=== PATIENT | male | born 1940 | race Caucasian/White ===

== ENCOUNTER 2016-03-03 17:23 | Emergency (ER) | payer MEDICARE, OTHER ==
[2016-03-03 18:41] LABS: Urine Bacteria Absent (Absent); Urine Bilirubin Negative (Negative); Urine Glucose Negative (Negative); Urine Nitrite Negative (Negative)
[2016-03-03 19:46] LABS: Hematocrit 25 % (42-52); Hemoglobin 7.7 g/dl (14.0-18.0); Mean Corpuscular HGB Conc 31 g/dl (31-36); Mean Corpuscular Hemoglobin 25 pg (27-31); Mean Corpuscular Volume 79 fL (80-94); Mean Platelet Volume 9 um3 (7.4-10.4); Red Blood Count 3.09 10^6/ul (4.0-5.4); Red Cell Distribution Width 21 % (10.5-15); White Blood Count 2.2 10^3/ul (3.5-10.8)
[2016-03-03 19:47] LABS: Add Diff/Slide Review? Manual Diff Added; Comments Flag Yes
[2016-03-03 20:01] LABS: Albumin 3.6 g/dL (3.2-5.2); BUN/Creatinine Ratio 17.2 (8-20); Calcium 9.1 mg/dL (8.6-10.3); EGFR African American 94.3 (>60); EGFR Non-African American 73.3 (>60); Globulin 3.7 g/dL (2-4); Total Bilirubin 0.3 mg/dL (0.2-1.0); Total Protein 7.3 g/dL (6.4-8.9)
[2016-03-03 20:23] LABS: Hypochromasia 2+; Immature Granulocytes 2 % (0-9); Macrocytosis 1+; Microcytosis 1+; Neutrophil % 38 % (38-83); Polychromasia 1+
[2016-03-03 20:59] VITALS: BP 129/83
--- NOTE | 2016-03-04 00:19 | ED ---
Kulwinder Powers Karl, scribed for Parvez Virgen MD on 03/03/16 at 1748 . GI/ HPI - HPI Summary HPI Summary: Pt is a 75 y/o male that presents to the ED c/o pain w/ urination for approx 1 week. Pt was given Bactrim for his sx and took one dose last night and this morning. Pt urinated a few hours ago and saw blood in his urine and came to the ED because he is on Coumadin and is concerned. Pt also reported his pain as a burning pain with urination. Pt denied nausea, SOB, and back pain. Hx: CVA (2013 ), myelodisplastic syndrome, kidney stones, BPH. CAD, quadruple bypass. - History of Current Complaint Time Seen by Provider: 03/03/16 17:34 Stated Complaint: UTI BLOOD IN URINE Hx Obtained From: Patient Onset/Duration: Started Weeks Ago - 1, Atraumatic, Still Present Timing: Constant Severity: Moderate Current Severity: Moderate Associated Signs and Symptoms: Positive: Hematuria, Dysuria. Negative: Back Pain, Nausea Aggravating Factor(s): Nothing Alleviating Factor(s): Nothing - Additional Pertinent History Primary Care Physician: [id number] - Allergy/Home Medications Allergies/Adverse Reactions: Allergies Allergy/AdvReac Type Severity Reaction Status Date / Time Shellfish Allergy Allergy Severe Airway Verified 02/05/16 14:53 Obstruction Lactose Intolerance (GI) Allergy GI Upset Verified 02/05/16 14:53 walnuts Allergy Intermediate Airway Uncoded 02/05/16 14:53 Obstruction PMH/Surg Hx/FS Hx/Imm Hx Endocrine/Hematology History: Reports: Hx Anticoagulant Therapy, Hx Bone Marrow Disease - myelodysplastic syndrome Denies: Hx Diabetes Cardiovascular History: Reports: Hx Angina, Hx Coronary Artery Disease, Hx Hypercholesterolemia, Hx Hypertension - ON MEDS, Hx Syncope, Other Cardiovascular Problems/Disorders - LBBB Denies: Hx Congestive Heart Failure, Hx Pacemaker/ICD Respiratory History: Reports: Hx Sleep Apnea - pt states this may be new to him , unsure. Denies: Hx Asthma, Hx Chronic Obstructive Pulmonary Disease (COPD) GI History: Reports: Hx Gastroesophageal Reflux Disease, Other GI Disorders - GERD History: Reports: Hx Benign Prostatic Hyperplasia, Hx Kidney Stones, Hx Renal Disease - KIDNEY STONES, Other Problems/Disorders - KIDNEY STONES,BPH Denies: Hx Dialysis Musculoskeletal History: Reports: Hx Back Problems, Other Musculoskeletal History - Lumbar spinal stenosis Sensory History: Reports: Hx Contacts or Glasses Denies: Hx Hearing Aid Opthamlomology History: Reports: Hx Contacts or Glasses Neurological History: Reports: Other Neuro Impairments/Disorders - lumbar stenosis Psychiatric History: Reports: Hx Depression Denies: Hx Panic Disorder - Cancer History Cancer Type, Location and Year: prostate - SURGERY Hx Chemotherapy: No Hx Radiation Therapy: No Hx Palliative Cancer Treatment: No - Surgical History Surgery Procedure, Year, and Place: CABG,CATARACT REMOVAL,PROSTATECTOMY,kidney stones,spinal stenosis. QUADRUPAL BYPASS-TONSILS Infectious Disease History: No Infectious Disease History: Reports: Hx Shingles - HX of Denies: Traveled Outside the [place] in Last 30 Days - Family History Known Family History: Positive: Cardiac Disease - Social History Alcohol Use: Rare Alcohol Amount: 1 drink per week Substance Use Type: Reports: None Smoking Status (MU): Former Smoker Type: Cigarettes Have You Smoked in the Last Year: No Review of Systems Constitutional: Negative Eyes: Negative ENT: Negative Cardiovascular: Negative Negative: Shortness Of Breath Negative: Nausea Positive: other - hematuria. Negative: pain - burning w/ urination Musculoskeletal: Negative Skin: Negative Neurological: Negative Psychological: Normal All Other Systems Reviewed And Are Negative: Yes Physical Exam Triage Information Reviewed: Yes Vital Signs On Initial Exam: Initial Vitals Temp Pulse Resp BP Pulse Ox 99.6 F 79 18 145/63 97 03/03/16 17:31 03/03/16 17:31 03/03/16 17:31 03/03/16 17:31 03/03/16 17:31 Vital Signs Reviewed: Yes Appearance: Positive: Well-Appearing, No Pain Distress Skin: Positive: Warm, Skin Color Reflects Adequate Perfusion, Dry Head/Face: Positive: Normal Head/Face Inspection Eyes: Positive: Normal ENT: Positive: Normal ENT inspection Neck: Positive: Supple, Nontender Respiratory/Lung Sounds: Positive: Clear to Auscultation, Breath Sounds Present Cardiovascular: Positive: RRR Abdomen Description: Positive: Nontender, Soft Bowel Sounds: Positive: Present Musculoskeletal: Positive: Normal Neurological: Positive: Normal Psychiatric: Positive: Normal Diagnostics - Vital Signs Vital Signs Temp Pulse Resp BP Pulse Ox 03/03/16 17:31 99.6 F 79 18 145/63 97 - Laboratory Lab Results: Lab Results 01/03/03/16 03/03/16 Range/Units 18:27 19:36 19:36 WBC 2.2 L (3.5-10.8) 10^3/ul RBC 3.09 L (4.0-5.4) 10^6/ul Hgb 7.7 L (14.0-18.0) g/dl Hct 25 L (42-52) % MCV 79 L (80-94) fL MCH 25 L (27-31) pg MCHC 31 (31-36) g/dl RDW 21 H (10.5-15) % Plt Count 81 L (150-450) 10^3/ul MPV 9 (7.4-10.4) um3 Immature Gran % (Auto) 2 (0-9) % Absolute Neuts (auto) 0.9 L* (1.5-7.7) 10^3/ul Absolute Lymphs (auto) 1.1 (1.0-4.8) 10^3/ul Absolute Monos (auto) 0.2 (0-0.8) 10^3/ul Absolute Eos (auto) 0 (0-0.6) 10^3/ul Absolute Basos (auto) 0 (0-0.2) 10^3/ul Absolute Nucleated RBC 0 10^3/ul Neutrophils % 38 (38-83) % Band Neutrophils % 2 (0-8) % Lymphocytes % 58 H (25-47) % Monocytes % 2 (0-13) % Normal RBC Morphology Not Reportable Polychromasia 1+ Hypochromasia 2+ Microcytosis 1+ Macrocytosis 1+ INR (Anticoag Therapy) 1.66 H (0.89-1.11) APTT 31.0 (26.0-36.3) seconds Sodium (133-145) mmol/L Potassium (3.5-5.0) mmol/L Chloride (101-111) mmol/L Carbon Dioxide (22-32) mmol/L Anion Gap (2-11) mmol/L BUN (6-24) mg/dL Creatinine (0.67-1.17) mg/dL Est GFR ( Amer) (>60) Est GFR (Non-Af Amer) (>60) BUN/Creatinine Ratio (8-20) Glucose (70-100) mg/dL Calcium (8.6-10.3) mg/dL Total Bilirubin (0.2-1.0) mg/dL AST (13-39) U/L ALT (7-52) U/L Alkaline Phosphatase (34-104) U/L Total Protein (6.4-8.9) g/dL Albumin (3.2-5.2) g/dL Globulin (2-4) g/dL Albumin/Globulin Ratio (1-3) Urine Color Red A Urine Appearance Cloudy Urine pH 6.0 (5-9) Ur Specific [place] 1.019 (1.010-1.030) Urine Protein 2+(100 mg/dl) H (Negative) Urine Ketones Negative (Negative) Urine Blood 3+ H (Negative) Urine Nitrate Negative (Negative) Urine Bilirubin Negative (Negative) Urine Urobilinogen Negative (Negative) Ur Leukocyte Esterase Trace H (Negative) Urine WBC (Auto) 3+(>20/hpf) H (Absent) Urine RBC (Auto) 3+(>10/hpf) H (Absent) Urine Bacteria Absent (Absent) Urine Glucose Negative (Negative) Urine Ascorbic Acid * H (Negative) 03/03/16 Range/Units 19:36 WBC (3.5-10.8) 10^3/ul RBC (4.0-5.4) 10^6/ul Hgb (14.0-18.0) g/dl Hct (42-52) % MCV (80-94) fL MCH (27-31) pg MCHC (31-36) g/dl RDW (10.5-15) % Plt Count (150-450) 10^3/ul MPV (7.4-10.4) um3 Immature Gran % (Auto) (0-9) % Absolute Neuts (auto) (1.5-7.7) 10^3/ul Absolute Lymphs (auto) (1.0-4.8) 10^3/ul Absolute Monos (auto) (0-0.8) 10^3/ul Absolute Eos (auto) (0-0.6) 10^3/ul Absolute Basos (auto) (0-0.2) 10^3/ul Absolute Nucleated RBC 10^3/ul Neutrophils % (38-83) % Band Neutrophils % (0-8) % Lymphocytes % (25-47) % Monocytes % (0-13) % Normal RBC Morphology Polychromasia Hypochromasia Microcytosis Macrocytosis INR (Anticoag Therapy) (0.89-1.11) APTT (26.0-36.3) seconds Sodium 134 (133-145) mmol/L Potassium 4.0 (3.5-5.0) mmol/L Chloride 102 (101-111) mmol/L Carbon Dioxide 27 (22-32) mmol/L Anion Gap 5 (2-11) mmol/L BUN 17 (6-24) mg/dL Creatinine 0.99 (0.67-1.17) mg/dL Est GFR ( Amer) 94.3 (>60) Est GFR (Non-Af Amer) 73.3 (>60) BUN/Creatinine Ratio 17.2 (8-20) Glucose 97 (70-100) mg/dL Calcium 9.1 (8.6-10.3) mg/dL Total Bilirubin 0.30 (0.2-1.0) mg/dL AST 15 (13-39) U/L ALT 11 (7-52) U/L Alkaline Phosphatase 85 (34-104) U/L Total Protein 7.3 (6.4-8.9) g/dL Albumin 3.6 (3.2-5.2) g/dL Globulin 3.7 (2-4) g/dL Albumin/Globulin Ratio 1.0 (1-3) Urine Color Urine Appearance Urine pH (5-9) Ur Specific [place] (1.010-1.030) Urine Protein (Negative) Urine Ketones (Negative) Urine Blood (Negative) Urine Nitrate (Negative) Urine Bilirubin (Negative) Urine Urobilinogen (Negative) Ur Leukocyte Esterase (Negative) Urine WBC (Auto) (Absent) Urine RBC (Auto) (Absent) Urine Bacteria (Absent) Urine Glucose (Negative) Urine Ascorbic Acid (Negative) Result Diagrams: 03/03/16 19:36 03/03/16 19:36 Lab Statement: Any lab studies that have been ordered have been reviewed, and results considered in the medical decision making process. 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 He has had dysuria for about a week and was started on Bactrim yesterday. He has had two doses. He was particularily concerned because he is normally quite anemic with myelodysplasia. His H&H was 7.7/24 which is normal for him and his INR was actually low at 1.66. I think he is safe to go home and F/U closely with his PMD. - Diagnoses Provider Diagnoses: UTI (urinary tract infection), Hematuria - Physician Notifications Discussed Care Of Patient With: Dr. Umanzor (Oncology) at 20:21. Discharge - Discharge Plan Condition: Stable Disposition: HOME Patient Education Materials: Urinary Tract Infection in Men (ED), Hematuria (ED ) Referrals: Mattie Drew MD [Primary Care Provider] - Additional Instructions: Please follow up with your primary care provider. Return to the emergency department for changing or worsening symptoms. The documentation as recorded by the Kulwinder nieves Karl accurately reflects the service I personally performed and the decisions made by me, Parvez Virgen MD.
== END 2016-03-03 20:56 | disposition home or self-care (01) ==
LOC: ED 17:23
DX: N39.0 Urinary tract infection, site not specified (principal); R31.0 Gross hematuria; Z87.891 Personal history of nicotine dependence; Z86.73 Personal history of transient ischemic attack (TIA), and cerebral infarction without residual deficits; D46.9 Myelodysplastic syndrome, unspecified; Z87.442 Personal history of urinary calculi; N40.0 Benign prostatic hyperplasia without lower urinary tract symptoms; I25.10 Atherosclerotic heart disease of native coronary artery without angina pectoris; Z95.1 Presence of aortocoronary bypass graft; Z79.01 Long term (current) use of anticoagulants; I10 Essential (primary) hypertension; E78.00 Pure hypercholesterolemia, unspecified; I44.7 Left bundle-branch block, unspecified; K21.9 Gastro-esophageal reflux disease without esophagitis; F32.9 Major depressive disorder, single episode, unspecified
CPT/HCPCS: 36415; 80053; 81003; 81015; 85025; 85610; 85730; 87086; 99283

== ENCOUNTER 2016-03-03 23:35 | Emergency (ER) | payer MEDICARE, OTHER ==
[2016-03-04 01:30] LABS: Hematocrit 23 % (42-52); Hemoglobin 7.3 g/dl (14.0-18.0)
[2016-03-04 01:32] LABS: Comments Flag Yes
[2016-03-04 03:24] VITALS: BP 110/54
--- NOTE | 2016-03-04 12:34 | ED ---
Kulwinder Powers Karl, scribed for Parvez Virgen MD on 03/03/16 at 2355 . GI/ HPI - HPI Summary HPI Summary: Pt is a 75 y/o male that presents to the ED c/o hematuria earlier tonight. Pt was here for thae same problem earlier tonight but , at bedside, stated that after they returned home the pt had dinner and before bed the pt wanted to pee. While the pt was urinating the nurse reported that there were large clots of blood coming out of his urethra. Hx: similar episode earlier tonight. - History of Current Complaint Chief Complaint: EDUrogenitalProblems Time Seen by Provider: 03/03/16 23:46 Stated Complaint: BLOOD IN URINE/HERE 3 HRS AGO Hx Obtained From: Patient Onset/Duration: Started Hours Ago, Atraumatic, Still Present Timing: Constant Severity: Moderate Current Severity: Moderate Pain Intensity: 0 Additional Locations for Males: Penis - urethra Associated Signs and Symptoms: Positive: Hematuria Aggravating Factor(s): Nothing Alleviating Factor(s): Nothing - Additional Pertinent History Primary Care Physician: SARAH - Allergy/Home Medications Allergies/Adverse Reactions: Allergies Allergy/AdvReac Type Severity Reaction Status Date / Time Shellfish Allergy Allergy Severe Airway Verified 02/05/16 14:53 Obstruction Lactose Intolerance (GI) Allergy GI Upset Verified 02/05/16 14:53 walnuts Allergy Intermediate Airway Uncoded 02/05/16 14:53 Obstruction PMH/Surg Hx/FS Hx/Imm Hx Endocrine/Hematology History: Reports: Hx Anticoagulant Therapy, Hx Bone Marrow Disease - myelodysplastic syndrome Denies: Hx Diabetes Cardiovascular History: Reports: Hx Angina, Hx Coronary Artery Disease, Hx Hypercholesterolemia, Hx Hypertension - ON MEDS, Hx Syncope, Other Cardiovascular Problems/Disorders - LBBB Denies: Hx Congestive Heart Failure, Hx Pacemaker/ICD Respiratory History: Reports: Hx Sleep Apnea - pt states this may be new to him , unsure. Denies: Hx Asthma, Hx Chronic Obstructive Pulmonary Disease (COPD) GI History: Reports: Hx Gastroesophageal Reflux Disease, Other GI Disorders - GERD History: Reports: Hx Benign Prostatic Hyperplasia, Hx Kidney Stones, Hx Renal Disease - KIDNEY STONES, Other Problems/Disorders - KIDNEY STONES,BPH Denies: Hx Dialysis Musculoskeletal History: Reports: Hx Back Problems, Other Musculoskeletal History - Lumbar spinal stenosis Sensory History: Reports: Hx Contacts or Glasses Denies: Hx Hearing Aid Opthamlomology History: Reports: Hx Contacts or Glasses Neurological History: Reports: Other Neuro Impairments/Disorders - lumbar stenosis Psychiatric History: Reports: Hx Depression Denies: Hx Panic Disorder - Cancer History Cancer Type, Location and Year: prostate - SURGERY Hx Chemotherapy: No Hx Radiation Therapy: No Hx Palliative Cancer Treatment: No - Surgical History Surgery Procedure, Year, and Place: CABG,CATARACT REMOVAL,PROSTATECTOMY,kidney stones,spinal stenosis. QUADRUPAL BYPASS-TONSILS Infectious Disease History: No Infectious Disease History: Reports: Hx Shingles - HX of Denies: Traveled Outside the [place] in Last 30 Days - Family History Known Family History: Positive: Cardiac Disease - Social History Alcohol Use: Rare Alcohol Amount: 1 drink per week Substance Use Type: Reports: None Smoking Status (MU): Former Smoker Type: Cigarettes Have You Smoked in the Last Year: No Review of Systems Constitutional: Negative Eyes: Negative ENT: Negative Cardiovascular: Negative Respiratory: Negative Gastrointestinal: Negative Positive: hematuria Musculoskeletal: Negative Skin: Negative Neurological: Negative Psychological: Normal All Other Systems Reviewed And Are Negative: Yes Physical Exam Triage Information Reviewed: Yes Vital Signs On Initial Exam: Initial Vitals Temp Pulse Resp BP Pulse Ox 99.5 F 78 18 108/54 100 03/03/16 23:42 03/03/16 23:42 03/03/16 23:42 03/03/16 23:42 03/03/16 23:42 Vital Signs Reviewed: Yes Appearance: Positive: Well-Appearing, No Pain Distress Skin: Positive: Warm, Skin Color Reflects Adequate Perfusion, Dry Head/Face: Positive: Normal Head/Face Inspection Eyes: Positive: Normal ENT: Positive: Normal ENT inspection Respiratory/Lung Sounds: Positive: Clear to Auscultation, Breath Sounds Present Cardiovascular: Positive: RRR Abdomen Description: Positive: Nontender, Soft Bowel Sounds: Positive: Present Musculoskeletal: Positive: Normal Neurological: Positive: Normal Psychiatric: Positive: Normal, Affect/Mood Appropriate Diagnostics - Vital Signs Vital Signs Temp Pulse Resp BP Pulse Ox 03/03/16 23:42 99.5 F 78 18 108/54 100 - Laboratory Result Diagrams: 03/04/16 01:20 Lab Statement: Any lab studies that have been ordered have been reviewed, and results considered in the medical decision making process. 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 He has passed urine twice now since which is red tinged. We are observing him and rechecking his H&H. - Diagnoses Provider Diagnoses: UTI (urinary tract infection), Gross hematuria Discharge - Discharge Plan Condition: Stable Disposition: HOME Patient Education Materials: Hematuria (ED) Referrals: Mattie Drew MD [Primary Care Provider] - Additional Instructions: Please follow up with your primary care provider. Return to the emergency department for changing or worsening symptoms. The documentation as recorded by the Kulwinder nieves Karl accurately reflects the service I personally performed and the decisions made by me, Parvez Virgen MD.
--- NOTE | 2016-05-13 00:55 | PN ---
I, Treva Mcgee, scribed for Slade Gonzalez MD on 03/04/16 at 0323 . Progress Note - Progress Note Note: Sign-out from Dr. Virgen. 0200: Re-eval #1. Results discussed with pt and . Urine remains pink tinged, no further clots. Pt able to urinate. D/C home, pt stable. The documentation as recorded by the araceliibArely udggan SooYoung accurately reflects the service I personally performed and the decisions made by me, Slade Gonzalez MD.
== END 2016-03-04 03:23 | disposition home or self-care (01) ==
LOC: ED 23:35
DX: N39.0 Urinary tract infection, site not specified (principal); R31.0 Gross hematuria; Z87.891 Personal history of nicotine dependence
CPT/HCPCS: 36415; 85014; 85018; 99282

== ENCOUNTER 2016-04-03 16:58 | Emergency (ER) | payer OTHER ==
[2016-04-03 20:14] VITALS: BP 128/65
--- NOTE | 2016-05-06 14:42 | UC ---
Sandy Powers Janilya, scribed for KevinDoris DO Day on 04/03/16 at 1931 . Back Pain HPI - HPI Summary HPI Summary: A 76 y/o male came in to [facility] presenting w/ a sudden onset of constant back pain starting yesterday. Pt has a PMHx CVA 2 years ago, and consequently, pt does not have a great balance and uses a wheelchair. 3 days ago, while trying to reach for his wheelchair, he fell and hit his left side. He injured his 4th finger and there is also bruising and erythema of his back. He was in pain but it was not too concerning. Pt reports that additionally yesterday after dinner, he sneezed and he felt "all of his bones". Immediately after, pt started having extreme back pain of 8/10 severity. The pain does not radiate but it moves around. It is worse with any movement and nothing makes it better. The pain is described as dull and penetrating pain. Pt denies confusion, dizziness, numbness , tingling, n/v/d, urinary Sx, abd pain, CP, SOB. Pt is on coumadin. PMHx CVA, anemia, urinary infection 2 weeks ago that is now resolved. - History of Current Complaint Chief Complaint: UCBackPain Stated Complaint: BACK INJURY FROM FALL Time Seen by Provider: 04/03/16 18:54 Hx Obtained From: Patient Onset/Duration: Sudden Onset, Lasting Days, Still Present Timing: Constant, Lasting Days Severity Initially: Moderate Severity Currently: Moderate Pain Intensity: 8 Character: Dull Aggravating: Movement Alleviating: Nothing Associated Signs And Symptoms: Negative: Numbness, Tingling - Allergies/Home Medications Allergies/Adverse Reactions: Allergies Allergy/AdvReac Type Severity Reaction Status Date / Time Shellfish Allergy Allergy Severe Airway Verified 04/07/16 15:50 Obstruction Lactose Intolerance (GI) Allergy GI Upset Verified 04/07/16 15:50 walnuts Allergy Intermediate Airway Uncoded 04/07/16 15:50 Obstruction Home Medications: Home Medications Acetaminophen TAB* [Tylenol TAB*] 650 mg PO PRN 04/03/16 [History] Polyethylene Glycol 3350* [Miralax*] 04/03/16 [History] PMH/Surg Hx/FS Hx/Imm Hx Previously Healthy: Yes Endocrine History Of: Denies: Diabetes Cardiovascular History Of: Reports: Cardiac Disorders - CAD, CHF 30-35%, Hypertension - ON MEDS Denies: Pacemaker/ICD, Congestive Heart Failure Respiratory History Of: Denies: COPD, Asthma GI/ History Of: Reports: Kidney Stones, Renal Disease - KIDNEY STONES Neurological History Of: Reports: CVA - CVA/TIA x 6 Psychological History Of: Reports: Depression Other History Of: Anticoagulant Therapy - Surgical History Surgical History: Yes Surgery Procedure, Year, and Place: CABG,CATARACT REMOVAL,PROSTATECTOMY,kidney stones,spinal stenosis. QUADRUPAL BYPASS-TONSILS - Family History Known Family History: Positive: Cardiac Disease - Social History Occupation: Retired Lives: At [employer] Alcohol Use: Rare Alcohol Amount: 1 drink per week Substance Use Type: None Smoking Status (MU): Former Smoker Type: Cigarettes Have You Smoked in the Last Year: No - Immunization History Most Recent Influenza Vaccination: 2014 Most Recent Tetanus Shot: cannot recall Most Recent Pneumonia Vaccination: 11/02/2012 Review of Systems Constitutional: Negative Skin: Bruising Eyes: Negative ENT: Negative Respiratory: Negative Cardiovascular: Negative Gastrointestinal: Negative Genitourinary: Negative Motor: Negative Neurovascular: Negative Musculoskeletal: Arthralgia - back pain, bruising and erythema of back, Myalgia - back pain, bruising and erythema of back Neurological: Negative Psychological: Negative All Other Systems Reviewed And Are Negative: Yes Physical Exam Triage Information Reviewed: Yes Appearance: Well-Appearing, No Pain Distress, Well-Nourished Vital Signs: Initial Vital Signs Temp 99.4 F 04/03/16 17:51 Pulse 92 04/03/16 17:51 Resp 16 04/03/16 17:51 BP 117/73 04/03/16 17:51 Pulse Ox 100 04/03/16 17:51 Vital Signs Reviewed: Yes Eyes: Positive: Conjunctiva Clear. Negative: Discharge ENT: Positive: Hearing grossly normal. Negative: Muffled/hoarse voice Neck exam: Normal Neck: Positive: Supple Respiratory: Positive: Lungs clear, Normal breath sounds, No respiratory distress, No accessory muscle use Cardiovascular: Positive: RRR, No Murmur, Other: - Heart sounds are distant and difficult to appreciate. Abdomen Description: Positive: Soft, Other: - Large Knight Izaguirre's sign left of left flank tender to palpation.. Negative: Distended, Guarding Bowel Sounds: Positive: Present Musculoskeletal: Positive: Other: - Large Knight Izaguirre's sign left of left flank tender to palpation. Neurological Exam: Normal Neurological: Positive: Alert Psychological Exam: Normal Psychological: Positive: Age Appropriate Behavior Skin Exam: Normal Skin: Positive: Other - Large Knight Izaguirre's sign left of left flank tender to palpation. Back Pain Course/Dx - Differential Dx/Diagnosis Differential Diagnosis/HQI/PQRI: Renal Colic, Strain, Sprain, Other - internal bleeding Provider Diagnoses: trunchal trama, anticoagulated patient, hematuria Discharge - Discharge Plan Condition: Stable Disposition: TRANS HIGHER LVL OF CARE FAC Referrals: Mattie Drew MD [Primary Care Provider] - The documentation as recorded by the Sadny nieves Janilya accurately reflects the service I personally performed and the decisions made by , Doris Brown DO.
== END 2016-04-03 20:00 | disposition short-term general hospital (02) ==
LOC: UCEAST 16:58
DX: S39.92XA Unspecified injury of lower back, initial encounter (principal); X58.XXXA Exposure to other specified factors, initial encounter; Y93.9 Activity, unspecified; Y92.9 Unspecified place or not applicable; R31.9 Hematuria, unspecified; I25.10 Atherosclerotic heart disease of native coronary artery without angina pectoris; I44.7 Left bundle-branch block, unspecified; K21.9 Gastro-esophageal reflux disease without esophagitis; Z87.442 Personal history of urinary calculi; F32.9 Major depressive disorder, single episode, unspecified; Z87.891 Personal history of nicotine dependence
CPT/HCPCS: 99213; G0463

== ENCOUNTER 2016-04-03 20:28 | Emergency (ER) | payer OTHER ==
--- NOTE | 2016-04-03 21:52 | ED ---
Deon Powers Michael, scribed for Armaan Rubi MD on 04/03/16 at 2110 . Adult Trauma - HPI Summary HPI Summary: 76 y/o male was BIBA to the ED after visiting Urgent Care today. The pt presents with lumbar pain that started immediately after a mechanical fall 6 days ago per . The reports that the pt sneezed last night that started lumbar pain immediately. The pt had Tylenol at 0900 that slightly alleviated the pain. He did not have a LOC. - History of Current Complaint Stated Complaint: BACK PAIN Time Seen by Provider: 04/03/16 20:51 Hx Obtained From: Family/Box Feeder, Medical Records Mechanism of Injury: Fall Loss of Consciousness: no loss of consciousness Onset/Duration: Started Days Ago, Still Present, Worse Since - last night Onset of Pain: Immediate Onset Severity: Moderate Current Severity: Moderate Location: Back Associated Signs & Symptoms: Positive: Other: - back pain.. Negative: Loss of Consciousness - Additional Pertinent History Primary Care Physician: SARAH - Allergy/Home Medications Allergies/Adverse Reactions: Allergies Allergy/AdvReac Type Severity Reaction Status Date / Time Shellfish Allergy Allergy Severe Airway Verified 04/03/16 18:00 Obstruction Lactose Intolerance (GI) Allergy GI Upset Verified 04/03/16 18:00 walnuts Allergy Intermediate Airway Uncoded 02/05/16 14:53 Obstruction PMH/Surg Hx/FS Hx/Imm Hx Endocrine/Hematology History: Reports: Hx Anticoagulant Therapy, Hx Bone Marrow Disease - myelodysplastic syndrome Denies: Hx Diabetes Cardiovascular History: Reports: Hx Angina, Hx Coronary Artery Disease, Hx Hypercholesterolemia, Hx Hypertension - ON MEDS, Hx Syncope, Other Cardiovascular Problems/Disorders - LBBB Denies: Hx Congestive Heart Failure, Hx Pacemaker/ICD Respiratory History: Reports: Hx Sleep Apnea - pt states this may be new to him , unsure. Denies: Hx Asthma, Hx Chronic Obstructive Pulmonary Disease (COPD) GI History: Reports: Hx Gastroesophageal Reflux Disease, Other GI Disorders - GERD History: Reports: Hx Benign Prostatic Hyperplasia, Hx Kidney Stones, Hx Renal Disease - KIDNEY STONES, Other Problems/Disorders - KIDNEY STONES,BPH Denies: Hx Dialysis Musculoskeletal History: Reports: Hx Back Problems, Other Musculoskeletal History - Lumbar spinal stenosis Sensory History: Reports: Hx Contacts or Glasses Denies: Hx Hearing Aid Opthamlomology History: Reports: Hx Contacts or Glasses Neurological History: Reports: Other Neuro Impairments/Disorders - lumbar stenosis Psychiatric History: Reports: Hx Depression Denies: Hx Panic Disorder - Cancer History Cancer Type, Location and Year: prostate - SURGERY Hx Chemotherapy: No Hx Radiation Therapy: No Hx Palliative Cancer Treatment: No - Surgical History Surgery Procedure, Year, and Place: CABG,CATARACT REMOVAL,PROSTATECTOMY,kidney stones,spinal stenosis. QUADRUPAL BYPASS-TONSILS Infectious Disease History: Reports: Hx Shingles - HX of Denies: Traveled Outside the [place] in Last 30 Days - Family History Known Family History: Positive: Cardiac Disease - Social History Occupation: Retired Lives: With Family Alcohol Use: Rare Alcohol Amount: 1 drink per week Substance Use Type: Reports: None Smoking Status (MU): Former Smoker Type: Cigarettes Have You Smoked in the Last Year: No Review of Systems Negative: Fever Positive: Other - back pain Negative: Syncope All Other Systems Reviewed And Are Negative: Yes Physical Exam Triage Information Reviewed: Yes Vital Signs On Initial Exam: Initial Vitals Temp Pulse Resp BP Pulse Ox 97.9 F 66 20 124/56 100 04/03/16 20:50 04/03/16 20:50 04/03/16 20:50 04/03/16 20:50 04/03/16 20:50 Vital Signs Reviewed: Yes Appearance: Positive: Obese - mild discomfort, Thin Skin: Positive: Warm, Pale Head/Face: Positive: Normal Head/Face Inspection Eyes: Positive: TERI ENT: Positive: Hearing grossly normal Neck: Positive: Supple, Nontender Respiratory/Lung Sounds: Positive: Breath Sounds Present Cardiovascular: Positive: RRR Abdomen Description: Positive: Nontender, Soft Musculoskeletal: Positive: Other - area of ecchymosis to flank area, non tender Neurological: Positive: Sensory/Motor Intact Diagnostics - Vital Signs Vital Signs Temp Pulse Resp BP Pulse Ox 04/03/16 20:50 97.9 F 66 20 124/56 100 - Laboratory Result Diagrams: 04/03/16 21:50 04/03/16 21:50 Lab Statement: Any lab studies that have been ordered have been reviewed, and results considered in the medical decision making process. - CT ABD/PEL CT CT Interpretation: Positive (See Comments) - There is no evidence of laceration or contusion of the abdominal organs. THe liver, spleen, and kidneys are intact. No abdominal, retroperitoneal, or pelvic hematoma. 2 tiny gallstones are noted. Hiatal hernia noted. There is no hydronephrosis. There is left parapelvic renal cyst. There is sigmoid diverticulosis without obvious diverticulitis. The urinary bladder is intact. No acture fracture identified. CT Interpretation Completed By: Radiologist Re-Evaluation - Re-Evaluation First Eval Comment: d/w dr vallecillo states if pt asymptomatic, would not transfuse Adult Trauma Course/Dx - Course Course Of Treatment: Consulted Dr. Vallecillo- [phone]: Dr. Vallecillo was informed of the pt and agrees to discharge pt if CT and other work up is normal. - Diagnoses Provider Diagnoses: Back pain, Back contusion Discharge - Discharge Plan Condition: Stable Disposition: HOME Patient Education Materials: Back Pain (ED) Referrals: Benny Vallecillo MD [Medical Doctor] - Additional Instructions: You will follow up with Dr. Vallecillo in the next 2 days. Please return to the ED if your symptoms worsen. The documentation as recorded by the Deon nieves Michael accurately reflects the service I personally performed and the decisions made by me, Armaan Rubi MD.
[2016-04-03 22:02] LABS: Hematocrit 21 % (42-52); Mean Corpuscular HGB Conc 30 g/dl (31-36); Mean Corpuscular Hemoglobin 23 pg (27-31); Mean Corpuscular Volume 76 fL (80-94); Mean Platelet Volume 10 um3 (7.4-10.4); Red Blood Count 2.73 10^6/ul (4.0-5.4); Red Cell Distribution Width 22 % (10.5-15); White Blood Count 2.3 10^3/ul (3.5-10.8)
[2016-04-03 22:03] LABS: Add Diff/Slide Review? Manual Diff Added; Comments Flag Yes
[2016-04-03 22:04] LABS: Hemoglobin 6.3 g/dl (14.0-18.0)
[2016-04-03 22:05] LABS: Urine Bilirubin Negative (Negative); Urine Glucose Negative (Negative); Urine Nitrite Negative (Negative)
[2016-04-03 22:15] LABS: BUN/Creatinine Ratio 21.7 (8-20); Calcium 8.9 mg/dL (8.6-10.3); EGFR African American 115.2 (>60); EGFR Non-African American 89.6 (>60); Potassium 3.7 mmol/L (3.5-5.0)
[2016-04-03 22:23] LABS: Eosinophils % 1 % (0-6); Hypochromasia 1+; Immature Granulocytes 8 % (0-9); Macrocytosis 2+; Microcytosis 3+; Neutrophil % 32 % (38-83); Reactive Lymph % 1 % (0-6)
[2016-04-03] MEDS ORDERED: Acetaminophen TAB* 325 MG PO ONE (23:56)
[2016-04-04 00:26] VITALS: BP 111/54
--- NOTE | 2016-04-04 07:34 | RAD ---
CLINICAL HISTORY: Fall, back pain, hematoma COMPARISON: None TECHNIQUE: Multiple contiguous axial CT scans were obtained of the abdomen and pelvis, without intravenous contrast enhancement. Coronal and sagittal multiplanar reformations are submitted for review. Oral contrast was not administered. FINDINGS: The study is limited by the lack of intravenous contrast. This limits evaluation of the solid organs and vasculature. LUNG BASES: The lung bases are clear. LIVER: The liver is normal in shape, size, contour, and attenuation. BILE DUCTS: There is no intrahepatic or extrahepatic biliary dilatation. GALLBLADDER: Gallstones are noted. There is no pericholecystic inflammatory change. PANCREAS: The pancreas is normal, without mass or ductal dilatation. SPLEEN: There are calcified granulomas of the spleen. UPPER GI TRACT: Evaluation of the gastrointestinal tract is limited by incomplete gastric distention. There is a small sliding hiatal hernia SMALL BOWEL AND MESENTERY: The small bowel is normal in contour, course, and caliber. There is no obstruction or dilatation. COLON: There are multiple diverticula of the sigmoid colon. There is no pericolonic inflammatory change. ADRENALS: Normal bilaterally. KIDNEYS: There is a 0.3 cm calculus of the lower pole of the right kidney. There is a parapelvic simple cyst of the left kidney. There is no appreciable hydronephrosis. BLADDER: The bladder is smooth in contour. PELVIC ORGANS: The pelvic organs are not visualized. AORTA: There is calcific atherosclerotic disease of the abdominal aorta and its branches, without aneurysmal dilatation IVC: Unremarkable LYMPH NODES: There is no lymphadenopathy by size criteria. ABDOMINAL WALL: There is a small fat-containing of focal hernia BONES AND SOFT TISSUES: There is mild extra scoliotic curvature of the spine. There is diffuse osteopenia. There is a laminectomy defect is noted from L3 through L5. There is no osseous central canal stenosis. There is moderate to severe neural foraminal narrowing on the left at L3-L4, L4-L5, and L5-S1 and to a lesser extent on the right at the same levels. There is stranding of the subcutaneous soft tissue along the left flank multilevel anterolateral marginal osteophyte formation. There is diffuse facet osteoarthritic change. OTHER: None IMPRESSION: 1. THERE IS STRANDING OF THE SUBCUTANEOUS FAT ALONG THE LEFT FLANK, CONSISTENT WITH A SMALL AMOUNT OF SUBCUTANEOUS HEMATOMA GIVEN THE HISTORY OF TRAUMA, WITHOUT RETROPERITONEAL HEMATOMA. 2. CHOLELITHIASIS WITHOUT PERICHOLECYSTIC INFLAMMATORY CHANGE. 3. DIVERTICULOSIS. 4. ATHEROSCLEROSIS. 5. DEGENERATIVE DISC DISEASE AND OSTEOARTHRITIS, WITHOUT ACUTE OSSEOUS INJURY
== END 2016-04-04 00:25 | disposition home or self-care (01) ==
LOC: ED 20:28
DX: S30.0XXA Contusion of lower back and pelvis, initial encounter (principal); M54.5 Low back pain; I25.10 Atherosclerotic heart disease of native coronary artery without angina pectoris; I44.7 Left bundle-branch block, unspecified; K21.9 Gastro-esophageal reflux disease without esophagitis; Z87.442 Personal history of urinary calculi; F32.9 Major depressive disorder, single episode, unspecified; Z87.891 Personal history of nicotine dependence; W19.XXXA Unspecified fall, initial encounter; Y92.9 Unspecified place or not applicable
CPT/HCPCS: 36415; 74176; 80048; 81003; 85025; 85610; 99282; A9270-GY

== ENCOUNTER 2016-05-22 21:13 | Inpatient (IN) | payer OTHER, MEDICARE ==
[2016-05-22 21:47] LABS: Hematocrit 21 % (42-52); Hemoglobin 6.7 g/dl (14.0-18.0); Mean Corpuscular HGB Conc 32 g/dl (31-36); Mean Corpuscular Hemoglobin 25 pg (27-31); Mean Corpuscular Volume 78 fL (80-94); Mean Platelet Volume 9 um3 (7.4-10.4); Red Blood Count 2.69 10^6/ul (4.0-5.4)
--- NOTE | 2016-05-22 21:50 | RAD ---
INDICATION: Weakness COMPARISON: Chest x-ray January 27, 2016 TECHNIQUE: An AP portable view obtained at 2135 hours is submitted. FINDINGS: Bones/Soft Tissues: There are no acute bony findings. There is sternotomy Cardiomediastinal: The cardiomediastinal silhouette is unchanged. The heart has a left ventricular configuration. Lungs: There are no infiltrates. There are mild chronic interstitial changes Pleura: There are no pleural effusions. Other: None IMPRESSION: NO ACTIVE DISEASE.
[2016-05-22 22:00] LABS: Albumin 3.5 g/dL (3.2-5.2); BUN/Creatinine Ratio 16.1 (8-20); Calcium 8.7 mg/dL (8.6-10.3); EGFR African American 101.1 (>60); EGFR Non-African American 78.6 (>60); Globulin 3.3 g/dL (2-4); Potassium 4.1 mmol/L (3.5-5.0); Total Bilirubin 0.4 mg/dL (0.2-1.0); Total Protein 6.8 g/dL (6.4-8.9)
--- NOTE | 2016-05-22 22:05 | ED ---
Yudelka Powers Anna, scribed for Armaan Rubi MD on 05/22/16 at 2125 . Neurological HPI - HPI Summary HPI Summary: Patient is a 76 y/o male coming to [facility] presenting with visual changes in his left eye that began at 1800 this evening. His thought he was confused beginning at 1430, and then he began to lose vision in his left eye. En route, his BP was 110/60 and his sugar was 118. His O2 Sat was in the upper 90s on RA. He denies HERNÁNDEZ or other pain. He had a transfusion yesterday, which he reports was at [facility]. Per EMS, the patients left side is nonfunctional at baseline. He has a history of CVA. - History of Current Complaint Stated Complaint: POSS STROKE Hx Obtained From: Patient, EMS Onset/Duration: Started hours ago, Still Present Timing: Constant Pain Intensity: 0 Pain Scale Used: 0-10 Numeric - Additional Pertinent History Primary Care Physician: SARAH - Allergy/Home Medications Allergies/Adverse Reactions: Allergies Allergy/AdvReac Type Severity Reaction Status Date / Time Shellfish Allergy Allergy Severe Airway Verified 05/22/16 21:21 Obstruction Lactose Intolerance (GI) Allergy GI Upset Verified 05/22/16 21:21 walnuts Allergy Intermediate Airway Uncoded 05/22/16 21:21 Obstruction Home Medications: Home Medications Cyanocobalamin TAB* [Vitamin B12 TAB*] 1,000 mcg PO DAILY 05/22/16 [History Confirmed 05/23/16] Travoprost Z 0.004% OPHTH (NF) [Travatan Z 0.004% OPTH (NF)] 1 drop BOTH EYES BEDTIME 05/22/16 [History Confirmed 05/23/16] PMH/Surg Hx/FS Hx/Imm Hx Endocrine/Hematology History: Reports: Hx Anticoagulant Therapy, Hx Bone Marrow Disease - myelodysplastic syndrome Denies: Hx Diabetes Cardiovascular History: Reports: Hx Angina, Hx Coronary Artery Disease, Hx Hypercholesterolemia, Hx Hypertension - ON MEDS, Hx Syncope, Other Cardiovascular Problems/Disorders - LBBB Denies: Hx Congestive Heart Failure, Hx Pacemaker/ICD Respiratory History: Reports: Hx Sleep Apnea - pt states this may be new to him , unsure. Denies: Hx Asthma, Hx Chronic Obstructive Pulmonary Disease (COPD) GI History: Reports: Hx Gastroesophageal Reflux Disease, Other GI Disorders - GERD History: Reports: Hx Benign Prostatic Hyperplasia, Hx Kidney Stones, Hx Renal Disease - KIDNEY STONES, Other Problems/Disorders - KIDNEY STONES,BPH Denies: Hx Dialysis Musculoskeletal History: Reports: Hx Back Problems, Other Musculoskeletal History - Lumbar spinal stenosis Sensory History: Reports: Hx Contacts or Glasses Denies: Hx Hearing Aid Opthamlomology History: Reports: Hx Contacts or Glasses Neurological History: Reports: Other Neuro Impairments/Disorders - lumbar stenosis Psychiatric History: Reports: Hx Depression Denies: Hx Panic Disorder - Cancer History Cancer Type, Location and Year: prostate - SURGERY Hx Chemotherapy: No Hx Radiation Therapy: No Hx Palliative Cancer Treatment: No - Surgical History Surgery Procedure, Year, and Place: CABG,CATARACT REMOVAL,PROSTATECTOMY,kidney stones,spinal stenosis. QUADRUPAL BYPASS-TONSILS Infectious Disease History: Reports: Hx Shingles - HX of - Family History Known Family History: Positive: Cardiac Disease - Social History Occupation: Retired Lives: At [facility] Alcohol Use: Rare Alcohol Amount: 1 drink per week Substance Use Type: Reports: None Smoking Status (MU): Former Smoker Type: Cigarettes Have You Smoked in the Last Year: No Review of Systems Eyes: Other - Visual changes Neurological: Other - Confusion Positive: Weakness - baseline. Negative: Headache All Other Systems Reviewed And Are Negative: Yes Physical Exam Triage Information Reviewed: Yes Vital Signs On Initial Exam: Temp Pulse Resp BP Pulse Ox 98.7 F 74 18 107/62 99 05/22/16 21:22 05/22/16 21:22 05/22/16 21:22 05/22/16 21:22 05/22/16 21:22 Vital Signs Reviewed: Yes Appearance: Positive: No Pain Distress, Ill-Appearing Skin: Positive: Warm Head/Face: Positive: Normal Head/Face Inspection Eyes: Positive: TERI ENT: Positive: Hearing grossly normal Neck: Positive: Supple Respiratory/Lung Sounds: Positive: Breath Sounds Present Cardiovascular: Positive: RRR Abdomen Description: Positive: Nontender, Soft Neurological: Positive: Other - lt sided weakness, temporal visual field loss Psychiatric: Positive: Affect/Mood Appropriate Diagnostics - Vital Signs Vital Signs Temp Pulse Resp BP Pulse Ox 05/22/16 21:22 98.7 F 74 18 107/62 99 - Laboratory Lab Results: Lab Results 05/22/16 05/22/16 05/22/16 Range/Units 21:27 21:27 21:27 INR (Anticoag Therapy) 1.65 H (0.89-1.11) APTT 29.6 (26.0-36.3) seconds Sodium 133 (133-145) mmol/L Potassium 4.1 (3.5-5.0) mmol/L Chloride 102 (101-111) mmol/L Carbon Dioxide 29 (22-32) mmol/L Anion Gap 2 (2-11) mmol/L BUN 15 (6-24) mg/dL Creatinine 0.93 (0.67-1.17) mg/dL Est GFR ( Amer) 101.1 (>60) Est GFR (Non-Af Amer) 78.6 (>60) BUN/Creatinine Ratio 16.1 (8-20) Glucose 107 H (70-100) mg/dL Lactic Acid 0.6 (0.5-2.0) mmol/L Calcium 8.7 (8.6-10.3) mg/dL Total Bilirubin 0.40 (0.2-1.0) mg/dL AST 20 (13-39) U/L ALT 11 (7-52) U/L Alkaline Phosphatase 81 (34-104) U/L Troponin I Pending Total Protein 6.8 (6.4-8.9) g/dL Albumin 3.5 (3.2-5.2) g/dL Globulin 3.3 (2-4) g/dL Albumin/Globulin Ratio 1.1 (1-3) Triglycerides 69 mg/dL Cholesterol 87 mg/dL LDL Cholesterol 52 mg/dL HDL Cholesterol 21.0 mg/dL Result Diagrams: 05/22/16 21:27 05/23/16 02:52 Lab Statement: Any lab studies that have been ordered have been reviewed, and results considered in the medical decision making process. - Radiology CXR Xray Interpretation: No Acute Changes Radiology Interpretation Completed By: Radiologist - IMPRESSION: No active disease - CT Brain CT CT Interpretation: Positive (See Comments) CT Interpretation Completed By: Radiologist - EKG 2127 Cardiac Rate: NL - [address] Segment: Normal EKG Interpretation: incomplete LBBB NIH Scale - NIH Scale Level of Consciousness: Alert/Keenly Responsive Ask Patient the Month and His/Her Age: Both Correct Ask Pt to Open/Close Eyes and Bookkeeper/Release Non-Paretic Hand: Both Correctly Best Gaze (Only Horizontal Eye Movement): Normal Visual Field Testing: Partial Hemianopia Facial Paresis-Pt to Smile & Close Eyes or Grimace Symmetry: Normal/Symmetrical Motor Function - Right Arm: No Drift-Holds 10 Seconds Motor Function - Left Arm: Drifts LT 10 seconds Motor Function - Right Leg: No Drift-Holds 10 Seconds Motor Function - Left Leg: Drifts LT 10 seconds Limb Ataxia-Must be out of Proportion to Weakness Present: Absent Sensory (Use Pinprick to Test Arms/Legs/Trunk/Face): Normal Best Language (Describe Picture, Name Items): No Aphasia Dysarthria (Read Several Words): Normal Extinction and Inattention: No Abnormality Total Score: 3 Re-Evaluation - Re-Evaluation First Eval Re-Evaluation Time: 22:15 Comment: Discussed results and plan of care with patient. Patient is agreeable with plan. Course/Dx - Course Assessment/Plan: Patient is a 76 y/o male coming to [facility] presenting with visual changes in his left eye that began at 1800 this evening. His thought he was confused beginning at 1430, and then he began to lose vision in his left eye. En route, his BP was 110/60 and his sugar was 118. His O2 Sat was in the upper 90s on RA. He denies HERNÁNDEZ or other pain. He had a transfusion yesterday, which he reports was at [facility]. Per EMS, the patient s left side is nonfunctional at baseline. He has a history of CVA. CXR reveals no active disease. EKG reveals SR at 74 bpm with incomplete LBBB. Labs reveal an INR of 1.65, troponin of 0.17, WBC 3.4, RBC 2.69, Hgb 6.7, Hct 21, MCV 78, MCH 25, RDW 25, and Plt count 59. Brain CT reveals sequela of vascular ischemia. Subacute right occipital infarct new since January 2016. Underlying chronic microvascular ischemic changes. Discussed care of patient with Dr. Tee (hospitalist) at 0. Agrees to accept patient for admission. Dr. Del Angel (neurologist) at 2230. Informed and will consult in AM. - Diagnoses Provider Diagnoses: ACS (acute coronary syndrome), TIA (transient ischemic attack) - Physician Notifications Discussed Care of Patient With: Dr. eTe (hospitalist) at 0. Agrees to accept patient for admission. Dr. Del Angel (neurologist) at 2230. Informed and will consult in AM. Instructed by Provider To: Admit As Inpatient - Critical Care Time Critical Care Time: 30-74 min Discharge - Discharge Plan Condition: Fair Disposition: ADMITTED TO [facility] documentation as recorded by the Yudelka nieves Anna accurately reflects the service I personally performed and the decisions made by me, Armaan Rubi MD.
[2016-05-22 22:07] LABS: Troponin I 0.17 ng/mL (<0.04)
--- NOTE | 2016-05-22 22:09 | RAD ---
INDICATION: Change in mental status. History of multiple CVAs. Weakness and fever. Left visual field difficulty COMPARISON: CT brain January 27, 2016 TECHNIQUE: Noncontrast axial source images were acquired from the skull base to the vertex. FINDINGS: Ventricles/sulci: There is cortical atrophy with compensatory dilatation of the CSF spaces. Brain parenchyma: There is a subacute right occipital and parietal infarct with developing encephalomalacia. Although representing a remote infarct, this is new relative to the 2016 exam. There is stable periventricular and subcortical white matter change compatible with chronic ischemia. Intracranial hemorrhage:None. Extra-axial spaces: There are no abnormal extra axial fluid collections or evidence of extra-axial mass. Calvarium: There is no calvarial fracture or other calvarial abnormality. Scalp: There is no evidence of scalp or extracalvarial soft tissue abnormality. Paranasal sinuses/mastoid: The paranasal sinuses and mastoid air cells are clear. Other: None. IMPRESSION: Sequela of vascular ischemia. Subacute right occipital infarct new since January 2016. Underlying chronic microvascular ischemic changes.
[2016-05-22 22:14] LABS: Comments Flag Yes
[2016-05-22 22:15] LABS: Add Diff/Slide Review? Manual Diff Added; Red Cell Distribution Width 25 % (10.5-15); White Blood Count 3.4 10^3/ul (3.5-10.8)
[2016-05-22 22:36] LABS: Eosinophils % 1 % (0-6); Neutrophil % 45 % (38-83)
[2016-05-22 22:37] LABS: Hypochromasia 1+; Microcytosis 1+; Polychromasia 1+
[2016-05-22 22:38] LABS: Add Path Review? YES
[2016-05-22] MEDS ORDERED: Al Hydrox/Mg Hydrox/Simet LIQ* 30 ML UDC PO PRN (23:27)
[2016-05-22] MEDS ORDERED: Ondansetron INJ* 2 MG/ML VIAL IV PRN (23:27)
[2016-05-22] MEDS ORDERED: Magnesium Hydroxide LIQ* 30 ML UDC PO PRN (23:27)
[2016-05-22] MEDS ORDERED: NS 0.9% 1000 ML* 1,000 ML IV SCH (23:45)
[2016-05-23] MEDS: Latanoprost 0.005%* 2.5 ml BTL BOTH EYES SCH ×2 (02:37→22:07)
[2016-05-23 03:23] LABS: BUN/Creatinine Ratio 14.3 (8-20); Calcium 8.7 mg/dL (8.6-10.3); EGFR African American 103.6 (>60); EGFR Non-African American 80.6 (>60); HDL Cholesterol 22.4 mg/dL; Potassium 4.3 mmol/L (3.5-5.0)
[2016-05-23 04:12] LABS: Troponin I 0.13 ng/mL (<0.04)
[2016-05-23 06:09] LABS: Hematocrit 22 % (42-52); Mean Corpuscular HGB Conc 32 g/dl (31-36); Mean Corpuscular Hemoglobin 25 pg (27-31); Mean Corpuscular Volume 79 fL (80-94); Red Blood Count 2.76 10^6/ul (4.0-5.4)
[2016-05-23 06:22] LABS: Comments Flag Yes
[2016-05-23 06:23] LABS: White Blood Count 2.9 10^3/ul (3.5-10.8)
[2016-05-23 06:24] LABS: Hemoglobin 6.9 g/dl (14.0-18.0); Red Cell Distribution Width 25 % (10.5-15)
[2016-05-23 06:25] LABS: Add Diff/Slide Review? Slide Review Added
--- NOTE | 2016-05-23 06:28 | HP ---
HISTORY AND PHYSICAL: DATE OF ADMISSION: 05/22/16 TIME OF EVALUATION: 2330 hours. PRIMARY CARE PHYSICIAN: Mattie Drew MD NEUROLOGIST: Kayleigh Fernandes MD ONCOLOGIST: Benny Vallecillo MD CHIEF COMPLAINT: Altered mental status. HISTORY OF PRESENT ILLNESS: This is a 76-year-old male with a past medical history of myelodysplastic syndrome followed by Dr. Vallecillo, history of multiple strokes with left-sided hemiparesis and cognitive impairment who presents to the emergency room from [facility] with altered mental status. The who is at the bedside provides the history, states that around 2 o'clock today, she noted that he seemed to be more altered with his mentation. He had a low-grade temp. They thought he was having an allergic reaction to his TRANSFUSION. He was TRANSFUSED yesterday for his myelodysplastic syndrome. She was told he had a hemoglobin of 4.8 on the and the patient was given Benadryl. He had some nausea as well and then later on, at dinnertime, the noted that he was having left-sided hemineglect. She had e- mailed her primary who called him, recommended she go to the emergency room for further evaluation. The patient's baseline is from his multiple strokes, his left- sided hemiparesis. He has some mild cognitive impairment. He is not good at describing symptoms accurately. He is a poor historian. He has never complained of pain. No chest pain throughout this entire time. No headache, but as mentioned, the patient is not a good historian from his history of multiple strokes. In the emergency room, the patient had labs, imaging. He was found to have a subacute infarct on his head CT. Neurology was called. They recommended admission for further evaluation but no further treatment at this time as the patient is not a candidate for t-PN as he is outside of the window and he is also on Coumadin. Review of systems is limited due to the patient's cognitive impairment and altered mental status. The patient was referred to the hospitalist service for further evaluation. PAST MEDICAL HISTORY: 1. Myelodysplastic syndrome. The patient with TRANSFUSION on 05/21/16, followed by Dr. Vallecillo. 2. History of multiple CVAs, followed by Dr. Fernandes. He has residual left- sided hemiparesis with cognitive impairment. 3. Hypertension. 4. Spinal stenosis. 5. Glaucoma. 6. Coronary artery disease, status post coronary artery bypass graft in 2003. 7. GERD. 8. Gout. 9. Obstructive sleep apnea, on BiPAP. 10. Constipation. 11. Vitamin D deficiency. 12. Depression. 13. Hyperlipidemia. MEDICATIONS: 1. Warfarin 2 mg p.o. Tuesday and Tuesday and 4 mg on Tuesday, Tuesday, Tuesday , , and Tuesday. 2. Spironolactone 12.5 mg daily. 3. Vitamin B12 1000 mcg daily. 4. Carvedilol 12.5 mg half a tab p.o. twice daily. 5. Loratadine 10 mg p.o. daily. 6. Senna 1 tab daily. 7. Travatan drops 0.004% one drop to both eyes at bedtime. 8. Colace 100 mg 2 caps p.o. daily. 9. Lisinopril 2.5 mg daily. 10. MiraLAX 1 packet daily. 11. Sertraline 150 mg daily. 12. Aspirin 81 mg daily. 13. Atorvastatin 10 mg daily. 14. Omeprazole 20 mg daily. 15. Vitamin D3 1 tab daily. 16. Enema as needed. 17. Dulcolax rectally as needed. 18. Milk of mag as needed. 19. Zofran as needed. 20. Tylenol 325 mg 2 tabs every 4 hours as needed. ALLERGIES: To SHELLFISH and LACTOSE. FAMILY HISTORY: His mother from old age, thought to be secondary to cancer. Father at age 67 from an [place]. SOCIAL HISTORY: The patient resides at [facility]. His health care proxy is his , Angeles Patel. He is a remote smoker, short-term, 30 to 40 years ago. Occasional alcohol use. 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 His code status was reviewed, he is a full code. REVIEW OF SYSTEMS: Limited due to the patient's altered mental status and cognitive impairment. PHYSICAL EXAMINATION GENERAL: The patient is sleeping, but awakes easily. VITAL SIGNS: Temp 98.7, pulse rate 74, respiratory rate 18, oxygen saturation 99% on room, blood pressure 107/62. HEENT: Pupils are pinpoint and reactive, anicteric. Head normocephalic. NECK: Supple. No lymphadenopathy. RESPIRATORY: Diminished breath sounds. No wheezing, rhonchi, or rales. CARDIAC: Regular rate and rhythm. Harsh systolic murmur, more prominent at the right sternal base radiating to carotids. ABDOMEN: Soft, nontender, and nondistended. EXTREMITIES: No clubbing, cyanosis, or edema. NEUROLOGIC: The patient is alert and oriented x1, oriented to self only. The patient is with left-sided hemiparesis with 1/5 movement on the left upper extremity, 0/5 movement on the left lower extremity. He has left facial droop that per is unchanged. Unable to assess for hemineglect due to the patient 's frequent falling asleep and limited ability to cooperate during the exam. LABORATORY DATA: White count 3.4, hemoglobin 6.7, hematocrit 21, and platelets 59. INR 1.65. Sodium 133, potassium 4.1, chloride 102, bicarb 29, BUN 15, creatinine 0.93, and glucose 107. Troponin 0.17. LDL is 52. RADIOGRAPHIC DATA: Head CT showed sequelae of vascular ischemia, subacute right occipital infarct, new since January 2016, underlying chronic microvascular ischemic changes. Chest x-ray, no active disease. EKG shows normal sinus rhythm with first- degree AV block and history of left bundle on prior EKGs. ASSESSMENT AND PLAN: This is a 76-year-old male with a past medical history of myelodysplastic syndrome, multiple cerebrovascular accidents with left hemiparesis, and coronary artery disease who presents to the emergency room from [facility] with left-sided hemineglect, found to have a subacute right occipital infarct on head CT. 1. Subacute right occipital infarct: Assessment: The patient's physical exam is limited due to frequently falling sleep and already with neurologic deficits and impaired cognitive function. Neurology was consulted and they did not recommend any further intervention at this time. Plan: We will admit him to telemetry. He did not pass his bedside swallow. We will order Speech Therapy evaluation and hold all his p.o. agents at this time. He already received his warfarin and aspirin today. We will repeat his labs and follow up with Neurology. We will also consult PT and OT. 2. Elevated troponin: Assessment: I suspect demand ischemia in the setting of hypoperfusion from his significant anemia that he had from his myelodysplastic syndrome with a hemoglobin of 4.9, which could also explain his cerebral infarction as well. Plan: We will trend his troponin and keep him on telemetry and check an echocardiogram as well. 3. Chronic medical problems: As mentioned, the patient did not pass his swallow. We will hold his p.o. agents. We will place him on IV fluids for now. Continue his eye drops for his glaucoma and have Speech Therapy to reevaluate at bedside evaluation in the morning. 4. FEN: The patient is n.p.o. as he did not pass his swallow. Place him on IV fluids 100 cc an hour. 5. DVT prophylaxis: The patient's score is high risk. We will place him on SCDs in the setting of being on Coumadin and with significant anemia and his myelodysplastic syndrome. 6. Code status: The patient is a full code. The patient has multiple comorbidities and now another stroke in addition to his prior strokes. I recommended followup with his primary regarding advanced care planning, goals of care. PATIENT TIME: Greater than 50 minutes was spent doing the history and physical , more than half the time was spent in direct patient contact. CC: Mattie Drew MD* [id number]/CPS #: [id number] DIEGO
--- NOTE | 2016-05-23 09:13 | CONSULT ---
Consult Consult: 05/23/16 neurology consult 76 year old RH man with myelodysplastic syndrome, ? afib (per some EMR codes; has been on Coumadin since 2014; INR was 1.65 on admission, was 2.5 on 05/13 prior check), HTN, HL, depression, cad/cabg, mary on cpap, prior history of multiple strokes in past 4-5 years (imaging summarized below; has baseline left sided weakness (uses walker and wheelchair) and numbness and some cognitive impairment; has been followed by dr linares; consults from other neurologists in local practice from 2013- reviewed as well; apparently also saw dr markus Wooten from [facility] stroke service in past), now presenting with confusion and a left visual field defect noted 2 days ago. He is not certain how this recent issue was discovered, but suggests I talk to his , and that they did some experiments eg finger counting. Per discussion last night with the ED attending , apparently when his coffee was placed in front of him to the left, he did not see it, and instead asked re when he would get his coffee. Allergies/Meds - per apr PMH - as above, plus: glaucoma, spinal stenosis s/p lumbar surg, gerd, gout, prostate cancer FH - F NH, M ? 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; now in [facility]; per admission he is FC and is proxy ROS - 10 point review negative save per HPI general Examination: no apparent distress, no edema, male of stated age; VS per EMR Neurologic Examination Mental Status: alert; oriented to name; cognition not formally tested; affect reactive, no clear neglect, fluent speech Cranial Nerves: Funduscopy deferred, otherwise III-XII notable for left facial droop and left homonymous hemianopsia Motor: spastic left hemiparesis, mostly in 2-3 range Sensory: vibration and touch are slightly diminished on the left comparatively Reflexes: 2 right vs 2+ to 3 left. Plantar responses are equivocal Coordination: finger to nose is weakness limited on left Gait: deferred Serologies: - Hct 22, plt 53K, WBC 2.9, trop 0.17; his lipids, chem and LFTs are all normal or negative - Priors: esr neg 2015 vs crp inc; drvvt c/w Coumadin effect; LDH, uric acid, PSA, TSH, vit D and B12, cpk, BRIAN, anti cardiolipin Ab were all neg in past Imaging: - Head CT reviewed and has evolved new/interval bland right occipital stroke, old L frontal stroke (interval b/w 04/29 CT and 08/29 MRI, which had subacute L EC stroke; prior 2013- MRIs had acute L amado, R medulla, R amado, R caudate strokes) and mod confluent microvascular dz - 01/28 CTA read as L M2 stenosis (prior 08/28 and 2013 neg) - 01/29 CT cervical spine neg - 01/28 lumbar mri post op changes, djd, no stenosis - 08/28 LATOSHA had EF 30-35%, atrial septal aneurysm without PFO or thrombus (c/w essentially nl 10/28 TTE) - Cxr neg; 04/02 Ct abd and pelvis mult minor findings; 04/28 stress neg Phys: 08/29 EEG had mild diffuse encephalopathy (10/26 prior study was normal) Impression: 76 year old MDS, ? afib, multiple prior bihemispheric cortical and subcortical strokes (mult risk factors, incl reduced EF, ? arrhythmia, MARY, HTN) with baseline spastic left hemiparesis, now presenting with recurrent (right [employer]) stroke, while on coumadin with subtherapeutic INR. He has had multiple prior sets of vascular imaging studies, without clear large vessel vasculopathy. Given his stroke recurrence, he should be switched to a NOAC for further stroke prevention; he has multiple hematologic abnormalities being followed given his MDS. I will update the [facility] practice re his hospitalization.
[2016-05-23] MEDS ORDERED: Enoxaparin(*) 60 MG/0.6 ML SYR SUBCUT SCH (12:00)
[2016-05-23] MEDS: Enoxaparin(*) 80 MG/0.8 ML SYR SUBCUT SCH (13:56)
--- NOTE | 2016-05-23 14:00 | PN ---
Subjective Date of Service: 05/23/16 Interval History: pt is a poor historian, forgetful, but pleasant and cooperative. Objective Active Medications: Al Hydrox/Mg Hydrox/Simethicone (Maalox Plus*) 30 ml PO Q6H PRN PRN Reason: INDIGESTION Enoxaparin Sodium (Lovenox(*)) 70 mg SUBCUT Q12H [facility] Latanoprost (Xalatan 0.005%*) 1 drop BOTH EYES BEDTIME [facility] PRN Reason: Protocol Last Admin: 05/23/16 02:37 Dose: 1 drop Magnesium Hydroxide (Milk Of Magnlois Liq*) 30 ml PO Q4H PRN PRN Reason: CONSTIPATION Ondansetron HCl (Zofran Inj*) 4 mg IV Q4H PRN PRN Reason: NAUSEA/VOMITING Vital Signs 05/22/16 05/23/16 05/23/16 23:52 00:00 00:01 Temperature 97.8 F Pulse Rate 74 79 77 Respiratory 18 18 16 Rate Blood Pressure 133/46 108/49 (mmHg) O2 Sat by Pulse 100 92 92 Oximetry 05/23/16 05/23/16 05/23/16 03:14 07:27 07:36 Temperature 99.7 F 97.8 F Pulse Rate 88 87 Respiratory 24 14 22 Rate Blood Pressure 121/45 129/57 (mmHg) O2 Sat by Pulse 100 100 Oximetry 05/23/16 11:19 Temperature 98.9 F Pulse Rate 74 Respiratory 18 Rate Blood Pressure 123/56 (mmHg) O2 Sat by Pulse 98 Oximetry Oxygen Devices in Use Now: None Appearance: 76 yo M in NAd, aAOx3, poor historian Eyes: No Scleral Icterus, PERRLA Ears/Nose/Mouth/Throat: NL Teeth, Lips, Gums, Mucous Membranes Moist Neck: NL Appearance and Movements; NL JVP, Trachea Midline Respiratory: Symmetrical Chest Expansion and Respiratory Effort, Clear to Auscultation Cardiovascular: NL Sounds; No Murmurs; No JVD, RRR Abdominal: NL Sounds; No Tenderness; No Distention Lymphatic: No Cervical Adenopathy Extremities: No Edema, No Clubbing, Cyanosis Skin: No Rash or Ulcers, No Nodules or Sclerosis Neurological: Alert and Oriented x 3, - - left homonymus hemianopsia, left arm at 3/5, lef leg 3/5 Result Diagrams: 05/23/16 05:43 04/09/17 02:52 Additional Lab and Data: Lab Results 05/22/16 05/22/16 05/22/16 Range/Units 21:27 21:27 21:27 INR (Anticoag Therapy) 1.65 H (0.89-1.11) APTT 29.6 (26.0-36.3) seconds Sodium 133 (133-145) mmol/L Potassium 4.1 (3.5-5.0) mmol/L Chloride 102 (101-111) mmol/L Carbon Dioxide 29 (22-32) mmol/L Anion Gap 2 (2-11) mmol/L BUN 15 (6-24) mg/dL Creatinine 0.93 (0.67-1.17) mg/dL Est GFR ( Amer) 101.1 (>60) Est GFR (Non-Af Amer) 78.6 (>60) BUN/Creatinine Ratio 16.1 (8-20) Glucose 107 H (70-100) mg/dL Lactic Acid 0.6 (0.5-2.0) mmol/L Calcium 8.7 (8.6-10.3) mg/dL Total Bilirubin 0.40 (0.2-1.0) mg/dL AST 20 (13-39) U/L ALT 11 (7-52) U/L Alkaline Phosphatase 81 (34-104) U/L Troponin I Pending Total Protein 6.8 (6.4-8.9) g/dL Albumin 3.5 (3.2-5.2) g/dL Globulin 3.3 (2-4) g/dL Albumin/Globulin Ratio 1.1 (1-3) Triglycerides 69 mg/dL Cholesterol 87 mg/dL LDL Cholesterol 52 mg/dL HDL Cholesterol 21.0 mg/dL Assess/Plan/Problems-Billing Assessment: 76 yo M with h/o recurrent ischemic CVA's (on ASA and Coumadin), cardiomyopathy (Ef 45% in 05/2015), MDS (recent transfusions), LBBB, , HTN, prostate ca, presented with worsening memory and left neglect -found to have subacute R occipital CVA on CT. - Patient Problems (1) CVA (cerebral infarction) Comment: cont of chronic left sided weakness , now with left homonymus hemianopsia. appreciate neurology consult. NOAC recommended. Pt is reluctant to take new anticoagulant without d/w Dr. Fernandes. Spoke also with hematology (Dr. Umanzor ). Pt will be seen by their service in AM. For now Lovenox tx was recommended. Pt has severe chronic anemia and thrombocytopenia and risk of bleeding is considerable. MRI brain ordered for AM Cont ASA/Lovenox for now. It is also plausible that secondary to his anemia pt was in a low perfusion state and suffered from another CVA due to that. (2) Coronary artery disease Status: Chronic Comment: Stable. Trop >0.1 , but no c/o CP. EKG is at LBBB- baseline. Susepct demand iscehmia. Cont aspirin, and statin. Echo pending (3) Myelodysplastic disease Comment: s/p transfusion on 05/21/16. Hb now low, but stable. also severe thrombocytopenia- with worsening. (4) Hypertension Comment: Well-controlled. holding BP meds due to recent CVA (5) Depression Comment: Continue zoloft. (6) Dyslipidemia Comment: LDL 54 -cont statin (7) DVT prophylaxis Comment: lovenox
[2016-05-23] MEDS ORDERED: Senna TAB PO PRN (14:22)
[2016-05-23] MEDS ORDERED: Docusate CAP* 100 MG PO PRN (14:22)
--- NOTE | 2016-05-23 14:36 | ECHO ---
Patient: REYNALDO FREEMAN [facility] Rec#: [id number] : 1940 Date: 05/23/2016 Age: 76y Height: 167.6 cm / 66.0 in Weight: 78.5 kg / 173.0 lbs Sex: M BSA: 1.9 Room#: 434 Admit Date#: 05/22/2016 Type: Inpatient Referring: Cheryl Tee Reading: Fabian Calles MD Detective [employer]: Aura Curtis RN RDCS CC: Mattie Drew MD Transthoracic Echocardiogram Indication: CVA, elevated troponin levels BP: 121/45 HR: 82 Rhythm: NSR with PVCs Findings History: CAD, CABG, CVAs, aortic stenosis, HTN, HLD, MARY on BiPAP, myelodysplastic syndrome, anemia Technical Comments: The study quality is fair. Completed at 1415. Left Ventricle: The left ventricular chamber size is normal. Mild to moderate concentric left ventricular hypertrophy is observed. There is global hypokinesis of the left ventricle with minor regional variation. There is mild to moderately decreased left ventricular systolic function. The estimated ejection fraction is 40-45%. Ventricular septal wall motion has a post-operative appearance. There is no consistent Doppler evidence of clinically significant diastolic dysfunction. Left Atrium: The left atrial chamber size is normal. Right Ventricle: The right ventricular cavity size is normal. The right ventricular global systolic function is low normal. Right Atrium: The right atrium is mildly dilated. There is evidence of an atrial septal aneurysm. Aortic Valve: The aortic valve is trileaflet. The aortic valve leaflets are moderately thickened. Systolic excursion of the non coronary cusp is reduced. There is trace to mild aortic regurgitation. There is mild aortic stenosis. The mean gradient of the aortic valve is 13 mmHg. The peak instantaneous gradient of the aortic valve is 21 mmHg. The aortic valve area, by peak velocities, is calculated at 1.6 cm2. The aortic valve area, by VTI's, is calculated at 1.6 cm2. Highest aortic valve velocity was acquired with Pedoff in apical position. Mitral Valve: The mitral valve leaflets are mildly thickened. There is trace to mild mitral regurgitation. Tricuspid Valve: The tricuspid valve leaflets are normal. There is trace to mild tricuspid regurgitation. There is evidence of mild pulmonary hypertension. There is no tricuspid stenosis. Pulmonic Valve: The pulmonic valve appears normal. There is a trace pulmonic regurgitation. There is no pulmonic stenosis. Pericardium: There is no significant pericardial effusion. A pericardial fat pad is visualized. Aorta: There is mild dilatation of the ascending aorta. There is no dilatation of the aortic arch. The aortic root is normal in size. Pulmonary Artery: The main pulmonary artery is not well visualized. Venous: The inferior vena cava appears normal in size. There is an approximate 50% respiratory change in the inferior vena cava dimension. Conclusions There is mild to moderately decreased left ventricular systolic function. The estimated ejection fraction is 40-45%. There is global hypokinesis of the left ventricle with minor regional variation. The left ventricular chamber size is normal. Mild to moderate concentric left ventricular hypertrophy is observed. The right atrium is mildly dilated. There is mild aortic stenosis. There is evidence of mild pulmonary hypertension. There is mild dilatation of the ascending aorta. Since the prior echocardiogram completed 06/13/15, pertinent change is prior pulmonary hypertension not noted. Measurements Name Value Normal Range RVDdMajor (2D) 3.6 cm (2.2 - 4.4) RAd ISD 4CH 5.2 cm (3.4 - 4.9) RA (A4C)W 4.6 cm (2.9 - 4.6) IVSd (2D) 1.5 cm (0.6 - 1) LVPWd (2D) 0.9 cm (0.6 - 1) LVIDd (2D) 4.6 cm (3.6 - 5.4) LVIDs (2D) 3.6 cm - LV FS (2D) 22 % (25 - 45) Aortic Annulus 2.1 cm (1.4 - 2.6) Ao root diameter (2D) 3.2 cm (2.1 - 3.5) Ascending Ao 3.6 cm (2.1 - 3.4) Aortic arch 2.4 cm (1.8 - 3.4) LA dimension (AP) 2D 3.9 cm (2.3 - 3.8) LAd ISD 4CH 5.1 cm (2.9 - 5.3) LA ISD 4CH W 4.3 cm (2.5 - 4.5) Name Value Normal Range LA ESV SP 4CH (A/L) 48 ml - LA ESV SP 2CH (A/L) 51 ml - LA ESV BP (A/L) 51 ml - LA ESV BP (A/L) index 27 ml/m2 - LA ESV SP 4CH (MOD) 46 ml - LA ESV SP 2CH (MOD) 47 ml - Name Value Normal Range MV E-wave Vmax 0.91 m/sec - MV deceleration time 199 msec - MV A-wave Vmax 1 m/sec - MV E:A ratio 0.91 ratio - LV septal e' Vmax 0.06 m/sec - LV lateral e' Vmax 0.08 m/sec - LV E:e' septal ratio 15.2 ratio - LV E:e' lateral ratio 11.4 ratio - Name Value Normal Range AV Vmax 2.3 m/sec - AV VTI 47.9 cm - AV peak gradient 21 mmHg - AV mean gradient 13 mmHg - LVOT diameter 2 cm - LVOT Vmax 1.2 m/sec - LVOT VTI 25.1 cm - LVOT peak gradient 6 mmHg - LVOT mean gradient 4 mmHg - DOI (VTI) 0.52 ratio - DOI (Vmax) 0.52 ratio - KAYLEE (continuity Vmax) 1.6 cm2 - KAYLEE (continuity VTI) 1.6 cm2 - DEYANIRA Vmax 0.59 m/sec - Name Value Normal Range TR Vmax 2.7 m/sec - TR peak gradient 29 mmHg - RAP 8 mmHg - RVSP 37 mmHg - IVC diameter 1.7 cm - Name Value Normal Range PV Vmax 0.9 m/sec -
[2016-05-23] MEDS: Sertraline* 50 MG TAB PO SCH (15:16)
[2016-05-24] MEDS: Enoxaparin(*) 80 MG/0.8 ML SYR SUBCUT SCH ×2 (01:40→12:17)
[2016-05-24 05:49] LABS: Hematocrit 22 % (42-52); Mean Corpuscular HGB Conc 32 g/dl (31-36); Mean Corpuscular Hemoglobin 25 pg (27-31); Mean Corpuscular Volume 77 fL (80-94); Red Blood Count 2.85 10^6/ul (4.0-5.4)
[2016-05-24 05:57] LABS: Comments Flag Yes
[2016-05-24 05:58] LABS: Red Cell Distribution Width 26 % (10.5-15); White Blood Count 2.7 10^3/ul (3.5-10.8)
[2016-05-24 05:59] LABS: Add Diff/Slide Review? Slide Review Added
[2016-05-24 06:11] LABS: BUN/Creatinine Ratio 13.3 (8-20); Calcium 8.7 mg/dL (8.6-10.3); EGFR Non-African American 81.6 (>60); Potassium 3.8 mmol/L (3.5-5.0)
[2016-05-24 06:32] LABS: Macrocytosis 1+; Mean Platelet Volume 9 um3 (7.4-10.4); Microcytosis 1+
[2016-05-24 06:33] LABS: Add Path Review? YES; Basophilic Stippling 1+; Polychromasia 1+; Tear Drop Cells 1+
[2016-05-24 06:35] LABS: Hypochromasia 1+; Schistocytes 1+; Stomatocytes 1+
[2016-05-24] MEDS: Atorvastatin* 10 MG TAB PO SCH (08:56)
[2016-05-24] MEDS: Cyanocobalamin TAB* 500 MCG PO SCH (08:56)
[2016-05-24] MEDS: Aspirin EC Low Dose* 81 MG TAB.EC PO SCH (08:56)
[2016-05-24] MEDS: Omeprazole CAP* 20 MG PO SCH (08:56)
[2016-05-24] MEDS: Cholecalciferol TAB* 1000 UNITS PO SCH (08:56)
[2016-05-24] MEDS: Sertraline* 50 MG TAB PO SCH (08:57)
[2016-05-24] MEDS: Polyethylene Glycol 3350* 17 GM PACKET PO SCH (08:57)
[2016-05-24] MEDS ORDERED: Warfarin TAB(*) 2 MG PO PRN (09:25)
--- NOTE | 2016-05-24 09:32 | PN ---
Progress Note - Progress Note SOAP: Subjective: []CVA. He did not recognize stroke. Told he had it. Left arm weakness is residual. PMHx: MDS. Transfusion dependent, has been on Epogen. Al Hydrox/Mg Hydrox/Simethicone (Maalox Plus*) 30 ml PO Q6H PRN PRN Reason: INDIGESTION Aspirin (Aspirin Ec Low Dose*) 81 mg PO DAILY [facility] Last Admin: 05/24/16 08:56 Dose: 81 mg Atorvastatin Calcium (Lipitor*) 10 mg PO DAILY [facility] Last Admin: 05/24/16 08:56 Dose: 10 mg Cholecalciferol (Vitamin D Tab*) 1,000 units PO QAM [facility] Last Admin: 05/24/16 08:56 Dose: 1,000 units Cyanocobalamin (Vitamin B12 Tab*) 1,000 mcg PO DAILY [facility] Last Admin: 05/24/16 08:56 Dose: 1,000 mcg Docusate Sodium (Colace Cap*) 200 mg PO QAM PRN PRN Reason: CONSTIPATION Enoxaparin Sodium (Lovenox(*)) 70 mg SUBCUT Q12H [facility] Last Admin: 05/24/16 01:40 Dose: 70 mg Latanoprost (Xalatan 0.005%*) 1 drop BOTH EYES BEDTIME [facility] PRN Reason: Protocol Last Admin: 05/23/16 22:07 Dose: 1 drop Magnesium Hydroxide (Milk Of Magnlois Liq*) 30 ml PO Q4H PRN PRN Reason: CONSTIPATION Omeprazole (Prilosec Cap*) 20 mg PO DAILY [facility] Last Admin: 05/24/16 08:56 Dose: 20 mg Ondansetron HCl (Zofran Inj*) 4 mg IV Q4H PRN PRN Reason: NAUSEA/VOMITING Polyethylene Glycol/Electrolytes (Miralax*) 17 gm PO DAILY [facility] Last Admin: 05/24/16 08:57 Dose: 17 gm Senna (Senokot Tab*) 1 tab PO BEDTIME PRN PRN Reason: CONSTIPATION Sertraline HCl (Zoloft*) 150 mg PO DAILY [facility] Last Admin: 05/24/16 08:57 Dose: 150 mg Objective: [] Vital Signs Temp Pulse Resp BP Pulse Ox 98.7 F 94 20 121/53 96 05/24/16 05:01 05/24/16 03:17 05/24/16 03:17 05/24/16 03:17 05/24/16 03:17 HEENT: no facial droop. speach fluid. CTA Irregular, no mummer +BS Ext - +1 Assessment: []76 year old MDS, a-fib, on Coumadin, on Erythropoietin and now with stroke. Plan: []1. Continue Coumadin, INR goal of 2.5 2. Will stop Erythropoietin . Transfuse 1 U PRBC before discharge. 3. Check [facility] screen as cause of thrombophilia
--- NOTE | 2016-05-24 09:58 | PN ---
Subjective Date of Service: 05/24/16 Interval History: pt feels "unchanged". Poor historian. Keeps on saying that his physicians told him that "Eliquis is OK for him", but after talking with both Dr. Fernandes and Dr. Noland it was confirmed that that was not the recommendation. Spoke with pt's who stated that pt "got the Eliquis idea from TV". Objective Active Medications: Al Hydrox/Mg Hydrox/Simethicone (Maalox Plus*) 30 ml PO Q6H PRN PRN Reason: INDIGESTION Aspirin (Aspirin Ec Low Dose*) [address] [facility] Last Admin: 05/24/16 08:56 Dose: 81 mg Atorvastatin Calcium (Lipitor*) [address] [facility] Last Admin: 05/24/16 08:56 Dose: 10 mg Cholecalciferol (Vitamin D Tab*) 1,[address] [facility] Last Admin: 05/24/16 08:56 Dose: 1,000 units Cyanocobalamin (Vitamin B12 Tab*) 1,[address] [facility] Last Admin: 05/24/16 08:56 Dose: 1,000 mcg Docusate Sodium (Colace Cap*) 200 mg PO QAM PRN PRN Reason: CONSTIPATION Enoxaparin Sodium (Lovenox(*)) [address] [facility] Last Admin: 05/24/16 01:40 Dose: 70 mg Latanoprost (Xalatan 0.005%*) [address] [facility] PRN Reason: Protocol Last Admin: 05/23/16 22:07 Dose: 1 drop Magnesium Hydroxide (Milk Of Magnlois Liq*) 30 ml PO Q4H PRN PRN Reason: CONSTIPATION Omeprazole (Prilosec Cap*) [address] [facility] Last Admin: 05/24/16 08:56 Dose: 20 mg Ondansetron HCl (Zofran Inj*) 4 mg IV Q4H PRN PRN Reason: NAUSEA/VOMITING Polyethylene Glycol/Electrolytes (Miralax*) [address] [facility] Last Admin: 05/24/16 08:57 Dose: 17 gm Senna (Senokot Tab*) 1 tab PO BEDTIME PRN PRN Reason: CONSTIPATION Sertraline HCl (Zoloft*) [address] [facility] Last Admin: 05/24/16 08:57 Dose: 150 mg Warfarin Sodium (Coumadin Tab(*)) 4 mg PO DAILY PRN; Protocol PRN Reason: Vital Signs 05/23/16 05/23/16 05/23/16 11:19 15:17 19:45 Temperature 98.9 F 98.2 F 99.5 F Pulse Rate 74 82 93 Respiratory 18 22 20 Rate Blood Pressure 123/56 115/56 124/54 (mmHg) O2 Sat by Pulse 98 98 100 Oximetry 05/23/16 05/24/16 05/24/16 20:00 00:35 02:17 Temperature 100.8 F Pulse Rate 43 92 Respiratory 16 20 Rate Blood Pressure 119/51 (mmHg) O2 Sat by Pulse 100 95 Oximetry 05/24/16 05/24/16 03:17 05:01 Temperature 100.0 F 98.7 F Pulse Rate 94 Respiratory 20 Rate Blood Pressure 121/53 (mmHg) O2 Sat by Pulse 96 Oximetry Oxygen Devices in Use Now: None Appearance: 76 yo M in NAd, AAOx3, poor historian. Eyes: No Scleral Icterus, PERRLA Ears/Nose/Mouth/Throat: NL Teeth, Lips, Gums, Mucous Membranes Moist Neck: NL Appearance and Movements; NL JVP, Trachea Midline Respiratory: Symmetrical Chest Expansion and Respiratory Effort, Clear to Auscultation Cardiovascular: NL Sounds; No Murmurs; No JVD, RRR Abdominal: NL Sounds; No Tenderness; No Distention Lymphatic: No Cervical Adenopathy Extremities: No Edema, No Clubbing, Cyanosis Skin: No Rash or Ulcers, No Nodules or Sclerosis Neurological: - - left arm at 3+/5, L Leg at 4/5, left hemineglect. Result Diagrams: 05/24/16 05:06 05/24/16 05:06 Additional Lab and Data: Lab Results 05/22/16 05/22/16 05/22/16 Range/Units 21:27 21:27 21:27 INR (Anticoag Therapy) 1.65 H (0.89-1.11) APTT 29.6 (26.0-36.3) seconds Sodium 133 (133-145) mmol/L Potassium 4.1 (3.5-5.0) mmol/L Chloride 102 (101-111) mmol/L Carbon Dioxide 29 (22-32) mmol/L Anion Gap 2 (2-11) mmol/L BUN 15 (6-24) mg/dL Creatinine 0.93 (0.67-1.17) mg/dL Est GFR ( Amer) 101.1 (>60) Est GFR (Non-Af Amer) 78.6 (>60) BUN/Creatinine Ratio 16.1 (8-20) Glucose 107 H (70-100) mg/dL Lactic Acid 0.6 (0.5-2.0) mmol/L Calcium 8.7 (8.6-10.3) mg/dL Total Bilirubin 0.40 (0.2-1.0) mg/dL AST 20 (13-39) U/L ALT 11 (7-52) U/L Alkaline Phosphatase 81 (34-104) U/L Troponin I Pending Total Protein 6.8 (6.4-8.9) g/dL Albumin 3.5 (3.2-5.2) g/dL Globulin 3.3 (2-4) g/dL Albumin/Globulin Ratio 1.1 (1-3) Triglycerides 69 mg/dL Cholesterol 87 mg/dL LDL Cholesterol 52 mg/dL HDL Cholesterol 21.0 mg/dL Assess/Plan/Problems-Billing Assessment: 76 yo M with h/o recurrent ischemic CVA's (on ASA and Coumadin), cardiomyopathy (Ef 45% in 05/2015), MDS (recent transfusions), LBBB, , HTN, prostate ca, presented with worsening memory and left neglect -found to have subacute R occipital CVA on CT. - Patient Problems (1) CVA (cerebral infarction) Comment: cont of chronic left sided weakness , now with left homonymus hemianopsia. appreciate neurology consult. NOAC recommended initially. But after d/w Dr. Noland (heme/onc) pt is recommended to continue coumadin with Lovenox bridging to maintain INR>2.5 Pt has severe chronic anemia and thrombocytopenia and risk of bleeding is considerable. MRI brain ordered for today Cont ASA/Lovenox for now. It is also plausible that secondary to his anemia pt was in a low perfusion state and suffered from another CVA due to that. (2) Coronary artery disease Status: Chronic Comment: Stable. Trop >0.1 , but no c/o CP. EKG is at LBBB- baseline. Suspect demand ischemia. Cont aspirin, and statin. Echo shows known atrial septal aneurysm, EF 40-45%, mild pulm HTN, mild (3) Myelodysplastic disease Comment: s/p transfusion on 05/21/16. Hb now low- d/w Dr. Noland, will transfuse 1 U today. also severe thrombocytopenia- with worsening. [facility] atb pending (4) Hypertension Comment: Well-controlled. holding BP meds due to recent CVA (5) Depression Comment: Continue zoloft. (6) Dyslipidemia Comment: LDL 54 -cont statin (7) DVT prophylaxis Comment: lovenox Status and Disposition: D/c later on today, or in AM, back to [facility].
--- NOTE | 2016-05-24 11:58 | RAD ---
HISTORY: Stroke COMPARISONS: Head CT dated April 05, 2016, MRI dated September 12, 2015 TECHNIQUE: The following sequences were obtained of the head: Sagittal T1-weighted images, axial T2-weighted images, axial FLAIR images, axial susceptibility weighted images, axial T1-weighted images. Additionally, axial diffusion-weighted images were obtained with calculated apparent diffusion coefficients. FINDINGS: HEMORRHAGE/INFARCT: There is restricted diffusion consistent with subacute nonhemorrhagic infarct involving the right occipital lobe and posterior temporal lobe. Elsewhere, there is no hemorrhage or acute infarct. MASSES/SHIFT: There is no mass or shift. EXTRA-AXIAL SPACES/MENINGES: There are no extra-axial fluid collections. SULCI AND VENTRICLES: The sulci and ventricles are normal in size and position for the patient's stated age. CEREBRUM: There is multifocal encephalitis involving the left frontal lobe, right villeda radiata and basal ganglia, with diffuse elevated T2/FLAIR signal in the periventricular and subcortical white matter. BRAINSTEM: There is multifocal elevated T2/FLAIR signal within the brainstem extending into the cerebellar peduncles. CEREBELLUM: There are no focal parenchymal abnormalities. The cerebellar tonsils are normal in size and position. SELLA: The sella is normal. PINEAL: The pineal region is clear. CP ANGLE/TEMPORAL BONES: The labyrinthine structures are grossly normal. VESSELS: Normal flow-voids are noted within the visualized vertebral vasculature. DIFFUSION ABNORMALITIES: As noted above, there is restricted diffusion involving the right occipital lobe and posterior temporal lobe PARANASAL SINUSES/MASTOIDS: There is a mucous retention cyst of the right maxillary sinus. ORBITS: The orbits are unremarkable. BONES AND SOFT TISSUE: No bone or soft tissue abnormalities are noted. OTHER: None IMPRESSION: 1. 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 2. AGAIN NOTED IS MULTIFOCAL ENCEPHALOMALACIA AND WHITE MATTER DISEASE CONSISTENT WITH MULTIPLE REMOTE INFARCTS AND CHRONIC SMALL VESSEL ISCHEMIA
[2016-05-24 16:24] LABS: C Reactive Protein 25.51 mg/L (< 5.00)
[2016-05-24] MEDS: Latanoprost 0.005%* 2.5 ml BTL BOTH EYES SCH (20:25)
[2016-05-25] MEDS: Enoxaparin(*) 80 MG/0.8 ML SYR SUBCUT SCH ×2 (00:36→12:39)
[2016-05-25 05:48] LABS: Comments Flag Yes; Hematocrit 28 % (42-52); Hemoglobin 8.6 g/dl (14.0-18.0); Mean Corpuscular HGB Conc 31 g/dl (31-36); Mean Corpuscular Hemoglobin 24 pg (27-31); Mean Corpuscular Volume 78 fL (80-94); Red Blood Count 3.56 10^6/ul (4.0-5.4); Red Cell Distribution Width 25 % (10.5-15); White Blood Count 2.3 10^3/ul (3.5-10.8)
[2016-05-25 05:50] LABS: BUN/Creatinine Ratio 16.3 (8-20); Calcium 9.1 mg/dL (8.6-10.3); EGFR African American 110.6 (>60)
[2016-05-25 05:51] LABS: Add Diff/Slide Review? Slide Review Added
[2016-05-25] MEDS: Cholecalciferol TAB* 1000 UNITS PO SCH (08:28)
[2016-05-25] MEDS: Sertraline* 50 MG TAB PO SCH (08:28)
[2016-05-25] MEDS: Polyethylene Glycol 3350* 17 GM PACKET PO SCH (08:28)
[2016-05-25] MEDS: Aspirin EC Low Dose* 81 MG TAB.EC PO SCH (08:29)
[2016-05-25] MEDS: Omeprazole CAP* 20 MG PO SCH (08:29)
[2016-05-25] MEDS: Atorvastatin* 10 MG TAB PO SCH (08:29)
[2016-05-25] MEDS: Cyanocobalamin TAB* 500 MCG PO SCH (08:29)
[2016-05-25] MEDS: Warfarin TAB(*) 4 MG PO SCH (15:58)
--- NOTE | 2016-05-25 16:11 | PN ---
Subjective Date of Service: 05/25/16 Interval History: Pt feels tired today. PMRU stay was not approved by pt's insurance and pt's is in the process of appeal Objective Active Medications: Al Hydrox/Mg Hydrox/Simethicone (Maalox Plus*) 30 ml PO Q6H PRN PRN Reason: INDIGESTION Aspirin (Aspirin Ec Low Dose*) 81 mg PO DAILY [facility] Last Admin: 05/25/16 08:29 Dose: 81 mg Atorvastatin Calcium (Lipitor*) 10 mg PO DAILY [facility] Last Admin: 05/25/16 08:29 Dose: 10 mg Cholecalciferol (Vitamin D Tab*) 1,000 units PO QAM [facility] Last Admin: 05/25/16 08:28 Dose: 1,000 units Cyanocobalamin (Vitamin B12 Tab*) 1,000 mcg PO DAILY [facility] Last Admin: 05/25/16 08:29 Dose: 1,000 mcg Docusate Sodium (Colace Cap*) 200 mg PO QAM PRN PRN Reason: CONSTIPATION Enoxaparin Sodium (Lovenox(*)) 70 mg SUBCUT Q12H [facility] Last Admin: 05/25/16 12:39 Dose: 70 mg Latanoprost (Xalatan 0.005%*) 1 drop BOTH EYES BEDTIME [facility] PRN Reason: Protocol Last Admin: 05/24/16 20:25 Dose: 1 drop Magnesium Hydroxide (Milk Of Magnlois Liq*) 30 ml PO Q4H PRN PRN Reason: CONSTIPATION Omeprazole (Prilosec Cap*) 20 mg PO DAILY [facility] Last Admin: 05/25/16 08:29 Dose: 20 mg Ondansetron HCl (Zofran Inj*) 4 mg IV Q4H PRN PRN Reason: NAUSEA/VOMITING Polyethylene Glycol/Electrolytes (Miralax*) 17 gm PO DAILY [facility] Last Admin: 05/25/16 08:28 Dose: 17 gm Senna (Senokot Tab*) 1 tab PO BEDTIME PRN PRN Reason: CONSTIPATION Sertraline HCl (Zoloft*) 150 mg PO DAILY [facility] Last Admin: 05/25/16 08:28 Dose: 150 mg Warfarin Sodium (Coumadin Tab(*)) 4 mg PO DAILY@1700 [facility] PRN Reason: Protocol Last Admin: 05/25/16 15:58 Dose: 4 mg Vital Signs 05/24/16 05/24/16 05/24/16 19:37 19:42 20:00 Temperature 97.5 F Pulse Rate 87 Respiratory 20 20 Rate Blood Pressure 125/53 (mmHg) O2 Sat by Pulse 97 97 Oximetry 05/24/16 05/25/16 05/25/16 23:45 04:04 07:19 Temperature 98.4 F 97.1 F Pulse Rate 89 82 Respiratory 16 16 16 Rate Blood Pressure 138/72 130/63 (mmHg) O2 Sat by Pulse 96 98 Oximetry 05/25/16 05/25/16 05/25/16 07:41 07:46 11:36 Temperature 98.3 F 98.3 F Pulse Rate 89 83 Respiratory 16 Rate Blood Pressure 135/72 (mmHg) O2 Sat by Pulse 99 98 97 Oximetry 05/25/16 11:43 Temperature Pulse Rate 82 Respiratory 20 Rate Blood Pressure 114/60 (mmHg) O2 Sat by Pulse 95 Oximetry Oxygen Devices in Use Now: None Appearance: 76 yo F in NAD, aAOx3, poor historian Eyes: No Scleral Icterus, PERRLA Ears/Nose/Mouth/Throat: NL Teeth, Lips, Gums, Mucous Membranes Moist Neck: NL Appearance and Movements; NL JVP, Trachea Midline Respiratory: Symmetrical Chest Expansion and Respiratory Effort, Clear to Auscultation Cardiovascular: NL Sounds; No Murmurs; No JVD, RRR Abdominal: NL Sounds; No Tenderness; No Distention Lymphatic: No Cervical Adenopathy Extremities: No Edema, No Clubbing, Cyanosis Skin: No Rash or Ulcers, No Nodules or Sclerosis Neurological: - - left mild facial droop, left hemineglect, left arm at 3+/5, left leg 4/5, speech clear Result Diagrams: 05/25/16 05:15 05/25/16 05:15 Additional Lab and Data: Lab Results 05/22/16 05/22/16 05/22/16 Range/Units 21:27 21:27 21:27 INR (Anticoag Therapy) 1.65 H (0.89-1.11) APTT 29.6 (26.0-36.3) seconds Sodium 133 (133-145) mmol/L Potassium 4.1 (3.5-5.0) mmol/L Chloride 102 (101-111) mmol/L Carbon Dioxide 29 (22-32) mmol/L Anion Gap 2 (2-11) mmol/L BUN 15 (6-24) mg/dL Creatinine 0.93 (0.67-1.17) mg/dL Est GFR ( Amer) 101.1 (>60) Est GFR (Non-Af Amer) 78.6 (>60) BUN/Creatinine Ratio 16.1 (8-20) Glucose 107 H (70-100) mg/dL Lactic Acid 0.6 (0.5-2.0) mmol/L Calcium 8.7 (8.6-10.3) mg/dL Total Bilirubin 0.40 (0.2-1.0) mg/dL AST 20 (13-39) U/L ALT 11 (7-52) U/L Alkaline Phosphatase 81 (34-104) U/L Troponin I Pending Total Protein 6.8 (6.4-8.9) g/dL Albumin 3.5 (3.2-5.2) g/dL Globulin 3.3 (2-4) g/dL Albumin/Globulin Ratio 1.1 (1-3) Triglycerides 69 mg/dL Cholesterol 87 mg/dL LDL Cholesterol 52 mg/dL HDL Cholesterol 21.0 mg/dL Assess/Plan/Problems-Billing Assessment: 76 yo M with h/o recurrent ischemic CVA's (on ASA and Coumadin), cardiomyopathy (Ef 45% in 05/2015), MDS (recent transfusions), LBBB, , HTN, prostate ca, presented with worsening memory and left neglect -found to have subacute R occipital CVA on CT. - Patient Problems (1) CVA (cerebral infarction) Comment: cont of chronic left sided weakness , now with left homonymus hemianopsia. appreciate neurology consult. NOAC recommended initially. But after d/w Dr. Noland (heme/onc) pt is recommended to continue coumadin with Lovenox bridging to maintain INR>2.5 (INR 1.3 today). That was also d/w pt's neurologist. Pt has severe chronic anemia and thrombocytopenia and risk of bleeding is considerable. MRI brain showed R HEEL VARNISHER territory, ischemic CVA. Cont ASA/Lovenox, coumadin It is also plausible that secondary to his anemia pt was in a low perfusion state and suffered from another CVA due to that. (2) Coronary artery disease Status: Chronic Comment: Stable. Trop >0.1 , but no c/o CP. EKG is at LBBB- baseline. Suspect demand ischemia. Cont aspirin, and statin. Echo shows known atrial septal aneurysm, EF 40-45%, mild pulm HTN, mild (3) Myelodysplastic disease Comment: s/p transfusion on 05/21/16 and on 05/24/16. Hb stable now. also severe thrombocytopenia- improving. PNH atb pending (4) Hypertension Comment: Well-controlled. holding BP meds due to recent CVA (5) Depression Comment: Continue zoloft. (6) Dyslipidemia Comment: LDL 54 -cont statin (7) DVT prophylaxis Comment: lovenox Status and Disposition: Pt's is in the process of appealing to the insurance company re: PMRU stay. If pt is unable to go to PMRU, he will be discharged to [facility] with VNS.
[2016-05-25] MEDS: Latanoprost 0.005%* 2.5 ml BTL BOTH EYES SCH (20:13)
[2016-05-26] MEDS: Enoxaparin(*) 80 MG/0.8 ML SYR SUBCUT SCH ×3 (00:42→23:44)
[2016-05-26 05:55] LABS: Hematocrit 27 % (42-52); Hemoglobin 8.5 g/dl (14.0-18.0); Mean Corpuscular HGB Conc 32 g/dl (31-36); Mean Corpuscular Hemoglobin 25 pg (27-31); Mean Corpuscular Volume 78 fL (80-94); Mean Platelet Volume 10 um3 (7.4-10.4); Red Blood Count 3.45 10^6/ul (4.0-5.4); White Blood Count 2.6 10^3/ul (3.5-10.8)
[2016-05-26 05:58] LABS: Comments Flag Yes; Red Cell Distribution Width 25 % (10.5-15)
[2016-05-26 05:59] LABS: Add Diff/Slide Review? Manual Diff Added
[2016-05-26 06:07] LABS: BUN/Creatinine Ratio 18.6 (8-20); EGFR African American 110.6 (>60); Potassium 3.9 mmol/L (3.5-5.0)
[2016-05-26 06:38] LABS: Neutrophil % 40 % (38-83)
[2016-05-26 06:39] LABS: Add Path Review? YES
[2016-05-26] MEDS: Sertraline* 50 MG TAB PO SCH (08:32)
[2016-05-26] MEDS: Polyethylene Glycol 3350* 17 GM PACKET PO SCH (08:32)
[2016-05-26] MEDS: Cholecalciferol TAB* 1000 UNITS PO SCH (08:32)
[2016-05-26] MEDS: Aspirin EC Low Dose* 81 MG TAB.EC PO SCH (08:32)
[2016-05-26] MEDS: Atorvastatin* 10 MG TAB PO SCH (08:33)
[2016-05-26] MEDS: Omeprazole CAP* 20 MG PO SCH (08:33)
[2016-05-26] MEDS: Cyanocobalamin TAB* 500 MCG PO SCH (08:33)
[2016-05-26 11:34] LABS: PNH RBC Partial Antigen Loss 0.01 % (0.00-0.99)
--- NOTE | 2016-05-26 12:00 | PN ---
Subjective Date of Service: 05/26/16 Interval History: . tired, otherwise no c/o . Family History: Unchanged from Admission Social History: Unchanged from Admission Past Medical History: Unchanged from Admission Objective Active Medications: . Al Hydrox/Mg Hydrox/Simethicone (Maalox Plus*) 30 ml PO Q6H PRN PRN Reason: INDIGESTION Aspirin (Aspirin Ec Low Dose*) 81 mg PO DAILY [facility] Last Admin: 05/26/16 08:32 Dose: 81 mg Atorvastatin Calcium (Lipitor*) 10 mg PO DAILY [facility] Last Admin: 05/26/16 08:33 Dose: 10 mg Cholecalciferol (Vitamin D Tab*) 1,000 units PO QAM [facility] Last Admin: 05/26/16 08:32 Dose: 1,000 units Cyanocobalamin (Vitamin B12 Tab*) 1,000 mcg PO DAILY [facility] Last Admin: 05/26/16 08:33 Dose: 1,000 mcg Docusate Sodium (Colace Cap*) 200 mg PO QAM PRN PRN Reason: CONSTIPATION Enoxaparin Sodium (Lovenox(*)) 70 mg SUBCUT Q12H [facility] Last Admin: 05/26/16 11:47 Dose: 70 mg Latanoprost (Xalatan 0.005%*) 1 drop BOTH EYES BEDTIME [facility] PRN Reason: Protocol Last Admin: 05/25/16 20:13 Dose: 1 drop Magnesium Hydroxide (Milk Of Magnlois Liq*) 30 ml PO Q4H PRN PRN Reason: CONSTIPATION Omeprazole (Prilosec Cap*) 20 mg PO DAILY [facility] Last Admin: 05/26/16 08:33 Dose: 20 mg Ondansetron HCl (Zofran Inj*) 4 mg IV Q4H PRN PRN Reason: NAUSEA/VOMITING Polyethylene Glycol/Electrolytes (Miralax*) 17 gm PO DAILY [facility] Last Admin: 05/26/16 08:32 Dose: 17 gm Senna (Senokot Tab*) 1 tab PO BEDTIME PRN PRN Reason: CONSTIPATION Sertraline HCl (Zoloft*) 150 mg PO DAILY [facility] Last Admin: 05/26/16 08:32 Dose: 150 mg Warfarin Sodium (Coumadin Tab(*)) 4 mg PO DAILY@1700 [facility] PRN Reason: Protocol Last Admin: 05/25/16 15:58 Dose: 4 mg . Vital Signs 05/25/16 05/25/16 05/25/16 15:33 19:52 20:00 Temperature 98.4 F 98.6 F Pulse Rate 84 86 Respiratory 20 16 16 Rate Blood Pressure 114/56 103/51 (mmHg) O2 Sat by Pulse 96 96 96 Oximetry 05/25/16 05/26/16 05/26/16 23:53 02:52 07:22 Temperature 98.5 F 98.0 F Pulse Rate 80 78 Respiratory 16 16 Rate Blood Pressure 124/55 120/53 (mmHg) O2 Sat by Pulse 98 96 96 Oximetry Oxygen Devices in Use Now: None Appearance: NAD Eyes: No Scleral Icterus Ears/Nose/Mouth/Throat: Clear Oropharnyx Neck: Trachea Midline Respiratory: Symmetrical Chest Expansion and Respiratory Effort Cardiovascular: NL Sounds; No Murmurs; No JVD Abdominal: NL Sounds; No Tenderness; No Distention Lymphatic: No Cervical Adenopathy Extremities: No Edema Skin: No Rash or Ulcers Neurological: Alert and Oriented x 3 Lines/Tubes/Other Access: Clean, Dry and Intact Peripheral IV Nutrition: Taking PO's Result Diagrams: 05/26/16 05:02 05/26/16 05:02 Additional Lab and Data: . Assess/Plan/Problems-Billing Assessment: 76 yo M with h/o recurrent ischemic CVA's (on ASA and Coumadin), cardiomyopathy (Ef 45% in 05/2015), MDS (recent transfusions), LBBB, , HTN, prostate ca, presented with worsening memory and left neglect - found to have subacute R occipital CVA on CT. - Patient Problems (1) CVA (cerebral infarction) Current Visit: No Status: Chronic Priority: High Code(s): I63.9 - CEREBRAL INFARCTION, UNSPECIFIED Comment: - cont of chronic left sided weakness, now with left homonymus hemianopsia. - appreciate neurology consult. - NOAC recommended initially. - But after d/w Dr. Noland (heme/onc) pt is recommended to continue coumadin with Lovenox bridging to maintain INR>2.5. That was also d/w pt's neurologist. - Pt has severe chronic anemia and thrombocytopenia and risk of bleeding is considerable. MRI brain showed R PRINCIPAL TECHNOLOGIST territory, ischemic CVA. - Cont ASA/Lovenox, coumadin - It is also plausible that secondary to his anemia pt was in a low perfusion state and suffered from another CVA 2/2 that. (2) Coronary artery disease Current Visit: No Status: Chronic Priority: Medium Code(s): I25.10 - ATHSCL HEART DISEASE OF [place] CORONARY ARTERY W/O ANG PCTRS Comment: - Stable. Trop >0.1 , but no c/o CP. - EKG is at LBBB-baseline. - Suspect demand ischemia. - Cont aspirin, and statin. - Echo shows known atrial septal aneurysm, EF 40-45%, mild pulm HTN, mild (3) Hypertension Current Visit: No Status: Chronic Priority: Medium Code(s): I10 - ESSENTIAL (PRIMARY) HYPERTENSION Comment: - Well-controlled. - Holding BP meds due to recent CVA (4) Myelodysplastic disease Current Visit: No Status: Chronic Priority: High Code(s): C94.6 - MYELODYSPLASTIC DISEASE, NOT CLASSIFIED Comment: - s/p transfusion on 05/21/16 and on 05/24/16. - Hb stable now. - Also severe thrombocytopenia, improving. - PNH atb pending Status and Disposition: Pt's is in the process of appealing to the insurance company re: PMRU stay. If pt is unable to go to PMRU, he will be discharged to [facility] with VNS.
[2016-05-26] MEDS: Warfarin TAB(*) 4 MG PO SCH (17:02)
[2016-05-26] MEDS: Latanoprost 0.005%* 2.5 ml BTL BOTH EYES SCH (21:36)
[2016-05-27 06:21] LABS: Hematocrit 27 % (42-52); Hemoglobin 8.5 g/dl (14.0-18.0); Mean Corpuscular HGB Conc 32 g/dl (31-36); Mean Corpuscular Hemoglobin 25 pg (27-31); Mean Corpuscular Volume 78 fL (80-94); Mean Platelet Volume 10 um3 (7.4-10.4); Red Blood Count 3.42 10^6/ul (4.0-5.4); Red Cell Distribution Width 24 % (10.5-15); White Blood Count 2.8 10^3/ul (3.5-10.8)
[2016-05-27 06:22] LABS: Add Diff/Slide Review? Manual Diff Added; Comments Flag Yes
[2016-05-27 06:39] LABS: BUN/Creatinine Ratio 18.9 (8-20); EGFR Non-African American 81.6 (>60); Potassium 3.9 mmol/L (3.5-5.0)
[2016-05-27 07:05] LABS: Neutrophil % 40 % (38-83)
[2016-05-27 07:06] LABS: Hypochromasia 2+; Microcytosis 1+; Polychromasia 1+
[2016-05-27 07:07] LABS: Add Path Review? YES
[2016-05-27] MEDS: Polyethylene Glycol 3350* 17 GM PACKET PO SCH (08:26)
[2016-05-27] MEDS: Omeprazole CAP* 20 MG PO SCH (08:26)
[2016-05-27] MEDS: Sertraline* 50 MG TAB PO SCH (08:26)
[2016-05-27] MEDS: Aspirin EC Low Dose* 81 MG TAB.EC PO SCH (08:26)
[2016-05-27] MEDS: Atorvastatin* 10 MG TAB PO SCH (08:26)
[2016-05-27] MEDS: Cyanocobalamin TAB* 500 MCG PO SCH (08:26)
[2016-05-27] MEDS: Cholecalciferol TAB* 1000 UNITS PO SCH (08:26)
[2016-05-27] MEDS: Enoxaparin(*) 80 MG/0.8 ML SYR SUBCUT SCH ×2 (12:09→23:59)
--- NOTE | 2016-05-27 14:39 | TRS ---
TRANSFER SUMMARY: DATE OF ADMISSION: 05/22/16 DATE OF TRANSFER: 05/27/16 STATUS DURING HOSPITALIZATION: Inpatient. PRIMARY CARE PROVIDER: Dr. Mattie Drew. OUTPATIENT FLOOR MANAGER/ONCOLOGIST: Dr. Benny Vallecillo. PRINCIPAL DISCHARGE DIAGNOSIS: Subacute/acute right occipital infarct on top of previous infarcts with left-sided hemineglect/left homonymous hemianopsia. DISCHARGE MEDICATION REGIMEN: 1. Aspirin 81 mg by mouth daily. 2. Lipitor 10 mg by mouth daily. 3. Vitamin D3 1000 units by mouth in the morning. 4. Vitamin B12 1000 mcg by mouth daily. 5. Docusate 200 mg by mouth in the morning as needed. 6. Lisinopril 2.5 mg by mouth daily. 7. Claritin 10 mg by mouth daily as needed for allergies. 8. Milk of magnesia 30 mL daily as needed. 9. Omeprazole 20 mg by mouth daily. 10. Zofran 4 mg every 8 hours as needed for nausea (ODT formulation). 11. Polyethylene glycol/MiraLAX 17 g daily. 12. Senna 1 tab by mouth once daily as needed for constipation. 13. Sertraline 150 mg by mouth daily. 14. Fleet Enema 1 enema per rectally daily as needed for constipation. 15. Spironolactone 12.5 mg by mouth daily. 16. Travatan 0.004% strength 1 drop both eyes at bedtime. 17. Carvedilol 3.125 mg by mouth twice daily. 18. Enoxaparin 70 mg subcu b.i.d. until warfarin is therapeutic. 19. Warfarin 4 mg by mouth daily. Follow up labs on 05/31/16, with results to [facility] staff for management of warfarin with goal INR approximately 2.5. HISTORY OF PRESENT ILLNESS/HOSPITAL COURSE: Please see the H and P by Dr. Cheryl Tee on 05/22/16, as well as the Neurology consultation by Dr. Emeka Ross on 05/23/16. In brief, Mr. Cramer is a 76-year-old right-handed gentleman with baseline myelodysplastic syndrome and atrial fibrillation, who has been on Coumadin since 2014. He presented on 05/22/16 with a subtherapeutic INR measured at 1.65 at admission. Prior to that, he was 2.5 back in April of this year. He also has a history of hypertension, hyperlipidemia, and history of coronary disease, status post CABG, as well as obstructive sleep apnea, on CPAP, and prior multiple strokes over the past 5 years and baseline left-sided weakness. He also has numbness and cognitive impairment. He is followed by [facility]. He presented on 05/22/16 with worsening confusion and a left visual field defect noted several days earlier. The patient is accompanied by his and they did some "experiments" with finger counting. The patient had left-sided neglect and could not sense coffee put to his left side. This was consistent with his left homonymous hemianopsia. The patient had a CT scan in the emergency room, which showed a new right occipital stroke but also showed an old left frontal stroke, which was consistent with previous MRIs. The patient was admitted to the inpatient medicine service and seen by Neurology in consultation. The patient had a brain MRI on 05/24/16 and this showed restriction diffusion involving the right occipital lobe and posterior temporal lobe consistent with subacute nonhemorrhagic infarct of the right DOCTOR OF NURSING PRACTICE territory with multifocal encephalomalacia and white matter disease consistent with multiple remote infarcts and chronic small vessel ischemia. The patient was evaluated from the hematology/oncology perspective with his baseline history of MDS. The patient was initially considered for a NOAC but Hematology recommend considering Coumadin with a goal INR of 2.5. They recommended stopping erythropoietin and transfusing 1 unit of packed red blood cells before discharge and this was accomplished without difficulty. There was a PNH screen done and that is not back as it is a send-out test. The patient is currently stable for discharge. He was evaluated by the PMRU at [facility] but there was an insurance denial. There was a [id number] retry and appeal and this was denied again. The patient is accompanied by his and frustrated by this. They are appealing to [place] in some way, but in the meantime have accepted a retirement placement for rehabilitation at [facility]. We are awaiting final confirmation on that but then the patient is stable for discharge. The patient is stable with respect to his other medical conditions detailed above. He can come back to the hospital if he has any worrisome symptoms including but not limited to progressive neurologic symptomatology, confusion, lightheadedness , chest pain, or other worrisome symptoms that may arise. He and his said they understand this and would comply. CONDITION AT DISCHARGE: Stable. CC: Dr. Drew; Dr. Vallecillo* [id number]/CPS #: [id number] [facility] CENTERDavid
[2016-05-27] MEDS: Warfarin TAB(*) 4 MG PO SCH (17:20)
[2016-05-27] MEDS: Latanoprost 0.005%* 2.5 ml BTL BOTH EYES SCH (20:35)
[2016-05-28 06:45] LABS: BUN/Creatinine Ratio 24.2 (8-20); Calcium 8.8 mg/dL (8.6-10.3); EGFR African American 103.6 (>60); EGFR Non-African American 80.6 (>60)
[2016-05-28 07:42] VITALS: BP 126/61
[2016-05-28] MEDS: Sertraline* 50 MG TAB PO SCH (08:58)
[2016-05-28] MEDS: Atorvastatin* 10 MG TAB PO SCH (08:59)
[2016-05-28] MEDS: Cyanocobalamin TAB* 500 MCG PO SCH (08:59)
[2016-05-28] MEDS: Polyethylene Glycol 3350* 17 GM PACKET PO SCH (08:59)
[2016-05-28] MEDS: Cholecalciferol TAB* 1000 UNITS PO SCH (08:59)
[2016-05-28] MEDS: Aspirin EC Low Dose* 81 MG TAB.EC PO SCH (08:59)
[2016-05-28] MEDS: Omeprazole CAP* 20 MG PO SCH (08:59)
[2016-05-28] MEDS: Enoxaparin(*) 80 MG/0.8 ML SYR SUBCUT SCH (11:56)
== END 2016-05-28 14:00 | DRG 65 ==
LOC: ED 21:13 → MEDTELE 23:50
PROVIDERS: ADMIT Pediatrics; ATTEND Internal Medicine
PROC: 5A09557 Assistance with Respiratory Ventilation, Greater than 96 Consecutive Hours, Continuous Positive Airway Pressure (ICD-10-PCS; 2016-05-22)
PROC: 30233N1 Transfusion of Nonautologous Red Blood Cells into Peripheral Vein, Percutaneous Approach (ICD-10-PCS; principal; 2016-05-24)
DX: I63.531 Cerebral infarction due to unspecified occlusion or stenosis of right posterior cerebral artery (principal); I25.3 Aneurysm of heart; I42.9 Cardiomyopathy, unspecified; G93.89 Other specified disorders of brain; H53.462 Homonymous bilateral field defects, left side; G81.14 Spastic hemiplegia affecting left nondominant side; I69.354 Hemiplegia and hemiparesis following cerebral infarction affecting left non-dominant side; D46.9 Myelodysplastic syndrome, unspecified; I10 Essential (primary) hypertension; K21.9 Gastro-esophageal reflux disease without esophagitis; I44.7 Left bundle-branch block, unspecified; K59.00 Constipation, unspecified; E78.5 Hyperlipidemia, unspecified; R29.810 Facial weakness; I44.0 Atrioventricular block, first degree; F32.9 Major depressive disorder, single episode, unspecified; H40.9 Unspecified glaucoma; G47.33 Obstructive sleep apnea (adult) (pediatric); E55.9 Vitamin D deficiency, unspecified; D53.9 Nutritional anemia, unspecified; I99.8 Other disorder of circulatory system; I48.91 Unspecified atrial fibrillation; I27.2 Other secondary pulmonary hypertension; I35.0 Nonrheumatic aortic (valve) stenosis; R29.703 NIHSS score 3; I25.10 Atherosclerotic heart disease of native coronary artery without angina pectoris; N40.0 Benign prostatic hyperplasia without lower urinary tract symptoms; Z86.19 Personal history of other infectious and parasitic diseases; Z98.49 Cataract extraction status, unspecified eye; Z87.891 Personal history of nicotine dependence; Z95.1 Presence of aortocoronary bypass graft; Z91.013 Allergy to seafood; Z85.46 Personal history of malignant neoplasm of prostate; I69.319 Unspecified symptoms and signs involving cognitive functions following cerebral infarction; Z82.49 Family history of ischemic heart disease and other diseases of the circulatory system; Z80.9 Family history of malignant neoplasm, unspecified; Z79.82 Long term (current) use of aspirin; Z87.442 Personal history of urinary calculi; Z91.018 Allergy to other foods; Z91.011 Allergy to milk products; Z79.01 Long term (current) use of anticoagulants; Z99.3 Dependence on wheelchair
CPT/HCPCS: 36415; 70450; 70551; 71010; 80048; 80053; 80061; 83516; 83605; 84484; 85025; 85060; 85610; 85730; 86038; 86140; 86850; 86900; 86901; 86922; 88184; 88185; 93005; 93306; 94660; 94760; 96372; 99213; A9270-GY; G0463; J0885; J1650; P9040

== ENCOUNTER 2016-08-16 18:00 | Inpatient (IN) | payer OTHER ==
--- NOTE | 2016-08-16 19:15 | RAD ---
Indication: Confusion. Single frontal view of the chest performed at 1852 hours was reviewed. Comparison is made with previous exam dated May 22, 2016. Cardiomegaly is noted. Lung reddy are clear. Patient status post transsternal thoracotomy. IMPRESSION: NO ACTIVE CARDIOPULMONARY DISEASE IS NOTED. POSTOPERATIVE CHANGES. CARDIOMEGALY IS NOTED.
[2016-08-16 19:26] LABS: Hematocrit 26 % (42-52); Hemoglobin 8.1 g/dl (14.0-18.0); Mean Corpuscular HGB Conc 32 g/dl (31-36); Mean Corpuscular Hemoglobin 26 pg (27-31); Mean Corpuscular Volume 83 fL (80-94); Mean Platelet Volume 11 um3 (7.4-10.4); Red Blood Count 3.07 10^6/ul (4.0-5.4); Red Cell Distribution Width 20 % (10.5-15); White Blood Count 1.6 10^3/ul (3.5-10.8)
[2016-08-16 19:27] LABS: Comments Flag Yes
[2016-08-16 19:33] LABS: Add Diff/Slide Review? Slide Review Added
[2016-08-16 19:37] LABS: ALT 10 U/L (7-52); AST 16 U/L (13-39); Albumin 3.5 g/dL (3.2-5.2); Alkaline Phosphatase 96 U/L (34-104); Anion Gap 6 mmol/L (2-11); BUN/Creatinine Ratio 23.5 (8-20); Blood Urea Nitrogen 19 mg/dL (6-24); CO2 Carbon Dioxide 26 mmol/L (22-32); Calcium 8.8 mg/dL (8.6-10.3); Chloride 105 mmol/L (101-111); EGFR African American 118.5 (>60); EGFR Non-African American 92.2 (>60); Globulin 3.7 g/dL (2-4); Glucose 97 mg/dL (70-100); Sodium 137 mmol/L (133-145); Total Protein 7.2 g/dL (6.4-8.9)
[2016-08-16 19:40] LABS: Troponin I 0.01 ng/mL (<0.04)
[2016-08-16 19:49] LABS: Hypochromasia 1+
--- NOTE | 2016-08-16 19:49 | RAD ---
Indication: Confusion. CT of the brain was performed without IV contrast. Comparison is made with previous exam dated May 22, 2016. Ventricular structures are midline. No midline shift is noted. Old infarct involving the right medial occipital lobe is noted. Periventricular lucency consistent with chronic ischemic White matter change is noted. No intracranial hemorrhage is noted. IMPRESSION: Old infarct right medial occipital lobe. Chronic ischemic White matter change. No intracranial mass or hemorrhage is noted.
[2016-08-16 19:51] LABS: Add Path Review? YES
[2016-08-16 20:08] LABS: Alcohol < 10 mg/dL (<10)
[2016-08-16] MEDS ORDERED: Senna TAB PO PRN (21:36)
[2016-08-16] MEDS ORDERED: Docusate CAP* 100 MG PO PRN (21:36)
[2016-08-16] MEDS ORDERED: Acetaminophen TAB* 325 MG PO PRN (21:36)
[2016-08-16] MEDS ORDERED: Ondansetron ODT TAB* 4 MG PO PRN (21:36)
--- NOTE | 2016-08-16 21:54 | HP ---
H&P (Free Text) History and Physical: PCP: Pete Drew MD Hematology: Stefanie Vallecillo MD Neurology: Malinda Fernandes MD Date/Time of Evaluation: 08/16/20162119 CC: confusion HPI: Mr Grier is a 76YO male HX myelodysplasia, CAD, CVA with sequelae of L hemiparesis & mild cognitive impairment who was at the infusion center receiving 2units pRBCs when he became confused prompting this evaluation. At baseline his reports he will occasionally make a confused statement, but today it was continuous and related mostly to location. She did not note any change to his baseline L hemiplegia, L facial droop, or other issues. At this time, both agree he is back to his baseline. He denies F/C, N/V, sweats, chest pain, change in his baseline weakness, headache, SOB, or other issues. During his evaluation he was noted to be neutropenic with an ANC of 500. However , Sunil Bennett MD ED discussed this with Stefanie Vallecillo MD oncology who advised that this is not unusual for him over the past decade and it does not appear to place him at increased risk of infection. However, while here we will adhere to neutropenic precautions. PMedHx myelodysplastic syndrome CAD/CABG CVA, multiple w/ sequelae of L hemiparesis & mild cognitive impairment HTN HLD spinal stenosis MARY on BiPap GERD gout glaucoma depression Ambulatory Orders Omeprazole CAP* [Prilosec CAP* 20 MG] 20 mg PO DAILY 10/24/13 Atorvastatin* [Lipitor 10 MG*] 10 mg PO DAILY 04/17/14 Docusate CAP* [Colace Cap*] 100 mg PO BID PRN 04/17/14 Cyanocobalamin [Vitamin B-12] 1,000 mcg PO DAILY 08/22/14 Aspirin EC Low Dose* [Ecotrin EC Low Dose 81 MG*] 81 mg PO DAILY 10/14/14 Cholecalciferol [Vitamin D3] 1,000 unit PO QAM 10/14/14 Senna TAB* [Senokot TAB*] 1 tab PO BEDTIME PRN 10/14/14 Sertraline* [Zoloft*] 150 mg PO DAILY 10/14/14 Lisinopril TAB* [Prinivil TAB 5 MG*] 5 mg PO DAILY 01/23/15 Spironolactone TAB* [Aldactone TAB 25 MG*] 12.5 mg PO DAILY 08/21/15 LoraTADine TAB(NF) [Claritin 10 MG TAB(NF)] 10 mg PO DAILY PRN 01/27/16 Ondansetron ODT TAB* [Zofran 4 MG Odt TAB*] 4 mg PO Q8H PRN 01/27/16 Polyethylene Glycol 3350* [Miralax*] 17 gm PO DAILY 01/27/16 Acetaminophen TAB* [Tylenol TAB*] 650 mg PO Q4HR PRN 04/03/16 Travoprost Z 0.004% OPHTH (NF) [Travatan Z 0.004% OPTH (NF)] 1 drop BOTH EYES BEDTIME 05/22/16 Carvedilol TAB* [Coreg TAB*] 3.125 mg PO BID #30 tab 05/27/16 Warfarin TAB(*) [Coumadin TAB(*)] 2 mg PO SUFR 08/16/16 Warfarin TAB(*) [Coumadin TAB(*)] 4 mg PO MOTUWETHSA 08/16/16 Allergies Shellfish Allergy Allergy (Severe, Verified 08/16/16 11:20) Airway Obstruction Lactose Intolerance (GI) Allergy (Verified 08/16/16 11:20) GI Upset walnuts Allergy (Intermediate, Uncoded 08/16/16 11:20) Airway Obstruction SocHx: former light smoker, mild alcohol, no recreational drugs; resides at [facility]; full code status FamHx: Mother passed of old age. Father passed in his 60s 2nd CAD. ROS: as above, otherwise reviewed and all were negative Constitutional: NAD, normally developed, obese white male vitals: Vital Signs Temp 36.9 C 08/16/16 18:08 Pulse 75 08/16/16 20:00 Resp 22 08/16/16 21:00 BP 142/123 08/16/16 19:00 Pulse Ox 98 08/16/16 20:00 Intake & Output 08/15/16 08/16/16 08/16/16 23:59 11:59 23:59 Weight 78.471 kg HEENM: atraumatic; sclera/conjunctiva: non-icteric/clear; hearing: clinically intact; oropharynx: clear, mucosa moist Neck: soft tissue: non-tender; thyroid: normal Pulmonary: clear to auscultation bilaterally, good aeration, no accessory muscle use CV: RR/RR, normal S1S2, no carotid bruit, no jugular venous distention, 2+ B DP/ PT, no edema Abdominal: soft, non-distended, non-tender, no rebound/guarding/rigidity, normoactive bowel sounds, no hepatosplenomegaly or masses, no costovertebral angle tenderness Musculoskeletal: general: grossly intact; gait: uses a wheelchair, only walks 6- 8 steps with a walker with assistance Integumental: normal appearance and texture Neurological cranial nerves II: L hemianopia (old) III/IV/: symmetric light reflex, EOMI/PERRLA VII: L facial droop (old) VIII: hearing clinically intact IX/X: no dysarthria XII: normal voice articulation motor: R-handed LUE: 3+/5 proximally, distally, & control panel assembler strength RUE: 4+/5 proximally, distally, & control panel assembler strength LLE: 3+/5 proximally & distally RLE: 4+/5 proximally & distally Psychiatric orientation: AA&O to PPS affect: calm mood: cooperative eye contact: good content: seemingly reliable responses: mildly slowed insight: fair Testing: Lab Results 08/16/16 08/16/16 08/16/16 Range/Units 19:12 19:12 19:12 WBC 1.6 L (3.5-10.8) 10^3/ul RBC 3.07 L (4.0-5.4) 10^6/ul Hgb 8.1 L (14.0-18.0) g/dl Hct 26 L (42-52) % MCV 83 (80-94) fL MCH 26 L (27-31) pg MCHC 32 (31-36) g/dl RDW 20 H (10.5-15) % Plt Count 120 L (150-450) 10^3/ul MPV 11 H (7.4-10.4) um3 Neut % (Auto) 30.1 L (38-83) % Lymph % (Auto) 55.5 H (25-47) % [place] % (Auto) 12.6 H (1-9) % Eos % (Auto) 0.3 (0-6) % Baso % (Auto) 1.5 (0-2) % Absolute Neuts (auto) 0.5 L* (1.5-7.7) 10^3/ul Absolute Lymphs (auto) 0.9 L (1.0-4.8) 10^3/ul Absolute Monos (auto) 0.2 (0-0.8) 10^3/ul Absolute Eos (auto) 0 (0-0.6) 10^3/ul Absolute Basos (auto) 0 (0-0.2) 10^3/ul Absolute Nucleated RBC 0.01 10^3/ul Nucleated RBC % 0.3 Normal RBC Morphology Not Reportable Hypochromasia 1+ Elliptocytes 1+ Hem Pathologist Commnt Pending INR (Anticoag Therapy) (0.89-1.11) Sodium 137 (133-145) mmol/L Potassium 4.0 (3.5-5.0) mmol/L Chloride 105 (101-111) mmol/L Carbon Dioxide 26 (22-32) mmol/L Anion Gap 6 (2-11) mmol/L BUN 19 (6-24) mg/dL Creatinine 0.81 (0.67-1.17) mg/dL Est GFR ( Amer) 118.5 (>60) Est GFR (Non-Af Amer) 92.2 (>60) BUN/Creatinine Ratio 23.5 H (8-20) Glucose 97 (70-100) mg/dL Lactic Acid 1.2 (0.5-2.0) mmol/L Calcium 8.8 (8.6-10.3) mg/dL Total Bilirubin 1.10 H (0.2-1.0) mg/dL AST 16 (13-39) U/L ALT 10 (7-52) U/L Alkaline Phosphatase 96 (34-104) U/L Ammonia (16-53) mol/L Troponin I 0.01 (<0.04) ng/mL Total Protein 7.2 (6.4-8.9) g/dL Albumin 3.5 (3.2-5.2) g/dL Globulin 3.7 (2-4) g/dL Albumin/Globulin Ratio 0.9 L (1-3) Serum Alcohol < 10 (<10) mg/dL 08/16/16 08/16/16 Range/Units 19:56 19:56 WBC (3.5-10.8) 10^3/ul RBC (4.0-5.4) 10^6/ul Hgb (14.0-18.0) g/dl Hct (42-52) % MCV (80-94) fL MCH (27-31) pg MCHC (31-36) g/dl RDW (10.5-15) % Plt Count (150-450) 10^3/ul MPV (7.4-10.4) um3 Neut % (Auto) (38-83) % Lymph % (Auto) (25-47) % [place] % (Auto) (1-9) % Eos % (Auto) (0-6) % Baso % (Auto) (0-2) % Absolute Neuts (auto) (1.5-7.7) 10^3/ul Absolute Lymphs (auto) (1.0-4.8) 10^3/ul Absolute Monos (auto) (0-0.8) 10^3/ul Absolute Eos (auto) (0-0.6) 10^3/ul Absolute Basos (auto) (0-0.2) 10^3/ul Absolute Nucleated RBC 10^3/ul Nucleated RBC % Normal RBC Morphology Hypochromasia Elliptocytes Hem Pathologist Commnt INR (Anticoag Therapy) 2.43 H (0.89-1.11) Sodium (133-145) mmol/L Potassium (3.5-5.0) mmol/L Chloride (101-111) mmol/L Carbon Dioxide (22-32) mmol/L Anion Gap (2-11) mmol/L BUN (6-24) mg/dL Creatinine (0.67-1.17) mg/dL Est GFR ( Amer) (>60) Est GFR (Non-Af Amer) (>60) BUN/Creatinine Ratio (8-20) Glucose (70-100) mg/dL Lactic Acid (0.5-2.0) mmol/L Calcium (8.6-10.3) mg/dL Total Bilirubin (0.2-1.0) mg/dL AST (13-39) U/L ALT (7-52) U/L Alkaline Phosphatase (34-104) U/L Ammonia 26 (16-53) mol/L Troponin I (<0.04) ng/mL Total Protein (6.4-8.9) g/dL Albumin (3.2-5.2) g/dL Globulin (2-4) g/dL Albumin/Globulin Ratio (1-3) Serum Alcohol (<10) mg/dL ECG, personally reviewed: NSR rate 77, no ischemia CXR, personally reviewed: IMPRESSION: NO ACTIVE CARDIOPULMONARY DISEASE IS NOTED. POSTOPERATIVE CHANGES. CARDIOMEGALY IS NOTED. CT brain WO, personally reviewed: IMPRESSION: Old infarct right medial occipital lobe. Chronic ischemic White matter change. No intracranial mass or hemorrhage is noted. CTA head/neck (01/2015): IMPRESSION: 1. ATHEROSCLEROSIS. 2. THERE IS A SHORT SEGMENT HIGH-GRADE STENOSIS OF THE PROXIMAL M2 SEGMENT OF THE LEFT MIDDLE CEREBRAL ARTERY, WITHOUT OBVIOUS PARENCHYMAL PERFUSION DEFICIT. 3. ELSEWHERE, THERE IS NO ANEURYSM, VASCULAR MALFORMATION, OCCLUSION, OR STENOSIS OF THE INTRACRANIAL CIRCULATION. 4. AGAIN NOTED ARE CHRONIC ISCHEMIC CHANGES OF THE PERIVENTRICULAR AND SUBCORTICAL WHITE MATTER, WITH REMOTE INFARCTS OF THE RIGHT BASAL GANGLIA AND JARA RADIATA. 5. CT IS RELATIVELY INSENSITIVE FOR THE DETECTION OF ACUTE ON CHRONIC ISCHEMIA. IF THERE IS PERSISTENT CLINICAL CONCERN FOR ACUTE INFARCT, MRI MAY BE MORE SENSITIVE. Impression: 76M presenting with confusion concerning for TIA/CVA DIAGNOSIS & PLAN Primary confusion ? etiology: infection vs TIA/CVA vs seizure : neurochecks : EEG in AM : MRI brain WO in AM : no need to re-image carotid/vertebral circulation at this time : supplemental oxygen : blood & urine CXs : Malinda Fernandes MD neurology consulted by Sunil Bennett, will follow : Stefanie Vallecillo MD hematology consulted by Sunil Bennett, will follow : supportive care neutropenia : no indication for ABX at this time : neutropenic precautions Secondary myelodysplastic syndrome : continue outpatient management per hematology CAD/CABG : review meds once reconciled CVA, multiple : sequelae of L hemiparesis & cognitive impairment : review meds once reconciled HTN : review meds once reconciled HLD : review meds once reconciled spinal stenosis : review meds once reconciled MARY : continue BiPap GERD : review meds once reconciled gout : review meds once reconciled glaucoma : review meds once reconciled depression : review meds once reconciled Admission Rational: observation for confusion of uncertain etiology in patient at high risk of rapid decompensation DVTp: SCDs Code Status: full HCP:
[2016-08-16 21:55] LABS: Urine Bacteria Absent (Absent); Urine Bilirubin Negative (Negative); Urine Glucose Negative (Negative); Urine Nitrite Negative (Negative)
--- NOTE | 2016-08-16 21:55 | ED ---
Parth Powers Alok, scribed for Grisel Bennett MD on 08/16/16 at 1909 . Altered Mental Status - HPI Summary HPI Summary: 76M presents to the ED for AMS following a blood transfusion earlier today. The patients states she dropped him off at his transfusion at 1130 and by 1600 when she came to pick him up he seemed confused much worse than baseline. PMHx includes h/o stroke, with approximately 12 total last episode in May 2016. This last stroke was accompanied by left sided weakness and left sided visual loss. Pt is able to ambulate with a walker. Pt takes Coumadin. - History Of Current Complaint Chief Complaint: EDAltMentalStatus Stated Complaint: CONFUSION Time Seen by Provider: 08/16/16 18:53 Hx Obtained From: Patient Timing: Constant, Lasting Hours Severity Initially: Moderate Severity Currently: Moderate Character: Confusion Aggravating Factor(s): Nothing Alleviating Factor(s): Nothing - Allergies/Home Medications Allergies/Adverse Reactions: Allergies Allergy/AdvReac Type Severity Reaction Status Date / Time Shellfish Allergy Allergy Severe Airway Verified 08/16/16 11:20 Obstruction Lactose Intolerance (GI) Allergy GI Upset Verified 08/16/16 11:20 walnuts Allergy Intermediate Airway Uncoded 08/16/16 11:20 Obstruction Home Medications: Home Medications Warfarin TAB(*) [Coumadin TAB(*)] 2 mg PO SUFR 08/16/16 [History Confirmed 08/16] Warfarin TAB(*) [Coumadin TAB(*)] 4 mg PO MOTUWETHSA 08/16/16 [History Confirmed 08/16/16] PMH/Surg Hx/FS Hx/Imm Hx Endocrine/Hematology History: Reports: Hx Anticoagulant Therapy, Hx Bone Marrow Disease - myelodysplastic syndrome Denies: Hx Diabetes Cardiovascular History: Reports: Hx Angina, Hx Coronary Artery Disease, Hx Hypercholesterolemia, Hx Hypertension - ON MEDS, Hx Syncope, Other Cardiovascular Problems/Disorders - LBBB Denies: Hx Congestive Heart Failure, Hx Pacemaker/ICD Respiratory History: Reports: Hx Sleep Apnea - pt states this may be new to him , unsure. Denies: Hx Asthma, Hx Chronic Obstructive Pulmonary Disease (COPD) GI History: Reports: Hx Gastroesophageal Reflux Disease, Other GI Disorders - GERD History: Reports: Hx Benign Prostatic Hyperplasia, Hx Kidney Stones, Hx Renal Disease - KIDNEY STONES, Other Problems/Disorders - KIDNEY STONES,BPH Denies: Hx Dialysis Musculoskeletal History: Reports: Hx Back Problems, Other Musculoskeletal History - Lumbar spinal stenosis Sensory History: Reports: Hx Contacts or Glasses Denies: Hx Hearing Aid Opthamlomology History: Reports: Hx Contacts or Glasses Neurological History: Reports: Other Neuro Impairments/Disorders - lumbar stenosis Psychiatric History: Reports: Hx Depression Denies: Hx Panic Disorder - Cancer History Cancer Type, 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 QUADRUPAL BYPASS-TONSILS - Immunization History Date of Tetanus Vaccine: utd Date of Influenza Vaccine: utd Infectious Disease History: No Infectious Disease History: Reports: Hx Shingles - HX of Denies: Traveled Outside the [place] in Last 30 Days - Family History Known Family History: Positive: Cardiac Disease - Social History Occupation: Retired Lives: Assisted Living Alcohol Use: None Alcohol Amount: 1 drink per week Substance Use Type: Reports: None Smoking Status (MU): Former Smoker Type: Cigarettes Have You Smoked in the Last Year: No Review of Systems Negative: Fever Positive: Other - left side visual loss Neurological: Other - confusion All Other Systems Reviewed And Are Negative: Yes Physical Exam Triage Information Reviewed: Yes Vital Signs On Initial Exam: Initial Vitals Temp Pulse Resp BP Pulse Ox 98.3 F 70 18 138/60 100 08/16/16 18:03 08/16/16 18:03 08/16/16 18:03 08/16/16 18:03 08/16/16 18:03 Vital Signs Reviewed: Yes Appearance: Positive: Well-Appearing, No Pain Distress Skin: Positive: Warm, Skin Color Reflects Adequate Perfusion, Dry Eyes: Positive: EOMI, TERI ENT: Positive: Pharynx normal, TMs normal Neck: Positive: Supple, Nontender Respiratory/Lung Sounds: Positive: Clear to Auscultation, Breath Sounds Present. Negative: Rales, Rhonchi, Wheezes Cardiovascular: Positive: RRR, Other - no gallop. Negative: Murmur, Rub Abdomen Description: Positive: Nontender, Soft, Other: - no rebound. Negative: Distended, Guarding Bowel Sounds: Positive: Present Musculoskeletal: Positive: Strength/ROM Intact. Negative: Edema Left, Edema Right Neurological: Positive: Sensory/Motor Intact, Alert, Oriented to Person Place, Time, CN Intact II-III Psychiatric: Positive: Affect/Mood Appropriate - [place] Coma Scale Coma Scale Total: 15 Diagnostics - Vital Signs Vital Signs Temp Pulse Resp BP Pulse Ox 08/16/16 18:42 74 19 99 08/16/16 18:08 98.4 F 70 18 136/60 100 08/16/16 18:03 98.3 F 70 18 138/60 100 - Laboratory Lab Results: Lab Results 08/16/16 08/16/16 08/16/16 Range/Units 19:12 19:12 19:12 WBC 1.6 L (3.5-10.8) 10^3/ul RBC 3.07 L (4.0-5.4) 10^6/ul Hgb 8.1 L (14.0-18.0) g/dl Hct 26 L (42-52) % MCV 83 (80-94) fL MCH 26 L (27-31) pg MCHC 32 (31-36) g/dl RDW 20 H (10.5-15) % Plt Count 120 L (150-450) 10^3/ul MPV 11 H (7.4-10.4) um3 Neut % (Auto) 30.1 L (38-83) % Lymph % (Auto) 55.5 H (25-47) % [place] % (Auto) 12.6 H (1-9) % Eos % (Auto) 0.3 (0-6) % Baso % (Auto) 1.5 (0-2) % Absolute Neuts (auto) 0.5 L* (1.5-7.7) 10^3/ul Absolute Lymphs (auto) 0.9 L (1.0-4.8) 10^3/ul Absolute Monos (auto) 0.2 (0-0.8) 10^3/ul Absolute Eos (auto) 0 (0-0.6) 10^3/ul Absolute Basos (auto) 0 (0-0.2) 10^3/ul Absolute Nucleated RBC 0.01 10^3/ul Nucleated RBC % 0.3 Normal RBC Morphology Not Reportable Hypochromasia 1+ Elliptocytes 1+ Hem Pathologist Commnt Pending INR (Anticoag Therapy) (0.89-1.11) Sodium 137 (133-145) mmol/L Potassium 4.0 (3.5-5.0) mmol/L Chloride 105 (101-111) mmol/L Carbon Dioxide 26 (22-32) mmol/L Anion Gap 6 (2-11) mmol/L BUN 19 (6-24) mg/dL Creatinine 0.81 (0.67-1.17) mg/dL Est GFR ( Amer) 118.5 (>60) Est GFR (Non-Af Amer) 92.2 (>60) BUN/Creatinine Ratio 23.5 H (8-20) Glucose 97 (70-100) mg/dL Lactic Acid 1.2 (0.5-2.0) mmol/L Calcium 8.8 (8.6-10.3) mg/dL Total Bilirubin 1.10 H (0.2-1.0) mg/dL AST 16 (13-39) U/L ALT 10 (7-52) U/L Alkaline Phosphatase 96 (34-104) U/L Ammonia (16-53) mol/L Troponin I 0.01 (<0.04) ng/mL Total Protein 7.2 (6.4-8.9) g/dL Albumin 3.5 (3.2-5.2) g/dL Globulin 3.7 (2-4) g/dL Albumin/Globulin Ratio 0.9 L (1-3) Serum Alcohol < 10 (<10) mg/dL 08/16/16 08/16/16 Range/Units 19:56 19:56 WBC (3.5-10.8) 10^3/ul RBC (4.0-5.4) 10^6/ul Hgb (14.0-18.0) g/dl Hct (42-52) % MCV (80-94) fL MCH (27-31) pg MCHC (31-36) g/dl RDW (10.5-15) % Plt Count (150-450) 10^3/ul MPV (7.4-10.4) um3 Neut % (Auto) (38-83) % Lymph % (Auto) (25-47) % [place] % (Auto) (1-9) % Eos % (Auto) (0-6) % Baso % (Auto) (0-2) % Absolute Neuts (auto) (1.5-7.7) 10^3/ul Absolute Lymphs (auto) (1.0-4.8) 10^3/ul Absolute Monos (auto) (0-0.8) 10^3/ul Absolute Eos (auto) (0-0.6) 10^3/ul Absolute Basos (auto) (0-0.2) 10^3/ul Absolute Nucleated RBC 10^3/ul Nucleated RBC % Normal RBC Morphology Hypochromasia Elliptocytes Hem Pathologist Commnt INR (Anticoag Therapy) 2.43 H (0.89-1.11) Sodium (133-145) mmol/L Potassium (3.5-5.0) mmol/L Chloride (101-111) mmol/L Carbon Dioxide (22-32) mmol/L Anion Gap (2-11) mmol/L BUN (6-24) mg/dL Creatinine (0.67-1.17) mg/dL Est GFR ( Amer) (>60) Est GFR (Non-Af Amer) (>60) BUN/Creatinine Ratio (8-20) Glucose (70-100) mg/dL Lactic Acid (0.5-2.0) mmol/L Calcium (8.6-10.3) mg/dL Total Bilirubin (0.2-1.0) mg/dL AST (13-39) U/L ALT (7-52) U/L Alkaline Phosphatase (34-104) U/L Ammonia 26 (16-53) mol/L Troponin I (<0.04) ng/mL Total Protein (6.4-8.9) g/dL Albumin (3.2-5.2) g/dL Globulin (2-4) g/dL Albumin/Globulin Ratio (1-3) Serum Alcohol (<10) mg/dL Result Diagrams: 08/16/16 19:12 08/16/16 19:12 Lab Statement: Any lab studies that have been ordered have been reviewed, and results considered in the medical decision making process. - Radiology CXR Xray Interpretation: Positive (See Comments) - IMPRESSION: NO ACTIVE CARDIOPULMONARY DISEASE IS NOTED. POSTOPERATIVE CHANGES. CARDIOMEGALY IS NOTED. Radiology Interpretation Completed By: Radiologist - CT Brain CT CT Interpretation: Positive (See Comments) - IMPRESSION: Old infarct right medial occipital lobe. Chronic ischemic White matter change. No intracranial mass or hemorrhage is noted. CT Interpretation Completed By: Radiologist - EKG 1842 Cardiac Rate: NL - 77 bpm EKG Rhythm: Sinus Rhythm EKG Interpretation: LBBB Altered Mental Statu Course/Dx - Course Course Of Treatment: Discussed patient care with Dr. Fernandes given history of multiple strokes and neutropenia should be admitted, at Dr. Lopez's request case discussed with Dr. Vallecillo (oncology) @ 1648 who agreed with the recommendation since pt has had neutropenia for years and does not have issues with infection during hospital stays - Diagnoses Discharge Diagnoses: Altered mental status - Provider Notifications Discussed Care Of Patient With: Floyd Fagan - Will admit pt to [facility] pending oncology consult Time Discussed With Above Provider: 21:18 Discharge - Discharge Plan Condition: Stable Disposition: ADMITTED TO [facility] Referrals: Mattie Drew MD [Primary Care Provider] - The documentation as recorded by the Parth nieves Alok accurately reflects the service I personally performed and the decisions made by me, Grisel Bennett MD.
[2016-08-17] MEDS ORDERED: Bisacodyl SUPP* 10 MG SUPP PR PRN (06:52)
[2016-08-17] MEDS: Omeprazole CAP* 20 MG PO SCH (08:12)
[2016-08-17] MEDS ORDERED: Lisinopril TAB* 5 MG PO SCH (09:00)
[2016-08-17] MEDS ORDERED: Carvedilol TAB* 3.125 MG PO SCH (09:00)
[2016-08-17] MEDS ORDERED: Aspirin Low Dose CHEW TAB* 81 MG PO SCH (09:00)
[2016-08-17 09:16] LABS: Hematocrit 24 % (42-52); Hemoglobin 7.8 g/dl (14.0-18.0); Mean Corpuscular HGB Conc 32 g/dl (31-36); Mean Corpuscular Hemoglobin 27 pg (27-31); Mean Corpuscular Volume 83 fL (80-94); Mean Platelet Volume 10 um3 (7.4-10.4); Red Blood Count 2.93 10^6/ul (4.0-5.4); Red Cell Distribution Width 20 % (10.5-15)
[2016-08-17 09:22] LABS: Comments Flag Yes
[2016-08-17 09:23] LABS: White Blood Count 1.8 10^3/ul (3.5-10.8)
[2016-08-17] MEDS: Polyethylene Glycol 3350* 17 GM PACKET PO SCH (09:28)
[2016-08-17] MEDS: Atorvastatin* 10 MG TAB PO SCH (09:29)
[2016-08-17] MEDS: Spironolactone TAB* 25 MG PO SCH (09:29)
[2016-08-17] MEDS: Carvedilol TAB* 3.125 MG PO SCH ×2 (09:30→20:47)
[2016-08-17] MEDS: Lisinopril TAB* 5 MG PO SCH (09:30)
[2016-08-17] MEDS: Sertraline* 50 MG TAB PO SCH (09:31)
[2016-08-17] MEDS: Aspirin EC Low Dose* 81 MG TAB.EC PO SCH (09:31)
--- NOTE | 2016-08-17 11:39 | PN ---
Subjective Date of Service: 08/17/16 Interval History: Patient seen this morning. Feels back to baseline. Does not recall specific details about his confusion yesterday but recalls going to and receiving transfusion. No pain, SOB. Family History: Unchanged from Admission Social History: Unchanged from Admission Past Medical History: Unchanged from Admission Objective Active Medications: Acetaminophen (Tylenol Tab*) 650 mg PO Q6H PRN Aspirin (Aspirin Ec Low Dose*) 81 mg PO DAILY BROOK Atorvastatin Calcium (Lipitor*) 10 mg PO DAILY BROOK Bisacodyl (Dulcolax Supp*) 10 mg AL Q72HR PRN Carvedilol (Coreg Tab*) 1.5625 mg PO BID BROOK Docusate Sodium (Colace Cap*) 100 mg PO BID PRN Latanoprost (Xalatan 0.005%*) 1 drop BOTH EYES BEDTIME BROOK Lisinopril (Prinivil Tab*) 2.5 mg PO DAILY BROOK Omeprazole (Prilosec Cap*) 20 mg PO DAILY@0730 [facility] Ondansetron HCl (Zofran Odt Tab*) 4 mg PO Q8H PRN Polyethylene Glycol/Electrolytes (Miralax*) 17 gm PO DAILY BROOK Senna (Senokot Tab*) 1 tab PO BEDTIME PRN Sertraline HCl (Zoloft*) 150 mg PO DAILY BROOK Spironolactone (Aldactone Tab*) 12.5 mg PO DAILY BROOK Warfarin Sodium (Coumadin Tab(*)) 4 mg PO SuMoTuWeFrSa BROOK Warfarin Sodium (Coumadin Tab(*)) 2 mg PO Th [facility] Vital Signs 08/16/16 08/16/16 08/16/16 22:00 22:04 22:30 Temperature 98 F 98.2 F Pulse Rate 86 82 Respiratory 16 16 18 Rate Blood Pressure 114/52 114/52 120/88 (mmHg) O2 Sat by Pulse 99 Oximetry 08/17/16 08/17/16 08/17/16 07:05 07:24 10:24 Temperature 99.8 F Pulse Rate 80 Respiratory 16 16 Rate Blood Pressure 120/53 (mmHg) O2 Sat by Pulse 96 96 Oximetry Oxygen Devices in Use Now: None Appearance: Elderly M, laying in bed in NAD Eyes: No Scleral Icterus, PERRLA Ears/Nose/Mouth/Throat: Mucous Membranes Moist Neck: NL Appearance and Movements; NL JVP Respiratory: Symmetrical Chest Expansion and Respiratory Effort, Clear to Auscultation Cardiovascular: NL Sounds; No Murmurs; No JVD, RRR Abdominal: NL Sounds; No Tenderness; No Distention Lymphatic: No Cervical Adenopathy Extremities: No Edema Skin: No Rash or Ulcers Neurological: Alert and Oriented x 3, - - L facial droop, very light hand clinical staff pharmacist on the L, unable to raise LUE off the bed, 3+ LLE hip flexion, 5/5 strength throughout R side Result Diagrams: 08/17/16 08:42 08/16/16 19:12 Assess/Plan/Problems-Billing Assessment: Transient confusion in a 76 yo M with hx of multiple strokes on coumadin, transfusion-dependent MDS, CAD, GERD, MARY, HTN, spinal stenosis, GERD - Patient Problems (1) Confusion Current Visit: Yes Comment: transient around the time of blood transfusion. Seems to have resolved, patient at his neurological baseline. ?TIA. Appreciate Neurology assistance. MRI and EEG to be done tomorrow. Continue to monitor on telemetry for now. No clear infectious etiology. Continue ASA, Coumadin, statin. As per Dr. Fernandes patient never had documented evidence of AFib but had multifocal CVAs (2) Myelodysplastic disease Current Visit: No Comment: S/P transfusion on 08/16. Hb 7.8 today. Continue to monitor. ANC 800 today from 500. (3) Hypertension Current Visit: No Comment: Continue home Coreg, Spironolactone, Lisinopril (4) Depression Current Visit: No Comment: Continue zoloft. (5) GERD (gastroesophageal reflux disease) Current Visit: No Comment: stable continue PPI (6) MARY (obstructive sleep apnea) Current Visit: Yes Comment: Continue PPV overnight (7) DVT prophylaxis Current Visit: No Comment: Coumadin Status and Disposition: Inpatient for MRI, EEG to complete TIA work-up
--- NOTE | 2016-08-17 14:39 | CONS ---
CC: Dr. Mattie Drew; Dr. 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 He is treated with aspirin and Coumadin and low-dose Lipitor. Niralikaci was receiving 2 units of packed red blood cells yesterday when he was noted to become confused particularly on time/ date. He made a comment to his about Eyad presents. He was brought to the emergency room where he was noted to return back to his normal mental status according to the hospitalist admit note. He was also noted to be neutropenic in the emergency room. He was admitted for evaluation of these symptoms. Aleksandar Shoaib himself could not give any history. He does not remember any particular difficulties. He notes he does not like needles and often has to be stuck several times when they are trying to get access. He denies taking any sedating medication prior to infusion. Shoaib's past medical history includes recurrent strokes, cardiomyopathy, coronary artery disease, left bundle branch block, hypertension, sleep apnea, prostate cancer, myelodysplastic syndrome for which he has received Epogen and recurrent transfusions, lumbosacral spinal stenosis, gout, glaucoma, and depression. His stroke history is extensive, dates back to October 2011 when he developed a right thalamic stroke with hemineglect and left-sided weakness, fatigue, cognitive change, proprioception, changes on the left-hand side. At that time, he was on aspirin, it was changed to Aggrenox, which caused nausea and eventually changed to Plavix. In October 2013, he developed right caudate head, right thalamus, and right pontine strokes with increased left-sided weakness affecting his cognition, mood, as well as strength on the left-hand side with need for ramses-walker. Given the strokes are more than one vascular distribution in the setting of reduced ejection fraction, he was placed on Coumadin. His symptoms worsened with hypotension. He was noted to have intracranial stenosis as well, and originally was on 2 antiplatelets and a statin but then switched over to statin, aspirin, and Coumadin. In September 2014, he had functional decline with decreased energy and motivation, increased weakness on the left-hand side with diffusion changes noted in the right medulla; later it was questioned whether this may be secondary to Wallerian degeneration. Later in September 2014, he was admitted to hospital and found to have left parasagittal ischemia in the amado. He was seen at [facility] by Dr. Micha Wooten and had further testing with anticardiolipin antibody and lupus anticoagulant, which were negative. Further suggestions by Dr. Wooten were evaluation and treatment of sleep apnea, further aggressive control of blood pressure and lipids and question of whether there was more a role of small vessel disease rather than cardioembolic stroke. Of note, his sedimentation rate was 31 with a negative BRIAN and RPR was negative, cANCA and pANCA were negative. C-reactive protein was 2.3. Beta-2 glycoprotein was negative. At that point, his LDL was 73. Again, a short segment of high-grade stenosis was noted in the proximal M2 segment in to the left MCA. In August 2015 , he went on to have stroke in the left external capsule with changes on MRI in the left frontal lobe suggesting that there had been another stroke in the interim. In May 2016, he went on to have a right CRTT ischemic stroke with left homonymous hemianopsia and increased confusion. His INR on admission was 1.65. MEDICATIONS: Current medications include: 1. Acetaminophen 650 mg p.o. q.6 hours p.r.n. pain. 2. Aspirin 81 mg p.o. q. day. 3. Atorvastatin 10 mg p.o. q. day. 4. Dulcolax 10 mg per rectum q.72 hours p.r.n. constipation. 5. Coreg 1.56 mg p.o. b.i.d. 6. Colace 100 mg p.o. b.i.d. 7. Xalatan 0.005% one drop both eyes at bedtime. 8. Lisinopril 2.5 mg p.o. q. day. 9. Omeprazole 20 mg p.o. q. day. 10. Ondansetron 4 mg p.o. q.8 hours p.r.n. nausea, vomiting. 11. MiraLAX 17 g p.o. q. day. 12. Senna 1 tablet p.o. q p.m. p.r.n. constipation. 13. Zoloft 150 mg p.o. q. day. 14. Spironolactone 12.5 mg p.o. q. day. 15. Warfarin dosed 4 mg on all days except for where he receives 2 mg. ALLERGIES: Includes SHELLFISH, LACTOSE, and WALNUTS. FAMILY HISTORY: Includes father who had coronary artery disease and in his 60s, the mother in old age. 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 Lives at [facility]. He does not smoke. There is no significant alcohol intake. REVIEW OF SYSTEMS: Dr. Cramer denies any chest pain, chest pressure, palpitation, shortness of breath, rashes, weight loss. He indicates his appetite has been good and he has actually gained weight. There have been no drenching sweats. He denies any new change in his vision, numbness, or weakness of arms or legs, change or bowel or bladder habits, new change in coordination or gait. He walks with a walker at baseline. He indicates that he is supposed to be using a walker an hour a day for exercise as instructed by Physical Therapy and is not always doing so and plans to work on this. He indicates that his mood has declined. He has been frustrated by his lack of independence, not being able to drive. He worries about being a burden on his . PHYSICAL EXAM: On examination today, most recent vitals include a temperature of 99.8 degrees Fahrenheit measured temporally, heart rate was 80 and regular, respiratory rate 16, saturation was 96%, and blood pressure was 120/53. He had a regular cardiac rhythm. His lungs were clear to auscultation. There was not appreciated murmur or carotid bruit. His pulses were present at his posterior tibial and dorsalis pedis. There were no petechiae noted. No evidence of peripheral edema, no cord palpated in his calves. He was awake, alert. He was aware of the month. He was aware of his location. He did not know the circumstances around what happened leading him to admission. His pupils were responsive to light from 2 to 1 mm, I had difficulty visualizing his fundi. He had full extraocular movements with saccadic intrusions in both horizontal and vertical directions. He had a left homonymous hemianopsia. His facial expression was asymmetric with a mild left central seventh. He denied any asymmetries in sensation on his face or asymmetries in hearing to finger rub. His palate was upgoing, tongue was midline, sternocleidomastoid was 5/5 in strength. His trapezius on the right was strong with full movement and no movement on the left. His right arm and leg showed normal bulk and tone, no pronator drift and full strength. In his left arm and leg, there was increased tone, decreased range of movement particularly at the shoulder on the left hand side but also increased tone, making it more difficult to bend the arm and bend the leg. On the left hand side, he had weakness of deltoid at 1/5, biceps 3/5, triceps 4-/5, intrinsic hand muscle 3/5, hip flexion 4-/5, knee extension 5-/5, knee flexion 2/5, dorsiflexion 0/5. His reflexes were 2+ in the upper extremities, absent at the right knee, 3+ at the left knee, absent at the ankles. Toes were downgoing on the right, equivocal on the left. On sensory exam, he denied any asymmetries to sharp, cold, or light touch. No neglect was noted with double simultaneous stimulation. He had normal coordination in the right upper and lower extremity. He had difficulty with left upper and lower extremity consistent with spasticity and weakness. DIAGNOSTIC STUDIES/LAB DATA: Includes CT of the brain which showed old right occipital stroke, chronic ischemic changes with no changes noted from previous. This film was reviewed directly. Chest x-ray failed to show infiltrate, however cardiomegaly was noted along with postoperative changes. His labs revealed a white count initially of 1.6, repeated at 1.8 with absolute neutrophils at 0.5 and 0.8 respectively. His hemoglobin and hematocrit were low initially 8.1 and 26, repeated at 7.8 and 24; platelet count was 120, repeated at 87. His metabolic panel showed an elevated BUN and creatinine ratio at 23.5. His total bilirubin was elevated at 1.1. His INR on admission was 2.43. His urinalysis showed 1+ esterase and no other significant changes. 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 Cause of confusion is unclear. He does indicate stress when going to get infusion, I am not identifying, however, any other inciting factor as far as medications. The patient unfortunately cannot give many details regarding the events. At this time, he is back to his normal baseline by history and examination. As discussed with Dr. Cramer, it will be very hard to exclude transient ischemic attack or very mild stroke in the setting of his significant deficits and abnormal baseline. MRI of the brain is planned. He is being monitored on telemetry and we will watch for arrhythmia that could contribute. He is on Coumadin and discussion has taken place with his outpatient doctors including Dr. Busch in Cardiology, Dr. Drew, and Dr. Benny Vallecillo regarding the need for ongoing therapy. To date, no atrial fibrillation has been noted and his ejection fraction has improved. Plans have been made to discuss a LINQ monitor with Dr. Cramer and his . This would evaluate for atrial fibrillation to determine if he needs to remain on Coumadin. EEG has been ordered for the differential diagnosis of seizure. Hospitalist have initiated evaluation for infection. Education was given to Dr. Cramer, and I will plan to return later to talk with his . The neurology service will continue to follow with you. TIME SPENT: Over an hour was spent in direct [id number] patient care, all of the above was discussed. All questions were answered. [id number]/[facility] #: [id number] [facility]ITAL[facility]
[2016-08-17] MEDS ORDERED: Warfarin TAB(*) 2 MG PO SCH (17:00)
[2016-08-17] MEDS ORDERED: Warfarin TAB(*) 4 MG PO SCH (17:00)
[2016-08-17] MEDS ORDERED: Latanoprost 0.005%* 2.5 ml BTL BOTH EYES SCH (21:00)
[2016-08-18 05:31] LABS: Comments Flag Yes; Hematocrit 24 % (42-52); Hemoglobin 7.7 g/dl (14.0-18.0); Mean Corpuscular HGB Conc 32 g/dl (31-36); Mean Corpuscular Hemoglobin 26 pg (27-31); Mean Corpuscular Volume 82 fL (80-94); Mean Platelet Volume 10 um3 (7.4-10.4); Red Blood Count 2.95 10^6/ul (4.0-5.4); Red Cell Distribution Width 21 % (10.5-15)
[2016-08-18 05:32] LABS: Add Diff/Slide Review? Manual Diff Added
[2016-08-18 06:35] LABS: Hypochromasia 2+; Macrocytosis 1+; Microcytosis 2+; Neutrophil % 55 % (38-83)
[2016-08-18] MEDS: Omeprazole CAP* 20 MG PO SCH (07:51)
[2016-08-18] MEDS: Polyethylene Glycol 3350* 17 GM PACKET PO SCH (09:09)
[2016-08-18] MEDS: Carvedilol TAB* 3.125 MG PO SCH (09:10)
[2016-08-18] MEDS: Atorvastatin* 10 MG TAB PO SCH (09:10)
[2016-08-18] MEDS: Aspirin EC Low Dose* 81 MG TAB.EC PO SCH (09:10)
[2016-08-18] MEDS: Sertraline* 50 MG TAB PO SCH (09:10)
[2016-08-18] MEDS: Lisinopril TAB* 5 MG PO SCH (09:11)
[2016-08-18] MEDS: Spironolactone TAB* 25 MG PO SCH (09:11)
--- NOTE | 2016-08-18 12:51 | RAD ---
HISTORY: Stroke workup COMPARISONS: May 24, 2016 TECHNIQUE: The following sequences were obtained of the head: Sagittal T1-weighted images, axial T2-weighted images, axial FLAIR images, axial susceptibility weighted images, axial T1-weighted images. Additionally, axial diffusion-weighted images were obtained with calculated apparent diffusion coefficients. FINDINGS: HEMORRHAGE/INFARCT: There is no hemorrhage or acute infarct. MASSES/SHIFT: There is no mass or shift. EXTRA-AXIAL SPACES/MENINGES: There are no extra-axial fluid collections. SULCI AND VENTRICLES: There is diffuse and proportional enlargement of the sulci and ventricles. CEREBRUM: There is right occipital encephalomalacia consistent with remote infarct. There are chronic infarcts of the villeda radiata bilaterally, greater on the right than on the left. There is left frontal encephalomalacia consistent with remote infarct. There is elevated T2/FLAIR signal in the periventricular and subcortical white matter. BRAINSTEM: There is elevated T2/FLAIR signal within the cerebral peduncle and amado white matter CEREBELLUM: There is elevated T2/FLAIR signal within the middle cerebellar peduncles bilaterally. The cerebellar tonsils are normal in size and position. SELLA: The sella is normal. PINEAL: The pineal region is clear. CP ANGLE/TEMPORAL BONES: The labyrinthine structures are grossly normal. VESSELS: Normal flow-voids are noted within the visualized vertebral vasculature. DIFFUSION ABNORMALITIES: There are no diffusion abnormalities. PARANASAL SINUSES/MASTOIDS: The paranasal sinuses are clear. ORBITS: The orbits are unremarkable. BONES AND SOFT TISSUE: No bone or soft tissue abnormalities are noted. OTHER: None IMPRESSION: 1. MULTIFOCAL ENCEPHALOMALACIA CONSISTENT WITH MULTIPLE REMOTE INFARCTS, WITH ASSOCIATED CHRONIC SMALL VESSEL ISCHEMIC CHANGES. 2. THERE IS NO RESTRICTED DIFFUSION TO SUGGEST ACUTE INFARCT.
[2016-08-18 14:29] VITALS: BP 101/52
--- NOTE | 2016-08-18 14:52 | EEG ---
CC: Dr. Drew; Dr. Kayleigh Fernandes; Dr. Benny Vallecillo; Dr. 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 REPORT: In the beginning of the record, there was a quite bit of movement artifact. As this settled down eventually, a posterior dominant rhythm was noted on the left at approximately 8 Hz, on the right varying between 6 to 8 Hz. As the record continued, there was intermittent slowing noted in the right hemisphere. With time, there was fragmentation of the alpha rhythm, slowing of the background rhythm in the delta range with changes consistent with sleep. Throughout the record, there was no evidence of epileptiform activity. CLINICAL IMPRESSION: This was an abnormal EEG. During the awake state, there was intermittent slowing in the right hemisphere. There was no evidence of epileptiform activity. [id number]/[facility] #: [id number] [facility]
--- NOTE | 2016-08-18 17:29 | PN ---
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 Further workup today revealed an EEG, which showed intermittent right- sided slowing, but no epileptiform activity. MRI of the brain showed previous strokes, but no evidence of new stroke on diffusion-weighted image and no evidence of new stroke since his last scan. This film was reviewed directly and compared to previous. His stayed with him overnight and he slept well with CPAP. There have been no new symptoms. There has been note of asymptomatic V-tach on telemetry. PHYSICAL EXAMINATION: On examination, Mr. Jo-Ann Cramer's most recent blood pressure was 110/43, his pulse was 72, temperature was 97.2 degrees Fahrenheit, oxygen saturation 98%. He was awake, alert. Has baseline left central 7th, he has frontal release and sometimes will start to cry when he laughs or becomes emotional. MEDICATIONS: Include: 1. Acetaminophen 650 mg p.o. q.6 hours p.r.n. pain. 2. Aspirin 81 mg p.o. daily. 3. Atorvastatin 10 mg p.o. daily. 4. Docusate 10 mg per rectum q.72 hours p.r.n. constipation. 5. Coreg 1.56 mg p.o. b.i.d. 6. Colace 100 mg p.o. b.i.d. 7. Xalatan 0.005% one drop both eyes at bedtime. 8. Lisinopril 2.5 mg p.o. daily. 9. Prilosec 20 mg p.o. q.a.m.. 10. Ondansetron 4 mg p.o. q.6 hours p.r.n. nausea, vomiting. 11. MiraLAX 17 g p.o. daily. 12. Senna 1 tablet p.o. q.p.m. p.r.n. constipation. 13. Sertraline 150 mg p.o. daily. 14. Spironolactone 12.5 mg p.o. daily. 15. Warfarin 4 mg every day except which is 2 mg. DIAGNOSTIC STUDIES/LAB DATA: Includes CBC with slight improvement in white count to 2.0, hemoglobin and hematocrit are 7.7 and 24 similar to yesterday, and platelet count was 90 similar to yesterday. Absolute neutrophil count continues to be low at 0.9. His calcium yesterday was 1.9. His INR today dropped to 1.77, which may reflect 1 dose which was missed during his transition to hospital care. MRI Brain and EEG were as noted above, please see reports for further details. 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 No clear cause was found for the event. We had talked on today's visit regarding the fact that he is at risk for confusion if he does not wear a CPAP and get a good night sleep, particularly in the setting of underlying brain injury. This was an issue as an outpatient. We worked him up for potential seizure and did not see epileptiform activity on EEG. This does not exclude the potential for seizure activity; however, we have no diagnostic proof, and at this point, we will not start medications given lack of any other symptoms other than confusion at that time. If he continues to have repeat episodes, we will consider further monitoring potential as an outpatient. Lack of sleep could lower seizure threshold. No new ischemic lesion was noted on MRI Brain. We will continue on aspirin, Coumadin and statin as previously discussed. I would suggest getting prolonged cardiac monitoring with LINQ monitor to look for AFib and determine whether he needs to remain on Coumadin in the setting of his transfusion-dependent myelodysplastic disorder. This will also have a chance to further monitor his heart. In hospital, he was noted to have a run of asymptomatic V-tach. Education was given to Dr. Cramer and his regarding results of the workup , plan for further workup and above information. All questions were answered. The case was also discussed with Dr. Eddy in the hospitalist service. Total of 30 minutes was spent in patient care. [id number]/[facility] #: [id number] [place]
--- NOTE | 2016-08-19 01:22 | DS ---
CC: Dr. Drew; Dr. Vallecillo; Dr. Fernandes * DISCHARGE SUMMARY: DATE OF ADMISSION: 08/16/16 DATE OF DISCHARGE: 08/18/16 PRIMARY CARE PHYSICIAN: Dr. Drew. DIRECTOR OF STRATEGIC MARKETING: Dr. Vallecillo. NEUROLOGIST: Dr. Fernandes. PRIMARY DIAGNOSIS: Transient ischemic attack. SECONDARY DIAGNOSES: Include: 1. History of multiple cerebrovascular accidents. 2. History of coronary artery disease. 3. Transfusion-dependent myelodysplastic syndrome. 4. Hypertension. 5. Hyperlipidemia. 6. Gastroesophageal reflux disease. 7. Obstructive sleep apnea, on CPAP. 8. Depression. DISPOSITION AT DISCHARGE: To the [facility]. MEDICATIONS ON DISCHARGE: Unchanged from admission, include: 1. Magnesium hydroxide 30 mL daily as needed for constipation. 2. Bisacodyl suppository 10 mg every 3 days as needed for constipation. 3. Aspirin 81 mg daily. 4. Coumadin 4 mg daily except for when he is to take 2 mg. 5. Carvedilol 1.56 mg twice daily. 6. Lisinopril 2.5 mg daily. 7. Travatan 0.004% one drop both eyes at bedtime. 8. Ondansetron 4 mg 3 times a day as needed for nausea. 9. Spironolactone 12.5 mg daily. 10. Zoloft 150 mg daily. 11. Senna 1 tab at bedtime. 12. MiraLAX 17 g daily. 13. Omeprazole 20 mg daily. 14. Docusate 100 mg twice daily. 15. Cholecalciferol 1000 mg in the morning. 16. Atorvastatin 10 mg daily. 17. Claritin 10 mg daily. 18. Vitamin B12 1000 mcg daily. 19. Acetaminophen 650 mg every 4 hours as needed for pain or fever. PERTINENT IMAGING STUDIES: Brain MRI, impression: Multifocal encephalomalacia consistent with multiple remote infarct with associated chronic small vessel ischemic changes. No restricted diffusion to suggest acute infarct. EEG impression: Abnormal EEG. During the awake state, there was intermittent slowing in the right hemisphere. There was no evidence of epileptiform activity. PERTINENT LABORATORY DATA: ANC 900 on the day of discharge, increased from 500 on day of admission. Hemoglobin 7.7, platelets 90, INR 1.77. MICROBIOLOGY: Negative urine, negative blood with no growth to date. HISTORY OF PRESENT ILLNESS AND HOSPITAL COURSE: This is a 76-year-old man, past medical history as outlined in history of present illness on the day of admission including myelodysplasia requiring intermittent blood transfusion as well as multiple CVAs, remains cryptogenic at this time who had been in his usual state of health, was receiving 2 units of packed red blood cells at the infusion center when he became increasingly confused. He was seen in the emergency room. There was concern for a TIA given his transient alteration of awareness. He was seen in consultation with Neurology (Dr. Kayleigh Fernandes), who is also this patient's outpatient neurologist. An MRI did not indicate any acute stroke and an EEG was abnormal; however, notable for the absence of epileptiform activity. It is noted that the patient has not been using his CPAP consistently outside of the hospital, wears it for possibly 1 to 2 hours per day. He did use a nasal CPAP while in the hospital and tolerated overnight. I have given him Dr. Caballero's information to follow up further evaluation for nasal cannula on discharge. The adherence to CPAP until that time was discussed at length with the patient and his . Additional counseling was given to patient's to represent should symptoms redevelop including but not limited to recurrent or worsening symptoms, chest pain, shortness of breath, nausea, vomiting, lightheadedness, loss of consciousness, near loss of consciousness, aphasia, confusion, weakness or paresthesias. At followup, please; 1. INR ordered for 2 days from today, follow up on subtherapeutic levels. 2. Urine and blood cultures, negative, just short of 48 hours. Please follow up until 48 hours. 3. Please camp head counselor continued compliance with CPAP and ensure the patient follows up with Dr. Caballero for evaluation for nasal CPAP. 4. No other specific labs or vitals that need followup. TIME SPENT: Greater than 45 minutes were spent on the discharge of the patient , greater than half was spent [id number] with the patient and his . [id number]/[facility] #: [id number] [facility] HOSPITALDavid
[2016-08-19] MEDS ORDERED: Warfarin TAB(*) 2 MG PO SCH (17:00)
[2016-08-20] MEDS ORDERED: Warfarin TAB(*) 2 MG PO SCH (17:00)
== END 2016-08-18 15:45 | DRG 69 ==
LOC: ED 18:00 → MEDTELE 21:34 → OBSVTOIN 08-17 13:55
PROVIDERS: ADMIT Hospitalist; ATTEND Internal Medicine
PROC: 4A10X4Z Monitoring of Central Nervous Electrical Activity, External Approach (ICD-10-PCS; principal; 2016-08-17)
PROC: 5A09357 Assistance with Respiratory Ventilation, Less than 24 Consecutive Hours, Continuous Positive Airway Pressure (ICD-10-PCS; 2016-08-17)
DX: G45.9 Transient cerebral ischemic attack, unspecified (principal); I47.2 Ventricular tachycardia; I42.9 Cardiomyopathy, unspecified; D70.9 Neutropenia, unspecified; I69.354 Hemiplegia and hemiparesis following cerebral infarction affecting left non-dominant side; I10 Essential (primary) hypertension; K21.9 Gastro-esophageal reflux disease without esophagitis; D46.9 Myelodysplastic syndrome, unspecified; H53.8 Other visual disturbances; E73.9 Lactose intolerance, unspecified; F32.9 Major depressive disorder, single episode, unspecified; I25.10 Atherosclerotic heart disease of native coronary artery without angina pectoris; N40.0 Benign prostatic hyperplasia without lower urinary tract symptoms; E78.00 Pure hypercholesterolemia, unspecified; E78.5 Hyperlipidemia, unspecified; G47.33 Obstructive sleep apnea (adult) (pediatric); M10.9 Gout, unspecified; H40.9 Unspecified glaucoma; E66.9 Obesity, unspecified; I44.7 Left bundle-branch block, unspecified; Z85.46 Personal history of malignant neoplasm of prostate; Z91.013 Allergy to seafood; Z91.018 Allergy to other foods; I69.398 Other sequelae of cerebral infarction; Z87.442 Personal history of urinary calculi; Z98.49 Cataract extraction status, unspecified eye; Z95.1 Presence of aortocoronary bypass graft; Z87.891 Personal history of nicotine dependence; I69.392 Facial weakness following cerebral infarction; I69.319 Unspecified symptoms and signs involving cognitive functions following cerebral infarction; Z79.82 Long term (current) use of aspirin; Z68.30 Body mass index [BMI] 30.0-30.9, adult
CPT/HCPCS: 36415; 36430; 70450; 70551; 71010; 80053; 80320; 81003; 81015; 82140; 83605; 83735; 84484; 85025; 85060; 85610; 86850; 86900; 86901; 86922; 87040; 87086; 93005; 94660; 95819; 99211; A9270-GY; G0378; G0463; G0480; P9040

== ENCOUNTER 2016-08-25 10:15 | Inpatient (IN) | payer OTHER ==
[2016-08-25] MEDS ORDERED: NS 0.9% 1000 ML* 1,000 ML IV ONE (11:04)
[2016-08-25 11:29] LABS: Hematocrit 26 % (42-52); Hemoglobin 8.1 g/dl (14.0-18.0); Mean Corpuscular HGB Conc 31 g/dl (31-36); Mean Corpuscular Hemoglobin 27 pg (27-31); Mean Corpuscular Volume 85 fL (80-94); Mean Platelet Volume 10 um3 (7.4-10.4); Red Blood Count 3.06 10^6/ul (4.0-5.4); Red Cell Distribution Width 22 % (10.5-15); White Blood Count 1.8 10^3/ul (3.5-10.8)
[2016-08-25 11:35] LABS: Comments Flag Yes
[2016-08-25 11:38] LABS: Troponin I 0.03 ng/mL (<0.04)
[2016-08-25 11:39] LABS: Albumin 3.7 g/dL (3.2-5.2); BUN/Creatinine Ratio 14.1 (8-20); C Reactive Protein 14.14 mg/L (< 5.00); Calcium 9.3 mg/dL (8.6-10.3); EGFR African American 102.3 (>60); EGFR Non-African American 79.6 (>60); Globulin 3.6 g/dL (2-4); Total Bilirubin 0.5 mg/dL (0.2-1.0); Total Protein 7.3 g/dL (6.4-8.9)
[2016-08-25 11:40] LABS: Add Diff/Slide Review? Manual Diff Added
--- NOTE | 2016-08-25 11:40 | RAD ---
Single frontal view of the chest performed at 1120 hours was reviewed. Indication: Fever. Comparison is made with previous exam dated August 16, 2016. Cardiomegaly is noted. Lung reddy demonstrate no pleural fluid, pneumonia or pneumothorax. No alveolar consolidation is noted. IMPRESSION: NO ACTIVE CARDIOPULMONARY DISEASE IS NOTED.
[2016-08-25 12:05] LABS: Eosinophils % 1 % (0-6); Immature Granulocytes 1 % (0-9); Macrocytosis 1+; Microcytosis 1+; Neutrophil % 44 % (38-83)
[2016-08-25 12:06] LABS: Add Path Review? YES
[2016-08-25 12:16] LABS: Urine Bacteria Absent (Absent); Urine Bilirubin Negative (Negative); Urine Glucose Negative (Negative); Urine Nitrite Negative (Negative)
[2016-08-25 12:30] LABS: Erythrocyte Sed Rate 62 mm/Hr (0-40)
[2016-08-25] MEDS ORDERED: Ondansetron ODT TAB* 4 MG PO PRN (13:04)
[2016-08-25] MEDS ORDERED: Iohexol 300* (CONTRAST) 10 ML SDV IV ONE (13:46)
[2016-08-25] MEDS ORDERED: Zosyn per Pharmacy* NOTE FOLLOW UP SCH (14:00)
[2016-08-25] MEDS: Heparin VIAL(*) 5000 UNITS/ML VIAL (FIVE THOUSAND) SUBCUT SCH ×3 (14:10→21:01)
--- NOTE | 2016-08-25 15:05 | RAD ---
Indication: Abdominal pain. Contrast: Administered 99.9 ml of OMNIPAQUE 300 mgi/ml CT of the abdomen and pelvis was performed after oral and IV contrast demonstration. Lung bases demonstrate no pleural fluid. Atelectasis in the lingula is noted. Cardiomegaly without evidence of pericardial effusion is noted. Liver is normal in size. No focal lesions or intrahepatic duct dilatation is noted. The gallbladder demonstrates several calcified gallstones in the neck however no pericholecystic fluid or wall thickening is identified. Common duct is not dilated. The pancreas demonstrates no mass or pancreatic duct dilatation. The spleen is normal in size. No adrenal lesions are noted. The kidneys demonstrates no hydronephrosis. Parapelvic cysts are noted in the left kidney. CT of the pelvis was performed. No retroperitoneal or pelvic lymphadenopathy. Small interaortocaval lymph nodes measuring up to 8 mm. No dilated loops of bowel are noted. The colon is filled with stool. The urinary bladder is unremarkable. No hernias are identified. No free fluid is noted. Patient is status post prostatectomy. No evidence of pelvic sidewall adenopathy is noted. The bony structures are otherwise unremarkable. IMPRESSION: Cholelithiasis without biliary duct dilatation. No other masses or fluid collections are noted. Patient is status post prostatectomy.
[2016-08-25] MEDS ORDERED: Ondansetron INJ* 2 MG/ML VIAL IV PRN (15:29)
[2016-08-25] MEDS: NS 0.9% 1000 ML* 1,000 ML IV SCH (15:56)
--- NOTE | 2016-08-25 17:59 | ED ---
Jyoti Powers Claudia, scribed for Rome Merchant MD on 08/25/16 at 1047 . HPI Febrile Illness - HPI Summary HPI Summary: 76 year old male presents to [facility] with fever. Pt is unable to document due to lethargy. Family states that he has a PMHx of myelodysplastic syndrome. He received a transfusion on 08/16/16 due to low RBC. Upon arrival at the transfusion Dr. Vallecillo's nurse stated the pt had an increase in confusion towards the end of the transfusion. Pt confirmed the confusion and stated that the pt did not know that he was in the hospital and kept asking for belongings from his closet and from the refrigerator. They cthen called Dr. Vallecillo whom recommenced they come to [facility] for a Stroke Evaluation due to his PMHx of CVA. Pt was then admitted for observation Tuesday night and then admitted for inpatient Tuesday. Pt saw Dr. Fernandes Tuesday and Tuesday and received a Brain MRI on Tuesday displaying no evidence for stroke or seizure.Dr. Fernandes at that time noted that the episode could have been a TIA. Pt went home on Tuesday afternoon. am the pt began experiencing upper respiratory congestion. am pt called pt PCP Dr. Reddy's office and spoke with Dr. Rodriguez whom prescribed the pt flonase which he started at that time. Tuesday08/20/16 the pt began experiencing intermittent episodes of high fevers up to 102F. At this time the pt called PCP again and was Rx Amox/Clav and Tylenol since he is already taking Coumadin. The pt has been taking the antibiotics and Tylenol since which no alleviating of the fever. Pt was seen by [employer] at PCP on Tuesday08/24/15 whom noted some crackles in the lungs per . Pt notes decrease in disorientation since onset of Sx but increase in weakness, lethargy and fatigue. Pt is unable to document due to lethargy-level 5 caveat. - History of Current Complaint Chief Complaint: EDFever Time Seen by Provider: 08/25/16 10:35 Hx Obtained From: Patient Onset/Duration: Started Days Ago, Still Present Timing: Intermittent Pain Intensity: 0 Aggravating Factors: Nothing Alleviating Factors: Nothing Associated Signs and Symptoms: Other: - lethargy, confusion, fatigue, weakness, fever - Additional Pertinent History Primary Care Physician: SARAH - Allergy/Home Medications Allergies/Adverse Reactions: Allergies Allergy/AdvReac Type Severity Reaction Status Date / Time Shellfish Allergy Allergy Severe Airway Verified 08/25/16 10:30 Obstruction Lactose Intolerance (GI) Allergy GI Upset Verified 08/25/16 10:30 walnuts Allergy Intermediate Airway Uncoded 08/25/16 10:30 Obstruction tree pollen Allergy Sneezing Uncoded 08/25/16 10:32 Home Medications: Home Medications Carvedilol TAB* [Coreg TAB*] 1.5625 mg PO BID 08/25/16 [History Confirmed ] Sodium Phosphate ADULT ENEMA* [Fleet Enema*] 1 enema NV Q72H PRN 08/25/16 [ History Confirmed 08/25/16] PMH/Surg Hx/FS Hx/Imm Hx Previously Healthy: Yes Endocrine/Hematology History: Reports: Hx Anticoagulant Therapy, Hx Bone Marrow Disease - myelodysplastic syndrome Denies: Hx Diabetes Cardiovascular History: Reports: Hx Angina, Hx Coronary Artery Disease, Hx Hypercholesterolemia, Hx Hypertension - ON MEDS, Hx Syncope, Other Cardiovascular Problems/Disorders - LBBB Denies: Hx Congestive Heart Failure, Hx Pacemaker/ICD Respiratory History: Reports: Hx Sleep Apnea - pt states this may be new to him , unsure. Denies: Hx Asthma, Hx Chronic Obstructive Pulmonary Disease (COPD) GI History: Reports: Hx Gastroesophageal Reflux Disease, Other GI Disorders - GERD History: Reports: Hx Benign Prostatic Hyperplasia, Hx Kidney Stones, Hx Renal Disease - KIDNEY STONES, Other Problems/Disorders - KIDNEY STONES,BPH Denies: Hx Dialysis Musculoskeletal History: Reports: Hx Back Problems, Other Musculoskeletal History - Lumbar spinal stenosis Sensory History: Reports: Hx Contacts or Glasses, Hx Glaucoma Denies: Hx Cataracts, Hx Hearing Aid Opthamlomology History: Reports: Hx Contacts or Glasses, Hx Glaucoma Denies: Hx Cataracts Neurological History: Reports: Other Neuro Impairments/Disorders - lumbar stenosis Psychiatric History: Reports: Hx Depression Denies: Hx Panic Disorder - Cancer History Cancer Type, 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 QUADRUPAL BYPASS-TONSILS - Immunization History Date of Tetanus Vaccine: utd Date of Influenza Vaccine: utd Infectious Disease History: No Infectious Disease History: Reports: Hx Shingles - 2009 Denies: Traveled Outside the [place] in Last 30 Days - Family History Known Family History: Positive: Cardiac Disease - Social History Occupation: Retired Lives: At [facility] Alcohol Use: Occasionally Alcohol Amount: 1 drink per week Substance Use Type: Reports: None Smoking Status (MU): Former Smoker Type: Cigarettes Have You Smoked in the Last Year: No Review of Systems Positive: Fever ENT: Negative Cardiovascular: Negative Respiratory: Negative Positive: Other - constipated . Negative: Diarrhea Positive: incontinence - more so than usual . Negative: burning, dysuria Musculoskeletal: Negative Skin: Negative Neurological: Other - lethargy, confusion Positive: Weakness Psychological: Normal All Other Systems Reviewed And Are Negative: No Physical Exam - Summary Physical Exam Summary: VITAL SIGNS: Reviewed. GENERAL: Lethargic male is easily arousable. HEAD AND FACE: No signs of trauma. No ecchymosis, hematomas or skull depressions. No sinus tenderness. EYES: PERRLA, EOMI x 2, No injected conjunctiva, no nystagmus. EARS: Hearing grossly intact. Ear canals and tympanic membranes are within normal limits. MOUTH: Oral mucosa dry NECK: Supple, trachea is midline, no adenopathy, no JVD, no carotid bruit, no c- spine tenderness, neck with full ROM. CHEST: Symmetric, no tenderness at palpation LUNGS: Crackles in the lung base bilaterally, with decreased breath sounds. CVS: Regular rate and rhythm, S1 and S2 present, no murmurs or gallops appreciated. ABDOMEN: Soft, non-tender. No signs of distention. No rebound no guarding, and no masses palpated. Bowel sounds are normal. EXTREMITIES: FROM in all major joints, no edema, no cyanosis or clubbing. NEURO: Alert and oriented x 3. No acute neurological deficits. Speech is normal and follows commands. SKIN: Dry and warm Triage Information Reviewed: Yes Vital Signs On Initial Exam: Initial Vitals Temp Pulse Resp BP Pulse Ox 99.3 F 80 15 136/63 97 08/25/16 10:25 08/25/16 10:25 08/25/16 10:25 08/25/16 10:08/25/16 10:25 Vital Signs Reviewed: Yes - Sabrina Coma Scale Coma Scale Total: 13 Diagnostics - Vital Signs Vital Signs Temp Pulse Resp BP Pulse Ox 08/25/16 10:27 99.3 F 84 17 136/63 98 08/25/16 10:25 99.3 F 80 15 136/63 97 - Laboratory Lab Results: Lab Results 08/25/16 08/25/16 08/25/16 Range/Units 11:10 11:10 11:10 WBC 1.8 L (3.5-10.8) 10^3/ul RBC 3.06 L (4.0-5.4) 10^6/ul Hgb 8.1 L (14.0-18.0) g/dl Hct 26 L (42-52) % MCV 85 (80-94) fL MCH 27 (27-31) pg MCHC 31 (31-36) g/dl RDW 22 H (10.5-15) % Plt Count 73 L (150-450) 10^3/ul MPV 10 (7.4-10.4) um3 Immature Gran % (Auto) 1 (0-9) % Absolute Neuts (auto) 0.7 L* (1.5-7.7) 10^3/ul Absolute Lymphs (auto) 0.7 L (1.0-4.8) 10^3/ul Absolute Monos (auto) 0.2 (0-0.8) 10^3/ul Absolute Eos (auto) 0 (0-0.6) 10^3/ul Absolute Basos (auto) 0.1 (0-0.2) 10^3/ul Absolute Nucleated RBC 0 10^3/ul Neutrophils % 44 (38-83) % Band Neutrophils % 1 (0-8) % Lymphocytes % 42 (25-47) % Monocytes % 12 (0-13) % Eosinophils % 1 (0-6) % Normal RBC Morphology Not Reportable Microcytosis 1+ Macrocytosis 1+ ESR 62 H (0-40) mm/Hr Hem Pathologist Commnt Pending INR (Anticoag Therapy) 1.63 H (0.89-1.11) APTT 31.0 (26.0-36.3) seconds Fibrinogen 368 (110.8-404.3) mg/dL Sodium 132 L (133-145) mmol/L Potassium 4.0 (3.5-5.0) mmol/L Chloride 98 L (101-111) mmol/L Carbon Dioxide 28 (22-32) mmol/L Anion Gap 6 (2-11) mmol/L BUN 13 (6-24) mg/dL Creatinine 0.92 (0.67-1.17) mg/dL Est GFR ( Amer) 102.3 (>60) Est GFR (Non-Af Amer) 79.6 (>60) BUN/Creatinine Ratio 14.1 (8-20) Glucose 132 H (70-100) mg/dL Lactic Acid (0.5-2.0) mmol/L Calcium 9.3 (8.6-10.3) mg/dL Total Bilirubin 0.50 (0.2-1.0) mg/dL AST 15 (13-39) U/L ALT 8 (7-52) U/L Alkaline Phosphatase 86 (34-104) U/L Troponin I 0.03 (<0.04) ng/mL C-Reactive Protein 14.14 H (< 5.00) mg/L Total Protein 7.3 (6.4-8.9) g/dL Albumin 3.7 (3.2-5.2) g/dL Globulin 3.6 (2-4) g/dL Albumin/Globulin Ratio 1.0 (1-3) Amylase 63 (29-103) U/L Lipase 33 (11.0-82.0) U/L Urine Color Urine Appearance Urine pH (5-9) Ur Specific [place] (1.010-1.030) Urine Protein (Negative) Urine Ketones (Negative) Urine Blood (Negative) Urine Nitrate (Negative) Urine Bilirubin (Negative) Urine Urobilinogen (Negative) Ur Leukocyte Esterase (Negative) Urine WBC (Auto) (Absent) Urine RBC (Auto) (Absent) Urine Bacteria (Absent) Urine Glucose (Negative) Influenza A (Rapid) (Negative) Influenza B (Rapid) (Negative) 08/25/16 08/25/16 08/25/16 Range/Units 11:10 12:00 12:05 WBC (3.5-10.8) 10^3/ul RBC (4.0-5.4) 10^6/ul Hgb (14.0-18.0) g/dl Hct (42-52) % MCV (80-94) fL MCH (27-31) pg MCHC (31-36) g/dl RDW (10.5-15) % Plt Count (150-450) 10^3/ul MPV (7.4-10.4) um3 Immature Gran % (Auto) (0-9) % Absolute Neuts (auto) (1.5-7.7) 10^3/ul Absolute Lymphs (auto) (1.0-4.8) 10^3/ul Absolute Monos (auto) (0-0.8) 10^3/ul Absolute Eos (auto) (0-0.6) 10^3/ul Absolute Basos (auto) (0-0.2) 10^3/ul Absolute Nucleated RBC 10^3/ul Neutrophils % (38-83) % Band Neutrophils % (0-8) % Lymphocytes % (25-47) % Monocytes % (0-13) % Eosinophils % (0-6) % Normal RBC Morphology Microcytosis Macrocytosis ESR (0-40) mm/Hr Hem Pathologist Commnt INR (Anticoag Therapy) (0.89-1.11) APTT (26.0-36.3) seconds Fibrinogen (110.8-404.3) mg/dL Sodium (133-145) mmol/L Potassium (3.5-5.0) mmol/L Chloride (101-111) mmol/L Carbon Dioxide (22-32) mmol/L Anion Gap (2-11) mmol/L BUN (6-24) mg/dL Creatinine (0.67-1.17) mg/dL Est GFR ( Amer) (>60) Est GFR (Non-Af Amer) (>60) BUN/Creatinine Ratio (8-20) Glucose (70-100) mg/dL Lactic Acid 1.2 (0.5-2.0) mmol/L Calcium (8.6-10.3) mg/dL Total Bilirubin (0.2-1.0) mg/dL AST (13-39) U/L ALT (7-52) U/L Alkaline Phosphatase (34-104) U/L Troponin I (<0.04) ng/mL C-Reactive Protein (< 5.00) mg/L Total Protein (6.4-8.9) g/dL Albumin (3.2-5.2) g/dL Globulin (2-4) g/dL Albumin/Globulin Ratio (1-3) Amylase (29-103) U/L Lipase (11.0-82.0) U/L Urine Color Straw Urine Appearance Clear Urine pH 7.0 (5-9) Ur Specific [place] 1.005 L (1.010-1.030) Urine Protein Negative (Negative) Urine Ketones Negative (Negative) Urine Blood 2+ H (Negative) Urine Nitrate Negative (Negative) Urine Bilirubin Negative (Negative) Urine Urobilinogen Negative (Negative) Ur Leukocyte Esterase Negative (Negative) Urine WBC (Auto) Absent (Absent) Urine RBC (Auto) 1+(3-5/hpf) H (Absent) Urine Bacteria Absent (Absent) Urine Glucose Negative (Negative) Influenza A (Rapid) Negative (Negative) Influenza B (Rapid) Negative (Negative) Result Diagrams: 08/25/16 11:10 08/25/16 11:10 Lab Statement: Any lab studies that have been ordered have been reviewed, and results considered in the medical decision making process. - Radiology CXR Xray Interpretation: No Acute Changes - NO ACTIVE CARDIOPULMONARY DISEASE IS NOTED. 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 Influenza A and B is negative, I did order a CT for the pt since he was having some abd pain. At this point I disclosed this with the MARIANN Sharma for Dr. Dawkins whom will admit. She will follow-up with CT. He was given IV fluids and broad spectrum antibiotics. The pt is comfortable lying in the stretcher. - Febrile Illness Differential Diagnoses: Abd. Infection, Cellulitis, Fever of Unknown Origin, Pneumonia, Viremia - Diagnoses Provider Diagnoses: Fever, Pancytopenia, Neutropenia - Provider Notifications Discussed Care Of Patient With: Consulted with Dr. Dawkins whom will come see the pt in ED. Time Discussed With Above Provider: 11:53 Instructed by Provider To: Admit As Observation - Pt will be admitted by Dr. Dawkins for observation. 12:46 Discharge - Discharge Plan Condition: Stable Disposition: ADMITTED TO [facility] documentation as recorded by the Jyoti nieves Claudia accurately reflects the service I personally performed and the decisions made by me, Rome Merchant MD.
[2016-08-25] MEDS: Cetirizine* 10 MG TAB PO SCH (18:22)
[2016-08-25] MEDS: Acetaminophen TAB* 325 MG PO PRN (18:22)
[2016-08-25] MEDS: Carvedilol TAB* 3.125 MG PO SCH (20:40)
[2016-08-25] MEDS: Latanoprost 0.005%* 2.5 ml BTL BOTH EYES SCH (20:42)
[2016-08-25] MEDS: Senna TAB PO SCH (20:42)
[2016-08-25] MEDS ORDERED: ALPRAZolam TAB* 0.25 MG PO ONE (21:00)
[2016-08-26] MEDS: NS 0.9% 1000 ML* 1,000 ML IV SCH ×2 (05:11→19:58)
[2016-08-26] MEDS: Heparin VIAL(*) 5000 UNITS/ML VIAL (FIVE THOUSAND) SUBCUT SCH ×3 (05:48→22:08)
[2016-08-26 08:11] LABS: Hematocrit 25 % (42-52); Hemoglobin 8.1 g/dl (14.0-18.0); Mean Corpuscular HGB Conc 32 g/dl (31-36); Mean Corpuscular Hemoglobin 26 pg (27-31); Mean Corpuscular Volume 82 fL (80-94); Mean Platelet Volume 9 um3 (7.4-10.4); Red Blood Count 3.08 10^6/ul (4.0-5.4); Red Cell Distribution Width 22 % (10.5-15)
[2016-08-26 08:12] LABS: Add Diff/Slide Review? Manual Diff Added; Comments Flag Yes
[2016-08-26 08:29] LABS: Albumin 3.6 g/dL (3.2-5.2); Direct Bilirubin 0.1 mg/dL (0.03-0.18); Globulin 3.5 g/dL (2-4); Indirect Bilirubin 0.5 mg/dL (0.3-1.0); Total Bilirubin 0.6 mg/dL (0.2-1.0); Total Protein 7.1 g/dL (6.4-8.9)
[2016-08-26] MEDS: Acetaminophen TAB* 325 MG PO PRN ×2 (09:26→23:46)
[2016-08-26] MEDS: Cholecalciferol TAB* 1000 UNITS PO SCH (09:26)
[2016-08-26] MEDS: Docusate CAP* 100 MG PO SCH (09:27)
[2016-08-26] MEDS: Atorvastatin* 10 MG TAB PO SCH (09:27)
[2016-08-26] MEDS: Omeprazole CAP* 20 MG PO SCH (09:27)
[2016-08-26] MEDS: Aspirin Low Dose CHEW TAB* 81 MG PO SCH (09:28)
[2016-08-26] MEDS: Sertraline* 50 MG TAB PO SCH (09:28)
[2016-08-26] MEDS: Carvedilol TAB* 3.125 MG PO SCH ×2 (09:29→22:03)
[2016-08-26] MEDS: Cyanocobalamin TAB* 500 MCG PO SCH (09:29)
[2016-08-26] MEDS: Lisinopril TAB* 5 MG PO SCH (09:31)
[2016-08-26] MEDS: Spironolactone TAB* 25 MG PO SCH (09:32)
--- NOTE | 2016-08-26 10:29 | PN ---
Progress Note - Progress Note Date of Service: 08/26/16 SOAP: Subjective: [] He is oriented to hospital and stroke, no remember fever. Oriented to date. Denies pain. Depressed and not sure with current illness life is worth living. Reports paralysis on left since first stroke. Acetaminophen (Tylenol Tab*) 650 mg PO Q4HR PRN PRN Reason: PAIN Last Admin: 08/26/16 09:26 Dose: 650 mg Aspirin (Aspirin Low Dose Tab*) 81 mg PO DAILY [facility] Last Admin: 08/26/16 09:28 Dose: 81 mg Atorvastatin Calcium (Lipitor*) 10 mg PO DAILY [facility] Last Admin: 08/26/16 09:27 Dose: 10 mg Carvedilol (Coreg Tab*) 1.5625 mg PO BID [facility] Last Admin: 08/26/16 09:29 Dose: 1.5625 mg Cetirizine HCl (Zyrtec*) 10 mg PO QPM [facility] Last Admin: 08/25/16 18:22 Dose: 10 mg Cholecalciferol (Vitamin D Tab*) 1,000 units PO QAM [facility] Last Admin: 08/26/16 09:26 Dose: 1,000 units Cyanocobalamin (Vitamin B12 Tab*) 1,000 mcg PO DAILY [facility] Last Admin: 08/26/16 09:29 Dose: 1,000 mcg Docusate Sodium (Colace Cap*) 200 mg PO DAILY [facility] Last Admin: 08/26/16 09:27 Dose: 200 mg Heparin Sodium (Porcine) (Heparin Vial(*)) 5,000 units SUBCUT Q8HR [facility] Last Admin: 08/26/16 05:48 Dose: 5,000 units Sodium Chloride (Ns 0.9% 1000 Ml*) 1,000 mls @ 75 mls/hr IV PER RATE [facility] Last Admin: 08/26/16 05:11 Dose: 75 mls/hr Piperacillin Sod/Tazobactam (Sod 3.375 gm/ Sodium Chloride) 100 mls @ 25 mls/ hr IVPB 0030,0830,1630 [facility] Last Admin: 08/26/16 09:25 Dose: 25 mls/hr Latanoprost (Xalatan 0.005%*) 1 drop BOTH EYES BEDTIME [facility] Last Admin: 08/25/16 20:42 Dose: 1 drop Lisinopril (Prinivil Tab*) 2.5 mg PO DAILY [facility] Last Admin: 08/26/16 09:31 Dose: 2.5 mg Morphine Sulfate (Morphine Inj (Syringe)*) 2 mg IV Q6H PRN PRN Reason: PAIN - ABDOMINAL Omeprazole (Prilosec Cap*) 20 mg PO DAILY [facility] Last Admin: 08/26/16 09:27 Dose: 20 mg Ondansetron HCl (Zofran Odt Tab*) 4 mg PO Q8H PRN PRN Reason: NAUSEA/VOMITING Ondansetron HCl (Zofran Inj*) 4 mg IV Q8H PRN PRN Reason: NAUSEA Last Admin: 08/25/16 16:16 Dose: 4 mg Pharmacy Consult (Zosyn Per Pharmacy*) 1 note FOLLOW UP .ZOSYN PER PHARMACY [facility] Senna (Senokot Tab*) 1 tab PO BEDTIME [facility] Last Admin: 08/25/16 20:42 Dose: 1 tab Sertraline HCl (Zoloft*) 150 mg PO DAILY [facility] Last Admin: 08/26/16 09:28 Dose: 150 mg Spironolactone (Aldactone Tab*) 12.5 mg PO DAILY [facility] Last Admin: 08/26/16 09:32 Dose: 12.5 mg Objective: [] Vital Signs Temp Pulse Resp BP Pulse Ox 98.2 F 88 16 151/70 93 08/26/16 07:50 08/26/16 07:50 08/26/16 07:50 08/26/16 07:50 08/26/16 07:50 HEENT - pale, no oral lesions Decreased BS, CTA RRR s1s2 +BS, no pain on palpation today ext, no edema Neuro exam - left 1/5 strength. orientation as above. Assessment: []76 year old with long standing MDS and history of CVAs. Now with persistent fever and intermittent mental status changes. Today fever 101.2, appears at baseline MS. Plan: []1. Fevers. Question of OI given long standing neutropenia. Consultation from ID, check CT chest and consider holding antibiotics until source is clear. 2. MS changes. Variable and may be secondary to infection. Consider LP. 3. Left side weakness increased from prior documented exam, may have unmasking of prior infarct. 4. Depression. Discussed he has incurable disease, no aggressive care. Still need to maximize QOL. No change Sertraline. 5. MDS. counts stable at this time, drop in platelets likely second to fever. Follow.
[2016-08-26 10:50] LABS: Hypochromasia 1+; Neutrophil % 43 % (38-83); Polychromasia 1+; Reactive Lymph % 2 % (0-6)
[2016-08-26 10:51] LABS: Add Path Review? YES
--- NOTE | 2016-08-26 11:42 | RAD ---
Indication: Fever. CT of the chest performed without IV contrast administration. Coronal and sagittal constructed images were obtained. Inferior thyroid lobes are unremarkable. No mediastinal or hilar adenopathy is noted. The heart demonstrates no pericardial effusion. The trachea and major bronchi appear patent. Minimal pneumonitis is noted in the lower lobes posteriorly bilaterally. There may be small pleural effusions. Mild cardiomegaly is noted. The gallbladder demonstrates calcified gallstone. No pericholecystic fluid or wall thickening is identified. IMPRESSION: MINIMAL AREAS OF PNEUMONITIS IN THE POSTERIOR LUNG BASES WITH SMALL PLEURAL EFFUSIONS. CHOLELITHIASIS WITHOUT BILIARY DUCT DILATATION.
--- NOTE | 2016-08-26 15:05 | CONS ---
CONSULTATION REPORT: DATE OF CONSULT: 08/26/16 REQUESTING PHYSICIAN: Dr. Noland. CONSULTING SERVICE: Infectious Disease. REASON FOR CONSULT: Fever. IMPRESSION: 1. Two weeks of intermittent fever, occasional headache in the setting of myelodysplastic syndrome and prolonged neutropenia and pancytopenia. Blood and urine cultures are pending. Intrathoracic etiology is a consideration. At this time of year, Lyme is always on the differential, though he lacks other flu -like symptoms and does not appear to spend much time outdoors. Does have symptoms of aspiration, an aspiration pneumonia is a consideration. He has prolonged neutropenia so invasive fungal infection are a consideration. 2. History of stroke with left hemiparesis. 3. Coronary artery disease and history of coronary artery bypass grafting. RECOMMENDATIONS: Agree with Zosyn while awaiting his blood and urine cultures. We will get a CT of his chest today to evaluate for invasive fungal infection or aspiration type pneumonia. He does also endorse occasionally coughing or choking while eating, so aspiration is a consideration though he did not have any particular infiltrate on his chest x-ray. HISTORY OF PRESENT ILLNESS: This is a 76-year-old man with myelodysplastic syndrome, admitted with fever. He has felt occasional afternoon fevers most days of the week for about 10 days. It is associated with occipital headache without any vision change, numbness, or weakness. He has no neck or spine pain. No joint pain or stiffness. He does not get outdoors much given his overall functional status. Because of his fevers, he was seen in the ER on 01/30. His white count was 1.8, which was at baseline; the absolute neutrophil count was 700, which is about as his baseline. He had a chest x-ray that was unremarkable. CT of the abdomen and pelvis that showed cholelithiasis, no biliary duct dilation, no mass. He had a fever of 101 this morning. He has been on Zosyn since yesterday. He has no headache. He denies pain. He does occasionally cough or choke while eating or drinking though and has an occasional cough, but none worse in recent. PAST MEDICAL HISTORY: 1. Myelodysplastic syndrome. 2. History of stroke and left hemiparesis. 3. Coronary artery disease, status post CABG. 4. Hypertension. 5. Hyperlipidemia. 6. Spinal stenosis. 7. Obstructive sleep apnea. 8. Gastroesophageal reflux disease. 9. Gout. 10. Glaucoma. 11. Depression. MEDICATIONS: 1. Alprazolam p.r.n. 2. Tylenol. 3. Aspirin. 4. Lipitor. 5. Cetirizine. 6. Cholecalciferol. 7. Cyanocobalamin. 8. Heparin subcutaneous injection. 9. Lisinopril. 10. Omeprazole. 11. Zosyn 3.375 g every 8 hours by extended infusion. 12. Sertraline. 13. Spironolactone. ALLERGIES: No known drug allergies. FAMILY HISTORY: No recurrent infections. His mother of old age. Father in his 60s of coronary artery disease. SOCIAL HISTORY: He lives in [place] with his . He has no travel. No pets. No sick contacts. Does not get outdoors. REVIEW OF SYSTEMS: All negative except as noted above to full review of systems. PHYSICAL EXAM: Vital Signs: Temperature is 37, heart rate 88, respiratory rate 16, O2 sat 93% on room air, blood pressure 150/70. In general, he is awake , not in distress. Neurologic: He is oriented x2, does not know the date, but he follows commands. He has a left facial droop and left hemiparesis. HEENT: There is no conjunctival hemorrhage. Oropharynx without lesions. Neck: Supple without nuchal rigidity. Lymph Nodes: There is no cervical, supraclavicular, inguinal, axillary, or epitrochlear lymphadenopathy. Heart has regular rate and rhythm without murmurs, rubs, or gallops. Lungs are clear to auscultation bilaterally. Abdomen: Soft, nontender, and nondistended. There are bowel sounds present. Skin: There is no rash or splinter hemorrhages. Musculoskeletal: No spine tenderness to palpation or joint synovitis. LABORATORY DATA: White blood cell count 2, hemoglobin 8, platelets 62. Creatinine is 0.9. CRP 14. Urinalysis shows blood. Influenza PCR negative. Please see impressions and recommendations outlined above which I have discussed with Dr. Noland. Thank you for asking me to see Mr. Cramer in consultation. [id number]/[facility] #: [id number] MTDD
[2016-08-26] MEDS: Cetirizine* 10 MG TAB PO SCH (17:26)
[2016-08-26] MEDS: Senna TAB PO SCH (22:03)
[2016-08-26] MEDS: Latanoprost 0.005%* 2.5 ml BTL BOTH EYES SCH (22:04)
[2016-08-26] MEDS: Morphine INJ* 2 MG/ML 1 ML SYRINGE IV PRN (22:09)
[2016-08-27] MEDS: Heparin VIAL(*) 5000 UNITS/ML VIAL (FIVE THOUSAND) SUBCUT SCH ×3 (05:15→23:34)
[2016-08-27] MEDS: NS 0.9% 1000 ML* 1,000 ML IV SCH (07:49)
[2016-08-27] MEDS: Lisinopril TAB* 5 MG PO SCH (07:50)
[2016-08-27] MEDS: Omeprazole CAP* 20 MG PO SCH (07:50)
[2016-08-27] MEDS: Docusate CAP* 100 MG PO SCH (07:50)
[2016-08-27] MEDS: Carvedilol TAB* 3.125 MG PO SCH ×2 (07:51→23:33)
[2016-08-27] MEDS: Atorvastatin* 10 MG TAB PO SCH (07:51)
[2016-08-27] MEDS: Spironolactone TAB* 25 MG PO SCH (07:51)
[2016-08-27] MEDS: Aspirin Low Dose CHEW TAB* 81 MG PO SCH (07:51)
[2016-08-27] MEDS: Sertraline* 50 MG TAB PO SCH (07:52)
[2016-08-27] MEDS: Cholecalciferol TAB* 1000 UNITS PO SCH (07:53)
[2016-08-27] MEDS: Cyanocobalamin TAB* 500 MCG PO SCH (07:53)
[2016-08-27 09:04] LABS: Hematocrit 26 % (42-52); Hemoglobin 8.1 g/dl (14.0-18.0); Mean Corpuscular HGB Conc 32 g/dl (31-36); Mean Corpuscular Hemoglobin 26 pg (27-31); Mean Corpuscular Volume 84 fL (80-94); Mean Platelet Volume 10 um3 (7.4-10.4); Red Blood Count 3.06 10^6/ul (4.0-5.4); Red Cell Distribution Width 22 % (10.5-15); White Blood Count 1.6 10^3/ul (3.5-10.8)
[2016-08-27 09:09] LABS: Add Diff/Slide Review? Manual Diff Added; Comments Flag Yes
[2016-08-27 09:12] LABS: Albumin 3.6 g/dL (3.2-5.2); BUN/Creatinine Ratio 9.5 (8-20); Calcium 8.9 mg/dL (8.6-10.3); EGFR African American 113.7 (>60); EGFR Non-African American 88.4 (>60); Globulin 3.4 g/dL (2-4); Potassium 3.7 mmol/L (3.5-5.0); Total Bilirubin 0.5 mg/dL (0.2-1.0)
[2016-08-27 09:59] LABS: Neutrophil % 37 % (38-83); Reactive Lymph % 1 % (0-6)
[2016-08-27 10:00] LABS: Add Path Review? YES; Hypochromasia 1+
[2016-08-27] MEDS ORDERED: NS 0.9% 1000 ML* 1,000 ML IV SCH (10:43)
[2016-08-27] MEDS: Cetirizine* 10 MG TAB PO SCH (16:43)
[2016-08-27] MEDS: Senna TAB PO SCH (23:33)
[2016-08-27] MEDS: Latanoprost 0.005%* 2.5 ml BTL BOTH EYES SCH (23:33)
[2016-08-27] MEDS: Morphine INJ* 2 MG/ML 1 ML SYRINGE IV PRN (23:34)
[2016-08-27] MEDS: Acetaminophen TAB* 325 MG PO PRN (23:42)
[2016-08-28 06:10] LABS: Hematocrit 25 % (42-52); Hemoglobin 7.8 g/dl (14.0-18.0); Mean Corpuscular HGB Conc 31 g/dl (31-36); Mean Corpuscular Hemoglobin 26 pg (27-31); Mean Corpuscular Volume 84 fL (80-94); Mean Platelet Volume 11 um3 (7.4-10.4); Red Blood Count 2.96 10^6/ul (4.0-5.4); Red Cell Distribution Width 22 % (10.5-15); White Blood Count 2.7 10^3/ul (3.5-10.8)
[2016-08-28 06:14] LABS: Add Diff/Slide Review? Slide Review Added; Comments Flag Yes
[2016-08-28] MEDS: Heparin VIAL(*) 5000 UNITS/ML VIAL (FIVE THOUSAND) SUBCUT SCH ×3 (06:30→23:36)
[2016-08-28 07:17] LABS: Add Path Review? YES; Hypochromasia 2+; Immature Granulocytes 1 % (0-9); Metamyelocytes % 1 % (0-2); Neutrophil % 39 % (38-83); Reactive Lymph % 3 % (0-6)
[2016-08-28] MEDS: Docusate CAP* 100 MG PO SCH (08:43)
[2016-08-28] MEDS: Aspirin Low Dose CHEW TAB* 81 MG PO SCH (08:43)
[2016-08-28] MEDS: Cyanocobalamin TAB* 500 MCG PO SCH (08:43)
[2016-08-28] MEDS: Cholecalciferol TAB* 1000 UNITS PO SCH (08:43)
[2016-08-28] MEDS: Atorvastatin* 10 MG TAB PO SCH (08:43)
[2016-08-28] MEDS: Omeprazole CAP* 20 MG PO SCH (08:43)
[2016-08-28] MEDS: Sertraline* 50 MG TAB PO SCH (08:44)
[2016-08-28] MEDS: Carvedilol TAB* 3.125 MG PO SCH ×2 (08:44→19:38)
[2016-08-28] MEDS: Lisinopril TAB* 5 MG PO SCH (08:45)
[2016-08-28] MEDS: Spironolactone TAB* 25 MG PO SCH (08:46)
--- NOTE | 2016-08-28 10:11 | PN ---
Progress Note - Progress Note Date of Service: 08/28/16 SOAP: Subjective: []Better. AAO x 3. Pain is fine, has not been moving. No chills. Strength near baseline. Acetaminophen (Tylenol Tab*) 650 mg PO Q4HR PRN PRN Reason: PAIN Last Admin: 08/27/16 23:42 Dose: 650 mg Aspirin (Aspirin Low Dose Tab*) 81 mg PO DAILY [facility] Last Admin: 08/28/16 08:43 Dose: 81 mg Atorvastatin Calcium (Lipitor*) 10 mg PO DAILY [facility] Last Admin: 08/28/16 08:43 Dose: 10 mg Carvedilol (Coreg Tab*) 1.5625 mg PO BID [facility] Last Admin: 08/28/16 08:44 Dose: 1.5625 mg Cetirizine HCl (Zyrtec*) 10 mg PO QPM [facility] Last Admin: 08/27/16 16:43 Dose: 10 mg Cholecalciferol (Vitamin D Tab*) 1,000 units PO QAM [facility] Last Admin: 08/28/16 08:43 Dose: 1,000 units Cyanocobalamin (Vitamin B12 Tab*) 1,000 mcg PO DAILY [facility] Last Admin: 08/28/16 08:43 Dose: 1,000 mcg Docusate Sodium (Colace Cap*) 200 mg PO DAILY [facility] Last Admin: 08/28/16 08:43 Dose: 200 mg Heparin Sodium (Porcine) (Heparin Vial(*)) 5,000 units SUBCUT Q8HR [facility] Last Admin: 08/28/16 06:30 Dose: 5,000 units Piperacillin Sod/Tazobactam (Sod 3.375 gm/ Sodium Chloride) 100 mls @ 25 mls/ hr IVPB 0030,0830,1630 [facility] Last Admin: 08/28/16 08:40 Dose: 25 mls/hr Sodium Chloride (Ns 0.9% 1000 Ml*) 1,000 mls @ 0 mls/hr IV PER RATE [facility] PRN Reason: KVO Last Admin: 08/27/16 16:45 Dose: 10 mls/hr Latanoprost (Xalatan 0.005%*) 1 drop BOTH EYES BEDTIME [facility] Last Admin: 08/27/16 23:33 Dose: 1 drop Lisinopril (Prinivil Tab*) 2.5 mg PO DAILY [facility] Last Admin: 08/28/16 08:45 Dose: 2.5 mg Morphine Sulfate (Morphine Inj (Syringe)*) 2 mg IV Q6H PRN PRN Reason: PAIN - ABDOMINAL Last Admin: 08/27/16 23:34 Dose: 2 mg Omeprazole (Prilosec Cap*) 20 mg PO DAILY [facility] Last Admin: 08/28/16 08:43 Dose: 20 mg Ondansetron HCl (Zofran Odt Tab*) 4 mg PO Q8H PRN PRN Reason: NAUSEA/VOMITING Ondansetron HCl (Zofran Inj*) 4 mg IV Q8H PRN PRN Reason: NAUSEA Last Admin: 08/25/16 16:16 Dose: 4 mg Pharmacy Consult (Zosyn Per Pharmacy*) 1 note FOLLOW UP .ZOSYN PER PHARMACY [facility] Senna (Senokot Tab*) 1 tab PO BEDTIME [facility] Last Admin: 08/27/16 23:33 Dose: 1 tab Sertraline HCl (Zoloft*) 150 mg PO DAILY [facility] Last Admin: 08/28/16 08:44 Dose: 150 mg Spironolactone (Aldactone Tab*) 12.5 mg PO DAILY [facility] Last Admin: 08/28/16 08:46 Dose: 12.5 mg Objective: [] Vital Signs Temp Pulse Resp BP Pulse Ox 98.4 F 78 14 126/55 98 08/28/16 07:29 08/28/16 07:29 08/28/16 07:29 08/28/16 07:29 08/28/16 07:29 HEENT - pale, no oral lesions Decreased BS, CTA RRR s1s2 +BS, no pain on palpation today ext, no edema Neuro exam - left 1/5 strength. orientation as above. Assesment: 76 year old with MDS and history of CVA. Presents with fever and MS changes. Both improved on IV antibiotics. However, no source found. May have been viral illness. Plan: []1. Fevers. Question of OI given long standing neutropenia, viral illness, occult bacterial. Improving and will continue Zosyn through weekend. If doing well home Tuesday on po antibiotics, limited course. 2. MS changes. Improved last two days. 3. Will have PT evaluation, has been in bed since admission but mobile at home. 4. MDS. counts stable at this time, follow
[2016-08-28] MEDS: Cetirizine* 10 MG TAB PO SCH (17:18)
[2016-08-28] MEDS: Senna TAB PO SCH (19:38)
[2016-08-28] MEDS: Latanoprost 0.005%* 2.5 ml BTL BOTH EYES SCH (19:42)
[2016-08-28] MEDS: Acetaminophen TAB* 325 MG PO PRN (23:43)
[2016-08-29] MEDS: Heparin VIAL(*) 5000 UNITS/ML VIAL (FIVE THOUSAND) SUBCUT SCH ×3 (07:06→23:23)
--- NOTE | 2016-08-29 09:18 | PN ---
Subjective Date of Service: 08/29/16 Interval History: Patient seen this morning. Initially alert, denied any chest pain, SOB, coughing /choking with food. Reports feeling sweaty overnight. Through the interview he became visibly tired and began to doze off. Nursing states he was up for most of the night and a bit lethargic this morning which is similar to what happened yesterday. Family History: Unchanged from Admission Social History: Unchanged from Admission Past Medical History: Unchanged from Admission Objective Active Medications: Acetaminophen (Tylenol Tab*) 650 mg PO Q4HR PRN Aspirin (Aspirin Low Dose Tab*) 81 mg PO DAILY [facility] Atorvastatin Calcium (Lipitor*) 10 mg PO DAILY [facility] Carvedilol (Coreg Tab*) 1.5625 mg PO BID [facility] Cetirizine HCl (Zyrtec*) 10 mg PO QPM [facility] Cholecalciferol (Vitamin D Tab*) 1,000 units PO QAM [facility] Cyanocobalamin (Vitamin B12 Tab*) 1,000 mcg PO DAILY [facility] Docusate Sodium (Colace Cap*) 200 mg PO DAILY [facility] Heparin Sodium (Porcine) (Heparin Vial(*)) 5,000 units SUBCUT Q8HR [facility] Piperacillin Sod/Tazobactam (Sod 3.375 gm/ Sodium Chloride) 100 mls @ 25 mls/ hr IVPB 0030,0830,1630 [facility] Sodium Chloride (Ns 0.9% 1000 Ml*) 1,000 mls @ 0 mls/hr IV PER RATE [facility] Latanoprost (Xalatan 0.005%*) 1 drop BOTH EYES BEDTIME [facility] Lisinopril (Prinivil Tab*) 2.5 mg PO DAILY [facility] Morphine Sulfate (Morphine Inj (Syringe)*) 2 mg IV Q6H PRN Omeprazole (Prilosec Cap*) 20 mg PO DAILY [facility] Ondansetron HCl (Zofran Odt Tab*) 4 mg PO Q8H PRN Ondansetron HCl (Zofran Inj*) 4 mg IV Q8H PRN Pharmacy Consult (Zosyn Per Pharmacy*) 1 note FOLLOW UP .ZOSYN PER PHARMACY [facility] Senna (Senokot Tab*) 1 tab PO BEDTIME [facility] Sertraline HCl (Zoloft*) 150 mg PO DAILY [facility] Spironolactone (Aldactone Tab*) 12.5 mg PO DAILY [facility] Vital Signs 08/28/16 08/28/16 08/28/16 11:31 16:30 19:30 Temperature 99.1 F 99.3 F Pulse Rate 76 81 Respiratory 17 20 20 Rate Blood Pressure 114/55 132/65 (mmHg) O2 Sat by Pulse 98 96 96 Oximetry 08/29/16 07:43 Temperature 99.2 F Pulse Rate 77 Respiratory 15 Rate Blood Pressure 129/51 (mmHg) O2 Sat by Pulse 99 Oximetry Oxygen Devices in Use Now: None Appearance: Elderly M, laying in bed in NAD, slumped slightly to the left Eyes: No Scleral Icterus Ears/Nose/Mouth/Throat: Mucous Membranes Moist Neck: NL Appearance and Movements; NL JVP Respiratory: Symmetrical Chest Expansion and Respiratory Effort, Clear to Auscultation Cardiovascular: RRR, - - JAZZY Abdominal: NL Sounds; No Tenderness; No Distention Lymphatic: No Cervical Adenopathy Extremities: No Edema Skin: No Rash or Ulcers Neurological: - - L hemiplegia Result Diagrams: 08/28/16 05:41 08/27/16 07:55 Microbiology and Other Data: Microbiology 08/25/16 15:51 Aerobic Blood Culture - Preliminary Blood Venous No Growth Day 3 Anaerobic Blood Culture - Preliminary No Growth Day 3 Blood Culture - Final 08/25/16 18:00 Nasal Screen MRSA (PCR)(LILI) - Final Nasal Mrsa Negative Assess/Plan/Problems-Billing Assessment: Fever, AMS in a 76 yo M with hx of MDS, numerous strokes 1) Fever - no clear source identified, continue Zosyn for now 2) AMS - seems to have improved from admission, still a bit lethargic at times, unclear if this is due to not sleeping overnight 3) MDS - counts stable/improving 4) DVT PPx - HSQ
[2016-08-29] MEDS: Carvedilol TAB* 3.125 MG PO SCH ×2 (09:57→20:24)
[2016-08-29] MEDS: Docusate CAP* 100 MG PO SCH (09:57)
[2016-08-29] MEDS: Cholecalciferol TAB* 1000 UNITS PO SCH (09:57)
[2016-08-29] MEDS: Aspirin Low Dose CHEW TAB* 81 MG PO SCH (09:57)
[2016-08-29] MEDS: Cyanocobalamin TAB* 500 MCG PO SCH (09:57)
[2016-08-29] MEDS: Lisinopril TAB* 5 MG PO SCH (09:59)
[2016-08-29] MEDS: Spironolactone TAB* 25 MG PO SCH (10:00)
[2016-08-29] MEDS: Sertraline* 50 MG TAB PO SCH (10:01)
[2016-08-29] MEDS: Atorvastatin* 10 MG TAB PO SCH (10:01)
[2016-08-29] MEDS: Omeprazole CAP* 20 MG PO SCH (10:01)
[2016-08-29] MEDS: Cetirizine* 10 MG TAB PO SCH (17:34)
[2016-08-29] MEDS: Senna TAB PO SCH (20:24)
[2016-08-29] MEDS: Latanoprost 0.005%* 2.5 ml BTL BOTH EYES SCH (20:29)
[2016-08-30] MEDS: Heparin VIAL(*) 5000 UNITS/ML VIAL (FIVE THOUSAND) SUBCUT SCH ×3 (05:44→21:28)
[2016-08-30] MEDS: Cyanocobalamin TAB* 500 MCG PO SCH (08:57)
[2016-08-30] MEDS: Omeprazole CAP* 20 MG PO SCH (08:58)
[2016-08-30] MEDS: Docusate CAP* 100 MG PO SCH (08:58)
[2016-08-30] MEDS: Sertraline* 50 MG TAB PO SCH (08:58)
[2016-08-30] MEDS: Atorvastatin* 10 MG TAB PO SCH (08:58)
[2016-08-30] MEDS: Aspirin Low Dose CHEW TAB* 81 MG PO SCH (08:58)
[2016-08-30] MEDS: Cholecalciferol TAB* 1000 UNITS PO SCH (08:58)
[2016-08-30] MEDS: Carvedilol TAB* 3.125 MG PO SCH ×2 (08:59→21:27)
[2016-08-30] MEDS: Lisinopril TAB* 5 MG PO SCH (09:00)
[2016-08-30] MEDS: Spironolactone TAB* 25 MG PO SCH (09:05)
--- NOTE | 2016-08-30 10:18 | PN ---
Progress Note - Progress Note Date of Service: 08/30/16 SOAP: Subjective: CC: fever HPI: 76 year old man with MDS admitted with fever. No fever in 48 hours. His notes delayed swallowing and choking while swallowing. She feels he is physically better but less aware of what is happening around him. He denies pain or cough. Objective: [] Vital Signs Temp 36.4 C 08/30/16 07:46 Pulse 79 08/30/16 07:46 Resp 16 08/30/16 07:46 BP 137/78 08/30/16 07:46 Pulse Ox 99 08/30/16 07:46 Intake & Output 08/29/16 08/30/16 08/30/16 18:59 06:59 18:59 Intake Total 545 546 692 Balance 545 546 692 Intake: IV Fluids 224 NS (0.9%) 224 IVPB 106 108 ABX - ZOSYN 106 108 Oral 545 440 360 Other: Estimated Void Medium # Bowel Movements 1 0 Estimated Stool Amount Large # Voids 3 1 Gen:awake, no distress Neuro: alert, Ox1, answers some questions, follows commands HEENT:PERRL, MMM Neck:supple Heart:RRR no murmur Lungs:CTA BL Abd:+BS NTND soft Skin: no rash MSK: no spine tenderness Microbiology 08/25/16 15:51 Blood Venous Aerobic Blood Culture - Preliminary No Growth Day 4 08/25/16 15:51 Blood Venous Anaerobic Blood Culture - Preliminary No Growth Day 4 08/25/16 15:51 Blood Venous Blood Culture - Final 08/25/16 11:10 Blood Venous Aerobic Blood Culture - Preliminary No Growth Day 4 08/25/16 11:10 Blood Venous Anaerobic Blood Culture - Preliminary No Growth Day 4 08/25/16 11:10 Blood Venous Blood Culture - Final Assessment: 1. fever, aspiration pneumonia 2. aspiration 3. MDS with prolonged nuetropenia; no evidence of invasive fungal infection 4. pancytopenia Plan: 1. change zosyn to augmentin 500 mg po bid x5 more days 2. swallow evaluaition Discussed with Phoebe WAITE
[2016-08-30] MEDS ORDERED: FILGRASTIM-SNDZ* 480 MCG/0.8 ML SYRINGE SUBCUT ONE (11:09)
[2016-08-30 11:24] LABS: Hematocrit 26 % (42-52); Hemoglobin 8.1 g/dl (14.0-18.0); Mean Corpuscular HGB Conc 31 g/dl (31-36); Mean Corpuscular Hemoglobin 26 pg (27-31); Mean Corpuscular Volume 84 fL (80-94); Mean Platelet Volume 10 um3 (7.4-10.4); Red Blood Count 3.08 10^6/ul (4.0-5.4); Red Cell Distribution Width 22 % (10.5-15); White Blood Count 2.1 10^3/ul (3.5-10.8)
[2016-08-30 11:27] LABS: Add Diff/Slide Review? Manual Diff Added; Comments Flag Yes
[2016-08-30 11:48] LABS: Albumin 3.6 g/dL (3.2-5.2); BUN/Creatinine Ratio 15.1 (8-20); Calcium 8.9 mg/dL (8.6-10.3); EGFR African American 110.6 (>60); Globulin 3.5 g/dL (2-4); Potassium 3.6 mmol/L (3.5-5.0); Total Bilirubin 0.6 mg/dL (0.2-1.0); Total Protein 7.1 g/dL (6.4-8.9)
[2016-08-30 12:01] LABS: Microcytosis 1+; Neutrophil % 57 % (38-83)
[2016-08-30 12:02] LABS: Add Path Review? YES; Basophilic Stippling 1+
[2016-08-30] MEDS: Cetirizine* 10 MG TAB PO SCH (18:24)
[2016-08-30] MEDS: Acetaminophen TAB* 325 MG PO PRN (21:27)
[2016-08-30] MEDS: Amoxicillin/Clavulanate TAB* 875 MG PO SCH (21:27)
[2016-08-30] MEDS: Senna TAB PO SCH (21:28)
[2016-08-30] MEDS: Latanoprost 0.005%* 2.5 ml BTL BOTH EYES SCH (21:28)
[2016-08-31] MEDS: Heparin VIAL(*) 5000 UNITS/ML VIAL (FIVE THOUSAND) SUBCUT SCH (05:38)
[2016-08-31 07:53] VITALS: BP 122/54
[2016-08-31] MEDS: Atorvastatin* 10 MG TAB PO SCH (09:08)
[2016-08-31] MEDS: Aspirin Low Dose CHEW TAB* 81 MG PO SCH (09:08)
[2016-08-31] MEDS: Omeprazole CAP* 20 MG PO SCH (09:08)
[2016-08-31] MEDS: Sertraline* 50 MG TAB PO SCH (09:08)
[2016-08-31] MEDS: Cyanocobalamin TAB* 500 MCG PO SCH (09:08)
[2016-08-31] MEDS: Cholecalciferol TAB* 1000 UNITS PO SCH (09:09)
[2016-08-31] MEDS: Docusate CAP* 100 MG PO SCH (09:09)
[2016-08-31] MEDS: Amoxicillin/Clavulanate TAB* 875 MG PO SCH (09:09)
[2016-08-31] MEDS: Carvedilol TAB* 3.125 MG PO SCH (09:10)
[2016-08-31] MEDS: Spironolactone TAB* 25 MG PO SCH (09:11)
[2016-08-31] MEDS: Lisinopril TAB* 5 MG PO SCH (09:11)
--- NOTE | 2016-09-03 02:29 | DS ---
DISCHARGE SUMMARY: DATE OF ADMISSION: 08/25/16 DATE OF DISCHARGE: 08/31/16 ATTENDING PHYSICIAN: Dr. Noland * (DICTATED BY MARIANN LEACH) PRINCIPAL DIAGNOSES: 1. Fever. 2. Longstanding chronic febrile neutropenia. 3. Pneumonia. 4. Chronic severe myelodysplastic syndrome. 5. History of severe depression. 6. Status post cerebrovascular accident. DISCHARGE MEDICATIONS: As follows: 1. Zofran 4 mg as needed every 8 hours for nausea. 2. Milk of magnesia 30 mL p.o. daily as needed. 3. Tylenol 650 mg as needed for fever. 4. Fleet's enema as needed for constipation. 5. Dulcolax suppository 10 mg P.R. every 72 hours as needed for constipation. 6. Zoloft 150 mg p.o. daily. 7. Prilosec 20 mg daily. 8. Vitamin D 1000 International Units daily. 9. Lipitor 10 mg p.o. daily. 10. Aspirin 81 mg p.o. daily. 11. Travoprost 0.004% ophthalmic 1 drop both eyes at bedtime. 12. Senokot 1 tab daily. 13. MiraLAX 17 g p.o. daily. 14. Lisinopril 5 mg one half tab p.o. daily. 15. Colace 200 mg p.o. daily. 16. Claritin 10 mg p.o. daily. 17. Carvedilol 1.5625 mg p.o. twice daily. 18. Spironolactone 12.5 mg p.o. daily. 19. Vitamin B12 1000 mcg p.o. daily. 20. Warfarin 4 mg alternating with 2 mg on only. 21. Neupogen 480 mcg Tuesday, Tuesday and Tuesday. 22. Augmentin 875 mg p.o. twice daily. The Neupogen and the Augmentin were prescribed to the [facility]. HOSPITAL COURSE: The patient was admitted to the hospital after having been seen in the emergency room for significant fevers and altered mental status. He had no obvious specific source for fever. He did get a chest x-ray as a fever workup and was found to have a pneumonia. Subsequent CT scan of the chest revealed minimal areas of pneumonitis in the posterior lungs with a small pleural effusion. In addition, the patient did receive a consult from Dr. Florentino Romero for Infectious Disease, who evaluated him for intermittent fevers over the past 2 weeks given his previous history and had recommended that he be treated as a stepdown outpatient with Augmentin 875 mg b.i.d. He will follow up in the office in approximately [address] Noland. During his hospital course, he did receive Zosyn, broad-based IV antibiotic therapy along with panculturing on the day of his admission. His past medical history was also delineated in the consultation note under Dr. Romero, which additionally added hyperlipidemia, spinal stenosis, obstructive sleep apnea, gastroesophageal reflux disease and history of gout. He was status post coronary bypass remotely and status post CABG. The patient will follow up in approximately [address] Noland for followup. He was afebrile and vital signs were stable on the day of his discharge. MARIANN LEACH [id number]/[facility] #: [id number] DIEGO
== END 2016-08-31 13:00 | DRG 178 ==
LOC: ED 10:15 → MED 12:59 → ED 14:44
PROVIDERS: ADMIT Internal Medicine Hematology & Oncology; ATTEND Internal Medicine Hematology & Oncology
DX: J69.0 Pneumonitis due to inhalation of food and vomit (principal); I69.354 Hemiplegia and hemiparesis following cerebral infarction affecting left non-dominant side; D61.818 Other pancytopenia; D46.9 Myelodysplastic syndrome, unspecified; I10 Essential (primary) hypertension; K21.9 Gastro-esophageal reflux disease without esophagitis; I25.10 Atherosclerotic heart disease of native coronary artery without angina pectoris; E78.00 Pure hypercholesterolemia, unspecified; I44.7 Left bundle-branch block, unspecified; G47.30 Sleep apnea, unspecified; N40.0 Benign prostatic hyperplasia without lower urinary tract symptoms; H40.9 Unspecified glaucoma; M48.06 Spinal stenosis, lumbar region; F32.9 Major depressive disorder, single episode, unspecified; R40.2412 Glasgow coma scale score 13-15, at arrival to emergency department; Z66 Do not resuscitate; K80.20 Calculus of gallbladder without cholecystitis without obstruction; M10.9 Gout, unspecified; Z91.013 Allergy to seafood; Z91.011 Allergy to milk products; Z91.018 Allergy to other foods; Z91.09 Other allergy status, other than to drugs and biological substances; Z85.46 Personal history of malignant neoplasm of prostate; Z85.830 Personal history of malignant neoplasm of bone; Z87.442 Personal history of urinary calculi; Z95.1 Presence of aortocoronary bypass graft; Z90.79 Acquired absence of other genital organ(s); Z98.49 Cataract extraction status, unspecified eye; Z82.49 Family history of ischemic heart disease and other diseases of the circulatory system; Z86.19 Personal history of other infectious and parasitic diseases; Z72.89 Other problems related to lifestyle; Z87.891 Personal history of nicotine dependence
CPT/HCPCS: 36415; 71010; 71250; 74177; 80053; 80076; 81003; 81015; 82150; 83605; 83690; 83735; 84484; 85025; 85060; 85384; 85610; 85652; 85730; 86140; 87040; 87502; 87641; 93005; 94660; 99222; 99232; 99238; A9270-GY; J1644; J2270; J2405; J2543; Q5101 ZA; Q9967

== ENCOUNTER 2016-10-06 15:17 | Inpatient (IN) | payer OTHER, MEDICARE ==
--- NOTE | 2016-10-06 17:05 | ED ---
Head Injury - HPI Summary HPI Summary: Patient presents to the ED s/p 1 hour ago. He states his hand slipped on the handle going into the restroom he fell onto his left side and hit his head posteriorly. He is usually wheelchair bound, but states he attempted to get up to got the restroom without staff this morning. Denies LOC. Denies confusion or memory loss after the accident, but notes to approximately 12 strokes and has AMS intermittently. N/V s/p accident x 1. He is endorsing 2/10 pain in his left hip which is internally rotated on exam. However, he states he is unable to straighten at the hip. Family at bedtime state d/t his strokes, he has had left sided weakness and numbness. Denies wanting any medications for pain. He is currently taking Coumadin and ASA. There is small hematoma on the posterior scalp without laceration or lesions. Hip is internally rotated and is unable to be straightened or manipulated on exam. - History Of Current Complaint Chief Complaint: EDExtremityLower Stated Complaint: FALL Time Seen by Provider: 10/06/16 15:51 Hx Obtained From: Patient Mechanism Of Injury: Fall From A Standing Position Onset/Duration: Started Hours Ago Onset of Pain: Immediate Severity Currently: Mild Severity Initially: Mild Pain Intensity: 2 Pain Scale Used: 0-10 Numeric Location of Head Injury: Occipital Location: Discrete At: - left hip Aggravating Factor(s): Movement Associated Signs And Symptoms: Nausea, Vomiting Anticoagulant Therapy: Coumadin, ASA, Blood Thinners - Risk Factors SDH Risk Factor: Male, Anticoagulent Use, Elderly - Allergies/Home Medications Allergies/Adverse Reactions: Allergies Allergy/AdvReac Type Severity Reaction Status Date / Time Shellfish Allergy Allergy Severe Airway Verified 08/25/16 10:30 Obstruction Lactose Intolerance (GI) Allergy GI Upset Verified 08/25/16 10:30 walnuts Allergy Intermediate Airway Uncoded 08/25/16 10:30 Obstruction tree pollen Allergy Sneezing Uncoded 08/25/16 10:32 Home Medications: Home Medications Sodium Phosphate ADULT ENEMA* [Fleet Enema*] 1 enema ME Q72H PRN 10/06/16 [ History Confirmed 10/06/16] Warfarin TAB(*) [Coumadin TAB(*)] 4 mg PO SUWEFR 10/06/16 [History Confirmed ] PMH/Surg Hx/FS Hx/Imm Hx Previously Healthy: No - see below Endocrine/Hematology History: Reports: Hx Anticoagulant Therapy, Hx Bone Marrow Disease - myelodysplastic syndrome Denies: Hx Diabetes Cardiovascular History: Reports: Hx Angina, Hx Coronary Artery Disease, Hx Hypercholesterolemia, Hx Hypertension - ON MEDS, Hx Syncope, Other Cardiovascular Problems/Disorders - LBBB Denies: Hx Congestive Heart Failure, Hx Pacemaker/ICD Respiratory History: Reports: Hx Sleep Apnea - pt states this may be new to him , unsure. Denies: Hx Asthma, Hx Chronic Obstructive Pulmonary Disease (COPD) GI History: Reports: Hx Gastroesophageal Reflux Disease, Other GI Disorders - GERD History: Reports: Hx Benign Prostatic Hyperplasia, Hx Kidney Stones, Hx Renal Disease - KIDNEY STONES, Other Problems/Disorders - KIDNEY STONES,BPH Denies: Hx Dialysis Musculoskeletal History: Reports: Hx Back Problems, Other Musculoskeletal History - Lumbar spinal stenosis Sensory History: Reports: Hx Contacts or Glasses, Hx Glaucoma Denies: Hx Cataracts, Hx Hearing Aid Opthamlomology History: Reports: Hx Contacts or Glasses, Hx Glaucoma Denies: Hx Cataracts Neurological History: Reports: Other Neuro Impairments/Disorders - lumbar stenosis Psychiatric History: Reports: Hx Depression Denies: Hx Panic Disorder - Cancer History Cancer Type, 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 QUADRUPAL BYPASS-TONSILS - Immunization History Date of Tetanus Vaccine: UTD Date of Influenza Vaccine: UTD Hx Pertussis Vaccination: No Immunizations Up to Date: Unable to Obtain/Confirm Infectious Disease History: No Infectious Disease History: Reports: Hx Shingles - 2009 Denies: Traveled Outside the [place] in Last 30 Days - Family History Known Family History: Positive: Cardiac Disease - Social History Occupation: Retired Lives: At [facility] Alcohol Use: Occasionally Alcohol Amount: 1 drink per week Hx Substance Use: No Substance Use Type: Reports: None Hx Tobacco Use: Yes Smoking Status (MU): Former Smoker Type: Cigarettes Have You Smoked in the Last Year: No Review of Systems Constitutional: Negative Eyes: Negative Cardiovascular: Negative Respiratory: Negative Gastrointestinal: Negative Positive: no symptoms reported, see HPI Positive: Arthralgia, Myalgia - left hip pain Skin: Negative Neurological: Negative All Other Systems Reviewed And Are Negative: Yes Physical Exam Triage Information Reviewed: Yes Vital Signs On Initial Exam: Initial Vitals Temp Pulse Resp BP Pulse Ox 98.4 F 70 18 130/69 97 10/06/16 15:45 10/06/16 15:45 10/06/16 15:45 10/06/16 15:45 10/06/16 15:45 Vital Signs Reviewed: Yes Appearance: Positive: Well-Appearing, Well-Nourished Skin: Positive: Warm, Skin Color Reflects Adequate Perfusion Head/Face: Positive: Normal Head/Face Inspection Eyes: Positive: EOMI, TERI, Conjunctiva Clear Neck: Positive: Supple, No Lymphadenopathy Respiratory/Lung Sounds: Positive: Clear to Auscultation, Breath Sounds Present Cardiovascular: Positive: Normal, RRR, Pulses are Symmetrical in both Upper and Lower Extremities Musculoskeletal: Positive: Pain @ - left hip. hip is internally rotated on physical exam without ability to straighten the leg. Neurological: Positive: Sensory/Motor Intact, Alert, Oriented to Person Place, Time, Speech Normal Psychiatric: Positive: Normal AVPU Assessment: Alert - Sabrina Coma Scale Best Eye Response: 4 - Spontaneous Best Motor Response: 6 - Obeys Commands Best Verbal Response: 5 - Oriented Coma Scale Total: 15 Diagnostics - Vital Signs Vital Signs Temp Pulse Resp BP Pulse Ox 10/06/16 15:45 98.4 F 70 18 130/69 97 - Laboratory Lab Statement: Any lab studies that have been ordered have been reviewed, and results considered in the medical decision making process. Head Injury Course/Dx Course Of Treatment: Patient is A&O x 3. S/p fall, he notes to left hip pain, but denies any head pain. D/t head injury, blood thinners and N/V, patient sent to CT brain to assess for any bleed. Hip and pelvis xray show fracture of left femoral neck. Dr. Pearl called at 6:15pm who suggests NPO status at midnight, femur xray and will likely take to OR tomorrow. MARIANN Akins called at 6:20p who accepts patient to be admitted to hospitalist service under Dr. Wheeler. Will await INR and will call Dr. Pearl back to evaluate status of surgery. Spoke with the family who is concerned d/t his high risk of stroke. Family member very adament about being present for all conversations from here moving forward. Patient requesting his PCP be called and made aware that he is here. - Diagnoses Differential Diagnosis/HQI/PQRI: Concussion With LOC, Concussion Without LOC, Other - hip pain Provider Diagnoses: Femoral neck fracture, Head injury Discharge - Discharge Plan Condition: Stable Disposition: ADMITTED TO [facility] Referrals: Mattie Drew MD [Primary Care Provider] -
--- NOTE | 2016-10-06 17:23 | RAD ---
HISTORY: Trauma, anticoagulation COMPARISONS: August 16, 2016l TECHNIQUE: Multiple contiguous axial CT scans were obtained of the head without intravenous contrast. FINDINGS: HEMORRHAGE/INFARCT: There is no hemorrhage or acute infarct. MASSES/SHIFT: There is no mass or shift. EXTRA-AXIAL SPACES: There are no extra-axial fluid collections. SULCI AND VENTRICLES: The sulci and ventricles are normal in size and position for the patient's stated age. CEREBRUM: Again noted is multifocal encephalitis are consistent with remote infarct. There is diffuse hyperattenuation attenuation of the periventricular and subcortical white matter BRAINSTEM: There are no focal parenchymal abnormalities. CEREBELLUM: There are no focal parenchymal abnormalities. VESSELS: The vessels are grossly normal. PARANASAL SINUSES: The paranasal sinuses are clear. ORBITS: The orbits are unremarkable. BONES AND SOFT TISSUE: No bone or soft tissue abnormalities are noted. OTHER: None IMPRESSION: AGAIN NOTED IS CHRONIC SMALL VESSEL ISCHEMIC CHANGE WITH MULTIPLE CHRONIC INFARCTS. NO ACUTE INTRACRANIAL PATHOLOGY.
--- NOTE | 2016-10-06 17:35 | RAD ---
HISTORY: Status post fall with hip pain COMPARISONS: February 04, 2015 VIEWS: 3, Frontal view of the pelvis with frontal and frog-leg views of the left hip FINDINGS: BONE DENSITY: Normal. BONES: There is a nondisplaced fracture of left femoral neck. 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 ALIGNMENT: There is no dislocation. SOFT TISSUES: Unremarkable. OTHER FINDINGS: None. IMPRESSION: NONDISPLACED FRACTURE OF THE LEFT FEMORAL NECK
[2016-10-06] MEDS ORDERED: Morphine INJ* 2 MG/ML 1 ML CARPUJECT IV PRN (18:48)
[2016-10-06] MEDS ORDERED: Ondansetron INJ* 2 MG/ML VIAL IV PRN (18:48)
[2016-10-06] MEDS ORDERED: Morphine INJ* 2 MG/ML 1 ML CARPUJECT IV ONE (18:52)
[2016-10-06 19:09] LABS: ALT 13 U/L (7-52); Albumin 3.7 g/dL (3.2-5.2); Alkaline Phosphatase 171 U/L (34-104); BUN/Creatinine Ratio 20.5 (8-20); Blood Urea Nitrogen 15 mg/dL (6-24); C Reactive Protein 30.65 mg/L (< 5.00); CO2 Carbon Dioxide 24 mmol/L (22-32); Calcium 9.3 mg/dL (8.6-10.3); Chloride 104 mmol/L (101-111); Comments Flag Yes; EGFR African American 133.6 (>60); EGFR Non-African American 103.9 (>60); Glucose 105 mg/dL (70-100); Hematocrit 28 % (42-52); Hemoglobin 8.7 g/dl (14.0-18.0); Mean Corpuscular HGB Conc 31 g/dl (31-36); Mean Corpuscular Hemoglobin 25 pg (27-31); Mean Corpuscular Volume 80 fL (80-94); Mean Platelet Volume 11 um3 (7.4-10.4); Red Blood Count 3.47 10^6/ul (4.0-5.4); Sodium 136 mmol/L (133-145); Total Protein 7.7 g/dL (6.4-8.9); White Blood Count 24.8 10^3/ul (3.5-10.8)
[2016-10-06 19:11] LABS: Add Diff/Slide Review? Slide Review Added; Red Cell Distribution Width 24 % (10.5-15)
[2016-10-06 19:12] LABS: Anion Gap 8 mmol/L (2-11)
[2016-10-06 19:45] LABS: Immature Granulocytes 15 % (0-9); Metamyelocytes % 2 % (0-2); Neutrophil % 80 % (38-83); Polychromasia 1+
--- NOTE | 2016-10-06 20:50 | RAD ---
HISTORY: Left hip fracture COMPARISONS: October 06, 2016 VIEWS: 5, Frontal and lateral views of the left femur FINDINGS: Evaluation is somewhat limited by positioning. BONE DENSITY: There is diffuse osteopenia. BONES: Again noted is a nondisplaced fracture of the left femoral neck. JOINTS: There is osteoarthritis of the left hip and knee ALIGNMENT: There is no dislocation. SOFT TISSUES: Unremarkable. OTHER FINDINGS: None. IMPRESSION: NONDISPLACED FRACTURE OF THE LEFT FEMORAL NECK.
--- NOTE | 2016-10-06 20:52 | RAD ---
HISTORY: Left hip fracture COMPARISONS: August 16, 2016 VIEWS:1: Single frontal portable view of the chest at 8:08 PM FINDINGS: LINES AND TUBES: None. CARDIOMEDIASTINAL SILHOUETTE: The cardiomediastinal silhouette is stable. PLEURA: The costophrenic angles are sharp. No pleural abnormalities are noted. LUNG PARENCHYMA: The lungs are clear. ABDOMEN: The upper abdomen is clear. There is no subphrenic gas. BONES AND SOFT TISSUES: The patient is status post median sternotomy. IMPRESSION: NO ACTIVE CARDIOPULMONARY DISEASE.
[2016-10-06] MEDS: Carvedilol TAB* 3.125 MG PO SCH (21:20)
[2016-10-06] MEDS: Senna TAB PO SCH (21:20)
[2016-10-06] MEDS: Latanoprost 0.005%* 2.5 ml BTL BOTH EYES SCH (21:20)
[2016-10-06] MEDS: oxyCODONE/Acetamin 5/325 MG* TAB PO PRN (23:57)
--- NOTE | 2016-10-07 02:02 | HP ---
CC: Dr. Drew; Dr. Pearl * ADMISSION HISTORY AND PHYSICAL: DATE OF ADMISSION: 10/06/16 PRIMARY CARE PROVIDER: Dr. Drew. CONSULTING ORTHOPEDIC SURGEON: Dr. Pearl. ADMITTING PROVIDER: MARIANN Galan SUPERVISING PHYSICIAN: Marin Wheeler MD * (DICTATED BY MARIANN GALAN) CHIEF COMPLAINT: Fall with head and hip pain. 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 The patient attempted to ambulate on his own to go to the bathroom as he did not want to wait for an aide for assistance, although he is aware that his balance is poor and generally considered nearly wheelchair bound. On his way to the restroom, he fell and hit his head, but did not lose consciousness and landed on his right hip. He denies any headache at this time or visual changes. He has had extreme hip pain since the time of fall and has been unable to straighten his leg secondary to pain. X-ray in the emergency department demonstrated a left femoral neck fracture and Orthopedic Surgery has been made aware of his admission. The patient reports that his chronic medical conditions are well controlled and he denies any recent illness. He specifically denies chest pain, shortness of breath, abdominal pain, nausea, vomiting, or palpitations. He states that he did not experience any preceding dizziness, chest pain, or palpitations to his fall and was secondary to weakness as a result of prior CVAs. In regards to the patient's functional status, he is nearly wheelchair bound and otherwise sedentary. Again, he denies any recent cardiac symptoms. His last echocardiogram was completed in May of this year, which showed an EF of 40 to 45% and some mild aortic stenosis. Last stress test from 2014 demonstrated lateral wall ischemia with evidence of reversibility. At that time , medical management was elected and the patient did not undergo cardiac catheterization. HOME MEDICATIONS: 1. Acetaminophen 650 mg p.o. q.4 hours as needed for pain or fever. 2. Aspirin 81 mg p.o. daily. 3. Atorvastatin 10 mg p.o. daily. 4. Dulcolax suppository 10 mg per rectum every 72 hours as needed for constipation. 5. Carvedilol half of a 3.125 mg tablet taken by mouth twice daily. 6. Vitamin B12 1000 mcg p.o. daily. 7. Docusate 200 mg p.o. daily. 8. Neupogen 480 mcg given Tuesday, Tuesday, Tuesday. 9. Lisinopril 2.5 mg p.o. daily. 10. Loratadine 10 mg p.o. daily. 11. Milk of magnesia 30 mL p.o. q.72 hours as needed for his constipation. 12. Omeprazole 20 mg p.o. daily. 13. Zofran 4 mg p.o. q.8 hours as needed for nausea. 14. MiraLAX 17 g p.o. daily. 15. Senna 1 tablet p.o. at bedtime. 16. Sertraline 150 mg p.o. daily. 17. Fleet enemas 1 enema per rectum q.72 hours as needed for constipation. 18. Spironolactone 12.5 mg p.o. daily. 19. Travatan 0.004% solution 1 drop in both eyes at bedtime. 20. Coumadin take 2 mg p.o. on Tuesday, Tuesday, , and Tuesday and 4 on Tuesday, Tuesday, Tuesday. PAST MEDICAL HISTORY: 1. 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 2. Myelodysplastic syndrome, currently managed with Neupogen and as needed transfusions. 3. 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 4. Hypertension. 5. Hyperlipidemia. 6. Obstructive sleep apnea, compliant with BiPAP use. 7. GERD. PAST SURGICAL HISTORY: CABG. SOCIAL HISTORY: The patient is a resident at [facility]. He is a former smoker and consumes alcohol occasionally. REVIEW OF SYSTEMS: As noted above in HPI. All other systems reviewed and considered negative. PHYSICAL EXAMINATION GENERAL: This is a pleasant and slightly anxious appearing elderly gentleman, lying in a hospital stretcher. VITAL SIGNS: Temperature 98.4 degrees Fahrenheit, pulse 70 beats per minute, respiratory rate 18 per minute, oxygen saturation 97% on room air, and blood pressure 130/69 mmHg. HEENT: Head is normocephalic, atraumatic. Mucous membranes are pink and moist. RESPIRATORY: Lungs are clear to auscultation without wheezes, crackles, or rhonchi. CARDIOVASCULAR: Heart has a regular rate and rhythm without murmurs, rubs, or gallops. ABDOMEN: Soft and nontender to palpation. EXTREMITIES: No edema appreciated. Left leg, he has his hip flexed and slightly externally rotated, which he states is a comfortable position. SKIN: Limited exam, shows no concerning rashes or lesions. PSYCH: The patient is alert and appropriately oriented and mood is appropriate to the situation. DIAGNOSTIC STUDIES/LAB DATA: CBC, comprehensive metabolic panel, CRP, INR and lactic acid are all pending at this time. IMAGIN. CT of the brain shows no acute changes, there is evidence of old infarct and chronic white matter ischemic changes. 2. X-ray of the hip and pelvis demonstrates a left femoral neck fracture, which is nondisplaced. Review of echocardiogram from May 2016 shows an ejection fraction of 40% to 45%. ASSESSMENT AND PLAN: This is a 76-year-old gentleman with history of multiple cerebrovascular accidents with presumed ischemic cardiomyopathy with last EF of 40% to 45%, myelodysplastic syndrome, hypertension, hyperlipidemia, obstructive sleep apnea, who sustained a mechanical fall, resulting in a left femoral neck fracture. The patient is subsequently being admitted to the hospital for appropriate treatment. 1. Left femoral neck fracture - orthopedic surgeon, Dr. Pearl, has been notified of the patient's presence from the emergency department. We will plan to make him n.p.o. at this time with anticipated surgery tomorrow. He is chronically anticoagulated on Coumadin; however, and his INR is still pending. The patient is at high risk for recurrent cerebrovascular accident and depending on timing of surgery and comfort level of the surgeon, the patient should likely be bridged on Lovenox if there will be a delay while waiting for his INR to normalize. In terms of patient's preoperative risk assessment, his chronic medical conditions at this point are stable and the patient has no acute symptoms that require further optimization prior to surgery. His RCRI score is 3, placing him at high risk with greater than 11% chance of complications. Recommend continuing all home medications at this time with the exception of his lisinopril, which will be held. Again, all labs as well as the chest x-ray and EKG are pending at this time and will need to be reviewed before proceeding to the operating room. We plan to discuss further with Surgery once results are available for review. 2. History of cerebrovascular accident with residual left-sided weakness - the patient is nearly wheelchair bound at baseline and chronically anticoagulated on Coumadin for what is presumed to be history of embolic cerebrovascular accident. Again, he is a high risk patient for perioperative complications and should be bridged with Lovenox while his Coumadin is held. 3. Myelodysplastic syndrome - the patient is managed by Hematology with the Neupogen every other day and transfusions as necessary. Last labs from just 2 weeks ago show a white blood cell count of 1700 and hemoglobin of 8.4. Repeat labs are pending at this time. 4. Hypertension - the patient is normotensive in the emergency department and plan to continue all antihypertensives with the exception of his lisinopril perioperatively. 5. Obstructive sleep apnea - the patient will be continued on BiPAP during his hospital stay. 6. Ischemic cardiomyopathy with last EF of 40% to 45% - the patient is asymptomatic and stable without signs of acute heart failure exacerbation - no further optimization can be accomplished at this time. 7. Code status. The patient is full code with a signed MOLST form. 8. Healthcare proxy is the patient's , [place]. 9. DVT prophylaxis - the patient is chronically anticoagulated on Coumadin with INR pending and he will be bridged on Lovenox after discussion with Surgery. DISPOSITION: The patient is being admitted to inpatient status with anticipated length of stay to be greater than 2 midnights. Possible surgical intervention for tomorrow, but labs, chest x-ray and EKG are pending at this time and still require review. MARIANN GALAN [id number]/[facility] #: [id number] [place]
[2016-10-07 06:53] LABS: Hematocrit 24 % (42-52); Hemoglobin 7.4 g/dl (14.0-18.0); Mean Corpuscular HGB Conc 31 g/dl (31-36); Mean Corpuscular Hemoglobin 25 pg (27-31); Mean Corpuscular Volume 80 fL (80-94); Mean Platelet Volume 10 um3 (7.4-10.4); Red Blood Count 2.96 10^6/ul (4.0-5.4)
[2016-10-07 07:02] LABS: Comments Flag Yes
[2016-10-07 07:03] LABS: Red Cell Distribution Width 23 % (10.5-15)
[2016-10-07 07:05] LABS: BUN/Creatinine Ratio 16.7 (8-20); Calcium 8.1 mg/dL (8.6-10.3); EGFR African American 135.8 (>60); EGFR Non-African American 105.6 (>60); Potassium 3.4 mmol/L (3.5-5.0)
[2016-10-07] MEDS: NS 0.9% 1000 ML* 1,000 ML IV SCH ×2 (09:20→21:55)
[2016-10-07] MEDS: Sertraline* 50 MG TAB PO SCH (09:21)
[2016-10-07] MEDS: Cetirizine* 10 MG TAB PO SCH (09:22)
[2016-10-07] MEDS: Atorvastatin* 10 MG TAB PO SCH (09:22)
[2016-10-07] MEDS: oxyCODONE/Acetamin 5/325 MG* TAB PO PRN ×2 (09:22→13:57)
[2016-10-07] MEDS: Docusate CAP* 100 MG PO SCH (09:22)
[2016-10-07] MEDS: Spironolactone TAB* 25 MG PO SCH (09:23)
[2016-10-07] MEDS: Omeprazole CAP* 20 MG PO SCH (09:23)
[2016-10-07] MEDS: Carvedilol TAB* 3.125 MG PO SCH ×2 (09:23→23:46)
[2016-10-07] MEDS: Aspirin Low Dose CHEW TAB* 81 MG PO SCH (10:20)
[2016-10-07] MEDS: Polyethylene Glycol 3350* 17 GM PACKET PO SCH (10:20)
--- NOTE | 2016-10-07 10:35 | HP ---
CC: Primary Care Physician, Mattie Drew MD * HISTORY AND PHYSICAL: DATE OF SERVICE: 10/07/16 ATTENDING: Autumn Pearl MD CHIEF COMPLAINT: Left hip pain as well as head pain. 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 He was brought to the ER due to extreme pain. He was diagnosed with a left femoral neck fracture. He appears to be somewhat confused because he thinks he is still at his facility. He is nearly wheelchair -bound and uses his assist for transfers. He has left-sided weakness. PAST MEDICAL HISTORY: Significant for CVAs, myelodysplasia, hypertension, hyperlipidemia, MARY, GERD, cognitive impairment, and mild dementia. PAST SURGICAL HISTORY: Significant for CABG. MEDICATIONS: Included: 1. Tylenol. 2. Aspirin. 3. Atorvastatin. 4. Dulcolax. 5. Carvedilol. 6. Vitamin B12. 7. Docusate. 8. Neupogen. 9. Lisinopril. 10. Loratadine. 11. Milk of magnesia. 12. Omeprazole. 13. Zofran. 14. MiraLAX. 15. Senna. 16. Sertraline. 17. Fleet enemas. 18. Spironolactone. 19. Travatan. 20. Coumadin. ALLERGIES: SHELLFISH, LACTOSE, WALNUTS, and TREE POLLEN. SOCIAL HISTORY: He is a resident at the [facility]. He is a former smoker and consumes alcohol on occasion. REVIEW OF SYSTEMS: A 14-point review of systems was reviewed with the patient and the patient is somewhat cognitively impaired, but he reports hip pain, but he denies any chest pain, shortness of breath; otherwise, remainder of systems is negative. PHYSICAL EXAMINATION GENERAL: He is in no acute distress. He is well developed, well nourished. He is sitting with his leg flexed. He is alert to himself as well as the year, but he is not oriented to location. VITAL SIGNS: Temp 98.1, pulse rate 71, respiratory rate 16, O2 saturation 97% on room air, blood pressure 110/55. HEENT: His head is normocephalic, atraumatic. CHEST: Clear to auscultation bilaterally. HEART: Regular rate and rhythm. No murmurs, rubs, or gallops. ABDOMEN: Soft and nontender. EXTREMITIES: Left hip is flexed and externally rotated. He is not able to flex and extend his toes nor able to extend and flex his ankle, although he is sensate to light touch about the first dorsal webspace, medial, lateral, dorsal , and plantar foot. He has a 2+ PT pulse and brisk cap refill. His calves are soft and nontender. His skin is intact. There is no erythema or warmth. DIAGNOSTIC STUDIES/LAB DATA: Most recent labs obtained at 5:44 this morning demonstrate a white count of 13.0, hematocrit of 24, platelet count of 91. INR of 1.8. Sodium 139, potassium 3.4, chloride 107, carbon dioxide 27, BUN 12, creatinine 0.72, calcium 8.1. X-ray reviewed revealed a nondisplaced femoral neck fracture on the left side. ASSESSMENT AND PLAN: He has a nondisplaced femoral neck fracture. This needs to be treated operatively by left hip cannulated screws. He needs to be optimized by the medicine service. Prior to surgery, his INR was 1.8, currently it would be better to have this at 1.5, so we could give him FFP if he is cleared to go today for surgery. As per the medicine note, he is optimized; however, I will discuss this with the medicine team. The plan will be for a left hip cannulated screws. He is n.p.o. as of midnight. We will potentially take him later today. [id number]/[facility] #: [id number] [facility]
--- NOTE | 2016-10-07 15:01 | PN ---
Subjective Date of Service: 10/07/16 Interval History: Patient was admitted yesterday evening after a fall resulting in L hip fx. Pending surgery for this afternoon. Patient reports pain is tolerable. He is hungry waiting for surgery, but otherwise offers no acute complaints. No c/o CP , SOB, abd pain, n/v. Objective Active Medications: Acetaminophen (Tylenol Tab*) 650 mg PO Q4H PRN PRN Reason: FEVER/PAIN Aspirin (Aspirin Low Dose Tab*) 81 mg PO DAILY [facility] Last Admin: 10/07/16 10:20 Dose: Not Given Atorvastatin Calcium (Lipitor*) 10 mg PO DAILY [facility] Last Admin: 10/07/16 09:22 Dose: 10 mg Bisacodyl (Dulcolax Supp*) 10 mg MN Q72HR PRN PRN Reason: CONSTIPATION Carvedilol (Coreg Tab*) 1.5625 mg PO BID [facility] Last Admin: 10/07/16 09:23 Dose: 1.5625 mg Cetirizine HCl (Zyrtec*) 10 mg PO DAILY [facility] Last Admin: 10/07/16 09:22 Dose: 10 mg Docusate Sodium (Colace Cap*) 200 mg PO DAILY [facility] Last Admin: 10/07/16 09:22 Dose: 200 mg Filgrastim-Sndz (Zarxio*) 480 mcg .SEE ORDER EVERY OTHER DAY [facility] Sodium Chloride (Ns 0.9% 1000 Ml*) 1,000 mls @ 75 mls/hr IV PER RATE [facility] Last Admin: 10/07/16 09:20 Dose: 75 mls/hr Latanoprost (Xalatan 0.005%*) 1 drop BOTH EYES BEDTIME [facility] PRN Reason: Protocol Last Admin: 10/06/16 21:20 Dose: 1 drop Magnesium Hydroxide (Milk Of Magnesia Liq*) 30 ml PO Q72HR PRN PRN Reason: CONSTIPATION Morphine Sulfate (Morphine Inj (Syringe)*) 2 mg IV Q4H PRN PRN Reason: PAIN Last Admin: 10/06/16 22:34 Dose: 2 mg Omeprazole (Prilosec Cap*) 20 mg PO DAILY@0730 [facility] Last Admin: 10/07/16 09:23 Dose: 20 mg Ondansetron HCl (Zofran Inj*) 4 mg IV Q4H PRN PRN Reason: NAUSEA/VOMITING Oxycodone/Acetaminophen (Percocet 5/325 Tab*) 1 tab PO Q4H PRN PRN Reason: Pain Last Admin: 10/07/16 13:57 Dose: 1 tab Polyethylene Glycol/Electrolytes (Miralax*) 17 gm PO DAILY [facility] Last Admin: 10/07/16 10:20 Dose: Not Given Senna (Senokot Tab*) 1 tab PO BEDTIME [facility] Last Admin: 10/06/16 21:20 Dose: 1 tab Sertraline HCl (Zoloft*) 150 mg PO DAILY [facility] Last Admin: 10/07/16 09:21 Dose: 150 mg Spironolactone (Aldactone Tab*) 12.5 mg PO DAILY [facility] Last Admin: 10/07/16 09:23 Dose: 12.5 mg Vital Signs: Temp Pulse Resp BP Pulse Ox 97.7 F 70 16 121/56 98 10/07/16 11:39 10/07/16 11:39 10/07/16 13:57 10/07/16 11:39 10/07/16 11:39 Oxygen Devices in Use Now: None Appearance: Comfortable and well appearing elderly gentleman accompanied by his in NAD Respiratory: Symmetrical Chest Expansion and Respiratory Effort, Clear to Auscultation Cardiovascular: RRR Abdominal: NL Sounds; No Tenderness; No Distention Extremities: No Edema, - - L hip held in a flexed position Skin: No Rash or Ulcers Neurological: - - alert, questionable orientation but appropriate in conversation Result Diagrams: 10/07/16 05:44 10/07/16 05:36 Diagnostic Imaging: CXR - NAD EKG - sinus with LAD, no change from prior studies Assess/Plan/Problems-Billing Assessment: This is a 76 yo gentleman with 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 - Patient Problems (1) Hip fracture Comment: Pending surgical intervention Orthopedic surgeon, Dr Pearl, consulting and case has been discussed RCRI score of 3 placing him at high risk Chronic medical conditions are controlled at this time, no additional optimization can be made His risk has been discussed with his No absolute contraindication to proceed with planned fixation of L hip fx Discussed case with patient's PCP, Dr Drew, and sys dir, Dr Busch INR still above target after holding Coumadin Will give 1U FFP pre-operatively Recommend resuming Lovenox and Coumadin tomorrow morning Recommend use of BiPAP post extubation while in recovery (2) Myelodysplastic disease Comment: Treated with Neupogen and prn transfusions Last neupogen yesterday, WBC 25K at admission Hgb fell to 7.5 g/dl to this am Plts 90K which is appropriate for surgery Plan to repeat H&H postop with anticipated need for transfusion (3) H/O: CVA (cerebrovascular accident) Comment: Multiple prior infarcts, which have 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 and chronically anticoagulated with Coumadin No known h/o afib Coumadin has been held at this time He is at high risk for perioperative CVA and would recommend bridging with Lovenox and resuming Coumadin tomorrow (4) MARY (obstructive sleep apnea) Comment: Cont home BiPAP Recommend using BiPAP postoperatively post extubation (5) Dyslipidemia Comment: Cont statin (6) Hypertension Comment: Cont home antihypertensive with exception of lisinopril which has been held at this time (7) DVT prophylaxis Comment: Chronically anticoagulated with Coumadin Recommend bridging with Lovenox due to high stroke risk (8) GERD (gastroesophageal reflux disease) Comment: stable continue PPI (9) Full code status Status and Disposition: Inpatient. Pending surgical intervention this afternoon.
[2016-10-07] MEDS ORDERED: KETAMINE HCL* 50 MG/ML 10 ML VIAL ONE (17:38)
[2016-10-07] MEDS ORDERED: fentaNYL* 50 MCG/ML 2 ML VIAL (100 MCG VIAL) ONE (17:38)
[2016-10-07] MEDS ORDERED: Lidocaine 1% INJ* 10 MG/ML 30 ML SDV ONE (18:10)
[2016-10-07] MEDS ORDERED: EPHEDrine (Pressors)* 50 MG/ML VIAL ONE (18:23)
[2016-10-07] MEDS ORDERED: Dexamethasone IV* 4 MG/ML 1 ML (4 MG) ONE (18:23)
[2016-10-07] MEDS ORDERED: Ondansetron INJ* 2 MG/ML VIAL ONE (18:23)
[2016-10-07] MEDS ORDERED: Propofol* 10 MG/ML 20 ML BTL IV PUSH ONE (18:23)
[2016-10-07] MEDS ORDERED: Phenylephrine IV* 40 MCG/ML 10 ML SYRINGE ONE (18:24)
[2016-10-07] MEDS ORDERED: Bupivacaine 0.25% SDV* 30 ML ONE (19:00)
[2016-10-07] MEDS ORDERED: HYDROmorphone* 1 MG/ML 1 ML CARPUJECT IV PRN (19:17)
[2016-10-07] MEDS ORDERED: DiMENhydriNATE IV* 50 MG/ML VIAL IV PUSH PRN (19:17)
[2016-10-07] MEDS ORDERED: Acetaminophen IV 1GM/100ML * 100 ML IVPB ONE (19:17)
[2016-10-07] MEDS ORDERED: oxyCODONE TAB* 5 MG TAB PO PRN (19:17)
--- NOTE | 2016-10-07 19:30 | RAD ---
HISTORY: Left hip internal fixation, fracture COMPARISONS: October 05, 2016 TECHNIQUE: Fluoroscopy was provided for a surgical procedure. Total fluoroscopy time is: 68.55 seconds FINDINGS: Spot images demonstrate internal fixation of the femoral neck. IMPRESSION: FLUOROSCOPY WAS PROVIDED FOR A SURGICAL PROCEDURE CPT II Codes: 6045F
[2016-10-07] MEDS ORDERED: Acetaminophen IV 1GM/100ML * 100 ML ONE (19:57)
[2016-10-07 20:27] LABS: Hematocrit 23 % (42-52)
[2016-10-07 20:29] LABS: Comments Flag Yes
[2016-10-07] MEDS: Senna TAB PO SCH (22:07)
[2016-10-07] MEDS: Latanoprost 0.005%* 2.5 ml BTL BOTH EYES SCH (22:08)
[2016-10-08 06:56] LABS: Hematocrit 21 % (42-52); Hemoglobin 6.5 g/dl (14.0-18.0)
[2016-10-08 06:57] LABS: Comments Flag Yes
[2016-10-08 07:10] LABS: BUN/Creatinine Ratio 14.9 (8-20); Calcium 8.7 mg/dL (8.6-10.3); EGFR African American 131.6 (>60); EGFR Non-African American 102.3 (>60)
--- NOTE | 2016-10-08 07:51 | PN ---
Subjective Date of Service: 10/08/16 Interval History: Patient seen and examined at bedside. Mr. Cramer reports "not much pain." He is pleasantly confused this AM, stating, "Did I have a surgery?" but then was able to recall falling later. He denies fever/chills, CP, SOB, abd pain, n/v. Family History: Unchanged from Admission Social History: Unchanged from Admission Past Medical History: Unchanged from Admission Objective Active Medications: Acetaminophen (Tylenol Tab*) 650 mg PO Q4H PRN PRN Reason: FEVER/PAIN Aspirin (Aspirin Low Dose Tab*) 81 mg PO DAILY [facility] Last Admin: 10/07/16 10:20 Dose: Not Given Atorvastatin Calcium (Lipitor*) 10 mg PO DAILY [facility] Last Admin: 10/07/16 09:22 Dose: 10 mg Bisacodyl (Dulcolax Supp*) 10 mg [place] Q72HR PRN PRN Reason: CONSTIPATION Carvedilol (Coreg Tab*) 1.5625 mg PO BID [facility] Last Admin: 10/07/16 23:46 Dose: Not Given Cetirizine HCl (Zyrtec*) 10 mg PO DAILY [facility] Last Admin: 10/07/16 09:22 Dose: 10 mg Docusate Sodium (Colace Cap*) 200 mg PO DAILY [facility] Last Admin: 10/07/16 09:22 Dose: 200 mg Enoxaparin Sodium (Lovenox(*)) 80 mg SUBCUT Q12H [facility] Filgrastim-Sndz (Zarxio*) 480 mcg .SEE ORDER EVERY OTHER DAY [facility] Sodium Chloride (Ns 0.9% 1000 Ml*) 1,000 mls @ 75 mls/hr IV PER RATE [facility] Last Admin: 10/07/16 21:55 Dose: 75 mls/hr Latanoprost (Xalatan 0.005%*) 1 drop BOTH EYES BEDTIME [facility] PRN Reason: Protocol Last Admin: 10/07/16 22:08 Dose: 1 drop Magnesium Hydroxide (Milk Of Magnesia Liq*) 30 ml PO Q72HR PRN PRN Reason: CONSTIPATION Morphine Sulfate (Morphine Inj (Syringe)*) 2 mg IV Q4H PRN PRN Reason: PAIN Last Admin: 10/06/16 22:34 Dose: 2 mg Omeprazole (Prilosec Cap*) 20 mg PO DAILY@0730 [facility] Last Admin: 10/07/16 09:23 Dose: 20 mg Ondansetron HCl (Zofran Inj*) 4 mg IV Q4H PRN PRN Reason: NAUSEA/VOMITING Oxycodone/Acetaminophen (Percocet 5/325 Tab*) 1 tab PO Q4H PRN PRN Reason: Pain Last Admin: 10/07/16 13:57 Dose: 1 tab Polyethylene Glycol/Electrolytes (Miralax*) 17 gm PO DAILY [facility] Last Admin: 10/07/16 10:20 Dose: Not Given Senna (Senokot Tab*) 1 tab PO BEDTIME [facility] Last Admin: 10/07/16 22:07 Dose: Not Given Sertraline HCl (Zoloft*) 150 mg PO DAILY [facility] Last Admin: 10/07/16 09:21 Dose: 150 mg Spironolactone (Aldactone Tab*) 12.5 mg PO DAILY [facility] Last Admin: 10/07/16 09:23 Dose: 12.5 mg Warfarin Sodium (Coumadin Tab(*)) 4 mg PO DAILY@1700 [facility] PRN Reason: Protocol Vital Signs 10/07/16 10/07/16 10/07/16 07:57 09:22 11:22 Temperature 99.0 F Pulse Rate 71 Respiratory 15 16 17 Rate Blood Pressure 126/63 (mmHg) O2 Sat by Pulse 97 Oximetry 10/07/16 10/07/16 10/07/16 11:39 13:57 19:13 Temperature 97.7 F 97.0 F Pulse Rate 70 85 Respiratory 15 16 14 Rate Blood Pressure 121/56 137/66 (mmHg) O2 Sat by Pulse 98 100 Oximetry 10/07/16 10/07/16 10/07/16 19:15 19:20 19:25 Temperature Pulse Rate 82 82 80 Respiratory 14 14 15 Rate Blood Pressure 131/66 138/67 141/72 (mmHg) O2 Sat by Pulse 100 100 100 Oximetry 10/07/16 10/07/16 10/07/16 19:30 19:35 19:45 Temperature Pulse Rate 78 81 80 Respiratory 19 14 16 Rate Blood Pressure 136/59 129/81 122/56 (mmHg) O2 Sat by Pulse 100 93 98 Oximetry 10/07/16 10/07/16 10/07/16 20:00 20:15 20:30 Temperature 97.9 F Pulse Rate 83 77 77 Respiratory 13 14 18 Rate Blood Pressure 138/63 97/79 132/55 (mmHg) O2 Sat by Pulse 97 99 99 Oximetry 10/07/16 10/07/16 10/07/16 20:47 20:48 20:50 Temperature 97.5 F Pulse Rate 75 Respiratory 9 13 14 Rate Blood Pressure 124/72 136/69 137/64 (mmHg) O2 Sat by Pulse 99 Oximetry 10/07/16 10/07/16 10/07/16 21:00 21:15 21:30 Temperature Pulse Rate 74 72 66 Respiratory 12 12 14 Rate Blood Pressure 137/64 133/70 131/69 (mmHg) O2 Sat by Pulse 98 98 100 Oximetry 10/07/16 10/07/16 10/07/16 21:45 22:00 22:15 Temperature Pulse Rate 73 76 72 Respiratory 14 14 12 Rate Blood Pressure 144/69 142/70 141/71 (mmHg) O2 Sat by Pulse 95 98 100 Oximetry 10/07/16 10/07/16 10/07/16 22:30 22:45 23:00 Temperature Pulse Rate 71 66 68 Respiratory 12 18 13 Rate Blood Pressure 126/66 109/70 121/68 (mmHg) O2 Sat by Pulse 98 100 100 Oximetry 10/07/16 10/07/16 10/07/16 23:15 23:30 23:32 Temperature Pulse Rate 73 77 71 Respiratory 12 15 11 Rate Blood Pressure 134/70 132/66 (mmHg) O2 Sat by Pulse 100 98 100 Oximetry 10/07/16 10/07/16 10/08/16 23:45 23:49 00:00 Temperature 97.2 F Pulse Rate 70 70 Respiratory 13 10 Rate Blood Pressure 141/68 128/71 (mmHg) O2 Sat by Pulse 100 100 Oximetry 10/08/16 10/08/16 10/08/16 00:15 00:30 00:45 Temperature Pulse Rate 73 75 69 Respiratory 11 11 10 Rate Blood Pressure 131/72 126/68 127/68 (mmHg) O2 Sat by Pulse 100 100 100 Oximetry 10/08/16 10/08/16 10/08/16 01:00 01:01 01:15 Temperature Pulse Rate 75 75 75 Respiratory 15 14 14 Rate Blood Pressure 115/66 126/69 (mmHg) O2 Sat by Pulse 100 98 99 Oximetry 10/08/16 10/08/16 10/08/16 01:30 01:45 02:00 Temperature Pulse Rate 71 71 76 Respiratory 11 14 14 Rate Blood Pressure 103/68 123/67 125/66 (mmHg) O2 Sat by Pulse 100 100 99 Oximetry 10/08/16 10/08/16 10/08/16 02:15 02:30 02:45 Temperature Pulse Rate 72 67 67 Respiratory 11 13 13 Rate Blood Pressure 123/67 123/62 110/64 (mmHg) O2 Sat by Pulse 99 100 100 Oximetry 10/08/16 10/08/16 10/08/16 03:00 03:01 03:15 Temperature Pulse Rate 66 75 66 Respiratory 11 16 12 Rate Blood Pressure 120/62 122/60 (mmHg) O2 Sat by Pulse 100 98 100 Oximetry 10/08/16 10/08/16 10/08/16 03:30 03:45 04:00 Temperature 97.4 F Pulse Rate 67 65 64 Respiratory 13 12 14 Rate Blood Pressure 112/63 124/63 123/69 (mmHg) O2 Sat by Pulse 100 100 100 Oximetry 10/08/16 10/08/16 10/08/16 04:15 04:30 04:45 Temperature Pulse Rate 67 83 71 Respiratory 12 16 14 Rate Blood Pressure 108/66 131/68 126/64 (mmHg) O2 Sat by Pulse 100 97 100 Oximetry 10/08/16 10/08/16 10/08/16 05:00 05:15 05:30 Temperature Pulse Rate 69 69 69 Respiratory 12 11 12 Rate Blood Pressure 126/70 132/69 139/69 (mmHg) O2 Sat by Pulse 100 100 100 Oximetry 10/08/16 10/08/16 10/08/16 05:45 06:00 06:15 Temperature Pulse Rate 70 73 79 Respiratory 14 23 20 Rate Blood Pressure 137/71 127/64 131/65 (mmHg) O2 Sat by Pulse 100 96 98 Oximetry 10/08/16 10/08/16 07:00 07:45 Temperature 99.1 F Pulse Rate 76 Respiratory 19 Rate Blood Pressure 113/51 (mmHg) O2 Sat by Pulse 94 Oximetry Oxygen Devices in Use Now: None Appearance: Elderly male, lying in bed, somewhat restless but in NAD Eyes: No Scleral Icterus Ears/Nose/Mouth/Throat: Mucous Membranes Moist Neck: NL Appearance and Movements; NL JVP Respiratory: Symmetrical Chest Expansion and Respiratory Effort, Clear to Auscultation Cardiovascular: NL Sounds; No Murmurs; No JVD, RRR Abdominal: NL Sounds; No Tenderness; No Distention Skin: - - dressing to left hip c/d/i, distal pulses/sensation/movement intact Neurological: - - Alert, oriented x 2, somewhat forgetful, initially thought he was at [place], no focal deficits noted Lines/Tubes/Other Access: Clean, Dry and Intact Peripheral IV Nutrition: Taking PO's Result Diagrams: 10/08/16 06:46 10/08/16 06:46 Microbiology and Other Data: Microbiology 10/07/16 21:00 Nasal Screen MRSA (PCR)(LILI) - Final Nasal Mrsa Negative Diagnostic Imaging: CXR - NAD EKG - sinus with LAD, no change from prior studies Assess/Plan/Problems-Billing Assessment: This is a 76 yo gentleman with 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 - Patient Problems (1) Hip fracture Code(s): S72.009A - FRACTURE OF UNSP PART OF NECK OF UNSP FEMUR, INIT Comment : POD #1, management per ortho HH 6.5/, plan for 2 units PRBC this AM PT/OT Pain management (2) Myelodysplastic disease Code(s): C94.6 - MYELODYSPLASTIC DISEASE, NOT CLASSIFIED Comment: Treated with Neupogen and prn transfusions Hgb 6.5 this AM, 2 units PRBC ordered Repeat HH post-transfusion (3) H/O: CVA (cerebrovascular accident) Code(s): Z86.73 - PRSNL HX OF TIA (TIA), AND CEREB INFRC W/O RESID DEFICITS Comment: Multiple prior infarcts, which have 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 and chronically anticoagulated with Coumadin No known h/o afib Coumadin resumed post-operatively with Lovenox bridge (4) MARY (obstructive sleep apnea) Code(s): G47.33 - OBSTRUCTIVE SLEEP APNEA (ADULT) (PEDIATRIC) Comment: Cont home BiPAP (5) Dyslipidemia Code(s): E78.5 - HYPERLIPIDEMIA, UNSPECIFIED Comment: Cont statin (6) Hypertension Code(s): I10 - ESSENTIAL (PRIMARY) HYPERTENSION Comment: Normotensive Cont home carvedilol, spironolactone Lisinopril held post-operatively (7) GERD (gastroesophageal reflux disease) Code(s): K21.9 - GASTRO-ESOPHAGEAL REFLUX DISEASE WITHOUT ESOPHAGITIS Comment : Stable Continue PPI (8) DVT prophylaxis Comment: Chronically anticoagulated with Coumadin Resume warfarin with Lovenox bridge due to high stroke risk (9) Full code status Code(s): Z78.9 - OTHER SPECIFIED HEALTH STATUS Status and Disposition: Inpatient. PT/OT with anticipated rehab needs
[2016-10-08] MEDS: Polyethylene Glycol 3350* 17 GM PACKET PO SCH (08:52)
[2016-10-08] MEDS: Carvedilol TAB* 3.125 MG PO SCH ×2 (08:52→20:50)
[2016-10-08] MEDS: Sertraline* 50 MG TAB PO SCH (08:53)
[2016-10-08] MEDS: Aspirin Low Dose CHEW TAB* 81 MG PO SCH (08:53)
[2016-10-08] MEDS: Spironolactone TAB* 25 MG PO SCH (08:54)
[2016-10-08] MEDS: Cetirizine* 10 MG TAB PO SCH (08:54)
[2016-10-08] MEDS: Atorvastatin* 10 MG TAB PO SCH (08:54)
[2016-10-08] MEDS: Docusate CAP* 100 MG PO SCH (08:55)
[2016-10-08] MEDS: Omeprazole CAP* 20 MG PO SCH (08:55)
[2016-10-08] MEDS: Enoxaparin(*) 80 MG/0.8 ML SYR SUBCUT SCH ×2 (09:03→20:54)
--- NOTE | 2016-10-08 09:11 | PN ---
Progress Note - Progress Note Date of Service: 10/08/16 SOAP: Subjective: 76 y/o male with multiple co-morbidities s/p L hip can screw IF by Dr. Pearl . Patient reports mild pain in L hip region, otherwise feeling well. H/O baseline dementia, mild dementia noted. Per Medicine, patient was moving both legs in bed this AM without difficulty. Objective: General- Well appearing, NAD. Resting comfortably in bed. MSK- Dressing intact, appears dry. Refused to move L hip d/t pain, holding at ~60degrees, PROM from 30-90 without pain. neg homans, PT 2+, + DP/PF sensation appears grossly intact, difficult to fully assess due to dementia. Laboratory Results - last 24 hr 10/07/16 10/07/16 10/07/16 05:44 14:05 15:11 Hgb Hct INR (Anticoag Therapy) 1.63 H Sodium Potassium Chloride Carbon Dioxide Anion Gap BUN Creatinine Est GFR ( Amer) Est GFR (Non-Af Amer) BUN/Creatinine Ratio Glucose POC Glucose (mg/dL) Calcium Blood Type O Positive Antibody Screen Negative Crossmatch See Detail See Detail 10/07/16 10/07/16 10/08/16 20:21 21:54 06:46 Hgb 7.0 L 6.5 L Hct 23 L 21 L INR (Anticoag Therapy) Sodium Potassium Chloride Carbon Dioxide Anion Gap BUN Creatinine Est GFR ( Amer) Est GFR (Non-Af Amer) BUN/Creatinine Ratio Glucose POC Glucose (mg/dL) 181 H Calcium Blood Type Antibody Screen Crossmatch 10/08/16 10/08/16 06:46 06:46 Hgb Hct INR (Anticoag Therapy) 1.44 H Sodium 139 Potassium 4.0 Chloride 105 Carbon Dioxide 30 Anion Gap 4 BUN 11 Creatinine 0.74 Est GFR ( Amer) 131.6 Est GFR (Non-Af Amer) 102.3 BUN/Creatinine Ratio 14.9 Glucose 122 H POC Glucose (mg/dL) Calcium 8.7 Blood Type Antibody Screen Crossmatch Vital Signs Temp 99.1 F 10/08/16 07:45 Pulse 76 10/08/16 07:00 Resp 15 10/08/16 08:00 BP 113/51 10/08/16 07:00 Pulse Ox 94 10/08/16 07:00 Intake & Output 10/07/16 10/08/16 10/08/16 18:59 06:59 18:59 Intake Total 1290 1968 Output Total 1100 2120 Balance 190 -151 Weight 168 lb 3.2 oz 167 lb Intake: IV Fluids 1290 1969 lr 1300 ns 1290 669 Oral 0 Output: Urine 1100 Joy 1920 Estimated Blood Loss 200 Other: # Bowel Movements 0 Assessment: Stable 76 y/o male s/p L hip can screw IF POD#1 Plan: - DVT prophylaxis- lovenox bridge, restarting coumadin - PT/ OT - SNF placement likely at D/C - Acute Anemia- per hosp transfusion today 2 Units, continue to follow - Likely transfer to floor. Active Medications Generic Name Dose Route Start Last Admin Trade Name Freq PRN Reason Stop Dose Admin Acetaminophen 650 mg 10/06/16 18:48 Tylenol Tab* PO Q4H PRN FEVER/PAIN Aspirin 81 mg 10/07/16 09:00 10/08/16 08:53 Aspirin Low Dose Tab* PO 81 mg DAILY [facility] Administration Atorvastatin Calcium 10 mg 10/07/16 09:00 10/08/16 08:54 Lipitor* PO 10 mg DAILY [facility] Administration Bisacodyl 10 mg 10/06/16 18:53 Dulcolax Supp* [place] Q72HR PRN CONSTIPATION Carvedilol 1.5625 mg 10/06/16 21:00 10/08/16 08:52 Coreg Tab* PO 1.5625 mg BID [facility] Administration Cetirizine HCl 10 mg 10/07/16 09:00 10/08/16 08:54 Zyrtec* PO 10 mg DAILY [facility] Administration Docusate Sodium 200 mg 10/07/16 09:00 10/08/16 08:55 Colace Cap* PO 200 mg DAILY [facility] Administration Enoxaparin Sodium 80 mg 10/08/16 09:00 10/08/16 09:03 Lovenox(*) SUBCUT 80 mg Q12H [facility] Administration Filgrastim-Sndz 480 mcg 10/08/16 09:00 10/08/16 09:18 Rashida* .SEE ORDER 480 mcg EVERY OTHER DAY [facility] Administration Sodium Chloride 1,000 mls @ 75 mls/hr 10/06/16 19:00 10/07/16 21:55 Ns 0.9% 1000 Ml* IV 75 mls/hr PER RATE [facility] Administration Latanoprost 1 drop 10/06/16 21:00 10/07/16 22:08 Xalatan 0.005%* BOTH EYES 1 drop BEDTIME [facility] Administration Protocol Magnesium Hydroxide 30 ml 10/06/16 18:53 Milk Of Magnesia Liq* PO Q72HR PRN CONSTIPATION Morphine Sulfate 2 mg 10/06/16 18:48 10/06/16 22:34 Morphine Inj (Syringe)* IV 2 mg Q4H PRN Administration PAIN Omeprazole 20 mg 10/07/16 07:30 10/08/16 08:55 Prilosec Cap* PO 20 mg DAILY@0730 [facility] Administration Ondansetron HCl 4 mg 10/06/16 18:48 Zofran Inj* IV Q4H PRN NAUSEA/VOMITING Oxycodone/Acetaminophen 1 tab 10/06/16 18:48 10/07/16 13:57 Percocet 5/325 Tab* PO 1 tab Q4H PRN Administration Pain Polyethylene Glycol/Electrolytes 17 gm 10/07/16 09:00 10/08/16 08:52 Miralax* PO 17 gm DAILY [facility] Administration Senna 1 tab 10/06/16 21:00 10/07/16 22:07 Senokot Tab* PO Not Given BEDTIME [facility] Sertraline HCl 150 mg 10/07/16 09:00 10/08/16 08:53 Zoloft* PO 150 mg DAILY [facility] Administration Spironolactone 12.5 mg 10/07/16 09:00 10/08/16 08:54 Aldactone Tab* PO 12.5 mg DAILY [facility] Administration Warfarin Sodium 4 mg 10/08/16 17:00 Coumadin Tab(*) PO DAILY@1700 [facility] Protocol
[2016-10-08] MEDS: FILGRASTIM-SNDZ* 480 MCG/0.8 ML SYRINGE SCH (09:18)
[2016-10-08] MEDS: oxyCODONE/Acetamin 5/325 MG* TAB PO PRN (09:35)
--- NOTE | 2016-10-08 11:25 | CONSULT ---
Subjective Date of Service: 10/08/16 Interval History: date of admission date of consult 10/08/2016 PMD: Dr. Drew service: Hospitalist CC: fall Reason for consult: hip fracture cardiac evaluation. 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 He is very limited with ambulation because of his prior strokes. He suffered a left hip fracture and is now s/p surgery. His hemoglobin was low so has received a blood transfusion. He was to have an implantable loop monitor to evaluate for arrhythmias but has not had. He is empirically on warfarin in addition to aspirin for CVA prevention. He has no chest pain, dyspnea, lightheadedness, palpitations or syncope. Allergies: Shellfish-derived Products 08/03/12 Walnuts 01/16/14 Lactose (Intolerance) 10/02/14 Pmhx: CVA recurrent ischemic with residual deficit left sided weakness CAD, NV, CABG Ischemic cardiomyopathy LVEF 40-45% Obstructive sleep apnea syndrome Essential hypertension Cancer - (2009) prostate Gout Glaucoma Myelodysplastic syndrome, currently managed with Neupogen and as needed transfusions. Hypertension. Hyperlipidemia. Surgical Hx: Coronary Artery Bypass Graft (CABG), 11/10/2005. Coronary Bypass Grafting - () x 4. RUANO-LAD with sequential SVG jump grafts to the RPL, marginal and diagonal. Spinal stenosis - (2011) Prostatectomy - (2009) Cataract Removal FH: Non contributory. 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 Personal Habits: Smoking: Patient is a former smoker - Smoked in graduate school.Cigarette Use: Former Cigarette Smoker.Alcohol: Rarely consumes alcohol.Drug Use: Denies Drug Use. Medications Active Medications: Acetaminophen (Tylenol Tab*) 650 mg PO Q4H PRN PRN Reason: FEVER/PAIN Aspirin (Aspirin Low Dose Tab*) 81 mg PO DAILY [facility] Last Admin: 10/08/16 08:53 Dose: 81 mg Atorvastatin Calcium (Lipitor*) 10 mg PO DAILY [facility] Last Admin: 10/08/16 08:54 Dose: 10 mg Bisacodyl (Dulcolax Supp*) 10 mg IN Q72HR PRN PRN Reason: CONSTIPATION Carvedilol (Coreg Tab*) 1.5625 mg PO BID [facility] Last Admin: 10/08/16 08:52 Dose: 1.5625 mg Cetirizine HCl (Zyrtec*) 10 mg PO DAILY [facility] Last Admin: 10/08/16 08:54 Dose: 10 mg Docusate Sodium (Colace Cap*) 200 mg PO DAILY [facility] Last Admin: 10/08/16 08:55 Dose: 200 mg Enoxaparin Sodium (Lovenox(*)) 80 mg SUBCUT Q12H [facility] Last Admin: 10/08/16 09:03 Dose: 80 mg Filgrastim-Sndz (Zarxio*) 480 mcg .SEE ORDER EVERY OTHER DAY [facility] Last Admin: 10/08/16 09:18 Dose: 480 mcg Sodium Chloride (Ns 0.9% 1000 Ml*) 1,000 mls @ 75 mls/hr IV PER RATE [facility] Last Admin: 10/07/16 21:55 Dose: 75 mls/hr Latanoprost (Xalatan 0.005%*) 1 drop BOTH EYES BEDTIME [facility] PRN Reason: Protocol Last Admin: 10/07/16 22:08 Dose: 1 drop Magnesium Hydroxide (Milk Of Magnesia Liq*) 30 ml PO Q72HR PRN PRN Reason: CONSTIPATION Morphine Sulfate (Morphine Inj (Syringe)*) 2 mg IV Q4H PRN PRN Reason: PAIN Last Admin: 10/06/16 22:34 Dose: 2 mg Omeprazole (Prilosec Cap*) 20 mg PO DAILY@0730 [facility] Last Admin: 10/08/16 08:55 Dose: 20 mg Ondansetron HCl (Zofran Inj*) 4 mg IV Q4H PRN PRN Reason: NAUSEA/VOMITING Oxycodone/Acetaminophen (Percocet 5/325 Tab*) 1 tab PO Q4H PRN PRN Reason: Pain Last Admin: 10/08/16 09:35 Dose: 1 tab Polyethylene Glycol/Electrolytes (Miralax*) 17 gm PO DAILY [facility] Last Admin: 10/08/16 08:52 Dose: 17 gm Senna (Senokot Tab*) 1 tab PO BEDTIME [facility] Last Admin: 10/07/16 22:07 Dose: Not Given Sertraline HCl (Zoloft*) 150 mg PO DAILY [facility] Last Admin: 10/08/16 08:53 Dose: 150 mg Spironolactone (Aldactone Tab*) 12.5 mg PO DAILY [facility] Last Admin: 10/08/16 08:54 Dose: 12.5 mg Warfarin Sodium (Coumadin Tab(*)) 4 mg PO DAILY@1700 [facility] PRN Reason: Protocol Home Medications: Omeprazole CAP* [Prilosec CAP* 20 MG] 20 mg PO DAILY 10/24/13 [History Confirmed 10/06/16] Atorvastatin* [Lipitor 10 MG*] 10 mg PO DAILY 04/17/14 [History Confirmed ] Docusate CAP* [Colace Cap*] 200 mg PO DAILY 04/17/14 [History Confirmed 10/06/16 ] Cyanocobalamin [Vitamin B-12] 1,000 mcg PO DAILY 08/22/14 [History Confirmed ] Cholecalciferol [Vitamin D3] 1,000 unit PO QAM 10/14/14 [History Confirmed 10/06] Senna TAB* [Senokot TAB*] 1 tab PO BEDTIME 10/14/14 [History Confirmed 10/06/16] Sertraline* [Zoloft*] 150 mg PO DAILY 10/14/14 [History Confirmed 10/06/16] Lisinopril TAB* [Prinivil TAB 5 MG*] 2.5 mg PO DAILY 01/23/15 [History Confirmed 10/06/16] Spironolactone TAB* [Aldactone TAB 25 MG*] 12.5 mg PO DAILY 08/21/15 [History Confirmed 10/06/16] LoraTADine TAB(NF) [Claritin 10 MG TAB(NF)] 10 mg PO DAILY 01/27/16 [History Confirmed 10/06/16] Ondansetron ODT TAB* [Zofran 4 MG Odt TAB*] 4 mg PO Q8H PRN 01/27/16 [History Confirmed 10/06/16] Polyethylene Glycol 3350* [Miralax*] 17 gm PO DAILY 01/27/16 [History Confirmed 10/06/16] Acetaminophen TAB* [Tylenol TAB*] 650 mg PO Q4HR PRN 04/03/16 [History Confirmed 10/06/16] Travoprost Z 0.004% OPHTH (NF) [Travatan Z 0.004% OPTH (NF)] 1 drop BOTH EYES BEDTIME 05/22/16 [History Confirmed 10/06/16] Warfarin TAB(*) [Coumadin TAB(*)] 2 mg PO MOTUTHSA 08/16/16 [History Confirmed 10/06/16] Aspirin Low Dose CHEW TAB* [Aspirin Low Dose TAB*] 81 mg PO DAILY 08/17/16 [ History Confirmed 10/06/16] Bisacodyl SUPP* [Dulcolax Supp*] 10 mg IN Q72HR PRN 08/17/16 [History Confirmed 10/06/16] Magnesium Hydroxide LIQ* [Milk of Magnesia LIQ*] 30 ml PO Q72HR PRN 08/17/16 [ History Confirmed 10/06/16] Carvedilol TAB* [Coreg TAB*] 1.5625 mg PO BID 08/25/16 [History Confirmed ] Filgrastim(NF) [Neupogen(NF)] 480 mcg .SEE ORDER EVERY OTHER DAY #12 vial [Rx Confirmed 10/06/16] Sodium Phosphate ADULT ENEMA* [Fleet Enema*] 1 enema IN Q72H PRN 10/06/16 [ History Confirmed 10/06/16] Warfarin TAB(*) [Coumadin TAB(*)] 4 mg PO SUWEFR 10/06/16 [History Confirmed ] Review of Systems - Measurements Intake and Output: Intake and Output Last 24 Hours 10/06/16 10/07/16 10/08/16 10/09/16 06:59 06:59 06:59 06:59 Intake Total 549 3259 Output Total 650 3220 Balance -101 39 Weight 171 lb 168 lb 3.2 oz 167 lb Intake: IV Fluids 149 3259 LR 149 lr 1300 ns 1959 Oral 400 0 Output: Urine 1100 Joy 650 1920 Estimated Blood Loss 200 Other: # Bowel Movements 0 0 - Review of Systems Constitutional Symptoms: Positive: Weakness, Fatigue Dermatology: Negative: Rash, Skin Lesions HEENT: Negative: Vertigo, Sinus Problem Eyes: Negative: Change in Vision, Double Vision, Glaucoma, Cataracts Thyroid: Negative: Thyroid Nodule, Cold Intolerance, Heat Intolerance, Sweatiness, Tremor, Frequent Defecation, Constipation, Palpitations Pulmonary: Negative: Cough, Sputum, Hemoptysis, Wheezing, Respiratory Distress, Shortness of Breath Cardiology: Negative: Chest Pain, Shortness of Breath, Palpitations, Swelling of Ankles, Peripheral Vascular Dis, Edema, Faintness, Syncope, Claudication, Paroxysmal Nocturnal Dyspnea, Orthopnea Gastroenterology: Negative: Abdominal Pain, Nausea, Vomiting, Anorexia, Indigestion, Difficulty Swallowing, Heartburn, Constipation, Diarrhea, Blood in Stools, Change in Bowel Habits, Haematemesis, Melena Genital - Urinary: Negative: Dysuria, Hematuria, Polyuria Musculoskeletal: Negative: Joint Pain, Joint Stiffness, Osteoporosis, Low Back Pain Endocrinology: Negative: Obesity, Hyperglycemia, Hypoglycemia, Diabetic Foot Ulcers, Calluses, Hirsutism, Polydipsia, Polyuria Hematologic/Lymphatic: Positive: Anemia, Use of Anticoagulant, Use of Antiplatelet Drugs Neurology: Positive: Change in Coordination, Change in Memory, Change in Walking , Hx of Stroke\TIA Negative: Headaches, Migraines, Change in Vision, Diplopia, Change in Sphincter Function, Numbness\Paresthesiae, Unexplained Weakness, Hx Seizures Psychiatry: Positive: Depression Negative: Anxiety, Sexual Dysfunction, Weight Change, Guilt Feelings, Tearfulness, Unusual Fatigue Allergic/Immunologic: Negative: Hx HIV, Immunocompromise Review of Systems Statement: All other review of systems negative, unless stated above. Objective Vital Signs: Temp Pulse Resp BP Pulse Ox 97.4 F 78 18 105/57 98 10/08/16 10:58 10/08/16 10:58 10/08/16 10:58 10/08/16 10:58 10/08/16 10:58 Oxygen Devices in Use Now: None Appearance: nad, pleasant Ears/Nose/Mouth/Throat: Clear Oropharnyx, Mucous Membranes Moist Neck: NL Appearance and Movements; NL JVP, Trachea Midline Respiratory: Symmetrical Chest Expansion and Respiratory Effort, Clear to Auscultation Cardiovascular: NL Sounds; No Murmurs; No JVD, RRR, No Edema Abdominal: NL Sounds; No Tenderness; No Distention Extremities: No Edema Skin: No Rash or Ulcers Neurological: Alert and Oriented x 3, - - left sided weakness Laboratory Results: 10/08/16 06:46 10/08/16 06:46 INR (Anticoag Therapy) 1.44 (0.89-1.11) H 10/08/16 06:46 Total Bilirubin 0.30 mg/dL (0.2-1.0) 10/06/16 18:45 AST 18 U/L (13-39) 10/06/16 19:50 ALT 13 U/L (7-52) 10/06/16 18:45 Alkaline Phosphatase 171 U/L (34-104) H 10/06/16 18:45 Total Protein 7.7 g/dL (6.4-8.9) 10/06/16 18:45 Albumin 3.7 g/dL (3.2-5.2) 10/06/16 18:45 Globulin 4.0 g/dL (2-4) 10/06/16 18:45 Albumin/Globulin Ratio 0.9 (1-3) L 10/06/16 18:45 Diagnostic Imaging: Echo 05/2016: LVEF 40-45% Echocardiogram - (06/13/2015) LVEF 45% Echocardiogram - (03/15/2014) LVEF 40-45% Holter Monitor - (04/22/2014) Normal sinus rhythm, couplets, one triplet Stress Test - (04/18/2014) Focal ischemia in the left lateral wall near the apex cardiac cath 11/05/05 [facility] - Left main: Normal. obstructive proximal LAD lesion , [employer] mid-LAD fills from diagonal, LCx and RCA collaterals. Non-dominant Lcx with obstructive lesion. Large ramus no significant disease. 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 - Continue current cardiac medications - Agree with care as being provided by Hospitalist service Thank you for allowing me to participate in the cardiovascular care of this patient. Please do not hesitate to contact me with questions or concerns.
--- NOTE | 2016-10-08 13:15 | PN ---
Progress Note - Progress Note Date of Service: 10/08/16 SOAP: Subjective: POD#1 from L hip abhi screws. in ICU overnight. receiving blood currently. no complaints of chest pain, SOB. Oriented. No signs of confusion Objective: Temp Pulse Resp BP Pulse Ox 98.0 F 79 18 92/47 96 10/08/16 12:22 10/08/16 12:22 10/08/16 12:40 10/08/16 12:22 10/08/16 12:22 AAOx3, NAD. LLE: dressing in place. calf soft, nontender. SILT grossly distally. 2+ PT pulse Laboratory Results - last 24 hr 10/07/16 10/07/16 10/07/16 05:44 14:05 15:11 Hgb Hct INR (Anticoag Therapy) 1.63 H Sodium Potassium Chloride Carbon Dioxide Anion Gap BUN Creatinine Est GFR ( Amer) Est GFR (Non-Af Amer) BUN/Creatinine Ratio Glucose POC Glucose (mg/dL) Calcium Blood Type O Positive Antibody Screen Negative Crossmatch See Detail See Detail 10/07/16 10/07/16 10/08/16 20:21 21:54 06:46 Hgb 7.0 L 6.5 L Hct 23 L 21 L INR (Anticoag Therapy) Sodium Potassium Chloride Carbon Dioxide Anion Gap BUN Creatinine Est GFR ( Amer) Est GFR (Non-Af Amer) BUN/Creatinine Ratio Glucose POC Glucose (mg/dL) 181 H Calcium Blood Type Antibody Screen Crossmatch 10/08/16 10/08/16 06:46 06:46 Hgb Hct INR (Anticoag Therapy) 1.44 H Sodium 139 Potassium 4.0 Chloride 105 Carbon Dioxide 30 Anion Gap 4 BUN 11 Creatinine 0.74 Est GFR ( Amer) 131.6 Est GFR (Non-Af Amer) 102.3 BUN/Creatinine Ratio 14.9 Glucose 122 H POC Glucose (mg/dL) Calcium 8.7 Blood Type Antibody Screen Crossmatch Assessment: POD#1 Plan: WBAT, PT/OT- please mobilize transfusion for ACBLA will follow transition to coumadin per medicine recs complete 24 hours post op abx dressing change tomorrow
[2016-10-08] MEDS: Warfarin TAB(*) 4 MG PO SCH (17:09)
[2016-10-08] MEDS: Senna TAB PO SCH (20:50)
[2016-10-08] MEDS: Acetaminophen TAB* 325 MG PO PRN (20:50)
[2016-10-08] MEDS: Latanoprost 0.005%* 2.5 ml BTL BOTH EYES SCH (20:51)
[2016-10-09] MEDS: oxyCODONE/Acetamin 5/325 MG* TAB PO PRN ×4 (00:48→23:34)
[2016-10-09] MEDS: Sertraline* 50 MG TAB PO SCH (07:43)
[2016-10-09] MEDS: Polyethylene Glycol 3350* 17 GM PACKET PO SCH (07:43)
[2016-10-09] MEDS: Carvedilol TAB* 3.125 MG PO SCH ×2 (07:44→20:36)
[2016-10-09] MEDS: Spironolactone TAB* 25 MG PO SCH (07:44)
[2016-10-09] MEDS: Docusate CAP* 100 MG PO SCH (07:45)
[2016-10-09] MEDS: Omeprazole CAP* 20 MG PO SCH (07:45)
[2016-10-09] MEDS: Aspirin Low Dose CHEW TAB* 81 MG PO SCH (07:45)
[2016-10-09] MEDS: Atorvastatin* 10 MG TAB PO SCH (07:45)
[2016-10-09] MEDS: Cetirizine* 10 MG TAB PO SCH (07:46)
[2016-10-09 08:22] LABS: Hematocrit 23 % (42-52); Hemoglobin 7.6 g/dl (14.0-18.0)
[2016-10-09 08:24] LABS: Comments Flag Yes
--- NOTE | 2016-10-09 09:30 | PN ---
Progress Note - Progress Note Date of Service: 10/09/16 SOAP: Subjective: Pt OOB to chair, with minimal complaints of pain Objective: Vital Signs Temp Pulse Resp BP Pulse Ox 98.4 F 82 16 114/46 97 10/09/16 03:19 10/09/16 03:19 10/09/16 07:46 10/09/16 03:19 10/09/16 03:19 Laboratory Last Values WBC 13.0 10^3/ul (3.5-10.8) H 10/07/16 05:44 RBC 2.96 10^6/ul (4.0-5.4) L 10/07/16 05:44 Hgb 7.6 g/dl (14.0-18.0) L 10/09/16 08:00 Hct 23 % (42-52) L 10/09/16 08:00 MCV 80 fL (80-94) 10/07/16 05:44 MCH 25 pg (27-31) L 10/07/16 05:44 MCHC 31 g/dl (31-36) 10/07/16 05:44 RDW 23 % (10.5-15) H 10/07/16 05:44 Plt Count 91 10^3/ul (150-450) L 10/07/16 05:44 MPV 10 um3 (7.4-10.4) 10/07/16 05:44 Immature Gran % (Auto) 15 % (0-9) H 10/06/16 18:45 Neut % (Auto) 85.9 % (38-83) H 10/07/16 05:44 Lymph % (Auto) 10.7 % (25-47) L 10/07/16 05:44 Chase % (Auto) 3.0 % (1-9) 10/07/16 05:44 Eos % (Auto) 0.1 % (0-6) 10/07/16 05:44 Baso % (Auto) 0.3 % (0-2) 10/07/16 05:44 Absolute Neuts (auto) 11.2 10^3/ul (1.5-7.7) H 10/07/16 05:44 Absolute Lymphs (auto) 1.4 10^3/ul (1.0-4.8) 10/07/16 05:44 Absolute Monos (auto) 0.4 10^3/ul (0-0.8) 10/07/16 05:44 Absolute Eos (auto) 0 10^3/ul (0-0.6) 10/07/16 05:44 Absolute Basos (auto) 0 10^3/ul (0-0.2) 10/07/16 05:44 Absolute Nucleated RBC 0 10^3/ul 10/07/16 05:44 Neutrophils % 80 % (38-83) 10/06/16 18:45 Band Neutrophils % 13 % (0-8) H 10/06/16 18:45 Lymphocytes % 3 % (25-47) L 10/06/16 18:45 Monocytes % 2 % (0-13) 10/06/16 18:45 Metamyelocytes % 2 % (0-2) 10/06/16 18:45 Nucleated RBC % 0 10/07/16 05:44 Normal RBC Morphology Not Reportable 10/06/16 18:45 Polychromasia 1+ 10/06/16 18:45 Elliptocytes 1+ 10/06/16 18:45 INR (Anticoag Therapy) 1.52 (0.89-1.11) H 10/09/16 06:17 Sodium 139 mmol/L (133-145) 10/08/16 06:46 Potassium 4.0 mmol/L (3.5-5.0) 10/08/16 06:46 Chloride 105 mmol/L (101-111) 10/08/16 06:46 Carbon Dioxide 30 mmol/L (22-32) 10/08/16 06:46 Anion Gap 4 mmol/L (2-11) 10/08/16 06:46 BUN 11 mg/dL (6-24) 10/08/16 06:46 Creatinine 0.74 mg/dL (0.67-1.17) 10/08/16 06:46 Est GFR ( Amer) 131.6 (>60) 10/08/16 06:46 Est GFR (Non-Af Amer) 102.3 (>60) 10/08/16 06:46 BUN/Creatinine Ratio 14.9 (8-20) 10/08/16 06:46 Glucose 122 mg/dL (70-100) H 10/08/16 06:46 POC Glucose (mg/dL) 181 mg/dL (70-100) H 10/07/16 21:54 Lactic Acid 1.4 mmol/L (0.5-2.0) 10/06/16 19:00 Calcium 8.7 mg/dL (8.6-10.3) 10/08/16 06:46 Total Bilirubin 0.30 mg/dL (0.2-1.0) 10/06/16 18:45 AST 18 U/L (13-39) 10/06/16 19:50 ALT 13 U/L (7-52) 10/06/16 18:45 Alkaline Phosphatase 171 U/L (34-104) H 10/06/16 18:45 C-Reactive Protein 30.65 mg/L (< 5.00) H 10/06/16 18:45 Total Protein 7.7 g/dL (6.4-8.9) 10/06/16 18:45 Albumin 3.7 g/dL (3.2-5.2) 10/06/16 18:45 Globulin 4.0 g/dL (2-4) 10/06/16 18:45 Albumin/Globulin Ratio 0.9 (1-3) L 10/06/16 18:45 Blood Type O Positive 10/07/16 05:44 Antibody Screen Negative 10/07/16 05:44 Crossmatch See Detail 10/07/16 15:11 incision: c/d; dressing changed PE: 2+ DP pulses, left hemiplegia Assessment: s/p left hip cannulated screws Plan: 1) PT/OT- WBAT 2) continue DVT prophylaxis per Medicine 3) Hospitalist co-managing 4) Will continue to follow, may require inpat rehab.
[2016-10-09] MEDS: Enoxaparin(*) 80 MG/0.8 ML SYR SUBCUT SCH ×2 (10:39→20:39)
--- NOTE | 2016-10-09 11:10 | PN ---
Progress Note - Progress Note Date of Service: 10/09/16 SOAP: Subjective: POD#2 from L hip cannulated screws. Doing well. Sleeping in chair. Arousable. Mildly confused but corrects himself. Pleasant. Denies complaints. Comfortable Objective: Temp Pulse Resp BP Pulse Ox 98.2 F 72 18 118/56 100 10/09/16 07:28 10/09/16 07:28 10/09/16 09:46 10/09/16 07:28 10/09/16 07:28 NAD. LLE: dressing in place. calf soft, nontender. SILT. brisk cap refill. Laboratory Results - last 24 hr 10/07/16 10/09/16 10/09/16 05:44 06:17 08:00 Hgb 7.6 L Hct 23 L INR (Anticoag Therapy) 1.52 H Blood Type O Positive Antibody Screen Negative Crossmatch See Detail Assessment: POD#2 from L hip cannulated screws Plan: WBAT- PT/OT, mobilize lovenox and bridge to coumadin- managed per medicine HCT 23. Will monitor Dispo when medically optimized to SNF will follow tomorrow and then likely sign off. f/u with me in 10-14 days
--- NOTE | 2016-10-09 11:19 | PN ---
Subjective Date of Service: 10/09/16 Interval History: Patient seen and examined at bedside He is drowsy but arousable, denies pain at this time. Denies CP, SOB, n/v. Follows commands. Initially mildly confused but self corrects Family History: Unchanged from Admission Social History: Unchanged from Admission Past Medical History: Unchanged from Admission Objective Active Medications: Acetaminophen (Tylenol Tab*) 650 mg PO Q4H PRN PRN Reason: FEVER/PAIN Last Admin: 10/08/16 20:50 Dose: 650 mg Aspirin (Aspirin Low Dose Tab*) 81 mg PO DAILY [facility] Last Admin: 10/09/16 07:45 Dose: 81 mg Atorvastatin Calcium (Lipitor*) 10 mg PO DAILY [facility] Last Admin: 10/09/16 07:45 Dose: 10 mg Bisacodyl (Dulcolax Supp*) [address] Q72HR PRN PRN Reason: CONSTIPATION Carvedilol (Coreg Tab*) 1.5625 mg PO BID [facility] Last Admin: 10/09/16 07:44 Dose: 1.5 mg Cetirizine HCl (Zyrtec*) 10 mg PO DAILY [facility] Last Admin: 10/09/16 07:46 Dose: 10 mg Docusate Sodium (Colace Cap*) 200 mg PO DAILY [facility] Last Admin: 10/09/16 07:45 Dose: 200 mg Enoxaparin Sodium (Lovenox(*)) 80 mg SUBCUT Q12H [facility] Last Admin: 10/09/16 10:39 Dose: 80 mg Filgrastim-Sndz (Zarxio*) 480 mcg .SEE ORDER EVERY OTHER DAY [facility] Last Admin: 10/08/16 09:18 Dose: 480 mcg Latanoprost (Xalatan 0.005%*) 1 drop BOTH EYES BEDTIME [facility] PRN Reason: Protocol Last Admin: 10/08/16 20:51 Dose: 1 drop Magnesium Hydroxide (Milk Of Magnesia Liq*) 30 ml PO Q72HR PRN PRN Reason: CONSTIPATION Morphine Sulfate (Morphine Inj (Syringe)*) 2 mg IV Q4H PRN PRN Reason: PAIN Last Admin: 10/06/16 22:34 Dose: 2 mg Omeprazole (Prilosec Cap*) 20 mg PO DAILY@0730 [facility] Last Admin: 10/09/16 07:45 Dose: 20 mg Ondansetron HCl (Zofran Inj*) 4 mg IV Q4H PRN PRN Reason: NAUSEA/VOMITING Oxycodone/Acetaminophen (Percocet 5/325 Tab*) 1 tab PO Q4H PRN PRN Reason: Pain Last Admin: 10/09/16 07:46 Dose: 1 tab Polyethylene Glycol/Electrolytes (Miralax*) 17 gm PO DAILY [facility] Last Admin: 10/09/16 07:43 Dose: 17 gm Senna (Senokot Tab*) 1 tab PO BEDTIME [facility] Last Admin: 10/08/16 20:50 Dose: 1 tab Sertraline HCl (Zoloft*) 150 mg PO DAILY [facility] Last Admin: 10/09/16 07:43 Dose: 150 mg Spironolactone (Aldactone Tab*) 12.5 mg PO DAILY [facility] Last Admin: 10/09/16 07:44 Dose: 12.5 mg Warfarin Sodium (Coumadin Tab(*)) 4 mg PO DAILY@1700 [facility] PRN Reason: Protocol Last Admin: 10/08/16 17:09 Dose: 4 mg Vital Signs 10/08/16 10/08/16 10/08/16 12:22 12:40 20:00 Temperature 98.0 F Pulse Rate 79 Respiratory 18 18 17 Rate Blood Pressure 92/47 (mmHg) O2 Sat by Pulse 96 Oximetry 10/08/16 10/08/16 10/09/16 20:03 23:43 00:48 Temperature 99.0 F 98.2 F Pulse Rate 86 89 Respiratory 18 18 16 Rate Blood Pressure 111/50 95/52 (mmHg) O2 Sat by Pulse 92 93 Oximetry 10/09/16 10/09/16 10/09/16 02:48 03:19 07:28 Temperature 98.4 F 98.2 F Pulse Rate 82 72 Respiratory 16 16 15 Rate Blood Pressure 114/46 118/56 (mmHg) O2 Sat by Pulse 97 100 Oximetry 10/09/16 10/09/16 10/09/16 07:46 08:00 09:46 Temperature Pulse Rate Respiratory 16 16 18 Rate Blood Pressure (mmHg) O2 Sat by Pulse Oximetry Oxygen Devices in Use Now: None Appearance: Older male patient, OOB to chair, in NAD Eyes: No Scleral Icterus Ears/Nose/Mouth/Throat: Mucous Membranes Moist Neck: NL Appearance and Movements; NL JVP Respiratory: Symmetrical Chest Expansion and Respiratory Effort, Clear to Auscultation Cardiovascular: NL Sounds; No Murmurs; No JVD, RRR Extremities: No Clubbing, Cyanosis, - - LLE with c/d/i dressing, distal pulses intact Neurological: - - Alert, oriented x 2 - initially confused bu self corrects Lines/Tubes/Other Access: Clean, Dry and Intact Peripheral IV Nutrition: Taking PO's Result Diagrams: 10/09/16 08:00 10/08/16 06:46 Microbiology and Other Data: Microbiology 10/07/16 21:00 Nasal Screen MRSA (PCR)([facility]ILI) - Final Nasal Mrsa Negative Diagnostic Imaging: CXR - NAD EKG - sinus with LAD, no change from prior studies Assess/Plan/Problems-Billing Assessment: This is a 76 yo gentleman with 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 - Patient Problems (1) Hip fracture Code(s): S72.009A - FRACTURE OF UNSP PART OF NECK OF UNSP FEMUR, INIT Comment : POD #2, management per ortho Hgb 7.6 s/p PRBC, patient not symptomatic, continue to follow PT/OT Pain management (2) Myelodysplastic disease Code(s): C94.6 - MYELODYSPLASTIC DISEASE, NOT CLASSIFIED Comment: Treated with Neupogen and prn transfusions Hgb 7.6 s/p 2 units PRBC Continue to follow, anticipate may need additional transfusion (3) H/O: CVA (cerebrovascular accident) Code(s): Z86.73 - PRSNL HX OF TIA (TIA), AND CEREB INFRC W/O RESID DEFICITS Comment: Multiple prior infarcts, which have 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 and chronically anticoagulated with Coumadin No known h/o afib Coumadin resumed post-operatively with Lovenox bridge (4) MARY (obstructive sleep apnea) Code(s): G47.33 - OBSTRUCTIVE SLEEP APNEA (ADULT) (PEDIATRIC) Comment: Cont home BiPAP (5) Dyslipidemia Code(s): E78.5 - HYPERLIPIDEMIA, UNSPECIFIED Comment: Cont statin (6) Hypertension Code(s): I10 - ESSENTIAL (PRIMARY) HYPERTENSION Comment: Normotensive Cont home carvedilol, spironolactone Lisinopril held post-operatively (7) GERD (gastroesophageal reflux disease) Code(s): K21.9 - GASTRO-ESOPHAGEAL REFLUX DISEASE WITHOUT ESOPHAGITIS Comment : Stable Continue PPI (8) DVT prophylaxis Comment: Chronically anticoagulated with Coumadin Resume warfarin with Lovenox bridge due to high stroke risk (9) Full code status Code(s): Z78.9 - OTHER SPECIFIED HEALTH STATUS Status and Disposition: Inpatient. PT/OT with anticipated rehab needs
[2016-10-09] MEDS: Warfarin TAB(*) 4 MG PO SCH (17:05)
[2016-10-09] MEDS: Senna TAB PO SCH (20:41)
[2016-10-09] MEDS: Latanoprost 0.005%* 2.5 ml BTL BOTH EYES SCH (20:42)
[2016-10-10] MEDS: Polyethylene Glycol 3350* 17 GM PACKET PO SCH (09:30)
[2016-10-10] MEDS: Carvedilol TAB* 3.125 MG PO SCH ×2 (09:31→21:10)
[2016-10-10] MEDS: Atorvastatin* 10 MG TAB PO SCH (09:31)
[2016-10-10] MEDS: Sertraline* 50 MG TAB PO SCH (09:32)
[2016-10-10] MEDS: Docusate CAP* 100 MG PO SCH (09:33)
[2016-10-10] MEDS: oxyCODONE/Acetamin 5/325 MG* TAB PO PRN ×2 (09:33→18:31)
[2016-10-10] MEDS: Aspirin Low Dose CHEW TAB* 81 MG PO SCH (09:33)
[2016-10-10] MEDS: Cetirizine* 10 MG TAB PO SCH (09:33)
[2016-10-10] MEDS: Omeprazole CAP* 20 MG PO SCH (09:33)
[2016-10-10] MEDS: Spironolactone TAB* 25 MG PO SCH (09:34)
[2016-10-10] MEDS: Enoxaparin(*) 80 MG/0.8 ML SYR SUBCUT SCH ×2 (09:37→21:14)
[2016-10-10] MEDS: FILGRASTIM-SNDZ* 480 MCG/0.8 ML SYRINGE SCH (09:38)
[2016-10-10 11:40] LABS: Comments Flag Yes; Hematocrit 24 % (42-52); Hemoglobin 7.6 g/dl (14.0-18.0)
--- NOTE | 2016-10-10 14:02 | PN ---
Subjective Date of Service: 10/10/16 Interval History: Patient seen and examined at bedside. Patient more alert and oriented this morning. Reports "some pain" but "not too bad." The medication is helping. Denies dizziness, CP, SOB, or other acute concerns. Family History: Unchanged from Admission Social History: Unchanged from Admission Past Medical History: Unchanged from Admission Objective Active Medications: Acetaminophen (Tylenol Tab*) 650 mg PO Q4H PRN PRN Reason: FEVER/PAIN Last Admin: 10/08/16 20:50 Dose: 650 mg Aspirin (Aspirin Low Dose Tab*) 81 mg PO DAILY [facility] Last Admin: 10/10/16 09:33 Dose: 81 mg Atorvastatin Calcium (Lipitor*) 10 mg PO DAILY [facility] Last Admin: 10/10/16 09:31 Dose: 10 mg Bisacodyl (Dulcolax Supp*) 10 mg [place] Q72HR PRN PRN Reason: CONSTIPATION Carvedilol (Coreg Tab*) 1.5625 mg PO BID [facility] Last Admin: 10/10/16 09:31 Dose: 1.5625 mg Cetirizine HCl (Zyrtec*) 10 mg PO DAILY [facility] Last Admin: 10/10/16 09:33 Dose: 10 mg Docusate Sodium (Colace Cap*) 200 mg PO DAILY [facility] Last Admin: 10/10/16 09:33 Dose: 200 mg Enoxaparin Sodium (Lovenox(*)) 80 mg SUBCUT Q12H [facility] Last Admin: 10/10/16 09:37 Dose: 80 mg Filgrastim-Sndz (Zarxio*) 480 mcg .SEE ORDER EVERY OTHER DAY [facility] Last Admin: 10/10/16 09:38 Dose: 480 mcg Latanoprost (Xalatan 0.005%*) 1 drop BOTH EYES BEDTIME [facility] PRN Reason: Protocol Last Admin: 10/09/16 20:42 Dose: 1 drop Magnesium Hydroxide (Milk Of Magnesia Liq*) 30 ml PO Q72HR PRN PRN Reason: CONSTIPATION Morphine Sulfate (Morphine Inj (Syringe)*) 2 mg IV Q4H PRN PRN Reason: PAIN Last Admin: 10/06/16 22:34 Dose: 2 mg Omeprazole (Prilosec Cap*) 20 mg PO DAILY@0730 [facility] Last Admin: 10/10/16 09:33 Dose: 20 mg Ondansetron HCl (Zofran Inj*) 4 mg IV Q4H PRN PRN Reason: NAUSEA/VOMITING Oxycodone/Acetaminophen (Percocet 5/325 Tab*) 1 tab PO Q4H PRN PRN Reason: Pain Last Admin: 10/10/16 09:33 Dose: 1 tab Polyethylene Glycol/Electrolytes (Miralax*) 17 gm PO DAILY [facility] Last Admin: 10/10/16 09:30 Dose: 17 gm Senna (Senokot Tab*) 1 tab PO BEDTIME [facility] Last Admin: 10/09/16 20:41 Dose: Not Given Sertraline HCl (Zoloft*) 150 mg PO DAILY [facility] Last Admin: 10/10/16 09:32 Dose: 150 mg Spironolactone (Aldactone Tab*) 12.5 mg PO DAILY [facility] Last Admin: 10/10/16 09:34 Dose: 12.5 mg Warfarin Sodium (Coumadin Tab(*)) 6 mg PO ONCE@1700 [facility] PRN Reason: Protocol Stop: 10/10/16 17:01 Warfarin Sodium (Coumadin Tab(*)) 4 mg PO DAILY@1700 [facility] PRN Reason: Protocol Vital Signs 10/09/16 10/09/16 10/09/16 15:50 17:05 19:05 Temperature 98.2 F Pulse Rate 76 Respiratory 20 16 16 Rate Blood Pressure 124/52 (mmHg) O2 Sat by Pulse 100 Oximetry 10/09/16 10/09/16 10/09/16 19:18 20:40 23:18 Temperature 99.0 F 98.8 F Pulse Rate 79 80 Respiratory 17 16 18 Rate Blood Pressure 127/53 136/61 (mmHg) O2 Sat by Pulse 95 96 Oximetry 10/09/16 10/10/16 10/10/16 23:34 01:34 03:40 Temperature 97.6 F Pulse Rate 79 Respiratory 16 16 16 Rate Blood Pressure 138/47 (mmHg) O2 Sat by Pulse 100 Oximetry 10/10/16 10/10/16 10/10/16 07:34 08:00 09:33 Temperature 98.4 F Pulse Rate 78 Respiratory 16 18 18 Rate Blood Pressure 133/69 (mmHg) O2 Sat by Pulse 96 Oximetry 10/10/16 10/10/16 12:28 12:38 Temperature 98.5 F Pulse Rate 79 65 Respiratory 16 15 Rate Blood Pressure 100/44 108/56 (mmHg) O2 Sat by Pulse 99 Oximetry Oxygen Devices in Use Now: None Appearance: Older male, OOB to chair, NAD Eyes: No Scleral Icterus Ears/Nose/Mouth/Throat: Mucous Membranes Moist Neck: NL Appearance and Movements; NL JVP Respiratory: Symmetrical Chest Expansion and Respiratory Effort, Clear to Auscultation Cardiovascular: NL Sounds; No Murmurs; No JVD, RRR Abdominal: NL Sounds; No Tenderness; No Distention Extremities: - - left hip dressing c/d/i, distally nvi Neurological: Alert and Oriented x 3 Lines/Tubes/Other Access: Clean, Dry and Intact Peripheral IV Nutrition: Taking PO's Result Diagrams: 10/10/16 11:13 10/08/16 06:46 Microbiology and Other Data: Microbiology 10/07/16 21:00 Nasal Screen MRSA (PCR)(LILI) - Final Nasal Mrsa Negative Diagnostic Imaging: CXR - NAD EKG - sinus with LAD, no change from prior studies Assess/Plan/Problems-Billing Assessment: This is a 76 yo gentleman with 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 - Patient Problems (1) Hip fracture Code(s): S72.009A - FRACTURE OF UNSP PART OF NECK OF UNSP FEMUR, INIT Comment : POD #3, management per ortho Hgb still 7.6, 2 days s/p PRBC, patient not symptomatic, continue to follow PT/OT Pain management (2) Myelodysplastic disease Code(s): C94.6 - MYELODYSPLASTIC DISEASE, NOT CLASSIFIED Comment: Treated with Neupogen and prn transfusions Hgb 7.6 s/p 2 units PRBC Continue to follow, anticipate may need additional transfusion (3) H/O: CVA (cerebrovascular accident) Code(s): Z86.73 - PRSNL HX OF TIA (TIA), AND CEREB INFRC W/O RESID DEFICITS Comment: Multiple prior infarcts, which have 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 and chronically anticoagulated with Coumadin No known h/o afib Coumadin resumed post-operatively with Lovenox bridge (4) MARY (obstructive sleep apnea) Code(s): G47.33 - OBSTRUCTIVE SLEEP APNEA (ADULT) (PEDIATRIC) Comment: Cont home BiPAP (5) Dyslipidemia Code(s): E78.5 - HYPERLIPIDEMIA, UNSPECIFIED Comment: Cont statin (6) Hypertension Code(s): I10 - ESSENTIAL (PRIMARY) HYPERTENSION Comment: Normotensive Cont home carvedilol, spironolactone Lisinopril held post-operatively (7) GERD (gastroesophageal reflux disease) Code(s): K21.9 - GASTRO-ESOPHAGEAL REFLUX DISEASE WITHOUT ESOPHAGITIS Comment : Stable Continue PPI (8) DVT prophylaxis Comment: INR 1.52, increase warfarin dose to 6 mg tonight Chronically anticoagulated with Coumadin Continue Lovenox bridge due to high stroke risk (9) Full code status Code(s): Z78.9 - OTHER SPECIFIED HEALTH STATUS Status and Disposition: Inpatient. PT/OT with anticipated rehab needs
[2016-10-10] MEDS ORDERED: Warfarin TAB(*) 6 MG PO SCH (17:00)
[2016-10-10] MEDS: Senna TAB PO SCH (21:10)
[2016-10-10] MEDS: Latanoprost 0.005%* 2.5 ml BTL BOTH EYES SCH (21:15)
[2016-10-11 05:28] LABS: Hematocrit 23 % (42-52); Hemoglobin 7.1 g/dl (14.0-18.0)
[2016-10-11 05:30] LABS: Comments Flag Yes
[2016-10-11] MEDS: Polyethylene Glycol 3350* 17 GM PACKET PO SCH (09:18)
[2016-10-11] MEDS: Aspirin Low Dose CHEW TAB* 81 MG PO SCH (09:19)
[2016-10-11] MEDS: Sertraline* 50 MG TAB PO SCH (09:20)
[2016-10-11] MEDS: Cetirizine* 10 MG TAB PO SCH (09:20)
[2016-10-11] MEDS: Atorvastatin* 10 MG TAB PO SCH (09:21)
[2016-10-11] MEDS: Omeprazole CAP* 20 MG PO SCH (09:21)
[2016-10-11] MEDS: oxyCODONE/Acetamin 5/325 MG* TAB PO PRN (09:21)
[2016-10-11] MEDS: Carvedilol TAB* 3.125 MG PO SCH ×2 (09:22→21:22)
[2016-10-11] MEDS: Docusate CAP* 100 MG PO SCH (09:22)
[2016-10-11] MEDS: Spironolactone TAB* 25 MG PO SCH (09:23)
[2016-10-11] MEDS: Enoxaparin(*) 80 MG/0.8 ML SYR SUBCUT SCH (09:24)
[2016-10-11 09:54] LABS: Comments Flag Yes; Hematocrit 22 % (42-52); Hemoglobin 6.9 g/dl (14.0-18.0); Mean Corpuscular HGB Conc 32 g/dl (31-36); Mean Corpuscular Hemoglobin 26 pg (27-31); Mean Corpuscular Volume 82 fL (80-94); Mean Platelet Volume 10 um3 (7.4-10.4); Red Blood Count 2.63 10^6/ul (4.0-5.4); Red Cell Distribution Width 21 % (10.5-15); White Blood Count 12.6 10^3/ul (3.5-10.8)
--- NOTE | 2016-10-11 10:24 | PN ---
Progress Note - Progress Note Date of Service: 10/11/16 SOAP: Subjective: []Patient seen at bedside. C/o left hip pain, especially when moved. Denies SOB , CP, dizziness. Objective: [] Vital Signs Temp 98.4 F 10/11/16 07:23 Pulse 77 10/11/16 07:23 Resp 16 10/11/16 09:21 BP 125/65 10/11/16 07:23 Pulse Ox 99 10/11/16 07:23 Intake & Output 10/10/16 10/11/16 10/11/16 18:59 06:59 18:59 Intake Total 600 1150 Output Total 425 250 Balance 175 900 Intake: Oral 600 1150 Output: Urine 425 250 Other: Estimated Void Medium # Bowel Movements 1 Estimated Stool Amount Medium # Voids 1 Laboratory Results - last 24 hr 10/10/16 10/10/16 10/11/16 11:13 11:13 05:09 WBC Cancelled RBC Cancelled Hgb 7.6 L 7.1 L Hct 24 L 23 L MCV Cancelled MCH Cancelled MCHC Cancelled RDW Cancelled Plt Count Cancelled MPV Cancelled INR (Anticoag Therapy) Blood Type O Positive Antibody Screen Negative Crossmatch See Detail 10/11/16 10/11/16 05:09 09:30 WBC 12.6 H RBC 2.63 L Hgb 6.9 L Hct 22 L MCV 82 MCH 26 L MCHC 32 RDW 21 H Plt Count 87 L MPV 10 INR (Anticoag Therapy) 1.64 H Blood Type Antibody Screen Crossmatch Right hip dressings saturated with moderate bloody drainage nazario intact, clotted hematoma along incision line with noted blistering, significant thigh hematoma and eccymotic skin, tender +DF/PF rioght ankle calf non tender and soft sensation and circulation intact distally Assessment: []s/p left hip pinning with cannulated screw fixation POD #4 myelodysplastic syndrome/ anemia Plan: []Currently on 81 ASA, 80 mg Lovenox and Coumadin. I am concerned about his left hip wound/ hematoma and potential for wound infection. Recommend decreasing anti coagulants if possible and start oral abx Change dressings 1-2 daily as needed with 4x4s and ABD prn PMRU vs SNF additional transfusion today per medicine
[2016-10-11] MEDS: Cephalexin CAP* 250 MG PO SCH ×3 (13:17→21:22)
[2016-10-11 15:51] LABS: Hematocrit 24 % (42-52)
[2016-10-11 15:52] LABS: Comments Flag Yes
[2016-10-11] MEDS ORDERED: Warfarin TAB(*) 4 MG PO SCH (17:00)
[2016-10-11] MEDS ORDERED: Warfarin TAB(*) 6 MG PO SCH (17:00)
--- NOTE | 2016-10-11 17:25 | PN ---
Subjective Date of Service: 10/11/16 Interval History: This is a 76 yo gentleman with a h/o multiple CVAs who unfortunately fractured his L hip and is now POD#4. He has now been bridged on Lovenox due to his stroke risk and unfortunately has now developed a large hematoma. Orthopedic team is concerned for his risk of infection. Patient reports tolerable pain in his hip. He denies other complaints including CP, SOB, abd pain, n/v. He did experience an episode of vomiting yesterday, but has had no similar episodes yesterday. Objective Active Medications: Acetaminophen (Tylenol Tab*) 650 mg PO Q4H PRN PRN Reason: FEVER/PAIN Last Admin: 10/08/16 20:50 Dose: 650 mg Aspirin (Aspirin Low Dose Tab*) 81 mg PO DAILY [facility] Last Admin: 10/11/16 09:19 Dose: 81 mg Atorvastatin Calcium (Lipitor*) 10 mg PO DAILY [facility] Last Admin: 10/11/16 09:21 Dose: 10 mg Bisacodyl (Dulcolax Supp*) 10 mg [place] Q72HR PRN PRN Reason: CONSTIPATION Carvedilol (Coreg Tab*) 1.5625 mg PO BID [facility] Last Admin: 10/11/16 09:22 Dose: 1.5625 mg Cephalexin HCl (Keflex Cap*) 250 mg PO QID [facility] Last Admin: 10/11/16 13:17 Dose: 250 mg Cetirizine HCl (Zyrtec*) 10 mg PO DAILY [facility] Last Admin: 10/11/16 09:20 Dose: 10 mg Docusate Sodium (Colace Cap*) 200 mg PO DAILY [facility] Last Admin: 10/11/16 09:22 Dose: 200 mg Filgrastim-Sndz (Zarxio*) 480 mcg .SEE ORDER EVERY OTHER DAY [facility] Last Admin: 10/10/16 09:38 Dose: 480 mcg Latanoprost (Xalatan 0.005%*) 1 drop BOTH EYES BEDTIME [facility] PRN Reason: Protocol Last Admin: 10/10/16 21:15 Dose: 1 drop Magnesium Hydroxide (Milk Of Magnesia Liq*) 30 ml PO Q72HR PRN PRN Reason: CONSTIPATION Morphine Sulfate (Morphine Inj (Syringe)*) 2 mg IV Q4H PRN PRN Reason: PAIN Last Admin: 10/06/16 22:34 Dose: 2 mg Omeprazole (Prilosec Cap*) 20 mg PO DAILY@0730 [facility] Last Admin: 10/11/16 09:21 Dose: 20 mg Ondansetron HCl (Zofran Inj*) 4 mg IV Q4H PRN PRN Reason: NAUSEA/VOMITING Oxycodone/Acetaminophen (Percocet 5/325 Tab*) 1 tab PO Q4H PRN PRN Reason: Pain Last Admin: 10/11/16 09:21 Dose: 1 tab Polyethylene Glycol/Electrolytes (Miralax*) 17 gm PO DAILY [facility] Last Admin: 10/11/16 09:18 Dose: 17 gm Senna (Senokot Tab*) 1 tab PO BEDTIME [facility] Last Admin: 10/10/16 21:10 Dose: 1 tab Sertraline HCl (Zoloft*) 150 mg PO DAILY [facility] Last Admin: 10/11/16 09:20 Dose: 150 mg Spironolactone (Aldactone Tab*) 12.5 mg PO DAILY [facility] Last Admin: 10/11/16 09:23 Dose: 12.5 mg Warfarin Sodium (Coumadin Tab(*)) 6 mg PO DAILY@1700 [facility] PRN Reason: Protocol Vital Signs: Temp Pulse Resp BP Pulse Ox 98.5 F 84 16 118/60 100 10/11/16 14:52 10/11/16 14:52 10/11/16 14:52 10/11/16 14:52 10/11/16 14:52 Oxygen Devices in Use Now: None Appearance: Well appearing elderly gentleman in [facility]. Sitting up in a wheelchair eating lunch Respiratory: Symmetrical Chest Expansion and Respiratory Effort, Clear to Auscultation Cardiovascular: RRR Extremities: No Edema Neurological: - - alert, orientation questions were not specifically asked, but he was appropriate in conversation Result Diagrams: 10/11/16 15:45 10/08/16 06:46 Microbiology and Other Data: Microbiology 10/07/16 21:00 Nasal Screen MRSA (PCR)(LILI) - Final Nasal Mrsa Negative Diagnostic Imaging: CXR - NAD EKG - sinus with LAD, no change from prior studies Assess/Plan/Problems-Billing Assessment: This is a 76 yo gentleman with 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 - Patient Problems (1) Hip fracture Comment: POD #4 Post op management per ortho He has unfortunately developed a large hematoma at the surgical site He is being bridged with Lovenox to a therapeutic INR Patient's is hesistent to stop LOvenox due to his stroke risk, discussed case with Dr Fernandes who is agreeable to stop the Lovenox due to hematoma formation. After Dr Fernandes's endorsement, patient's is agreeable. Will plan to cont ASA and Coumadin with daily INR monitoring, but Lovenox discontinued at this time (2) Acute blood loss anemia Comment: He has a chronic anemia related to his myelodyplastic disease, but did not respond as expected to his post-op transfusion of 2U Hbg fell to 6.9 g/dl this am, transfusing an additional 1U PRBCs (3) Myelodysplastic disease Comment: Treated with Neupogen and prn transfusions Plts stable at this time (4) H/O: CVA (cerebrovascular accident) Comment: Multiple prior infarcts, which have 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 and chronically anticoagulated with Coumadin No known h/o afib Coumadin resumed post-operatively with Lovenox bridge Lovenox now d/c'd d/t hematoma formation with Coumadin continued, INR subtherapeutic (5) MARY (obstructive sleep apnea) Comment: Cont home BiPAP (6) Dyslipidemia Comment: Cont statin (7) Hypertension Comment: Normotensive Cont home carvedilol, spironolactone Lisinopril held post-operatively (8) GERD (gastroesophageal reflux disease) Comment: Stable Continue PPI (9) Full code status (10) DVT prophylaxis Comment: Coumadin Stop Lovenox bridge due to hematoma formation Status and Disposition: Inpatient. Will require rehab following discharge, but anticipate 1-2 additional inpatient days.
[2016-10-11] MEDS: Senna TAB PO SCH (21:22)
[2016-10-11] MEDS: Latanoprost 0.005%* 2.5 ml BTL BOTH EYES SCH (21:24)
[2016-10-12 06:42] LABS: Hematocrit 22 % (42-52); Hemoglobin 7.4 g/dl (14.0-18.0); Mean Corpuscular HGB Conc 33 g/dl (31-36); Mean Corpuscular Hemoglobin 28 pg (27-31); Mean Corpuscular Volume 83 fL (80-94); Mean Platelet Volume 10 um3 (7.4-10.4); Red Blood Count 2.69 10^6/ul (4.0-5.4); Red Cell Distribution Width 20 % (10.5-15)
[2016-10-12 06:44] LABS: Comments Flag Yes
[2016-10-12 06:54] LABS: Calcium 8.8 mg/dL (8.6-10.3); EGFR African American 131.6 (>60); EGFR Non-African American 102.3 (>60)
[2016-10-12] MEDS: Aspirin Low Dose CHEW TAB* 81 MG PO SCH (09:23)
[2016-10-12] MEDS: Omeprazole CAP* 20 MG PO SCH (09:23)
[2016-10-12] MEDS: Cetirizine* 10 MG TAB PO SCH (09:23)
[2016-10-12] MEDS: Spironolactone TAB* 25 MG PO SCH (09:23)
[2016-10-12] MEDS: Sertraline* 50 MG TAB PO SCH (09:23)
[2016-10-12] MEDS: Docusate CAP* 100 MG PO SCH (09:23)
[2016-10-12] MEDS: Carvedilol TAB* 3.125 MG PO SCH ×2 (09:24→21:09)
[2016-10-12] MEDS: Atorvastatin* 10 MG TAB PO SCH (09:24)
[2016-10-12] MEDS: Cephalexin CAP* 250 MG PO SCH ×4 (09:29→21:09)
[2016-10-12] MEDS: Polyethylene Glycol 3350* 17 GM PACKET PO SCH (09:31)
[2016-10-12] MEDS: FILGRASTIM-SNDZ* 480 MCG/0.8 ML SYRINGE SCH (09:44)
--- NOTE | 2016-10-12 10:45 | PN ---
Progress Note - Progress Note Date of Service: 10/12/16 SOAP: Subjective: []Patient seen OOB in wheelchair. No new complaints. Denies SOB/ dizziness. His Lovenox has been discontinued by medicine, as requested, due to the draining hematoma from his surgical wound. Objective: [] Vital Signs Temp 99.0 F 10/12/16 07:32 Pulse 84 10/12/16 07:32 Resp 16 10/12/16 07:32 BP 110/56 10/12/16 07:32 Pulse Ox 97 10/12/16 07:32 Intake & Output 10/11/16 10/12/16 10/12/16 18:59 06:59 18:59 Intake Total 916 480 Output Total 200 250 Balance 716 230 Intake: IV Fluids 92 ns 92 Oral 515 480 Packed Cells 309 Output: Urine 200 250 Other: Estimated Void Medium Estimated Stool Amount Large Laboratory Results - last 24 hr 10/10/16 10/11/16 10/12/16 11:13 15:45 05:48 WBC RBC Hgb 8.0 L Hct 24 L MCV MCH MCHC RDW Plt Count MPV Neut % (Auto) Lymph % (Auto) [place] % (Auto) Eos % (Auto) Baso % (Auto) Absolute Neuts (auto) Absolute Lymphs (auto) Absolute Monos (auto) Absolute Eos (auto) Absolute Basos (auto) Absolute Nucleated RBC Nucleated RBC % INR (Anticoag Therapy) 2.16 H Sodium Potassium Chloride Carbon Dioxide Anion Gap BUN Creatinine Est GFR ( Amer) Est GFR (Non-Af Amer) BUN/Creatinine Ratio Glucose Calcium Blood Type O Positive Antibody Screen Negative Crossmatch See Detail 10/12/16 10/12/16 05:48 05:48 WBC 5.0 RBC 2.69 L Hgb 7.4 L Hct 22 L MCV 83 MCH 28 MCHC 33 RDW 20 H Plt Count 76 L MPV 10 Neut % (Auto) 73.1 Lymph % (Auto) 16.0 L [place] % (Auto) 10.2 H Eos % (Auto) 0.2 Baso % (Auto) 0.5 Absolute Neuts (auto) 3.6 Absolute Lymphs (auto) 0.8 L Absolute Monos (auto) 0.5 Absolute Eos (auto) 0 Absolute Basos (auto) 0 Absolute Nucleated RBC 0.01 Nucleated RBC % 0.3 INR (Anticoag Therapy) Sodium 136 Potassium 4.0 Chloride 103 Carbon Dioxide 29 Anion Gap 4 BUN 17 Creatinine 0.74 Est GFR ( Amer) 131.6 Est GFR (Non-Af Amer) 102.3 BUN/Creatinine Ratio 23.0 H Glucose 124 H Calcium 8.8 Blood Type Antibody Screen Crossmatch Left hip wound with continued moderate bloody drainage, ecchymosis and skin blistering, no evidence of infection. Thigh moderately swollen. Dressings changed this am. calf NT and soft +DF Assessment: []s/p left hip cannulated screw fixation POD #5 Draining left surgical wound/ hematoma Plan: []Continue current PT/OT Continue to change dressings left hip, BID/TID prn saturation Transfusions as deemed necessary by medical team Lovenox stopped, on Coumadin- INR 2.16 and 81mg ASA on Keflex 250 mg QID for prophylaxis to prevent wound infection
--- NOTE | 2016-10-12 12:01 | PN ---
Subjective Date of Service: 10/12/16 Interval History: No noted changes overnight. Patient continues to drain sanguinous fluid from surgical site. No c/o uncontrolled pain, CP, SOB, n/v. Objective Active Medications: Acetaminophen (Tylenol Tab*) 650 mg PO Q4H PRN PRN Reason: FEVER/PAIN Last Admin: 10/08/16 20:50 Dose: 650 mg Aspirin (Aspirin Low Dose Tab*) 81 mg PO DAILY [facility] Last Admin: 10/12/16 09:23 Dose: 81 mg Atorvastatin Calcium (Lipitor*) 10 mg PO DAILY [facility] Last Admin: 10/12/16 09:24 Dose: 10 mg Bisacodyl (Dulcolax Supp*) 10 mg [place] Q72HR PRN PRN Reason: CONSTIPATION Carvedilol (Coreg Tab*) 1.5625 mg PO BID [facility] Last Admin: 10/12/16 09:24 Dose: 1.5625 mg Cephalexin HCl (Keflex Cap*) 250 mg PO QID [facility] Last Admin: 10/12/16 09:29 Dose: 250 mg Cetirizine HCl (Zyrtec*) 10 mg PO DAILY [facility] Last Admin: 10/12/16 09:23 Dose: 10 mg Docusate Sodium (Colace Cap*) 200 mg PO DAILY [facility] Last Admin: 10/12/16 09:23 Dose: 200 mg Filgrastim-Sndz (Zarxio*) 480 mcg .SEE ORDER EVERY OTHER DAY [facility] Last Admin: 10/12/16 09:44 Dose: 480 mcg Latanoprost (Xalatan 0.005%*) 1 drop BOTH EYES BEDTIME [facility] PRN Reason: Protocol Last Admin: 10/11/16 21:24 Dose: 1 drop Magnesium Hydroxide (Milk Of Magnesia Liq*) 30 ml PO Q72HR PRN PRN Reason: CONSTIPATION Morphine Sulfate (Morphine Inj (Syringe)*) 2 mg IV Q4H PRN PRN Reason: PAIN Last Admin: 10/06/16 22:34 Dose: 2 mg Omeprazole (Prilosec Cap*) 20 mg PO DAILY@0730 [facility] Last Admin: 10/12/16 09:23 Dose: 20 mg Ondansetron HCl (Zofran Inj*) 4 mg IV Q4H PRN PRN Reason: NAUSEA/VOMITING Oxycodone/Acetaminophen (Percocet 5/325 Tab*) 1 tab PO Q4H PRN PRN Reason: Pain Last Admin: 10/11/16 09:21 Dose: 1 tab Polyethylene Glycol/Electrolytes (Miralax*) 17 gm PO DAILY [facility] Last Admin: 10/12/16 09:31 Dose: 17 gm Senna (Senokot Tab*) 1 tab PO BEDTIME [facility] Last Admin: 10/11/16 21:22 Dose: 1 tab Sertraline HCl (Zoloft*) 150 mg PO DAILY [facility] Last Admin: 10/12/16 09:23 Dose: 150 mg Spironolactone (Aldactone Tab*) 12.5 mg PO DAILY [facility] Last Admin: 10/12/16 09:23 Dose: 12.5 mg Warfarin Sodium (Coumadin Tab(*)) 4 mg PO DAILY@1700 [facility] PRN Reason: Protocol Vital Signs: Temp Pulse Resp BP Pulse Ox 99.0 F 84 16 110/56 97 10/12/16 07:32 10/12/16 07:32 10/12/16 07:32 10/12/16 07:32 10/12/16 07:32 Oxygen Devices in Use Now: None Appearance: Well appearing elderly male in NAD Respiratory: Symmetrical Chest Expansion and Respiratory Effort, Clear to Auscultation Cardiovascular: NL Sounds; No Murmurs; No JVD, RRR Extremities: - - L hip with a clean dressing in place, mild to moderate swelling of the thigh, no LE edema Skin: No Rash or Ulcers Neurological: - - alert, mild confusion but appropriate in conversation Result Diagrams: 10/12/16 05:48 10/12/16 05:48 Microbiology and Other Data: Microbiology 10/07/16 21:00 Nasal Screen MRSA (PCR)(LILI) - Final Nasal Mrsa Negative Diagnostic Imaging: CXR - NAD EKG - sinus with LAD, no change from prior studies Assess/Plan/Problems-Billing Assessment: This is a 76 yo gentleman with 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 - Patient Problems (1) Hip fracture Comment: POD #5 Post op management per ortho He has unfortunately developed a large hematoma at the surgical site INR is now therapeutic, Lovenox stopped yesterday evening Will plan to cont ASA and Coumadin with daily INR monitoring (2) Acute blood loss anemia Comment: He has a chronic anemia related to his myelodyplastic disease He has received 3U PRBCs, last yesterday afternoon Small drop in Hgb overnight, recheck again tomorrow am Patient is asx at this time (3) Myelodysplastic disease Comment: Treated with Neupogen and prn transfusions Plts stable at this time (4) H/O: CVA (cerebrovascular accident) Comment: Multiple prior infarcts, which have 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 and chronically anticoagulated with Coumadin No known h/o afib Coumadin resumed post-operatively with Lovenox bridge INR therapeutic, Lovenox stopped (5) MARY (obstructive sleep apnea) Comment: Cont home BiPAP (6) Dyslipidemia Comment: Cont statin (7) Hypertension Comment: Normotensive Cont home carvedilol, spironolactone Lisinopril held post-operatively (8) GERD (gastroesophageal reflux disease) Comment: Stable Continue PPI (9) Full code status (10) DVT prophylaxis Comment: Coumadin INR therapeutic Status and Disposition: Inpatient. Will require rehab following discharge. Anticipate possible dc tomorrow if Hgb remains stable
[2016-10-12] MEDS: Warfarin TAB(*) 4 MG PO SCH (17:55)
[2016-10-12] MEDS: Senna TAB PO SCH (21:09)
[2016-10-12] MEDS: Latanoprost 0.005%* 2.5 ml BTL BOTH EYES SCH (21:12)
[2016-10-13] MEDS: oxyCODONE/Acetamin 5/325 MG* TAB PO PRN ×3 (01:07→20:06)
[2016-10-13 05:44] LABS: Hematocrit 22 % (42-52); Hemoglobin 7.1 g/dl (14.0-18.0)
[2016-10-13 05:45] LABS: Comments Flag Yes
[2016-10-13] MEDS: Omeprazole CAP* 20 MG PO SCH (07:36)
[2016-10-13] MEDS: Polyethylene Glycol 3350* 17 GM PACKET PO SCH (09:54)
[2016-10-13] MEDS: Sertraline* 50 MG TAB PO SCH (09:55)
[2016-10-13] MEDS: Atorvastatin* 10 MG TAB PO SCH (09:55)
[2016-10-13] MEDS: Carvedilol TAB* 3.125 MG PO SCH ×2 (09:55→20:25)
[2016-10-13] MEDS: Cephalexin CAP* 250 MG PO SCH ×4 (09:55→20:25)
[2016-10-13] MEDS: Docusate CAP* 100 MG PO SCH (09:55)
[2016-10-13] MEDS: Aspirin Low Dose CHEW TAB* 81 MG PO SCH (09:56)
[2016-10-13] MEDS: Spironolactone TAB* 25 MG PO SCH (09:56)
[2016-10-13] MEDS: Cetirizine* 10 MG TAB PO SCH (09:56)
--- NOTE | 2016-10-13 10:30 | PN ---
Progress Note - Progress Note Date of Service: 10/13/16 SOAP: Subjective: []Patient seen OOB in wheelchair. He is unchanged orthopedically. No new complaints of pain. Objective: [] Vital Signs Temp 98.8 F 10/13/16 07:43 Pulse 79 10/13/16 07:43 Resp 16 10/13/16 07:43 BP 106/50 10/13/16 07:43 Pulse Ox 96 10/13/16 07:43 Intake & Output 10/12/16 10/13/16 10/13/16 18:59 06:59 18:59 Intake Total 1000 1250 240 Output Total 250 300 Balance 1000 1000 -60 Intake: Oral 1000 1250 240 Output: Urine 250 300 Other: Estimated Void Medium Large # Bowel Movements 1 0 Estimated Stool Amount Large # Voids 1 Laboratory Results - last 24 hr 10/10/16 10/13/16 10/13/16 11:13 05:18 05:18 Hgb 7.1 L Hct 22 L INR (Anticoag Therapy) 2.65 H Blood Type O Positive Antibody Screen Negative Crossmatch See Detail Left hip incision continues to drain clotted hematoma, moderated bloody drainage on dressings this am. Thigh slightly less swollen, still moderately ecchymotic. Wound show no evidence of infection, nazario intact. calf NT neuro intact distally Assessment: []s/p left hip cannulated screw fixation post op wound hematoma Plan: []Currently on ASA and Coumadin, Lovenox stopped secondary to hematoma Continue on Keflex 250 mg QID- recommend continuation at SNF rehab until hematoma stops draining Follow up with Dr. Pearl in 7-10 days in office.
--- NOTE | 2016-10-13 14:52 | PN ---
Subjective Date of Service: 10/13/16 Interval History: Patient offers no new concerns. Pain continues to be manageable. Dressing changes were necessary twice overnight due to saturation. No c/o cough, SOB, abd pain, n/v Objective Active Medications: Acetaminophen (Tylenol Tab*) 650 mg PO Q4H PRN PRN Reason: FEVER/PAIN Last Admin: 10/08/16 20:50 Dose: 650 mg Aspirin (Aspirin Low Dose Tab*) 81 mg PO DAILY [facility] Last Admin: 10/13/16 09:56 Dose: 81 mg Atorvastatin Calcium (Lipitor*) 10 mg PO DAILY [facility] Last Admin: 10/13/16 09:55 Dose: 10 mg Bisacodyl (Dulcolax Supp*) 10 mg [place] Q72HR PRN PRN Reason: CONSTIPATION Carvedilol (Coreg Tab*) 1.5625 mg PO BID [facility] Last Admin: 10/13/16 09:55 Dose: 1.5625 mg Cephalexin HCl (Keflex Cap*) 250 mg PO QID [facility] Last Admin: 10/13/16 13:13 Dose: 250 mg Cetirizine HCl (Zyrtec*) 10 mg PO DAILY [facility] Last Admin: 10/13/16 09:56 Dose: 10 mg Docusate Sodium (Colace Cap*) 200 mg PO DAILY [facility] Last Admin: 10/13/16 09:55 Dose: 200 mg Filgrastim-Sndz (Zarxio*) 480 mcg .SEE ORDER EVERY OTHER DAY [facility] Last Admin: 10/12/16 09:44 Dose: 480 mcg Latanoprost (Xalatan 0.005%*) 1 drop BOTH EYES BEDTIME [facility] PRN Reason: Protocol Last Admin: 10/12/16 21:12 Dose: 1 drop Magnesium Hydroxide (Milk Of Magnesia Liq*) 30 ml PO Q72HR PRN PRN Reason: CONSTIPATION Morphine Sulfate (Morphine Inj (Syringe)*) 2 mg IV Q4H PRN PRN Reason: PAIN Last Admin: 10/06/16 22:34 Dose: 2 mg Omeprazole (Prilosec Cap*) 20 mg PO DAILY@0730 [facility] Last Admin: 10/13/16 07:36 Dose: 20 mg Ondansetron HCl (Zofran Inj*) 4 mg IV Q4H PRN PRN Reason: NAUSEA/VOMITING Oxycodone/Acetaminophen (Percocet 5/325 Tab*) 1 tab PO Q4H PRN PRN Reason: Pain Last Admin: 10/13/16 01:07 Dose: 1 tab Polyethylene Glycol/Electrolytes (Miralax*) 17 gm PO DAILY [facility] Last Admin: 10/13/16 09:54 Dose: 17 gm Senna (Senokot Tab*) 1 tab PO BEDTIME [facility] Last Admin: 10/12/16 21:09 Dose: 1 tab Sertraline HCl (Zoloft*) 150 mg PO DAILY [facility] Last Admin: 10/13/16 09:55 Dose: 150 mg Spironolactone (Aldactone Tab*) 12.5 mg PO DAILY [facility] Last Admin: 10/13/16 09:56 Dose: 12.5 mg Warfarin Sodium (Coumadin Tab(*)) 4 mg PO DAILY@1700 [facility] PRN Reason: Protocol Last Admin: 10/12/16 17:55 Dose: 4 mg Vital Signs: Temp Pulse Resp BP Pulse Ox 98.2 F 81 16 122/55 99 10/13/16 14:33 10/13/16 14:33 10/13/16 14:33 10/13/16 14:33 10/13/16 14:33 Oxygen Devices in Use Now: None Appearance: Well appearing elderly gentleman in NAD Respiratory: Symmetrical Chest Expansion and Respiratory Effort, Clear to Auscultation Cardiovascular: NL Sounds; No Murmurs; No JVD, RRR Extremities: No Edema, - - clean dressing in place over L hip Skin: No Rash or Ulcers Neurological: Alert and Oriented x 3 Result Diagrams: 10/13/16 05:18 10/12/16 05:48 Microbiology and Other Data: Microbiology 10/07/16 21:00 Nasal Screen MRSA (PCR)(LILI) - Final Nasal Mrsa Negative Diagnostic Imaging: CXR - NAD EKG - sinus with LAD, no change from prior studies Assess/Plan/Problems-Billing Assessment: This is a 76 yo gentleman with 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 - Patient Problems (1) Hip fracture Comment: POD #6 Post op management per ortho He has unfortunately developed a large hematoma at the surgical site INR is now therapeutic, Lovenox stopped Will plan to cont ASA and Coumadin with daily INR monitoring (2) Acute blood loss anemia Comment: He has a chronic anemia related to his myelodyplastic disease He has received at total of 4U PRBCs postoperatively, including an additional unit given this morning Patient is asx at this time (3) Myelodysplastic disease Comment: Treated with Neupogen and prn transfusions Plts stable at this time (4) H/O: CVA (cerebrovascular accident) Comment: Multiple prior infarcts, which have 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 and chronically anticoagulated with Coumadin No known h/o afib Coumadin resumed post-operatively with Lovenox bridge INR therapeutic, Lovenox stopped (5) MARY (obstructive sleep apnea) Comment: Cont home BiPAP (6) Dyslipidemia Comment: Cont statin (7) Hypertension Comment: Normotensive Cont home carvedilol, spironolactone Lisinopril held post-operatively (8) GERD (gastroesophageal reflux disease) Comment: Stable Continue PPI (9) Full code status (10) DVT prophylaxis Comment: Coumadin INR therapeutic Status and Disposition: Inpatient. Possible dc tomorrow
[2016-10-13] MEDS: Warfarin TAB(*) 4 MG PO SCH (16:52)
[2016-10-13] MEDS: Senna TAB PO SCH (20:25)
[2016-10-13] MEDS: Latanoprost 0.005%* 2.5 ml BTL BOTH EYES SCH (20:27)
[2016-10-14 04:45] LABS: Comments Flag Yes; Hematocrit 23 % (42-52); Hemoglobin 7.8 g/dl (14.0-18.0); Mean Corpuscular HGB Conc 33 g/dl (31-36); Mean Corpuscular Hemoglobin 28 pg (27-31); Mean Corpuscular Volume 83 fL (80-94); Mean Platelet Volume 11 um3 (7.4-10.4); Red Blood Count 2.83 10^6/ul (4.0-5.4); Red Cell Distribution Width 20 % (10.5-15); White Blood Count 8.6 10^3/ul (3.5-10.8)
[2016-10-14 04:59] LABS: BUN/Creatinine Ratio 27.4 (8-20); Calcium 9.1 mg/dL (8.6-10.3); EGFR African American 133.6 (>60); EGFR Non-African American 103.9 (>60); Potassium 4.3 mmol/L (3.5-5.0)
[2016-10-14] MEDS: oxyCODONE/Acetamin 5/325 MG* TAB PO PRN (07:13)
[2016-10-14] MEDS: Omeprazole CAP* 20 MG PO SCH (07:13)
--- NOTE | 2016-10-14 09:58 | PN ---
Progress Note - Progress Note Date of Service: 10/14/16 SOAP: Subjective: []Patient seen at bedside. He feels that his thigh pain is improving when asked. No new complaints. Objective: [] Vital Signs Temp 99.2 F 10/14/16 07:41 Pulse 78 10/14/16 07:41 Resp 21 10/14/16 08:00 BP 117/51 10/14/16 07:41 Pulse Ox 95 10/14/16 07:41 Intake & Output 10/13/16 10/14/16 10/14/16 18:59 06:59 18:59 Intake Total 1768 680 Output Total 650 0 150 Balance 1118 680 -150 Intake: IV Fluids 54 ns 54 Oral 1432 680 Packed Cells 282 Output: Urine 650 0 150 Other: Estimated Void Small Large Large # Bowel Movements 1 Estimated Stool Amount Medium # Voids 2 1 Laboratory Results - last 24 hr 10/10/16 10/14/16 10/14/16 11:13 04:13 04:13 WBC 8.6 RBC 2.83 L Hgb 7.8 L Hct 23 L MCV 83 MCH 28 MCHC 33 RDW 20 H Plt Count 91 L MPV 11 H Neut % (Auto) 69.3 Lymph % (Auto) 18.9 L [place] % (Auto) 11.3 H Eos % (Auto) 0.1 Baso % (Auto) 0.4 Absolute Neuts (auto) 6.0 Absolute Lymphs (auto) 1.6 Absolute Monos (auto) 1.0 H Absolute Eos (auto) 0 Absolute Basos (auto) 0 Absolute Nucleated RBC 0.01 Nucleated RBC % 0.1 Sodium 136 Potassium 4.3 Chloride 101 Carbon Dioxide 29 Anion Gap 6 BUN 20 Creatinine 0.73 Est GFR ( Amer) 133.6 Est GFR (Non-Af Amer) 103.9 BUN/Creatinine Ratio 27.4 H Glucose 119 H Calcium 9.1 Blood Type O Positive Antibody Screen Negative Crossmatch See Detail left hip dressings taken down, much less drainage, just some scant dried blood on 4x4s. Ecchymosis is beginning to improve. Still moderate hematoma under incision but I believe it is now coagulated. No evidence of wound infection. calf nontender foot pink and warm Assessment: []s/p left hip cannulated screw fixation post op wound hematoma- improving- on keflex Plan: []Continue therapy as able Keflex for prophylaxis for at least 7 more days Follow up in 7- [address] Pearl after discharge to rehab
[2016-10-14] MEDS: Polyethylene Glycol 3350* 17 GM PACKET PO SCH (10:11)
[2016-10-14] MEDS: Docusate CAP* 100 MG PO SCH (10:11)
[2016-10-14] MEDS: Aspirin Low Dose CHEW TAB* 81 MG PO SCH (10:11)
[2016-10-14] MEDS: FILGRASTIM-SNDZ* 480 MCG/0.8 ML SYRINGE SCH (10:11)
[2016-10-14] MEDS: Sertraline* 50 MG TAB PO SCH (10:11)
[2016-10-14] MEDS: Cetirizine* 10 MG TAB PO SCH (10:12)
[2016-10-14] MEDS: Carvedilol TAB* 3.125 MG PO SCH ×2 (10:12→20:49)
[2016-10-14] MEDS: Spironolactone TAB* 25 MG PO SCH (10:12)
[2016-10-14] MEDS: Atorvastatin* 10 MG TAB PO SCH (10:12)
[2016-10-14] MEDS: Cephalexin CAP* 250 MG PO SCH ×4 (10:12→20:49)
--- NOTE | 2016-10-14 14:12 | PN ---
Progress Note - Progress Note Date of Service: 10/14/16 Note: Wound vac applied with help of nursing staff to left hip incision. Good seal, vac appears to be working without leaks.
--- NOTE | 2016-10-14 16:06 | PN ---
Subjective Date of Service: 10/14/16 Interval History: Patient seen and examined at bedside. Pt states that he is feeling well but is anxious to get out of here. Denies fever, chills, shortness of breath, chest discomfort, N/V/D. Family History: Unchanged from Admission Social History: Unchanged from Admission Past Medical History: Unchanged from Admission Objective Active Medications: Acetaminophen (Tylenol Tab*) 650 mg PO Q4H PRN Reason: FEVER/PAIN Aspirin (Aspirin Low Dose Tab*) 81 mg PO DAILY [facility] Atorvastatin Calcium (Lipitor*) 10 mg PO DAILY [facility] Bisacodyl (Dulcolax Supp*) 10 mg [place] Q72HR PRN Reason: CONSTIPATION Carvedilol (Coreg Tab*) 1.5625 mg PO BID [facility] Cephalexin HCl (Keflex Cap*) 250 mg PO QID [facility] Cetirizine HCl (Zyrtec*) 10 mg PO DAILY [facility] Docusate Sodium (Colace Cap*) 200 mg PO DAILY [facility] Filgrastim-Sndz (Zarxio*) 480 mcg .SEE ORDER EVERY OTHER DAY [facility] Latanoprost (Xalatan 0.005%*) 1 drop BOTH EYES BEDTIME [facility] Reason: Protocol Magnesium Hydroxide (Milk Of Magnesia Liq*) 30 ml PO Q72HR PRN Reason: CONSTIPATION Morphine Sulfate (Morphine Inj (Syringe)*) 2 mg IV Q4H PRN Reason: PAIN Omeprazole (Prilosec Cap*) 20 mg PO DAILY@0730 [facility] Ondansetron HCl (Zofran Inj*) 4 mg IV Q4H PRN Reason: NAUSEA/VOMITING Oxycodone/Acetaminophen (Percocet 5/325 Tab*) 1 tab PO Q4H PRN Reason: Pain Polyethylene Glycol/Electrolytes (Miralax*) 17 gm PO DAILY [facility] Senna (Senokot Tab*) 1 tab PO BEDTIME [facility] Sertraline HCl (Zoloft*) 150 mg PO DAILY [facility] Spironolactone (Aldactone Tab*) 12.5 mg PO DAILY [facility] Warfarin Sodium (Coumadin Tab(*)) 4 mg PO DAILY@1700 [facility] Reason: Protocol Vital Signs 10/13/16 10/13/16 10/13/16 17:10 19:24 20:06 Temperature 99.3 F Pulse Rate 81 Respiratory 18 16 16 Rate Blood Pressure 116/54 (mmHg) O2 Sat by Pulse 96 Oximetry 10/13/16 10/13/16 10/13/16 20:10 22:06 23:30 Temperature 98.7 F Pulse Rate 79 Respiratory 16 16 18 Rate Blood Pressure 116/52 (mmHg) O2 Sat by Pulse 95 Oximetry 10/14/16 10/14/16 10/14/16 03:59 07:13 07:41 Temperature 98.7 F 99.2 F Pulse Rate 76 78 Respiratory 16 16 21 Rate Blood Pressure 120/44 117/51 (mmHg) O2 Sat by Pulse 96 95 Oximetry 10/14/16 10/14/16 10/14/16 08:00 09:13 11:24 Temperature 99.3 F Pulse Rate 84 Respiratory 21 16 16 Rate Blood Pressure 114/50 (mmHg) O2 Sat by Pulse 97 Oximetry Oxygen Devices in Use Now: None Appearance: NAD, laying in bed Ears/Nose/Mouth/Throat: Mucous Membranes Moist Respiratory: Symmetrical Chest Expansion and Respiratory Effort, Clear to Auscultation Cardiovascular: NL Sounds; No Murmurs; No JVD, RRR Abdominal: NL Sounds; No Tenderness; No Distention Skin: No Rash or Ulcers, - - Wound vac to left hip incision, incision well approximated with nazario intact Neurological: NL Muscle Strength and Tone, - - Alert and Oriented to Person, Place and Situation. Confused Lines/Tubes/Other Access: Clean, Dry and Intact Peripheral IV - site benign Nutrition: Taking PO's Result Diagrams: 10/14/16 04:13 10/14/16 04:13 Microbiology and Other Data: Microbiology 10/07/16 21:00 Nasal Screen MRSA (PCR)(LILI) - Final Nasal Mrsa Negative Diagnostic Imaging: CXR - NAD EKG - sinus with LAD, no change from prior studies Assess/Plan/Problems-Billing Assessment: Mr. 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 - Patient Problems (1) Hip fracture Code(s): S72.009A - FRACTURE OF UNSP PART OF NECK OF UNSP FEMUR, INIT SNOMED Code(s): 676063489 Comment: - POD #7, S/P left hip pinning. Post op management per ortho - He has unfortunately developed a large hematoma at the surgical site - INR is now therapeutic, Lovenox stopped - Continue ASA and Coumadin with daily INR monitoring (2) Acute blood loss anemia Code(s): D62 - ACUTE POSTHEMORRHAGIC ANEMIA SNOMED Code(s): 280227335 Comment: - He has a chronic anemia related to his myelodyplastic disease - He has received at total of 4U PRBCs postoperatively - Patient is asymptomatic at this time (3) Myelodysplastic disease Code(s): C94.6 - MYELODYSPLASTIC DISEASE, NOT CLASSIFIED SNOMED Code(s): 127469211 Comment: - Treated with Neupogen and prn transfusions - Plts stable at this time (4) H/O: CVA (cerebrovascular accident) Code(s): Z86.73 - PRSNL HX OF TIA (TIA), AND CEREB INFRC W/O RESID DEFICITS SNOMED Code(s): 198838460 Comment: - Multiple prior infarcts, which have 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 and chronically anticoagulated with Coumadin - No known h/o afib - Coumadin resumed post-operatively with Lovenox bridge. INR therapeutic, Lovenox stopped (5) MARY (obstructive sleep apnea) Code(s): G47.33 - OBSTRUCTIVE SLEEP APNEA (ADULT) (PEDIATRIC) SNOMED Code(s): 94412200 Comment: - Continue home BiPAP (6) Dyslipidemia Code(s): E78.5 - HYPERLIPIDEMIA, UNSPECIFIED SNOMED Code(s): 803391877 Comment: - Continue statin (7) Hypertension Code(s): I10 - ESSENTIAL (PRIMARY) HYPERTENSION SNOMED Code(s): 71026905 Comment: - Normotensive - Continue home carvedilol and spironolactone - Continue to hold Lisinopril, SBP 110's (8) GERD (gastroesophageal reflux disease) Code(s): K21.9 - GASTRO-ESOPHAGEAL REFLUX DISEASE WITHOUT ESOPHAGITIS SNOMED Code(s): 235603448 Comment: - Stable - Continue PPI (9) DVT prophylaxis Code(s): [id number] - SNOMED Code(s): 128505247 Comment: - Coumadin, INR therapeutic (10) Full code status Code(s): Z78.9 - OTHER SPECIFIED HEALTH STATUS SNOMED Code(s): 498940695 Status and Disposition: Inpatient. Possible dc tomorrow, Pt will require NH placement.
[2016-10-14] MEDS: Warfarin TAB(*) 4 MG PO SCH (17:09)
[2016-10-14] MEDS: Senna TAB PO SCH (20:49)
[2016-10-14] MEDS: Latanoprost 0.005%* 2.5 ml BTL BOTH EYES SCH (20:50)
[2016-10-15] MEDS: oxyCODONE/Acetamin 5/325 MG* TAB PO PRN ×3 (00:53→20:02)
--- NOTE | 2016-10-15 08:34 | PN ---
Subjective Date of Service: 10/15/16 Interval History: Patient seen and examined at bedside. Denies fever, chills, shortness of breath , chest discomfort, N/V/D. Pt states that his pain is controlled. Family History: Unchanged from Admission Social History: Unchanged from Admission Past Medical History: Unchanged from Admission Objective Active Medications: Acetaminophen (Tylenol Tab*) 650 mg PO Q4H PRN Reason: FEVER/PAIN Aspirin (Aspirin Low Dose Tab*) 81 mg PO DAILY [facility] Atorvastatin Calcium (Lipitor*) 10 mg PO DAILY [facility] Bisacodyl (Dulcolax Supp*) 10 mg [place] Q72HR PRN Reason: CONSTIPATION Carvedilol (Coreg Tab*) 1.5625 mg PO BID [facility] Cephalexin HCl (Keflex Cap*) 250 mg PO QID [facility] Cetirizine HCl (Zyrtec*) 10 mg PO DAILY [facility] Docusate Sodium (Colace Cap*) 200 mg PO DAILY [facility] Filgrastim-Sndz (Zarxio*) 480 mcg .SEE ORDER EVERY OTHER DAY [facility] Latanoprost (Xalatan 0.005%*) 1 drop BOTH EYES BEDTIME [facility] Reason: Protocol Magnesium Hydroxide (Milk Of Magnesia Liq*) 30 ml PO Q72HR PRN Reason: CONSTIPATION Morphine Sulfate (Morphine Inj (Syringe)*) 2 mg IV Q4H PRN Reason: PAIN Omeprazole (Prilosec Cap*) 20 mg PO DAILY@0730 [facility] Ondansetron HCl (Zofran Inj*) 4 mg IV Q4H PRN Reason: NAUSEA/VOMITING Oxycodone/Acetaminophen (Percocet 5/325 Tab*) 1 tab PO Q4H PRN Reason: Pain Polyethylene Glycol/Electrolytes (Miralax*) 17 gm PO DAILY [facility] Senna (Senokot Tab*) 1 tab PO BEDTIME [facility] Sertraline HCl (Zoloft*) 150 mg PO DAILY [facility] Spironolactone (Aldactone Tab*) 12.5 mg PO DAILY [facility] Warfarin Sodium (Coumadin Tab(*)) 4 mg PO DAILY@1700 [facility] Vital Signs 10/14/16 10/14/16 10/14/16 09:13 11:24 15:58 Temperature 99.3 F 99.0 F Pulse Rate 84 88 Respiratory 16 16 16 Rate Blood Pressure 114/50 110/49 (mmHg) O2 Sat by Pulse 97 95 Oximetry 10/14/16 10/14/16 10/14/16 19:55 20:43 21:08 Temperature 100.4 F Pulse Rate 103 93 Respiratory 22 16 Rate Blood Pressure 105/40 102/47 (mmHg) O2 Sat by Pulse 94 Oximetry 10/14/16 10/15/16 10/15/16 23:52 00:53 02:48 Temperature 98.9 F Pulse Rate 79 Respiratory 18 14 16 Rate Blood Pressure 110/48 (mmHg) O2 Sat by Pulse 98 Oximetry 10/15/16 03:22 Temperature 98.4 F Pulse Rate 75 Respiratory 16 Rate Blood Pressure 104/47 (mmHg) O2 Sat by Pulse 94 Oximetry Oxygen Devices in Use Now: None Appearance: NAD, laying in bed Ears/Nose/Mouth/Throat: Mucous Membranes Moist Respiratory: Symmetrical Chest Expansion and Respiratory Effort, Clear to Auscultation Cardiovascular: NL Sounds; No Murmurs; No JVD, RRR Abdominal: NL Sounds; No Tenderness; No Distention Extremities: - - Edema to left hip Skin: - - Wound vac to left hip intact Neurological: NL Muscle Strength and Tone, - - Alert and oriented to Person, place and situation. Lines/Tubes/Other Access: Clean, Dry and Intact Peripheral IV - site benign Nutrition: Taking PO's Result Diagrams: 10/14/16 04:13 10/14/16 04:13 Microbiology and Other Data: Microbiology 10/07/16 21:00 Nasal Screen MRSA (PCR)(LILI) - Final Nasal Mrsa Negative Diagnostic Imaging: CXR - NAD EKG - sinus with LAD, no change from prior studies Assess/Plan/Problems-Billing Assessment: Mr. 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 - Patient Problems (1) Hip fracture Code(s): S72.009A - FRACTURE OF UNSP PART OF NECK OF UNSP FEMUR, INIT SNOMED Code(s): 368796617 Comment: - POD #8, S/P left hip pinning. Post op management per ortho - He has unfortunately developed a large hematoma at the surgical site - INR is now therapeutic, Lovenox stopped - Continue ASA and Coumadin with daily INR monitoring (2) Acute blood loss anemia Code(s): D62 - ACUTE POSTHEMORRHAGIC ANEMIA SNOMED Code(s): 328719389 Comment: - He has a chronic anemia related to his myelodyplastic disease - He has received at total of 4U PRBCs postoperatively - Patient is asymptomatic at this time - Check CBC in AM (3) Myelodysplastic disease Code(s): C94.6 - MYELODYSPLASTIC DISEASE, NOT CLASSIFIED SNOMED Code(s): 709404850 Comment: - Treated with Neupogen and prn transfusions - Plts stable at this time (4) H/O: CVA (cerebrovascular accident) Code(s): Z86.73 - PRSNL HX OF TIA (TIA), AND CEREB INFRC W/O RESID DEFICITS SNOMED Code(s): 576289621 Comment: - Multiple prior infarcts, which have 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 and chronically anticoagulated with Coumadin - No known h/o afib - Coumadin resumed post-operatively with Lovenox bridge. INR therapeutic, Lovenox stopped (5) MARY (obstructive sleep apnea) Code(s): G47.33 - OBSTRUCTIVE SLEEP APNEA (ADULT) (PEDIATRIC) SNOMED Code(s): 26516423 Comment: - Continue home BiPAP (6) Dyslipidemia Code(s): E78.5 - HYPERLIPIDEMIA, UNSPECIFIED SNOMED Code(s): 295306804 Comment: - Continue statin (7) Hypertension Code(s): I10 - ESSENTIAL (PRIMARY) HYPERTENSION SNOMED Code(s): 27809345 Comment: - Normotensive - Continue home carvedilol and spironolactone - Continue to hold Lisinopril, SBP 100-120's (8) GERD (gastroesophageal reflux disease) Code(s): K21.9 - GASTRO-ESOPHAGEAL REFLUX DISEASE WITHOUT ESOPHAGITIS SNOMED Code(s): 280944612 Comment: - Stable - Continue PPI (9) DVT prophylaxis Code(s): [id number] - SNOMED Code(s): 027751111 Comment: - Coumadin, INR therapeutic (10) Full code status Code(s): Z78.9 - OTHER SPECIFIED HEALTH STATUS SNOMED Code(s): 020341247 Status and Disposition: Inpatient. Pt will require NH placement, plan to discharge when a bed is available.
[2016-10-15] MEDS: Omeprazole CAP* 20 MG PO SCH (09:15)
[2016-10-15] MEDS: Carvedilol TAB* 3.125 MG PO SCH ×2 (09:15→22:19)
[2016-10-15] MEDS: Spironolactone TAB* 25 MG PO SCH (09:17)
[2016-10-15] MEDS: Cetirizine* 10 MG TAB PO SCH (09:18)
[2016-10-15] MEDS: Sertraline* 50 MG TAB PO SCH (09:18)
[2016-10-15] MEDS: Cephalexin CAP* 250 MG PO SCH ×4 (09:18→22:22)
[2016-10-15] MEDS: Atorvastatin* 10 MG TAB PO SCH (09:19)
[2016-10-15] MEDS: Polyethylene Glycol 3350* 17 GM PACKET PO SCH (09:20)
[2016-10-15] MEDS: Docusate CAP* 100 MG PO SCH (09:20)
[2016-10-15] MEDS: Aspirin Low Dose CHEW TAB* 81 MG PO SCH (09:20)
--- NOTE | 2016-10-15 10:28 | PN ---
Progress Note - Progress Note Date of Service: 10/15/16 SOAP: Subjective: 76 y/o male s/p left hip cannulated screw fixation 10/07/[address] Pearl. VSS afebrile overnight. patient c/o L thigh pain, VAC in place overnight. No other complaints/ concerns. Objective: General- Well appearing, NAD, sitting in chair comfortably MSK- VAC intact, suction holding, no output overnight. VAC dressing removed, skin breakdown noted posterior to incision. Incision intact, minimal clotted blood seen at distal incision, nazario in place. + moderate resolving ecchymosis diffuse posterior thigh, tender to touch throughout thigh. + DF/PF intact, weaker dorsi. PT 2+, neg homans b/l. sensation grossly intact b/l LEs Vital Signs Temp 98.3 F 10/15/16 07:33 Pulse 79 10/15/16 07:33 Resp 16 10/15/16 09:19 BP 105/46 10/15/16 07:33 Pulse Ox 91 10/15/16 07:33 Intake & Output 10/14/16 10/15/16 10/15/16 18:59 06:59 18:59 Intake Total 480 1020 225 Output Total 150 300 Balance 330 1020 -75 Intake: Oral 480 1020 225 Output: Urine 150 300 Other: Estimated Void Large Medium # Voids 1 1 Laboratory Results - last 24 hr 10/15/16 07:07 INR (Anticoag Therapy) 2.57 H Assessment: 76 y/o male s/p left hip cannulated screw fixation 10/07/[address] Pearl. Plan: - VAC d/c'd, will consult with Dr. Pearl for placement - Continue to monitor H&H, WBC EOD - INR theraputic, continue coumadin per hosp. - [facility] PT/ OT Active Medications Generic Name Dose Route Start Last Admin Trade Name Freq PRN Reason Stop Dose Admin Acetaminophen 650 mg 10/06/16 18:48 10/08/16 20:50 Tylenol Tab* PO 650 mg Q4H PRN Administration FEVER/PAIN Aspirin 81 mg 10/07/16 09:00 10/15/16 09:20 Aspirin Low Dose Tab* PO 81 mg DAILY [facility] Administration Atorvastatin Calcium 10 mg 10/07/16 09:00 10/15/16 09:19 Lipitor* PO 10 mg DAILY [facility] Administration Bisacodyl 10 mg 10/06/16 18:53 Dulcolax Supp* [place] Q72HR PRN CONSTIPATION Carvedilol 1.5625 mg 10/06/16 21:00 10/15/16 09:15 Coreg Tab* PO 1.5625 mg BID [facility] Administration Cephalexin HCl 250 mg 10/11/16 13:00 10/15/16 09:18 Keflex Cap* PO 250 mg QID [facility] Administration Cetirizine HCl 10 mg 10/07/16 09:00 10/15/16 09:18 Zyrtec* PO 10 mg DAILY [facility] Administration Docusate Sodium 200 mg 10/07/16 09:00 10/15/16 09:20 Colace Cap* PO 200 mg DAILY [facility] Administration Filgrastim-Sndz 480 mcg 10/08/16 09:00 10/14/16 10:11 Zarxio* .SEE ORDER 480 mcg EVERY OTHER DAY [facility] Administration Latanoprost 1 drop 10/06/16 21:00 10/14/16 20:50 Xalatan 0.005%* BOTH EYES 1 drop BEDTIME [facility] Administration Protocol Magnesium Hydroxide 30 ml 10/06/16 18:53 Milk Of Magnesia Liq* PO Q72HR PRN CONSTIPATION Morphine Sulfate 2 mg 10/06/16 18:48 10/06/16 22:34 Morphine Inj (Syringe)* IV 2 mg Q4H PRN Administration PAIN Omeprazole 20 mg 10/07/16 07:30 10/15/16 09:15 Prilosec Cap* PO 20 mg DAILY@0730 [facility] Administration Ondansetron HCl 4 mg 10/06/16 18:48 Zofran Inj* IV Q4H PRN NAUSEA/VOMITING Oxycodone/Acetaminophen 1 tab 10/06/16 18:48 10/15/16 09:19 Percocet 5/325 Tab* PO 1 tab Q4H PRN Administration Pain Polyethylene Glycol/Electrolytes 17 gm 10/07/16 09:00 10/15/16 09:20 Miralax* PO 17 gm DAILY [facility] Administration Senna 1 tab 10/06/16 21:00 10/14/16 20:49 Senokot Tab* PO 1 tab BEDTIME [facility] Administration Sertraline HCl 150 mg 10/07/16 09:00 10/15/16 09:18 Zoloft* PO 150 mg DAILY [facility] Administration Spironolactone 12.5 mg 10/07/16 09:00 10/15/16 09:17 Aldactone Tab* PO 12.5 mg DAILY [facility] Administration Warfarin Sodium 4 mg 10/12/16 17:00 10/14/16 17:09 Coumadin Tab(*) PO 4 mg DAILY@1700 [facility] Administration Protocol
[2016-10-15] MEDS: Warfarin TAB(*) 4 MG PO SCH (16:51)
[2016-10-15] MEDS: Latanoprost 0.005%* 2.5 ml BTL BOTH EYES SCH (22:18)
[2016-10-15] MEDS: Senna TAB PO SCH (22:22)
[2016-10-16] MEDS: oxyCODONE/Acetamin 5/325 MG* TAB PO PRN ×3 (04:49→17:28)
[2016-10-16 06:07] LABS: Comments Flag Yes; Hematocrit 22 % (42-52); Hemoglobin 7.1 g/dl (14.0-18.0); Mean Corpuscular HGB Conc 33 g/dl (31-36); Mean Corpuscular Hemoglobin 28 pg (27-31); Mean Corpuscular Volume 84 fL (80-94); Mean Platelet Volume 10 um3 (7.4-10.4); Red Blood Count 2.57 10^6/ul (4.0-5.4); Red Cell Distribution Width 20 % (10.5-15); White Blood Count 9.1 10^3/ul (3.5-10.8)
--- NOTE | 2016-10-16 08:48 | PN ---
Subjective Date of Service: 10/16/16 Interval History: Patient seen and examined at bedside. Pt states that he is feeling well this morning. Denies fever, chills, shortness of breath, chest discomfort, N/V/D. Pt states that his pain is controlled. Wound vac was discontinued yesterday. Family History: Unchanged from Admission Social History: Unchanged from Admission Past Medical History: Unchanged from Admission Objective Active Medications: Acetaminophen (Tylenol Tab*) 650 mg PO Q4H PRN Reason: FEVER/PAIN Aspirin (Aspirin Low Dose Tab*) 81 mg PO DAILY [facility] Atorvastatin Calcium (Lipitor*) 10 mg PO DAILY [facility] Bisacodyl (Dulcolax Supp*) 10 mg RI Q72HR PRN Reason: CONSTIPATION Carvedilol (Coreg Tab*) 1.5625 mg PO BID [facility] Cephalexin HCl (Keflex Cap*) 250 mg PO QID [facility] Cetirizine HCl (Zyrtec*) 10 mg PO DAILY [facility] Docusate Sodium (Colace Cap*) 200 mg PO DAILY [facility] Filgrastim-Sndz (Zarxio*) 480 mcg .SEE ORDER EVERY OTHER DAY [facility] Latanoprost (Xalatan 0.005%*) 1 drop BOTH EYES BEDTIME [facility] Reason: Protocol Magnesium Hydroxide (Milk Of Magnesia Liq*) 30 ml PO Q72HR PRN Reason: CONSTIPATION Morphine Sulfate (Morphine Inj (Syringe)*) 2 mg IV Q4H PRN Reason: PAIN Omeprazole (Prilosec Cap*) 20 mg PO DAILY@0730 [facility] Ondansetron HCl (Zofran Inj*) 4 mg IV Q4H PRN Reason: NAUSEA/VOMITING Oxycodone/Acetaminophen (Percocet 5/325 Tab*) 1 tab PO Q4H PRN Reason: Pain Polyethylene Glycol/Electrolytes (Miralax*) 17 gm PO DAILY [facility] Senna (Senokot Tab*) 1 tab PO BEDTIME [facility] Sertraline HCl (Zoloft*) 150 mg PO DAILY [facility] Spironolactone (Aldactone Tab*) 12.5 mg PO DAILY [facility] Warfarin Sodium (Coumadin Tab(*)) 4 mg PO DAILY@1700 [facility] Vital Signs 10/15/16 10/15/16 10/15/16 09:19 11:19 11:23 Temperature 98.3 F Pulse Rate 83 Respiratory 16 16 16 Rate Blood Pressure 122/54 (mmHg) O2 Sat by Pulse 95 Oximetry 10/15/16 10/15/16 10/15/16 14:34 20:02 20:30 Temperature 97.8 F Pulse Rate 84 Respiratory 17 20 18 Rate Blood Pressure 112/51 (mmHg) O2 Sat by Pulse 94 Oximetry 10/15/16 10/15/16 10/16/16 20:39 22:02 00:25 Temperature 99.0 F 98.3 F Pulse Rate 87 78 Respiratory 18 16 18 Rate Blood Pressure 108/50 110/53 (mmHg) O2 Sat by Pulse 96 92 Oximetry 10/16/16 10/16/16 10/16/16 00:35 03:43 04:49 Temperature 98.4 F Pulse Rate 77 Respiratory 18 18 Rate Blood Pressure 117/55 (mmHg) O2 Sat by Pulse 97 97 Oximetry 10/16/16 10/16/16 07:29 08:00 Temperature 98.3 F Pulse Rate 76 Respiratory 17 17 Rate Blood Pressure 113/50 (mmHg) O2 Sat by Pulse 97 Oximetry Oxygen Devices in Use Now: None Appearance: NAD, laying in bed Ears/Nose/Mouth/Throat: Mucous Membranes Moist Respiratory: Symmetrical Chest Expansion and Respiratory Effort, Clear to Auscultation Cardiovascular: NL Sounds; No Murmurs; No JVD, RRR Abdominal: NL Sounds; No Tenderness; No Distention Extremities: - - mild edema to left hip Skin: - - Dressing to left hip clean, dry and intact Neurological: - - Alert and Oriented to Person, Place and situation. Pt has baseline left sided weakness Nutrition: Taking PO's Result Diagrams: 10/16/16 05:50 10/14/16 04:13 Microbiology and Other Data: Microbiology 10/07/16 21:00 Nasal Screen MRSA (PCR)(LILI) - Final Nasal Mrsa Negative Diagnostic Imaging: CXR - NAD EKG - sinus with LAD, no change from prior studies Assess/Plan/Problems-Billing Assessment: Mr. 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 - Patient Problems (1) Hip fracture Code(s): S72.009A - FRACTURE OF UNSP PART OF NECK OF UNSP FEMUR, INIT SNOMED Code(s): 709534296 Comment: - POD #9, S/P left hip pinning. Post op management per ortho - He unfortunately developed a large hematoma at the surgical site - INR is now therapeutic, Lovenox stopped - Continue ASA and Coumadin with daily INR monitoring (2) Acute blood loss anemia Code(s): D62 - ACUTE POSTHEMORRHAGIC ANEMIA SNOMED Code(s): 514060179 Comment: - He has a chronic anemia related to his myelodyplastic disease - He has received at total of 4U PRBCs postoperatively - Patient is asymptomatic at this time - HH stable (3) Myelodysplastic disease Code(s): C94.6 - MYELODYSPLASTIC DISEASE, NOT CLASSIFIED SNOMED Code(s): 418985827 Comment: - Treated with Neupogen and prn transfusions - Plts stable at this time (4) H/O: CVA (cerebrovascular accident) Code(s): Z86.73 - PRSNL HX OF TIA (TIA), AND CEREB INFRC W/O RESID DEFICITS SNOMED Code(s): 794069875 Comment: - Multiple prior infarcts, which have 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 and chronically anticoagulated with Coumadin - No known h/o afib - Coumadin resumed post-operatively with Lovenox bridge. INR therapeutic, Lovenox stopped (5) MARY (obstructive sleep apnea) Code(s): G47.33 - OBSTRUCTIVE SLEEP APNEA (ADULT) (PEDIATRIC) SNOMED Code(s): 32457162 Comment: - Continue home BiPAP (6) Dyslipidemia Code(s): E78.5 - HYPERLIPIDEMIA, UNSPECIFIED SNOMED Code(s): 259997212 Comment: - Continue statin (7) Hypertension Code(s): I10 - ESSENTIAL (PRIMARY) HYPERTENSION SNOMED Code(s): 16065026 Comment: - Normotensive - Continue home carvedilol and spironolactone - Continue to hold Lisinopril, SBP 100-120's (8) GERD (gastroesophageal reflux disease) Code(s): K21.9 - GASTRO-ESOPHAGEAL REFLUX DISEASE WITHOUT ESOPHAGITIS SNOMED Code(s): 385125545 Comment: - Stable - Continue PPI (9) DVT prophylaxis Code(s): LKY1619 - SNOMED Code(s): 864192630 Comment: - Coumadin, INR therapeutic (10) Full code status Code(s): Z78.9 - OTHER SPECIFIED HEALTH STATUS SNOMED Code(s): 528116597 Status and Disposition: Inpatient. Pt will require NH placement, plan to discharge when a bed is available.
--- NOTE | 2016-10-16 08:56 | PN ---
Progress Note - Progress Note Date of Service: 10/16/16 SOAP: Subjective: patient resting comfortably with minimal complaints of pain Objective: Vital Signs Temp Pulse Resp BP Pulse Ox 98.3 F 76 17 113/50 97 10/16/16 07:29 10/16/16 07:29 10/16/16 08:00 10/16/16 07:29 10/16/16 07:29 Laboratory Last Values WBC 9.1 10^3/ul (3.5-10.8) 10/16/16 05:50 RBC 2.57 10^6/ul (4.0-5.4) L 10/16/16 05:50 Hgb 7.1 g/dl (14.0-18.0) L 10/16/16 05:50 Hct 22 % (42-52) L 10/16/16 05:50 MCV 84 fL (80-94) 10/16/16 05:50 MCH 28 pg (27-31) 10/16/16 05:50 MCHC 33 g/dl (31-36) 10/16/16 05:50 RDW 20 % (10.5-15) H 10/16/16 05:50 Plt Count 85 10^3/ul (150-450) L 10/16/16 05:50 MPV 10 um3 (7.4-10.4) 10/16/16 05:50 Immature Gran % (Auto) 15 % (0-9) H 10/06/16 18:45 Neut % (Auto) 69.3 % (38-83) 10/14/16 04:13 Lymph % (Auto) 18.9 % (25-47) L 10/14/16 04:13 Alexander % (Auto) 11.3 % (1-9) H 10/14/16 04:13 Eos % (Auto) 0.1 % (0-6) 10/14/16 04:13 Baso % (Auto) 0.4 % (0-2) 10/14/16 04:13 Absolute Neuts (auto) 6.0 10^3/ul (1.5-7.7) 10/14/16 04:13 Absolute Lymphs (auto) 1.6 10^3/ul (1.0-4.8) 10/14/16 04:13 Absolute Monos (auto) 1.0 10^3/ul (0-0.8) H 10/14/16 04:13 Absolute Eos (auto) 0 10^3/ul (0-0.6) 10/14/16 04:13 Absolute Basos (auto) 0 10^3/ul (0-0.2) 10/14/16 04:13 Absolute Nucleated RBC 0.01 10^3/ul 10/14/16 04:13 Neutrophils % 80 % (38-83) 10/06/16 18:45 Band Neutrophils % 13 % (0-8) H 10/06/16 18:45 Lymphocytes % 3 % (25-47) L 10/06/16 18:45 Monocytes % 2 % (0-13) 10/06/16 18:45 Metamyelocytes % 2 % (0-2) 10/06/16 18:45 Nucleated RBC % 0.1 10/14/16 04:13 Normal RBC Morphology Not Reportable 10/06/16 18:45 Polychromasia 1+ 10/06/16 18:45 Elliptocytes 1+ 10/06/16 18:45 INR (Anticoag Therapy) 2.69 (0.89-1.11) H 10/16/16 05:50 Sodium 136 mmol/L (133-145) 10/14/16 04:13 Potassium 4.3 mmol/L (3.5-5.0) 10/14/16 04:13 Chloride 101 mmol/L (101-111) 10/14/16 04:13 Carbon Dioxide 29 mmol/L (22-32) 10/14/16 04:13 Anion Gap 6 mmol/L (2-11) 10/14/16 04:13 BUN 20 mg/dL (6-24) 10/14/16 04:13 Creatinine 0.73 mg/dL (0.67-1.17) 10/14/16 04:13 Est GFR ( Amer) 133.6 (>60) 10/14/16 04:13 Est GFR (Non-Af Amer) 103.9 (>60) 10/14/16 04:13 BUN/Creatinine Ratio 27.4 (8-20) H 10/14/16 04:13 Glucose 119 mg/dL (70-100) H 10/14/16 04:13 POC Glucose (mg/dL) 181 mg/dL (70-100) H 10/07/16 21:54 Lactic Acid 1.4 mmol/L (0.5-2.0) 10/06/16 19:00 Calcium 9.1 mg/dL (8.6-10.3) 10/14/16 04:13 Total Bilirubin 0.30 mg/dL (0.2-1.0) 10/06/16 18:45 AST 18 U/L (13-39) 10/06/16 19:50 ALT 13 U/L (7-52) 10/06/16 18:45 Alkaline Phosphatase 171 U/L (34-104) H 10/06/16 18:45 C-Reactive Protein 30.65 mg/L (< 5.00) H 10/06/16 18:45 Total Protein 7.7 g/dL (6.4-8.9) 10/06/16 18:45 Albumin 3.7 g/dL (3.2-5.2) 10/06/16 18:45 Globulin 4.0 g/dL (2-4) 10/06/16 18:45 Albumin/Globulin Ratio 0.9 (1-3) L 10/06/16 18:45 Blood Type O Positive 10/10/16 11:13 Antibody Screen Negative 10/10/16 11:13 Crossmatch See Detail 10/10/16 11:13 incision: c/d; no drainage PE: stable, no change from pre-op Assessment: s/p cannulated screws left hip Plan: 1) continue PT/OT 2) hospitalist co-managing 3) low H&H- will continue to monitor 4) INR 2.69, hospitalist managing
[2016-10-16] MEDS: Carvedilol TAB* 3.125 MG PO SCH ×2 (09:07→20:06)
[2016-10-16] MEDS: Docusate CAP* 100 MG PO SCH (09:07)
[2016-10-16] MEDS: Cephalexin CAP* 250 MG PO SCH ×4 (09:07→20:06)
[2016-10-16] MEDS: Spironolactone TAB* 25 MG PO SCH (09:08)
[2016-10-16] MEDS: Sertraline* 50 MG TAB PO SCH (09:08)
[2016-10-16] MEDS: Cetirizine* 10 MG TAB PO SCH (09:09)
[2016-10-16] MEDS: Aspirin Low Dose CHEW TAB* 81 MG PO SCH (09:09)
[2016-10-16] MEDS: Omeprazole CAP* 20 MG PO SCH (09:09)
[2016-10-16] MEDS: Atorvastatin* 10 MG TAB PO SCH (09:09)
[2016-10-16] MEDS: Polyethylene Glycol 3350* 17 GM PACKET PO SCH (09:10)
[2016-10-16] MEDS: FILGRASTIM-SNDZ* 480 MCG/0.8 ML SYRINGE SCH (09:12)
[2016-10-16] MEDS: Magnesium Hydroxide LIQ* 30 ML UDC PO PRN (12:50)
--- NOTE | 2016-10-16 16:02 | OP ---
DATE OF SURGERY: 10/07/16 - ROOM #336 DATE OF : 36 SURGEON: Autumn Pearl MD. SQL REPORT WRITER: MARIANN Chow ANESTHESIA: General. PRE-OP DIAGNOSIS: Left hip valgus impacted femoral neck fracture. POST-OP DIAGNOSIS: Left hip valgus impacted femoral neck fracture. OPERATIVE PROCEDURE: Left hip cannulated screws. COMPLICATIONS: None. ESTIMATED BLOOD LOSS: 100 cc. IMPLANTS: Three 7.3 mm cannulated screws of the appropriate length. INDICATIONS: Jo-Ann Cramer is a 76-year-old male who has hemiplegia and limited mobility, who fell while walking to the bathroom. He sustained immediate pain and inability to weight bear comfortable. He underwent x-rays, diagnosed as possible hip fracture, presented to the hospital with a definitive diagnosis of left minimally displaced femoral neck fracture. After extensive discussion of risks and benefits of surgical versus non-operative treatment, he decided to proceed with surgical treatment. Risks including, but are not limited to bleeding, infections, damage to nerves, vessels, surrounding structures, wound nonhealing, persistent pain, nonunion, malunion, worsening arthritis, loss of mobility, risk of anesthesia, scarring, stiffness, persistent pain, risk of DVT, and then he has elected to proceed. He underwent medical risk stratification after immunization prior to surgery. DESCRIPTION OF PROCEDURE: The patient was greeted in the preoperative area by the attending surgeon. Correct extremity was marked and consent was confirmed. The patient was brought back to the operating suite and was placed in supine position on the operating table. He underwent general anesthesia endotracheal intubation after which he was appropriately positioned in the traction bed with the nonoperative leg placed in the well-leg steiner that was well padded and SCD' s on. The well-padded peroneal post was placed and the patient was brought back into traction. The left leg was placed in traction. The left arm was draped over the body. Once appropriate positioning was identified and confirmed over the C-arm and the reduction was confirmed and the x-ray gotten, the left leg was prepped and draped in the usual sterile fashion with chlorhexidine soap, scrub, and alcohol wipe. After appropriate surgical pause indicating side, site, procedure, and administration of antibiotics, the lateral incision was made over the left hip, anterior to the trochanter. The soft tissues were carefully dissected to expose the IT band which was sharply incised for layer closure. The vastus was identified and split in its fibers with care to try not to damage the vastus. The first guidewire was placed anteriorly in the neck. Once this was confirmed on the AP and lateral views, two further pins were placed approximately, one 10 mm to 15 mm apart, two were superior in the neck, one was anterior and one posterior. Once the position was confirmed, the screws were measured and the appropriate length screws were placed by first drilling the lateral cortex. This allowed for satisfactory reduction of the fracture. The final images were obtained. The wounds were copiously irrigated with sterile saline. The wounds were closed in layers with 0 Vicryl in an interrupted fashion in the IT band and 2-0 Vicryl for the subcutaneous tissues and nazario for the skin. Sterile dressings were applied and the wound was injected with 0.25% Marcaine. He was awoken from anesthesia and transferred to the PACU in stable condition. POSTOPERATIVE PLAN: He will be weightbearing as tolerated. He will be discharged on pain medications. He will restart his anticoagulation for his stroke, which was Coumadin and be on Lovenox prophylaxis until his INR is therapeutic. He will receive 24 hours of postoperative antibiotics and I will follow him back in the office 10 to 14 days and follow him in the hospital. [id number]/[facility] #: [id number] DIEGO
[2016-10-16] MEDS: Warfarin TAB(*) 4 MG PO SCH (17:29)
[2016-10-16] MEDS: Senna TAB PO SCH (20:06)
[2016-10-16] MEDS: Latanoprost 0.005%* 2.5 ml BTL BOTH EYES SCH (20:06)
[2016-10-17] MEDS: oxyCODONE/Acetamin 5/325 MG* TAB PO PRN ×3 (03:08→15:18)
[2016-10-17] MEDS: Omeprazole CAP* 20 MG PO SCH (07:25)
--- NOTE | 2016-10-17 08:42 | PN ---
Subjective Date of Service: 10/17/16 Interval History: Patient seen and examined at bedside. Pt states that he is feeling well and is anxious to get out of here. Denies fever, chills, shortness of breath, chest discomfort, N/V/D. Pt states that his pain is controlled. Family History: Unchanged from Admission Social History: Unchanged from Admission Past Medical History: Unchanged from Admission Objective Active Medications: Acetaminophen (Tylenol Tab*) 650 mg PO Q4H PRN Reason: FEVER/PAIN Aspirin (Aspirin Low Dose Tab*) 81 mg PO DAILY [facility] Atorvastatin Calcium (Lipitor*) 10 mg PO DAILY [facility] Bisacodyl (Dulcolax Supp*) 10 mg [place] Q72HR PRN Reason: CONSTIPATION Carvedilol (Coreg Tab*) 1.5625 mg PO BID [facility] Cephalexin HCl (Keflex Cap*) 250 mg PO QID [facility] Cetirizine HCl (Zyrtec*) 10 mg PO DAILY [facility] Docusate Sodium (Colace Cap*) 200 mg PO DAILY [facility] Filgrastim-Sndz (Zarxio*) 480 mcg .SEE ORDER EVERY OTHER DAY [facility] Latanoprost (Xalatan 0.005%*) 1 drop BOTH EYES BEDTIME [facility] Reason: Protocol Magnesium Hydroxide (Milk Of Magnesia Liq*) 30 ml PO Q72HR PRN Reason: CONSTIPATION Morphine Sulfate (Morphine Inj (Syringe)*) 2 mg IV Q4H PRN Reason: PAIN Omeprazole (Prilosec Cap*) 20 mg PO DAILY@0730 [facility] Ondansetron HCl (Zofran Inj*) 4 mg IV Q4H PRN Reason: NAUSEA/VOMITING Oxycodone/Acetaminophen (Percocet 5/325 Tab*) 1 tab PO Q4H PRN Reason: Pain Polyethylene Glycol/Electrolytes (Miralax*) 17 gm PO DAILY [facility] Senna (Senokot Tab*) 1 tab PO BEDTIME [facility] Sertraline HCl (Zoloft*) 150 mg PO DAILY [facility] Spironolactone (Aldactone Tab*) 12.5 mg PO DAILY [facility] Warfarin Sodium (Coumadin Tab(*)) 4 mg PO DAILY@1700 [facility] Vital Signs 10/16/16 10/16/16 10/16/16 11:24 12:06 14:06 Temperature 98.2 F Pulse Rate 97 Respiratory 18 18 16 Rate Blood Pressure 139/64 (mmHg) O2 Sat by Pulse 100 Oximetry 10/16/16 10/16/16 10/16/16 16:39 17:28 19:12 Temperature 97.8 F 99.0 F Pulse Rate 81 85 Respiratory 16 16 18 Rate Blood Pressure 115/51 119/52 (mmHg) O2 Sat by Pulse 94 94 Oximetry 10/16/16 10/16/16 10/16/16 19:28 20:15 23:32 Temperature 99.1 F Pulse Rate 89 Respiratory 16 16 17 Rate Blood Pressure 123/56 (mmHg) O2 Sat by Pulse 96 Oximetry 10/17/16 10/17/16 10/17/16 03:08 03:09 05:08 Temperature 98.5 F Pulse Rate 93 Respiratory 16 18 16 Rate Blood Pressure 117/46 (mmHg) O2 Sat by Pulse 94 Oximetry 10/17/16 10/17/16 07:15 08:00 Temperature 98.3 F Pulse Rate 82 Respiratory 16 16 Rate Blood Pressure 109/53 (mmHg) O2 Sat by Pulse 94 Oximetry Oxygen Devices in Use Now: None Appearance: NAD, laying in bed Ears/Nose/Mouth/Throat: Mucous Membranes Moist Respiratory: Symmetrical Chest Expansion and Respiratory Effort, Clear to Auscultation Cardiovascular: NL Sounds; No Murmurs; No JVD, RRR Abdominal: NL Sounds; No Tenderness; No Distention Extremities: - - Edema to left hip Skin: - - Dressing to left hip clean, dry and intact. Left hip incision well approximated with nazario intact Neurological: - - Alert and Oriented to Person, Place and situation. Baseline left sided-weakness Lines/Tubes/Other Access: Clean, Dry and Intact Peripheral IV - site benign Nutrition: Taking PO's Result Diagrams: 10/16/16 05:50 10/14/16 04:13 Microbiology and Other Data: Microbiology 10/07/16 21:00 Nasal Screen MRSA (PCR)(LILI) - Final Nasal Mrsa Negative Diagnostic Imaging: CXR - NAD EKG - sinus with LAD, no change from prior studies Assess/Plan/Problems-Billing Assessment: Mr. 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 - Patient Problems (1) Hip fracture Code(s): S72.009A - FRACTURE OF UNSP PART OF NECK OF UNSP FEMUR, INIT SNOMED Code(s): 892851911 Comment: - POD #10, S/P left hip pinning. Post op management per ortho - He unfortunately developed a large hematoma at the surgical site - INR is now therapeutic - Continue PT/OT - Continue ASA and Coumadin with daily INR monitoring (2) Acute blood loss anemia Code(s): D62 - ACUTE POSTHEMORRHAGIC ANEMIA SNOMED Code(s): 124510946 Comment: - He has a chronic anemia related to his myelodyplastic disease - He has received at total of 4U PRBCs postoperatively - Patient is asymptomatic at this time - HH stable (3) Myelodysplastic disease Code(s): C94.6 - MYELODYSPLASTIC DISEASE, NOT CLASSIFIED SNOMED Code(s): 322339350 Comment: - Treated with Neupogen and prn transfusions - Plts stable at this time (4) H/O: CVA (cerebrovascular accident) Code(s): Z86.73 - PRSNL HX OF TIA (TIA), AND CEREB INFRC W/O RESID DEFICITS SNOMED Code(s): 046926281 Comment: - Multiple prior infarcts, which have 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 and chronically anticoagulated with Coumadin - No known h/o afib - Coumadin resumed post-operatively with Lovenox bridge. INR therapeutic, Lovenox stopped (5) MARY (obstructive sleep apnea) Code(s): G47.33 - OBSTRUCTIVE SLEEP APNEA (ADULT) (PEDIATRIC) SNOMED Code(s): 26482606 Comment: - Continue home BiPAP (6) Dyslipidemia Code(s): E78.5 - HYPERLIPIDEMIA, UNSPECIFIED SNOMED Code(s): 892747335 Comment: - Continue statin (7) Hypertension Code(s): I10 - ESSENTIAL (PRIMARY) HYPERTENSION SNOMED Code(s): 25612535 Comment: - Normotensive - Continue home carvedilol and spironolactone - Continue to hold Lisinopril, SBP 100-120's (8) GERD (gastroesophageal reflux disease) Code(s): K21.9 - GASTRO-ESOPHAGEAL REFLUX DISEASE WITHOUT ESOPHAGITIS SNOMED Code(s): 713093033 Comment: - Stable - Continue PPI (9) DVT prophylaxis Code(s): HKG5099 - SNOMED Code(s): 780204274 Comment: - Coumadin, INR therapeutic (10) Full code status Code(s): Z78.9 - OTHER SPECIFIED HEALTH STATUS SNOMED Code(s): 632222682 Status and Disposition: Inpatient. Pt will require NH placement, plan to discharge when a bed is available.
[2016-10-17] MEDS: Polyethylene Glycol 3350* 17 GM PACKET PO SCH (09:00)
[2016-10-17] MEDS: Spironolactone TAB* 25 MG PO SCH (09:03)
[2016-10-17] MEDS: Cephalexin CAP* 250 MG PO SCH ×4 (09:03→20:23)
[2016-10-17] MEDS: Docusate CAP* 100 MG PO SCH (09:03)
[2016-10-17] MEDS: Atorvastatin* 10 MG TAB PO SCH (09:03)
[2016-10-17] MEDS: Carvedilol TAB* 3.125 MG PO SCH ×2 (09:04→20:23)
[2016-10-17] MEDS: Sertraline* 50 MG TAB PO SCH (09:04)
[2016-10-17] MEDS: Cetirizine* 10 MG TAB PO SCH (09:04)
[2016-10-17] MEDS: Aspirin Low Dose CHEW TAB* 81 MG PO SCH (09:04)
--- NOTE | 2016-10-17 09:36 | PN ---
Progress Note - Progress Note Date of Service: 10/17/16 SOAP: Subjective: pt resting comfortable with minimal complaints of pain Objective: Vital Signs Temp Pulse Resp BP Pulse Ox 98.3 F 82 18 109/53 94 10/17/16 07:15 10/17/16 07:15 10/17/16 09:09 10/17/16 07:15 10/17/16 07:15 Laboratory Last Values WBC 9.1 10^3/ul (3.5-10.8) 10/16/16 05:50 RBC 2.57 10^6/ul (4.0-5.4) L 10/16/16 05:50 Hgb 7.1 g/dl (14.0-18.0) L 10/16/16 05:50 Hct 22 % (42-52) L 10/16/16 05:50 MCV 84 fL (80-94) 10/16/16 05:50 MCH 28 pg (27-31) 10/16/16 05:50 MCHC 33 g/dl (31-36) 10/16/16 05:50 RDW 20 % (10.5-15) H 10/16/16 05:50 Plt Count 85 10^3/ul (150-450) L 10/16/16 05:50 MPV 10 um3 (7.4-10.4) 10/16/16 05:50 Immature Gran % (Auto) 15 % (0-9) H 10/06/16 18:45 Neut % (Auto) 69.3 % (38-83) 10/14/16 04:13 Lymph % (Auto) 18.9 % (25-47) L 10/14/16 04:13 Smyth % (Auto) 11.3 % (1-9) H 10/14/16 04:13 Eos % (Auto) 0.1 % (0-6) 10/14/16 04:13 Baso % (Auto) 0.4 % (0-2) 10/14/16 04:13 Absolute Neuts (auto) 6.0 10^3/ul (1.5-7.7) 10/14/16 04:13 Absolute Lymphs (auto) 1.6 10^3/ul (1.0-4.8) 10/14/16 04:13 Absolute Monos (auto) 1.0 10^3/ul (0-0.8) H 10/14/16 04:13 Absolute Eos (auto) 0 10^3/ul (0-0.6) 10/14/16 04:13 Absolute Basos (auto) 0 10^3/ul (0-0.2) 10/14/16 04:13 Absolute Nucleated RBC 0.01 10^3/ul 10/14/16 04:13 Neutrophils % 80 % (38-83) 10/06/16 18:45 Band Neutrophils % 13 % (0-8) H 10/06/16 18:45 Lymphocytes % 3 % (25-47) L 10/06/16 18:45 Monocytes % 2 % (0-13) 10/06/16 18:45 Metamyelocytes % 2 % (0-2) 10/06/16 18:45 Nucleated RBC % 0.1 10/14/16 04:13 Normal RBC Morphology Not Reportable 10/06/16 18:45 Polychromasia 1+ 10/06/16 18:45 Elliptocytes 1+ 10/06/16 18:45 INR (Anticoag Therapy) 2.74 (0.89-1.11) H 10/17/16 08:01 Sodium 136 mmol/L (133-145) 10/14/16 04:13 Potassium 4.3 mmol/L (3.5-5.0) 10/14/16 04:13 Chloride 101 mmol/L (101-111) 10/14/16 04:13 Carbon Dioxide 29 mmol/L (22-32) 10/14/16 04:13 Anion Gap 6 mmol/L (2-11) 10/14/16 04:13 BUN 20 mg/dL (6-24) 10/14/16 04:13 Creatinine 0.73 mg/dL (0.67-1.17) 10/14/16 04:13 Est GFR ( Amer) 133.6 (>60) 10/14/16 04:13 Est GFR (Non-Af Amer) 103.9 (>60) 10/14/16 04:13 BUN/Creatinine Ratio 27.4 (8-20) H 10/14/16 04:13 Glucose 119 mg/dL (70-100) H 10/14/16 04:13 POC Glucose (mg/dL) 181 mg/dL (70-100) H 10/07/16 21:54 Lactic Acid 1.4 mmol/L (0.5-2.0) 10/06/16 19:00 Calcium 9.1 mg/dL (8.6-10.3) 10/14/16 04:13 Total Bilirubin 0.30 mg/dL (0.2-1.0) 10/06/16 18:45 AST 18 U/L (13-39) 10/06/16 19:50 ALT 13 U/L (7-52) 10/06/16 18:45 Alkaline Phosphatase 171 U/L (34-104) H 10/06/16 18:45 C-Reactive Protein 30.65 mg/L (< 5.00) H 10/06/16 18:45 Total Protein 7.7 g/dL (6.4-8.9) 10/06/16 18:45 Albumin 3.7 g/dL (3.2-5.2) 10/06/16 18:45 Globulin 4.0 g/dL (2-4) 10/06/16 18:45 Albumin/Globulin Ratio 0.9 (1-3) L 10/06/16 18:45 Blood Type O Positive 10/10/16 11:13 Antibody Screen Negative 10/10/16 11:13 Crossmatch See Detail 10/10/16 11:13 incision: c/d PE: stable, no change from pre-op Assessment: s/p cannulated screw left hip Plan: 1) PT/OT 2) Coumadin/ SCD's for DVT prophylaxis 3) Hospitalist co-managing 4) Awaiting inpatient rehab transfer when bed available
[2016-10-17] MEDS: Magnesium Hydroxide LIQ* 30 ML UDC PO PRN ×2 (13:49→13:52)
[2016-10-17] MEDS: Bisacodyl SUPP* 10 MG SUPP PR PRN (15:41)
[2016-10-17] MEDS ORDERED: Warfarin TAB(*) 2 MG PO SCH (17:50)
[2016-10-17] MEDS: Warfarin TAB(*) 4 MG PO SCH (17:50)
[2016-10-17] MEDS: Warfarin TAB(*) 2 MG PO SCH (18:42)
[2016-10-17] MEDS: Senna TAB PO SCH (20:23)
[2016-10-17] MEDS: Latanoprost 0.005%* 2.5 ml BTL BOTH EYES SCH (20:23)
[2016-10-18] MEDS: oxyCODONE/Acetamin 5/325 MG* TAB PO PRN ×4 (02:27→20:32)
[2016-10-18 07:29] LABS: Comments Flag Yes; Hematocrit 20 % (42-52); Mean Corpuscular HGB Conc 32 g/dl (31-36); Mean Corpuscular Hemoglobin 27 pg (27-31); Mean Corpuscular Volume 85 fL (80-94); Mean Platelet Volume 10 um3 (7.4-10.4); Red Cell Distribution Width 21 % (10.5-15); White Blood Count 6.7 10^3/ul (3.5-10.8)
[2016-10-18 07:30] LABS: Hemoglobin 6.6 g/dl (14.0-18.0)
--- NOTE | 2016-10-18 08:17 | PN ---
Subjective Date of Service: 10/18/16 Interval History: Patient seen and examined at bedside. Pt states that he is feeling well, but is anxious to get to rehab. Denies fever, chills, shortness of breath, chest discomfort, N/V/D. Family History: Unchanged from Admission Social History: Unchanged from Admission Past Medical History: Unchanged from Admission Objective Active Medications: Acetaminophen (Tylenol Tab*) 650 mg PO Q4H PRN Reason: FEVER/PAIN Aspirin (Aspirin Low Dose Tab*) 81 mg PO DAILY [facility] Atorvastatin Calcium (Lipitor*) 10 mg PO DAILY [facility] Bisacodyl (Dulcolax Supp*) 10 mg [place] Q72HR PRN Reason: CONSTIPATION Carvedilol (Coreg Tab*) 1.5625 mg PO BID [facility] Cephalexin HCl (Keflex Cap*) 250 mg PO QID [facility] Cetirizine HCl (Zyrtec*) 10 mg PO DAILY [facility] Docusate Sodium (Colace Cap*) 200 mg PO DAILY [facility] Filgrastim-Sndz (Zarxio*) 480 mcg .SEE ORDER EVERY OTHER DAY [facility] Latanoprost (Xalatan 0.005%*) 1 drop BOTH EYES BEDTIME [facility] Reason: Protocol Magnesium Hydroxide (Milk Of Magnesia Liq*) 30 ml PO Q6HR PRN Reason: CONSTIPATION Morphine Sulfate (Morphine Inj (Syringe)*) 2 mg IV Q4H PRN Reason: PAIN Omeprazole (Prilosec Cap*) 20 mg PO DAILY@0730 [facility] Ondansetron HCl (Zofran Inj*) 4 mg IV Q4H PRN Reason: NAUSEA/VOMITING Oxycodone/Acetaminophen (Percocet 5/325 Tab*) 1 tab PO Q4H PRN Reason: Pain Polyethylene Glycol/Electrolytes (Miralax*) 17 gm PO DAILY [facility] Senna (Senokot Tab*) 1 tab PO BEDTIME [facility] Sertraline HCl (Zoloft*) 150 mg PO DAILY [facility] Spironolactone (Aldactone Tab*) 12.5 mg PO DAILY [facility] Warfarin Sodium (Coumadin Tab(*)) 2 mg PO 1700 [facility] Stop: 10/18/16 17:49 Vital Signs 10/17/16 10/17/16 10/17/16 09:09 11:09 11:18 Temperature 98.4 F Pulse Rate 78 Respiratory 18 16 16 Rate Blood Pressure 102/60 (mmHg) O2 Sat by Pulse 97 Oximetry 10/17/16 10/17/16 10/17/16 15:18 15:54 17:18 Temperature 98.8 F Pulse Rate 80 Respiratory 18 16 16 Rate Blood Pressure 124/53 (mmHg) O2 Sat by Pulse 100 Oximetry 10/17/16 10/17/16 10/18/16 19:18 20:00 00:06 Temperature 99.0 F 97.9 F Pulse Rate 84 75 Respiratory 16 16 18 Rate Blood Pressure 122/52 108/40 (mmHg) O2 Sat by Pulse 97 100 Oximetry 10/18/16 10/18/16 10/18/16 02:27 03:21 04:27 Temperature 99.8 F Pulse Rate 77 Respiratory 16 16 18 Rate Blood Pressure 136/58 (mmHg) O2 Sat by Pulse 97 Oximetry 10/18/16 07:26 Temperature 97.4 F Pulse Rate 77 Respiratory 16 Rate Blood Pressure 104/54 (mmHg) O2 Sat by Pulse 100 Oximetry Oxygen Devices in Use Now: None Appearance: NAD, laying in bed Ears/Nose/Mouth/Throat: Mucous Membranes Moist Respiratory: Symmetrical Chest Expansion and Respiratory Effort, Clear to Auscultation Cardiovascular: NL Sounds; No Murmurs; No JVD, RRR Abdominal: NL Sounds; No Tenderness; No Distention Extremities: - - Left hip edema Skin: - - Incision to left hip well approximated with nazario intact, open to air Neurological: - - Alert and Oriented to person, place and situation. Left sided weakness at baseline. Lines/Tubes/Other Access: Clean, Dry and Intact Peripheral IV - site benign Nutrition: Taking PO's Result Diagrams: 10/18/16 07:15 10/14/16 04:13 Microbiology and Other Data: Microbiology 10/07/16 21:00 Nasal Screen MRSA (PCR)(LILI) - Final Nasal Mrsa Negative Diagnostic Imaging: CXR - NAD EKG - sinus with LAD, no change from prior studies Assess/Plan/Problems-Billing Assessment: Mr. 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 - Patient Problems (1) Hip fracture Code(s): S72.009A - FRACTURE OF UNSP PART OF NECK OF UNSP FEMUR, INIT SNOMED Code(s): 125610313 Comment: - POD #11, S/P left hip pinning. 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 - He has received at total of 4U PRBCs postoperatively - Patient is asymptomatic at this time - HH fell to 6.6 this am, transfusing an additional 1U PRBCs today (3) Myelodysplastic disease Code(s): C94.6 - MYELODYSPLASTIC DISEASE, NOT CLASSIFIED SNOMED Code(s): 333599813 Comment: - Treated with Neupogen (Zaroxio autosub at [facility] [place]) and prn transfusions - Plts stable at this time (4) H/O: CVA (cerebrovascular accident) Code(s): Z86.73 - PRSNL HX OF TIA (TIA), AND CEREB INFRC W/O RESID DEFICITS SNOMED Code(s): 310382162 Comment: - Multiple prior infarcts, which have 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 and chronically anticoagulated with Coumadin - No known h/o afib - Coumadin resumed. INR therapeutic, Lovenox stopped (5) MARY (obstructive sleep apnea) Code(s): G47.33 - OBSTRUCTIVE SLEEP APNEA (ADULT) (PEDIATRIC) SNOMED Code(s): 02200606 Comment: - Continue home BiPAP (6) Dyslipidemia Code(s): E78.5 - HYPERLIPIDEMIA, UNSPECIFIED SNOMED Code(s): 971059618 Comment: - Continue statin (7) Hypertension Code(s): I10 - ESSENTIAL (PRIMARY) HYPERTENSION SNOMED Code(s): 67527691 Comment: - Normotensive - Continue home carvedilol and spironolactone - Continue to hold Lisinopril, SBP 100-120's (8) GERD (gastroesophageal reflux disease) Code(s): K21.9 - GASTRO-ESOPHAGEAL REFLUX DISEASE WITHOUT ESOPHAGITIS SNOMED Code(s): 824037060 Comment: - Stable - Continue PPI (9) DVT prophylaxis Code(s): OFH6491 - SNOMED Code(s): 472206052 Comment: - Coumadin, INR therapeutic (10) Full code status Code(s): Z78.9 - OTHER SPECIFIED HEALTH STATUS SNOMED Code(s): 115112256 Status and Disposition: Inpatient. Pt will require NH placement, plan to discharge when a bed is available.
--- NOTE | 2016-10-18 08:55 | PN ---
Progress Note - Progress Note Date of Service: 10/18/16 SOAP: Subjective: resting comfortably with minimal complaints of pain Objective: Vital Signs Temp Pulse Resp BP Pulse Ox 97.4 F 77 16 104/54 100 10/18/16 07:26 10/18/16 07:26 10/18/16 07:26 10/18/16 07:26 10/18/16 07:26 Laboratory Last Values WBC 6.7 10^3/ul (3.5-10.8) 10/18/16 07:15 RBC 2.40 10^6/ul (4.0-5.4) L 10/18/16 07:15 Hgb 6.6 g/dl (14.0-18.0) L 10/18/16 07:15 Hct 20 % (42-52) L 10/18/16 07:15 MCV 85 fL (80-94) 10/18/16 07:15 MCH 27 pg (27-31) 10/18/16 07:15 MCHC 32 g/dl (31-36) 10/18/16 07:15 RDW 21 % (10.5-15) H 10/18/16 07:15 Plt Count 70 10^3/ul (150-450) L 10/18/16 07:15 MPV 10 um3 (7.4-10.4) 10/18/16 07:15 Immature Gran % (Auto) 15 % (0-9) H 10/06/16 18:45 Neut % (Auto) 78.8 % (38-83) 10/18/16 07:15 Lymph % (Auto) 12.9 % (25-47) L 10/18/16 07:15 Mifflin % (Auto) 7.9 % (1-9) 10/18/16 07:15 Eos % (Auto) 0.1 % (0-6) 10/18/16 07:15 Baso % (Auto) 0.3 % (0-2) 10/18/16 07:15 Absolute Neuts (auto) 5.3 10^3/ul (1.5-7.7) 10/18/16 07:15 Absolute Lymphs (auto) 0.9 10^3/ul (1.0-4.8) L 10/18/16 07:15 Absolute Monos (auto) 0.5 10^3/ul (0-0.8) 10/18/16 07:15 Absolute Eos (auto) 0 10^3/ul (0-0.6) 10/18/16 07:15 Absolute Basos (auto) 0 10^3/ul (0-0.2) 10/18/16 07:15 Absolute Nucleated RBC 0.01 10^3/ul 10/18/16 07:15 Neutrophils % 80 % (38-83) 10/06/16 18:45 Band Neutrophils % 13 % (0-8) H 10/06/16 18:45 Lymphocytes % 3 % (25-47) L 10/06/16 18:45 Monocytes % 2 % (0-13) 10/06/16 18:45 Metamyelocytes % 2 % (0-2) 10/06/16 18:45 Nucleated RBC % 0.1 10/18/16 07:15 Normal RBC Morphology Not Reportable 10/06/16 18:45 Polychromasia 1+ 10/06/16 18:45 Elliptocytes 1+ 10/06/16 18:45 INR (Anticoag Therapy) 2.56 (0.89-1.11) H 10/18/16 07:15 Sodium 136 mmol/L (133-145) 10/14/16 04:13 Potassium 4.3 mmol/L (3.5-5.0) 10/14/16 04:13 Chloride 101 mmol/L (101-111) 10/14/16 04:13 Carbon Dioxide 29 mmol/L (22-32) 10/14/16 04:13 Anion Gap 6 mmol/L (2-11) 10/14/16 04:13 BUN 20 mg/dL (6-24) 10/14/16 04:13 Creatinine 0.73 mg/dL (0.67-1.17) 10/14/16 04:13 Est GFR ( Amer) 133.6 (>60) 10/14/16 04:13 Est GFR (Non-Af Amer) 103.9 (>60) 10/14/16 04:13 BUN/Creatinine Ratio 27.4 (8-20) H 10/14/16 04:13 Glucose 119 mg/dL (70-100) H 10/14/16 04:13 POC Glucose (mg/dL) 181 mg/dL (70-100) H 10/07/16 21:54 Lactic Acid 1.4 mmol/L (0.5-2.0) 10/06/16 19:00 Calcium 9.1 mg/dL (8.6-10.3) 10/14/16 04:13 Total Bilirubin 0.30 mg/dL (0.2-1.0) 10/06/16 18:45 AST 18 U/L (13-39) 10/06/16 19:50 ALT 13 U/L (7-52) 10/06/16 18:45 Alkaline Phosphatase 171 U/L (34-104) H 10/06/16 18:45 C-Reactive Protein 30.65 mg/L (< 5.00) H 10/06/16 18:45 Total Protein 7.7 g/dL (6.4-8.9) 10/06/16 18:45 Albumin 3.7 g/dL (3.2-5.2) 10/06/16 18:45 Globulin 4.0 g/dL (2-4) 10/06/16 18:45 Albumin/Globulin Ratio 0.9 (1-3) L 10/06/16 18:45 Blood Type O Positive 10/10/16 11:13 Antibody Screen Negative 10/10/16 11:13 Crossmatch See Detail 10/10/16 11:13 incision: c/d PE: stable, no changes from pre-op Assessment: s/p cannulated screws left hip Plan: 1) PT/OT 2) Hospitalist co-managing 3) Coumadin/SCD's for DVT prophylaxis 4) inpatient rehab once stable and bed available
[2016-10-18] MEDS: Polyethylene Glycol 3350* 17 GM PACKET PO SCH (10:06)
[2016-10-18] MEDS: Spironolactone TAB* 25 MG PO SCH (10:07)
[2016-10-18] MEDS: Atorvastatin* 10 MG TAB PO SCH (10:07)
[2016-10-18] MEDS: Carvedilol TAB* 3.125 MG PO SCH ×2 (10:07→20:32)
[2016-10-18] MEDS: Cetirizine* 10 MG TAB PO SCH (10:08)
[2016-10-18] MEDS: Omeprazole CAP* 20 MG PO SCH (10:08)
[2016-10-18] MEDS: Aspirin Low Dose CHEW TAB* 81 MG PO SCH (10:09)
[2016-10-18] MEDS: Sertraline* 50 MG TAB PO SCH (10:10)
[2016-10-18] MEDS: Cephalexin CAP* 250 MG PO SCH ×4 (10:11→20:33)
[2016-10-18] MEDS: Docusate CAP* 100 MG PO SCH (10:11)
[2016-10-18] MEDS: FILGRASTIM-SNDZ* 480 MCG/0.8 ML SYRINGE SCH (10:12)
[2016-10-18] MEDS ORDERED: Warfarin TAB(*) 2 MG PO SCH (17:00)
[2016-10-18] MEDS: Warfarin TAB(*) 2 MG PO SCH (17:55)
[2016-10-18] MEDS: Latanoprost 0.005%* 2.5 ml BTL BOTH EYES SCH (20:33)
[2016-10-18] MEDS: Senna TAB PO SCH (20:33)
[2016-10-19] MEDS: oxyCODONE/Acetamin 5/325 MG* TAB PO PRN ×4 (00:27→19:20)
[2016-10-19] MEDS: Omeprazole CAP* 20 MG PO SCH (06:53)
[2016-10-19 07:09] LABS: Hematocrit 23 % (42-52); Hemoglobin 7.2 g/dl (14.0-18.0)
[2016-10-19 07:13] LABS: Comments Flag Yes
--- NOTE | 2016-10-19 08:41 | PN ---
Progress Note - Progress Note Date of Service: 10/19/16 SOAP: Subjective: []Patient seen OOB in chair, ready to eat breakfast. Doing well, no new orthopedic complaints. Objective: [] Vital Signs Temp 97.5 F 10/19/16 03:42 Pulse 77 10/19/16 03:42 Resp 16 10/19/16 07:23 BP 105/37 10/19/16 03:42 Pulse Ox 97 10/19/16 03:42 Intake & Output 10/18/16 10/19/16 10/19/16 18:59 06:59 18:59 Intake Total 1069 1000 Output Total 550 200 Balance 519 800 Intake: IV Fluids 80 ns 80 Oral 680 1000 Packed Cells 309 Output: Urine 550 200 Other: Estimated Void Large Large # Bowel Movements 0 # Voids 1 Laboratory Results - last 24 hr 10/18/16 10/19/16 10/19/16 07:15 06:46 06:46 Hgb 7.2 L Hct 23 L INR (Anticoag Therapy) 2.41 H Blood Type O Positive Antibody Screen Negative Crossmatch See Detail Left hip incision open to air, no drainage, wound well approximated with nazario intact. Hematoma coagulated, moderate ecchymosis. sensation intact distally Assessment: []s/p left hip cannulated screw fixation POD#12 Plan: []Continue current care Await SNF bed offer
[2016-10-19] MEDS: Polyethylene Glycol 3350* 17 GM PACKET PO SCH (09:41)
[2016-10-19] MEDS: Carvedilol TAB* 3.125 MG PO SCH ×2 (09:42→21:43)
[2016-10-19] MEDS: Cephalexin CAP* 250 MG PO SCH ×4 (09:42→21:43)
[2016-10-19] MEDS: Cetirizine* 10 MG TAB PO SCH (09:42)
[2016-10-19] MEDS: Spironolactone TAB* 25 MG PO SCH (09:44)
[2016-10-19] MEDS: Aspirin Low Dose CHEW TAB* 81 MG PO SCH (09:45)
[2016-10-19] MEDS: Docusate CAP* 100 MG PO SCH (09:46)
[2016-10-19] MEDS: Atorvastatin* 10 MG TAB PO SCH (09:46)
[2016-10-19] MEDS: Sertraline* 50 MG TAB PO SCH (09:47)
--- NOTE | 2016-10-19 10:57 | PN ---
Subjective Date of Service: 10/19/16 Interval History: HOSPITALIST PROGRESS NOTE Patient seen and examined at bedside. He offers no complaints at this time. Working with PT, required 2 strong assist to transfer to wheelchair, but this appears to be better than last week. Family History: Unchanged from Admission Social History: Unchanged from Admission Past Medical History: Unchanged from Admission Objective Active Medications: Acetaminophen (Tylenol Tab*) 650 mg PO Q4H PRN PRN Reason: FEVER/PAIN Last Admin: 10/08/16 20:50 Dose: 650 mg Aspirin (Aspirin Low Dose Tab*) 81 mg PO DAILY REPLACED BY [facility] Last Admin: 10/19/16 09:45 Dose: 81 mg Atorvastatin Calcium (Lipitor*) 10 mg PO DAILY [facility] Last Admin: 10/19/16 09:46 Dose: 10 mg Bisacodyl (Dulcolax Supp*) 10 mg [place] Q72HR PRN PRN Reason: CONSTIPATION Last Admin: 10/17/16 15:41 Dose: 10 mg Carvedilol (Coreg Tab*) 1.5625 mg PO BID [facility] Last Admin: 10/19/16 09:42 Dose: 1.5625 mg Cephalexin HCl (Keflex Cap*) 250 mg PO QID [facility] Last Admin: 10/19/16 09:42 Dose: 250 mg Cetirizine HCl (Zyrtec*) 10 mg PO DAILY [facility] Last Admin: 10/19/16 09:42 Dose: 10 mg Docusate Sodium (Colace Cap*) 200 mg PO DAILY [facility] Last Admin: 10/19/16 09:46 Dose: 200 mg Filgrastim-Sndz (Zarxio*) 480 mcg .SEE ORDER EVERY OTHER DAY REPLACED [facility] Last Admin: 10/18/16 10:12 Dose: 480 mcg Latanoprost (Xalatan 0.005%*) 1 drop BOTH EYES BEDTIME [facility]PL[facility] PRN Reason: Protocol Last Admin: 10/18/16 20:33 Dose: 1 drop Magnesium Hydroxide (Milk Of Magnesia Liq*) 30 ml PO Q6HR PRN PRN Reason: CONSTIPATION Last Admin: 10/17/16 13:52 Dose: 30 ml Omeprazole (Prilosec Cap*) 20 mg PO DAILY@0730 [facility]PL[facility] Last Admin: 10/19/16 06:53 Dose: 20 mg Ondansetron HCl (Zofran Inj*) 4 mg IV Q4H PRN PRN Reason: NAUSEA/VOMITING Last Admin: 10/16/16 11:31 Dose: 4 mg Oxycodone/Acetaminophen (Percocet 5/325 Tab*) 1 tab PO Q4H PRN PRN Reason: Pain Last Admin: 10/19/16 07:23 Dose: 1 tab Polyethylene Glycol/Electrolytes (Miralax*) 17 gm PO DAILY [facility] Last Admin: 10/19/16 09:41 Dose: 17 gm Senna (Senokot Tab*) 1 tab PO BEDTIME [facility]PL[facility] Last Admin: 10/18/16 20:33 Dose: 1 tab Sertraline HCl (Zoloft*) 150 mg PO DAILY [facility] Last Admin: 10/19/16 09:47 Dose: 150 mg Spironolactone (Aldactone Tab*) 12.5 mg PO DAILY [facility] Last Admin: 10/19/16 09:44 Dose: 12.5 mg Warfarin Sodium (Coumadin Tab(*)) 2 mg PO MoTuThSa@1700 [facility]PLACED [facility] PRN Reason: Protocol Warfarin Sodium (Coumadin Tab(*)) 4 mg PO SuWeFr@1700 REPLACED BY [facility] PRN Reason: Protocol Vital Signs 10/19/16 10/19/16 07:38 09:23 Temperature 98.0 F Pulse Rate 80 Respiratory 16 16 Rate Blood Pressure 117/44 (mmHg) O2 Sat by Pulse 97 Oximetry Oxygen Devices in Use Now: None Appearance: Pleasant elderly male sitting up in bed in [facility]. Eyes: No Scleral Icterus Ears/Nose/Mouth/Throat: Mucous Membranes Moist Neck: Trachea Midline Extremities: - - Left hip incision is clean, no drainage, nazario intact, open to air. Good capillary refill, good pulses, sensation intact Neurological: Alert and Oriented x 3, - - Left hemiparesis Lines/Tubes/Other Access: Clean, Dry and Intact Peripheral IV Nutrition: Taking PO's Result Diagrams: 10/19/16 06:46 10/14/16 04:13 Assess/Plan/Problems-Billing Assessment: Mr. 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 - Patient Problems (1) Hip fracture Comment: - Post op management per ortho. - Continue PT/OT as tolerated. (2) Acute blood loss anemia Comment: - Has anemia at baseline related to his myelodyplastic syndrome. - Has received at total of 5 PRBCs postoperatively and Hb is up to 7.2 today. - Asymptomatic. - Continue to monitor. (3) Myelodysplastic disease Comment: - Treated with Neupogen (Zaroxio autosub at [facility] [place]) and prn transfusions. - Cell counts are stable at this time. (4) H/O: CVA (cerebrovascular accident) Comment: - Multiple prior infarcts, which have 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 and chronically anticoagulated with Coumadin. - No known h/o afib. - INR therapeutic. (5) MARY (obstructive sleep apnea) Comment: - Continue home BiPAP. (6) Dyslipidemia Comment: - Continue statin. (7) Hypertension Comment: - Controlled. - Continue Carvedilol and spironolactone. - Lisinopril on hold for now. (8) DVT prophylaxis (9) Full code status Status and Disposition: Inpatient. Awaiting SNF placement for rehab.
[2016-10-19] MEDS ORDERED: Warfarin TAB(*) 2 MG PO SCH (17:00)
[2016-10-19] MEDS: Senna TAB PO SCH (21:43)
[2016-10-19] MEDS: Latanoprost 0.005%* 2.5 ml BTL BOTH EYES SCH (21:43)
[2016-10-20 06:38] LABS: Hematocrit 22 % (42-52); Hemoglobin 7.1 g/dl (14.0-18.0); Mean Corpuscular HGB Conc 32 g/dl (31-36); Mean Corpuscular Hemoglobin 27 pg (27-31); Mean Corpuscular Volume 83 fL (80-94); Mean Platelet Volume 10 um3 (7.4-10.4); Red Blood Count 2.68 10^6/ul (4.0-5.4); Red Cell Distribution Width 22 % (10.5-15)
[2016-10-20 06:45] LABS: Comments Flag Yes
[2016-10-20 06:53] LABS: EGFR African American 131.6 (>60); EGFR Non-African American 102.3 (>60); Potassium 4.1 mmol/L (3.5-5.0)
[2016-10-20] MEDS: Cephalexin CAP* 250 MG PO SCH ×4 (09:57→22:02)
[2016-10-20] MEDS: FILGRASTIM-SNDZ* 480 MCG/0.8 ML SYRINGE SCH (09:57)
[2016-10-20] MEDS: Docusate CAP* 100 MG PO SCH (09:58)
[2016-10-20] MEDS: Sertraline* 50 MG TAB PO SCH (09:58)
[2016-10-20] MEDS: Omeprazole CAP* 20 MG PO SCH (09:58)
[2016-10-20] MEDS: Polyethylene Glycol 3350* 17 GM PACKET PO SCH (09:58)
[2016-10-20] MEDS: Carvedilol TAB* 3.125 MG PO SCH ×2 (09:58→22:03)
[2016-10-20] MEDS: Aspirin Low Dose CHEW TAB* 81 MG PO SCH (09:59)
[2016-10-20] MEDS: Spironolactone TAB* 25 MG PO SCH (09:59)
[2016-10-20] MEDS: Cetirizine* 10 MG TAB PO SCH (09:59)
[2016-10-20] MEDS: Atorvastatin* 10 MG TAB PO SCH (10:00)
--- NOTE | 2016-10-20 13:18 | PN ---
Subjective Date of Service: 10/20/16 Interval History: HOSPITALIST PROGRESS NOTE Patient seen and examined at bedside. He offers no complaints today. Family History: Unchanged from Admission Social History: Unchanged from Admission Past Medical History: Unchanged from Admission Objective Active Medications: Acetaminophen (Tylenol Tab*) 650 mg PO Q4H PRN PRN Reason: FEVER/PAIN Last Admin: 10/08/16 20:50 Dose: 650 mg Aspirin (Aspirin Low Dose Tab*) 81 mg PO DAILY [facility] Last Admin: 10/20/16 09:59 Dose: 81 mg Atorvastatin Calcium (Lipitor*) 10 mg PO DAILY [facility] Last Admin: 10/20/16 10:00 Dose: 10 mg Bisacodyl (Dulcolax Supp*) 10 mg [place] Q72HR PRN PRN Reason: CONSTIPATION Last Admin: 10/17/16 15:41 Dose: 10 mg Carvedilol (Coreg Tab*) 1.5625 mg PO BID [facility] Last Admin: 10/20/16 09:58 Dose: 1.5625 mg Cephalexin HCl (Keflex Cap*) 250 mg PO QID [facility] Last Admin: 10/20/16 09:57 Dose: 250 mg Cetirizine HCl (Zyrtec*) 10 mg PO DAILY [facility] Last Admin: 10/20/16 09:59 Dose: 10 mg Docusate Sodium (Colace Cap*) 200 mg PO DAILY [facility] Last Admin: 10/20/16 09:58 Dose: 200 mg Filgrastim-Sndz (Zarxio*) 480 mcg SUBCUT EVERY OTHER DAY [facility] Latanoprost (Xalatan 0.005%*) 1 drop BOTH EYES BEDTIME [facility] PRN Reason: Protocol Last Admin: 10/19/16 21:43 Dose: 1 drop Magnesium Hydroxide (Milk Of Magnesia Liq*) 30 ml PO Q6HR PRN PRN Reason: CONSTIPATION Last Admin: 10/17/16 13:52 Dose: 30 ml Omeprazole (Prilosec Cap*) 20 mg PO DAILY@0730 [facility] Last Admin: 10/20/16 09:58 Dose: 20 mg Ondansetron HCl (Zofran Inj*) 4 mg IV Q4H PRN PRN Reason: NAUSEA/VOMITING Last Admin: 10/16/16 11:31 Dose: 4 mg Oxycodone/Acetaminophen (Percocet 5/325 Tab*) 1 tab PO Q4H PRN PRN Reason: Pain Last Admin: 10/19/16 19:20 Dose: 1 tab Polyethylene Glycol/Electrolytes (Miralax*) 17 gm PO DAILY [facility] Last Admin: 10/20/16 09:58 Dose: 17 gm Senna (Senokot Tab*) 1 tab PO BEDTIME [facility] Last Admin: 10/19/16 21:43 Dose: 1 tab Sertraline HCl (Zoloft*) 150 mg PO DAILY [facility] Last Admin: 10/20/16 09:58 Dose: 150 mg Spironolactone (Aldactone Tab*) 12.5 mg PO DAILY [facility] Last Admin: 10/20/16 09:59 Dose: 12.5 mg Warfarin Sodium (Coumadin Tab(*)) 2 mg PO MoTuThSa@1700 [facility] PRN Reason: Protocol Last Admin: 10/19/16 17:20 Dose: 2 mg Warfarin Sodium (Coumadin Tab(*)) 4 mg PO SuWeFr@1700 [facility] PRN Reason: Protocol Vital Signs 10/19/16 10/19/16 10/20/16 21:45 23:32 03:18 Temperature 98.5 F 97.3 F Pulse Rate 86 81 Respiratory 16 14 14 Rate Blood Pressure 112/49 105/47 (mmHg) O2 Sat by Pulse 95 96 Oximetry 10/20/16 07:47 Temperature Pulse Rate 82 Respiratory 18 Rate Blood Pressure 127/58 (mmHg) O2 Sat by Pulse 100 Oximetry Oxygen Devices in Use Now: None Appearance: Elderly male lying in bed in [facility]. Eyes: No Scleral Icterus Ears/Nose/Mouth/Throat: Mucous Membranes Moist Neck: Trachea Midline Respiratory: Symmetrical Chest Expansion and Respiratory Effort, Clear to Auscultation Cardiovascular: RRR - Normal S1 and S2 Neurological: Alert and Oriented x 3, - - Left hemiparesis Lines/Tubes/Other Access: Clean, Dry and Intact Peripheral IV Nutrition: Taking PO's Result Diagrams: 10/20/16 06:24 10/20/16 06:24 Assess/Plan/Problems-Billing Assessment: Mr. 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 - Patient Problems (1) Hip fracture Comment: - Post op management per ortho. - Continue PT/OT as tolerated. (2) Acute blood loss anemia Comment: - Has anemia at baseline related to his myelodyplastic syndrome. - Will transfuse 1 more PRBC today to keep Hb>7. - Asymptomatic. - Continue to monitor. (3) Myelodysplastic disease Comment: - Treated with Neupogen (Zaroxio autosub at [facility] [place] and prn transfusions. - Cell counts are stable at this time. (4) H/O: CVA (cerebrovascular accident) Comment: - Multiple prior infarcts, which have 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 and chronically anticoagulated with Coumadin. - No known h/o afib. - INR therapeutic. (5) MARY (obstructive sleep apnea) Comment: - Continue home BiPAP. (6) Dyslipidemia Comment: - Continue statin. (7) Hypertension Comment: - Controlled. - Continue Carvedilol and spironolactone. - Lisinopril on hold for now. (8) DVT prophylaxis (9) Full code status Status and Disposition: Inpatient. Awaiting SNF placement for rehab.
[2016-10-20] MEDS: oxyCODONE/Acetamin 5/325 MG* TAB PO PRN ×2 (15:16→22:08)
[2016-10-20] MEDS ORDERED: Warfarin TAB(*) 4 MG PO SCH (17:00)
[2016-10-20] MEDS: Senna TAB PO SCH (22:03)
[2016-10-20] MEDS: Latanoprost 0.005%* 2.5 ml BTL BOTH EYES SCH (22:03)
[2016-10-21] MEDS ORDERED: oxyCODONE TAB* 5 MG TAB PO ONE (00:05)
[2016-10-21] MEDS: Omeprazole CAP* 20 MG PO SCH (07:28)
[2016-10-21] MEDS: Bisacodyl SUPP* 10 MG SUPP PR PRN (08:15)
--- NOTE | 2016-10-21 08:54 | PN ---
Progress Note - Progress Note Date of Service: 10/21/16 SOAP: Subjective: []Patient seen OOB in . Nursing reports that patient has complained of increased pain in operative leg/hip which required an additional order of narcotic pain medication last night. Asking the patient he is vague about where he is having increased pain. He has chronic low back pain and denies that this is worse. Objective: [] Vital Signs Temp 98.7 F 10/21/16 07:21 Pulse 77 10/21/16 07:21 Resp 16 10/21/16 07:43 BP 110/49 10/21/16 07:21 Pulse Ox 100 10/21/16 07:21 Intake & Output 10/20/16 10/21/16 10/21/16 18:59 06:59 18:59 Intake Total 1911 460 Output Total 350 200 Balance 1561 260 Intake: Oral 1600 460 Packed Cells 311 Output: Urine 350 200 Other: Estimated Void Large Large # Bowel Movements 0 0 # Voids 1 1 Laboratory Results - last 24 hr 10/18/16 10/21/16 07:15 06:21 INR (Anticoag Therapy) 1.68 H Blood Type O Positive Antibody Screen Negative Crossmatch See Detail Left thigh is still quite swollen, lateral proximal thigh is hard from underlying coagulated hematoma. His wound is healing well, no erythema or evidence of infection. Moderate ecchymosis remains. sensation intact distally Assessment: []s/p cannulated screw fixation left hip- 2 weeks out Post operative hematoma LLE Plan: []will check an x ray of the left hip to check hardware and fracture position Continue current care otherwise SNF rehab
[2016-10-21] MEDS: Sertraline* 50 MG TAB PO SCH (09:58)
[2016-10-21] MEDS: Carvedilol TAB* 3.125 MG PO SCH ×2 (10:00→21:53)
[2016-10-21] MEDS: oxyCODONE/Acetamin 5/325 MG* TAB PO PRN ×3 (10:01→23:20)
[2016-10-21] MEDS: Atorvastatin* 10 MG TAB PO SCH (10:01)
[2016-10-21] MEDS: Cetirizine* 10 MG TAB PO SCH (10:01)
[2016-10-21] MEDS: Cephalexin CAP* 250 MG PO SCH ×4 (10:02→21:53)
[2016-10-21] MEDS: Aspirin Low Dose CHEW TAB* 81 MG PO SCH (10:02)
[2016-10-21] MEDS: Spironolactone TAB* 25 MG PO SCH (10:02)
[2016-10-21] MEDS: Docusate CAP* 100 MG PO SCH (10:04)
[2016-10-21] MEDS: Polyethylene Glycol 3350* 17 GM PACKET PO SCH (10:05)
--- NOTE | 2016-10-21 13:20 | RAD ---
INDICATION: Traumatic fracture left femur. ORIF left [id number] COMPARISON: Left femur TECHNIQUE: An AP view of the pelvis and AP views of the hip in neutral and abducted position were obtained FINDINGS: There is orthopedic fixation of the left femoral neck fracture. The orthopedic screws. Unchanged. There is no evidence of hardware failure. The SI joints and symphysis are intact. IMPRESSION: POSTOPERATIVE CHANGES LEFT HIP. NO EVIDENCE OF HARDWARE FAILURE.
--- NOTE | 2016-10-21 13:34 | PN ---
Progress Note - Progress Note Date of Service: 10/21/16 Note: XRAY of the left hip reviewed: No change in position of cannulated screw fixation or fracture, left hip. I reviewed findings with the patient.
--- NOTE | 2016-10-21 13:51 | PN ---
Subjective Date of Service: 10/21/16 Interval History: HOSPITALIST PROGRESS NOTE Patient seen and examined at bedside. He offers no complaints at this time, but as per RN report had complained of more left hip pain when transferring today. Family History: Unchanged from Admission Social History: Unchanged from Admission Past Medical History: Unchanged from Admission Objective Active Medications: Acetaminophen (Tylenol Tab*) 650 mg PO Q4H PRN PRN Reason: FEVER/PAIN Last Admin: 10/08/16 20:50 Dose: 650 mg Aspirin (Aspirin Low Dose Tab*) 81 mg PO DAILY [facility] Last Admin: 10/21/16 10:02 Dose: 81 mg Atorvastatin Calcium (Lipitor*) 10 mg PO DAILY [facility] Last Admin: 10/21/16 10:01 Dose: 10 mg Bisacodyl (Dulcolax Supp*) 10 mg MT Q72HR PRN PRN Reason: CONSTIPATION Last Admin: 10/21/16 08:15 Dose: 10 mg Carvedilol (Coreg Tab*) 1.5625 mg PO BID [facility] Last Admin: 10/21/16 10:00 Dose: 1.5625 mg Cephalexin HCl (Keflex Cap*) 250 mg PO QID [facility] Last Admin: 10/21/16 13:02 Dose: 250 mg Cetirizine HCl (Zyrtec*) 10 mg PO DAILY [facility] Last Admin: 10/21/16 10:01 Dose: 10 mg Docusate Sodium (Colace Cap*) 200 mg PO DAILY [facility] Last Admin: 10/21/16 10:04 Dose: Not Given Filgrastim-Sndz (Zarxio*) 480 mcg SUBCUT EVERY OTHER DAY [facility] Latanoprost (Xalatan 0.005%*) 1 drop BOTH EYES BEDTIME [facility] PRN Reason: Protocol Last Admin: 10/20/16 22:03 Dose: 1 drop Magnesium Hydroxide (Milk Of Magnesia Liq*) 30 ml PO Q6HR PRN PRN Reason: CONSTIPATION Last Admin: 10/17/16 13:52 Dose: 30 ml Omeprazole (Prilosec Cap*) 20 mg PO DAILY@0730 [facility] Last Admin: 10/21/16 07:28 Dose: 20 mg Ondansetron HCl (Zofran Inj*) 4 mg IV Q4H PRN PRN Reason: NAUSEA/VOMITING Last Admin: 10/16/16 11:31 Dose: 4 mg Oxycodone/Acetaminophen (Percocet 5/325 Tab*) 1 tab PO Q4H PRN PRN Reason: Pain Last Admin: 10/21/16 10:01 Dose: 1 tab Polyethylene Glycol/Electrolytes (Miralax*) 17 gm PO DAILY [facility] Last Admin: 10/21/16 10:05 Dose: Not Given Senna (Senokot Tab*) 1 tab PO BEDTIME [facility] Last Admin: 10/20/16 22:03 Dose: 1 tab Sertraline HCl (Zoloft*) 150 mg PO DAILY [facility] Last Admin: 10/21/16 09:58 Dose: 150 mg Spironolactone (Aldactone Tab*) 12.5 mg PO DAILY [facility] Last Admin: 10/21/16 10:02 Dose: 12.5 mg Warfarin Sodium (Coumadin Tab(*)) 4 mg PO SUWETHFR@1700 [facility] PRN Reason: Protocol Warfarin Sodium (Coumadin Tab(*)) 2 mg PO MOTUSA@1700 [facility] PRN Reason: Protocol Vital Signs 10/21/16 12:14 Temperature 97.9 F Pulse Rate 77 Respiratory 18 Rate Blood Pressure 116/57 (mmHg) O2 Sat by Pulse 96 Oximetry Oxygen Devices in Use Now: None Appearance: Elderly male sitting up in a wheelchair in [facility]. Eyes: No Scleral Icterus Ears/Nose/Mouth/Throat: Mucous Membranes Moist Neck: Trachea Midline Respiratory: Symmetrical Chest Expansion and Respiratory Effort, Clear to Auscultation Cardiovascular: RRR - Normal S1 and S2 Neurological: Alert and Oriented x 3, - - Left hemiparesis Lines/Tubes/Other Access: Clean, Dry and Intact Peripheral IV Nutrition: Taking PO's Result Diagrams: 10/20/16 06:24 10/20/16 06:24 Assess/Plan/Problems-Billing Assessment: Mr. 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 - Patient Problems (1) Hip fracture Comment: - Post op management per ortho. - Continue PT/OT as tolerated. (2) Acute blood loss anemia Comment: - Has anemia at baseline related to his myelodyplastic syndrome. - Follow H/H today. - Asymptomatic. - Continue to monitor. (3) Myelodysplastic disease Comment: - Treated with Neupogen (Zaroxio autosub at [facility]) and prn transfusions. - Cell counts are stable at this time. (4) H/O: CVA (cerebrovascular accident) Comment: - Multiple prior infarcts, which have 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 and chronically anticoagulated with Coumadin. - No known h/o afib. - INR is subtherapeutic today - will increase Warfarin today. Will not add Lovenox at this time due to his h/o post op hematoma and MDS with significant anemia, but if his INR remains subtherapeutic, will have to consider bridging. (5) MARY (obstructive sleep apnea) Comment: - Continue home BiPAP. (6) Dyslipidemia Comment: - Continue statin. (7) Hypertension Comment: - Controlled. - Continue Carvedilol and spironolactone. - Lisinopril on hold for now. (8) DVT prophylaxis (9) Full code status Status and Disposition: Inpatient. Awaiting SNF placement for rehab.
[2016-10-21 14:27] LABS: Hematocrit 37 % (42-52); Hemoglobin 11.5 g/dl (14.0-18.0)
[2016-10-21 14:30] LABS: Comments Flag Yes
[2016-10-21] MEDS: Warfarin TAB(*) 4 MG PO SCH (17:27)
[2016-10-21] MEDS: Acetaminophen TAB* 325 MG PO PRN (19:15)
[2016-10-21] MEDS: Senna TAB PO SCH (21:53)
[2016-10-21] MEDS: Latanoprost 0.005%* 2.5 ml BTL BOTH EYES SCH (21:54)
--- NOTE | 2016-10-22 08:07 | PN ---
Progress Note - Progress Note Date of Service: 10/22/16 SOAP: Subjective: 76 y/o male s/p left hip cannulated screw fixation 10/07/[address] Pearl complicated by L thigh hematoma. Objective: [] Assessment: 76 y/o male s/p left hip cannulated screw fixation 10/07/[address] Pearl complicated by L thigh hematoma Plan: - Post-op anemia- S/P 1 Unit PRBC 10/20- - DVT prophly- Coumadin, INR Active Medications Generic Name Dose Route Start Last Admin Trade Name Freq PRN Reason Stop Dose Admin Acetaminophen 650 mg 10/06/16 18:48 10/21/16 19:15 Tylenol Tab* PO 650 mg Q4H PRN Administration FEVER/PAIN Aspirin 81 mg 10/07/16 09:00 10/21/16 10:02 Aspirin Low Dose Tab* PO 81 mg DAILY [facility] Administration Atorvastatin Calcium 10 mg 10/07/16 09:00 10/21/16 10:01 Lipitor* PO 10 mg DAILY [facility] Administration Bisacodyl 10 mg 10/06/16 18:53 10/21/16 08:15 Dulcolax Supp* AL 10 mg Q72HR PRN Administration CONSTIPATION Carvedilol 1.5625 mg 10/06/16 21:00 10/21/16 21:53 Coreg Tab* PO 1.5625 mg BID [facility] Administration Cephalexin HCl 250 mg 10/11/16 13:00 10/21/16 21:53 Keflex Cap* PO 250 mg QID [facility] Administration Cetirizine HCl 10 mg 10/07/16 09:00 10/21/16 10:01 Zyrtec* PO 10 mg DAILY [facility] Administration Docusate Sodium 200 mg 10/07/16 09:00 10/21/16 10:04 Colace Cap* PO Not Given DAILY [facility] Filgrastim-Sndz 480 mcg 10/20/16 10:11 Zarxio* SUBCUT EVERY OTHER DAY [facility] Latanoprost 1 drop 10/06/16 21:00 10/21/16 21:54 Xalatan 0.005%* BOTH EYES 1 drop BEDTIME [facility] Administration Protocol Magnesium Hydroxide 30 ml 10/17/16 13:38 10/17/16 13:52 Milk Of Magnesia Liq* PO 30 ml Q6HR PRN Administration CONSTIPATION Omeprazole 20 mg 10/07/16 07:30 10/21/16 07:28 Prilosec Cap* PO 20 mg DAILY@0730 [facility] Administration Ondansetron HCl 4 mg 10/06/16 18:48 10/16/16 11:31 Zofran Inj* IV 4 mg Q4H PRN Administration NAUSEA/VOMITING Oxycodone/Acetaminophen 1 tab 10/06/16 18:48 10/21/16 23:20 Percocet 5/325 Tab* PO 1 tab Q4H PRN Administration Pain Polyethylene Glycol/Electrolytes 17 gm 10/07/16 09:00 10/21/16 10:05 Miralax* PO Not Given DAILY [facility] Senna 1 tab 10/06/16 21:00 10/21/16 21:53 Senokot Tab* PO 1 tab BEDTIME [facility] Administration Sertraline HCl 150 mg 10/07/16 09:00 10/21/16 09:58 Zoloft* PO 150 mg DAILY [facility] Administration Spironolactone 12.5 mg 10/07/16 09:00 10/21/16 10:02 Aldactone Tab* PO 12.5 mg DAILY [facility] Administration Warfarin Sodium 4 mg 10/21/16 17:00 10/21/16 17:27 Coumadin Tab(*) PO 4 mg SUWETHFR@1700 [facility] Administration Protocol Warfarin Sodium 2 mg 10/23/16 17:00 Coumadin Tab(*) PO MOTUSA@1700 [facility] Protocol
[2016-10-22] MEDS: Cetirizine* 10 MG TAB PO SCH (08:50)
[2016-10-22] MEDS: Omeprazole CAP* 20 MG PO SCH (08:50)
[2016-10-22] MEDS: Atorvastatin* 10 MG TAB PO SCH (08:50)
[2016-10-22] MEDS: Aspirin Low Dose CHEW TAB* 81 MG PO SCH (08:50)
[2016-10-22] MEDS: Carvedilol TAB* 3.125 MG PO SCH ×2 (08:51→20:04)
[2016-10-22] MEDS: Cephalexin CAP* 250 MG PO SCH ×4 (08:51→20:05)
[2016-10-22] MEDS: Docusate CAP* 100 MG PO SCH (08:51)
[2016-10-22] MEDS: Polyethylene Glycol 3350* 17 GM PACKET PO SCH (08:51)
[2016-10-22] MEDS: Sertraline* 50 MG TAB PO SCH (08:51)
[2016-10-22] MEDS: Spironolactone TAB* 25 MG PO SCH (08:52)
[2016-10-22] MEDS: FILGRASTIM-SNDZ* 480 MCG/0.8 ML SYRINGE SUBCUT SCH (08:55)
[2016-10-22] MEDS: oxyCODONE/Acetamin 5/325 MG* TAB PO PRN ×2 (10:00→20:04)
[2016-10-22 10:18] LABS: Hematocrit 28 % (42-52); Mean Corpuscular HGB Conc 32 g/dl (31-36); Mean Corpuscular Hemoglobin 27 pg (27-31); Mean Corpuscular Volume 86 fL (80-94); Mean Platelet Volume 10 um3 (7.4-10.4); Red Blood Count 3.28 10^6/ul (4.0-5.4); Red Cell Distribution Width 21 % (10.5-15)
--- NOTE | 2016-10-22 15:48 | PN ---
Subjective Date of Service: 10/22/16 Interval History: HOSPITALIST PROGRESS NOTE Patient seen and examined at bedside. He offers no complaints today. Family History: Unchanged from Admission Social History: Unchanged from Admission Past Medical History: Unchanged from Admission Objective Active Medications: Acetaminophen (Tylenol Tab*) 650 mg PO Q4H PRN PRN Reason: FEVER/PAIN Last Admin: 10/21/16 19:15 Dose: 650 mg Aspirin (Aspirin Low Dose Tab*) 81 mg PO DAILY [facility] Last Admin: 10/22/16 08:50 Dose: 81 mg Atorvastatin Calcium (Lipitor*) 10 mg PO DAILY [facility] Last Admin: 10/22/16 08:50 Dose: 10 mg Bisacodyl (Dulcolax Supp*) 10 mg [place] Q72HR PRN PRN Reason: CONSTIPATION Last Admin: 10/21/16 08:15 Dose: 10 mg Carvedilol (Coreg Tab*) 1.5625 mg PO BID [facility] Last Admin: 10/22/16 08:51 Dose: 1.5625 mg Cephalexin HCl (Keflex Cap*) 250 mg PO QID [facility] Last Admin: 10/22/16 13:50 Dose: 250 mg Cetirizine HCl (Zyrtec*) 10 mg PO DAILY [facility] Last Admin: 10/22/16 08:50 Dose: 10 mg Docusate Sodium (Colace Cap*) 200 mg PO DAILY [facility] Last Admin: 10/22/16 08:51 Dose: 200 mg Filgrastim-Sndz (Zarxio*) 480 mcg SUBCUT EVERY OTHER DAY [facility] Last Admin: 10/22/16 08:55 Dose: 480 mcg Latanoprost (Xalatan 0.005%*) 1 drop BOTH EYES BEDTIME [facility] PRN Reason: Protocol Last Admin: 10/21/16 21:54 Dose: 1 drop Magnesium Hydroxide (Milk Of Magnesia Liq*) 30 ml PO Q6HR PRN PRN Reason: CONSTIPATION Last Admin: 10/17/16 13:52 Dose: 30 ml Omeprazole (Prilosec Cap*) 20 mg PO DAILY@0730 [facility] Last Admin: 10/22/16 08:50 Dose: 20 mg Ondansetron HCl (Zofran Inj*) 4 mg IV Q4H PRN PRN Reason: NAUSEA/VOMITING Last Admin: 10/16/16 11:31 Dose: 4 mg Oxycodone/Acetaminophen (Percocet 5/325 Tab*) 1 tab PO Q4H PRN PRN Reason: Pain Last Admin: 10/22/16 10:00 Dose: 1 tab Polyethylene Glycol/Electrolytes (Miralax*) 17 gm PO DAILY [facility] Last Admin: 10/22/16 08:51 Dose: 17 gm Senna (Senokot Tab*) 1 tab PO BEDTIME [facility] Last Admin: 10/21/16 21:53 Dose: 1 tab Sertraline HCl (Zoloft*) 150 mg PO DAILY [facility] Last Admin: 10/22/16 08:51 Dose: 150 mg Spironolactone (Aldactone Tab*) 12.5 mg PO DAILY [facility] Last Admin: 10/22/16 08:52 Dose: 12.5 mg Warfarin Sodium (Coumadin Tab(*)) 4 mg PO SUWETHFR@1700 [facility] PRN Reason: Protocol Last Admin: 10/21/16 17:27 Dose: 4 mg Warfarin Sodium (Coumadin Tab(*)) 2 mg PO MOTUSA@1700 [facility] PRN Reason: Protocol Vital Signs 10/22/16 10/22/16 10/22/16 08:45 10:00 12:34 Temperature 98.1 F Pulse Rate 70 Respiratory 16 16 16 Rate Blood Pressure 111/49 (mmHg) O2 Sat by Pulse 98 Oximetry Oxygen Devices in Use Now: None Appearance: Elderly gentleman lying in bed in [place]. Eyes: No Scleral Icterus Ears/Nose/Mouth/Throat: Mucous Membranes Moist Neck: Trachea Midline Respiratory: Symmetrical Chest Expansion and Respiratory Effort, Clear to Auscultation Cardiovascular: RRR - Normal S1 and S2 Abdominal: NL Sounds; No Tenderness; No Distention Neurological: Alert and Oriented x 3, NL Muscle Strength and Tone Lines/Tubes/Other Access: Clean, Dry and Intact Peripheral IV Nutrition: Taking PO's Result Diagrams: 10/22/16 09:58 10/20/16 06:24 Assess/Plan/Problems-Billing Assessment: Mr. 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 - Patient Problems (1) Hip fracture Comment: - Post op management per ortho. - Continue PT/OT as tolerated. (2) Acute blood loss anemia Comment: - Has anemia at baseline related to his myelodyplastic syndrome. - H/H 11/11 today. - Continue to monitor. (3) Myelodysplastic disease Comment: - Treated with Neupogen (Zaroxio autosub [place] [facility] and prn transfusions. - Cell counts are stable at this time. (4) H/O: CVA (cerebrovascular accident) Comment: - Multiple prior infarcts, which have 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 and chronically anticoagulated with Coumadin. - No known h/o afib. - INR up to 1.96 today. - Continue to monitor. (5) MARY (obstructive sleep apnea) Comment: - Continue home BiPAP. (6) Dyslipidemia Comment: - Continue statin. (7) Hypertension Comment: - Controlled. - Continue Carvedilol and spironolactone. - Lisinopril on hold for now. (8) DVT prophylaxis (9) Full code status Status and Disposition: Inpatient. Awaiting SNF placement for rehab. refused bed at [facility] as per CM. Will look in to other facilities.
[2016-10-22] MEDS: Warfarin TAB(*) 4 MG PO SCH (17:21)
[2016-10-22] MEDS: Senna TAB PO SCH (20:04)
[2016-10-22] MEDS: Latanoprost 0.005%* 2.5 ml BTL BOTH EYES SCH (20:05)
[2016-10-23] MEDS: Docusate CAP* 100 MG PO SCH (08:27)
[2016-10-23] MEDS: Cephalexin CAP* 250 MG PO SCH ×4 (08:27→20:22)
[2016-10-23] MEDS: Atorvastatin* 10 MG TAB PO SCH (08:27)
[2016-10-23] MEDS: Spironolactone TAB* 25 MG PO SCH (08:28)
[2016-10-23] MEDS: Aspirin Low Dose CHEW TAB* 81 MG PO SCH (08:28)
[2016-10-23] MEDS: Cetirizine* 10 MG TAB PO SCH (08:28)
[2016-10-23] MEDS: Omeprazole CAP* 20 MG PO SCH (08:28)
[2016-10-23] MEDS: Polyethylene Glycol 3350* 17 GM PACKET PO SCH (08:31)
[2016-10-23] MEDS: Sertraline* 50 MG TAB PO SCH (08:31)
[2016-10-23] MEDS: Carvedilol TAB* 3.125 MG PO SCH ×2 (08:37→20:22)
[2016-10-23] MEDS: oxyCODONE/Acetamin 5/325 MG* TAB PO PRN (10:29)
--- NOTE | 2016-10-23 11:28 | PN ---
Progress Note - Progress Note Date of Service: 10/23/16 SOAP: Subjective: Patient seen OOB in chair. Pt states that he continues to have low back pain. No other complaints at this time. Pt denies any n/v, chest pain or coughing. Objective: Left thigh has swelling present, lateral proximal thigh is hard from underlying coagulated hematoma. Wound is healing well, no erythema or evidence of infection. sensation intact distally Vital Signs Temp 98.1 F 10/23/16 07:27 Pulse 75 10/23/16 07:27 Resp 18 10/23/16 10:29 BP 117/54 10/23/16 07:27 Pulse Ox 95 10/23/16 07:27 Intake & Output 10/22/16 10/23/16 10/23/16 18:59 06:59 18:59 Intake Total 645 500 360 Output Total 575 750 Balance 70 -250 360 Intake: Oral 645 500 360 Output: Urine 575 750 Other: Estimated Void Large Large # Bowel Movements 0 # Voids 1 1 Assessment: s/p cannulated screw fixation left hip- 2 weeks out Post operative hematoma LLE Plan: 1. Continue with current care 2. Continue pain meds as needed
--- NOTE | 2016-10-23 14:36 | PN ---
Subjective Date of Service: 10/23/16 Interval History: No events overnight. He feels good. He does complain of some low back pain. Weakness is unchanged. Review of systems is limited by cognitive impairment, but he denies nausea, vomiting, chest pain, constipation, or diarrhea. Family History: Unchanged from Admission Social History: Unchanged from Admission Past Medical History: Unchanged from Admission Objective Active Medications: Acetaminophen (Tylenol Tab*) 650 mg PO Q4H PRN PRN Reason: FEVER/PAIN Last Admin: 10/21/16 19:15 Dose: 650 mg Aspirin (Aspirin Low Dose Tab*) 81 mg PO DAILY [facility] Last Admin: 10/23/16 08:28 Dose: 81 mg Atorvastatin Calcium (Lipitor*) 10 mg PO DAILY [facility] Last Admin: 10/23/16 08:27 Dose: 10 mg Bisacodyl (Dulcolax Supp*) 10 mg HI Q72HR PRN PRN Reason: CONSTIPATION Last Admin: 10/21/16 08:15 Dose: 10 mg Carvedilol (Coreg Tab*) 1.5625 mg PO BID [facility] Last Admin: 10/23/16 08:37 Dose: 1.5625 mg Cephalexin HCl (Keflex Cap*) 250 mg PO QID [facility] Last Admin: 10/23/16 13:10 Dose: 250 mg Cetirizine HCl (Zyrtec*) 10 mg PO DAILY [facility] Last Admin: 10/23/16 08:28 Dose: 10 mg Docusate Sodium (Colace Cap*) 200 mg PO DAILY [facility] Last Admin: 10/23/16 08:27 Dose: 200 mg Filgrastim-Sndz (Zarxio*) 480 mcg SUBCUT EVERY OTHER DAY [facility] Last Admin: 10/22/16 08:55 Dose: 480 mcg Latanoprost (Xalatan 0.005%*) 1 drop BOTH EYES BEDTIME [facility] PRN Reason: Protocol Last Admin: 10/22/16 20:05 Dose: 1 drop Magnesium Hydroxide (Milk Of Magnesia Liq*) 30 ml PO Q6HR PRN PRN Reason: CONSTIPATION Last Admin: 10/17/16 13:52 Dose: 30 ml Omeprazole (Prilosec Cap*) 20 mg PO DAILY@0730 [facility] Last Admin: 10/23/16 08:28 Dose: 20 mg Ondansetron HCl (Zofran Inj*) 4 mg IV Q4H PRN PRN Reason: NAUSEA/VOMITING Last Admin: 10/16/16 11:31 Dose: 4 mg Oxycodone/Acetaminophen (Percocet 5/325 Tab*) 1 tab PO Q4H PRN PRN Reason: Pain Last Admin: 10/23/16 10:29 Dose: 1 tab Polyethylene Glycol/Electrolytes (Miralax*) 17 gm PO DAILY [facility] Last Admin: 10/23/16 08:31 Dose: 17 gm Senna (Senokot Tab*) 1 tab PO BEDTIME [facility] Last Admin: 10/22/16 20:04 Dose: 1 tab Sertraline HCl (Zoloft*) 150 mg PO DAILY [facility] Last Admin: 10/23/16 08:31 Dose: 150 mg Spironolactone (Aldactone Tab*) 12.5 mg PO DAILY [facility] Last Admin: 10/23/16 08:28 Dose: 12.5 mg Warfarin Sodium (Coumadin Tab(*)) 4 mg PO SUWETHFR@1700 [facility] PRN Reason: Protocol Last Admin: 10/22/16 17:21 Dose: 4 mg Warfarin Sodium (Coumadin Tab(*)) 2 mg PO MOTUSA@1700 [facility] PRN Reason: Protocol Vital Signs 10/22/16 10/22/16 10/22/16 15:32 19:54 20:04 Temperature 98.4 F 98.7 F Pulse Rate 78 82 Respiratory 16 16 14 Rate Blood Pressure 103/54 110/48 (mmHg) O2 Sat by Pulse 96 94 Oximetry 10/22/16 10/22/16 10/22/16 20:23 22:04 23:59 Temperature 98.2 F Pulse Rate 73 Respiratory 14 16 16 Rate Blood Pressure 107/51 (mmHg) O2 Sat by Pulse 97 Oximetry 10/23/16 10/23/16 10/23/16 03:43 07:27 08:02 Temperature 99.1 F 98.1 F Pulse Rate 79 75 Respiratory 16 16 18 Rate Blood Pressure 122/53 117/54 (mmHg) O2 Sat by Pulse 98 95 Oximetry 10/23/16 10/23/16 10/23/16 10:29 11:40 12:29 Temperature 98.7 F Pulse Rate 71 Respiratory 18 18 18 Rate Blood Pressure 121/64 (mmHg) O2 Sat by Pulse 98 Oximetry Oxygen Devices in Use Now: None Appearance: alert, sitting up in bed eating breakfast Eyes: No Scleral Icterus, PERRLA Ears/Nose/Mouth/Throat: NL Teeth, Lips, Gums, Clear Oropharnyx Neck: NL Appearance and Movements; NL JVP Respiratory: Symmetrical Chest Expansion and Respiratory Effort, Clear to Auscultation Cardiovascular: NL Sounds; No Murmurs; No JVD, RRR Abdominal: NL Sounds; No Tenderness; No Distention, No Hepatosplenomegaly Lymphatic: No Cervical Adenopathy Extremities: No Edema, - - L hip incision with nazario, no drainage, small hematoma Neurological: - - left-sided weakness 02/18 Result Diagrams: 10/22/16 09:58 10/20/16 06:24 Microbiology and Other Data: Microbiology 10/07/16 21:00 Nasal Screen MRSA (PCR)(LILI) - Final Nasal Mrsa Negative Diagnostic Imaging: CXR - NAD EKG - sinus with LAD, no change from prior studies Assess/Plan/Problems-Billing Assessment: Mr. 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 1. POD #16 Pain controlled, incision clean, needs continued PT. Awaiting SNF. 2. Anemia likely multifactorial and related to MDS and surgery. Now stable. 3. CVA Deficits are at baseline with l-sided weakness. Continue asa/statin 4. HTN controlled on coreg and spironolactone Status and Disposition: Inpatient. Awaiting SNF placement for rehab. refused bed at [facility] as per CM. Will look in to other facilities.
[2016-10-23] MEDS ORDERED: Warfarin TAB(*) 2 MG PO SCH (17:00)
[2016-10-23] MEDS: Acetaminophen TAB* 325 MG PO PRN (20:22)
[2016-10-23] MEDS: Senna TAB PO SCH (20:22)
[2016-10-23] MEDS: Latanoprost 0.005%* 2.5 ml BTL BOTH EYES SCH (20:24)
[2016-10-24] MEDS: Aspirin Low Dose CHEW TAB* 81 MG PO SCH (08:56)
[2016-10-24] MEDS: Atorvastatin* 10 MG TAB PO SCH (08:56)
[2016-10-24] MEDS: Polyethylene Glycol 3350* 17 GM PACKET PO SCH (08:56)
[2016-10-24] MEDS: Spironolactone TAB* 25 MG PO SCH (08:56)
[2016-10-24] MEDS: Cephalexin CAP* 250 MG PO SCH ×4 (08:56→21:17)
[2016-10-24] MEDS: Magnesium Hydroxide LIQ* 30 ML UDC PO PRN (08:56)
[2016-10-24] MEDS: Carvedilol TAB* 3.125 MG PO SCH ×2 (08:56→19:59)
[2016-10-24] MEDS: Sertraline* 50 MG TAB PO SCH (08:56)
[2016-10-24] MEDS: Docusate CAP* 100 MG PO SCH (08:57)
[2016-10-24] MEDS: Omeprazole CAP* 20 MG PO SCH (08:57)
[2016-10-24] MEDS: Cetirizine* 10 MG TAB PO SCH (08:57)
[2016-10-24] MEDS: FILGRASTIM-SNDZ* 480 MCG/0.8 ML SYRINGE SUBCUT SCH (09:29)
--- NOTE | 2016-10-24 12:42 | PN ---
Subjective Date of Service: 10/24/16 Interval History: No events. He complains of some pain in his left hip, but does not want more pain medicine. An ice pack is helpful. Good appetite, no nausea, vomiting, constipation, or diarrhea. He has been afebrile. Family History: Unchanged from Admission Social History: Unchanged from Admission Past Medical History: Unchanged from Admission Objective Active Medications: Acetaminophen (Tylenol Tab*) 650 mg PO Q4H PRN PRN Reason: FEVER/PAIN Last Admin: 10/23/16 20:22 Dose: 650 mg Aspirin (Aspirin Low Dose Tab*) 81 mg PO DAILY [facility] Last Admin: 10/24/16 08:56 Dose: 81 mg Atorvastatin Calcium (Lipitor*) 10 mg PO DAILY [facility] Last Admin: 10/24/16 08:56 Dose: 10 mg Bisacodyl (Dulcolax Supp*) 10 mg UT Q72HR PRN PRN Reason: CONSTIPATION Last Admin: 10/21/16 08:15 Dose: 10 mg Carvedilol (Coreg Tab*) 1.5625 mg PO BID [facility] Last Admin: 10/24/16 08:56 Dose: 1.5625 mg Cephalexin HCl (Keflex Cap*) 250 mg PO QID [facility] Last Admin: 10/24/16 08:56 Dose: 250 mg Cetirizine HCl (Zyrtec*) 10 mg PO DAILY [facility] Last Admin: 10/24/16 08:57 Dose: 10 mg Docusate Sodium (Colace Cap*) 200 mg PO DAILY [facility] Last Admin: 10/24/16 08:57 Dose: 200 mg Filgrastim-Sndz (Zarxio*) 480 mcg SUBCUT EVERY OTHER DAY [facility] Last Admin: 10/24/16 09:29 Dose: 480 mcg Latanoprost (Xalatan 0.005%*) 1 drop BOTH EYES BEDTIME [facility] PRN Reason: Protocol Last Admin: 10/23/16 20:24 Dose: 1 drop Magnesium Hydroxide (Milk Of Magnesia Liq*) 30 ml PO Q6HR PRN PRN Reason: CONSTIPATION Last Admin: 10/24/16 08:56 Dose: 30 ml Omeprazole (Prilosec Cap*) 20 mg PO DAILY@0730 [facility] Last Admin: 10/24/16 08:57 Dose: 20 mg Ondansetron HCl (Zofran Inj*) 4 mg IV Q4H PRN PRN Reason: NAUSEA/VOMITING Last Admin: 10/16/16 11:31 Dose: 4 mg Oxycodone/Acetaminophen (Percocet 5/325 Tab*) 1 tab PO Q4H PRN PRN Reason: Pain Last Admin: 10/23/16 10:29 Dose: 1 tab Polyethylene Glycol/Electrolytes (Miralax*) 17 gm PO DAILY [facility] Last Admin: 10/24/16 08:56 Dose: 17 gm Senna (Senokot Tab*) 1 tab PO BEDTIME [facility] Last Admin: 10/23/16 20:22 Dose: 1 tab Sertraline HCl (Zoloft*) 150 mg PO DAILY [facility] Last Admin: 10/24/16 08:56 Dose: 150 mg Spironolactone (Aldactone Tab*) 12.5 mg PO DAILY [facility] Last Admin: 10/24/16 08:56 Dose: 12.5 mg Warfarin Sodium (Coumadin Tab(*)) 4 mg PO SUWETHFR@1700 [facility] PRN Reason: Protocol Last Admin: 10/22/16 17:21 Dose: 4 mg Warfarin Sodium (Coumadin Tab(*)) 2 mg PO [facility]USA@1700 [facility] PRN Reason: Protocol Last Admin: 10/23/16 17:47 Dose: 2 mg Vital Signs 10/23/16 10/23/16 10/23/16 15:24 19:55 20:00 Temperature 97.6 F Pulse Rate 70 Respiratory 16 17 17 Rate Blood Pressure 125/56 (mmHg) O2 Sat by Pulse 98 Oximetry 10/23/16 10/23/16 10/24/16 22:00 23:32 03:29 Temperature 97.2 F 98.1 F 97.4 F Pulse Rate 68 67 69 Respiratory 16 16 16 Rate Blood Pressure 123/59 127/59 121/53 (mmHg) O2 Sat by Pulse 97 98 99 Oximetry 10/24/16 10/24/16 10/24/16 07:44 09:00 11:16 Temperature 97.7 F 97.7 F Pulse Rate 93 80 78 Respiratory 20 16 Rate Blood Pressure 147/76 106/53 (mmHg) O2 Sat by Pulse 98 99 Oximetry Oxygen Devices in Use Now: None Appearance: alert, well appearing Eyes: No Scleral Icterus, PERRLA Ears/Nose/Mouth/Throat: NL Teeth, Lips, Gums, Clear Oropharnyx Neck: NL Appearance and Movements; NL JVP Respiratory: Symmetrical Chest Expansion and Respiratory Effort, Clear to Auscultation Cardiovascular: NL Sounds; No Murmurs; No JVD, RRR, No Edema Abdominal: NL Sounds; No Tenderness; No Distention, No Hepatosplenomegaly Lymphatic: No Cervical Adenopathy Extremities: No Edema, - - left hip insicion with nazario, no drainage, small hematoma Neurological: - - left upper and lower extremity strength 2/5 Result Diagrams: 10/22/16 09:58 10/20/16 06:24 Microbiology and Other Data: Microbiology 10/07/16 21:00 Nasal Screen MRSA (PCR)(LILI) - Final Nasal Mrsa Negative Diagnostic Imaging: CXR - NAD EKG - sinus with LAD, no change from prior studies Assess/Plan/Problems-Billing Assessment: Mr. 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 1. POD #17 Pain controlled, incision clean, needs continued PT. Awaiting SNF. 2. Normocytic Anemia likely multifactorial and related to MDS and surgery. Now stable, no evidence of ongoing blood loss. 3. CVA Deficits are at baseline with l-sided weakness. Continue asa/statin 4. HTN controlled on coreg and spironolactone Status and Disposition: Inpatient. Awaiting SNF placement for rehab. refused bed at [facility] as per . Will look in to other facilities.
[2016-10-24] MEDS: oxyCODONE/Acetamin 5/325 MG* TAB PO PRN ×2 (14:23→19:58)
[2016-10-24] MEDS: Warfarin TAB(*) 4 MG PO SCH (17:41)
[2016-10-24] MEDS: Senna TAB PO SCH (19:58)
[2016-10-24] MEDS: Latanoprost 0.005%* 2.5 ml BTL BOTH EYES SCH (21:20)
[2016-10-25 07:49] VITALS: BP 116/57
--- NOTE | 2016-10-25 08:37 | PN ---
Progress Note - Progress Note Date of Service: 10/25/16 SOAP: Subjective: [] Objective: [] Assessment: [] Plan: []
--- NOTE | 2016-10-25 08:57 | PN ---
Progress Note - Progress Note Date of Service: 10/25/16 SOAP: Subjective: 76 y/o male s/p left hip cannulated screw fixation 10/07/[address] Pearl. Patient discouraged about progress. NO complaints. VSS afebrile overnight. Objective: General- Well appearing, NAD, resting in bed comfortably MSK- INcision c/d/i, no drainage, minimal firmness around incision site, non- tender, no warmth, erythema. + DF/PF, neg homans PT 2+ b/l. no edema noted. Assessment: Stable 76 y/o male s/p left hip cannulated screw fixation 10/07/[address] Pearl. Plan: - DVT prophylaxis- Coumadin - ABX- Keflex - Continue PT/ OT - Possible placement today - Follow up with Dr Pearl within 10 days Active Medications Generic Name Dose Route Start Last Admin Trade Name Freq PRN Reason Stop Dose Admin Acetaminophen 650 mg 10/06/16 18:48 10/23/16 20:22 Tylenol Tab* PO 650 mg Q4H PRN Administration FEVER/PAIN Aspirin 81 mg 10/07/16 09:00 10/24/16 08:56 Aspirin Low Dose Tab* PO 81 mg DAILY BROOK Administration Atorvastatin Calcium 10 mg 10/07/16 09:00 10/24/16 08:56 Lipitor* PO 10 mg DAILY BROOK Administration Bisacodyl 10 mg 10/06/16 18:53 10/21/16 08:15 Dulcolax Supp* DE 10 mg Q72HR PRN Administration CONSTIPATION Carvedilol 1.5625 mg 10/06/16 21:00 10/24/16 19:59 Coreg Tab* PO 1.5625 mg BID BROOK Administration Cephalexin HCl 250 mg 10/11/16 13:00 10/24/16 21:17 Keflex Cap* PO 250 mg QID BROOK Administration Cetirizine HCl 10 mg 10/07/16 09:00 10/24/16 08:57 Zyrtec* PO 10 mg DAILY BROOK Administration Docusate Sodium 200 mg 10/07/16 09:00 10/24/16 08:57 Colace Cap* PO 200 mg DAILY BROOK Administration Filgrastim-Sndz 480 mcg 10/20/16 10:11 10/24/16 09:29 Zarxio* SUBCUT 480 mcg EVERY OTHER DAY BROOK Administration Latanoprost 1 drop 10/06/16 21:00 10/24/16 21:20 Xalatan 0.005%* BOTH EYES 1 drop BEDTIME BROOK Administration Protocol Magnesium Hydroxide 30 ml 10/17/16 13:38 10/24/16 08:56 Milk Of Magnesia Liq* PO 30 ml Q6HR PRN Administration CONSTIPATION Omeprazole 20 mg 10/07/16 07:30 10/24/16 08:57 Prilosec Cap* PO 20 mg DAILY@0730 BROOK Administration Ondansetron HCl 4 mg 10/06/16 18:48 10/16/16 11:31 Zofran Inj* IV 4 mg Q4H PRN Administration NAUSEA/VOMITING Oxycodone/Acetaminophen 1 tab 10/06/16 18:48 10/24/16 19:58 Percocet 5/325 Tab* PO 1 tab Q4H PRN Administration Pain Polyethylene Glycol/Electrolytes 17 gm 10/07/16 09:00 10/24/16 08:56 Miralax* PO 17 gm DAILY BROOK Administration Senna 1 tab 10/06/16 21:00 10/24/16 19:58 Senokot Tab* PO 1 tab BEDTIME BROOK Administration Sertraline HCl 150 mg 10/07/16 09:00 10/24/16 08:56 Zoloft* PO 150 mg DAILY BROOK Administration Spironolactone 12.5 mg 10/07/16 09:00 10/24/16 08:56 Aldactone Tab* PO 12.5 mg DAILY BROOK Administration Warfarin Sodium 4 mg 10/21/16 17:00 10/24/16 17:41 Coumadin Tab(*) PO 4 mg SUWETHFR@1700 [facility] Administration Protocol Warfarin Sodium 2 mg 10/23/16 17:00 10/23/16 17:47 Coumadin Tab(*) PO 2 mg MOTUSA@1700 [facility] Administration Protocol
--- NOTE | 2016-10-25 09:13 | DCNOTE ---
Patient seen this morning. Reports feeling "so-so" this morning. Pain is tolerable with medications. Understands plans for d/c to SNF today, also aware. On exam, RRR, JAZZY, lungs clear, L hip with wound over lateral aspect, nazario in place, some ecchymoses, seems to be healing well. D/C to [facility] today. Continue ABx as per ortho. F/U with Dr. Pearl
--- NOTE | 2016-10-25 09:58 | DS ---
CC: Dr. Drew; Dr. Pearl; [facility] * DATE OF ADMISSION: 10/06/16 DATE OF DISCHARGE: 10/25/16 PRIMARY CARE PROVIDER: Dr. Drew PRINCIPAL DISCHARGE DIAGNOSES: 1. Left hip fracture, status post left hip cannulated screw placement. 2. Acute blood loss anemia, and anemia secondary too myelodysplastic syndrome requiring multiple blood transfusions. SECONDARY DIAGNOSES: 1. Multiple strokes resulting in left-sided weakness. 2. Myelodysplastic syndrome, currently on Neupogen, NPR and transfusions. 3. Mild cognitive impairment. 4. Hypertension. 5. Hyperlipidemia. 6. Obstructive sleep apnea with q hs BIPAP use. 7. Gastroesophageal reflux disease. 8. Coronary artery disease, status post CABG. STUDIES DONE DURING HOSPITALIZATION: 1. Left hip x-ray. Impression: Non-displaced fractiure of the left femoral neck. 2. CT of the brain. Impression: Again noted is chronic small vessel ischemic change with multiple chronic infarcts. No acute intracranial pathology. 3. Left femur x-ray. Impression: Non-displaced fracture of the left femoral neck. 4. Chest x-ray. Impression: No evident cardiopulmonary disease. 5. Hip x-ray in the OR. Impression: Fluoroscopy was provided for a surgical procedure. 6. Post-operative left hip x-ray. Impression: Post-operative changes in the left hip. No evidence of hardware failure. CONSULTANTS DURING HOSPITALIZATION: 1. Dr. Rigo Busch, cardiology. 2. Dr. Pearl, orthopedics. DISCHARGE MEDICATION REGIMEN: 1. Percocet 5/325 one tablet by mouth every 4 hours as needed for pain. 2. Warfarin 2 mg Tuesday, Tuesday, and Tuesday. 3. Warfarin 4 mg Tuesday, Tuesday and Tuesday. 4. Vitamin B12 1000 mcg by mouth daily. 5. Spironolactone 12.5 mg by mouth daily. 6. Coreg [1.5625?] mg by mouth daily 2 x daily. 7. Loratadine 10 mg by mouth daily. 8. Senna one tablet by mouth at bedtime. 9. Colace 200 mg by mouth daily. 10. MiraLAX 17 grams by mouth daily. 11. Travoprost one drop by eyes at bedtime. 12. Aspirin 81 mg by mouth daily. 13. Atorvastatin 10 mg by mouth daily. 14. Neupogen 480 mcg every Tuesday, Tuesday and Tuesday. 15. Sertraline 150 mg by mouth daily. 16. Vitamin D3 1000 units by mouth daily. 17. Omeprazole 20 mg by mouth daily. 18. Bisacodyl 10 mg per rectum every 72 hours as needed for constipation. 19. Milk of magnesia 30 mL by mouth every 72 hours as needed for constipation. 20. Zofran 4 mg by mouth every 8 hours as needed for nausea. 21. Fleet enema one enema per rectum every 72 hours as needed for constipation. 22. Tylenol 650 mg by mouth every 4 hours as needed for pain. Lisinopril 2.5 mg daily held for borderline blood pressures, can resume if BPs trend back up HISTORY OF PRESENT ILLNESS / HOSPITAL SUMMARY: Please see the full history and physical by MARIANN Akins for full details. Briefly, Mr. Cramer is a 76- year- old male with a complicated past medical history as above who presented to the hospital after a mechanical fall at home, falling onto his left side where he struck his head and his hip. As noted above, the patient was found to have a femoral neck fracture on plain films. Due to the patient's cardiac history, Dr. Rigo Busch was consulted; he felt that there was not any additional testing or treatment to be done prior to surgery. The patient was taken to the OR on 10/07/[address] Pearl for left hip cannulated screw placement. Patient did receive FFP prior to surgery to lower INR. Patient's anemia was monitored closely post-operatively. He was started on a Lovenox bridge to Coumadin. Unfortunately, the patient developed a large post-op hematoma at the surgical site. He was continued on aspirin and Coumadin; and, over the course of the hospitalization, received a total of 6 units of packed red blood cells. There was an attempt to place a wound vac over the wound; however, after 24 hours, this did not seem to be helping and this was removed. The patient's anemia eventually stabilized. His outpatient Neupogen for MDS was continued during the hospitalization. Orthopedics continued to follow closely. The patient will need to follow up with Dr. Pearl. In the meantime, he and his have accepted a rehab bed at [facility] and the patient will be transferred there today for continued rehabilitation. Total time spent on this dishcharge - 45 minutes. This is a summary of the hospitalization; please see the full medical record for further details. [id number]/[facility] #: [id number] DIEGO
[2016-10-25] MEDS: Polyethylene Glycol 3350* 17 GM PACKET PO SCH (10:17)
[2016-10-25] MEDS: Spironolactone TAB* 25 MG PO SCH (10:20)
[2016-10-25] MEDS: Atorvastatin* 10 MG TAB PO SCH (10:21)
[2016-10-25] MEDS: Carvedilol TAB* 3.125 MG PO SCH (10:21)
[2016-10-25] MEDS: Omeprazole CAP* 20 MG PO SCH (10:22)
[2016-10-25] MEDS: Docusate CAP* 100 MG PO SCH (10:22)
[2016-10-25] MEDS: Cetirizine* 10 MG TAB PO SCH (10:22)
[2016-10-25] MEDS: Aspirin Low Dose CHEW TAB* 81 MG PO SCH (10:22)
[2016-10-25] MEDS: Sertraline* 50 MG TAB PO SCH (10:24)
[2016-10-25] MEDS: oxyCODONE/Acetamin 5/325 MG* TAB PO PRN (10:26)
[2016-10-25] MEDS: Cephalexin CAP* 250 MG PO SCH (10:47)
== END 2016-10-25 11:10 | DRG 481 ==
LOC: ED 15:17 → SSU 18:48 → ICU 10-07 20:40 → SSU 10-08 10:43
PROVIDERS: ADMIT Internal Medicine; ATTEND Hospitalist
PROC: 0QS704Z Reposition Left Upper Femur with Internal Fixation Device, Open Approach (ICD-10-PCS; 2016-10-07)
PROC: 30233N1 Transfusion of Nonautologous Red Blood Cells into Peripheral Vein, Percutaneous Approach (ICD-10-PCS; principal; 2016-10-08)
PROC: 30233K1 Transfusion of Nonautologous Frozen Plasma into Peripheral Vein, Percutaneous Approach (ICD-10-PCS; 2016-10-08)
PROC: 2W1PX6Z Compression of Left Upper Leg using Pressure Dressing (ICD-10-PCS; 2016-10-14)
PROC: 2W5PX6Z Removal of Pressure Dressing on Left Upper Leg (ICD-10-PCS; 2016-10-15)
DX: S72.002A Fracture of unspecified part of neck of left femur, initial encounter for closed fracture (principal); I69.354 Hemiplegia and hemiparesis following cerebral infarction affecting left non-dominant side; D68.9 Coagulation defect, unspecified; I10 Essential (primary) hypertension; K21.9 Gastro-esophageal reflux disease without esophagitis; D46.9 Myelodysplastic syndrome, unspecified; D62 Acute posthemorrhagic anemia; L76.32 Postprocedural hematoma of skin and subcutaneous tissue following other procedure; F01.50 Vascular dementia, unspecified severity, without behavioral disturbance, psychotic disturbance, mood disturbance, and anxiety; E78.5 Hyperlipidemia, unspecified; W18.30XA Fall on same level, unspecified, initial encounter; G47.33 Obstructive sleep apnea (adult) (pediatric); G31.84 Mild cognitive impairment of uncertain or unknown etiology; I35.0 Nonrheumatic aortic (valve) stenosis; I25.5 Ischemic cardiomyopathy; I25.10 Atherosclerotic heart disease of native coronary artery without angina pectoris; I44.7 Left bundle-branch block, unspecified; F32.9 Major depressive disorder, single episode, unspecified; H40.9 Unspecified glaucoma; R40.2362 Coma scale, best motor response, obeys commands, at arrival to emergency department; R40.2142 Coma scale, eyes open, spontaneous, at arrival to emergency department; R40.2252 Coma scale, best verbal response, oriented, at arrival to emergency department; Y83.8 Other surgical procedures as the cause of abnormal reaction of the patient, or of later complication, without mention of misadventure at the time of the procedure; Y92.239 Unspecified place in hospital as the place of occurrence of the external cause; G89.29 Other chronic pain; M54.9 Dorsalgia, unspecified; M10.9 Gout, unspecified; Z95.1 Presence of aortocoronary bypass graft; Z91.011 Allergy to milk products; Z91.018 Allergy to other foods; Z91.013 Allergy to seafood; Z91.048 Other nonmedicinal substance allergy status; Z87.891 Personal history of nicotine dependence; Z72.89 Other problems related to lifestyle; Z99.3 Dependence on wheelchair; Z87.442 Personal history of urinary calculi; Z98.49 Cataract extraction status, unspecified eye; Z90.79 Acquired absence of other genital organ(s); Z82.49 Family history of ischemic heart disease and other diseases of the circulatory system; I25.2 Old myocardial infarction; Z85.46 Personal history of malignant neoplasm of prostate; Y92.099 Unspecified place in other non-institutional residence as the place of occurrence of the external cause; Z79.01 Long term (current) use of anticoagulants; Z79.82 Long term (current) use of aspirin
CPT/HCPCS: 36415; 70450; 71010; 80048; 80053; 83605; 85014; 85018; 85025; 85027; 85610; 86140; 86850; 86900; 86901; 86922; 86927; 87641; 93005; 94660; A9270-GY; C1713; J1100; J1650; J2001; J2270; J2405; J2704; J3010; P9017; P9040; Q5101 ZA

== ENCOUNTER 2016-12-28 18:38 | Emergency (ER) | payer OTHER ==
[2016-12-28 20:07] LABS: Urine Bacteria Absent (Absent); Urine Bilirubin Negative (Negative); Urine Glucose Negative (Negative); Urine Nitrite Negative (Negative)
[2016-12-28 20:26] LABS: Hematocrit 31 % (42-52); Hemoglobin 10.4 g/dl (14.0-18.0); Mean Corpuscular HGB Conc 33 g/dl (31-36); Mean Corpuscular Hemoglobin 30 pg (27-31); Mean Corpuscular Volume 89 fL (80-94); Mean Platelet Volume 10 um3 (7.4-10.4); Red Blood Count 3.49 10^6/ul (4.0-5.4); Red Cell Distribution Width 19 % (10.5-15); White Blood Count 10.2 10^3/ul (3.5-10.8)
[2016-12-28 20:27] LABS: Comments Flag Yes
--- NOTE | 2016-12-28 20:35 | RAD ---
Indication: Fever. General illness. Comparison: October 06, 2016 chest radiograph and September 13, 2016 PET/CT. Technique: Upright AP 2001 hours Report: No pulmonary infiltrate, pleural effusion, or pneumothorax. Mild prominence of interstitial markings without change. Median sternotomy wires. Mild cardiomegaly accounting for AP technique and leftward rotation without significant change. Unremarkable central pulmonary vasculature and mediastinal contours. Negative for free air beneath the diaphragm. IMPRESSION: No evidence for pneumonia. No acute cardiopulmonary process evident.
[2016-12-28 20:41] LABS: Albumin 3.7 g/dL (3.2-5.2); BUN/Creatinine Ratio 21.7 (8-20); Calcium 9.4 mg/dL (8.6-10.3); EGFR African American 115.2 (>60); EGFR Non-African American 89.6 (>60); Globulin 3.8 g/dL (2-4); Total Bilirubin 0.5 mg/dL (0.2-1.0); Total Protein 7.5 g/dL (6.4-8.9)
[2016-12-28] MEDS ORDERED: Sulfamethox/Trimethoprim DS 800/160* TAB PO ONE (20:46)
[2016-12-28] MEDS ORDERED: Acetaminophen TAB* 325 MG PO ONE (20:47)
[2016-12-28 21:04] VITALS: BP 121/53
--- NOTE | 2017-01-26 13:06 | ED ---
Juan J Powers Thomas, scribed for Naresh Martines MD on 12/28/16 at 1948 . HPI Febrile Illness - HPI Summary HPI Summary: The pt is a 76 y/o M brought in from the assisted living facility c/o vomiting ( x1 today) and a fever at 100.6 degrees. The patient has been more confused in the last two days but especially the last 12-24 hours. Pt has no other complaints at this time. Per , the patients breath is particularly foul. Pt denies diarrhea, dysuria, hematuria, sore throat, cough, and any pain. He was hypotensive prior to arrival. PMHx includes UTIs and multiple strokes. The patient is accompanied by his . He gets around in a wheelchair. - History of Current Complaint Chief Complaint: EDFever Time Seen by Provider: 12/28/16 19:34 Hx Obtained From: Patient Onset/Duration: Started Hours Ago - onset earlier today, Still Present Timing: Constant Current Severity: Moderate Pain Intensity: 0 Pain Scale Used: 0-10 Numeric Aggravating Factors: Nothing Alleviating Factors: Nothing Associated Signs and Symptoms: Other: - Fever, confusion; NEGATIVE: diarrhea, dysuria, hematuria, sore throat, cough, and any pain. - Additional Pertinent History Primary Care Physician: [id number] - Allergy/Home Medications Allergies/Adverse Reactions: Allergies Allergy/AdvReac Type Severity Reaction Status Date / Time Shellfish Allergy Allergy Severe Airway Verified 08/25/16 10:30 Obstruction Lactose Intolerance (GI) Allergy GI Upset Verified 08/25/16 10:30 walnuts Allergy Intermediate Airway Uncoded 08/25/16 10:30 Obstruction tree pollen Allergy Sneezing Uncoded 08/25/16 10:32 PMH/Surg Hx/FS Hx/Imm Hx Previously Healthy: No Endocrine/Hematology History: Reports: Hx Anticoagulant Therapy, Hx Bone Marrow Disease - myelodysplastic syndrome Denies: Hx Diabetes Cardiovascular History: Reports: Hx Angina, Hx Coronary Artery Disease, Hx Hypercholesterolemia, Hx Hypertension, Hx Syncope, Other Cardiovascular Problems /Disorders - LBBB Denies: Hx Congestive Heart Failure, Hx Pacemaker/ICD, Hx Peripheral Vascular Disease Respiratory History: Reports: Hx Sleep Apnea - pt states this may be new to him , unsure. Denies: Hx Asthma, Hx Chronic Obstructive Pulmonary Disease (COPD) GI History: Reports: Hx Gastroesophageal Reflux Disease, Other GI Disorders - GERD History: Reports: Hx Benign Prostatic Hyperplasia, Hx Kidney Stones, Hx Renal Disease - KIDNEY STONES, Other Problems/Disorders - KIDNEY STONES,BPH Denies: Hx Dialysis Musculoskeletal History: Reports: Hx Back Problems, Other Musculoskeletal History - Lumbar spinal stenosis Denies: Hx Osteoporosis Sensory History: Reports: Hx Contacts or Glasses Denies: Hx Cataracts, Hx Glaucoma, Hx Hearing Aid Opthamlomology History: Reports: Hx Contacts or Glasses Denies: Hx Cataracts, Hx Glaucoma Neurological History: Reports: Hx Transient Ischemic Attacks (TIA), Other Neuro Impairments/Disorders - lumbar stenosis Denies: Hx Headaches, Hx Seizures Psychiatric History: Reports: Hx Depression Denies: Hx Anxiety, Hx Panic Disorder - Cancer History Cancer Type, 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 QUADRUPAL BYPASS-TONSILS - Immunization History Date of Tetanus Vaccine: UTD Date of Influenza Vaccine: UTD Infectious Disease History: No Infectious Disease History: Reports: Hx Shingles - 2009 Denies: Traveled Outside the [place] in Last 30 Days - Family History Known Family History: Positive: Cardiac Disease - Social History Alcohol Use: None Alcohol Amount: 1 drink per week Hx Substance Use: No Substance Use Type: Reports: None Hx Tobacco Use: Yes Smoking Status (MU): Former Smoker Type: Cigarettes Have You Smoked in the Last Year: No Review of Systems Positive: Fever. Negative: Chills Negative: Erythema - eyes Negative: Sore Throat Negative: Chest Pain Negative: Shortness Of Breath, Cough Negative: Abdominal Pain, Vomiting, Nausea Negative: dysuria, hematuria Negative: Myalgia, Edema - legs Negative: Rash Neurological: Other - Confusion; NEGATIVE: dizziness All Other Systems Reviewed And Are Negative: Yes Physical Exam - Summary Physical Exam Summary: Constitutional: Well-developed, Well-nourished, Alert. (-) Distressed Skin: Warm, Dry. There are no signs of decubitus ulcer. HENT: Normocephalic; Atraumatic Eyes: Conjunctiva normal Neck: Musculoskeletal ROM normal neck. (-) JVD, (-) Stridor, (-) Tracheal deviation Cardio: Rhythm regular, rate normal, Heart sounds normal; Intact distal pulses; The pedal pulses are 2+ and symmetric. Radial pulses are 2+ and symmetric. (-) Murmur Pulmonary/Chest wall: Effort normal. There is a very small amount of rhonchi on the right upper lung field. (-) Respiratory distress, (-) Wheezes, (-) Rales Abd: Soft, (-) Tenderness, (-) Distension, (-) Guarding, (-) Rebound Musculoskeletal: (-) Edema Lymph: (-) Cervical adenopathy Neuro: Alert, Oriented x3 Psych: Mood and affect Normal Triage Information Reviewed: Yes Vital Signs On Initial Exam: Initial Vitals Temp Pulse Resp BP Pulse Ox 100.8 F 77 16 122/54 99 12/28/16 19:10 12/28/16 19:10 12/28/16 19:10 12/28/16 19:10 12/28/16 19:10 Vital Signs Reviewed: Yes Diagnostics - Vital Signs Vital Signs Temp Pulse Resp BP Pulse Ox 12/28/16 19:10 100.8 F 77 16 122/54 99 - Laboratory Result Diagrams: 12/28/16 20:06 12/28/16 20:06 Lab Statement: Any lab studies that have been ordered have been reviewed, and results considered in the medical decision making process. Re-Evaluation - Re-Evaluation First Eval Re-Evaluation Time: 20:56 Change: Improved Comment: Patient's temperature has fallen to 99.6 F. He is much more conversive and would like to be discharged. His agrees with the discharge plan. Patient has had right hip pain and flank pain for months to years. He mentions that he has arthritis. Course/Dx - Course Assessment/Plan: The pt is a 76 y/o M brought in from the assisted living facility c/o vomiting (x1 today) and a fever at 100.6 degrees. The patient has been more confused in the last two days but especially the last 12-24 hours. Pt has no other complaints at this time. Per , the patients breath is particularly foul. Pt denies diarrhea, dysuria, hematuria, sore throat, cough, and any pain. He was hypotensive prior to arrival. PMHx includes UTIs and multiple strokes. The patient is accompanied by his . He gets around in a wheelchair. In the ED course the patient was given Bactrim and Acetaminophen. Upon re-evaluation prior to discharge, the patients temperature has fallen to 99.6. He is much more conversive and would like to be discharged. His agrees with the discharge plan. Patient has had right hip pain and flank pain for months to years. He mentions that he has arthritis. Bloodwork shows RBC 3.49 , Hgb 10.4, Hct 31. UA was obtained and it shows UTI. The patient is diagnosed with UTI. The patient is instructed to follow up with primary care in two days. The patient is prescribed Bactrim. Patient is agreeable with this plan. - Diagnoses Provider Diagnoses: Urinary tract infection Discharge - Discharge Plan Condition: Stable Disposition: HOME Prescriptions: Sulfamethox/Trimethoprim DS* [Bactrim DS 800/160 TAB*] 1 tab PO BID #14 tab Patient Education Materials: Urinary Tract Infection in Men (ED) Referrals: Mattie Drew MD [Primary Care Provider] - 2 Days Additional Instructions: Follow up with Dr. Reddy in 2 days. Return to the emergency department for any new or worsening symptoms. The documentation as recorded by the Juan J nieves Thomas accurately reflects the service I personally performed and the decisions made by , Naresh Martines MD.
== END 2016-12-28 21:23 | disposition home or self-care (01) ==
LOC: ED 18:38
DX: N39.0 Urinary tract infection, site not specified (principal); R31.9 Hematuria, unspecified; R50.9 Fever, unspecified; R41.0 Disorientation, unspecified; I25.119 Atherosclerotic heart disease of native coronary artery with unspecified angina pectoris; I10 Essential (primary) hypertension; Z95.1 Presence of aortocoronary bypass graft; I44.7 Left bundle-branch block, unspecified; E78.00 Pure hypercholesterolemia, unspecified; Z79.01 Long term (current) use of anticoagulants; K21.9 Gastro-esophageal reflux disease without esophagitis; N40.0 Benign prostatic hyperplasia without lower urinary tract symptoms; Z87.442 Personal history of urinary calculi; Z86.73 Personal history of transient ischemic attack (TIA), and cerebral infarction without residual deficits; Z90.79 Acquired absence of other genital organ(s); Z87.891 Personal history of nicotine dependence
CPT/HCPCS: 36415; 71010; 80053; 81003; 81015; 83605; 85027; 87040; 87086; 87502; 87651; 99283; A9270-GY

== ENCOUNTER 2016-12-29 18:34 | Inpatient (IN) | payer OTHER ==
[~2016-12-29 18:34] MED LIST: NS 0.9% 1000 ML* 1,000 ML IV ONE
[2016-12-29 19:08] LABS: Hematocrit 33 % (42-52); Hemoglobin 10.6 g/dl (14.0-18.0); Mean Corpuscular HGB Conc 32 g/dl (31-36); Mean Corpuscular Hemoglobin 29 pg (27-31); Mean Corpuscular Volume 90 fL (80-94); Mean Platelet Volume 10 um3 (7.4-10.4); Red Blood Count 3.65 10^6/ul (4.0-5.4); Red Cell Distribution Width 19 % (10.5-15); White Blood Count 42.5 10^3/ul (3.5-10.8)
--- NOTE | 2016-12-29 19:10 | RAD ---
Indication: Code Knight. LEFT side weakness. Comparison: No relevant prior exams available on the [facility] [place] PACS for comparison. Technique: Noncontrast CT vertex of skull through foramen magnum. Report: Encephalomalacia at the RIGHT occipital lobe and LEFT frontal lobe without change consistent with sequela of previous infarct or other insult. Chronic lacunar infarcts at the RIGHT basal ganglia measuring up to 1.0 cm diameter. Negative for new zuñgia matter white matter obscuration, intra or extra-axial hemorrhage, or mass effect. Decreased density in the periventricular and subcortical white matter while non-specific is most likely due to chronic microangiopathy. Mild prominence of the cerebral sulci and ventricles reflecting atrophy. Unremarkable basal cisterns. Negative for suspicious calvarial or skull base lesion. Mucous retention cyst or polyp at the RIGHT maxillary sinus. Negative for paranasal sinus fluid levels. Clear mastoid air spaces. Negative for scalp hematoma. IMPRESSION: 1. Negative for intracranial hemorrhage. No gross CT stigmata of acute or subacute ischemic stroke 2. Encephalomalacia from multiple previous infarcts. 3. Involutional change and stigmata of chronic small vessel ischemic disease. Results discussed with Dr. Yañez at 1900 hours
[2016-12-29 19:12] LABS: Add Diff/Slide Review? Slide Review Added; Comments Flag Yes
[2016-12-29 19:20] LABS: Albumin 4.1 g/dL (3.2-5.2); Calcium 9.8 mg/dL (8.6-10.3); EGFR African American 113.7 (>60); EGFR Non-African American 88.4 (>60); Globulin 3.8 g/dL (2-4); HDL Cholesterol 12.8 mg/dL; Potassium 4.3 mmol/L (3.5-5.0); Total Bilirubin 0.5 mg/dL (0.2-1.0); Total Protein 7.9 g/dL (6.4-8.9)
[2016-12-29] MEDS ORDERED: cefTRIAXone(*) 2 GM in NS 0.9% 100 ML* 100 ML IVPB ONE (19:26)
[2016-12-29 19:28] LABS: Troponin I 0.05 ng/mL (<0.04)
[2016-12-29] MEDS ORDERED: Vancomycin(*) 1,250 MG in NS 0.9% 250 ML* 250 ML IVPB ONE (19:30)
[2016-12-29 19:31] LABS: Eosinophils % 1 % (0-6); Immature Granulocytes 13 % (0-9); Metamyelocytes % 3 % (0-2); Neutrophil % 81 % (38-83); RBC Morphology Normal (Normal)
--- NOTE | 2016-12-29 19:46 | RAD ---
Indication: Code zuñiga. Previous CABG. Comparison: December 28, 2016 Technique: Upright AP 1918 hours Report: Mild prominence of interstitial markings without change. Grossly clear pleural spaces. Negative for pneumothorax. Median sternotomy wires. Cardiomegaly. Unremarkable central pulmonary vasculature. IMPRESSION: Stigmata of potential chronic obstructive pulmonary disease. Cardiomegaly without change. No acute cardiopulmonary process evident.
[2016-12-29] MEDS ORDERED: cefTRIAXone(*) 2 GM ADDV.VIAL IVPB ONE (19:47)
[2016-12-29] MEDS ORDERED: Vancomycin(*) 1,000 MG VIAL IVPB SCH (20:00)
--- NOTE | 2016-12-29 20:06 | ED ---
Susanne Powers Nilda, scribed for Rome Yañez MD on 12/29/16 at 1852 . Neurological HPI - HPI Summary HPI Summary: Bossman Osorio [[id number]] This patient is a 76 year old M BIBA to [facility] with a chief complaint of possible CVA. Yesterday, patient came to ED and was treated for UTI. Today, per EMS, nurse aid witnessed pt was suddenly vomiting (2x) while sitting at home. After vomiting, pt slumped to the left, had left-sided flaccidity, and had a forced gaze to the left. Last seen normal at 1715. Per EMS, left-sided weakness is patient's normal baseline (from previous CVA) but the flaccidity is abnormal. Pt is on Coumadin. - History of Current Complaint Stated Complaint: BOSSMAN OSORIO Time Seen by Provider: 12/29/16 18:34 Hx Obtained From: Patient Onset/Duration: Sudden Onset, Started hours ago Timing: Constant Current Severity: Severe Character: Other: - Bossman Osorio: left-sided flaccidity and gaze Aggravating: Nothing Alleviating: Nothing Associated Signs and Symptoms: Positive: Nausea/Vomiting - Additional Pertinent History Primary Care Physician: SARAH - Allergy/Home Medications Allergies/Adverse Reactions: Allergies Allergy/AdvReac Type Severity Reaction Status Date / Time Shellfish Allergy Allergy Severe Airway Verified 08/25/16 10:30 Obstruction Lactose Intolerance (GI) Allergy GI Upset Verified 08/25/16 10:30 walnuts Allergy Intermediate Airway Uncoded 08/25/16 10:30 Obstruction tree pollen Allergy Sneezing Uncoded 08/25/16 10:32 PMH/Surg Hx/FS Hx/Imm Hx Endocrine/Hematology History: Reports: Hx Anticoagulant Therapy, Hx Bone Marrow Disease - myelodysplastic syndrome Denies: Hx Diabetes Cardiovascular History: Reports: Hx Angina, Hx Coronary Artery Disease, Hx Hypercholesterolemia, Hx Hypertension, Hx Syncope, Other Cardiovascular Problems /Disorders - LBBB Denies: Hx Congestive Heart Failure, Hx Pacemaker/ICD, Hx Peripheral Vascular Disease Respiratory History: Reports: Hx Sleep Apnea - pt states this may be new to him , unsure. Denies: Hx Asthma, Hx Chronic Obstructive Pulmonary Disease (COPD) GI History: Reports: Hx Gastroesophageal Reflux Disease, Other GI Disorders - GERD History: Reports: Hx Benign Prostatic Hyperplasia, Hx Kidney Stones, Hx Renal Disease - KIDNEY STONES, Other Problems/Disorders - KIDNEY STONES,BPH Denies: Hx Dialysis Musculoskeletal History: Reports: Hx Back Problems, Other Musculoskeletal History - Lumbar spinal stenosis Denies: Hx Osteoporosis Sensory History: Reports: Hx Contacts or Glasses Denies: Hx Cataracts, Hx Glaucoma, Hx Hearing Aid Opthamlomology History: Reports: Hx Contacts or Glasses Denies: Hx Cataracts, Hx Glaucoma Neurological History: Reports: Hx Transient Ischemic Attacks (TIA), Other Neuro Impairments/Disorders - lumbar stenosis Denies: Hx Headaches, Hx Seizures Psychiatric History: Reports: Hx Depression Denies: Hx Anxiety, Hx Panic Disorder - Cancer History Cancer Type, 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 QUADRUPAL BYPASS-TONSILS - Immunization History Date of Tetanus Vaccine: UTD Date of Influenza Vaccine: UTD Infectious Disease History: Reports: Hx Shingles - 2009 Denies: Traveled Outside the [place] in Last 30 Days - Family History Known Family History: Positive: Cardiac Disease - Social History Alcohol Use: None Alcohol Amount: 1 drink per week Hx Substance Use: No Substance Use Type: Reports: None Hx Tobacco Use: Yes Smoking Status (MU): Former Smoker Type: Cigarettes Have You Smoked in the Last Year: No Review of Systems Positive: Vomiting Neurological: Other - left sided flaccidity, gaze to the left, slumped to left All Other Systems Reviewed And Are Negative: Yes Physical Exam Triage Information Reviewed: Yes Vital Signs Reviewed: Yes Appearance: Positive: No Pain Distress Skin: Positive: Warm, Skin Color Reflects Adequate Perfusion Head/Face: Positive: Normal Head/Face Inspection Eyes: Positive: TERI, Other: - eyes forced deviation to the left Neck: Positive: Nontender Respiratory/Lung Sounds: Positive: Clear to Auscultation, Breath Sounds Present Cardiovascular: Positive: RRR. Negative: Murmur Abdomen Description: Positive: Nontender Neurological: Positive: CN Intact II-III - left facial droop with forced deviation eyes to the left, Facial Droop - left, Slurred Speech. Negative: Sensory/Motor Intact - left side flaccid, and no sensation on the left side, Alert, Oriented to Person Place, Time Diagnostics - Laboratory Result Diagrams: 12/29/16 18:45 12/29/16 18:45 Lab Statement: Any lab studies that have been ordered have been reviewed, and results considered in the medical decision making process. - Radiology CXR Radiology Interpretation Completed By: Radiologist - Stigmata of potential chronic obstructive pulmonary disease. Cardiomegaly without change. No acute cardiopulmonary process evident. ED physician reviewed this report and agrees. - CT Brain CT Interpretation Completed By: Radiologist - 1. Negative for intracranial hemorrhage. No gross CT stigmata of acute or subacute ischemic stroke 2. Encephalomalacia from multiple previous infarcts. 3. Involutional change and stigmata of chronic small vessel ischemic disease. ED physician has reviewed this report and agrees. - EKG 1955 Cardiac Rate: NL EKG Rhythm: Sinus Rhythm - 85 bpm EKG Interpretation: LVH, no STEMI NIH Scale - NIH Scale Level of Consciousness: Alert/Keenly Responsive Ask Patient the Month and His/Her Age: Neither Correct/Aphasic Ask Pt to Open/Close Eyes and Surveillance Director/Release Non-Paretic Hand: One Correctly Best Gaze (Only Horizontal Eye Movement): Forced Deviation Visual Field Testing: Partial Hemianopia Facial Paresis-Pt to Smile & Close Eyes or Grimace Symmetry: Partial Paralysis Motor Function - Right Arm: No Drift-Holds 10 Seconds Motor Function - Left Arm: No Movement Motor Function - Right Leg: Effort Against [place] Motor Function - Left Leg: No Movement Limb Ataxia-Must be out of Proportion to Weakness Present: Present in One Limb Sensory (Use Pinprick to Test Arms/Legs/Trunk/Face): Severe to Total Loss - Done at 1845 Best Language (Describe Picture, Name Items): Severe Aphasia Dysarthria (Read Several Words): Slurs Some Words Extinction and Inattention: Inattention Total Score: 25 Re-Evaluation - Re-Evaluation First Eval Re-Evaluation Time: 18:55 Change: Unchanged Comment: I have asked our secretaries to get the [facility] for us. We are awaiting their call back. Course/Dx - Course Assessment/Plan: Bossman Knight [1832]. This patient is a 76 year old M BIBA to [facility] with a chief complaint of possible CVA. Yesterday, patient came to ED and was treated for UTI. Today, per EMS, nurse aid witnessed pt vomiting 2x while sitting at home. After vomiting, pt slumped to the left, had left-sided flaccidity, and had a forced gaze to the left. Last seen normal at 1715. Pt is on Coumadin. Per EMS, left-sided weakness is normal baseline (from previous CVA ) but the flaccidity is abnormal. Symptoms aggravated and alleviated by nothing. Pending EKG, CXR, CT Brain, and labs. INR 1.96; WBC 42,500; Trop 0.05. [1956] EKG reveals NSR with LVH, 85 bpm, no STEMI. CXR, per radiologist , reveals Stigmata of potential chronic obstructive pulmonary disease. Cardiomegaly without change. No acute cardiopulmonary process evident. CT brain , per radiologist, reveals 1. Negative for intracranial hemorrhage. No gross CT stigmata of acute or subacute ischemic stroke 2. Encephalomalacia from multiple previous infarcts. 3. Involutional change and stigmata of chronic small vessel ischemic disease. ED physician has reviewed these reports and agrees. [18:52] consult w/ Dr. Roy (Radiology) to discuss CT brain. [19:25] consult w/ Dr. Fernandes (Neuro) who agrees to see patient in ED. [19:32] consult w/ Dr. Greco ([place]) regarding pt. Pt given vancomycin and rochepin in ED. [20:00 ] consult w/ Dr. Yepez (Hospitalist) who agrees to admit pt to ICU. Pt is stable and will be admitted. - Diagnoses Provider Diagnoses: Sepsis, UTI (urinary tract infection), Encephalopathy acute - Physician Notifications Discussed Care Of Patient With: Rome Roy - Radiology Time Discussed With Above Provider: 18:52 Instructed by Provider To: Other - discuss labs - Critical Care Time Critical Care Time: 75-104 min - critical care time 90 minutes Discharge - Discharge Plan Condition: Guarded Disposition: ADMITTED TO [facility] Referrals: Mattie Drew MD [Primary Care Provider] - The documentation as recorded by the Susanne nieves Nilda accurately reflects the service I personally performed and the decisions made by me, Rome Yañez MD.
[2016-12-29] MEDS ORDERED: methylPREDNISolone 125 MG* 2 ML VIAL IV ONE (20:52)
[2016-12-29] MEDS ORDERED: diPHENhydraMINE IV* 50 MG/ML 1 ml VIAL (BENADRYL) SLOW PUSH ONE (20:52)
[2016-12-29] MEDS ORDERED: Famotidine IV* 10 MG/ML 2 ML (20 mg) IV SLOW PU ONE (20:53)
[2016-12-29] MEDS ORDERED: Warfarin TAB(*) 5 MG PO SCH (22:00)
[2016-12-29] MEDS: cefTRIAXone(*) 2 GM in NS 0.9% 100 ML* 100 ML IVPB SCH (23:22)
[2016-12-30] MEDS: NS 0.9% 1000 ML* 1,000 ML IV SCH (00:02)
--- NOTE | 2016-12-30 00:22 | CONS ---
CC: Benny Vallecillo MD; Mattie Drew MD * CONSULTATION REPORT: DATE OF CONSULT: 12/29/16 REQUESTING PHYSICIAN: Dr. Yañez. REASON FOR CONSULT: Worsening mental status, possible seizure. HISTORY OF PRESENT ILLNESS: Jo-Ann Cramer is a 76-year-old gentleman who I have known for years for outpatient care for multiple strokes, who in the last week has had increased fatigue in the last 2 days, increased confusion, increased bowel movements over the last few days, vomiting in the last 24 hours. This evening he was noted to not want to eat. He had decreased interaction with leaning to the left, noted to be flaccid with decreased posture. They did note at [facility] his eyes would move to the left and he was not acting himself. He was brought in and Ed Osorio was called. The [facility] performed telestroke consult and it was felt the clinical picture was more consistent with encephalopathy. He was not a candidate for TPA given INR of 1.9. A question was raised on seizure given intermittent eye deviation to the left with lateral type movements. Dr. 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 He is currently on anticoagulation with Coumadin and aspirin. At baseline he has cognitive impairment, left homonymous hemianopsia, left hemiplegia (arm > leg). PAST MEDICAL HISTORY: History also includes cardiomyopathy, coronary artery disease, left bundle-branch block, hypertension, sleep apnea, prostate cancer, myelodysplastic syndrome for which he has received Epogen and required repeat transfusions, lumbosacral spinal stenosis, gout, glaucoma, depression. He most recently was admitted to hospital with a left hip fracture and anemia in the setting of myelodysplastic syndrome in October 2016. Hyperlipidemia and GI reflux. CURRENT MEDICATIONS: Include, 1. Warfarin 5 mg p.o. q. Tuesday, Tuesday, and Tuesday. He did receive a dose today. 2. Warfarin 2.5 mg every Tuesday, Tuesday, Tuesday, and . 3. Spironolactone 25 mg half-tablet p.o. daily. 4. Vitamin B12 1000 mcg p.o. daily. 5. Carvedilol 3.125 mg half-tablet p.o. b.i.d. 6. Senna 8.6 mg 2 tablets p.o. q.h.s. 7. Travatan 0.004% instilled 1 drop both eyes at bedtime. 8. Docusate 100 mg 2 tablets p.o. daily. 9. Lisinopril 2.5 mg p.o. daily. 10. Polyethylene glycol 17 g p.o. daily. 11. Sertraline 150 mg p.o. daily. 12. Aspirin 81 mg p.o. daily. 13. Neupogen injected every Tuesday, Tuesday, and Tuesday. 14. Atorvastatin 10 mg p.o. daily. 15. Omeprazole 20 mg p.o. daily. 16. Vitamin D3 p.o. daily. 17. Mouthwash p.o. b.i.d. with p.r.n. of enema. 18. Dulcolax. 19. Milk of Magnesia. 20. Ondansetron. 21. Aspirin. 22. Sarna Sensitive lotion. ALLERGIES: Include SHELLFISH, LACTOSE, and WALNUTS. FAMILY HISTORY: Includes father who of coronary artery disease in his 60s , mother of old age. 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 He does not smoke. There is no significant alcohol intake. REVIEW OF SYSTEMS: Dr. Cramer is very fatigued tonight and has a hard time participating in review of systems. Positive finding were noted in HPI from the attempt of 10 review of systems from the patient, and discussion with in the HPI. PHYSICAL EXAM: Mr. Cramer's most recent vitals include a blood pressure of 129 /63, his pulse was 85, respiratory rate 22, saturation 95%, and his temperature today is 98.7, yesterday was 100.8. He had regular cardiac rhythm. There was decreased air entry at the bases of both lungs. No significant peripheral edema was noted. He does have increased tone at baseline on the left side with left leg externally rotated. His pupils were equal and responsive to light. I had a hard time visualizing his fundi. He varied between able to move his eyes to the right spontaneously and following finger, and at other times to left eye deviation with a hard time moving his eyes; with stimulation, this improved. He had left homonymous hemianopsia. There was left central 7th. He has a mild dysarthria at baseline. His palate was upgoing. Tongue was midline. He had decreased hearing to finger rub bilaterally. He had pain in his right shoulder to movement. His left upper extremity had movement 1 to 2+ in the hand. In the right upper extremity, he gave good strength in biceps, triceps, intrinsic hand muscles with overhead irrigator. In his right lower extremity, he had difficulty following commands but when stimulated, would wake up more and showed good leg extension, ability to move his knee up toward his chest get away from Babinski. Good foot dorsiflexion, which was hard for him to sustain in the right ankle. In his left lower extremity, he did minimal movement. His reflexes were 2+ at the right triceps, 3+ at the left triceps, absent in the lower extremities with toes downgoing on the right, equivocal on the left. He stated he felt sharp in all limbs but yet when doing double simultaneous testing, he ignored sensation on the left hand side. Gait could not be tested at this time. DIAGNOSTIC STUDIES/LAB DATA: Includes CBC, which showed a white count at 42.5, yesterday was 10.2; his hemoglobin and hematocrit are at 10.6 and 33; and his platelets 73,000. His neutrophil percentage was 95.5 and he has bandemia with 10% bands. His INR was 1.96. His metabolic panel showed an elevated glucose at 149, his chloride was low at 100. His glucose was 149, repeated at 171. His troponin was slightly elevated at 0.05. His alk phos is elevated at 219. Total cholesterol is 89, LDL 55, triglycerides 104. He had blood cultures drawn yesterday and he had a urine yesterday, which showed 1+ blood, trace ketones, 2+ protein, 1+ esterase, negative nitrites, 3+ white blood cells, 3+ red blood cells with present epithelial cells and positive urine ascorbic acid. Chest x-ray was read as showing changes consistent with COPD, cardiomegaly with no clear infiltrate. A CT of the brain showed his old strokes and small vessel ischemic disease. The film was reviewed directly compared to previous in September 2016 and I agree no new changes were noted. 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 His clinical picture is that of an encephalopathy and most likely worsening old stroke symptoms in the setting of infection. Given his intermittent deviation of eyes to the left, one must question intermittent seizures and corrosion technician is coming in for EEG tonight. We will consider further monitoring. Of concern is his white count that increased from 10.2 to 42.5 in the setting of a baseline myelodysplasia and usual low white blood cell count. He does have left shift. ER physician has started him on ceftriaxone and vancomycin. Blood cultures were discussed as well as he had a chest x-ray. Hospitalist team is to evaluate. Given the severity of his clinical condition, he needs to have close monitoring seizure precautions and would suggest ICU setting. Dr. Pisano will be taking over the neurologic service tomorrow and I will ask him to follow with you. [id number]/[facility] #: [id number] MTDD
--- NOTE | 2016-12-30 01:21 | HP ---
CC: Dr. Fernandes; Dr. Drew * HISTORY AND PHYSICAL: DATE OF ADMISSION: 12/29/16 PRIMARY CARE PROVIDER: Dr. Drew. CHIEF COMPLAINT: Altered mental status. HISTORY OF PRESENT ILLNESS: Mr. 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 The patient's gave additional information that the patient had been more lethargic for the last 1 week and increasingly confused. The patient's states that in fact over the last 3 weeks or so, he has had confusion related to his children and grandchildren. The patient has had increased frequency and volume of bowel movements. The patient reportedly had an episode of vomiting the day prior to admission, which prompted the evaluation in the emergency room yesterday where he was diagnosed with urinary tract infection and discharged back to [facility] to take Bactrim. The patient at approximately 4:15 p.m. had an episode of violent vomiting. The nurse at [facility] felt that the patient likely aspirated. At approximately 5 p.m., the patient was not acting himself and staring off to the left. He was unable to hold his posture and was completely flaccid on the left side. It was reported that he was unable to keep his head straight and his eyes kept wandering off to the left. The patient was brought back to the emergency room for evaluation. The patient denies any focal complaints at this point. He, however, has not been acting quite himself per the patient's . During my evaluation of the patient, it is noted that his head is twitching to the right. It was also noted within his right arm and leg. This is definitely new per his . The patient also developed hives in his left arm and his anterior chest wall. At the time of the vancomycin running in, the ceftriaxone had already completed. The hospitalist service was asked to evaluate the patient for admission after concerns of sepsis secondary to possible urinary tract infection versus other, especially given markedly elevated white blood cell count with bandemia, fever yesterday, and now encephalopathy. Additionally , there is concern for seizure activity. PAST MEDICAL HISTORY: 1. Myelodysplastic syndrome. 2. 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 3. Mild cognitive impairment secondary to multiple CVAs. 4. Hypertension. 5. Hyperlipidemia. 6. Obstructive sleep apnea with BiPAP use. 7. GERD. 8. CAD. PAST SURGICAL HISTORY: 1. Left hip fracture repair in September 2016. 2. CABG. MEDICATIONS: 1. Travatan Z 1 drop OU q.h.s. 2. Senna 2 tabs p.o. q.h.s. 3. MiraLAX 17 g p.o. daily. 4. Omeprazole 20 mg p.o. daily. 5. Lisinopril 2.5 mg p.o. daily. 6. Vitamin D3, 1000 units p.o. daily. 7. Dulcolax suppository 10 mg MD daily p.r.n. no bowel movement in 3 days. 8. Lipitor 10 mg p.o. q.h.s. 9. Aspirin 81 mg p.o. daily. 10. Zofran 4 mg p.o. q.8 hours p.r.n. nausea. 11. Tylenol 650 mg p.o. q.4 hours p.r.n. pain. 12. MOM 30 mL p.o. daily p.r.n. no bowel movement in 3 days. 13. Sertraline 150 mg p.o. daily. 14. Colace 200 mg p.o. daily. 15. Coreg 1.5625 mg p.o. b.i.d. 16. Coumadin 2.5 mg p.o. Tuesday, Tuesday, , Tuesday; 5 mg all other days of the week. 17. Spironolactone 12.5 mg p.o. daily. 18. Vitamin B12, 1000 mcg p.o. daily. ALLERGIES: SHRIMP, SHELLFISH, WALNUTS. The patient is also lactose intolerant. FAMILY HISTORY: Reported on prior history and physical indicates the patient's mom of cancer of unknown type and the patient's father had an MN at the age of 57. SOCIAL HISTORY: The patient smoked for approximately 1 year in his late 20s. He drinks alcohol on occasion. 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 He is . He has 2 children from his first marriage. His , [place], is his healthcare proxy. REVIEW OF SYSTEMS: Unobtainable from the patient, but he indicates that he feels not quite right, but nothing focal at this point and the bulk of history is obtained from the patient's . PHYSICAL EXAMINATION GENERAL: The patient is a well-developed elderly male, lying in the stretcher, now sedated after receiving Benadryl after developing hives. VITAL SIGNS: Blood pressure 129/63, pulse 85, respirations 22, temp 98.7, O2 sat 95% on room air. HEENT: Pupils are equal and round. Extraocular muscles appear to be intact, however, the patient frequently appears to be having his eyes deviate to the left. Oropharynx is clear. Oral mucosa is moist. There is no submandibular, cervical, or supraclavicular adenopathy. Thyroid is not enlarged. No thyroid nodules are noted. PULMONARY: Lungs are clear to auscultation bilaterally, though this is anterior and at the lateral bases. CARDIAC: Normal S1, S2. Regular rate and rhythm. I do not appreciate any murmurs. ABDOMEN: Bowel sounds present. Abdomen is soft, nontender, nondistended. MUSCULOSKELETAL: There is no cyanosis or clubbing of the digits. There is full range of motion of the right upper extremity and right lower extremity. Left upper and lower extremities have no movement due to his prior stroke. Sensation is intact, though spotty in the left lower extremity and that at times , the patient can feel light touch in certain areas and other times cannot. SKIN: Warm and dry. There are hives noted on the left forearm and the base of the neck of the upper chest. PSYCH: The patient prior to Benadryl was alert, appeared to be oriented to situation and place. After the Benadryl, the patient is sedated. DIAGNOSTIC STUDIES/LAB DATA: Sodium 134, potassium 4.3, chloride 100, CO2 26, BUN 16, creatinine 0.84, glucose 149, calcium 9.5. Albumin 4.1. AST 18, AST 10 , alk phos 219, bilirubin 0.5. Lactic acid 1.7. Troponin 0.05. INR 1.96. WBC 42.5, hemoglobin 10.6, hematocrit 33, platelets 73,000, neutrophils 95.5%, bands 10%. Total cholesterol 89, LDL 55, HDL 12.8, triglycerides 104. EKG reveals normal sinus rhythm, but it is a poor EKG with very noisy baseline. Chest x-ray, no acute pulmonary process. CT brain, negative for intracranial hemorrhage. No gross CT stigmata of acute or subacute ischemic stroke. Encephalomalacia from multiple prior infarcts is noted. Involutional change and stigmata of chronic small vessel ischemic disease is noted. ASSESSMENT AND PLAN: Mr. Cramer is a 76-year-old male with a complicated neurologic history in that he has sustained many cerebrovascular accidents with resultant left hemianopsia, left hemiplegia, and cognitive dysfunction, who was brought to the emergency room for the second time in 2 days, now with complaints of vomiting and altered mental status as well as leftward deviation of the eyes and poor truncal control. 1. Altered mental status. The etiology of this is not completely clear at this time. There are concerns that initially the patient may have had a stroke as it was described that the patient was completely flaccid on the left side; however, the patient's states that he is unable to lift his arm or leg at baseline; however, he at times is able to ambulate with a walker. Perhaps, being flaccid was a change in tone for the patient. It seems at this point, however, the patient is not having a stroke. Bigger concern is now the patient' s markedly elevated white blood cell count and if he may be infected with encephalopathy. The patient's urinalysis from yesterday was abnormal; however, no bacteria were noted. Urine culture is pending from this. We will repeat a urinalysis and culture today. There is concern that he may have aspirated; however, I suspect that that is not what led to his altered mental status as the timing does not seem to fit. The patient's does note that the vomiting is a new issue for the patient as is the change in his bowel movements. She describes him to have more frequent bowel movements, though not even on a daily basis and much more voluminous stools. We will go ahead and do a CT scan of the abdomen and pelvis with IV contrast as well as obtain stool culture and send stool for C. difficile testing if he does have a diarrhea episode as he was on antibiotics for urinary tract infection approximately a week and a half ago. Additionally, seizure is in the differential. Several times during the course of my evaluation, the patient is noted to have twitching of his head to the right as well as twitching of the right arm and at times lower extremity. He is being monitored by EEG and this will be continuous overnight. This will be reviewed in the morning by Neurology. Dr. Fernandes did see the patient in consultation and did not request any antiepileptics at this point. 2. Myelodysplastic syndrome. The patient's anemia and thrombocytopenia are at baseline, his white blood cell count being 42.5000; however, is markedly abnormal for the patient. 3. Elevated troponin. I suspect this represents demand ischemia from the process that has made the patient confused - likely an infectious source. We will get a followup troponin at 10 p.m. When the patient was alert, he denied any chest pain. His EKG while of poor quality, did not show any concerning findings of ST elevation. 3. Hypertension. The patient will be maintained on his usual home medication regimen of Coreg and lisinopril. 4. Obstructive sleep apnea. At this point, the patient will not be able to utilize his BiPAP as he has his EEG monitoring ongoing; however, the patient does use BiPAP and this could be initiated as soon as it is safe for him to use the machine. 5. Coronary artery disease. As above, the patient's troponin is mildly elevated, he will be maintained on his usual dose of aspirin and Coreg. 6. History of multiple cerebrovascular accidents with resultant left hemianopsia and left hemiplegia. The patient will be maintained on his usual dose of aspirin and Coumadin. His INR is slightly subtherapeutic. At this point, I am not going to increase the dose; however, as he is going to be receiving Flagyl for concerns of infection and this can raise the INR. 7. DVT prophylaxis. According to the Adult Thrombosis Prophylaxis Risk Factor Assessment Guide, the patient has a total risk factor score of 4 making him high risk. He is already on Coumadin and this will be used as DVT prophylaxis. Code status is full and again the patient's is his healthcare proxy. TIME SPENT: 85 minutes were spent admitting this patient. [id number]/[facility] #: [id number] DIEGO
[2016-12-30 02:32] LABS: Urine Bacteria Absent (Absent); Urine Bilirubin Negative (Negative); Urine Glucose Negative (Negative); Urine Nitrite Negative (Negative)
[2016-12-30 06:21] LABS: Hematocrit 29 % (42-52); Hemoglobin 9.3 g/dl (14.0-18.0); Mean Corpuscular HGB Conc 33 g/dl (31-36); Mean Corpuscular Hemoglobin 30 pg (27-31); Mean Corpuscular Volume 91 fL (80-94); Mean Platelet Volume 11 um3 (7.4-10.4); Red Blood Count 3.14 10^6/ul (4.0-5.4); Red Cell Distribution Width 19 % (10.5-15); White Blood Count 36.1 10^3/ul (3.5-10.8)
[2016-12-30 06:27] LABS: Comments Flag Yes
[2016-12-30 06:29] LABS: Add Diff/Slide Review? Slide Review Added; BUN/Creatinine Ratio 18.1 (8-20); Calcium 9.3 mg/dL (8.6-10.3); EGFR African American 135.8 (>60); EGFR Non-African American 105.6 (>60); Potassium 4.1 mmol/L (3.5-5.0)
--- NOTE | 2016-12-30 07:43 | RAD ---
INDICATION: Vomiting and diarrhea. COMPARISON: Comparison is made with a prior CT of the abdomen and pelvis from August 25, 2016. TECHNIQUE: A CT scan of the abdomen and pelvis was performed without intravenous or oral contrast. Contiguous axial sections were obtained from the lung bases through the symphysis pubis. Images were reconstructed in the coronal and sagittal planes. The exam is limited due to motion artifact. FINDINGS: There are small dependent bilateral lower lobe infiltrates. No pleural effusion is present. The liver and spleen are normal in size without significant focal abnormality on this noncontrast study. There are gallstones present. No gallbladder wall thickening or pericholecystic fluid is noted. The pancreas appears to be within normal limits. The kidneys and adrenal glands are normal in size. There is a 2 mm nonobstructing calculus in the lower pole of the left kidney. There is a cyst in the midportion of the left kidney measuring 2.8 cm in size which is unchanged from the prior CT study. There is no evidence for hydronephrosis. The urinary bladder is not thickened. No bladder wall thickening is present. The patient is status post prostatectomy. The aorta is normal in caliber with moderate calcific plaque present. No significant enlarged retroperitoneal lymph nodes are seen. The stomach, small and large bowel appear nondistended. The appendix is not well visualized. There is mild to moderate descending and sigmoid diverticulosis. There is no evidence for diverticulitis or colitis. No free intraperitoneal air or fluid is seen. There are lytic lesions in the T7 and T8 and T9 vertebral bodies which are partially visualized on this study. These appear to be present on the prior CT of the abdomen and chest from August 25 and 2016. The results of this examination were discussed with Dr. Evans. IMPRESSION: 1. NO EVIDENCE FOR ACUTE FINDING. 2. LYTIC LESIONS PRESENT WITHIN THE LOWER DORSAL VERTEBRA DESCRIBED. NO SIGNIFICANT CHANGE FROM THE PRIOR STUDY. RECOMMEND MRI IMAGING FOR FURTHER EVALUATION. 3. CHOLELITHIASIS. 4. NONOBSTRUCTING RIGHT RENAL CALCULUS.
[2016-12-30] MEDS: Omeprazole CAP* 20 MG PO SCH (09:12)
[2016-12-30] MEDS: Aspirin Low Dose CHEW TAB* 81 MG PO SCH (09:12)
[2016-12-30] MEDS: Lisinopril TAB* 5 MG PO SCH (09:12)
[2016-12-30] MEDS: Carvedilol TAB* 3.125 MG PO SCH ×2 (09:13→21:39)
[2016-12-30] MEDS: Sertraline* 50 MG TAB PO SCH (09:14)
[2016-12-30] MEDS: cefTRIAXone(*) 2 GM in NS 0.9% 100 ML* 100 ML IVPB SCH (09:53)
[2016-12-30] MEDS ORDERED: Gadoteridol* (CONTRAST) 279.3 MG/ML 10 ML IV ONE (10:55)
[2016-12-30] MEDS: metroNIDAZOLE IV 500 MG/100ML* 500 MG/100 ML BAG IVPB SCH ×2 (11:42)
--- NOTE | 2016-12-30 11:49 | RAD ---
HISTORY: Lytic lesions of the spine COMPARISONS: CT dated December 29, 2016 TECHNIQUE: The following sequences were obtained of the thoracic spine: Sagittal and axial T1- and T2-weighted images, coronal T2-weighted images, and sagittal STIR images. Additionally, axial and sagittal T1 weighted images were obtained after contrast enhancement with a gadolinium-based intravenous contrast agent.. FINDINGS: Localization is based on counting from C2 SPINAL CORD, CONUS, AND CAUDA EQUINA: The visualized spinal cord, conus, and cauda equina are normal in caliber, position, and signal intensity. ALIGNMENT: The alignment is normal. VERTEBRAL BODIES: There are hemangiomas of T7 and T9. The vertebral bodies are preserved in height. There is ossification along the anterior syndesmophytes. There is no bone edema. There is no abnormal enhancement. JOINTS: There is osteoarthritis of the costovertebral articulations. MUSCULATURE: Unremarkable INTERVERTEBRAL DISCS: There is diffuse loss of intervertebral disc height and T2 signal throughout the spine. AXIAL IMAGES: There is no central canal stenosis or neuroforaminal narrowing. SOFT TISSUES: The visualized soft tissues of the chest and upper abdomen are unremarkable. OTHER: There is no abnormal enhancement. IMPRESSION: 1. THORACIC HEMANGIOMAS. 2. NO ABNORMAL ENHANCEMENT OR BONE EDEMA TO SUGGEST NEOPLASM OF THE SPINE. 3. FINDINGS SUGGESTIVE OF ANKYLOSING SPONDYLITIS. 4. DEGENERATIVE DISC DISEASE AND OSTEOARTHRITIS. 5. NO SIGNIFICANT NEURAL FORAMINAL NARROWING OR CENTRAL CANAL STENOSIS..
--- NOTE | 2016-12-30 16:32 | EEG ---
CARE HOME VIDEO/EEG MONITORING - Monitoring Monitoring Start Date: 12/29/16 Current Monitoring Session: 12/29/16 at 20:50 to 12/30/16 at 09:13 EEG Clinical Indication: Jo-Ann Cramer is a 76 year old man who has a history of multiple strokes, including right hemispheric stroke with residual left hemiparesis. He presented with several days of fatigue and malaise, then diarrhea and vomiting. He was brought to the ER when staff at his facility noticed left gaze deviation and that he was not acting normally. In the ER, he was again noted to have gaze deviation to the left and there was concern for recurrent seizure activity in the setting of sepsis. Long-term monitoring is requested to evaluate for intermittent seizures. Introduction: INTRODUCTION: The EEG was monitored from 21 scalp electrodes. Nineteen electrodes consisted of the standard parasagittal, temporal and midline leads of the International 10 -20 system. In addition, special electrodes T1 and T2 were placed. EEG data were recorded on an [employer] system with simultaneous MPEG-4 digital video recording of patient behavior. EEG recording was in a monopolar montage with all electrodes referenced to FCz. Significant behavioral events were signaled by an event button, or putative electrical seizure events were detected by a computer program. All EEG data were reviewed in their entirety on a monitor with reconstruction of montages and adjustments of sensitivity and filtering. Simultaneous patient behavior was viewed on an adjacent monitor and correlated with the EEG. - Medications Active Medications: Acetaminophen (Tylenol Tab*) 650 mg PO Q4H PRN PRN Reason: PAIN Aspirin (Aspirin Low Dose Tab*) 81 mg PO DAILY [facility] Last Admin: 12/30/16 09:12 Dose: 81 mg Atorvastatin Calcium (Lipitor*) 10 mg PO 2100 [facility] Carvedilol (Coreg Tab*) 1.5625 mg PO BID [facility] Last Admin: 12/30/16 09:13 Dose: 1.5625 mg Metronidazole/Sodium Chloride (Flagyl 500 Mg Ivpb*) 500 mg in 100 mls @ 100 mls /hr IVPB Q12H [facility] Last Admin: 12/30/16 11:42 Dose: 100 mls/hr Sodium Chloride (Ns 0.9% 1000 Ml*) 1,000 mls @ 125 mls/hr IV PER RATE [facility] Last Admin: 12/30/16 00:02 Dose: 125 mls/hr Ceftriaxone Sodium 2 gm/ (Sodium Chloride) 100 mls @ 200 mls/hr IVPB Q12H [facility] Last Admin: 12/30/16 09:53 Dose: 200 mls/hr Lisinopril (Prinivil Tab*) 2.5 mg PO DAILY [facility] Last Admin: 12/30/16 09:12 Dose: 2.5 mg Omeprazole (Prilosec Cap*) 20 mg PO DAILY [facility] Last Admin: 12/30/16 09:12 Dose: 20 mg Sertraline HCl (Zoloft*) 150 mg PO DAILY [facility] Last Admin: 12/30/16 09:14 Dose: 150 mg Warfarin Sodium (Coumadin Tab(*)) 2.5 mg PO SuTuThSa@1700 [facility]OOK PRN Reason: Protocol Warfarin Sodium (Coumadin Tab(*)) 5 mg PO MoWeFr@1700 [facility]OOK PRN Reason: Protocol He was also given Benadryl IV at 21:12 on 12/29 and methylprednisolone at 21:16 on 12/29. - Description Background: The background demonstrated an interhemispheric asymmetry and neither hemisphere was entirely normal, but there was greater pathology over the right hemisphere. At the onset of the recording, the right hemisphere demonstrated a pattern of rhythmic delta activity predominantly in the parietal region, which is detailed below. Once this pattern abated, there was some discernible organization in terms of identifiable anterior-posterior voltage and frequency gradients. There was a posterior dominant rhythm of 8 Hertz maximally, which was irregular and not as well sustained as it was in the left hemisphere. In addition, there was a relative paucity of faster frequency activity in the right hemisphere, and a greater degree of polymorphic mixed frequency slowing. Over the left hemisphere, there was identifiable organization and defined anterior to posterior voltage and frequency gradients. There was a posterior dominant rhythm of 8 Hz, which is slower than expected for age. Anteriorly, there was an expected pattern of lower voltage, faster frequency activity. The sleep background was showed some rudimentary spindle activity but progression through other stages of sleep was not readily evident. Intericatal Epileptiform Activity: None Ictal Activity: At the onset of the recording, there was a pattern of rhythmic, 1 to 3 Hz activity with overriding faster frequency activity and intermixed sharp features which was maximal at PZ, P4, T6 and demonstrated a field to O2. This pattern waxed and waned for 30 minutes and sometimes spread more centrally into C4, then spontaneously resolved and the background then resembled that described above for the remainder of the recording. During this time, he had occasional twitching of his feet, head twitching to the right and sometimes right arm twitching. This clinical activity was not time-locked to the electrographic activity and sometimes abated for a short time despite persistence of this pattern. - Impression Impression: This is an abnormal long-term monitoring session. At the beginning of the recording, there was a pattern of rhythmic delta slowing in the right parietal region which waxed and waned in frequency, sometimes spread more centrally and contained intermixed sharp features. This pattern suddenly terminated after 30 minutes without any specific intervention. This was consistent with an ictal pattern which spontaneously terminated. Clinically, the patient was noted to have some twitching of his head to the right as well as intermittent right arm and bilateral feet twitching, but this was not continuous. The remainder of the recording was notable for background slowing which was worse on the right, with a relative loss of faster frequency activity on the right as well. These findings are suggestive of a mild, non-specific diffuse encephalopathy which affects the right hemisphere to a greater degree. No interictal epileptiform discharges were seen.
--- NOTE | 2016-12-30 16:42 | PN ---
Subjective Date of Service: 12/30/16 Interval History: Vomiting resolved. hemodynamically stable but spiked another fever this afternoon. MRI thoracic spine (after lytic lesions seen on CT abd/pelvis though also seen on examination of prior) with e/o Anklyosing spondylolitis. Leukocytosis slightly improved. Pt follows with Dr. Vallecillo for myelodysplasia ( dx 17 years ago), used to be transfusion dependent but ever since fall at [facility] (now living at [facility]) pt has been on neugen F and not required transfusions. Got amoxicillin prior to recent dental cleaning ~1week ago per Dr. Drew. No diarrhea noted and says has been having very hard stools recently. Objective Active Medications: Acetaminophen (Tylenol Tab*) 650 mg PO Q4H PRN PRN Reason: PAIN Aspirin (Aspirin Low Dose Tab*) 81 mg PO DAILY [facility] Last Admin: 12/30/16 09:12 Dose: 81 mg Atorvastatin Calcium (Lipitor*) 10 mg PO 2100 BROOK Carvedilol (Coreg Tab*) 1.5625 mg PO BID [facility] Last Admin: 12/30/16 09:13 Dose: 1.5625 mg Metronidazole/Sodium Chloride (Flagyl 500 Mg Ivpb*) 500 mg in 100 mls @ 100 mls /hr IVPB Q12H [facility] Last Admin: 12/30/16 11:42 Dose: 100 mls/hr Sodium Chloride (Ns 0.9% 1000 Ml*) 1,000 mls @ 125 mls/hr IV PER RATE [facility] Last Admin: 12/30/16 00:02 Dose: 125 mls/hr Ceftriaxone Sodium 2 gm/ (Sodium Chloride) 100 mls @ 200 mls/hr IVPB Q12H [facility] Last Admin: 12/30/16 09:53 Dose: 200 mls/hr Lisinopril (Prinivil Tab*) 2.5 mg PO DAILY [facility] Last Admin: 12/30/16 09:12 Dose: 2.5 mg Omeprazole (Prilosec Cap*) 20 mg PO DAILY [facility] Last Admin: 12/30/16 09:12 Dose: 20 mg Sertraline HCl (Zoloft*) 150 mg PO DAILY [facility] Last Admin: 12/30/16 09:14 Dose: 150 mg Warfarin Sodium (Coumadin Tab(*)) 2.5 mg PO SuTuThSa@1700 [facility] PRN Reason: Protocol Warfarin Sodium (Coumadin Tab(*)) 5 mg PO MoWeFr@1700 [facility] PRN Reason: Protocol Vital Signs 12/29/16 12/29/16 12/29/16 21:30 21:44 22:00 Temperature 102.2 F Pulse Rate 87 86 88 Respiratory 21 25 21 Rate Blood Pressure 142/102 144/64 120/70 (mmHg) O2 Sat by Pulse 97 94 97 Oximetry 12/29/16 12/29/16 12/29/16 22:34 22:35 22:50 Temperature Pulse Rate 90 91 Respiratory 26 14 18 Rate Blood Pressure 94/71 (mmHg) O2 Sat by Pulse 93 95 Oximetry 12/29/16 12/29/16 12/29/16 23:00 23:15 23:30 Temperature Pulse Rate 94 89 93 Respiratory 50 18 18 Rate Blood Pressure 122/57 132/66 144/64 (mmHg) O2 Sat by Pulse 97 93 98 Oximetry 12/29/16 12/30/16 12/30/16 23:45 00:00 00:15 Temperature Pulse Rate 91 98 89 Respiratory 23 27 24 Rate Blood Pressure 137/60 161/87 139/60 (mmHg) O2 Sat by Pulse 95 95 96 Oximetry 12/30/16 12/30/16 12/30/16 00:30 00:34 00:45 Temperature Pulse Rate 93 94 Respiratory 24 24 19 Rate Blood Pressure 131/58 137/64 (mmHg) O2 Sat by Pulse 96 96 Oximetry 12/30/16 12/30/16 12/30/16 01:00 01:15 01:30 Temperature Pulse Rate 89 89 96 Respiratory 24 19 23 Rate Blood Pressure 139/57 131/63 132/59 (mmHg) O2 Sat by Pulse 97 95 96 Oximetry 12/30/16 12/30/16 12/30/16 01:45 01:54 02:00 Temperature Pulse Rate 89 93 92 Respiratory 23 21 23 Rate Blood Pressure 126/59 136/64 (mmHg) O2 Sat by Pulse 98 95 96 Oximetry 12/30/16 12/30/16 12/30/16 02:15 02:30 02:45 Temperature Pulse Rate 88 93 97 Respiratory 22 25 23 Rate Blood Pressure 130/66 120/58 126/62 (mmHg) O2 Sat by Pulse 96 98 97 Oximetry 12/30/16 12/30/16 12/30/16 03:00 03:15 03:30 Temperature Pulse Rate 87 85 87 Respiratory 21 19 19 Rate Blood Pressure 122/60 128/57 117/55 (mmHg) O2 Sat by Pulse 97 97 96 Oximetry 12/30/16 12/30/16 12/30/16 03:45 04:00 04:16 Temperature 99.6 F Pulse Rate 97 87 86 Respiratory 24 18 18 Rate Blood Pressure 127/58 125/76 119/71 (mmHg) O2 Sat by Pulse 97 93 97 Oximetry 12/30/16 12/30/16 12/30/16 04:29 04:31 04:45 Temperature Pulse Rate 91 87 93 Respiratory 19 15 28 Rate Blood Pressure 107/59 112/50 (mmHg) O2 Sat by Pulse 94 95 96 Oximetry 12/30/16 12/30/16 12/30/16 05:00 05:15 05:31 Temperature Pulse Rate 81 84 85 Respiratory 18 16 20 Rate Blood Pressure 119/54 105/40 120/66 (mmHg) O2 Sat by Pulse 98 97 98 Oximetry 12/30/16 12/30/16 12/30/16 05:45 06:00 06:15 Temperature Pulse Rate 82 83 84 Respiratory 22 18 21 Rate Blood Pressure 120/51 105/42 117/46 (mmHg) O2 Sat by Pulse 97 97 92 Oximetry 12/30/16 12/30/16 12/30/16 06:29 06:30 06:45 Temperature Pulse Rate 82 83 80 Respiratory 23 19 17 Rate Blood Pressure 115/48 119/49 (mmHg) O2 Sat by Pulse 98 94 97 Oximetry 12/30/16 12/30/16 12/30/16 07:00 07:01 07:15 Temperature Pulse Rate 85 81 79 Respiratory 15 19 17 Rate Blood Pressure 102/45 109/49 (mmHg) O2 Sat by Pulse 97 98 97 Oximetry 12/30/16 12/30/16 12/30/16 07:31 07:39 07:40 Temperature 99.7 F Pulse Rate 79 80 Respiratory 17 15 Rate Blood Pressure 119/50 (mmHg) O2 Sat by Pulse 97 97 Oximetry 12/30/16 12/30/16 12/30/16 07:45 07:59 08:00 Temperature Pulse Rate 83 86 76 Respiratory 32 28 23 Rate Blood Pressure 90/49 117/73 122/62 (mmHg) O2 Sat by Pulse 97 98 97 Oximetry 12/30/16 12/30/16 12/30/16 08:01 09:00 10:00 Temperature Pulse Rate 80 77 73 Respiratory 32 19 19 Rate Blood Pressure 128/54 118/56 (mmHg) O2 Sat by Pulse 98 99 95 Oximetry 12/30/16 12/30/16 12/30/16 10:19 10:57 11:42 Temperature 100.2 F Pulse Rate 81 Respiratory 20 15 Rate Blood Pressure (mmHg) O2 Sat by Pulse 92 Oximetry 12/30/16 12/30/16 12/30/16 12:00 12:09 13:00 Temperature Pulse Rate 75 74 82 Respiratory 16 24 25 Rate Blood Pressure 123/58 124/69 (mmHg) O2 Sat by Pulse 94 97 99 Oximetry 12/30/16 12/30/16 12/30/16 13:09 13:47 13:48 Temperature Pulse Rate 77 89 Respiratory 18 27 23 Rate Blood Pressure (mmHg) O2 Sat by Pulse 99 97 Oximetry 12/30/16 12/30/16 12/30/16 14:00 15:00 15:05 Temperature Pulse Rate 84 86 86 Respiratory 24 36 26 Rate Blood Pressure (mmHg) O2 Sat by Pulse 99 93 95 Oximetry 12/30/16 12/30/16 15:32 16:00 Temperature 102.5 F 101.3 F Pulse Rate Respiratory 22 Rate Blood Pressure (mmHg) O2 Sat by Pulse Oximetry Oxygen Devices in Use Now: None Appearance: NAD, lying in bed Eyes: No Scleral Icterus, PERRLA Ears/Nose/Mouth/Throat: NL Teeth, Lips, Gums, Mucous Membranes Moist Respiratory: Symmetrical Chest Expansion and Respiratory Effort, Clear to Auscultation Cardiovascular: No Edema, - - regular s1 s2, JAZZY RUSB Abdominal: NL Sounds; No Tenderness; No Distention, No Hepatosplenomegaly Extremities: No Edema, No Clubbing, Cyanosis Skin: No Rash or Ulcers, No Nodules or Sclerosis Neurological: Alert and Oriented x 3, - - 3+ LLE; 5/5 RLE; 3/5 left channel partners; 5/5 right channel partners. left nasolabial fold droop. Facial sensation intact. Result Diagrams: 12/30/16 05:35 12/30/16 05:35 Additional Lab and Data: Laboratory Results - last 24 hr 12/29/16 12/29/16 12/29/16 18:45 18:45 18:45 WBC 42.5 H RBC 3.65 L Hgb 10.6 L Hct 33 L MCV 90 MCH 29 MCHC 32 RDW 19 H Plt Count 73 L MPV 10 Immature Gran % (Auto) 13 H Neut % (Auto) 95.5 H Lymph % (Auto) 2.7 L Hunt % (Auto) 1.7 Eos % (Auto) 0 Baso % (Auto) 0.1 Absolute Neuts (auto) 40.6 H Absolute Lymphs (auto) 1.2 Absolute Monos (auto) 0.7 Absolute Eos (auto) 0 Absolute Basos (auto) 0 Absolute Nucleated RBC 0.03 Neutrophils % 81 Band Neutrophils % 10 H Lymphocytes % 4 L Monocytes % 1 Eosinophils % 1 Metamyelocytes % 3 H Nucleated RBC % 0.1 Normal RBC Morphology Normal INR (Anticoag Therapy) 1.96 H APTT 35.9 Sodium 134 Potassium 4.3 Chloride 100 L Carbon Dioxide 26 Anion Gap 8 BUN 16 Creatinine 0.84 Est GFR ( Amer) 113.7 Est GFR (Non-Af Amer) 88.4 BUN/Creatinine Ratio 19.0 Glucose 149 H POC Glucose (mg/dL) Lactic Acid Calcium 9.8 Total Bilirubin 0.50 AST 18 ALT 10 Alkaline Phosphatase 219 H Troponin I 0.05 H* Total Protein 7.9 Albumin 4.1 Globulin 3.8 Albumin/Globulin Ratio 1.1 Triglycerides 104 Cholesterol 89 LDL Cholesterol 55 HDL Cholesterol 12.8 Urine Color Urine Appearance Urine pH Ur Specific [place] Urine Protein Urine Ketones Urine Blood Urine Nitrate Urine Bilirubin Urine Urobilinogen Ur Leukocyte Esterase Urine WBC (Auto) Urine RBC (Auto) Urine Bacteria Urine Glucose Urine Ascorbic Acid Blood Type Antibody Screen Direct Antiglob Test 12/29/16 12/29/16 12/29/16 18:45 18:45 18:59 WBC RBC Hgb Hct MCV MCH MCHC RDW Plt Count MPV Immature Gran % (Auto) Neut % (Auto) Lymph % (Auto) Hunt % (Auto) Eos % (Auto) Baso % (Auto) Absolute Neuts (auto) Absolute Lymphs (auto) Absolute Monos (auto) Absolute Eos (auto) Absolute Basos (auto) Absolute Nucleated RBC Neutrophils % Band Neutrophils % Lymphocytes % Monocytes % Eosinophils % Metamyelocytes % Nucleated RBC % Normal RBC Morphology INR (Anticoag Therapy) APTT Sodium Potassium Chloride Carbon Dioxide Anion Gap BUN Creatinine Est GFR ( Amer) Est GFR (Non-Af Amer) BUN/Creatinine Ratio Glucose POC Glucose (mg/dL) 171 H Lactic Acid 1.7 Calcium Total Bilirubin AST ALT Alkaline Phosphatase Troponin I Total Protein Albumin Globulin Albumin/Globulin Ratio Triglycerides Cholesterol LDL Cholesterol HDL Cholesterol Urine Color Urine Appearance Urine pH Ur Specific [place] Urine Protein Urine Ketones Urine Blood Urine Nitrate Urine Bilirubin Urine Urobilinogen Ur Leukocyte Esterase Urine WBC (Auto) Urine RBC (Auto) Urine Bacteria Urine Glucose Urine Ascorbic Acid Blood Type O Positive Antibody Screen Positive Direct Antiglob Test 2+ 12/29/16 12/29/16 12/30/16 22:15 23:00 05:35 WBC RBC Hgb Hct MCV MCH MCHC RDW Plt Count MPV Immature Gran % (Auto) Neut % (Auto) Lymph % (Auto) Hunt % (Auto) Eos % (Auto) Baso % (Auto) Absolute Neuts (auto) Absolute Lymphs (auto) Absolute Monos (auto) Absolute Eos (auto) Absolute Basos (auto) Absolute Nucleated RBC Neutrophils % Band Neutrophils % Lymphocytes % Monocytes % Eosinophils % Metamyelocytes % Nucleated RBC % Normal RBC Morphology INR (Anticoag Therapy) APTT Sodium 132 L Potassium 4.1 Chloride 102 Carbon Dioxide 25 Anion Gap 5 BUN 13 Creatinine 0.72 Est GFR ( Amer) 135.8 Est GFR (Non-Af Amer) 105.6 BUN/Creatinine Ratio 18.1 Glucose 146 H POC Glucose (mg/dL) Lactic Acid Calcium 9.3 Total Bilirubin AST ALT Alkaline Phosphatase Troponin I 0.05 H* Total Protein Albumin Globulin Albumin/Globulin Ratio Triglycerides Cholesterol LDL Cholesterol HDL Cholesterol Urine Color Yellow Urine Appearance Clear Urine pH 6.0 Ur Specific [place] 1.016 Urine Protein Negative Urine Ketones Negative Urine Blood 1+ H Urine Nitrate Negative Urine Bilirubin Negative Urine Urobilinogen Negative Ur Leukocyte Esterase Negative Urine WBC (Auto) Trace(0-5/hpf) Urine RBC (Auto) 3+(>10/hpf) H Urine Bacteria Absent Urine Glucose Negative Urine Ascorbic Acid * H Blood Type Antibody Screen Direct Antiglob Test 12/30/16 12/30/16 05:35 05:35 WBC 36.1 H RBC 3.14 L Hgb 9.3 L Hct 29 L MCV 91 MCH 30 MCHC 33 RDW 19 H Plt Count 60 L MPV 11 H Immature Gran % (Auto) Neut % (Auto) 97.1 H Lymph % (Auto) 2.2 L Hunt % (Auto) 0.6 L Eos % (Auto) 0 Baso % (Auto) 0.1 Absolute Neuts (auto) 35.0 H Absolute Lymphs (auto) 0.8 L Absolute Monos (auto) 0.2 Absolute Eos (auto) 0 Absolute Basos (auto) 0 Absolute Nucleated RBC 0 Neutrophils % Band Neutrophils % Lymphocytes % Monocytes % Eosinophils % Metamyelocytes % Nucleated RBC % 0 Normal RBC Morphology INR (Anticoag Therapy) 2.11 H APTT Sodium Potassium Chloride Carbon Dioxide Anion Gap BUN Creatinine Est GFR ( Amer) Est GFR (Non-Af Amer) BUN/Creatinine Ratio Glucose POC Glucose (mg/dL) Lactic Acid Calcium Total Bilirubin AST ALT Alkaline Phosphatase Troponin I Total Protein Albumin Globulin Albumin/Globulin Ratio Triglycerides Cholesterol LDL Cholesterol HDL Cholesterol Urine Color Urine Appearance Urine pH Ur Specific [place] Urine Protein Urine Ketones Urine Blood Urine Nitrate Urine Bilirubin Urine Urobilinogen Ur Leukocyte Esterase Urine WBC (Auto) Urine RBC (Auto) Urine Bacteria Urine Glucose Urine Ascorbic Acid Blood Type Antibody Screen Direct Antiglob Test Assess/Plan/Problems-Billing Assessment: 76 yo male PMH CABG, ICM, myelodysplasia on MWF neupogen (and recently transfusion dependant), 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 Profound leukocytosis. On CFTX, flagyl. - Patient Problems (1) Fever Current Visit: Yes Status: Acute Code(s): R50.9 - FEVER, UNSPECIFIED SNOMED Code(s): 991386990 Comment: Bandemia + significant Leukocytosis. Unclear source. UA negative. f/u Blood Cultures. f/u stool samples (though none yet and frequently takes stool softners) Recent vomiting so aspiration a concern. Vs hematological. Stop ceftriaxone and flagyl and start zosyn given continued high fevers and aspiration events. Thoracic spine MRI w/o e/o abscess. (2) Myelodysplastic disease Current Visit: No Status: Chronic Priority: High Onset Date: 10/14/14 Code(s): C94.6 - MYELODYSPLASTIC DISEASE, NOT CLASSIFIED SNOMED Code(s): 535373248 Comment: - Treated with Neupogen MW as oupatient. holding in setting of profound leukocytosis and bandemia. (3) Vomiting Current Visit: Yes Status: Acute Code(s): R11.10 - VOMITING, UNSPECIFIED SNOMED Code(s): 243223408 Comment: passed bedside swallow and has not returned. (4) Frequent bowel movements Current Visit: Yes Status: Acute Code(s): R19.4 - CHANGE IN BOWEL HABIT SNOMED Code(s): 050299087 Comment: but none here. Cdiff pending. (5) CVA (cerebral infarction) Current Visit: No Status: Chronic Priority: High Onset Date: 10/31/13 Code(s): I63.9 - CEREBRAL INFARCTION, UNSPECIFIED SNOMED Code(s): 776462304 Comment: continue aspirin, coumadin left side hemiparesis appreciate Neurology recs. s/p code zuñiga in ED with UR evaluation. (6) Hypertension Current Visit: No Status: Chronic Priority: Medium Code(s): I10 - ESSENTIAL (PRIMARY) HYPERTENSION SNOMED Code(s): 40923262 Comment: - Continue Carvedilol 1.5625mg bid - Lisinopril 2.5mg daily (7) Twitching Current Visit: Yes Status: Acute Code(s): R25.3 - FASCICULATION SNOMED Code(s): 828964458 Comment: appreciate Neuology recs f/u EEG report. Status and Disposition: medicine inpatient, transition to floor. Attending: Dread Aviles
[2016-12-30] MEDS ORDERED: Piperacillin/Tazobac ADVAN(*) 3.375 GM in NS 0.9% 100 ML* 100 ML IVPB ONE (17:20)
[2016-12-30] MEDS ORDERED: Zosyn per Pharmacy* NOTE FOLLOW UP SCH (18:00)
[2016-12-30] MEDS: Warfarin TAB(*) 2.5 MG PO SCH (18:20)
--- NOTE | 2016-12-30 20:30 | CONS ---
NEUROLOGY FOLLOWUP NOTE: DATE OF FOLLOWUP: 12/30/16 LOCATION: He is in ICU bed 5. HOSPITALIST: Dr. Yepez. CHIEF COMPLAINT: Change in mental status, sepsis. INTERVAL HISTORY: Since yesterday, Mr. Cramer is feeling much better. He confabulates little bit about coming in to the hospital saying he remembers it, but clearly does not recall the details. Currently, he denies headaches or intestinal problems or chest pain or shortness of breath. MEDICATIONS: Are reviewed. He is currently on: 1. Atorvastatin 10 mg p.o. q. day. 2. Coreg mg p.o. b.i.d. 3. Ceftriaxone 2 g IV q.12 hours. 4. Lisinopril 2.5 mg p.o. q. day. 5. Metronidazole 500 mg IV q.12 hours. 6. Omeprazole 20 mg p.o. q. day. 7. Sertraline 150 mg p.o. q. day. 8. Warfarin. PHYSICAL EXAM: Most recent temperature is 100.2 by temporal scan, blood pressure is running about 130/50, heart rate is in the 70s and regular. Respiratory rate is 24 and oxygen saturation is 97% on room air. Neck is supple. Abdomen soft. Heart is in a regular rhythm without murmurs. I do not hear any cervical bruits. Oral mucosa is moist and atraumatic. Neurological Exam: Eye movements are full. He has a left homonymous hemianopsia. He has a central pattern left facial weakness. Speech is mildly dysarthric. He has a spastic left hemiplegia, worse in the arm than the leg. He has good strength in the right arm and leg. He is conversant and his language is fluent. He is oriented to self and hospital, but does not know the day or week and does not recall being in the emergency room yesterday. DIAGNOSTIC STUDIES/LAB DATA: Notable for white blood cell count down to 36.1 from 42.5 yesterday, platelet count 60,000 which is fairly typical for him, and hemoglobin is 9.3. He has a left shift with 81% neutrophils and 10% bands. INR today is 2.11. Chemistry is notable for sodium of 132 today, otherwise unremarkable chemistries other than a glucose of 146. Lactic acid was 1.7 yesterday. Urinalysis revealed 1+ blood, negative leukocyte esterase, and trace white blood cells, and no bacteria. Chest x-ray reveals chronic emphysematous changes and borderline cardiomegaly. IMPRESSION AND PLAN: Impression is that of much improved encephalopathy. He had an EEG monitoring over the night and it revealed diffuse slowing as well as some focal slowing from the right hemisphere, which abruptly stops, suggesting a possible ictal pattern. Currently, there is no evidence that he is having seizures and I think we will continue to hold off on anticonvulsants and follow up clinically. Cause of his infection is not certain at this point, but he is being covered for Clostridium difficile. I will continue to follow. [id number]/[facility] #: [id number] [place]
[2016-12-30] MEDS: Atorvastatin* 10 MG TAB PO SCH (21:39)
[2016-12-31] MEDS: ZOSYN 3.375 GM Q8H per EXTENDED INFUSION IVPB SCH ×8 (02:14→16:56)
[2016-12-31] MEDS: NS 0.9% 1000 ML* 1,000 ML IV SCH ×3 (04:32→22:19)
[2016-12-31] MEDS: Aspirin Low Dose CHEW TAB* 81 MG PO SCH (09:12)
[2016-12-31] MEDS: Omeprazole CAP* 20 MG PO SCH (09:12)
[2016-12-31] MEDS: Carvedilol TAB* 3.125 MG PO SCH ×2 (09:12→22:20)
[2016-12-31] MEDS: Lisinopril TAB* 5 MG PO SCH (09:12)
[2016-12-31] MEDS: Sertraline* 50 MG TAB PO SCH (09:12)
[2016-12-31 09:15] LABS: Hematocrit 30 % (42-52); Hemoglobin 9.9 g/dl (14.0-18.0); Mean Corpuscular HGB Conc 34 g/dl (31-36); Mean Corpuscular Hemoglobin 30 pg (27-31); Mean Corpuscular Volume 89 fL (80-94); Mean Platelet Volume 10 um3 (7.4-10.4); Red Blood Count 3.33 10^6/ul (4.0-5.4); Red Cell Distribution Width 19 % (10.5-15); White Blood Count 6.6 10^3/ul (3.5-10.8)
[2016-12-31 09:17] LABS: Comments Flag Yes
[2016-12-31 09:29] LABS: BUN/Creatinine Ratio 18.8 (8-20); Calcium 9.2 mg/dL (8.6-10.3); EGFR African American 120.2 (>60); EGFR Non-African American 93.5 (>60); Potassium 3.8 mmol/L (3.5-5.0)
[2016-12-31] MEDS: Warfarin TAB(*) 5 MG PO SCH (17:00)
--- NOTE | 2016-12-31 21:06 | PN ---
Subjective Date of Service: 12/31/16 Interval History: Marked reduction in leukocytosis, Pt with temp 100.4 at 4am. No source of infection identified yet. Still depressed. Weak. Had BM (was soft), Cdiff negative. Objective Active Medications: Acetaminophen (Tylenol Tab*) 650 mg PO Q4H PRN PRN Reason: PAIN Aspirin (Aspirin Low Dose Tab*) 81 mg PO DAILY [facility] Last Admin: 12/31/16 09:12 Dose: 81 mg Atorvastatin Calcium (Lipitor*) 10 mg PO 2100 [facility] Last Admin: 12/30/16 21:39 Dose: 10 mg Carvedilol (Coreg Tab*) 1.5625 mg PO BID [facility] Last Admin: 12/31/16 09:12 Dose: 1.5625 mg Sodium Chloride (Ns 0.9% 1000 Ml*) 1,000 mls @ 125 mls/hr IV PER RATE [facility] Last Admin: 12/31/16 14:17 Dose: 125 mls/hr Piperacillin Sod/Tazobactam (Sod 3.375 gm/ Sodium Chloride) 100 mls @ 25 mls/ hr IVPB 0130,0930,1730 [facility] Last Admin: 12/31/16 16:56 Dose: 25 mls/hr Lisinopril (Prinivil Tab*) 2.5 mg PO DAILY [facility] Last Admin: 12/31/16 09:12 Dose: 2.5 mg Omeprazole (Prilosec Cap*) 20 mg PO DAILY [facility] Last Admin: 12/31/16 09:12 Dose: 20 mg Pharmacy Consult (Zosyn Per Pharmacy*) 1 note FOLLOW UP .ZOSYN PER PHARMACY [facility] Sertraline HCl (Zoloft*) 150 mg PO DAILY [facility] Last Admin: 12/31/16 09:12 Dose: 150 mg Warfarin Sodium (Coumadin Tab(*)) 2.5 mg PO SuTuThSa@1700 [facility] PRN Reason: Protocol Last Admin: 12/30/16 18:20 Dose: 2.5 mg Warfarin Sodium (Coumadin Tab(*)) 5 mg PO MoWeFr@1700 [facility] PRN Reason: Protocol Last Admin: 12/31/16 17:00 Dose: 5 mg Vital Signs 12/31/16 12/31/16 12/31/16 00:12 04:28 07:42 Temperature 99.0 F 100.4 F 99.9 F Pulse Rate 82 81 82 Respiratory 16 16 20 Rate Blood Pressure 126/64 139/49 135/75 (mmHg) O2 Sat by Pulse 97 98 94 Oximetry 12/31/16 12/31/16 12/31/16 08:00 11:25 15:38 Temperature 99.1 F 98.9 F Pulse Rate 84 82 Respiratory 16 24 17 Rate Blood Pressure 145/71 154/73 (mmHg) O2 Sat by Pulse 94 98 99 Oximetry Oxygen Devices in Use Now: None Appearance: NAD. depressed affect. Struggles to turn in bed (and ultimately unable to do so. Eyes: No Scleral Icterus, PERRLA Ears/Nose/Mouth/Throat: NL Teeth, Lips, Gums, Mucous Membranes Moist Neck: NL Appearance and Movements; NL JVP Respiratory: Symmetrical Chest Expansion and Respiratory Effort, Clear to Auscultation Cardiovascular: NL Sounds; No Murmurs; No JVD, RRR Abdominal: NL Sounds; No Tenderness; No Distention Extremities: No Edema, No Clubbing, Cyanosis Skin: No Rash or Ulcers, No Nodules or Sclerosis Neurological: Alert and Oriented x 3, - - left sided weakness in UE and LE Result Diagrams: 12/31/16 09:05 12/31/16 09:05 Additional Lab and Data: Laboratory Results - last 24 hr 12/29/16 12/31/16 12/31/16 18:45 09:05 09:05 WBC 6.6 RBC 3.33 L Hgb 9.9 L Hct 30 L MCV 89 MCH 30 MCHC 34 RDW 19 H Plt Count 58 L MPV 10 Neut % (Auto) 79.8 Lymph % (Auto) 14.9 L Imperial % (Auto) 4.7 Eos % (Auto) 0.3 Baso % (Auto) 0.3 Absolute Neuts (auto) 5.3 Absolute Lymphs (auto) 1.0 Absolute Monos (auto) 0.3 Absolute Eos (auto) 0 Absolute Basos (auto) 0 Absolute Nucleated RBC 0 Nucleated RBC % 0.1 Sodium 135 Potassium 3.8 Chloride 102 Carbon Dioxide 28 Anion Gap 5 BUN 15 Creatinine 0.80 Est GFR ( Amer) 120.2 Est GFR (Non-Af Amer) 93.5 BUN/Creatinine Ratio 18.8 Glucose 111 H Calcium 9.2 Antibody Identification Anti-K Microbiology and Other Data: Microbiology 12/31/16 11:27 Stool Stool Gross Appearance - Final 12/31/16 11:27 Stool C. difficile DNA Amplification - Final 027 Presumptive NEGATIVE Toxigenic C.diff NEGATIVE 12/29/16 23:00 Urine Urine Culture - Final No Growth (<1,000 CFU/mL) 12/29/16 22:15 Blood Venous Aerobic Blood Culture - Preliminary No Growth Day 1 12/29/16 22:15 Blood Venous Anaerobic Blood Culture - Preliminary No Growth Day 1 12/29/16 21:00 Blood Venous Aerobic Blood Culture - Preliminary No Growth Day 1 12/29/16 21:00 Blood Venous Anaerobic Blood Culture - Preliminary No Growth Day 1 Assess/Plan/Problems-Billing Assessment: 76 yo male PMH CABG, ICM, myelodysplasia on MWF neupogen (and recently transfusion dependant), 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 Profound leukocytosis (now resolved). On zosyn for suspected aspiration. - Patient Problems (1) Fever Current Visit: Yes Status: Acute Code(s): R50.9 - FEVER, UNSPECIFIED SNOMED Code(s): 530072026 Comment: Bandemia + significant Leukocytosis(now resolved). Unclear source but aspiration most likely UA negative. Blood Cultures NTD Cdiff negative continue zosyn. Possible transition to augmentin on d/c Thoracic spine MRI w/o e/o abscess. (2) Myelodysplastic disease Current Visit: No Status: Chronic Priority: High Onset Date: 10/14/14 Code(s): C94.6 - MYELODYSPLASTIC DISEASE, NOT CLASSIFIED SNOMED Code(s): 981753804 Comment: - Treated with Neupogen MWF as oupatient. was holding in setting of profound leukocytosis and bandemia. (3) Vomiting Current Visit: Yes Status: Acute Code(s): R11.10 - VOMITING, UNSPECIFIED SNOMED Code(s): 797455688 Comment: resolved. passed bedside swallow (4) Frequent bowel movements Current Visit: Yes Status: Acute Code(s): R19.4 - CHANGE IN BOWEL HABIT SNOMED Code(s): 070866797 Comment: but none here. Cdiff negative. Per history more constipation like concerns chronically (5) CVA (cerebral infarction) Current Visit: No Status: Chronic Priority: High Onset Date: 10/31/13 Code(s): I63.9 - CEREBRAL INFARCTION, UNSPECIFIED SNOMED Code(s): 352303765 Comment: continue aspirin, coumadin left side hemiparesis appreciate Neurology recs. s/p code zuñiga in ED with UR evaluation. Physical Therapy ordered and I suspect will need subacute rehab (6) Hypertension Current Visit: No Status: Chronic Priority: Medium Code(s): I10 - ESSENTIAL (PRIMARY) HYPERTENSION SNOMED Code(s): 25852076 Comment: - Continue Carvedilol 1.5625mg bid - Lisinopril 2.5mg daily (7) Twitching Current Visit: Yes Status: Acute Code(s): R25.3 - FASCICULATION SNOMED Code(s): 338012768 Comment: has not returned. appreciate Neuology recs EEG with possible post-ictal pattern with abrupt stop but no recommendation start an antiepileptic. Status and Disposition: medicine inpatient, likely will need acute rehab. Attending: Dread Aviles
[2016-12-31] MEDS: Atorvastatin* 10 MG TAB PO SCH (22:20)
[2017-01-01] MEDS: ZOSYN 3.375 GM Q8H per EXTENDED INFUSION IVPB SCH ×6 (01:26→17:28)
[2017-01-01 10:02] LABS: Comments Flag Yes; Hematocrit 35 % (42-52); Hemoglobin 11.7 g/dl (14.0-18.0); Mean Corpuscular HGB Conc 34 g/dl (31-36); Mean Corpuscular Hemoglobin 30 pg (27-31); Mean Corpuscular Volume 88 fL (80-94); Mean Platelet Volume 10 um3 (7.4-10.4); Red Blood Count 3.92 10^6/ul (4.0-5.4); Red Cell Distribution Width 18 % (10.5-15); White Blood Count 3.8 10^3/ul (3.5-10.8)
[2017-01-01] MEDS: Lisinopril TAB* 5 MG PO SCH (10:10)
[2017-01-01] MEDS: Aspirin Low Dose CHEW TAB* 81 MG PO SCH (10:10)
[2017-01-01] MEDS: Omeprazole CAP* 20 MG PO SCH (10:10)
[2017-01-01] MEDS: Carvedilol TAB* 3.125 MG PO SCH ×2 (10:10→20:33)
[2017-01-01 10:14] LABS: BUN/Creatinine Ratio 15.5 (8-20); Calcium 9.9 mg/dL (8.6-10.3); EGFR Non-African American 107.3 (>60)
[2017-01-01] MEDS: Sertraline* 50 MG TAB PO SCH (10:40)
[2017-01-01] MEDS: NS 0.9% 1000 ML* 1,000 ML IV SCH (15:19)
--- NOTE | 2017-01-01 17:07 | PN ---
Subjective Date of Service: 01/01/17 Interval History: [place] at bedside and reports patient not fully oriented (inferring that he was at home) but later was oriented x4. Tmax 100.5 at midnight. Pt getting up to 2 person assist at [facility] with transfers per , though staffing levels don't always allow this so stays in room sometimes. PLT improved. WBC to 3.3. Gets outpatient PT at [place] twice a week. Still depressed about CVA residual deficits. no cultures positive. Objective Active Medications: Acetaminophen (Tylenol Tab*) 650 mg PO Q4H PRN PRN Reason: PAIN Aspirin (Aspirin Low Dose Tab*) 81 mg PO DAILY [facility] Last Admin: 01/01/17 10:10 Dose: 81 mg Atorvastatin Calcium (Lipitor*) 10 mg PO 2100 [facility] Last Admin: 12/31/16 22:20 Dose: 10 mg Carvedilol (Coreg Tab*) 1.5625 mg PO BID [facility] Last Admin: 01/01/17 10:10 Dose: 1.5625 mg Sodium Chloride (Ns 0.9% 1000 Ml*) 1,000 mls @ 125 mls/hr IV PER RATE [facility] Last Admin: 01/01/17 15:19 Dose: 125 mls/hr Piperacillin Sod/Tazobactam (Sod 3.375 gm/ Sodium Chloride) 100 mls @ 25 mls/ hr IVPB 0130,0930,1730 [facility] Last Admin: 01/01/17 10:11 Dose: 25 mls/hr Lisinopril (Prinivil Tab*) 2.5 mg PO DAILY [facility] Last Admin: 01/01/17 10:10 Dose: 2.5 mg Omeprazole (Prilosec Cap*) 20 mg PO DAILY [facility] Last Admin: 01/01/17 10:10 Dose: 20 mg Pharmacy Consult (Zosyn Per Pharmacy*) 1 note FOLLOW UP .ZOSYN PER PHARMACY [facility] Sertraline HCl (Zoloft*) 150 mg PO DAILY [facility] Last Admin: 01/01/17 10:40 Dose: 150 mg Warfarin Sodium (Coumadin Tab(*)) 2.5 mg PO SuTuThSa@1700 [facility] PRN Reason: Protocol Last Admin: 12/30/16 18:20 Dose: 2.5 mg Warfarin Sodium (Coumadin Tab(*)) 5 mg PO MoWeFr@1700 [facility] PRN Reason: Protocol Last Admin: 12/31/16 17:00 Dose: 5 mg Vital Signs 12/31/16 12/31/16 01/01/17 19:30 20:00 00:29 Temperature 99.0 F 100.5 F Pulse Rate 81 85 Respiratory 16 20 16 Rate Blood Pressure 143/71 158/80 (mmHg) O2 Sat by Pulse 96 99 99 Oximetry 01/01/17 01/01/17 01/01/17 01:34 03:33 07:52 Temperature 98.5 F 98.4 F 99.8 F Pulse Rate 82 88 Respiratory 16 20 Rate Blood Pressure 153/73 144/75 (mmHg) O2 Sat by Pulse 97 98 Oximetry 01/01/17 01/01/17 08:00 11:23 Temperature 98.4 F Pulse Rate 88 Respiratory 20 24 Rate Blood Pressure 117/64 (mmHg) O2 Sat by Pulse 98 98 Oximetry Oxygen Devices in Use Now: None Appearance: Chronically ill appearing. NAD Eyes: No Scleral Icterus Ears/Nose/Mouth/Throat: NL Teeth, Lips, Gums, Mucous Membranes Moist Neck: NL Appearance and Movements; NL JVP Respiratory: Symmetrical Chest Expansion and Respiratory Effort, Clear to Auscultation Cardiovascular: NL Sounds; No Murmurs; No JVD, RRR Abdominal: NL Sounds; No Tenderness; No Distention, No Hepatosplenomegaly Extremities: No Edema Skin: No Rash or Ulcers, No Nodules or Sclerosis Neurological: Alert and Oriented x 3, - - left side much weaker than right. Unchanged. left sided vision loss in both eyes. Result Diagrams: 01/01/17 09:48 01/01/17 09:48 Additional Lab and Data: Laboratory Results - last 24 hr 01/01/17 01/01/17 09:48 09:48 WBC 3.8 RBC 3.92 L Hgb 11.7 L Hct 35 L MCV 88 MCH 30 MCHC 34 RDW 18 H Plt Count 73 L MPV 10 Neut % (Auto) 57.6 Lymph % (Auto) 33.5 Sully % (Auto) 7.9 Eos % (Auto) 0.5 Baso % (Auto) 0.5 Absolute Neuts (auto) 2.2 Absolute Lymphs (auto) 1.3 Absolute Monos (auto) 0.3 Absolute Eos (auto) 0 Absolute Basos (auto) 0 Absolute Nucleated RBC 0 Nucleated RBC % 0.1 Sodium 130 L Potassium 4.0 Chloride 96 L Carbon Dioxide 27 Anion Gap 7 BUN 11 Creatinine 0.71 Est GFR ( Amer) 138.0 Est GFR (Non-Af Amer) 107.3 BUN/Creatinine Ratio 15.5 Glucose 120 H Calcium 9.9 Microbiology and Other Data: Microbiology 12/29/16 22:15 Blood Venous Aerobic Blood Culture - Preliminary No Growth Day 2 12/29/16 22:15 Blood Venous Anaerobic Blood Culture - Preliminary No Growth Day 2 12/29/16 21:00 Blood Venous Aerobic Blood Culture - Preliminary No Growth Day 2 12/29/16 21:00 Blood Venous Anaerobic Blood Culture - Preliminary No Growth Day 2 12/31/16 11:27 Stool Stool Gross Appearance - Final 12/31/16 11:27 Stool C. 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 Profound leukocytosis (now resolved). On zosyn for suspected aspiration. - Patient Problems (1) Fever Current Visit: Yes Status: Acute Code(s): R50.9 - FEVER, UNSPECIFIED SNOMED Code(s): 699023838 Comment: Bandemia + significant Leukocytosis(now resolved). Unclear source but aspiration most likely after violent vomiting. Possible viral gastroenteritis precipitant? UA negative. Blood Cultures NTD Cdiff negative continue zosyn. Possible transition to augmentin on d/c Thoracic spine MRI w/o e/o abscess. (2) Myelodysplastic disease Current Visit: No Status: Chronic Priority: High Onset Date: 10/14/14 Code(s): C94.6 - MYELODYSPLASTIC DISEASE, NOT CLASSIFIED SNOMED Code(s): 887169648 Comment: - Treated with Neupogen MWF as oupatient. (3) Vomiting Current Visit: Yes Status: Acute Code(s): R11.10 - VOMITING, UNSPECIFIED SNOMED Code(s): 920741832 Comment: resolved. passed bedside swallow (4) Frequent bowel movements Current Visit: Yes Status: Acute Code(s): R19.4 - CHANGE IN BOWEL HABIT SNOMED Code(s): 685961094 Comment: Cdiff negative. Per history more constipation concerns chronically (5) CVA (cerebral infarction) Current Visit: No Status: Chronic Priority: High Onset Date: 10/31/13 Code(s): I63.9 - CEREBRAL INFARCTION, UNSPECIFIED SNOMED Code(s): 295502808 Comment: continue aspirin, coumadin left side hemiparesis appreciate Neurology recs. s/p code zuñiga in ED with UR evaluation. continue Physical Therapy per pt was painting a jessica picture of his independance and was actually requiring 2 person assist at [facility]. (6) Hypertension Current Visit: No Status: Chronic Priority: Medium Code(s): I10 - ESSENTIAL (PRIMARY) HYPERTENSION SNOMED Code(s): 89457137 Comment: - Continue Carvedilol 1.5625mg bid - Lisinopril 2.5mg daily (7) Twitching Current Visit: Yes Status: Acute Code(s): R25.3 - FASCICULATION SNOMED Code(s): 064055748 Comment: has not returned. appreciate Neuology recs EEG with possible post-ictal pattern with abrupt stop but no recommendation start an antiepileptic. Status and Disposition: medicine inpatient, still with fevers, May need acute rehab. Attending: Dread Aviles
[2017-01-01] MEDS: Warfarin TAB(*) 2.5 MG PO SCH (17:28)
[2017-01-01] MEDS: Acetaminophen TAB* 325 MG PO PRN (18:44)
[2017-01-01] MEDS: Atorvastatin* 10 MG TAB PO SCH (20:33)
[2017-01-02] MEDS: ZOSYN 3.375 GM Q8H per EXTENDED INFUSION IVPB SCH ×6 (01:18→17:54)
[2017-01-02] MEDS: Omeprazole CAP* 20 MG PO SCH (09:24)
[2017-01-02] MEDS: Sertraline* 50 MG TAB PO SCH (09:24)
[2017-01-02] MEDS: Lisinopril TAB* 5 MG PO SCH (09:24)
[2017-01-02] MEDS: Aspirin Low Dose CHEW TAB* 81 MG PO SCH (09:24)
[2017-01-02] MEDS: Carvedilol TAB* 3.125 MG PO SCH ×2 (09:25→20:19)
[2017-01-02] MEDS: Acetaminophen TAB* 325 MG PO PRN (09:26)
[2017-01-02 09:58] LABS: Hematocrit 31 % (42-52); Hemoglobin 10.6 g/dl (14.0-18.0); Mean Corpuscular HGB Conc 35 g/dl (31-36); Mean Corpuscular Hemoglobin 30 pg (27-31); Mean Corpuscular Volume 87 fL (80-94); Mean Platelet Volume 10 um3 (7.4-10.4); Red Blood Count 3.51 10^6/ul (4.0-5.4); Red Cell Distribution Width 18 % (10.5-15); White Blood Count 3.2 10^3/ul (3.5-10.8)
[2017-01-02 09:59] LABS: Add Diff/Slide Review? Slide Review Added; Comments Flag Yes
[2017-01-02 10:10] LABS: BUN/Creatinine Ratio 16.2 (8-20); Calcium 9.2 mg/dL (8.6-10.3); EGFR African American 131.6 (>60); EGFR Non-African American 102.3 (>60); Potassium 3.6 mmol/L (3.5-5.0)
--- NOTE | 2017-01-02 13:48 | RAD ---
INDICATION: Recurrent fevers and altered mental status COMPARISON: Most recent comparison chest x-rays dated December 29, 2016 TECHNIQUE: Single AP portable view of the chest was obtained. FINDINGS: Image quality is compromised due to the relative inferiority of a portable chest x-ray. Stable postsurgical findings include sternotomy wires. Again seen is a mild degree of cardiomegaly unchanged from the prior chest x-ray. The degree of vascular congestion seen on the prior chest x-ray has improved on today's chest x-ray. Overall the aeration is improved as well. Visualized bones are normal for the patient's age. IMPRESSION: No radiographic evidence for acute cardiopulmonary abnormality on this portable chest x-ray. Overall there has been interval improved aeration relative to the prior chest x-ray.
[2017-01-02 15:33] LABS: Erythrocyte Sed Rate 54 mm/Hr (0-40)
--- NOTE | 2017-01-02 16:10 | PN ---
Subjective Date of Service: 01/02/17 Interval History: Fever 100.3 7am, 100.5 yesterday 18:30. Feeling well today. Denies SOB, HERNÁNDEZ, coughing, HERN[place]NDEZ, dysuria, joint pains, diarrhea. Objective Active Medications: Acetaminophen (Tylenol Tab*) 650 mg PO Q4H PRN PRN Reason: PAIN Last Admin: 01/02/17 09:26 Dose: 650 mg Aspirin (Aspirin Low Dose Tab*) 81 mg PO DAILY [facility] Last Admin: 01/02/17 09:24 Dose: 81 mg Atorvastatin Calcium (Lipitor*) 10 mg PO 2100 [facility] Last Admin: 01/01/17 20:33 Dose: 10 mg Carvedilol (Coreg Tab*) 1.5625 mg PO BID [facility] Last Admin: 01/02/17 09:25 Dose: 1.5625 mg Sodium Chloride (Ns 0.9% 1000 Ml*) 1,000 mls @ 125 mls/hr IV PER RATE [facility] Last Admin: 01/01/17 15:19 Dose: 125 mls/hr Piperacillin Sod/Tazobactam (Sod 3.375 gm/ Sodium Chloride) 100 mls @ 25 mls/ hr IVPB 0130,0930,1730 [facility] Last Admin: 01/02/17 09:28 Dose: 25 mls/hr Lisinopril (Prinivil Tab*) 2.5 mg PO DAILY [facility] Last Admin: 01/02/17 09:24 Dose: 2.5 mg Omeprazole (Prilosec Cap*) 20 mg PO DAILY [facility] Last Admin: 01/02/17 09:24 Dose: 20 mg Pharmacy Consult (Zosyn Per Pharmacy*) 1 note FOLLOW UP .ZOSYN PER PHARMACY [facility] Sertraline HCl (Zoloft*) 150 mg PO DAILY [facility] Last Admin: 01/02/17 09:24 Dose: 150 mg Warfarin Sodium (Coumadin Tab(*)) 2.5 mg PO SuTuThSa@1700 [facility] PRN Reason: Protocol Last Admin: 01/01/17 17:28 Dose: 2.5 mg Warfarin Sodium (Coumadin Tab(*)) 5 mg PO MoWeFr@1700 [facility] PRN Reason: Protocol Last Admin: 12/31/16 17:00 Dose: 5 mg Vital Signs 01/01/17 01/01/17 01/01/17 18:30 20:00 20:03 Temperature 100.5 F 99.4 F Pulse Rate 89 Respiratory 18 20 Rate Blood Pressure 128/49 (mmHg) O2 Sat by Pulse 94 92 Oximetry 01/01/17 01/02/17 01/02/17 23:29 03:19 07:36 Temperature 98.2 F 99.8 F 100.3 F Pulse Rate 77 83 85 Respiratory 18 22 24 Rate Blood Pressure 128/59 139/70 147/71 (mmHg) O2 Sat by Pulse 93 95 95 Oximetry 01/02/17 01/02/17 08:00 11:15 Temperature 99.8 F Pulse Rate 78 Respiratory 20 20 Rate Blood Pressure 110/49 (mmHg) O2 Sat by Pulse 95 94 Oximetry Oxygen Devices in Use Now: None Appearance: NAD, seems in better spirits. Eyes: No Scleral Icterus, PERRLA Ears/Nose/Mouth/Throat: NL Teeth, Lips, Gums, Mucous Membranes Moist Neck: NL Appearance and Movements; NL JVP, Trachea Midline Respiratory: Symmetrical Chest Expansion and Respiratory Effort, Clear to Auscultation Cardiovascular: NL Sounds; No Murmurs; No JVD, RRR Abdominal: NL Sounds; No Tenderness; No Distention, No Hepatosplenomegaly Extremities: No Edema, No Clubbing, Cyanosis Skin: No Rash or Ulcers, No Nodules or Sclerosis Neurological: Alert and Oriented x 3, - - left sided weakness, stable. Nutrition: Taking PO's Result Diagrams: 01/02/17 09:39 01/02/17 09:38 Additional Lab and Data: Laboratory Results - last 24 hr 01/02/17 01/02/17 01/02/17 09:38 09:39 13:58 WBC 3.2 L RBC 3.51 L Hgb 10.6 L Hct 31 L MCV 87 MCH 30 MCHC 35 RDW 18 H Plt Count 70 L MPV 10 Neut % (Auto) 58.1 Lymph % (Auto) 32.4 [place]ern % (Auto) 8.2 Eos % (Auto) 0.6 Baso % (Auto) 0.7 Absolute Neuts (auto) 1.9 Absolute Lymphs (auto) 1.0 Absolute Monos (auto) 0.3 Absolute Eos (auto) 0 Absolute Basos (auto) 0 Absolute Nucleated RBC 0 Nucleated RBC % 0.1 ESR 54 H Sodium 133 Potassium 3.6 Chloride 102 Carbon Dioxide 25 Anion Gap 6 BUN 12 Creatinine 0.74 Est GFR ( Amer) 131.6 Est GFR (Non-Af Amer) 102.3 BUN/Creatinine Ratio 16.2 Glucose 137 H Calcium 9.2 Procalcitonin < 0.1 Microbiology and Other Data: Microbiology 12/31/16 11:27 Stool Stool Culture - Final 12/31/16 11:27 Stool Stool Gross Appearance - Final 12/31/16 11:27 Stool C. difficile DNA Amplification - Final 027 Presumptive NEGATIVE Toxigenic C.diff NEGATIVE 12/29/16 22:15 Blood Venous Aerobic Blood Culture - Preliminary No Growth Day 3 12/29/16 22:15 Blood Venous Anaerobic Blood Culture - Preliminary No Growth Day 3 12/29/16 21:00 Blood Venous Aerobic Blood Culture - Preliminary No Growth Day 3 12/29/16 21:00 Blood Venous Anaerobic Blood Culture - Preliminary No Growth Day 3 12/29/16 23:00 Urine Urine Culture - Final No Growth (<1,000 CFU/mL) Assess/Plan/Problems-Billing Assessment: 76 yo male PMH CABG, ICM, myelodysplasia on MWF neupogen (and recently transfusion dependant), multiple CVAs with left sided hemiparesis (on coumadin) , lytic lesions, p/w vomiting, high fevers, frequent but hard stools, twitching movements and flaccid left side (at baseline has needed 2 person assist). Profound leukocytosis (though with recent neupogen, now resolved). On zosyn for suspected aspiration. Continues to have fevers. - Patient Problems (1) Fever Current Visit: Yes Status: Acute Code(s): R50.9 - FEVER, UNSPECIFIED SNOMED Code(s): 725173534 Comment: Initially Bandemia + significant Leukocytosis(now resolved and was in setting of also getting his home neupogen). Unclear source but aspiration was thought most likely after violent vomiting. Possible viral gastroenteritis precipitant? However fevers have remained recurrent despite not day 4 zosyn and day 5 abx. Repeated BCx 01/02. Repeat CXR w/o infiltrate. Procalcitonin negative. FUO ?hematological UA negative. Blood Cultures NGTD Cdiff negative continue zosyn. Possible transition to augmentin on d/c Thoracic spine MRI w/o e/o abscess. (2) Myelodysplastic disease Current Visit: No Status: Chronic Priority: High Onset Date: 10/14/14 Code(s): C94.6 - MYELODYSPLASTIC DISEASE, NOT CLASSIFIED SNOMED Code(s): 223931275 Comment: - Treated with Neupogen MWF as oupatient. given lytic lesions seen on imaging have added beta 2 microglobulin. No protein gap or proteinuria. (3) Vomiting Current Visit: Yes Status: Acute Code(s): R11.10 - VOMITING, UNSPECIFIED SNOMED Code(s): 537176101 Comment: resolved. passed bedside swallow (4) Frequent bowel movements Current Visit: Yes Status: Acute Code(s): R19.4 - CHANGE IN BOWEL HABIT SNOMED Code(s): 548283048 Comment: Cdiff negative. Per history more constipation concerns chronically (5) CVA (cerebral infarction) Current Visit: No Status: Chronic Priority: High Onset Date: 10/31/13 Code(s): I63.9 - CEREBRAL INFARCTION, UNSPECIFIED SNOMED Code(s): 306709048 Comment: continue aspirin, coumadin left side hemiparesis appreciate Neurology recs. s/p code zuñiga in ED with UR evaluation. continue Physical Therapy per pt was painting a jessica picture of his independance and was actually requiring 2 person assist at [facility]. (6) Hypertension Current Visit: No Status: Chronic Priority: Medium Code(s): I10 - ESSENTIAL (PRIMARY) HYPERTENSION SNOMED Code(s): 28473753 Comment: - Continue Carvedilol 1.5625mg bid - Lisinopril 2.5mg daily (7) Twitching Current Visit: Yes Status: Acute Code(s): R25.3 - FASCICULATION SNOMED Code(s): 529137959 Comment: has not returned. appreciate Neuology recs EEG with possible post-ictal pattern with abrupt stop but no recommendation start an antiepileptic. Status and Disposition: medicine inpatient, still with fevers, May need acute rehab or at least home VNS /PT. Attending: Dread Aviles
[2017-01-02] MEDS: NS 0.9% 1000 ML* 1,000 ML IV SCH (17:54)
[2017-01-02] MEDS: Warfarin TAB(*) 2.5 MG PO SCH (17:54)
[2017-01-02] MEDS: Atorvastatin* 10 MG TAB PO SCH (20:20)
[2017-01-02] MEDS: Nystatin TOP POWDER* 15 GM BTL TOPICAL SCH (22:46)
[2017-01-03] MEDS: ZOSYN 3.375 GM Q8H per EXTENDED INFUSION IVPB SCH ×6 (01:40→16:28)
[2017-01-03] MEDS: Sertraline* 50 MG TAB PO SCH (09:59)
[2017-01-03] MEDS: Aspirin Low Dose CHEW TAB* 81 MG PO SCH (09:59)
[2017-01-03] MEDS: Omeprazole CAP* 20 MG PO SCH (09:59)
[2017-01-03] MEDS: Carvedilol TAB* 3.125 MG PO SCH ×2 (10:01→21:02)
[2017-01-03] MEDS: Lisinopril TAB* 5 MG PO SCH (10:01)
[2017-01-03] MEDS: Nystatin TOP POWDER* 15 GM BTL TOPICAL SCH ×2 (10:02→20:02)
[2017-01-03 10:56] LABS: Hematocrit 29 % (42-52); Hemoglobin 9.9 g/dl (14.0-18.0); Mean Corpuscular HGB Conc 34 g/dl (31-36); Mean Corpuscular Hemoglobin 30 pg (27-31); Mean Corpuscular Volume 89 fL (80-94); Mean Platelet Volume 11 um3 (7.4-10.4); Red Blood Count 3.26 10^6/ul (4.0-5.4); Red Cell Distribution Width 18 % (10.5-15); White Blood Count 4.2 10^3/ul (3.5-10.8)
[2017-01-03 10:57] LABS: Comments Flag Yes
[2017-01-03 11:06] LABS: BUN/Creatinine Ratio 16.5 (8-20); Calcium 8.9 mg/dL (8.6-10.3); EGFR Non-African American 94.9 (>60); Potassium 3.7 mmol/L (3.5-5.0)
[2017-01-03] MEDS: Warfarin TAB(*) 5 MG PO SCH (16:28)
[2017-01-03] MEDS: NS 0.9% 1000 ML* 1,000 ML IV SCH (16:28)
--- NOTE | 2017-01-03 16:29 | PN ---
Subjective Date of Service: 01/03/17 Interval History: Fever to 100.0 at 3am. Rn concerned that patient ignoring her when compulsively eating cheerios and would not stop upon request. Later had to be reminded to swallow food. Pt later relates he really liked his cheerios, took under advisement the request and ignored. Passed STOP ATTACHER eval but no straws. will reassess tomorrow. concerned not getting enough sleep. repeat Bcx negative. Objective Active Medications: Acetaminophen (Tylenol Tab*) 650 mg PO Q4H PRN PRN Reason: PAIN Last Admin: 01/02/17 09:26 Dose: 650 mg Aspirin (Aspirin Low Dose Tab*) 81 mg PO DAILY [facility] Last Admin: 01/03/17 09:59 Dose: 81 mg Atorvastatin Calcium (Lipitor*) 10 mg PO 2100 [facility] Last Admin: 01/02/17 20:20 Dose: 10 mg Carvedilol (Coreg Tab*) 1.5625 mg PO BID [facility] Last Admin: 01/03/17 10:01 Dose: 1.5625 mg Sodium Chloride (Ns 0.9% 1000 Ml*) 1,000 mls @ 125 mls/hr IV PER RATE [facility] Last Admin: 01/02/17 17:54 Dose: 125 mls/hr Piperacillin Sod/Tazobactam (Sod 3.375 gm/ Sodium Chloride) 100 mls @ 25 mls/ hr IVPB 0130,0930,1730 [facility] Last Admin: 01/03/17 10:02 Dose: 25 mls/hr Lisinopril (Prinivil Tab*) 2.5 mg PO DAILY [facility] Last Admin: 01/03/17 10:01 Dose: 2.5 mg Nystatin (Nystatin Top Powder*) 1 applic TOPICAL BID [facility] Last Admin: 01/03/17 10:02 Dose: 1 applic Omeprazole (Prilosec Cap*) 20 mg PO DAILY [facility] Last Admin: 01/03/17 09:59 Dose: 20 mg Pharmacy Consult (Zosyn Per Pharmacy*) 1 note FOLLOW UP .ZOSYN PER PHARMACY [facility] Sertraline HCl (Zoloft*) 150 mg PO DAILY [facility] Last Admin: 01/03/17 09:59 Dose: 150 mg Warfarin Sodium (Coumadin Tab(*)) 2.5 mg PO SuTuThSa@1700 [facility] PRN Reason: Protocol Last Admin: 01/02/17 17:54 Dose: 2.5 mg Warfarin Sodium (Coumadin Tab(*)) 5 mg PO MoWeFr@1700 [facility] PRN Reason: Protocol Last Admin: 12/31/16 17:00 Dose: 5 mg Vital Signs 01/02/17 01/02/17 01/02/17 20:00 20:04 23:27 Temperature 99.8 F 99.3 F Pulse Rate 84 91 Respiratory 18 18 20 Rate Blood Pressure 133/69 138/71 (mmHg) O2 Sat by Pulse 95 95 96 Oximetry 01/03/17 01/03/17 01/03/17 03:11 07:37 08:00 Temperature 100.0 F 98.8 F Pulse Rate 89 84 Respiratory 18 20 16 Rate Blood Pressure 129/63 148/78 (mmHg) O2 Sat by Pulse 94 99 96 Oximetry 01/03/17 11:20 Temperature 98.3 F Pulse Rate 85 Respiratory 20 Rate Blood Pressure 124/55 (mmHg) O2 Sat by Pulse 98 Oximetry Oxygen Devices in Use Now: None Appearance: NAD. Eyes: No Scleral Icterus, PERRLA Ears/Nose/Mouth/Throat: NL Teeth, Lips, Gums Neck: NL Appearance and Movements; NL JVP, Trachea Midline Respiratory: Symmetrical Chest Expansion and Respiratory Effort, Clear to Auscultation Cardiovascular: NL Sounds; No Murmurs; No JVD, RRR Abdominal: NL Sounds; No Tenderness; No Distention, No Hepatosplenomegaly Extremities: No Edema, No Clubbing, Cyanosis Skin: No Rash or Ulcers, No Nodules or Sclerosis Neurological: - - Oriented, left vision cuts stable, left sided weakness. Reflective vs slowed in responses Result Diagrams: 01/03/17 04:29 01/03/17 04:29 Additional Lab and Data: Laboratory Results - last 24 hr 12/29/16 01/03/17 01/03/17 18:45 04:29 04:29 WBC 4.2 RBC 3.26 L Hgb 9.9 L Hct 29 L MCV 89 MCH 30 MCHC 34 RDW 18 H Plt Count 63 L MPV 11 H Neut % (Auto) 62.8 Lymph % (Auto) 27.0 [place] % (Auto) 8.4 Eos % (Auto) 0.7 Baso % (Auto) 1.1 Absolute Neuts (auto) 2.6 Absolute Lymphs (auto) 1.1 Absolute Monos (auto) 0.3 Absolute Eos (auto) 0 Absolute Basos (auto) 0 Absolute Nucleated RBC 0 Nucleated RBC % 0 INR (Anticoag Therapy) Sodium 131 L Potassium 3.7 Chloride 100 L Carbon Dioxide 26 Anion Gap 5 BUN 13 Creatinine 0.79 Est GFR ( Amer) 122.0 Est GFR (Non-Af Amer) 94.9 BUN/Creatinine Ratio 16.5 Glucose 103 H Calcium 8.9 Antibody Identification Anti-K 01/03/17 04:29 WBC RBC Hgb Hct MCV MCH MCHC RDW Plt Count MPV Neut % (Auto) Lymph % (Auto) [place] % (Auto) Eos % (Auto) Baso % (Auto) Absolute Neuts (auto) Absolute Lymphs (auto) Absolute Monos (auto) Absolute Eos (auto) Absolute Basos (auto) Absolute Nucleated RBC Nucleated RBC % INR (Anticoag Therapy) 1.70 H Sodium Potassium Chloride Carbon Dioxide Anion Gap BUN Creatinine Est GFR ( Amer) Est GFR (Non-Af Amer) BUN/Creatinine Ratio Glucose Calcium Antibody Identification Microbiology and Other Data: Microbiology 01/02/17 14:24 Blood Venous Aerobic Blood Culture - Preliminary No Growth Day 1 01/02/17 14:24 Blood Venous Anaerobic Blood Culture - Preliminary No Growth Day 1 01/02/17 13:57 Blood Venous Aerobic Blood Culture - Preliminary No Growth Day 1 01/02/17 13:57 Blood Venous Anaerobic Blood Culture - Preliminary No Growth Day 1 12/31/16 11:27 Stool Stool Culture - Final 12/31/16 11:27 Stool Stool Gross Appearance - Final 12/31/16 11:27 Stool Shiga Toxin I & II - Final Negative Shiga Toxin 1 & 2 12/31/16 11:27 Stool C. difficile DNA Amplification - Final 027 Presumptive NEGATIVE Toxigenic C.diff NEGATIVE 12/29/16 22:15 Blood Venous Aerobic Blood Culture - Preliminary No Growth Day 4 12/29/16 22:15 Blood Venous Anaerobic Blood Culture - Preliminary No Growth Day 4 12/29/16 21:00 Blood Venous Aerobic Blood Culture - Preliminary No Growth Day 4 12/29/16 21:00 Blood Venous Anaerobic Blood Culture - Preliminary No Growth Day 4 Assess/Plan/Problems-Billing Assessment: 76 yo male PMH CABG, ICM, myelodysplasia on MWF neupogen (and recently transfusion dependant), multiple CVAs with left sided hemiparesis (on coumadin) , lytic lesions, p/w vomiting, high fevers, frequent but hard stools, twitching movements and flaccid left side (at baseline has needed 2 person assist). Profound leukocytosis (though with recent neupogen, now resolved). On zosyn for suspected aspiration. Continues to have fevers. - Patient Problems (1) Fever Current Visit: Yes Status: Acute Code(s): R50.9 - FEVER, UNSPECIFIED SNOMED Code(s): 165985805 Comment: Initially Bandemia + significant Leukocytosis(now resolved and was in setting of also getting his home neupogen). Unclear source but aspiration was thought most likely after violent vomiting. Possible viral gastroenteritis precipitant? However fevers have remained recurrent despite now day 5 zosyn and day 6 abx. Repeated BCx 01/02. Repeat CXR w/o infiltrate. Procalcitonin negative. FUO with suspicion for hematological at this point. UA negative. Blood Cultures NGTD Cdiff negative continue zosyn through d/c planned likely 01/03. Possible transition to few days augmentin on d/c Thoracic spine MRI w/o e/o abscess. (2) Myelodysplastic disease Current Visit: No Status: Chronic Priority: High Onset Date: 10/14/14 Code(s): C94.6 - MYELODYSPLASTIC DISEASE, NOT CLASSIFIED SNOMED Code(s): 611971397 Comment: - Treated with Neupogen MWF as oupatient. given lytic lesions seen on imaging have added beta 2 microglobulin(still pending). No protein gap or proteinuria. (3) Vomiting Current Visit: Yes Status: Acute Code(s): R11.10 - VOMITING, UNSPECIFIED SNOMED Code(s): 677998601 Comment: resolved. passed bedside swallow (4) Frequent bowel movements Current Visit: Yes Status: Acute Code(s): R19.4 - CHANGE IN BOWEL HABIT SNOMED Code(s): 079123306 Comment: Cdiff negative. Per history more constipation concerns chronically (5) CVA (cerebral infarction) Current Visit: No Status: Chronic Priority: High Onset Date: 10/31/13 Code(s): I63.9 - CEREBRAL INFARCTION, UNSPECIFIED SNOMED Code(s): 744662332 Comment: continue aspirin, coumadin(on for cryptogenic CVAs) left side hemiparesis appreciate Neurology recs. s/p code zuñiga in ED with UR evaluation. continue Physical Therapy per pt was painting a jessica picture of his independance and was actually requiring 2 person assist at [facility]. (6) Hypertension Current Visit: No Status: Chronic Priority: Medium Code(s): I10 - ESSENTIAL (PRIMARY) HYPERTENSION SNOMED Code(s): 30180996 Comment: - Continue Carvedilol 1.5625mg bid - Lisinopril 2.5mg daily (7) Twitching Current Visit: Yes Status: Acute Code(s): R25.3 - FASCICULATION SNOMED Code(s): 599177358 Comment: has not returned. appreciate Neuology recs EEG with possible post-ictal pattern with abrupt stop but no recommendation start an antiepileptic. Status and Disposition: medicine inpatient, still with low grade fevers suspect hematologic and planning d/c back to [facility] 01/04. Attending: Dread Aviles
[2017-01-03] MEDS: Acetaminophen TAB* 325 MG PO PRN (19:45)
[2017-01-03] MEDS: Atorvastatin* 10 MG TAB PO SCH (21:02)
[2017-01-04] MEDS: ZOSYN 3.375 GM Q8H per EXTENDED INFUSION IVPB SCH ×4 (01:30→08:50)
[2017-01-04] MEDS: Omeprazole CAP* 20 MG PO SCH (08:49)
[2017-01-04] MEDS: Nystatin TOP POWDER* 15 GM BTL TOPICAL SCH (08:49)
[2017-01-04] MEDS: Sertraline* 50 MG TAB PO SCH (08:50)
[2017-01-04] MEDS: Lisinopril TAB* 5 MG PO SCH (08:50)
[2017-01-04] MEDS: Carvedilol TAB* 3.125 MG PO SCH (08:50)
[2017-01-04] MEDS: Aspirin Low Dose CHEW TAB* 81 MG PO SCH (08:50)
--- NOTE | 2017-01-04 09:45 | DS ---
DISCHARGE SUMMARY: DATE OF ADMISSION: 12/29/16 DATE OF DISCHARGE: 01/04/17 ADMITTING PROVIDER: Promise Yepez DO. ATTENDING PHYSICIAN: Dread Aviles MD. CHIEF COMPLAINT: Altered mental status, nausea, vomiting, fevers. PRINCIPAL DIAGNOSES: 1. Sepsis. 2. Encephalopathy. 3. Possible viral gastroenteritis. 4. Possible aspiration pneumonia or pneumonitis. 5. Fever of unknown origin, suspected hematological. 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 HISTORY OF PRESENT ILLNESS AND HOSPITAL COURSE: Mr. Cramer is a 76-year-old male with a complicated past medical history as above, with now 4th admission within the last 7 months, who has been more lethargic for the last week, increasingly confused at [facility], had vomiting the day prior to admission, which prompted evaluation in the emergency room. He was diagnosed with a urinary tract infection and discharged back to [facility] on Bactrim. At that time the leukocyte esterase was 1+, wbc's 3+, nitrites and urine bacteria negative, and urine culture ultimately grew nothing. Patient then had another episode of violent vomiting and nurses at [facility] were concerned that the patient likely aspirated. Forty five minutes later, the patient was not acting himself and staring off to his left, unable to hold his posture, and seemed flaccid on his left side, and presented to the emergency room for further evaluation. His head was noted to be twitching to the right along with twitching in his right arm and leg, which were completely new symptoms. He had developed hives on his left arm and anterior chest wall while vancomycin was being administered and after ceftriaxone had been administered. He was admitted for possible sepsis secondary to unknown source of infection, possibly aspiration pneumonia. The patient, of note, is on gen, Tuesday, Tuesday, and Tuesday, and presented with leukocytosis to 42.5. Initially afebrile, but later on hospital day #1 spiked a fever of 102.2. The patient had a chest x- ray which showed stigmata of potential chronic obstructive pulmonary disease and cardiomegaly without change. No focal infiltrates. CT of the head demonstrated no hemorrhage or gross CT stigmata of acute or subacute ischemic stroke, multiple previous infarcts that were seen, as evidenced by encephalomalacia and stigmata of chronic small vessel ischemic disease seen. He had a CT abdomen and pelvis which demonstrated no acute findings, but lytic lesions were found in the lower dorsal vertebrae, specifically T7, T8, and T9 vertebral bodies. These appeared on prior CT's in August 2016 as well, with cholelithiasis and a nonobstructing right renal calculi. Given the twitching, Neurology was consulted and EEG was obtained. There was a pattern of rhythmic delta slowing in the right parietal region which waxed and waned in frequency, sometimes more centrally and contained intermixed sharp features. These suddenly terminated after 30 minutes without any specific intervention. This was consistent with an ictal pattern, which spontaneously terminated. Clinically, the patient was noted to have some twitching of his head to the right as well as intermittent right arm and bilateral feet twitching, but this was not continuous. The remainder of the recording was notable for background slowing, worse on the right, relative loss of faster frequencies on the right suggestive of mild nonspecific diffuse encephalopathy. Neurology did not recommend any antiepileptic initiation. The patient had a thoracic spine MRI on hospital day #2, which showed thoracic hemangiomas, no abnormal enhancement or bone edema to suggest neoplasm of the spine. Findings suggestive of ankylosing spondylitis and degenerative disk disease and osteoarthritis, and no significant neural foraminal narrowing or central canal stenosis. Given some concern that the patient had may be increased frequency of stools, presented by on admission, the patient had been put on Flagyl, but the patient later relates that he usually is chronically constipated and denied any looseness of his bowel movements. C. diff sample was eventually obtained, that was negative , but the patient had already been switched from ceftriaxone and Flagyl to Zosyn for suspicion for possible aspiration event leading to these high fevers. The patient continued Zosyn throughout the course of admission with substantial reduction in his leukocytosis from 42.5 to 36.1 on hospital day #2, to resolution at 6.6 on hospital day #3 and beyond. Of note, the patient had 10 % band neutrophils on admission. The patient did have intermittent low-grade fevers almost daily. Repeat blood cultures were obtained on 01/02/17. All cultures have been negative to-date. The patient was negative on procalcitonin testing also on 01/02/17, and suspicion was for possible hematological underlying condition causing these fevers of unknown origin in the setting of otherwise clinical improvement. The patient was suggested to follow up with Dr. Vallecillo as an outpatient. The patient did have a relatively depressed affect during hospitalization as he is frustrated by his lack of complete recovery from his CVA, yielding in left-sided weakness. The patient is a 2-person assist at baseline and worked with physical therapy and needed a Santa with nursing here, although on last assessment would attempt to [facility]. The patient was recommended to receive VNS and PT services at [facility] to regain functionality as he previously was able to go to [facility] twice a week. DISCHARGE MEDICATIONS: Include: 1. Nystatin topical powder for a yeast infection in his groin (new). 2. Aspirin 81 mg p.o. daily. 3. Atorvastatin 10 mg p.o. daily. 4. Carvedilol 1.5625 mg p.o. b.i.d. 5. Lisinopril 2.5 mg daily. 6. Omeprazole 20 mg p.o. daily. 7. Sertraline 150 mg p.o. daily. 8. Warfarin 2.5 mg p.o. on Tuesday, Tuesday, , and Tuesday, 5 mg p.o. on Tuesday, Tuesday, and Tuesday. 9. Cholecalciferol 1000 units p.o. daily. 10. Dulcolax suppository 10 mg per rectum daily p.r.n. 11. Cyanocobalamin 1000 mcg p.o. daily. 12. Docusate 200 mg p.o. daily. 13. Magnesium hydroxide 30 mg p.o. daily p.r.n. 14. Zofran 4 mg p.o. q.8 hours p.r.n. 15. MiraLAX 17 g p.o. daily. 16. Senna 2 tabs p.o. at bedtime. 17. Spironolactone 12.5 mg p.o. daily. 18. Travoprost Z 0.004% ophthalmic solution 1 drop to both eyes at bedtime. DISCHARGE DIET: Regular, thin liquids, no straws; the patient sometimes needing cues for a reminder to swallow. ACTIVITY LEVEL: As stated above, needing 2-person assist and likely [facility]. FOLLOWUP: Please follow up with Dr. Garbo to evaluate for fever of unknown origin, thought possibly secondary to his underlying hematological condition. Of note, the patient did have a beta-2 microglobulin drawn given his lytic lesions. Also to follow up with Dr. Drew, his primary care provider, within 3 to 5 days of discharge. TIME SPENT: Time spent on discharge was 35 minutes. [id number]/[facility] #: [id number] MTDD
[2017-01-04 13:57] VITALS: BP 115/54
== END 2017-01-04 17:31 | disposition home health service (06) | DRG 871 ==
LOC: ED 18:34 → ICU 21:18 → MEDTELE 12-30 17:20
PROVIDERS: ADMIT Hospitalist; ATTEND Internal Medicine
PROC: 4A10X4Z Monitoring of Central Nervous Electrical Activity, External Approach (ICD-10-PCS; 2016-12-29)
PROC: 5A09457 Assistance with Respiratory Ventilation, 24-96 Consecutive Hours, Continuous Positive Airway Pressure (ICD-10-PCS; principal; 2016-12-31)
DX: A41.9 Sepsis, unspecified organism (principal); G93.40 Encephalopathy, unspecified; J69.0 Pneumonitis due to inhalation of food and vomit; H53.47 Heteronymous bilateral field defects; I42.9 Cardiomyopathy, unspecified; G93.89 Other specified disorders of brain; I69.354 Hemiplegia and hemiparesis following cerebral infarction affecting left non-dominant side; D46.9 Myelodysplastic syndrome, unspecified; K21.9 Gastro-esophageal reflux disease without esophagitis; F03.90 Unspecified dementia, unspecified severity, without behavioral disturbance, psychotic disturbance, mood disturbance, and anxiety; E78.5 Hyperlipidemia, unspecified; E73.9 Lactose intolerance, unspecified; I44.7 Left bundle-branch block, unspecified; I10 Essential (primary) hypertension; G47.33 Obstructive sleep apnea (adult) (pediatric); I25.10 Atherosclerotic heart disease of native coronary artery without angina pectoris; R74.8 Abnormal levels of other serum enzymes; N40.0 Benign prostatic hyperplasia without lower urinary tract symptoms; M48.061 Spinal stenosis, lumbar region without neurogenic claudication; F32.9 Major depressive disorder, single episode, unspecified; R29.725 NIHSS score 25; M45.4 Ankylosing spondylitis of thoracic region; R25.3 Fasciculation; R11.10 Vomiting, unspecified; R50.9 Fever, unspecified; M48.07 Spinal stenosis, lumbosacral region; M10.9 Gout, unspecified; H40.9 Unspecified glaucoma; K59.00 Constipation, unspecified; K80.20 Calculus of gallbladder without cholecystitis without obstruction; N20.0 Calculus of kidney; M51.34 Other intervertebral disc degeneration, thoracic region; M47.9 Spondylosis, unspecified; I69.318 Other symptoms and signs involving cognitive functions following cerebral infarction; I69.398 Other sequelae of cerebral infarction; Z95.1 Presence of aortocoronary bypass graft; Z91.013 Allergy to seafood; Z91.018 Allergy to other foods; Z82.49 Family history of ischemic heart disease and other diseases of the circulatory system; Z80.9 Family history of malignant neoplasm, unspecified; Z87.891 Personal history of nicotine dependence; Z72.89 Other problems related to lifestyle; Z87.442 Personal history of urinary calculi; Z98.49 Cataract extraction status, unspecified eye; Z90.79 Acquired absence of other genital organ(s); Z85.46 Personal history of malignant neoplasm of prostate
CPT/HCPCS: 36415; 70450; 71010; 72157; 74176; 80048; 80053; 80061; 81003; 81015; 82232; 83605; 84145; 84484; 85025; 85610; 85652; 85730; 86850; 86870; 86880; 86900; 86901; 87040; 87045; 87046; 87077; 87086; 87493; 87502; 87899; 93005; 94660; 95951; A9270-GY; A9579; J0696; J1200; J2543; J2930; J3370

== ENCOUNTER 2017-06-18 19:06 | Inpatient (IN) | payer OTHER ==
[2017-06-18] MEDS ORDERED: NS 0.9% 1000 ML* 2,000 ML IV ONE (20:16)
--- NOTE | 2017-06-18 20:43 | RAD ---
INDICATION: Fever. COMPARISON: Comparison is made with a prior chest x-ray study from January 02, 2017. TECHNIQUE: A portable view of the chest was obtained. FINDINGS: The patient appears to be status post coronary artery bypass surgery. The heart is mildly enlarged and unchanged from the prior study. The lungs are underinflated and clear. No pleural effusion is seen. IMPRESSION: POST SURGICAL CHANGES, NO EVIDENCE FOR ACUTE FINDING.
[2017-06-18 21:39] LABS: Hematocrit 31 % (42-52); Hemoglobin 10.3 g/dl (14.0-18.0); INR 1.7 (0.77-1.02); Mean Corpuscular HGB Conc 33 g/dl (31-36); Mean Corpuscular Hemoglobin 29 pg (27-31); Mean Corpuscular Volume 86 fL (80-94); Platelet Count 89 10^3/ul (150-450); Red Blood Count 3.59 10^6/ul (4.0-5.4); Red Cell Distribution Width 17 % (10.5-15); White Blood Count 2.8 10^3/ul (3.5-10.8)
[2017-06-18 21:48] LABS: EGFR Non-African American 74.7 (>60)
[2017-06-18 21:59] LABS: Monocytes % 3 % (0-7)
[2017-06-18 22:07] LABS: Urine Appearance Cloudy; Urine Blood 1+ (Negative); Urine Color Yellow; Urine Ketones Negative (Negative); Urine Protein 1+(30 mg/dL) (Negative); Urine Specific Gravity 1.028 (1.010-1.030); Urine Urobilinogen Negative (Negative)
--- OUTSIDE RECORDS SUMMARY | 2017-06-18 22:12 | XMS REPORT ---
:1940 External Reference #:[id number] Author Organization [facility] Address [address] [address] Phone [phone] Care Team Providers Name Role Phone Mattie Drew MD Primary Care Physician Unavailable Payers Type Date Identification Numbers Payment Provider Subscriber Commercial Policy Number: [id number] [employer] P Miguel A K[employer] Number: [id number] [address] PayID: [id number] [place] [address] Medigap Part B Expires: Policy Number: [employer] Insurance Wilfrido Crystal 2016 [id number] Garry Group Number: [id number] [address] PayID: [id number] [place] [address] Medigap Part B Expires: 2015 Policy Number: [employer] Insurance Jo-Ann Cramer [id number] Group Number: [id number] [address] PayID: [id number] [place] [address] Workers Compensation Onset: 2011 Policy Number: [employer] Jo-Ann Cramer [id number] PayID: [id number] [address] [place] [address] Problems Date Description Provider Status Onset: 01/16/2014 Ischemic stroke Kayleigh Fernandes M.D. Active Note: recurrent Onset: 06/03/2014 Spasticity Kayleigh Fernandes M.D. Active Onset: 06/03/2014 Hemiparesis Kayleigh Fernandes M.D. Active Onset: 11/28/2014 Disturbance in sleep behavior Timmy Lobo M.D. Active Onset: 11/28/2014 Essential hypertension Timmy Lobo M.D. 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 [employer] Cigarette Use Former Cigarette Smoker ETOH Use Denies alcohol use Smoking Patient is a former smoker Smoked in graduate school Recreational Drug Use Denies Drug Use Daily Caffeine Consumes on average 3 cups of regular coffee per day Exercise Type/Frequency Exercises regularly PT 6 times a week 2 times a day Allergies, Adverse Reactions, Alerts Date Description Reaction Status Severity Comments 08/03/2012 Shellfish-derived Products active 01/16/2014 Walnuts active 10/02/2014 Lactose (Intolerance) active 04/24/2012 NKDA inactive Medications Medication Date Status Form Strength Qnty SIG Indications Ordering Provider Lizzette Laxative 11/25 Active Tablets 8.6mg 30tab 1-2 tabs s twice a day Busch, as needed DO FACC constipatio n Ondansetron HCL 07/19 Active 4mg 1 by mouth every 8 hours as needed Coumadin 06/08 Active Tablets 2.5mg 2 tabs on Tuesday and Tuesday, and then 1 on Tue, Tue ,Tue, and Zoloft 10/23 Active Tablets 100mg 135ta take 1 and bs 1/2 tablets [place], by mouth M.D. each day. Colace Active Capsules 100mg 60cap 2 po qam 1 Unknown / s po qhs Aspirin Low Active Tablets 81mg 1 by mouth Unknown Dose /0000 every day Vitamin B12 Active Tablets 1000mcg 1 by mouth Unknown / every day Travatan Z Active Solution 0.004% 1 gtt both Unknown /0000 eyes qhs Acetaminophen Active Tablets 325mg 2 tablets Unknown /0000 by mouth every 4 hours as needed for pain/fever Dulcolax Active Suppository 10mg as needed Unknown /0000 Percocet Active Tablets 5-325mg 1 tab po q Unknown /0000 4 hrs prn Coreg Active Tablets 3.125mg 1/2 tab Unknown /0000 bid. Hold for HR<60 , BP <100 Atorvastatin Active Tablets 10mg 1 by mouth Unknown Calcium /0000 every day Bipap Active Device use at at Unknown /0000 bedtime Vitamin D3 Active Tablets 1000Unit 1 by mouth Unknown /0000 every day Multivitamin Active Tablets 1 by mouth Unknown Adults / every day Polyethylene Active Powder 1450 17 grams Unknown Glycol /0000 mix with 8 oz of water Milk Of Active Suspension 7.75% 15 Unknown Magnesia /0000 milliliters oral every day as needed for constipatio n. Spironolactone Active Tablets 25mg 1/2 by Unknown /0000 mouth every day Omeprazole Active Capsules DR 20mg 1 by mouth Unknown /0000 every day Ketoconazole Active Cream 2% apply to Unknown /0000 face twice a week Nyamyc Active Powder [id number] apply to Unknown /0000 t/GM groin bid Mouthwash-AF Active Liquid use twice Unknown /0000 daily and after meals as needed Enema Active Enema 1 Unknown Disposable /0000 application rectally as needed Saline Nasal Active Solution 0.65% 1-2 sprays Unknown [place] /0000 to both nares every 4 hours as needed Fluticasone Active Suspension 50mcg/Act 2 sprays Unknown Propionate /0000 each nostril qd. Oxycodone-Aceta Active Tablets 5-325mg 1-tabs by Unknown minophen /0000 mouth every 4-6 hours as needed for pain Carvedilol /15 Hx Tablets 3.125mg 60tab bid I25.5 Rigo Arthur /Alfie Holm DO [facility] 11/01 Spironolactone 12/15 Hx Tablets 25mg 30tab 1/2 tablet I25.5 Rigo Arthur /2014 s by mouth Narayan, - every day( DO [facility] 11/01 Dr. Drew) Zoloft 04/03 Hx Tablets 50mg 145ta 1.5 by Kayleigh bs mouth every Dena, - day dx: 311 M.D. 10/23 Omeprazole 04/24 Hx 1 tab po prn Dena, - M.D. 01/24 Clopidogrel 11/14 Hx Tablets 75mg 90tab take 1 by Kayleigh s mouth each Dena, - day M.D. 10/17 Simvastatin 00/00 Hx 1 tab po Unknown /0000 daily - 02/25 Vitamin D3 00/00 Hx 1000Iu 1 po daily Unknown /0000 - 11/01 Vitamin B 6 00/ Hx Tablets 50mg 30tab 1 po qd Unknown /0000 s - 01/15 Hydrocodone 00/00 Hx 1 to 2 Unknown /0000 daily prn - 01/24 Ibuprofen 00 Hx Tablets 200mg 100ta 1 to 2 po Unknown /0000 bs prn - 01/24 Loratadine 00/00 Hx Tablets 10mg 30tab 1 po qhs Unknown /0000 s - 01/24 Vitamin B-12 00/00 Hx (?) 1 capsule Unknown /0000 po daily - 01/15 Metoprolol 00/00 Hx (?) 1 tab po Unknown /0000 daily - 01/15 Escitalopram 00/00 Hx Tablet 20mg 1 tab po Unknown /0000 daily - 01/15 Iron 00/00 Hx (?) 1 tab po Unknown /0000 daily - 01/15 Pantoprazole 00/[address] 40mg 90tab 1 po qd Unknown Sodium /0000 s - 02/25 Zoloft 00/00 Hx Tablets 25mg 30tab 1 by mouth Unknown /0000 s every day - 04/03 Coumadin 00/00 Hx Tablets 3mg 60tab as directed Unknown /0000 s per - protocol 04/14 Omeprazole 00/[address] 20mg 30cap 1 by mouth Unknown /0000 s every day - 11/01 Travatan Z 00/00 Hx Solution 0.004% Unknown /0000 - 04/02 Lipitor 00/00 Hx Tablets 10mg 90tab 1 by mouth Unknown /0000 s qam - 11/01 Loratadine 00/00 Hx Tablets 10mg 1 by mouth Unknown /0000 every day - prn (rare) 07/19 Tylenol 00/00 Hx Tablets 325mg 1 tab po as Unknown /0000 needed - 10/15 Senna 00/00 Hx Tablets 8.6 1 by mouth Unknown /0000 every night - at bedtime 11/01 Enoxaparin Hx Solution 80mg/0.8M 80mg sq bid Unknown Sodium /0000 L - 12/23 Lisinopril Hx Tablets 2.5mg 1 by mouth Unknown /0000 every day - 11/01 Cialis 00 Hx Tablets 10mg every day Unknown /0000 as needed - 06/08 Coumadin 00 Hx Tablets 2mg 2 tab by Unknown /0000 mouth daily - as directed 06/08 protocol Bipap / Hx used at Unknown /0000 night - average of 11/01 3. Milk Of Hx Suspension 2400mg/10 10 Unknown Magnesia /0000 ML milliliters Concentrate - by mouth 11/01 twice a day /2016 as needed Claritin 00/ Hx 1 tablet po Unknown /0000 daily - 11/01 Polyethylene Hx Powder 3350NF qd` Unknown Glycol 3350 /0000 - 11/01 Aldactone Hx Tablets 12.5 1 by mouth Unknown /0000 every day - 01/23 Loratadine Hx Tablets 10mg 1 by mouth Unknown /0000 every day - 01/23 Neupogen Hx Soln Prefill 480mcg/0. mon/wed/fri Unknown /0000 Syringe 8ML - 06/14 Cpap Hx Device for use Unknown /0000 while - sleeping 11/22 Ondansetron Hx Tablets 4mg dissolve Unknown /0000 Dispers one tablet - orally 06/14 every hours as needed for nausea. Medications Administered in Office Medication Date Status Form Strength Qnty SIG Indications Ordering Provider Depomedrol Administered Injection Rosana 40MG Hillary Gilliland M.D. Immunizations CPT Code Status Date Vaccine Lot # [id number] Given 01/30/2015 Fluvirin Im 3Yrs And Older Vital Signs Date Vital Result Comment 06/15/2017 Height 62 inches 5'2" Weight 173.00 lb possible? Heart Rate 68 /min BP Systolic 116 mmHg BP Diastolic 68 mmHg Respiratory Rate 16 /min BMI (Body Mass Index) 31.6 kg/m2 01/24/2017 Heart Rate 70 /min BP Systolic Sitting 138 mmHg BP Diastolic Sitting 78 mmHg Respiratory Rate 16 /min 11/30/2016 Height 62 inches 5'2" Weight 164.00 lb BP Systolic 118 mmHg BP Diastolic 64 mmHg Respiratory Rate 14 /min Body Temperature 97.6 F Pain Level 3 BMI (Body Mass Index) 30.0 kg/m2 11/25/2016 Height 62 inches 5'2" Weight 164.25 lb with shoes Heart Rate 80 /min Ap pulse BP Systolic Sitting 108 mmHg Rue reg cuff BP Diastolic Sitting 70 mmHg Rue reg cuff Respiratory Rate 17 /min BMI (Body Mass Index) 30.0 kg/m2 11/02/2016 Height 62 inches 5'2" Weight 167.00 lb BP Systolic 126 mmHg BP Diastolic 66 mmHg Respiratory Rate 18 /min Body Temperature 97.9 F Pain Level 5 BMI (Body Mass Index) 30.5 kg/m2 07/08/2016 Height 66 inches 5'6" Weight 160.00 lb Heart Rate 73 /min Respiratory Rate 14 /min BMI (Body Mass Index) 25.8 kg/m2 06/16/2016 Height 66 inches 5'6" Weight 160.00 lb Heart Rate 72 /min BP Systolic Sitting 122 mmHg BP Diastolic Sitting 62 mmHg Respiratory Rate 14 /min BMI (Body Mass Index) 25.8 kg/m2 01/12/2016 Height 62 inches 5'2" Weight 163.00 lb Heart Rate 76 /min BP Systolic Sitting 122 mmHg BP Diastolic Sitting 62 mmHg Respiratory Rate 14 /min BMI (Body Mass Index) 29.8 kg/m2 12/16/2015 Height 62 inches 5'2" Weight 162.00 lb with shoes Heart Rate 72 /min BP Systolic Sitting 110 mmHg Ra reg cuff BP Diastolic Sitting 62 mmHg Ra reg cuff BP Systolic Standing 110 mmHg Ra reg cuff BP Diastolic Standing 68 mmHg Ra reg cuff Respiratory Rate 16 /min BMI (Body Mass Index) 29.6 kg/m2 Ejection Fraction 45% date 06/03/15 ECHO 08/28/2015 Height 62 inches 5'2" Weight 155.00 lb Heart Rate 76 /min BP Systolic Sitting 120 mmHg BP Diastolic Sitting 60 mmHg Respiratory Rate 17 /min BMI (Body Mass Index) 28.3 kg/m2 07/22/2015 Height 62 inches 5'2" Weight 157.00 lb Heart Rate 77 /min BP Systolic 112 mmHg BP Diastolic 60 mmHg Respiratory Rate 14 /min O2 % BldC Oximetry 96 % BMI (Body Mass Index) 28.7 kg/m2 06/19/2015 Height 62 inches 5'2" Weight 157.00 lb with shoes and brace Heart Rate 72 /min BP Systolic Sitting 106 mmHg Ra reg cuff BP Diastolic Sitting 70 mmHg Ra reg cuff Respiratory Rate 17 /min BMI (Body Mass Index) 28.7 kg/m2 06/10/2015 Height 62 inches 5'2" Weight 164.00 lb Heart Rate 74 /min BP Systolic Sitting 110 mmHg BP Diastolic Sitting 56 mmHg Respiratory Rate 18 /min O2 % BldC Oximetry 97 % BMI (Body Mass Index) 30.0 kg/m2 05/05/2015 Height 62 inches 5'2" Weight 164.00 lb Heart Rate 76 /min BP Systolic Sitting 104 mmHg BP Diastolic Sitting 46 mmHg Respiratory Rate 16 /min BMI (Body Mass Index) 30.0 kg/m2 03/11/2015 Height 62 inches 5'2" Weight 153.00 lb per pt Heart Rate 80 /min reg BP Systolic Sitting 104 mmHg Rue, reg cuff BP Diastolic Sitting 66 mmHg Rue, reg cuff BP Systolic Standing 100 mmHg Rue BP Diastolic Standing 66 mmHg Rue Respiratory Rate 16 /min BMI (Body Mass Index) 28.0 kg/m2 Ejection Fraction 30-35% as of 08/22/14 echo 01/30/2015 Height 62 inches 5'2" Weight 162.00 lb Heart Rate 76 /min BP Systolic Sitting 134 mmHg BP Diastolic Sitting 72 mmHg Respiratory Rate 18 /min O2 % BldC Oximetry 97 % BMI (Body Mass Index) 29.6 kg/m2 01/28/2015 Height 62 inches 5'2" Weight 163.00 lb with shoes Heart Rate 84 /min BP Systolic Sitting 136 mmHg Ra, reg cuff BP Diastolic Sitting 68 mmHg Ra, reg cuff BP Systolic Standing 132 mmHg Ra BP Diastolic Standing 70 mmHg Ra Respiratory Rate 16 /min BMI (Body Mass Index) 29.8 kg/m2 Ejection Fraction 40-45% 03/15/14 01/17/2015 Height 62 inches 5'2" Weight 162.00 lb Heart Rate 68 /min BP Systolic Sitting 130 mmHg BP Diastolic Sitting 71 mmHg Respiratory Rate 16 /min BMI (Body Mass Index) 29.6 kg/m2 12/24/2014 Height 62 inches 5'2" Weight 165.50 lb w/ shoes Heart Rate 82 /min BP Systolic Sitting 112 mmHg LA, reg BP Diastolic Sitting 62 mmHg LA, reg BMI (Body Mass Index) 30.3 kg/m2 Ejection Fraction 30-35% 08/22/14 Scooter 11/28/2014 Height 62 inches 5'2" Weight 168.00 lb Heart Rate 75 /min BP Systolic 120 mmHg BP Diastolic 72 mmHg Respiratory Rate 14 /min Body Temperature 98.5 F O2 % BldC Oximetry 97 % BMI (Body Mass Index) 30.7 kg/m2 Neck Circumference in inches 16.8 10/23/2014 Height 62 inches 5'2" Weight 164.00 lb Heart Rate 92 /min BP Systolic Sitting 142 mmHg BP Diastolic Sitting 78 mmHg Respiratory Rate 20 /min BMI (Body Mass Index) 30.0 kg/m2 10/03/2014 Height 62 inches 5'2" Weight 164.00 lb Heart Rate 76 /min BP Systolic Sitting 144 mmHg BP Diastolic Sitting 88 mmHg Respiratory Rate 14 /min BMI (Body Mass Index) 30.0 kg/m2 10/02/2014 Height 62 inches 5'2" Weight 166.00 lb w/shoes Heart Rate 70 /min BP Systolic Sitting 156 mmHg LA reg cuff BP Diastolic Sitting 86 mmHg LA reg cuff BMI (Body Mass Index) 30.4 kg/m2 Ejection Fraction 30-35 Scooter 08/22/14 09/18/2014 Height 62 inches 5'2" Weight 168.00 lb Heart Rate 64 /min BP Systolic Sitting 140 mmHg BP Diastolic Sitting 82 mmHg Respiratory Rate 14 /min BMI (Body Mass Index) 30.7 kg/m2 06/03/2014 Height 62 inches 5'2" Weight 168.00 lb Heart Rate 76 /min BP Systolic Sitting 138 mmHg BP Diastolic Sitting 72 mmHg Respiratory Rate 12 /min BMI (Body Mass Index) 30.7 kg/m2 05/06/2014 Height 62 inches 5'2" Weight 173.00 lb w/shoes Heart Rate 72 /min BP Systolic Sitting 140 mmHg Ra reg cuff BP Diastolic Sitting 64 mmHg Ra reg cuff Respiratory Rate 12 /min BMI (Body Mass Index) 31.6 kg/m2 04/03/2014 Height 62 inches 5'2" Heart Rate 78 /min BP Systolic Sitting 128 mmHg BP Diastolic Sitting 72 mmHg Respiratory Rate 16 /min 02/26/2014 Height 62 inches 5'2" Weight 169.00 lb Heart Rate 84 /min BP Systolic 142 mmHg La reg BP Diastolic 64 mmHg La reg BMI (Body Mass Index) 30.9 kg/m2 01/16/2014 Height 62 inches 5'2" Weight 172.00 lb Heart Rate 76 /min BP Systolic Sitting 138 mmHg BP Diastolic Sitting 76 mmHg Respiratory Rate 16 /min BMI (Body Mass Index) 31.5 kg/m2 04/23/2013 Heart Rate 70 /min BP Systolic Sitting 140 mmHg BP Diastolic Sitting 80 mmHg Respiratory Rate 16 /min 01/24/2013 Heart Rate 72 /min BP Systolic Sitting 130 mmHg BP Diastolic Sitting 70 mmHg Respiratory Rate 12 /min 01/24/2013 Heart Rate 72 /min BP Systolic Sitting 130 mmHg BP Diastolic Sitting 70 mmHg Respiratory Rate 12 /min 08/03/2012 Heart Rate 80 /min BP Systolic Sitting 138 mmHg BP Diastolic Sitting 70 mmHg Respiratory Rate 16 /min 04/24/2012 Heart Rate 76 /min BP Systolic Sitting 138 mmHg BP Diastolic Sitting 76 mmHg Respiratory Rate 16 /min 01/17/2012 Heart Rate 72 /min BP Systolic 136 mmHg BP Diastolic 78 mmHg Respiratory Rate 18 /min Results Test Date Test Result H/L Range Note Inr/Protime 08/20/2016 Inr 2.00 High 0.89-1.11 1 CBC Auto Diff 05/07/2015 White Blood Count 2.5 10^3/uL Low 3.5-10.8 Red Blood Count 3.06 10^6/uL Low 4.0-5.4 Hemoglobin 7.2 g/dL Low 14.0-18.0 Hematocrit 23 % Low 42-52 Mean Corpuscular Volume 77 fL Low 80-94 Mean Corpuscular Hemoglobin 24 pg Low 27-31 Mean Corpuscular HGB Conc 31 g/dL 31-36 Red Cell Distribution Width 21 % High 10.5-15 Platelet Count 100 10^3/uL Low 150-450 Mean Platelet Volume 9 um3 7.4-10.4 Abs Neutrophils 1.8 10^3/uL 1.5-7.7 Abs Lymphocytes 0.5 10^3/uL Low 1.0-4.8 Abs Monocytes 0.1 10^3/uL 0-0.8 Abs Eosinophils 0 10^3/uL 0-0.6 Abs Basophils 0 10^3/uL 0-0.2 Abs Nucleated RBC 0 10^3/uL Granulocyte % 73.2 % 38-83 Lymphocyte % 20.6 % Low 25-47 Monocyte % 5.4 % 1-9 Eosinophil % 0.3 % 0-6 Basophil % 0.5 % 0-2 Nucleated Red Blood Cells % 0.2 Retic Count 05/07/2015 Retic Count 2.5 % High 0.5-1.5 Corrected Retic Count 1.3 % 0.5-1.5 Maturation Factor Retic 2.0 Retic Index 0.70 Mean Retic Volume 96.8 Immature Retic Fraction 0.40 RBC Retic Count 3.06 10^6/uL Low 4.6-6.2 Hematocrit for Retic CNT 23 % Low 42-52 Inr/Protime 05/07/2015 Inr 3.54 High 0.89-1.11 Comp Metabolic Panel 05/07/2015 Sodium 136 mmol/L 133-145 Potassium 3.4 mmol/L Low 3.5-5.0 Chloride 103 mmol/L 101-111 Co2 Carbon Dioxide 28 mmol/L 22-32 Anion Gap 5 mmol/L 2-11 Glucose 131 mg/dL High 70-100 Blood Urea Nitrogen 9 mg/dL 6-24 Creatinine 0.83 mg/dL 0.67-1.17 BUN/Creatinine Ratio 10.8 8-20 Calcium 8.9 mg/dL 8.6-10.3 Total Protein 7.0 g/dL 6.4-8.9 Albumin 3.6 g/dL 3.2-5.2 Globulin 3.4 g/dL 2-4 Albumin/Globulin Ratio 1.1 1-3 Total Bilirubin 0.40 mg/dL 0.2-1.0 Alkaline Phosphatase 78 U/L 34-104 Alt 22 U/L 7-52 Ast 25 U/L 13-39 Egfr Non- 89.8 >60 Egfr 115.5 >60 2 Laboratory test finding 05/07/2015 LDH 160 U/L 140-271 Type & Screen 05/07/2015 Patient Blood Type O Positive Antibody Screen NEGATIVE Laboratory test finding 05/07/2015 Packed Cells SEE RESULTS BELO <SEE 3 NOTE> Comp Metabolic Panel 05/05/2015 Sodium 134 mmol/L 133-145 Potassium 3.9 mmol/L 3.5-5.0 Chloride 101 mmol/L 101-111 Co2 Carbon Dioxide 29 mmol/L 22-32 Anion Gap 4 mmol/L 2-11 Glucose 96 mg/dL 70-100 Blood Urea Nitrogen 18 mg/dL 6-24 Creatinine 0.88 mg/dL 0.67-1.17 BUN/Creatinine Ratio 20.5 High 8-20 Calcium 8.6 mg/dL 8.6-10.3 Total Protein 6.9 g/dL 6.4-8.9 Albumin 3.8 g/dL 3.2-5.2 Globulin 3.1 g/dL 2-4 Albumin/Globulin Ratio 1.2 1-3 Total Bilirubin 0.30 mg/dL 0.2-1.0 Alkaline Phosphatase 85 U/L 34-104 Alt 27 U/L 7-52 Ast 34 U/L 13-39 Egfr Non- 84.0 >60 Egfr 108.0 >60 4 Liver Function Panel 05/05/2015 Direct Bilirubin 0.10 mg/dL 0.03-0.18 Indirect Bilirubin 0.2 mg/dL Low 0.3-1.0 Iron & Iron Binding Capacity 05/05/2015 Iron 19 g/dL Low 50-212 Unsaturated Iron Binding 328 g/dL Total Iron Binding Capacity 347 g/dL 250-450 % Iron Saturation 5 % Low 15-55 Laboratory test finding 05/05/2015 TSH (Thyroid Stim Horm) 1.30 ?IU/mL 0.34-5.60 Ferritin 21.9 ng/mL Low 24-336 LDH 158 U/L 140-271 Basic Metabolic Panel 02/26/2015 Sodium 137 mmol/L 133-145 5 Potassium 3.9 mmol/L 3.5-5.0 5 Chloride 102 mmol/L 101-111 5 Co2 Carbon Dioxide 30 mmol/L 22-32 5 Anion Gap 5 mmol/L 2-11 5 Glucose 106 mg/dL High 70-100 5 Blood Urea Nitrogen 15 mg/dL 6-24 5 Creatinine 0.86 mg/dL 0.67-1.17 5 BUN/Creatinine Ratio 17.4 8-20 5 Calcium 9.1 mg/dL 8.6-10.3 5 Egfr Non- 86.5 >60 5 Egfr 111.2 >60 5, 6 Basic Metabolic Panel 02/04/2015 Sodium 140 mmol/L 133-145 Potassium 4.2 mmol/L 3.5-5.0 Chloride 104 mmol/L 101-111 Co2 Carbon Dioxide 31 mmol/L 22-32 Anion Gap 5 mmol/L 2-11 Glucose 118 mg/dL High 70-100 Blood Urea Nitrogen 12 mg/dL 6-24 Creatinine 0.81 mg/dL 0.67-1.17 BUN/Creatinine Ratio 14.8 8-20 Calcium 9.1 mg/dL 8.6-10.3 Egfr Non- 92.6 >60 Egfr 119.2 >60 7 Laboratory test finding 12/10/2014 Uric Acid 6.1 mg/dL 4.4-7.6 Vitamin B12 793 pg/mL 180-914 8 Vitamin D Total 25(Oh) 32.4 ng/mL 30-50 Hemoglobin A1c (Glyco HGB) 5.1 % Less than 6.0 9 Lipid Profile (Trig/Chol/HDL) 12/10/2014 Triglycerides 53 mg/dL 10 Cholesterol 111 mg/dL 11 HDL Cholesterol 27.2 mg/dL 12 LDL Cholesterol 73 mg/dL 13 CBC Auto Diff 11/05/2014 White Blood Count 2.3 10^3/uL Low 4.8-10.8 14 Red Blood Count 4.26 10^6/uL 4.0-5.4 Hemoglobin 11.5 g/dL Low 14.0-18.0 Hematocrit 36 % Low 42-52 Mean Corpuscular Volume 85 fL 80-94 Mean Corpuscular Hemoglobin 27 pg 27-31 Mean Corpuscular HGB Conc 32 g/dL 31-36 Red Cell Distribution Width 18 % High 10.5-15 Platelet Count 84 10^3/uL Low 150-450 15 Mean Platelet Volume 11 um3 High 7.4-10.4 Abs Neutrophils 1.1 10^3/uL Low 1.5-7.7 Abs Lymphocytes 1.0 10^3/uL 1.0-4.8 Abs Monocytes 0.2 10^3/uL 0-0.8 Abs Eosinophils 0 10^3/uL 0-0.6 Abs Basophils 0 10^3/uL 0-0.2 Abs Nucleated RBC 0 10^3/uL Granulocyte % 46.2 % 38-83 Lymphocyte % 43.4 % 25-47 Monocyte % 9.1 % High 1-9 Eosinophil % 0.2 % 0-6 Basophil % 1.1 % 0-2 Nucleated Red Blood Cells % 0 Basic Metabolic Panel 10/11/2014 Sodium 137 mmol/L 133-145 Potassium 3.7 mmol/L 3.5-5.0 Chloride 101 mmol/L 101-111 Co2 Carbon Dioxide 29 mmol/L 22-32 Anion Gap 7 mmol/L 2-11 Glucose 90 mg/dL 70-100 Blood Urea Nitrogen 13 mg/dL 6-24 Creatinine 0.83 mg/dL 0.67-1.17 BUN/Creatinine Ratio 15.7 8-20 Calcium 9.4 mg/dL 8.6-10.3 Egfr Non- 90.1 >60 Egfr 115.8 >60 16 CBC Auto Diff 10/11/2014 White Blood Count 2.2 10^3/uL Low 4.8-10.8 Red Blood Count 4.60 10^6/uL 4.0-5.4 Hemoglobin 12.4 g/dL Low 14.0-18.0 Hematocrit 38 % Low 42-52 Mean Corpuscular Volume 83 fL 80-94 Mean Corpuscular Hemoglobin 27 pg 27-31 Mean Corpuscular HGB Conc 32 g/dL 31-36 Red Cell Distribution Width 18 % High 10.5-15 Platelet Count 118 10^3/uL Low 150-450 Mean Platelet Volume 11 um3 High 7.4-10.4 Abs Neutrophils 0.9 10^3/uL Low 1.5-7.7 Abs Lymphocytes 1.1 10^3/uL 1.0-4.8 Abs Monocytes 0.2 10^3/uL 0-0.8 Abs Eosinophils 0 10^3/uL 0-0.6 Abs Basophils 0 10^3/uL 0-0.2 Abs Nucleated RBC 0 10^3/uL Granulocyte % 40.9 % 38-83 Lymphocyte % 49.6 % High 25-47 Monocyte % 8.5 % 1-9 Eosinophil % 0.3 % 0-6 Basophil % 0.7 % 0-2 Nucleated Red Blood Cells % 0.1 Lupus Anticoagulant AB 10/03/2014 Lac PT Mix 1:1 12.7 sec 17 Lac Aptt Mix 1:1 32 sec 26 - 36 18 Lac DRVVT Mix Ratio 0.9 ratio 0.0 - 1.1 19 Lup Hexthrombin Time (Bovine) 19 sec 15 - 23 20 Prothrombin Time(Lac) 37.9 sec 21 Lac Inr 3.4 Lac Aptt 47 sec 26 - 36 Lac DRVVT Screen Ratio 1.4 ratio 0.0 - 1.1 Lupus Anticoagulant Interpreta See Comment 22 Lupus Anticoagulant Review By Teri Okeefe <SEE NOTE> 23 Special Coagulation Interp Performed 24 Cardiolipin Igg/Igm 10/03/2014 Phospholipid Ab IgM, S < 4.0 MPL 25 Phospholipid Ab IgG < 4.0 GPL 26 Comp Metabolic Panel 08/10/2014 Sodium 137 mmol/L 133-145 Potassium 3.6 mmol/L 3.5-5.0 Chloride 100 mmol/L Low 101-111 Co2 Carbon Dioxide 32 mmol/L 22-32 Anion Gap 5 mmol/L 2-11 Glucose 111 mg/dL High 70-100 Blood Urea Nitrogen 16 mg/dL 6-24 Creatinine 1.07 mg/dL 0.67-1.17 BUN/Creatinine Ratio 15.0 8-20 Calcium 9.3 mg/dL 8.6-10.3 Total Protein 7.6 g/dL 6.4-8.9 Albumin 4.2 g/dL 3.2-5.2 Globulin 3.4 g/dL 2-4 Albumin/Globulin Ratio 1.2 1-3 Total Bilirubin 0.40 mg/dL 0.2-1.0 Alkaline Phosphatase 86 U/L 34-104 Alt 16 U/L 7-52 Ast 23 U/L 13-39 Egfr Non- 67.2 >60 Egfr 86.4 >60 27 Laboratory test finding 08/10/2014 C Reactive Protein 18.80 mg/L High &lt ; 5.00 28 CBC Auto Diff 08/10/2014 White Blood Count 3.1 10^3/uL Low 4.8-10.8 Red Blood Count 4.54 10^6/uL 4.0-5.4 Hemoglobin 12.3 g/dL Low 14.0-18.0 Hematocrit 38 % Low 42-52 Mean Corpuscular Volume 83 fL 80-94 Mean Corpuscular Hemoglobin 27 pg 27-31 Mean Corpuscular HGB Conc 32 g/dL 31-36 Red Cell Distribution Width 19 % High 10.5-15 Platelet Count 111 10^3/uL Low 150-450 Mean Platelet Volume 10 um3 7.4-10.4 Abs Neutrophils 1.6 10^3/uL 1.5-7.7 Abs Lymphocytes 1.1 10^3/uL 1.0-4.8 Abs Monocytes 0.2 10^3/uL 0-0.8 Abs Eosinophils 0 10^3/uL 0-0.6 Abs Basophils 0.1 10^3/uL 0-0.2 Abs Nucleated RBC 0 10^3/uL Granulocyte % 51.6 % 38-83 Lymphocyte % 35.8 % 25-47 Monocyte % 7.4 % 1-9 Eosinophil % 0.8 % 0-6 Basophil % 4.4 % High 0-2 Nucleated Red Blood Cells % 0 Laboratory test finding 08/10/2014 Partial Thrombo Time 32.6 seconds 26.0 -36.3 PTT Inr/Protime 08/10/2014 Inr 1.38 High 0.78-1.07 1 [id number] 2 Because ethnic data is not always readily available, this report includes an eGFR for both -Americans and non- Americans. The National Kidney Disease Education Program (NKDEP) does not endorse the use of the MDRD equation for patients that are not between the ages of 18 and 70, are , have extremes of body size, muscle mass, or nutritional status, or are non- or non-. According to the National Kidney Foundation, irrespective of diagnosis, the stage of the disease is based on the level of kidney function: Stage Description GFR(mL/min/1.73 m(2)) 1 Kidney damage with normal or decreased GFR 90 2 Kidney damage with mild decrease in GFR 60-89 3 Moderate decrease in GFR 30-59 4 Severe decrease in GFR 15-29 5 Kidney failure <15 (or dialysis) 3 SEE RESULTS BELOW [id number] OP PC TRANSFUSED 05/08/15 1124 [id number] OP PC TRANSFUSED 05/08/15 1334 4 Because ethnic data is not always readily available, this report includes an eGFR for both -Americans and non- Americans. The National Kidney Disease Education Program (NKDEP) does not endorse the use of the MDRD equation for patients that are not between the ages of 18 and 70, are , have extremes of body size, muscle mass, or nutritional status, or are non- or non-. According to the National Kidney Foundation, irrespective of diagnosis, the stage of the disease is based on the level of kidney function: Stage Description GFR(mL/min/1.73 m(2)) 1 Kidney damage with normal or decreased GFR 90 2 Kidney damage with mild decrease in GFR 60-89 3 Moderate decrease in GFR 30-59 4 Severe decrease in GFR 15-29 5 Kidney failure <15 (or dialysis) 5 in 2 weeks FASTING 6 Because ethnic data is not always readily available, this report includes an eGFR for both -Americans and non- Americans. The National Kidney Disease Education Program (NKDEP) does not endorse the use of the MDRD equation for patients that are not between the ages of 18 and 70, are , have extremes of body size, muscle mass, or nutritional status, or are non- or non-. According to the National Kidney Foundation, irrespective of diagnosis, the stage of the disease is based on the level of kidney function: Stage Description GFR(mL/min/1.73 m(2)) 1 Kidney damage with normal or decreased GFR 90 2 Kidney damage with mild decrease in GFR 60-89 3 Moderate decrease in GFR 30-59 4 Severe decrease in GFR 15-29 5 Kidney failure <15 (or dialysis) 7 Because ethnic data is not always readily available, this report includes an eGFR for both -Americans and non- Americans. The National Kidney Disease Education Program (NKDEP) does not endorse the use of the MDRD equation for patients that are not between the ages of 18 and 70, are , have extremes of body size, muscle mass, or nutritional status, or are non- or non-. According to the National Kidney Foundation, irrespective of diagnosis, the stage of the disease is based on the level of kidney function: Stage Description GFR(mL/min/1.73 m(2)) 1 Kidney damage with normal or decreased GFR 90 2 Kidney damage with mild decrease in GFR 60-89 3 Moderate decrease in GFR 30-59 4 Severe decrease in GFR 15-29 5 Kidney failure <15 (or dialysis) 8 Normal Range 180 to 914 Indeterminate Range 145 to 180 Deficient Range <145 9 Therapeutic target for the treatment of diabetes Mellitus patients is <7% HBA1C, and in selective patients <6.0%.Please refer to [place] [employer] Diabetic care guidelines for further information. 10 Desirable <150 Borderline high 150-199 High 200-499 Very High >500 11 Desirable <200 Borderline high 200-239 High >239 12 Low <40 Desirable: 40-60 High: >60 13 Desirable: <100 mg/dL Near Optimal: 100-129 mg/dL Borderline High: 130-159 mg/dL High: 160-189 mg/dL Very High: >189 mg/dL 14 Consistent with previous results on 10/15/14. 15 Consistent with previous results on 10/15/14. 16 Because ethnic data is not always readily available, this report includes an eGFR for both -Americans and non- Americans. The National Kidney Disease Education Program (NKDEP) does not endorse the use of the MDRD equation for patients that are not between the ages of 18 and 70, are , have extremes of body size, muscle mass, or nutritional status, or are non- or non-. According to the National Kidney Foundation, irrespective of diagnosis, the stage of the disease is based on the level of kidney function: Stage Description GFR(mL/min/1.73 m(2)) 1 Kidney damage with normal or decreased GFR 90 2 Kidney damage with mild decrease in GFR 60-89 3 Moderate decrease in GFR 30-59 4 Severe decrease in GFR 15-29 5 Kidney failure <15 (or dialysis) 17 REFERENCE VALUE 10.3 - 12.8 Test Performed by: [place] [address] Plasticator: Slade Ridley II, M.D., Ph.D. 18 Test Performed by: [place] [address] Plasticator: Slade Ridley II, M.D., Ph.D. 19 Test Performed by: [address] [address] Plasticator: Slade Ridley II, M.D., Ph.D. 20 Test Performed by: [address] [address] Plasticator: Slade Ridley II, M.D., Ph.D. 21 REFERENCE VALUE 10.3 - 12.8 22 IMPRESSION: 1) Results are consistent with warfarin anticoagulation effects (INR 3.4); See comments and suggest clinical correlation. 2) No evidence of lupus anticoagulant (LAC) in the overall data context (probable warfarin anticoagulation effects); see comments and suggest clinical correlation. COMMENTS: Mixing study of the prolonged prothrombin time (PT) is consistent with coagulation factor deficiency (effects of warfarin anticoagulation, vitamin K deficiency, liver disease, etc.) or with effects of direct-acting anticoagulant therapy; suggest clinical correlation. The normal thrombin time (TT) provides no evidence of heparin or direct thrombin inhibitor (DTI) anticoagulation therapy effects within assay sensitivity. Mixing studies of the mildly prolonged activated partial thromboplastin time (APTT) and dilute Rhys viper venom time (DRVVT screen and mix ratios) show no inhibition and provide no evidence of lupus anticoagulant (LAC) by either metholology. The prolonged APTT and DRVVT screen ratio are consistent with warfarin anticoagulation effects. [facility] serologic testing is negative for IgG and IgM anticardiolipin antibodies, providing no additional evidence of antiphospholipid antibodies by this metholology. 23 Summer Shelby M.D. Test Performed by: [address] [address] Plasticator: Slade Ridley II, M.D., Ph.D. 24 Test Performed by: [address] [address] Plasticator: Slade Ridley II, M.D., Ph.D. 25 REFERENCE VALUE <10.0 (Negative) 26 REFERENCE VALUE <10.0 (Negative) Test Performed by: [facility] [place] [address] Plasticator: Slade Ridley II, M.D., Ph.D. 27 Because ethnic data is not always readily available, this report includes an eGFR for both -Americans and non- Americans. The National Kidney Disease Education Program (NKDEP) does not endorse the use of the MDRD equation for patients that are not between the ages of 18 and 70, are , have extremes of body size, muscle mass, or nutritional status, or are non- or non-. According to the National Kidney Foundation, irrespective of diagnosis, the stage of the disease is based on the level of kidney function: Stage Description GFR(mL/min/1.73 m(2)) 1 Kidney damage with normal or decreased GFR 90 2 Kidney damage with mild decrease in GFR 60-89 3 Moderate decrease in GFR 30-59 4 Severe decrease in GFR 15-29 5 Kidney failure <15 (or dialysis) 28 Acute inflammation: >10.00 Procedures Date CPT Code Description Status Comment 12/29/2016 15658 EEG Monitoring & Video Completed Recording 11/25/2016 60956 EKG Tracing & Completed Interpretation 10/07/2016 82282 Open TX Of Femoral Completed FX,Promimal End,Neck Internal Fixation 10/07/2016 28918 Open TX Of Femoral Completed FX,Promimal End,Neck Internal Fixation 10/06/2016 82997 EKG, Interpretation Only Completed 08/18/2016 66384 EEG Recording Awake & Completed Drowsy 07/08/2016 71791 Inject/Drain Joint/Bursa Completed Small 05/23/2016 94893 ECHO Transthorasic Realtime Completed 2D W Doppler & Color Flow Hosp 05/23/2016 73540 EKG, Interpretation Only Completed 09/11/2015 23735 EEG Recording Awake & Completed Asleep 06/13/2015 96575 ECHO Transthoracic, Real-Time Completed 2D With Doppler And Color Flow 04/08/2015 56688 Polysomnography Sleep Staging Completed 4+ Parameters W/Cpap 03/11/2015 73880 EKG Tracing & Completed Interpretation 12/31/2014 43263 Polysomnography Sleep Staging Completed 4+ Parameters W/Cpap 10/02/2014 35604 EKG Tracing & Completed Interpretation 08/22/2014 79363 Echocardiography, Completed Transesophageal, Real Time W/Image 2D W/W/O M-M 08/22/2014 55227 Pulse Completed Wave/Continuous-Interp.RPT 08/22/2014 16127 Color Flow Doppler/Interp Completed & Reprt 05/06/2014 23266 EKG Tracing & Completed Interpretation 04/22/2014 99099 Holter Monitor Review (24 Completed hr)dr review & interp only 04/22/2014 76529 ECG Monitor/Recording Completed W/Visual Superimposition Scanning 04/18/2014 19008 Treadmill Interp/Report Only Completed 04/18/2014 87797 Stress Test Supervsn W/Out Completed I/R 03/15/2014 96870 ECHO Transthoracic, Real-Time Completed 2D With Doppler And Color Flow 02/26/2014 11996 EKG Tracing & Completed Interpretation 01/25/2014 Diabetic Retinal Eye Exam Completed Document: 01/25/14 - Consult Ophthalmology 10/24/2013 16991 ECHO Transthorasic Realtime Completed 2D W Doppler & Color Flow Hosp 04/29/2012 20520 EKG, Interpretation Only Completed 11/01/2011 43937 EEG Recording Awake & Completed Asleep 11/01/2011 62224 EEG Recording Awake & Completed Asleep Encounters Type Date Location Provider CPT E/M Dx Office Visit 01/24/2017 [facility] Kayleigh Fernandes M.D. 27957 G81.94 2:00p Services Of Back Pad Inspector R41.4 Office Visit 01/04/2017 9:37a [facility] [address] D46.9 Hospitalists R50.9 G81.94 A41.9 Office Visit 01/03/2017 7:00a [facility] [address] D46.9 Hospitalists R50.9 G81.94 A41.9 Office Visit 01/02/2017 7:00a [facility],[place] [address] D46.9 Hospitalists R50.9 G81.94 A41.9 Office Visit 01/01/2017 6:59a [facility] [address] D46.9 Hospitalists R50.9 G81.94 Office Visit 12/31/2016 6:57a [facility] [address] A41.9 Hospitalists D46.9 R50.9 G81.94 Office Visit 12/30/2016 6:57a [facility] [address] N30.00 Hospitalists D46.9 A41.9 I25.10 Office Visit 12/30/2016 3:15p [facility] Ravi Pisano, 20991 G93.40 M.DAleksandar A41.9 Office Visit 12/29/2016 6:56a [facility],pc Promise Lucho, 83533 R41.0 Hospitalists M.D. A41.9 N30.00 D46.9 Office Visit 12/29/2016 5:00p [facility] Kayleighkaci Fernandes, 01384 G93.40 MFaby I69.319 D46.9 A41.9 Office Visit 11/25/2016 3:40p [facility] [place] [address] I25.5 [facility] I25.10 I25.2 Z79.01 Office Visit 10/25/2016 4:14p [facility] Rocco Natarajan, 28754 S72.002A Assoc,pc Hospitalists Z86.73 I25.5 G47.33 Office Visit 10/24/2016 4:13p [facility] [address] I25.5 Hospitalists Z86.73 S72.002A G47.33 Office Visit 10/23/2016 4:11p [facility] [address] I25.5 Hospitalists G47.33 S72.002A Z86.73 Office Visit 10/22/2016 4:08p [facility] Radha Hernandez, 89512 S72.002A Assoc,pc Hospitalists MFaby Z86.73 I25.5 G47.33 Office Visit 10/21/2016 4:07p [facility] Karis Hernandez, 46069 S72.002A Assoc,pc Hospitalists MFaby Z86.73 I25.5 G47.33 Office Visit 10/20/2016 3:41p [facility] Karis Hernandez, 81953 I25.5 Hospitalists M.Ira G47.33 S72.002A Z86.73 Office Visit 10/19/2016 3:40p [facility] Karis Hernandez, 97461 I25.5 Hospitalists MFaby S72.002A Z86.73 Office Visit 10/18/2016 3:40p [facility] Aracely Trey, 08323 I25.5 Assoc,pc SALVAGER Hospitalists G47.33 S72.002A Z86.73 Office Visit 10/17/2016 3:39p [facility] Aracely Trey, 13072 I25.5 Assoc,pc SALVAGER Hospitalists G47.33 S72.002A Z86.73 Office Visit 10/16/2016 3:38p [facility] Aracely Trey, 07943 I25.5 Assoc,pc SALVAGER Hospitalists G47.33 S72.002A Z86.73 Office Visit 10/15/2016 9:01a [facility] Aracely Trey, 92001 I25.5 Assoc,pc SALVAGER Hospitalists G47.33 S72.002A Z86.73 Office Visit 10/14/2016 9:01a [facility] Aracely Trey, 28043 I25.5 Assoc,pc SALVAGER Hospitalists G47.33 S72.002A Z86.73 Office Visit 10/13/2016 9:00a [facility] Radha Russ Yaadv, 29942 I25.5 Assoc,pc PA Hospitalists G47.33 S72.002A Z86.73 Office Visit 10/12/2016 2:56p [facility] Jude[facility]iravgood [facility], 70[address] I25.5 Assoc,pc PA Hospitalists G47.33 S72.002A Z86.73 Office Visit 10/11/2016 [facility] 55185 S72.002A Assoc,pc PA Hospitalists I25.5 G47.33 Z86.73 Office Visit 10/10/2016 3:46p [facility], 00910 S72.002A Assoc,pc Hospitalists SALVAGER I25.5 G47.33 Z86.73 Office Visit 10/09/2016 3:46p [facility], 04301 S72.002A Assoc,pc Hospitalists SALVAGER I25.5 G47.33 Z86.73 Office Visit 10/08/2016 3:45p [facility], 00706 S72.002A Assoc,pc Hospitalists SALVAGER I25.5 G47.33 Z86.73 Office Visit 10/08/2016 12:04p [facility] [place] [address] I25.10 [facility] I25.2 I25.5 Z79.01 Office Visit 10/07/2016 8:00a [facility] [place] [address] S72.002A C.M.A. Office Visit 10/07/2016 3:44p [facility] 25259 S72.002A Assoc,pc Hospitalists MARIANN Yadav I25.5 G47.33 Office Visit 10/06/2016 3:44p [facility] Leif, 60413 S72.002A Assoc,pc PA Hospitalists I25.5 G47.33 Z86.73 Office Visit 08/30/2016 10:23a [facility] Florentino Chadwick, 57194 J69.0 Infectious Diseases MAleksandarDAleksandar D46.9 Office Visit 08/29/2016 3:00p [facility] [address] R50.9 Hospitalists D46.9 D61.818 Office Visit 08/26/2016 9:55a [facility] Florentino Chadwick, 92493 R50.9 Infectious Diseases M.DAleksandar R51 D46.9 R05 Office Visit 08/18/2016 3:26p [facility] Kayleigh Fernandes, 58819 R41.0 M.DAleksandar I67.9 Office Visit 08/18/2016 10:07a [facility], Momo Eddy, 24275 R41.0 Hospitalists M.DAleksandar D46.9 D70.8 Z86.73 Office Visit 08/17/2016 10:07a [facility], [place] [address] R41.0 Hospitalists D46.9 D70.8 Z86.73 Office Visit 08/17/2016 3:25p [facility]hospitalist [facility] Kayleigh Fernandes, 83120 R41.0 M.DAleksandar I67.9 Office Visit 08/16/2016 10:06a [facility], 51246 R41.0 Assoc, Hospitalists MAleksandarDAleksandar D46.9 D70.8 Z86.73 Office Visit 07/08/2016 10:30a [facility] Rosana Gilliland, 57042 M19.242 Of Alexi Rojas M19.142 Office Visit 06/16/2016 4:00p [facility] Kayleigh Fernandes M.D. 75458 I69.398 Services Of [facility] H53.462 I69.319 Office Visit 05/28/2016 3:37p [facility], Adam Victor, 34293 I63.8 Hospitalists MFaby D46.9 I25.10 I10 Office Visit 05/27/2016 3:37p [facility], Adam Victor, 86908 I63.8 Hospitalists MFaby D46.9 I25.10 I10 Office Visit 05/26/2016 3:36p [facility], Adam Victor, 28023 I63.8 Hospitalists MAleksandarDAleksandar D46.9 I25.10 I10 Office Visit 05/25/2016 2:30p [facility], Leti Evans, 45395 I63.8 Hospitalists M.DAleksandar D46.9 I25.10 I10 Office Visit 05/24/2016 2:29p [facility] Leti Cristina, 81693 I63.8 Hospitalists M.DAleksandar D46.9 I25.10 I10 Office Visit 05/23/2016 8:35a [facility] Emeka Ross, 58921 I63.9 MD I10 I25.810 Z79.01 Office Visit 05/22/2016 2:11p [facility] [address] I63.8 Hospitalists D46.9 I25.10 I10 Office Visit 01/12/2016 10:00a [facility] Kayleigh Fernandes M.D. 10853 I69.398 Services Of [facility] I69.354 E78.5 F32.9 Office Visit 12/16/2015 11:45a [facility] [place] [address] I25.5 [facility] I69.398 I69.354 G47.33 I10 E78.5 I25.810 I25.2 I44.7 Office Visit 08/28/2015 10:00a [facility] Kayleigh Fernandes, 44142 I69.398 Bob I69.354 F32.4 Office Visit 07/22/2015 3:00p [facility] Coni Estevez, 03867 G47.33 Services Of Suresh BLEVINS RN, IRONWORKER FOREMAN-BC G47.10 Office Visit 06/19/2015 1:40p [facility] [place] [address] I25.5 [facility] G47.33 I69.398 I69.354 F32.9 I67.89 I10 E78.5 I25.810 I25.2 I44.7 R26.9 Office Visit 06/10/2015 10:30a [facility] Coni Estevez, 68539 G47.33 Services Of Suresh BLEVINS RN, IRONWORKER FOREMAN-BC Office Visit 05/05/2015 10:00a [facility] Kayleigh Fernandes, 11934 I69.398 Bob I69.354 F32.9 Office Visit 03/11/2015 11:20a [facility] [place] [address] I25.5 [facility] FACC I25.9 G47.33 I69.398 I69.354 I67.89 I10 E78.5 Office Visit 01/30/2015 12:45p [facility] Timmy Lobo, 37242 G47.33 Services Of Back Pad Inspector M.D. I69.398 Office Visit 01/28/2015 10:20a [facility] [address] I25.5 [facility] FACC I69.398 I69.354 G47.33 I67.89 I25.9 I10 I25.810 I35.0 E78.5 I25.2 I44.7 Office Visit 01/24/2015 4:08p [facility] [address] R26.9 I63.8 Office Visit 01/24/2015 4:17p [facility], Terri Self, N.P. 66987 I63.8 Hospitalists I25.10 I10 F32.9 Office Visit 01/23/2015 4:07p [facility] [address] R26.9 Office Visit 01/23/2015 4:17p [facility], Terri Self, N.P. 85656 I63.8 Hospitalists I25.10 I10 F32.9 Office Visit 01/17/2015 10:30a [facility] Kayleigh Fernandes, 43558 I69.354 M.DAleksandar Office Visit 12/24/2014 9:00a [facility] MARIANN Palafox 54359 G47.9 I67.89 I25.9 E78.5 I10 I25.5 I25.810 I06.2 Office Visit 11/28/2014 10:00a [facility] Timmy Lobo, 96402 G47.9 Services Of Suresh M.DAleksandar I10 Office Visit 10/23/2014 11:00a [facility] Kayleigh Fernandes 53573 434.91 MAleksandarDAleksandar 311 Office Visit 10/15/2014 9:13a [facility], MEGHANA 48289 434.91 Assoc, Hospitalists 414.00 530.81 Office Visit 10/14/2014 9[facility] [place] 24037 434.91 Assoc, Hospitalists 530.81 414.00 Office Visit 10/14/2014 11:46a [facility] [address] 434.91 Office Visit 10/03/2014 3:00p [facility] Kayleigh Fernandes, 38327 436 Of Back Pad Inspector M.DAleksandar 435.8 Office Visit 10/02/2014 4:00p [facility] Hakeemtaybblayne SAleksandar Gurrola, 07655 424.1 M.DAleksandar 414.02 414.9 425.4 Office Visit 09/18/2014 2:15p [facility] Kayleigh Fernandes M.D. 10873 435.8 Services Of Back Pad Inspector 434.91 Office Visit 06/03/2014 11:00a [facility] Kayleigh Fernandes, 60128 434.91 M.DAleksandar 438.0 311 781.2 Office Visit 05/06/2014 2:20p [facility] Hakeemtaybeh SAleksandar Gurrola, 61412 414.01 M.DAleksandar 414.9 414.0 V45.81 424.1 Office Visit 04/18/2014 9:30a [facility] Qutaybeh SAleksandar Gurrola, 41152 414.01 M.D. 794.31 Office Visit 04/03/2014 2:00p [facility] Kayleigh Fernandes M.D. 31744 434.91 Services Of Back Pad Inspector 438.0 311 Office Visit 02/26/2014 2:20p [facility] Qutaybeh SAleksandar Gurrola, 57155 434.91 M.DAleksandar 414.9 272.4 414.0 V45.81 786.05 401.1 Office Visit 01/16/2014 3:45p [facility] Kayleigh Fernandes M.D. 68870 434.91 Services Of Back Pad Inspector 414.9 438.0 Office Visit 10/31/2013 10:38a [facility], Momo Eddy, 35594 414.9 Hospitalists MAleksandarD. 272.4 434.91 Office Visit 10/30/2013 10:36a [facility], Momo Eddy, 36514 414.9 Hospitalists M.DAleksandar 414.9 272.4 272.4 434.91 434.91 Office Visit 10/29/2013 10:35a [facility],pc Terri Self N.P. 26573 414.9 Hospitalists 272.4 434.91 Office Visit 10/29/2013 11:48a [facility] Kayleigh Fernandes M.D. 21265 434.91 Services Of Back Pad Inspector 433.10 Office Visit 10/28/2013 10:35a [facility], Terri Self N.P. 03795 414.9 Hospitalists 272.4 434.91 Office Visit 10/28/2013 11:47a [facility] Kayleigh Fernandes 60220 434.91 Services Of Back Pad Inspector M.D. Office Visit 10/27/2013 10:34a [facility], Terri Self N.P. 58737 414.9 Hospitalists 272.4 434.91 Office Visit 10/27/2013 11:46a [facility] Danette Castellon, 80347 434.91 Services Of Back Pad Inspector M.D. Office Visit 10/26/2013 11:41a [facility] Kayleigh Fernandes M.D. 50612 434.91 Services Of Back Pad Inspector Office Visit 10/26/2013 10:33a [facility] Terri Self N.P. 23254 414.9 Assoc, Hospitalists 272.4 434.91 Office Visit 10/25/2013 10:32a [facility], Terri Self N.P. 67594 414.9 Hospitalists 272.4 434.91 Office Visit 10/25/2013 11:28a [facility] Kayleigh Fernandes 96075 434.91 Services Of Back Pad Inspector M.D. Office Visit 10/24/2013 10:30a [facility], Manjinder Perez, 30228 414.9 Hospitalists N.P. 272.4 434.91 Office Visit 10/24/2013 11:24a [facility] Ravi Pisano, 66379 434.91 Services Of Back Pad Inspector M.D. Office Visit 04/23/2013 2:30p [facility] Kayleigh Fernandes M.D. 68255 438.0 Services Of [facility] 724.02 Office Visit 01/24/2013 3:30p [facility] Kayleigh Fernandes M.D. 29938 438.0 Services Of Back Pad Inspector 724.02 Office Visit 08/03/2012 3:00p [facility] Kayleigh Fernandes M.D. 66814 438.0 Services [facility] Office Visit 04/29/2012 3:36p [facility], Zander King M.D. 49904 780.2 Hospitalists 414.00 272.2 238.75 Office Visit 04/28/2012 3:36p [facility], Manjinder Perez 24021 780.2 Hospitalists N.P. 414.00 272.2 238.75 Office Visit 04/24/2012 11:15a [facility] Kayleigh Fernandes M.D. 06812 438.0 Services [facility] Office Visit 01/17/2012 3:30p [facility] Kayleigh Fernandes M.D. 03884 434.91 Services Of [facility] Office Visit 11/15/2011 8:30a [facility] Kayleigh Fernandes M.D. 20468 434.91 Services Of [facility] 434.91 780.2 Office Visit 10/31/2011 1:47p [facility] Kayleigh Fernandes M.D. 19929 434.91 Services [facility] 434.91 Office Visit 10/30/2011 4:13p [facility] Kayleigh Fernandes M.D. 74935 434.91 Services [facility] 434.91 Plan of Care Future Appointment(s):10/28/2017 11:00 am - Kayleigh Fernandes M.D. at [facility]06/15/2017 - Kayleigh Fernandes M.D.G81.94 Hemiplegia, unspecified affecting left nondominant sideNew Therapy:Physical ZqopllxT44.4 Neurologic neglect cobjaemmL72.84 Mild cognitive impairment, so statedNew Labs: Vitamin B12 And Folate SerumTSH (Thyroid Stim Horm)Free T4 (Free Thyroxine)New Orders:EEG, RoutineNew Therapy:Physical TherapyFollow up:3 - 4 month (45 + min) M54.5 Low back painNew Therapy:Physical Therapy
[2017-06-18] MEDS ORDERED: Levofloxacin 750 MG IVPREMIX(* 750 MG/150 ML BAG IVPB ONE (22:50)
--- NOTE | 2017-06-18 23:19 | ED ---
Savanah Powers Emily, scribed for Debbie Perdomo MD on 06/18/17 at 2010 . HPI Febrile Illness - HPI Summary HPI Summary: This patient is a 77 year old M BIBA to [facility] accompanied by with a chief complaint of fever that began on 06/16/2017. reports that pt had a fever of 101 Fahrenheit on 06/16/2017. The patient rates the pain 0/10 in severity. Symptoms aggravated by nothing. Symptoms alleviated by Tylenol. Patient reports vomiting and fatigue. Patient denies abd pain. reports that pt vomited around 1300 on 06/16/2017, and then developed a fever at around 1800 that day. reports that pt has had approximately 12 strokes. reports that neurologist reported patient has had changes with his memory on 06/15/2017. - History of Current Complaint Chief Complaint: EDFever Time Seen by Provider: 06/18/17 19:49 Hx Obtained From: Patient, Family/Database Reporting Consultant Onset/Duration: Started Days Ago, Still Present Timing: Constant Initial Severity: Mild Current Severity: Mild Pain Intensity: 0 Pain Scale Used: 0-10 Numeric Associated Signs and Symptoms: Other: - Positive vomiting and fatigue. Negative abd pain - Additional Pertinent History Primary Care Physician: [id number] - Allergy/Home Medications Allergies/Adverse Reactions: Allergies Allergy/AdvReac Type Severity Reaction Status Date / Time MS Shellfish Allergy Allergy Severe Airway Verified 08/25/16 10:30 [Shellfish Allergy] Obstruction MS Vancomycin [Vancomycin] Allergy Intermediate Hives Verified 12/29/16 21:55 MS Lactose Intolerance (GI) Allergy GI Upset Verified 08/25/16 10:30 [Lactose Intolerance (GI)] MS Pollen Extract Allergy See Comment Verified 12/30/16 11:10 [Pollen Extract] Tree Nuts Allergy Airway Verified 12/30/16 11:10 Obstruction walnuts Allergy Intermediate Airway Uncoded 08/25/16 10:30 Obstruction tree pollen Allergy Sneezing Uncoded 08/25/16 10:32 PMH/Surg Hx/FS Hx/Imm Hx Previously Healthy: No Endocrine/Hematology History: Reports: Hx Anticoagulant Therapy, Hx Bone Marrow Disease - myelodysplastic syndrome Denies: Hx Diabetes Cardiovascular History: Reports: Hx Angina, Hx Coronary Artery Disease, Hx Hypercholesterolemia, Hx Hypertension, Hx Syncope, Other Cardiovascular Problems /Disorders - LBBB Denies: Hx Congestive Heart Failure, Hx Pacemaker/ICD, Hx Peripheral Vascular Disease Respiratory History: Reports: Hx Sleep Apnea - pt states this may be new to him , unsure. Denies: Hx Asthma, Hx Chronic Obstructive Pulmonary Disease (COPD) GI History: Reports: Hx Gastroesophageal Reflux Disease, Other GI Disorders - GERD History: Reports: Hx Benign Prostatic Hyperplasia, Hx Kidney Stones, Hx Renal Disease - KIDNEY STONES, Other Problems/Disorders - KIDNEY STONES,BPH Denies: Hx Dialysis Musculoskeletal History: Reports: Hx Back Problems, Other Musculoskeletal History - Lumbar spinal stenosis Denies: Hx Osteoporosis Sensory History: Reports: Hx Contacts or Glasses, Hx Glaucoma Denies: Hx Cataracts, Hx Hearing Aid Opthamlomology History: Reports: Hx Contacts or Glasses, Hx Glaucoma Denies: Hx Cataracts Neurological History: Reports: Hx Dementia, Hx Transient Ischemic Attacks (TIA) , Other Neuro Impairments/Disorders - lumbar stenosis Denies: Hx Headaches, Hx Seizures Psychiatric History: Reports: Hx Depression Denies: Hx Anxiety, Hx Panic Disorder - Cancer History Cancer Type, 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 QUADRUPAL BYPASS-TONSILS,left femur - Immunization History Date of Tetanus Vaccine: UTD Date of Influenza Vaccine: UTD Infectious Disease History: No Infectious Disease History: Reports: Hx Shingles - 2009 Denies: Traveled Outside the [place] in Last 30 Days - Family History Known Family History: Positive: Cardiac Disease - Social History Occupation: Employed Full-time Lives: Assisted Living Alcohol Use: None Alcohol Amount: 1 drink per week Hx Substance Use: No Substance Use Type: Reports: None Hx Tobacco Use: Yes Smoking Status (MU): Former Smoker Type: Cigarettes Have You Smoked in the Last Year: No Review of Systems Positive: Fever Positive: Vomiting. Negative: Abdominal Pain All Other Systems Reviewed And Are Negative: Yes Physical Exam - Summary Physical Exam Summary: VITAL SIGNS: Reviewed. GENERAL: ~Patient is a well-developed and nourished male who is lying comfortable in the stretcher. Patient is not in any acute respiratory distress. HEAD AND FACE: No signs of trauma. No ecchymosis, hematomas or skull depressions. No sinus tenderness. EYES: PERRLA, EOMI x 2, No injected conjunctiva, no nystagmus. EARS: Hearing grossly intact. Ear canals and tympanic membranes are within normal limits. MOUTH: Oropharynx within normal limits. NECK: Supple, trachea is midline, no adenopathy, no JVD, no carotid bruit, no c- spine tenderness, neck with full ROM. CHEST: Symmetric, no tenderness at palpation LUNGS: Clear to auscultation bilaterally. No wheezing or crackles. CVS: Regular rate and rhythm, S1 and S2 present, no murmurs or gallops appreciated. ABDOMEN: Soft, non-tender. No signs of distention. No rebound no guarding, and no masses palpated. Bowel sounds are normal. EXTREMITIES: FROM in all major joints, no edema, no cyanosis or clubbing. NEURO: Alert and oriented x 3. No acute neurological deficits. Speech is normal and follows commands. Left sided facial droop and left-sided hemiparesis, which are old SKIN: Dry and warm Triage Information Reviewed: Yes Vital Signs On Initial Exam: Initial Vitals Pulse BP Pulse Ox 71 111/59 95 06/18/17 19:44 06/18/17 19:44 06/18/17 19:44 Vital Signs Reviewed: Yes Diagnostics - Vital Signs Vital Signs Temp Pulse Resp BP Pulse Ox 06/18/17 19:45 98.8 F 69 15 111/59 97 06/18/17 19:44 71 111/59 95 - Laboratory Result Diagrams: 06/18/17 21:22 06/18/17 21:22 Lab Statement: Any lab studies that have been ordered have been reviewed, and results considered in the medical decision making process. - Radiology CXR Radiology Interpretation Completed By: Radiologist - CXR reveals, per radiologist, post surgical changes, no evidence for acute findings. ED physician has reviewed this radiology report. - EKG 2019 Cardiac Rate: NL EKG Rhythm: Sinus Rhythm - 70 BPM EKG Interpretation: Q waves in inferior leads. 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 Pt has a UTI. Admit for IV antibiotics - Diagnoses Provider Diagnoses: UTI (urinary tract infection) - Provider Notifications Discussed Care Of Patient With: Promise Yepez Time Discussed With Above Provider: 23:08 Instructed by Provider To: Other - Consult with Dr. Yepez (hospitalist) at 2308. She agrees to admit pt for further evaluation. Discharge - Sign-Out/Discharge Documenting (check all that apply): Discharge/Admit/Transfer - Admit to [facility] - Discharge Plan Condition: Stable Disposition: ADMITTED TO [facility] Referrals: Mattie Drew MD [Primary Care Provider] - The documentation as recorded by the Savanah nieves Emily accurately reflects the service I personally performed and the decisions made by , Debbie Perdomo MD.
[2017-06-19] MEDS ORDERED: Saline NASAL SPRAY 0.65%* BTL BOTH NARES PRN (00:23)
[2017-06-19] MEDS ORDERED: oxyCODONE/Acetamin 5/325 MG* TAB PO PRN (00:23)
[2017-06-19] MEDS ORDERED: Ondansetron TAB* 4 MG PO PRN (00:23)
[2017-06-19] MEDS ORDERED: NS 0.9% 1000 ML* 1,000 ML IV SCH (00:30)
--- NOTE | 2017-06-19 02:34 | HP ---
CC: Dr. Drew * HISTORY AND PHYSICAL: DATE OF ADMISSION: 06/19/17 PRIMARY CARE PROVIDER: Dr. Drew. CHIEF COMPLAINT: Fever. HISTORY OF PRESENT ILLNESS: Mr. Cramer is a 77-year-old male who has a history of significant stroke approximately 3 years ago with resultant significant left-sided weakness, who presents to the emergency room with complaints of fever. The patient's provides the bulk of the history. She states that on this past , he was taken to a lecture by friend and suddenly while at the lecture at approximately at 04:15 p.m., he vomited. His returned home from [place] from an appointment at approximately 6 p.m. and found him markedly flushed. The patient was identified to have a fever at that time. The patient has been receiving [id number] Tylenol and despite this, he has been having intermittent fevers. The patient denies any significant cough or sputum production. He denies any dysuria. He denies any skin breakdown, though his states that he would not necessarily know that. She does state that intermittently he will, however, complain of severe irritation within the groin and she has noted it at times to be erythematous. The patient denies any sick contacts. The patient had another episode of vomiting on the morning of admission. There has been no further vomiting. He did have a dental cleaning on Tuesday prior to admission. PAST MEDICAL HISTORY: 1. Myelodysplastic syndrome. 2. 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 3. Mild cognitive impairment secondary to multiple CVAs. 4. Hypertension. 5. Hyperlipidemia. 6. MARY, utilizing BiPAP with sleep. 7. GERD. 8. Coronary artery disease. PAST SURGICAL HISTORY: 1. Left hip fracture repair, September 2016. 2. CABG. ALLERGIES: SHELLFISH, WALNUTS, and LACTOSE INTOLERANCE. MEDICATIONS: 1. Coumadin 2.5 mg tabs 2 tabs p.o. Tuesday and Tuesday, 1 tab p.o. Tuesday, Tuesday, , Tuesday, and Tuesday. 2. Spironolactone 12.5 mg p.o. q.p.m. 3. Vitamin B12 1000 mcg p.o. daily. 4. Carvedilol 1.5625 mg p.o. b.i.d. 5. Senna 8.6 mg 2 tabs p.o. q.h.s. 6. Travatan 1 drop to both eyes at bedtime. 7. Colace 200 mg p.o. daily. 8. MiraLAX 17 g p.o. daily. 9. Sertraline 150 mg p.o. daily. 10. Aspirin 81 mg p.o. daily. 11. Lipitor 10 mg p.o. q.h.s. 12. Omeprazole 20 mg p.o. daily. 13. Vitamin D3 1000 units p.o. daily. 14. Multivitamin 1 tab p.o. daily. 15. Tylenol 650 mg p.o. b.i.d. 16. Ketoconazole cream applied to face Tuesday and Tuesday. 17. Nystatin 1 application topical twice daily to groin. 18. Zofran 4 mg p.o. q.8 hours p.r.n. nausea. 19. Dulcolax suppository 10 mg WA daily if no BM for 3 days. 20. MOM 30 mL p.o. daily p.r.n., no BM for greater than 3 days. 21. Percocet 5/325 one tab p.o. q.4 hours p.r.n. pain. 22. Flonase 2 squirts to each nostril daily as needed for congestion. 23. Nasal saline spray 1 spray to each nostril every 4 hours as needed for congestion. FAMILY HISTORY: Mom of cancer of unknown type and father had [place] at the age of 57. SOCIAL HISTORY: The patient smoked for approximately 1 year in his late 20s. He drinks alcohol on occasion. 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 He is . He has 2 children from his first marriage. His current , [place], is his healthcare proxy. REVIEW OF SYSTEMS: A complete 11-system review of systems was obtained. Pertinent positives and negatives as per HPI and in addition, the patient does complain of chronic constipation and dysphagia and depression. PHYSICAL EXAMINATION GENERAL: The patient is a well-developed elderly male, seen sitting up in the stretcher, in no acute distress. VITAL SIGNS: Blood pressure 140/68, pulse 71, respirations 15, temp 98.8, O2 sat 97% on room air. HEENT: Pupils are equal and round. Extraocular muscles intact. The patient has injected sclerae bilaterally. There is no drainage. Oropharynx is clear. Oral mucosa is moist. There is no submandibular, cervical, or supraclavicular adenopathy. Thyroid is not enlarged. No thyroid nodules are noted. PULMONARY: Lungs are clear to auscultation bilaterally. CARDIAC: Normal S1, S2. Regular rate and rhythm. There is 1 to 2/6 systolic murmur heard best at the right upper sternal border. There is no lower extremity edema. ABDOMEN: Bowel sounds present. Abdomen is soft, nontender, nondistended. MUSCULOSKELETAL: There is no cyanosis or clubbing of the digits. Range of motion of the left upper and lower extremities limited due to history of stroke. NEUROLOGIC: Cranial nerves II through XII are grossly intact with a slight left facial droop. Speech is clear. Sensation is intact to light touch throughout. Strength is normal in the right upper and lower extremities limited in left upper and lower extremities due to prior stroke. SKIN: Warm and dry. There are no rashes. The groin does not appear to be irritated. PSYCH: The patient is alert. He is oriented to situation. He is slightly confused. DIAGNOSTIC STUDIES/LAB DATA: WBC 3.8, hemoglobin 10.3, hematocrit 31, platelets 89, INR of 1.70. Sodium 135, potassium 4.2, chloride 100, CO2 28, BUN 19, creatinine 0.97, glucose 114, lactic acid 1.1, calcium 9.2, bilirubin 0.4, AST 18, AST 13, alk phos 91, troponin 0.01, CRP 19.21, albumin 3.7. Urinalysis reveals a specific gravity of 1.028 with 1+ blood, 3+ leukocyte esterase, 3+ wbc's, 3+ rbc's, 1+ bacteria. Influenza A and B negative. EKG reveals normal sinus rhythm. There are biphasic T waves in lead III, flat T waves in V6, mildly different from EKGs obtained in 2017 in that the T-wave is not flat in V6 previously. T-wave interpretation is unable to be made in lead III previously. Chest x-ray: Postsurgical changes are noted. There is no evidence for acute finding. ASSESSMENT AND PLAN: Mr. Cramer is a 77-year-old male who has a history of prior stroke with residual left-sided weakness, mild cognitive impairment, obstructive sleep apnea, hypertension, and hyperlipidemia, who presents to the emergency room with complaints of fever. 1. Fever. I suspect the cause is urinary tract infection given his abnormal urinalysis. He is receiving Levaquin in the emergency room. There are no prior urine cultures to go on. I will change to ceftriaxone tomorrow to continue treating for possible urinary tract infection. Differential diagnoses would also include viral illness. We will monitor for any clear causes of infection. Blood cultures have been obtained. This will be specifically important given he did have a dental cleaning prior to his fever beginning. 2. Hypertension. Blood pressure is under acceptable control. We will continue on Coreg. 3. History of prior strokes, continue Coumadin. His INR is subtherapeutic. We will give 5 mg on Tuesday, but then resume his usual regimen, though his INR will need to be monitored. 4. Depression. Continue sertraline. 5. Constipation. Continue home bowel regimen. 6. Obstructive sleep apnea. We will resume BiPAP at bedtime. 7. DVT prophylaxis. According to the Adult Thrombosis Prophylaxis Risk Factor Assessment Guide, the patient has a total risk factor score of 4 making him high risk. Heparin will be initiated while his INR is subtherapeutic. 8. Code status is DNR. TIME SPENT: 65 minutes were spent admitting this patient. [id number]/CORINE #: [id number] DIEGO
[2017-06-19] MEDS: Heparin VIAL(*) 5000 UNITS/ML VIAL (FIVE THOUSAND) SUBCUT SCH ×3 (05:40→22:14)
[2017-06-19] MEDS: Nystatin TOP POWDER* 15 GM BTL TOPICAL SCH ×2 (08:41→22:15)
[2017-06-19] MEDS: Polyethylene Glycol 3350* 17 GM PACKET PO SCH (08:44)
[2017-06-19] MEDS: Cholecalciferol TAB* 1000 UNITS PO SCH (08:45)
[2017-06-19] MEDS: Acetaminophen TAB* 325 MG PO SCH ×2 (08:45→22:11)
[2017-06-19] MEDS: Docusate CAP* 100 MG PO SCH (08:45)
[2017-06-19] MEDS: Sertraline* 50 MG TAB PO SCH (08:46)
[2017-06-19] MEDS: Multivitamins/Minerals TAB PO SCH (08:46)
[2017-06-19] MEDS: Omeprazole CAP* 20 MG PO SCH (08:47)
[2017-06-19] MEDS: Carvedilol TAB* 3.125 MG PO SCH ×2 (08:47→22:13)
[2017-06-19] MEDS: Aspirin 81 mg CHEW TAB* 81 MG TAB.CHEW PO SCH (08:47)
[2017-06-19] MEDS: Cyanocobalamin TAB* 500 MCG PO SCH (08:47)
--- NOTE | 2017-06-19 12:47 | PN ---
Hospitalist Progress Note Date of Service: 06/19/17 HOSPITALIST ADDENDUM Patient seen and examined at bedside. Care reviewed and d/w April Singh RN. Case also d/w his PCP Dr. Drew. Mr Cramer is a 77yo M with PMH of MDS, s/p CVA with left hemiparesis, mild cognitive impairment after CVA, HTN, HLD, MARY on BiPAP, GERD, CAD, admission for fever and vomiting felt to be secondary to gastroenteritis/aspiration pneumonia, who presented to ED with fever and vomiting. He has had intermittent fevers since December, receiving Tylenol at [facility], but no specific etiology was found. H&P, labs reviewed. Will pursue w/u for fever of unknown origin, including malignancy and rheum conditions.
--- NOTE | 2017-06-19 15:48 | RAD ---
INDICATION: Fever of unknown origin. COMPARISON: Comparison is made with a prior CT of the chest from August 26, [address] of the abdomen and pelvis from December 29, 2016. TECHNIQUE: A CT scan of the chest, abdomen and pelvis was performed without intravenous or oral contrast. Contiguous axial sections were obtained from the lung apices through the symphysis pubis. Images were reconstructed in the coronal and sagittal planes. FINDINGS: There are dependent bilateral patchy infiltrates in both lower lobes. No pleural effusion is present. No significant enlarged mediastinal or hilar lymph nodes are seen. The heart is mildly enlarged. There are coronary artery calcifications present. The thoracic aorta is normal in caliber. There is mild calcific plaque present. The liver and spleen are normal in size. No significant focal hepatic abnormality is seen on this noncontrast study. There are gallstones present. The gallbladder is not distended. No gallbladder wall thickening is seen. There are splenic calcifications suggestive of old granulomatous disease. The pancreas appears to be within normal limits The adrenal glands and kidneys are normal in size. There is a small 2 mm nonobstructing calculus in the lower pole of the right kidney. There is a fluid density lesion arising from the lower pole of the left kidney measuring 4.0 cm in size most consistent with a cyst on this noncontrast study. No hydronephrosis is seen. No bladder wall thickening is noted. The aorta is normal in caliber and there is moderate calcific plaque present. No significant enlarged retroperitoneal lymph nodes are seen. The stomach, small and large bowel appear nondistended. The appendix is not visualized. There are scattered diverticuli within the colon which are most prominent and moderate in degree in the sigmoid colon. There is no evidence for diverticulitis or colitis. No free intraperitoneal air or fluid is seen. No localized fluid collection or abscess is seen. No significant focal osseous abnormality is seen. IMPRESSION: 1. BILATERAL DEPENDENT LOWER LOBE INFILTRATES. 2. NO EVIDENCE FOR INTRA-ABDOMINAL FLUID COLLECTION OR ABSCESS. 3. CHOLELITHIASIS. 4. NONOBSTRUCTING RIGHT RENAL CALCULUS.
--- NOTE | 2017-06-19 17:04 | RAD ---
INDICATION: Fever of unknown origin, immobility. COMPARISON: There are no prior studies available for comparison. TECHNIQUE: Multiple real-time, color flow and Doppler tracings of both lower extremities were obtained. FINDINGS: The common femoral, femoral, profunda femoral and popliteal veins all demonstrate normal compressibility, augmentation with compression and phasic response with respiration. The posterior tibial and peroneal veins demonstrate normal compressibility and augmentation with compression. IMPRESSION: NO EVIDENCE FOR DEEP VENOUS THROMBOSIS.
[2017-06-19] MEDS: Spironolactone TAB* 25 MG PO SCH (17:21)
[2017-06-19] MEDS ORDERED: CMCS:Melatonin (NF) 3 MG TAB PO PRN (21:19)
[2017-06-19] MEDS: Senna TAB PO SCH (22:10)
[2017-06-19] MEDS: Atorvastatin* 10 MG TAB PO SCH (22:12)
[2017-06-19] MEDS: CMCS:Ketoconazole 2 % CREAM (NF) 30 GM TUBE TOPICAL SCH (22:14)
[2017-06-19] MEDS: Latanoprost 0.005%* 2.5 ml BTL BOTH EYES SCH (22:14)
[2017-06-20] MEDS: cefTRIAXone(*) 1 GM in NS 0.9% 50 ML* 50 ML IVPB SCH (01:06)
[2017-06-20] MEDS: Heparin VIAL(*) 5000 UNITS/ML VIAL (FIVE THOUSAND) SUBCUT SCH ×3 (05:49→22:18)
[2017-06-20] MEDS: Polyethylene Glycol 3350* 17 GM PACKET PO SCH (11:45)
[2017-06-20] MEDS: Cholecalciferol TAB* 1000 UNITS PO SCH (11:47)
[2017-06-20] MEDS: Cyanocobalamin TAB* 500 MCG PO SCH (11:47)
[2017-06-20] MEDS: Acetaminophen TAB* 325 MG PO SCH ×2 (11:47→21:00)
[2017-06-20] MEDS: Carvedilol TAB* 3.125 MG PO SCH ×2 (11:48→21:02)
[2017-06-20] MEDS: Multivitamins/Minerals TAB PO SCH (11:48)
[2017-06-20] MEDS: Docusate CAP* 100 MG PO SCH (11:48)
[2017-06-20] MEDS: Aspirin 81 mg CHEW TAB* 81 MG TAB.CHEW PO SCH (11:48)
[2017-06-20] MEDS: Sertraline* 50 MG TAB PO SCH (11:48)
[2017-06-20] MEDS: Nystatin TOP POWDER* 15 GM BTL TOPICAL SCH ×2 (11:54→21:05)
[2017-06-20] MEDS: Omeprazole CAP* 20 MG PO SCH (11:55)
--- NOTE | 2017-06-20 15:27 | PN ---
Subjective Date of Service: 06/20/17 Interval History: HOSPITALIST PROGRESS NOTE Patient seen and examined at bedside. Care reviewed an d/w Leonarda Heard RN. He offers no complaints today, pleasantly confused. Family History: Unchanged from Admission Social History: Unchanged from Admission Past Medical History: Unchanged from Admission Objective Active Medications: Acetaminophen (Tylenol Tab*) 650 mg PO BID [facility] Last Admin: 06/20/17 11:47 Dose: 650 mg Aspirin (Aspirin 81 Mg Chew Tab*) 81 mg PO DAILY [facility] Last Admin: 06/20/17 11:48 Dose: 81 mg Atorvastatin Calcium (Lipitor*) 10 mg PO 2100 [facility] Last Admin: 06/19/17 22:12 Dose: 10 mg Carvedilol (Coreg Tab*) 1.5625 mg PO BID [facility] Last Admin: 06/20/17 11:48 Dose: 1.5625 mg Cholecalciferol (Vitamin D Tab*) 1,000 units PO DAILY [facility] Last Admin: 06/20/17 11:47 Dose: 1,000 units Cyanocobalamin (Vitamin B12 Tab*) 1,000 mcg PO DAILY [facility] Last Admin: 06/20/17 11:47 Dose: 1,000 mcg Docusate Sodium (Colace Cap*) 200 mg PO DAILY [facility] Last Admin: 06/20/17 11:48 Dose: 200 mg Heparin Sodium (Porcine) (Heparin Vial(*)) 5,000 units SUBCUT Q8HR [facility] Last Admin: 06/20/17 14:08 Dose: 5,000 units Ceftriaxone Sodium 1 gm/ (Sodium Chloride) 50 mls @ 200 mls/hr IVPB Q24H [facility] Last Admin: 06/20/17 01:06 Dose: 200 mls/hr Ketoconazole (Nizoral 2% Cream (Nf)) 1 applic TOPICAL BEDTIME [place] PRN Reason: Protocol Last Admin: 06/19/17 22:14 Dose: 1 applic Latanoprost (Xalatan 0.005%*) 1 drop BOTH EYES BEDTIME [place]OOK PRN Reason: Protocol Last Admin: 06/19/17 22:14 Dose: 1 drop Melatonin (Melatonin (Nf)) 3 mg PO BEDTIME PRN PRN Reason: SLEEP Multivitamins/Minerals (Theragran/Minerals Tab*) 1 tab PO DAILY [facility] Last Admin: 06/20/17 11:48 Dose: 1 tab Nystatin (Nystatin Top Powder*) 1 applic TOPICAL BID [facility] Last Admin: 06/20/17 11:54 Dose: 1 applic Omeprazole (Prilosec Cap*) 20 mg PO DAILY@0730 [facility] Last Admin: 06/20/17 11:55 Dose: Not Given Ondansetron HCl (Zofran Tab*) 4 mg PO Q8H PRN PRN Reason: NAUSEA Oxycodone/Acetaminophen (Percocet 5/325 Tab*) 1 tab PO Q4HR PRN PRN Reason: PAIN Polyethylene Glycol/Electrolytes (Miralax*) 17 gm PO DAILY [facility] Last Admin: 06/20/17 11:45 Dose: 17 gm Senna (Senokot Tab*) 2 tab PO BEDTIME [facility] Last Admin: 06/19/17 22:10 Dose: 2 tab Sertraline HCl (Zoloft*) 150 mg PO DAILY [facility] Last Admin: 06/20/17 11:48 Dose: 150 mg Sodium Chloride (Sodium Chloride 0.65% Nasal [place]*) 1 spray BOTH NARES Q4H PRN PRN Reason: CONGESTION Last Admin: 06/19/17 08:43 Dose: 1 spray Spironolactone (Aldactone Tab*) 12.5 mg PO QPM [facility] Last Admin: 06/19/17 17:21 Dose: 12.5 mg Vital Signs - 8 hr 06/20/17 07:40 Respiratory 18 Rate Oxygen Devices in Use Now: None Appearance: Elderly gentleman sitting up in bed in [facility]. Eyes: No Scleral Icterus Ears/Nose/Mouth/Throat: Mucous Membranes Moist Neck: Trachea Midline Respiratory: Symmetrical Chest Expansion and Respiratory Effort, Clear to Auscultation Cardiovascular: RRR - Normal S1 and S2 Abdominal: NL Sounds; No Tenderness; No Distention Neurological: - - AAOx2 (self, hospital), left hemiparesis Result Diagrams: 06/18/17 21:22 06/18/17 21:22 Assess/Plan/Problems-Billing Assessment: Mr. Cramer is a 77yo M with PMH of MDS, multiple CVAs with residual left hemiparesis, mild cognitive impairment secondary to CVA, HTN, HLD, MARY on BiPAP , GERD, CAD s/p CABG, who presented to ED with fever and vomiting. - Patient Problems (1) Fever of unknown origin Comment: - D/w Dr. Drew - patient has had intermittent fevers since December last year with no clear infectious source documented. - CT chest/abd/pelvis negative. - W/u for rheumatological conditions sent. - Cultures show no growth so far. (2) UTI (urinary tract infection) Comment: - Urine was dirty - follow culture. - Continue Ceftriaxone for now. (3) HTN (hypertension) Comment: - Controlled. - Continue Coreg and Aldactone. (4) Cerebrovascular accident Comment: - Continue Warfarin and monitor INR. - D/w - states he's being w/u for seizures as outpatient - will request Neuro consult. (5) Vomiting Comment: - This also seems to be a recurrent issue. - Check gastric emptying study. (6) DVT prophylaxis Comment: - Continue Warfarin and SQ heparin until INR is therapeutic. (7) Full code status Status and Disposition: Inpatient for management of FUO. called and updated.
[2017-06-20] MEDS: Spironolactone TAB* 25 MG PO SCH (16:23)
[2017-06-20 17:06] LABS: INR 1.28 (0.77-1.02)
--- NOTE | 2017-06-20 20:14 | CONS ---
CC: Dr. Fernandes; Dr. Drew * NEUROLOGY CONSULTATION: DATE OF CONSULT: 06/20/17 HOSPITALIST: Dr. Mariscal. LOCATION: He is an inpatient in room 418. CHIEF COMPLAINT: Fever, history of strokes, question of seizures. 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 I had seen him previously in the hospital last year as well as other visits prior to that. He has been on chronic anticoagulation therapy because of recurrent strokes of unclear pathoetiology. According to admission notes, he went to a lecture with a friend and ended up vomiting. He was flushed when his came home from an errand and was found to have a fever. He was brought into the hospital and admitted. He has not had any further vomiting and was started on ceftriaxone. He has had a very low grade fever at one point since he has been here, but otherwise he has been afebrile. His laboratory studies have been notable for urinalysis with 1+ protein, 1+ blood, 3+ leukocyte esterase, 3+ white blood cells, 1+ bacteria. So far, urine culture from is positive for Proteus mirabilis with greater than 100,000 colonies, sensitivities still pending. I reviewed Dr. Fernandes's recent outpatient note from 06/15/17. An EEG was ordered because of a question of seizures with some of his transient neurological episodes in the past. PAST MEDICAL HISTORY: Otherwise notable for myelodysplastic syndrome, mild cognitive impairment from his prior strokes, hypertension, hyperlipidemia, obstructive sleep apnea on BiPAP, coronary artery disease, hip fracture and repair. He has had coronary artery bypass grafting. MEDICATIONS: On admission consist of: 1. Coumadin. 2. Spironolactone. 3. Vitamin B12 orally. 4. Carvedilol b.i.d. 5. Sertraline 150 mg p.o. daily. 6. Aspirin 81 mg p.o. daily. 7. Atorvastatin 10 mg p.o. q.h.s. 8. Omeprazole 20 mg p.o. daily. 9. Zofran 4 mg p.o. q.8 hours p.r.n. nausea. 10. Percocet 5/325 one p.o. q.4 hours p.r.n. pain. ALLERGIES: He does not have any drug allergies. He is listed as having a SHELLFISH allergy and being lactose intolerant. REVIEW OF SYSTEMS: From the patient is somewhat unreliable. He tends to confabulate, said they had an EEG last night and that he saw Dr. Fernandes in the hospital a couple of days ago. He is aware of his left-sided weakness and left visual field defects, but denies any new neurological problems. He specifically denies headache, neck pain, or pain in his limbs currently. When asked whether or not he has episodes of amnesia or episodes of loss of awareness , he states "maybe." He denies nausea or abdominal pain today. He does not ambulate. He states he gets some physical therapy at [facility]. He denies new change in vision, but acknowledges his left hemianopsia. He does not feel short of breath and denies sore throat. PHYSICAL EXAM: Vital Signs: He is well nourished and well hydrated. Temperature most recently 98.7 orally, blood pressure 140/67, heart rate in the 70s and regular, respiratory rate 20, and oxygen saturation is 100% on room air. Heart: Irregular rhythm with a grade 1/6 systolic murmur in left lower sternal border. Cervical pulses are weakly felt and there are no bruits auscultated. Oral mucosa is moist and head is atraumatic. He has some postsurgical scars on his nose. Lungs: Clear anterolaterally. Neurologic: Pupils are equal, but a bit small at about 3 mm. They react to light at 2.5 mm. Eye movements suggest some diminished upward gaze. There may be mild ptosis of the right eye. He denies diplopia. He has a dense left homonymous hemianopsia. Facial sensation is notable for mild flattening of the left naso- labial fold. Palate and tongue appear normal and palate rises symmetrically. Tongue protrudes in the midline. Speech is clear. Facial sensation to light touch is symmetric. Motor exam reveals a spastic left hemiparesis with contractures. He has no voluntary movement of the left side. He has normal strength of the right arm and leg proximally and distally. Sensory exam is notable for diminished pin discrimination in the left leg and a little bit in the left forearm. Reflexes are brisk in the left arm and knee. Right arm and knee reflexes seem pretty normal and right ankle is trace. Right plantar is flexor. He is able to perform normal [id number] maneuver on the right. He is alert and oriented to person and place. He is a poor historian and tends to confabulate. Language is fluent. Attention and concentration are fair. He loses his train of thought at times and is somewhat tangential. LABORATORY DATA: Includes urinalysis described above. Chemistry profile is fairly unremarkable. A CBC notable for white blood cell count of 2.8 which is pretty similar to recent historical values. Hemoglobin is 10.3 and platelet count 89,000, both also similar to recent blood counts. IMPRESSION: Fever with perhaps some decline in mental status. There has been an ongoing question of whether or not he has episodic seizures. I have put in an order for EEG. I do not see any suggestion currently of a recurrent cerebro- vascular event. We recommend continuing warfarin and aspirin as before for now. I will follow up on him after his EEG is done. [id number]/[facility] #: [id number] [facility]
[2017-06-20] MEDS: Senna TAB PO SCH (21:01)
[2017-06-20] MEDS: Atorvastatin* 10 MG TAB PO SCH (21:03)
[2017-06-20] MEDS: Latanoprost 0.005%* 2.5 ml BTL BOTH EYES SCH (21:04)
[2017-06-20] MEDS: CMCS:Ketoconazole 2 % CREAM (NF) 30 GM TUBE TOPICAL SCH (21:04)
[2017-06-21] MEDS: cefTRIAXone(*) 1 GM in NS 0.9% 50 ML* 50 ML IVPB SCH (00:56)
[2017-06-21 03:38] VITALS: BP 156/68
[2017-06-21] MEDS: Heparin VIAL(*) 5000 UNITS/ML VIAL (FIVE THOUSAND) SUBCUT SCH (05:40)
[2017-06-21] MEDS ORDERED: Enoxaparin(*) 80 MG/0.8 ML SYR SUBCUT SCH (08:00)
--- NOTE | 2017-06-21 09:15 | PN ---
Subjective Date of Service: 06/21/17 Interval History: The patient feels well this am. Denies any new issues. I spoke with his nurse who notes no issues overnight. He denies any new neurologic symptoms. No reported seizure activity or transient neurologic changes. He is friendly but wants to go home as soon as possible. I reivewed his hospital workup to date. He has a history of stroke with dense left HP and homonymous HERNÁNDEZ. He is on chronic coumadin for recurrent strokes with no clear cause. EEG: Slow and disorganized but no epileptiform abnormalities. Family History: Unchanged from Admission Social History: Unchanged from Admission Past Medical History: Unchanged from Admission Objective Active Medications: Acetaminophen (Tylenol Tab*) 650 mg PO BID COUNTS INCLUDE 234 BEDS AT [facility] Last Admin: 06/20/17 21:00 Dose: 650 mg Aspirin (Aspirin 81 Mg Chew Tab*) 81 mg PO DAILY COUNTS INCLUDE 234 BEDS AT THE [facility] Last Admin: 06/20/17 11:48 Dose: 81 mg Atorvastatin Calcium (Lipitor*) 10 mg PO 2100 COUNTS INCLUDE 234 BEDS AT [facility] Last Admin: 06/20/17 21:03 Dose: 10 mg Carvedilol (Coreg Tab*) 1.5625 mg PO BID COUNTS INCLUDE 234 BEDS AT [facility] Last Admin: 06/20/17 21:02 Dose: 1.5625 mg Cholecalciferol (Vitamin D Tab*) 1,000 units PO DAILY COUNTS INCLUDE 234 BEDS AT [facility] Last Admin: 06/20/17 11:47 Dose: 1,000 units Cyanocobalamin (Vitamin B12 Tab*) 1,000 mcg PO DAILY COUNTS INCLUDE 234 BEDS AT [facility] Last Admin: 06/20/17 11:47 Dose: 1,000 mcg Docusate Sodium (Colace Cap*) 200 mg PO DAILY COUNTS INCLUDE 234 BEDS AT [facility] Last Admin: 06/20/17 11:48 Dose: 200 mg Enoxaparin Sodium (Lovenox(*)) 80 mg SUBCUT Q12H COUNTS INCLUDE 234 BEDS AT [facility] Ceftriaxone Sodium 1 gm/ (Sodium Chloride) 50 mls @ 200 mls/hr IVPB Q24H COUNTS INCLUDE 234 BEDS AT [facility] Last Admin: 06/21/17 00:56 Dose: 200 mls/hr Ketoconazole (Nizoral 2% Cream (Nf)) 1 applic TOPICAL BEDTIME BROOK PRN Reason: Protocol Last Admin: 06/20/17 21:04 Dose: 1 applic Latanoprost (Xalatan 0.005%*) 1 drop BOTH EYES BEDTIME BROOK PRN Reason: Protocol Last Admin: 06/20/17 21:04 Dose: 1 drop Melatonin (Melatonin (Nf)) 3 mg PO BEDTIME PRN PRN Reason: SLEEP Multivitamins/Minerals (Theragran/Minerals Tab*) 1 tab PO DAILY COUNTS INCLUDE 234 BEDS AT [facility] Last Admin: 06/20/17 11:48 Dose: 1 tab Nystatin (Nystatin Top Powder*) 1 applic TOPICAL BID COUNTS INCLUDE 234 BEDS AT [facility] Last Admin: 06/20/17 21:05 Dose: 1 applic Omeprazole (Prilosec Cap*) 20 mg PO DAILY@0730 COUNTS INCLUDE 234 BEDS AT [facility] Last Admin: 06/20/17 11:55 Dose: Not Given Ondansetron HCl (Zofran Tab*) 4 mg PO Q8H PRN PRN Reason: NAUSEA Oxycodone/Acetaminophen (Percocet 5/325 Tab*) 1 tab PO Q4HR PRN PRN Reason: PAIN Pharmacy Profile Note (Coumadin Daily Reminder*) 0 note FOLLOW UP 1700 COUNTS INCLUDE 234 BEDS AT [facility] Polyethylene Glycol/Electrolytes (Miralax*) 17 gm PO DAILY COUNTS INCLUDE 234 BEDS AT [facility] Last Admin: 06/20/17 11:45 Dose: 17 gm Senna (Senokot Tab*) 2 tab PO BEDTIME COUNTS INCLUDE 234 BEDS AT [facility] Last Admin: 06/20/17 21:01 Dose: 2 tab Sertraline HCl (Zoloft*) 150 mg PO DAILY COUNTS INCLUDE 234 BEDS AT [facility] Last Admin: 06/20/17 11:48 Dose: 150 mg Sodium Chloride (Sodium Chloride 0.65% Nasal [place]*) 1 spray BOTH NARES Q4H PRN PRN Reason: CONGESTION Last Admin: 06/19/17 08:43 Dose: 1 spray Spironolactone (Aldactone Tab*) 12.5 mg PO QPM COUNTS INCLUDE 234 BEDS AT [facility] Last Admin: 06/20/17 16:23 Dose: 12.5 mg Warfarin Sodium (Coumadin Tab(*)) 5 mg PO DAILY@1700 COUNTS INCLUDE 234 BEDS AT [facility] PRN Reason: Protocol Vital Signs 06/20/17 06/20/17 06/20/17 15:29 18:52 20:00 Temperature 97.8 F 97.7 F Pulse Rate 77 79 Respiratory 18 22 18 Rate Blood Pressure 128/70 138/69 (mmHg) O2 Sat by Pulse 97 100 Oximetry 06/20/17 06/21/17 23:13 02:54 Temperature 98.9 F 98.8 F Pulse Rate 87 72 Respiratory 18 16 Rate Blood Pressure 136/102 156/68 (mmHg) O2 Sat by Pulse 99 Oximetry Oxygen Devices in Use Now: None Neurology Exam: General: HEENT: Normocephalic/atraumatic, sclera anicteric with some conjunctival injection on the right, mucous membranes moist Neck: Supple Chest: Clear to auscultation bilaterally Cardiovascular: Regular rate and rhythm without murmurs, rubs, gallops Abdomen: Soft, nontender/nondistended Extremities: 1+ edema of the LLE and LUE, dependent in nature. No cords, no erythema or warmth Neurological Findings: Awake, Alert, Oriented person, [facility], [place], [place], not date, day of week, year Speech: fluent without dysarthria, repetition intact, recall appears preserved for recent events Cranial Nerve: PEERL, EOM intact, mild ptosis right eye, VF: Dense HH on the left, no nystagmus, flattening of left NLF, facial sensation intact, hearing intact to finger rub bilaterally, palate elevates symmetrically, tongue midline Motor: Dense HP on the left with minimal movement of left fingers, no movement in the Left leg, increased tone in the left arm and leg. Full strength on the right side Sensation: Grossly intact to LT throughout. Deep Tendon Reflex: Trace Right side, 3+ left BC, TC, Patella, 1+ left ankle, W/ D Babinksi bilaterally Finger to nose, rapid alternating movements intact on the right, no resting tremors Result Diagrams: 06/18/17 21:22 06/18/17 21:22 Assessment/Plan Assessment: 77 year old with h/o strokes in the past with residual left HP and Left HH, MDS , MCI, HTN, HLD, MARY, GERD, CAD with persistent low grade fevers of undetermined origin. Sees Dr. Fernandes as outpatient with some concern for seizure like episodes, transient weakness. Admitted with fevers, vomiting, UTI , now on abx. Neurology was consulted for ongoing seizure workup which was started as o/p. --Given his history of stroke and age, he does have risk factor for seizures but the semiology is unclear and with an EEG showing no epileptiform activity, I would not treat for seizures at this time. I think at this point, he can follow up with Dr. Fernandes as an outpatient for any additional neurologic workup. My suspicion for seizures is low. --Continue secondary stroke risk factor reduction: --ASA, Coumadin --Statin --BP control --Non-diabetic --Non-smoker Will sign off for now but remain available for any further concerns. Thank you for the opportunity to participate in his care.
--- NOTE | 2017-06-21 09:25 | RAD ---
INDICATION: Gastroparesis COMPARISON: None TECHNIQUE: Following the intravenous administration of 1.07 millicuries of technetium 99 M labeled sulfur colloid mixed with oatmeal, a solid phase gastric resting study was performed. Serial, static, anterior imaging of the abdomen was obtained at 5 minute increments for period of 1 hour. Time activity curves were generated in addition. The images were reviewed as static images and in a cine loop FINDINGS: The T1 half time for gastric emptying is 47 minutes. A normal solid phase gastric time is less than 90 minutes. IMPRESSION: NORMAL SOLID PHASE GASTRIC EMPTYING
[2017-06-21] MEDS: Polyethylene Glycol 3350* 17 GM PACKET PO SCH (09:37)
[2017-06-21] MEDS: Cyanocobalamin TAB* 500 MCG PO SCH (09:38)
[2017-06-21] MEDS: Cholecalciferol TAB* 1000 UNITS PO SCH (09:38)
[2017-06-21] MEDS: Acetaminophen TAB* 325 MG PO SCH (09:38)
[2017-06-21] MEDS: Docusate CAP* 100 MG PO SCH (09:38)
[2017-06-21] MEDS: Sertraline* 50 MG TAB PO SCH (09:38)
[2017-06-21] MEDS: Aspirin 81 mg CHEW TAB* 81 MG TAB.CHEW PO SCH (09:38)
[2017-06-21] MEDS: Carvedilol TAB* 3.125 MG PO SCH (09:38)
[2017-06-21] MEDS: Omeprazole CAP* 20 MG PO SCH (09:38)
[2017-06-21] MEDS: Multivitamins/Minerals TAB PO SCH (09:38)
[2017-06-21] MEDS: Nystatin TOP POWDER* 15 GM BTL TOPICAL SCH (09:52)
[2017-06-21] MEDS ORDERED: Warfarin TAB(*) 5 MG PO SCH (17:00)
--- NOTE | 2017-06-22 05:44 | EEG ---
ELECTROENCEPHALOGRAM REPORT: DATE OF STUDY: 06/20/17 LOCATION: He is an inpatient in room 418. CHIEF COMPLAINT: Increased confusion, increased word finding difficulties. MEDICATIONS: Include: 1. Ondansetron. 2. Percocet. 3. Aspirin. 4. Omeprazole. 5. Ceftriaxone. 6. Carvedilol. 7. Atorvastatin. EEG DESCRIPTION: This 16-channel EEG is remarkable for background rhythms consisting of diffuse low-voltage fast activity bifrontally with central and bitemporal slowing in the theta and delta ranges. The patient is clinically awake. The patient drowses with increase in bitemporal theta rhythms and occasionally some parasagittal sleep spindles are seen which are poorly formed. The patient is drowsy and awake through most of the tracing. Activation procedures are not attempted. There is a notation of a right shoulder twitch and a left leg jerk, but there are no changes in background electroencephalographic activity. INTERPRETATION: Borderline abnormal EEG due to disorganization and slowing of the awaking background rhythms. There are no focal epileptiform discharges. [id number]/[facility] #: [id number] [facility] CENTERDavid
--- NOTE | 2017-06-22 15:18 | DS ---
CC: Mattie rDew MD; Dr. Fernandes; Dr. Freedman DISCHARGE SUMMARY: DATE OF ADMISSION: 06/19/17 DATE OF DISCHARGE: 06/21/17 PRIMARY CARE PROVIDER: Mattie Drew MD. NEUROLOGIST: Dr. Fernandes. DIRECTOR MERIT SYSTEM: Dr. Freedman. DISCHARGE DIAGNOSES: 1. Fever of unknown origin. 2. Proteus mirabilis urinary tract infection, present on admission, not Joy catheter related. 3. Vomiting, likely secondary to urinary tract infection. SECONDARY DIAGNOSES: 1. Myelodysplastic syndrome. 2. Multiple cerebrovascular accidents with left hemiparesis. 3. Cognitive impairment secondary to multiple cerebrovascular accidents. 4. Hypertension. 5. Hyperlipidemia. 6. Obstructive sleep apnea, on BiPAP. 7. Gastroesophageal reflux disease. 8. Coronary artery disease, status post CABG. 9. Cholelithiasis. 10. Nephrolithiasis. MEDICATION LIST: 1. Acetaminophen 650 mg p.o. b.i.d. 2. Aspirin 81 mg p.o. daily. 3. Atorvastatin 10 mg p.o. at 2100. 4. Bisacodyl 10 mg per rectum daily as needed for constipation. 5. Carvedilol 1.5625 mg p.o. b.i.d. 6. Cholecalciferol 1000 units p.o. daily. 7. Vitamin B12 at 1000 mcg p.o. daily. 8. Colace 200 mg p.o. daily. 9. Fluticasone nasal spray 50 mcg 2 sprays to both nares daily as needed for allergies. 10. Ketoconazole 2% cream topical Wednesdays and Fridays. 11. Milk of magnesia 30 mL p.o. daily as needed for constipation. 12. Multivitamin 1 tablet p.o. daily. 13. Nystatin powder topical twice a day. 14. Omeprazole 20 mg p.o. daily. 15. Zofran 4 mg p.o. q. 8 hours p.r.n. nausea. 16. Percocet 5/325 mg 1 tablet p.o. q. 4 hours p.r.n. pain. 17. MiraLAX 17 g p.o. daily. 18. Saline 1 drop left eye q. 4 hours p.r.n. right eye. 19. Senna 2 tablets p.o. at bedtime. 20. Sertraline 150 mg p.o. daily. 21. Spironolactone 12.5 mg p.o. at bedtime. 22. Travoprost Z 0.004% one drop to both eyes at bedtime. New Medication: 1. Cefuroxime 250 mg p.o. b.i.d. for 8 more days. 2. Lovenox 80 mg subcutaneously q.12 hours until INR greater than 2. Medication Change: Warfarin was increased to 5 mg p.o. daily. HOSPITAL COURSE: Mr. Cramer is a 77-year-old male with past medical history as stated above that pr esented to the emergency room with complaints of vomiting and fever. For more details about his pres entation, I refer you to his history and physical. Chest x-ray showed postsurgical changes but no evidence for acute finding. I was contacted by his primary care provider to give more information. The patient was admitted to [facility] in December 2016 with a presentation of fever and vomiting. At that time, the impression was that he probably had viral gastroenteritis complicated by aspiration pneumonia. Apparently after dischar ge, he continued to have intermittent fevers as outpatient with no clear source, so at this point, we performed fever of unknown origin workup including a CT of the chest, abdomen and pelvis that showed bilateral dependent lower lobe infiltrate, no evidence for intraabdominal fluid collection or absces s, cholelithiasis and a nonobstructing right renal calculus. He also had a bilateral lower extremity Doppler that was negative for DVT. His ESR was elevated at 77. His CRP was mildly elevated at 17.8 . At the time of this dictation, an SPEP, UPEP, BRIAN, rheumatoid factor are pending and should be fol lowed as outpatient. Although at this time the patient appears to have an urinary tract infection, I think the etiology of his intermittent fevers is probably autoimmune like vasculitis (especially ej nt cell arteritis considering his ESR) or a malignancy, especially hematological malignancy with his history of MDS. The patient's urine culture grew Proteus mirabilis sensitive to cephalosporins and he will be dischar ged back to [facility] on Ceftin. Of note, the patient's has concerns for possible seizure and Dr. Fernandes is doing his workup as outpatient. He was seen in consultation by Neurology and given his history of stroke and age, he rodríguez s have risk factors for seizures but the semiology is unclear and even EEG showing no epileptiform ac tivity, Dr. Callaway did not recommend treating for seizures at this time. He felt that at this point, i t was safer for him to follow up with Dr. Frenandes as outpatient for any additional neurological meng p. Of note, the patient's INR on admission was 1.7 and that trending down to 1.28 on discharge. With hi s history of recurrent CVAs, although he does carry diagnosis of AFib, he will be bridged with Loveno x until his INR is therapeutic. All these findings and changes were discussed with his primary care provider on discharge and also with his on the phone. He is medically stable for discharge at this time. PHYSICAL EXAMINATION: Vital Signs: Temperature is 98.8, heart rate is 72, respiratory rate is 16, o xygen saturation is 99% on room air, blood pressure is 156/68. General: Patient is a pleasant elder ly male, lying in bed, in no acute distress. CVS: Normal S1, S2. Regular rate and rhythm. Chest: Breath sounds present bilaterally with no added sounds. Abdomen: Soft, bowel sounds present. Neuro : He is alert and oriented x2 to self and place with left hemiparesis. DIET: Heart healthy diet with nectar thick liquids. ACTIVITY: As tolerated. DISPOSITION: To [facility]. STATUS WHILE IN THE HOSPITAL: Inpatient. Please keep in mind this is a summarized version of this patient's hospital stay. If you need more in formation, please feel free to call me at [phone] or please obtain the full medical records. TIME SPENT: Approximately 45 minutes was spent to complete this discharge. [id number]/[facility] #: [id number]
== END 2017-06-21 13:45 | disposition home or self-care (01) | DRG 864 ==
LOC: ED 19:06 → MED 06-19 00:22 → OBSVTOIN 06-19 17:08
PROVIDERS: ADMIT Hospitalist; ATTEND Internal Medicine
DX: R50.9 Fever, unspecified (principal); N39.0 Urinary tract infection, site not specified; I69.354 Hemiplegia and hemiparesis following cerebral infarction affecting left non-dominant side; B96.4 Proteus (mirabilis) (morganii) as the cause of diseases classified elsewhere; R11.10 Vomiting, unspecified; D46.9 Myelodysplastic syndrome, unspecified; I69.319 Unspecified symptoms and signs involving cognitive functions following cerebral infarction; E78.5 Hyperlipidemia, unspecified; G47.33 Obstructive sleep apnea (adult) (pediatric); K21.9 Gastro-esophageal reflux disease without esophagitis; I25.10 Atherosclerotic heart disease of native coronary artery without angina pectoris; I11.9 Hypertensive heart disease without heart failure; Z95.1 Presence of aortocoronary bypass graft; K80.20 Calculus of gallbladder without cholecystitis without obstruction; N20.0 Calculus of kidney; Z91.018 Allergy to other foods; Z91.013 Allergy to seafood; E73.9 Lactose intolerance, unspecified; Z79.01 Long term (current) use of anticoagulants; Z79.1 Long term (current) use of non-steroidal anti-inflammatories (NSAID); Z79.82 Long term (current) use of aspirin; Z79.899 Other long term (current) drug therapy; Z80.9 Family history of malignant neoplasm, unspecified; Z82.49 Family history of ischemic heart disease and other diseases of the circulatory system; Z87.891 Personal history of nicotine dependence; K59.09 Other constipation; I69.391 Dysphagia following cerebral infarction; R13.10 Dysphagia, unspecified; F32.9 Major depressive disorder, single episode, unspecified
CPT/HCPCS: 36415; 71045; 71250; 74176; 78264; 80053; 81003; 81015; 82550; 83605; 83615; 84155; 84156; 84165; 84166; 84443; 84484; 85025; 85060; 85610; 85652; 85730; 86038; 86140; 86431; 87040; 87077; 87086; 87186; 87502; 87641; 93005; 93970; 94660; 95819; 99284; A9270-GY; A9541; J0696; J1644; J1650

== ENCOUNTER 2018-07-16 15:43 | Observation (INO) | payer MEDICARE, OTHER ==
[2018-07-16] MEDS ORDERED: NS 0.9% 1000 ML** 1,000 ML IV ONE (15:44)
--- NOTE | 2018-07-16 16:04 | ED ---
Neurological HPI - HPI Summary HPI Summary: Patient is a 78 y/o M with Hx of left-sided CVA with residual left-sided deficits presents to ED via EMS with complaints of worsened left transonic engineer weakness, worsened slurred speech, worsened left-sided facial droop. EMS reports that the patient's last known well was at 1030, today, at 07/16/18. The patient is a resident of [facility]. Staff were doing their regular resident checks at 1000 and patient was noted to have no acute neurological deficits. Later, at 1030, patient was noted to be nauseous and had multiple episodes of vomiting. Staff took BP at this time. However, no acute neurological deficits were noted. Patient's came to see the patient at 1430 at [facility] and believed that the patient had worsened left transonic engineer weakness, worsened slurred speech, worsened left-sided facial droop compared to baseline. EMS was called as a result. EMS notes that it is reported that the patient additionally has baseline confusion and delusions as well. He is on Coumadin. Bossman saavedra called at 1530, 15 minutes UNDERGROUND UTILITY LOCATOR. EMS arrived at 1542, provider immediately evaluated patient at this time. Upon arrival, patient is alert and oriented x3. He has complaints of nausea and dizziness at present. Patient wheeled to have brain CT at 1543. Brain CT done at 1544, patient was taken back to room. On triage, pain is denied, nothing is noted to aggravate/alleviate Sx. Home medications and allergies are reviewed. - History of Current Complaint Stated Complaint: BOSSMAN SAAVEDRA Hx Obtained From: Patient, EMS Onset/Duration: Started hours ago - Last known well 1030 today, 07/16/18, N/V onset at this time but no acute neurological Sx are noted. 1430, noted worsening of facial droop, left transonic engineer strength, and slurred speech, Still Present Timing: Intermittent Episodes Lasting: Current Severity: None Neurological Deficit Location: Facial, LUE, LLE Pain Scale Used: 0-10 Numeric Character: Dizzy, Motor Weakness - left sided, Impaired Speech, Other: - facial droop Aggravating: Nothing Alleviating: Nothing Associated Signs and Symptoms: Positive: Weakness - left sided weakness, left facial droop, Dizziness, Impaired Speech, Nausea/Vomiting - Additional Pertinent History Primary Care Physician: SARAH - Allergy/Home Medications Allergies/Adverse Reactions: Allergies Allergy/AdvReac Type Severity Reaction Status Date / Time shellfish derived Allergy Severe Airway Verified 07/16/18 17:11 Obstruction tree nut Allergy Intermediate Airway Verified 07/16/18 17:11 Obstruction vancomycin Allergy Intermediate Hives Verified 07/16/18 17:11 tree and shrub pollen Allergy Sneezing Verified 07/16/18 17:11 lactose AdvReac GI Upset Verified 07/16/18 17:11 PMH/Surg Hx/FS Hx/Imm Hx Endocrine/Hematology History: Reports: Hx Anticoagulant Therapy, Hx Bone Marrow Disease - myelodysplastic syndrome Denies: Hx Diabetes Cardiovascular History: Reports: Hx Angina, Hx Coronary Artery Disease, Hx Hypercholesterolemia, Hx Hypertension, Hx Syncope, Other Cardiovascular Problems /Disorders - LBBB Denies: Hx Congestive Heart Failure, Hx Pacemaker/ICD, Hx Peripheral Vascular Disease Respiratory History: Reports: Hx Sleep Apnea - pt states this may be new to him , unsure. Denies: Hx Asthma, Hx Chronic Obstructive Pulmonary Disease (COPD) GI History: Reports: Hx Gastroesophageal Reflux Disease, Other GI Disorders - GERD History: Reports: Hx Benign Prostatic Hyperplasia, Hx Kidney Stones, Hx Renal Disease - KIDNEY STONES, Other Problems/Disorders - KIDNEY STONES,BPH Denies: Hx Dialysis Musculoskeletal History: Reports: Hx Back Problems, Other Musculoskeletal History - Lumbar spinal stenosis Denies: Hx Osteoporosis Sensory History: Reports: Hx Contacts or Glasses, Hx Glaucoma Denies: Hx Cataracts, Hx Hearing Aid Opthamlomology History: Reports: Hx Contacts or Glasses, Hx Glaucoma Denies: Hx Cataracts Neurological History: Reports: Hx Dementia, Hx Transient Ischemic Attacks (TIA) , Other Neuro Impairments/Disorders - lumbar stenosis,CVA Denies: Hx Headaches, Hx Seizures Psychiatric History: Reports: Hx Depression Denies: Hx Anxiety, Hx Panic Disorder - Cancer History Cancer Type, 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 QUADRUPAL BYPASS-TONSILS,left femur - Immunization History Date of Tetanus Vaccine: UTD Date of Influenza Vaccine: UTD Infectious Disease History: Reports: Hx Shingles - 2009 Denies: Traveled Outside the [place] in Last 30 Days - Family History Known Family History: Positive: Cardiac Disease - Social History Alcohol Use: None Alcohol Amount: 1 drink per week Hx Substance Use: No Substance Use Type: Reports: None Hx Tobacco Use: Yes Smoking Status (MU): Former Smoker Type: Cigarettes Have You Smoked in the Last Year: No Review of Systems Positive: Vomiting, Nausea Neurological: Other - POSITIVE - FACIAL DROOP, DIZZINESS Positive: Weakness - left sided , Slurred Speech All Other Systems Reviewed And Are Negative: Yes Physical Exam - Summary Physical Exam Summary: Appearance: Well-appearing, no pain distress, well-nourished Skin: Warm, color reflects adequate perfusion, dry Head: Left sided facial droop is noted, otherwise normal. Eyes: Conjunctiva clear ENT: Normal inspection Neck: Supple, no nodes, no JVD Respiratory: Lungs clear, normal breath sounds, no respiratory distress Cardio: RRR, No murmur, pulses normal, brisk capillary refill Abdomen: Soft, nontender Bowel sounds: Present Musculoskeletal: Strength Intact/ROM intact, no calf tenderness, no edema. Psychological: Normal Neuro: A&O x3, CN II-X intact, left facial droop noted, GCS 15. Triage Information Reviewed: Yes Vital Signs On Initial Exam: Initial Vitals Pulse Ox 95 07/16/18 15:44 Vital Signs Reviewed: Yes Diagnostics - Laboratory Result Diagrams: 07/16/18 16:11 07/16/18 16:11 Lab Statement: Any lab studies that have been ordered have been reviewed, and results considered in the medical decision making process. - Radiology CXR Radiology Interpretation Completed By: Radiologist Summary of Radiographic Findings: CXR IMPRESSION: In the correct clinical setting chest x-ray findings could be compatible with. cardiogenic pulmonary edema, potentially with pleural effusion and/or consolidation at the. left lung base. THIS REPORT WAS REVIEWED BY DR. MONTOYA. - CT BRAIN CT CT Interpretation Completed By: Radiologist Summary of CT Findings: IMPRESSION: 1. There is no acute intracranial hemorrhage or noncontrast CT evidence of a new focal or. territorial infarction. 2. Multiple stable foci of encephalomalacia and evidence of widespread microvascular. disease are described above. THIS REPORT WAS REVIEWED BY DR. MONTOYA. - EKG 1554 Cardiac Rate: NL - RATE OF 78 BPM EKG Rhythm: Sinus Rhythm Summary of EKG Findings: EKG at 1554 showed sinus rhythm with rate of 78 BPM, first degree AV block (253), prolonged IVCT (112), prolonged QTc (512), left axis, no acute changes. 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 Facial Paresis-Pt to Smile & Close Eyes or Grimace Symmetry: Complete Paralysis Motor Function - Right Arm: No Drift-Holds 10 Seconds Motor Function - Left Arm: Effort Against [place] Motor Function - Right Leg: No Drift-Holds 10 Seconds Motor Function - Left Leg: Effort Against [place] Limb Ataxia-Must be out of Proportion to Weakness Present: Absent Sensory (Use Pinprick to Test Arms/Legs/Trunk/Face): Normal Best Language (Describe Picture, Name Items): No Aphasia Dysarthria (Read Several Words): Normal Extinction and Inattention: No Abnormality Total Score: 9 NIH Stroke Scale Comment: Only 3 of this NIH score (for complete left facial droop) of 9 reflects new deficit for patient. Re-Evaluation - Re-Evaluation First Eval Re-Evaluation Time: 15:53 Comment: of patient, [place], is present in the room. reports that the patient appears pale at present. Last stroke episode was May 28 2016. Hx of myelodysplasia reported by . notes that the patient experiences N /V with worsening of his myelodysplastic syndrome. Patient is on coumadin due to multiple episodes of strokes. reports that the patient walks with assistance only. No Hx of diabetes. In the room, he states "I don't feel normal in my chest". When asked to clarify this further, he states that he feels nauseous. Patient also endorses a HERNÁNDEZ in the room. PSHx of quadruple bypass in 2016. Pulse 82, BP 156/78, o2 95. Second Eval Re-Evaluation Time: 15:55 Comment: [place] telestroke contact initiated. Third Eval Re-Evaluation Time: 16:10 Comment: Dr. Sheehan evaluated the patient over telestroke on ipad. NIH was done in the room. He states that TPA is not advisable for this patient. notes that this presentation of Sx is just a worsening of baseline Sx and denies onset of any new Sx. Dr. Sheehan recommends ASA, CTA and MRI of patient. Keep head of bed no more than 30 degrees until it is known if patient has acute stroke. Fourth Eval Re-Evaluation Time: 17:55 Change: Improved Comment: As pt is being wheeled to MRI, increased movement of left leg is noted , and facial droop has diminished, to almost negligible. Course/Dx - Course Course Of Treatment: Patient is a 78 y/o M with Hx of left-sided CVA with residual left-sided deficits presents to ED via EMS with complaints of worsened left transonic engineer weakness, worsened slurred speech, worsened left-sided facial droop. EMS reports that the patient's last known well was at 1030, today, at 07/16/18. The patient is a resident of [facility]. Staff were doing their regular resident checks at 1000 and patient was noted to have no acute neurological deficits. Later, at 1030, patient was noted to be nauseous and had multiple episodes of vomiting. Staff took BP at this time. However, no acute neurological deficits were noted. Patient's came to see the patient at 1430 at [facility] and believed that the patient had worsened left transonic engineer weakness, worsened slurred speech, worsened left-sided facial droop compared to baseline. EMS was called as a result. EMS notes that it is reported that the patient additionally has baseline confusion and delusions as well. He is on Coumadin. Bossman saavedra called at 1530, 15 minutes UNDERGROUND UTILITY LOCATOR. EMS arrived at 1542, provider immediately evaluated patient at this time. Upon arrival, patient is alert and oriented x3. He has complaints of nausea and dizziness at present. of patient, [place], is present in the room. reports that the patient appears pale at present. Last stroke episode was May 28 2016. Hx of myelodysplasia reported by . notes that the patient experiences N/V with worsening of his myelodysplastic syndrome. Patient is on coumadin due to multiple episodes of strokes. reports that the patient walks with assistance only. No Hx of diabetes. In the room, he states "I don't feel normal in my chest". When asked to clarify this further, he states that he feels nauseous. Patient also endorses a HERNÁNDEZ in the room. During ED course, patient received fluids and ASA 81 mg PO. Labs showed WBC 3.2, Hgb 11.9, Hct 36, RDW 19 , Plt count 85, abs lymps 0.3, INR 2.22, APTT 45, glucose 161, alk phos 120, globulin 4.1, triglycerides 62, cholesterol 80, LDL cholesterol 44, HDL cholesterol 24. CXR IMPRESSION: In the correct clinical setting chest x-ray findings could be compatible with. cardiogenic pulmonary edema, potentially with pleural effusion and/or consolidation at the. left lung base. EKG at 1554 showed sinus rhythm with rate of 78 BPM, first degree AV block (253), prolonged IVCT (112), prolonged QTc (512), left axis, no acute changes. 1559 - Dr. Kessler reports no acute changes on Brain CT of patient. 1605 - Dr. Sheehan from [place] was contacted, he will evaluate the patient over telestroke. 1610 - Dr. Sheehan evaluated patient and recommended MRI and CTA for patient. He advises against TPA but recommends the patient be given ASA. Keep head of bed no more than 30 degrees until it is known if patient has acute stroke. BRAIN CT IMPRESSION: 1. There is no acute intracranial hemorrhage or noncontrast CT evidence of a new focal or. territorial infarction. 2. Multiple stable foci of encephalomalacia and evidence of widespread microvascular. disease are described above. 1650 - Dr. Kessler is agreeable with MRI for patient. 1654 - Patient's case was discussed with Dr. Yepez, Dr. Yepez accepts for admission. - Diagnoses Provider Diagnoses: TIA (transient ischemic attack) During the Visit The Following Alert/Code Occurred: Code Knight - Code saavedra called at 1530, 15 minutes UNDERGROUND UTILITY LOCATOR. EMS arrived at 1542, provider immediately evaluated patient at this time. Patient wheeled to have brain CT at 1543. Brain CT done at 1544, patient was taken back to room. 1553 - patient evaluated by Dr. Montoya again. 1559 - Dr. Kessler reports no acute changes on Brain CT of patient. 1605 - Dr. Sheehan from [place] was contacted, he will evaluate the patient over telestroke. 1610 - Dr. Sheehan evaluated patient and recommended MRI and CTA for patient. He advises against TPA but recommends the patient be given ASA. Keep head of bed no more than 30 degrees until it is known if patient has acute stroke. - Physician Notifications Discussed Care Of Patient With: Momo Sheehan Time Discussed With Above Provider: 16:10 Instructed by Provider To: Other - 1559 - Dr. Kessler reports no acute changes on Brain CT of patient. 1605 - Dr. Sheehan from [place] was contacted, he will evaluate the patient over telestroke. 1610 - Dr. Sheehan evaluated patient and recommended MRI and CTA for patient. He advises against TPA but recommends the patient be given ASA. Keep head of bed no more than 30 degrees until it is known if patient has acute stroke. 1650 - Dr. Kessler is agreeable with MRI for patient. 1654 - Patient's case was discussed with Dr. Yepez, Dr. Yepez accepts for admission. - Critical Care Time Critical Care Time: 30-74 min Discharge - Sign-Out/Discharge Documenting (check all that apply): Patient Departure - admit Patient Received Moderate/Deep Sedation with Procedure: No - Discharge Plan Condition: Stable Disposition: ADMITTED TO [facility] - Billing Disposition and Condition Condition: STABLE Disposition: Admitted to [facility] - Attestation Statements Document Initiated by Scribe: Yes Documenting Scribe: JEFF HASKINS Provider For Whom Scribe is Documenting (Include Credential): PARKER MONTOYA MD Scribe Attestation: JEFF Powers, scribed for PARKER MONTOYA MD on 07/17/18 at 0211. Status of Scribe Document: Viewed
[2018-07-16 16:26] LABS: Hematocrit 36 % (42-52); Hemoglobin 11.9 g/dL (14.0-18.0); Mean Corpuscular HGB Conc 33 g/dL (31-36); Mean Corpuscular Hemoglobin 28 pg (27-31); Mean Corpuscular Volume 87 fL (80-94); Mean Platelet Volume 9.2 fL (7.4-10.4); Platelet Count 85 10^3/uL (150-450); Red Blood Count 4.19 10^6 /uL (4.18-5.48); Red Cell Distribution Width 19 % (10.5-15); White Blood Count 3.2 10^3/uL (3.5-10.8)
[2018-07-16 16:30] LABS: INR 2.22 (0.82-1.09)
[2018-07-16 16:36] LABS: Albumin 4.2 g/dL (3.2-5.2); BUN/Creatinine Ratio 16.7 (8-20); Calcium 9.5 mg/dL (8.6-10.3); EGFR African American 91.2 (>60); EGFR Non-African American 75.4 (>60); Globulin 4.1 g/dL (2-4); Potassium 4.1 mmol/L (3.5-5.0); Total Bilirubin 0.6 mg/dL (0.2-1.0); Total Protein 8.3 g/dL (6.4-8.9); Troponin I 0.01 ng/mL (<0.04)
[2018-07-16] MEDS ORDERED: Iohexol 350* (CONTRAST) 500 ML MDV IV ONE (16:57)
[2018-07-16] MEDS ORDERED: Warfarin TAB(*) 5 MG PO SCH (17:00)
[2018-07-16 17:26] LABS: ABS Neutrophils 2.7 10^3/ul (1.5-7.7); ABS Neutrophils 2.8 10^3/ul (1.5-7.7)
[2018-07-16] MEDS: Aspirin 81 mg CHEW TAB* 81 MG TAB.CHEW PO ONE (17:54)
[2018-07-16 18:34] LABS: Urine Appearance Clear; Urine Bilirubin Negative (Negative); Urine Blood Negative (Negative); Urine Color Yellow; Urine Glucose Negative (Negative); Urine Ketones Negative (Negative); Urine Nitrite Negative (Negative); Urine Protein Negative (Negative); Urine Specific Gravity 1.019 (1.010-1.030); Urine Urobilinogen Negative (Negative)
[2018-07-16] MEDS ORDERED: Acetaminophen TAB* 325 MG PO PRN (18:35)
[2018-07-16] MEDS ORDERED: Fluticasone NASAL SPRAY 50MCG* 16 gm SPRAY BTL BOTH NARES PRN (18:42)
[2018-07-16] MEDS: Senna TAB PO SCH (20:39)
[2018-07-16] MEDS: Carvedilol TAB* 3.125 MG PO SCH (20:39)
[2018-07-16] MEDS: Atorvastatin* 10 MG TAB PO SCH (20:39)
[2018-07-16] MEDS: Latanoprost 0.005%* 2.5 ml BTL BOTH EYES SCH (20:39)
--- NOTE | 2018-07-16 23:56 | HP ---
CC: Dr. Drew; Dr. Fernandes * HISTORY AND PHYSICAL: DATE OF ADMISSION: 07/16/18 PROVIDER: Katerina Dee NP PRIMARY CARE PROVIDER: Dr. Drew. ATTENDING PHYSICIAN WHILE IN THE HOSPITAL: Dr. Natalia Friend * (dictated by Katerina Dee NP). CHIEF COMPLAINT: Increased left-sided weakness, vomiting. HISTORY OF PRESENT ILLNESS: Mr. Cramer is an 78-year-old male with a past medical history significant for coronary artery disease, spinal stenosis, myelodysplastic syndrome, hypertension, hyperlipidemia, history of CVA with residual left-sided weakness, who presented to the emergency room with complaints of nausea and vomiting and increased left-sided facial droop and left -sided weakness. The patient currently resides at [facility]. He was last seen normal at approximately 10 a.m. and presented to the emergency room. He started with nausea and vomiting approximately 10:30, which resolved after administration of Zofran. The visited the patient at approximately 1500 and noticed that he had increased left-sided facial droop and speech was off with increased weakness on the left side. So, he was brought to the emergency room for further evaluation. The patient presented to the emergency room at 1556. At that time, Ed Osorio was called. The patient went directly to ID and [facility] was consulted in the case. The patient reports that he was not feeling well this morning and had a few episodes of vomiting, but denies any recent fevers or other illnesses. Denies any chest pain, edema, cough, hemoptysis, or shortness of breath. Denies any diarrhea or abdominal pain. He denies any difficulty with urination or pain with urination. He does report chronic left-sided weakness and chronic left- sided facial droop. Denies any changes in his vision, trouble swallowing, rashes, lesions, or open sores. While in the emergency room, the patient had routine lab work drawn. CT of the brain showed no acute intracranial hemorrhage, no acute infarct, multiple stable foci with widespread microvascular disease. He had a CT of the head and neck. According to NASCET criteria, there was 0 degree of stenosis and an MRI of the brain was also ordered that showed no new infarct. Due to the increased left-sided facial droop and left-sided weakness, we were asked to see and evaluate the patient for admission. PAST MEDICAL HISTORY: 1. History of prostate cancer with prostatectomy. 2. History of kidney stones. 3. Spinal stenosis. 4. History of coronary artery disease, status post quadruple bypass. 5. Myelodysplastic syndrome. 6. Hypertension. 7. Hyperlipidemia. 8. Macular degeneration. 9. Glaucoma. 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 11. History of left CVA with residual left-sided weakness and left facial droop. PAST SURGICAL HISTORY: 1. Back surgery. 2. Prostatectomy. 3. Quadruple bypass. HOME MEDICATIONS: 1. Coumadin 5 mg p.o. Tuesday, Tuesday, and Tuesday. 2. Coumadin 2.5 mg Tuesday, Tuesday, , Tuesday. 3. Spironolactone 12.5 mg p.o. daily. 4. Vitamin B12 700 mcg 2 tablets p.o. daily. 5. Carvedilol 1.56 mg twice daily. 6. Senna 8.6 two tabs at h.s. 7. Travatan 0.004% one drop to both eyes at bedtime. 8. MiraLAX 1 packet in 8 ounces every other day. 9. Sertraline 150 mg p.o. daily. 10. Aspirin 81 mg p.o. daily. 11. Atorvastatin 10 mg p.o. daily. 12. Omeprazole 20 mg p.o. daily. 13. Vitamin D3 1000 units p.o. every other day. 14. Multivitamin 1 tab p.o. daily. 15. Tylenol 650 mg p.o. b.i.d., at 8 a.m. and 2 p.m. 16. Plaquenil 200 mg 2 tabs p.o. daily. 17. PreserVision 2 one cap p.o. b.i.d. 18. Ferrous sulfate 325 mg p.o. every other day. 19. Vitamin C 1 tab p.o. every other day. 20. Melatonin 3 mg 1 tab at bedtime. ALLERGIES: To SHELLFISH, TREE NUTS, VANCOMYCIN, TREE and SHRUB POLLEN, LACTOSE. FAMILY HISTORY: Mom of cancer, unknown type. Father had an FL at the age of 57. SOCIAL HISTORY: The patient smoked for approximately 1 year in his late 20s. He reports occasional alcohol. Denies any illicit drug use. 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 He is . Surrogate decision maker in the event he is unable to make his own decisions is his , [place]. He is a full code. REVIEW OF SYSTEMS: An 11-point review of systems was completed. All pertinent positives were mentioned in the HPI, otherwise were negative. PHYSICAL EXAMINATION GENERAL: The patient is a well-developed elderly male. He is lying on the stretcher in the emergency room. He does not appear to be in any acute distress. He is alert and oriented x3. VITAL SIGNS: Blood pressure 156/78, temperature was 98.3, heart rate 86, respirations 16, O2 saturation on room air was 98%. HEENT: Head is atraumatic, normocephalic. Eyes: EOMs are intact. Sclerae anicteric and not pale. Oral mucosa appeared to be moist. NECK: Supple. LUNGS: Clear to auscultation bilaterally. They are diminished in the left base. CARDIAC: S1, S2. Regular rate and rhythm. No murmurs, rubs, or gallops. ABDOMEN: Soft and nontender. Bowel sounds are present x4. EXTREMITIES: Pedal pulses are +2 bilaterally. He has limited range of motion noted to his left upper and lower extremities. Right extremity move without difficulty. There is no clubbing or cyanosis. NEUROLOGIC: He is awake, alert, oriented x3. Speech is clear. Thought process is intact. The patient does have left facial droop, left hand is mildly contracted. He does have a weaker left handgrip. He is able to slightly raise his left arm off the bed. Left leg push/pull is weakened. He is able to elevate the leg off the bed but remains weak on that side. Right handgrip is strong. Right push/pull is intact. There is no pronator drift on the right. Smile, there is left facial droop. Tongue is midline with mild deviation to the left. SKIN: Intact. DIAGNOSTIC STUDIES/LAB DATA: WBCs are 3.2 which is at the patient's baseline, RBCs 4.19, hemoglobin 11.9, hematocrit was 36, platelet count was 85 which is the patient's baseline, neutrophils were 88, absolute neutrophils 2.7. INR was 2.22. Sodium 137, potassium 4.1, chloride was 102, carbon dioxide was 28, anion gap was 7, BUN was 16, creatinine 0.96, glucose 161, calcium 9.5. Total bili was 0.60, ASTs were 26, ALTs were 27, alkaline phosphatase 120. Troponin 0.01. Protein was 8.3, albumin 4.2, globulin was 4.1. Triglycerides were 62, cholesterol was 80, LDL was 44, HDL was 24. Urine was within normal limits. He had a CT of the brain, radiologist's impression: 1. There is no acute intracranial hemorrhage or noncontrast CT evidence of new focal or territorial infarction. 2. There is multiple stable foci of encephalomalacia and evidence of widespread microvascular disease. Chest x-ray, radiologist's impression: In the correct clinical setting, chest x - ray findings could be compatible with cardiogenic pulmonary edema, potentially with pleural effusion and/or consolidation in the left lung base. The patient had a CTA of the head and neck, radiologist's impression: 1. CTA of the neck, the common and internal carotid arteries are patent without hemodynamically significant stenosis. Impression according to NASCET criteria, there is 0 degree of stenosis in the bilateral carotid bulbs. 2. Chronic findings include calcified atherosclerosis of the right carotid bulb and bilateral petrous carotid arteries but the arteries of the head and neck are otherwise adequately patent without focal abrupt occlusion. He had an MRI of the brain, radiologist's impression: 1. There is no increased signal or diffusion-weighted imaging to indicate acute focal or territorial infarction. 2. There are chronic findings, include stable areas of encephalomalacia as well as an appearance consistent with chronic microvascular disease. He had an electrocardiogram which showed sinus rhythm at a rate of 78. ASSESSMENT AND PLAN: Mr. Cramer is an 78-year-old male with a past medical history significant for cerebrovascular accident with residual left-sided weakness and left facial droop, history of prostate cancer, hypertension, hyperlipidemia, and history of coronary artery disease, status post quadruple bypass, who presented to the emergency room with increased left facial droop and left-sided weakness after several hours of vomiting at home. He will be admitted under observation for: 1. Increased left-sided weakness, left facial droop. The patient will be ruled out for cerebrovascular accident versus transient ischemic attack versus recrudescence of previous stroke symptoms exacerbated by viral illness. The patient had a CT of the brain and MRI. He had a CTA of the head and neck which did not show any acute infarct. The patient's symptoms are improving after IV hydration in the emergency room. I will place him under observation, I will place him on telemetry. We will continue neuro checks q.4 hours. I will continue him on atorvastatin, aspirin, and Coumadin as previously prescribed. I did discuss the case with Dr. Callaway on the phone. If the patient's symptoms do not improve overnight, Neurology will consult on the patient in the a.m., but again, the patient's MRI did not show any acute infarction at this time. 2. Nausea and vomiting. I suspect this is related to gastrointestinal illness. The patient did receive Zofran with resolution of his vomiting. He has had no further episodes of vomiting. We will continue with Zofran as needed for nausea and vomiting. He did receive 1 L of IV hydration in the emergency room. He appears to be euvolemic. 3. History of coronary artery disease. I will continue on carvedilol b.i.d. as previously prescribed. He will continue his atorvastatin, aspirin as previously prescribed. I will hold the spironolactone this evening. 4. Depression. He will continue on sertraline 150 mg p.o. daily. 5. His chest x-ray was concerning for pulmonary edema versus consolidation versus left pleural effusion. The patient denies any cough, congestion, or hemoptysis. The patient denies any shortness of breath. He denies any fever or chills. At this time, I will hold on initiation of antibiotics, as the patient is not exhibiting any signs or symptoms of underlying infection, underlying pneumonia. Should the patient develop a fever, cough, or congestion, we will consider initiating antibiotics at that time. The patient appears to be euvolemic at this time. He does not appear to be fluid overloaded. I am going to hold off on giving the patient diuretic as the patient has had an episode of diarrhea and vomiting today. Should the patient's O2 saturations decrease or he become acutely short of breath, we could consider a dose of Lasix at that time. The patient denies any history of congestive heart failure. I will repeat a transthoracic echocardiogram to evaluate his heart function. His last known ejection fraction in 2017 was 40% to 45% and there was no diastolic dysfunction at that time. 6. FEN. He can have a heart-healthy, caffeine-okay diet. 7. Code status. He is a full code. 8. DVT prophylaxis. He will continue on Coumadin. His INR is therapeutic at this time at 2.22. TIME SPENT: Time spent on this admission was approximately 60 minutes, greater than half that time was spent at the bedside reviewing events leading thus far to his hospitalization, performing physical exam, and reviewing my plan of care. I have discussed this with my attending, ; she is in agreement with my plan. KATERINA DEE, COMPTROLLER [id number]/CPS #: [id number] DIEGO
--- NOTE | 2018-07-17 03:14 | PN ---
Progress Note - Progress Note Date of Service: 07/17/18 Note: Paged by nurse questioning PRBC order that was ordered by ED physician earlier today. Patient being admitted for CVA work up. H/H chronically low but stable - Hx of MDS. No evidence of bleeding per records. Will d/c PRBC transfusion
[2018-07-17 05:57] LABS: INR 2.2 (0.82-1.09)
[2018-07-17 06:01] LABS: Hematocrit 32 % (42-52); Hemoglobin 10.7 g/dL (14.0-18.0); Mean Corpuscular HGB Conc 33 g/dL (31-36); Mean Corpuscular Hemoglobin 29 pg (27-31); Mean Corpuscular Volume 86 fL (80-94); Mean Platelet Volume 10.5 fL (7.4-10.4); Platelet Count 80 10^3/uL (150-450); Red Blood Count 3.73 10^6 /uL (4.18-5.48); Red Cell Distribution Width 19 % (10.5-15); White Blood Count 2.1 10^3/uL (3.5-10.8)
[2018-07-17 06:11] LABS: BUN/Creatinine Ratio 15.5 (8-20); Calcium 9.3 mg/dL (8.6-10.3); EGFR African American 90.1 (>60); EGFR Non-African American 74.5 (>60)
[2018-07-17 06:16] LABS: Polychromasia 1+
[2018-07-17] MEDS: Aspirin 81 mg CHEW TAB* 81 MG TAB.CHEW PO SCH (08:01)
[2018-07-17] MEDS: Multivitamins/Minerals TAB PO SCH (08:01)
[2018-07-17] MEDS: Pantoprazole TAB * 40 MG TAB PO SCH (08:01)
[2018-07-17] MEDS: Cyanocobalamin TAB* 500 MCG PO SCH (08:01)
[2018-07-17] MEDS: Cholecalciferol TAB* 1000 UNITS PO SCH (08:01)
[2018-07-17] MEDS: Sertraline* 100 MG TAB PO SCH (08:02)
[2018-07-17] MEDS: Carvedilol TAB* 3.125 MG PO SCH ×2 (08:02→22:22)
[2018-07-17 14:12] LABS: ABS Lymphocytes 0.8 10^3/ul (1.0-4.8); ABS Monocytes 0.2 10^3/ul (0-0.8); ABS Neutrophils 1.1 10^3/ul (1.5-7.7)
[2018-07-17 14:13] LABS: Eosinophil % 0.2 %; Lymphocyte % 37.6 %; Nucleated Red Blood Cells % 0.2
[2018-07-17] MEDS ORDERED: Warfarin TAB(*) 5 MG PO SCH (17:00)
--- NOTE | 2018-07-17 17:04 | PN ---
Subjective Date of Service: 07/17/18 Interval History: Mr. Cramer is feeling better today. He continues to report left sided weakness , increased from baseline. Denies CP, SOB, N/V. He is not able to provide reliable subjective data d/t dementia. His is at bedside. She reports his symptoms on admission resolved once he arrived on the floor last night, but are recurring this morning. Left leg weakness is the worst. There is some increase in left arm weakness and facial droop, but not to the extent of the leg. reports he has been c/o a headache for the last few days, 03/26 and constant. No concerns from nursing Tele: NSR in the 70s. Family History: Unchanged from Admission Social History: Unchanged from Admission Past Medical History: Unchanged from Admission Objective Active Medications: Acetaminophen (Tylenol Tab*) 650 mg PO Q4H PRN FEVER/PAIN Aspirin (Aspirin 81 Mg Chew Tab*) [address] [facility] Atorvastatin Calcium (Lipitor*) [address] [facility] Carvedilol (Coreg Tab*) 1.5625 mg PO BID [facility] Cholecalciferol (Vitamin D Tab*) 1,000 units PO DAILY [facility] Cyanocobalamin (Vitamin B12 Tab*) 1,[address] [facility] Fluticasone Propionate (Flonase Nasal Brent 50mcg*) 2 spray BOTH NARES DAILY [facility] Latanoprost (Xalatan 0.005%*) 1 drop BOTH EYES BEDTIME [facility]; Protocol Multivitamins/Minerals (Theragran/Minerals Tab*) [address] [facility] Pantoprazole Sodium (Protonix Tab*) [address] [facility] Polyethylene Glycol/Electrolytes (Miralax*) [address] gm PO EVERY OTHER DAY [facility] Senna (Senokot Tab*) 2 tab PO BEDTIME [facility] Sertraline HCl (Zoloft*) [address] [facility] Spironolactone (Aldactone Tab*) 12.5 mg PO QPM [facility] Warfarin Sodium (Coumadin Tab(*)) 5 mg PO SuMoWe@1700 [facility]; Protocol Warfarin Sodium (Coumadin Tab(*)) 2.5 mg PO TuThFrSa@1700 [facility] Vital Signs - 8 hr 07/17/18 07/17/18 11:31 15:23 Temperature 97.8 F 97.8 F Pulse Rate 78 76 Respiratory 16 Rate Blood Pressure 124/59 124/61 (mmHg) O2 Sat by Pulse 94 97 Oximetry Oxygen Devices in Use Now: None Appearance: Elderly male laying in bed in NAD Eyes: No Scleral Icterus Ears/Nose/Mouth/Throat: Mucous Membranes Moist Neck: NL Appearance and Movements; NL JVP, Trachea Midline Respiratory: Symmetrical Chest Expansion and Respiratory Effort, Clear to Auscultation Cardiovascular: NL Sounds; No Murmurs; No JVD, RRR Abdominal: NL Sounds; No Tenderness; No Distention Neurological: - - Oriented to self and place; Strength 4/5 on the right, 1/5 on the left; Mild left facial droop Lines/Tubes/Other Access: Clean, Dry and Intact Peripheral IV Nutrition: Taking PO's Result Diagrams: 07/17/18 05:25 07/17/18 05:28 Assess/Plan/Problems-Billing Assessment: Mr. Cramer is an 78 yo M with PMH of CVA w/ residual left sided hemiparesis, CAD s/p bypass, MDS, HTN, and HLD; who presented to the ED after [facility] staff noted increased left sided weakness and was admitted for TIA vs recrudescence of stroke symptoms. - Patient Problems (1) Left-sided weakness Code(s): R53.1 - WEAKNESS Comment: - Intermittently, increased from baseline - MRI brain unremarkable for acute findings - Appreciate Neurology consult; this may represent recrudescence of stroke symptoms vs possible seizure activity, but no medication changes indicated at this time - Neuro checks q4h (2) Nausea and vomiting Code(s): R11.2 - NAUSEA WITH VOMITING, UNSPECIFIED Comment: - One episode prior to admission, but no further symptoms - Suspect possible viral illness (3) Abnormal chest xray Code(s): R93.89 - ABNORMAL FINDINGS ON DX IMAGING OF OTH BODY STRUCTURES Comment: - CXR shows findings consistent with pulmonary edema, pleural effusion, or LLL consolidation in the correct clinical setting - No symptomology to correlate with findings, so will continue to hold off on diuresis and abx unless he becomes symptomatic (4) H/O: CVA (cerebrovascular accident) Code(s): Z86.73 - PRSNL HX OF TIA (TIA), AND CEREB INFRC W/O RESID DEFICITS Comment: - Multiple prior infarcts, which have 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 - Continue Coumadin (5) HTN (hypertension) Code(s): I10 - ESSENTIAL (PRIMARY) HYPERTENSION Comment: - Continue spironolactone, carvedilol (6) Depression Code(s): F32.9 - MAJOR DEPRESSIVE DISORDER, SINGLE EPISODE, UNSPECIFIED Comment: - Continue sertraline (7) Coronary artery disease Code(s): I25.10 - ATHSCL HEART DISEASE OF [place] CORONARY ARTERY W/O ANG PCTRS Comment: - S/p CABG - Continue carvedilol, aspirin, atorvastatin (8) Myelodysplastic disease Code(s): C94.6 - MYELODYSPLASTIC DISEASE, NOT CLASSIFIED Comment: - Pancytopenia at baseline (9) GERD (gastroesophageal reflux disease) Code(s): K21.9 - GASTRO-ESOPHAGEAL REFLUX DISEASE WITHOUT ESOPHAGITIS Comment : - Continue pantoprazole (10) DVT prophylaxis Comment: - Coumadin (11) Full code status Code(s): Z78.9 - OTHER SPECIFIED HEALTH STATUS Comment: Status and Disposition: Observation. Anticipate d/c back to [facility] tomorrow. will provide transport. Attending: Promise Yepez
[2018-07-17] MEDS ORDERED: Spironolactone TAB* 25 MG PO SCH (18:00)
--- NOTE | 2018-07-17 18:33 | CONS ---
CC: Dr. Drew; Dr. Fernandes * CONSULTATION REPORT: DATE OF CONSULT: 07/17/18 PRIMARY CARE PHYSICIAN: Dr. Drew. CURRENT LOCATION: Room 437. REASON FOR CONSULTATION: Left-sided weakness. HISTORY OF PRESENT ILLNESS: Mr. Cramer is a very nice 78-year-old gentleman who I know from seeing him in 2018. He has a complicated history including history of multiple strokes, including a right thalamic stroke in 2011 with residual hemineglect and left-sided weakness, fatigue and cognitive changes, history of ischemic stroke in the right caudate head and right thalamus and right pontine and right amado in 2013. A history of stroke in 2016 in the left internal capsule consistent with a subacute ischemic stroke and chronic ischemic changes in the left frontal lobe suggesting ischemic stroke since 2016. 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 He also has a history of obstructive sleep apnea on CPAP at home, hypertension, and chronic hemiparesis on the left side. He takes Coumadin for his history of strokes. He also has a history of hyperlipidemia and myelodysplastic syndrome followed by Dr. Vallecillo. He lives in a residential home, normally he does not ambulate by himself, but can ambulate with full assist and a walker. His reports that yesterday morning he developed acute onset of nausea and vomiting, this lasted for approximately 2 hours and was fairly persistent. Shortly thereafter, it was felt that the weakness on the left side was worse. He seemed to be less able to lift his arm and leg on the left side which was a change for him. The apparently visited at around 3'o clock and noticed that the left side of his face was drooping more and his speech seemed to be more off than normal. He was brought to the ER, Ed Osorio was called. The patient was on Coumadin. CT head showed no acute changes, but old disease. CTA of the neck showed no large vessel occlusion, showed no severe stenosis and an MRI of the brain was done in the ER which showed no new strokes. At that point the patient had been symptomatic for at least 4 hours. His course waxed and waned, during the evening he seemed to improve per his , this morning she noted that his symptoms were slightly worse and I was consulted today for concern regarding the waxing and waning of left-sided symptoms. He does have a left homonymous hemianopsia at baseline. The patient denied any other problems other than the nausea or vomiting. There has been no sick contacts. He has been afebrile. His states that normally when he gets nausea or vomiting it is because of worsening of his myelodysplastic syndrome, although his CBC is stable. He denies any new stroke like symptoms. There has been no reported chest pain, no reported shortness of breath above his baseline, although his chest x-ray did show some changes concerning for consolidation. Of note, he has been evaluated in the past multiple times for a concern for possible seizures. He has had multiple EEGs done. In 2016, he had an EEG which showed mild nonspecific diffuse encephalopathy, this was after a suspected stroke that had happened 2 weeks prior. He subsequently had an EEG done in 2016 and again in December 2016. That was a longer term monitor which did show some right hemispheric arrhythmic delta activity in the parietal region, some discernible organization in terms of identifiable anterior-posterior voltage and frequency gradients. Posterior dominant rhythm of 8 Hz which was irregular. Over the left hemisphere was identifiable organization and defined anterior to posterior voltage and frequency gradients. He had some interictal-type activity including 1 to 3 Hz activity with overriding passive frequencies. Frequency activity intermixed sharp features. There was no seizures recorded, but the findings were concerning. He subsequently had another EEG in 2017 based on some altered mental status which showed no seizure like activity. He was not started on any seizure medication and has not been on any. There has been no reported generalized tonic-clonic activity. Since this morning or rather at the bedside when I evaluated him, his states that his strength on the left side seems to be a little improved, better than when he arrived yesterday, but worse than his baseline. PAST MEDICAL HISTORY: As noted above. In addition, he has: 1. History of prostate cancer. 2. Kidney stones. 3. Spinal stenosis. 4. Coronary artery disease status post quadruple bypass. 5. Macular degeneration. 6. Glaucoma. PAST SURGICAL HISTORY: Includes: 1. Back surgery. 2. Prostatectomy. 3. Quadruple bypass. MEDICATIONS: His home medications include: 1. Coumadin 5 mg p.o. Tuesday, Tuesday, and Tuesday. 2. Coumadin 2.5 mg Tuesday, Tuesday, , and Tuesday. 3. Spironolactone 12.5 mg p.o. daily. 4. Vitamin B12. 5. Carvedilol 1.56 mg daily. 6. Senna. 7. Travatan eye drops. 8. MiraLAX. 9. Sertraline 150 mg p.o. daily. 10. Aspirin 81 mg p.o. daily. 11. Atorvastatin 10 mg p.o. daily. 12. Omeprazole 20 mg p.o. daily. 13. Vitamin D3. 14. Multivitamin. 15. Tylenol p.r.n. 16. Plaquenil 200 mg 2 tablets p.o. daily. 17. PreserVision eye drops. 18. Ferrous sulfate. 19. Vitamin C. 20. Melatonin 3 mg which was started several months ago. ALLERGIES: He has allergies to VANCOMYCIN, LACTOSE intolerance, SHRUB POLLEN, TREE NUTS, and SHELLFISH. FAMILY HISTORY: Significant for father with a heart attack. 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 Smoked many many years ago in his 20s for one year. He has an occasional glass of wine. No illicit substance use. He is ; his [place] is the surrogate decision maker. REVIEW OF SYSTEMS: In 14-organ systems as noted above, otherwise negative. PHYSICAL EXAMINATION: Vital Signs: Temperature has been afebrile, pulse rate in the 70s to 80s, respiratory rate 14 to 16, blood pressure 128/64 to 127/61 to 124/59. On admission, his blood pressures were higher, 156/78. General: He is a well-nourished, well-developed obese gentleman lying in his hospital bed. He is pleasant, well dressed, well groomed. HEENT: He is normocephalic, atraumatic. He has dry flaky skin. Mucous membranes are slightly dry. Oropharynx is clear. Nares are parent. Neck: No carotids bruits appreciated. Chest: Clear to auscultation bilaterally. Cardiovascular: Regular rate and rhythm with a systolic ejection murmur. Abdomen: Obese. Extremities: There is no significant clubbing or cyanosis. Skin: Warm and dry. No obvious lesions or skin breakdown. Neurologic: He is awake and alert. He is oriented x3. His speech is fluent. Cranial nerves: Pupils are equally round and reactive to light and accommodation. Extraocular muscles appear to be intact with good tracking. There is no obvious diplopia. No ptosis. No nystagmus. Visual reddy, he has a dense left homonymous hemianopsia. Face, he has some flattening of the left nasolabial fold which is subtle in nature. Facial sensation is intact. Tongue is midline. Palate raises symmetrically. Motor: He has full strength and movement on the right upper and right lower extremity. Tone is normal. On the left upper extremity he has some movement off of the bed, but unable to sustain. Proximally and distally he has some hand scale expert, strength 4-. There is some mild contracture in the hand. In the left lower extremity he was able to lift his leg off of the bed and hold it for approximately 5 seconds with some drift down. His states that this is worse than his baseline. Distally he had 5/5 foot flexor on the left. He had 4 -/5 foot extensor on the left. Sensation grossly intact to light touch. He had extinguishing with double simultaneous stimulation in the upper and lower extremities. He appears to have some mild neglect as well. DTRs, he has 2+ at the left patella, 1+ at the right patella, 2+ at the biceps , ankles were absent. Babinski withdraw bilaterally. [id number] was slow, but intact. There was no obvious resting on intention tremor. Gait was not tested. DIAGNOSTIC STUDY/LAB DATA: Includes a white count of 2.1, down from 3.2 on admission; hemoglobin of 10.7; hematocrit of 32; platelet count of 80,000. INR of 2.20. Basic metabolic panel this morning was normal except for glucose of 125, complete metabolic panel yesterday glucose of 161, alkaline phosphatase 120 , globulin 4.1, BNP 194. Triglycerides 62, cholesterol 80 and LDL of 44, HDL of 24. Urine showed some ascorbic acid, otherwise negative. Studies done include: 1. A brain MRI yesterday showed no increased signal on diffusion-weighted imaging, chronic findings including stable encephalomalacia. 2. He had a CT angiogram of the head and neck done yesterday, 0 degree stenosis at the bilateral carotid bulbs, chronic findings including calcified atherosclerosis at the right carotid bulbs, in bilateral petrous carotid arteries. The other arteries of the head and neck are otherwise adequately patent without focal abrupt occlusion. 3. He had a chest x-ray done yesterday which showed findings compatible with cardiogenic pulmonary edema potentially with pleural effusion and/or consolidation at the left lung base. 4. He had a brain CT which showed no acute changes, chronic white matter disease and stable foci of encephalomalacia. ASSESSMENT AND PLAN: Mr. Cramer is an 78-year-old gentleman with a significant cardiovascular history including coronary artery disease, status post quadruple bypass, a history of multiple strokes in the past, no history of atrial fibrillation, on Coumadin with a therapeutic INR, a history of hyperlipidemia, hypertension, history of left homonymous hemianopsia and left- sided hemiparesis with waxing and waning symptoms, brought to the hospital with what appeared to be worsening left upper and lower extremity weakness and possibly some speech difficulties. This seems to have waxed and waned during his hospitalization. This morning his feels that it is better, but worse than his baseline. This all happened after he had several hours of vomiting yesterday of unclear etiology. At this point, given his normal MRI and his other studies, I suspect that this is recrudescence of his prior stroke. Given the fact that he had a fairly significant episode of vomiting yesterday, it is likely that he became somewhat dehydrated that he had some electrolyte shifts, the stress of the situation also added to reemergence of some of his symptoms. I see nothing on examination that would make me think of any new stroke. In addition, he has sleep apnea and sleeps poorly at times. This could stress him out as well. There is some possible pulmonary edema versus consolidation on the left lung base, although my suspicion for underlying pneumonia is low. In short, he has several reasons why he could have had recrudescence of symptoms and I suspect over the next day or so he will improve, I would recommend physical therapy. I would not make any changes to his current regimen and continue secondary stroke risk factor reduction as well as Coumadin. He does have a history of some abnormal EEGs in the setting of significant strokes such as he has, the potential for underlying seizure is there as in 2018 when I saw him, I have no strong or clear-cut evidence of a seizure and I am very hesitant to add another medication to his already long regimen. Based on what I know now , I am going to hold off on any seizure medication. I do not think we need to repeat an EEG at this point. This is something that needs to be followed up closely and I will make Dr. Fernandes aware and she can follow him up, but for now no new medication. 3. He has recent episodes of nausea and vomiting of unclear etiology. Continue hydration which may help him as well. At this point, we will continue to follow, but I am not going to make any changes, I will make further recommendations as necessary. Thank you for the opportunity to participate in the care of this very interesting patient. [id number]/[facility] #: [id number] DIEGO
[2018-07-17] MEDS: Senna TAB PO SCH (22:24)
[2018-07-17] MEDS: Atorvastatin* 10 MG TAB PO SCH (22:24)
[2018-07-17] MEDS: Latanoprost 0.005%* 2.5 ml BTL BOTH EYES SCH (22:25)
[2018-07-17] MEDS ORDERED: Melatonin 3 MG TAB PO PRN (22:41)
[2018-07-18] MEDS: Sertraline* 100 MG TAB PO SCH (08:56)
[2018-07-18] MEDS: Aspirin 81 mg CHEW TAB* 81 MG TAB.CHEW PO SCH (08:57)
[2018-07-18] MEDS: Carvedilol TAB* 3.125 MG PO SCH (08:57)
[2018-07-18] MEDS: Cholecalciferol TAB* 1000 UNITS PO SCH (08:57)
[2018-07-18] MEDS: Multivitamins/Minerals TAB PO SCH (08:57)
[2018-07-18] MEDS: Pantoprazole TAB * 40 MG TAB PO SCH (08:57)
[2018-07-18] MEDS: Cyanocobalamin TAB* 500 MCG PO SCH (08:58)
[2018-07-18] MEDS ORDERED: Polyethylene Glycol 3350* 17 GM PACKET PO SCH (09:00)
[2018-07-18 13:04] VITALS: BP 127/59
[2018-07-18] MEDS ORDERED: Warfarin TAB(*) 2.5 MG PO SCH (17:00)
--- NOTE | 2018-07-19 00:32 | DS ---
CC: Dr. Mattie Drew; Dr. Kayleigh Fernandes; Dr. Arash Callaway * DISCHARGE SUMMARY: DATE OF ADMISSION: 07/16/18 DATE OF DISCHARGE: 07/18/18 PRIMARY CARE PROVIDER: Dr. Mattie Drew. NEUROLOGIST: Dr. Kayleigh Fernandes. ATTENDING PHYSICIAN: Dr. Karis Mariscal * (dictated by Shante Bahena NP). PRIMARY DIAGNOSES: 1. Increased left-sided weakness, likely recrudescence of previous stroke symptoms. 2. Nausea and vomiting, single episode. SECONDARY DIAGNOSES: 1. History of cerebrovascular accident with residual left-sided hemiparesis. 2. Hypertension. 3. Depression. 4. Coronary artery disease. 5. Myelodysplastic disease. 6. Gastroesophageal reflux disease. STUDIES WHILE IN THE HOSPITAL: 1. Brain CT on 07/16/18 reads as: There is no acute intracranial hemorrhage or noncontrast CT evidence of a new focal or territorial infarction. Multiple stable foci of encephalomalacia and evidence of widespread microvascular disease are described in the body of the report. 2. Chest x-ray on 07/16/18 reads as: In the current clinic setting, chest x- ray findings could be compatible with cardiogenic pulmonary edema potentially with pleural effusion and/or consolidation at the left lung base. 3. EKG on 07/16/18 shows normal sinus rhythm with rate of 78, first-degree AV block, QTc 512. Q waves present in inferior and anterior leads consistent with the patient's previous EKG on file. 4. Head CTA on 07/16/18 reads as: According to NASCET criteria, there is 0% decreased stenosis at the bilateral carotid bulbs. Chronic findings include calcified atherosclerosis at the right carotid bulb and bilateral atherosclerotic arteries but the arteries of the head and neck are otherwise adequately patent without focal abrupt occlusions. 5. Brain MRI on 07/16/18 reads as: There is no increased signal on diffusion weighted imaging to indicate acute focal or territorial infarction. Chronic findings include stable areas of encephalomalacia as well as an appearance consistent with chronic microvascular disease. CONSULTATIONS WHILE IN THE HOSPITAL: Dr. Callaway from Neurology on 07/17/18. HISTORY OF PRESENT ILLNESS AND HOSPITAL COURSE: Mr. Cramer is an 78-year-old male with past medical history of CVA with residual left-sided hemiparesis, coronary artery disease, status post CABG, MDS, hypertension, hyperlipidemia, and ramses- diplopia, who presented to the emergency room on 07/16/18 with complaints of increased left-sided weakness and an episode of vomiting. Please see the history and physical by Katerina Dee NP for a complete summary of the events leading up to his hospitalization. In short, the patient does have significant left-sided hemiparesis due to a prior stroke. The patient resides at [facility] and was noted by nursing staff to have an increased left-sided facial droop and slurred speech. This occurred after a single episode of vomiting. The patient was brought to the emergency room where a nidra zuñiga was called. Imaging was completed as noted above. In the emergency room, he was noted to have pancytopenia consistent with his baseline due to myelodysplastic disease. He was noted to have a therapeutic INR and an elevated glucose. Lab work was otherwise essentially unremarkable. Vital signs were noted to be stable, although he was slightly hypertensive with systolics in the 150s. Because of the concern for increased weakness, the patient was admitted by the hospitalist service. Due to the timing of the symptoms, it was felt as though recrudescence of prior stroke symptoms was the likely cause of the left-sided weakness. Imaging was unremarkable for any acute changes. The patient was given gentle IV hydration and monitored on telemetry. He did not have any further episodes of nausea and vomiting and it is suspected that this was possibly due to a transient viral illness. The patient's symptoms did resolve by the time he arrived to the floor , although the next morning on 07/17/18, symptoms had returned. I did consult Dr. Callaway from Neurology, and at that point, he also felt that the symptoms were likely recrudescence. He recommended physical therapy, although no changes in medication. He did note that the patient has had abnormal EEGs in the past, so there is a small chance that this represents seizure activity, though at this point adding any new medication to his regimen was not recommended. He recommended outpatient followup with Dr. Fernandes, who has been following the patient for quite some time. The patient was seen by Physical Therapy, who noted that he is a 2-assist to stand and pivot, although this is consistent with his baseline. There have been no arrhythmias noted on telemetry and repeat lab work was unremarkable. I did speak with the patient's yesterday and advised her that the patient would likely be discharged this morning and she was agreeable to that plan. As of today, the patient reports feeling well. He offers no complaints and is anxious to return home. On exam, he is only oriented to self and place. He is quite disoriented to situation. Speech is clear. He does have a mild left facial droop. Strength is 4/5 on right upper and lower extremities and 1/5 on left upper and lower extremities. His heart is a regular rate and rhythm without murmurs, rubs, or gallops. Lungs are clear to auscultation without rhonchi, wheezes, or rubs. I should note that due to the single episode of nausea and vomiting and the abnormal findings noted on chest x-ray, the patient was evaluated for infection , although there was no source of infection at this point. Clinically, he appears well and has no respiratory symptoms, so there is no clinical evidence to support pneumonia. Additionally, his urinalysis was unremarkable. So, there was no concern for infection at this time. Again, the single episode of nausea and vomiting may have been a transient viral illness. Mr. Cramer is stable for discharge today. Vital signs are as follows: Temp 98.1, heart rate 67, respiratory rate 16, oxygen saturation 99% on room air, blood pressure 127/59. DISCHARGE MEDICATIONS: Continued Medications: 1. Acetaminophen 650 mg p.o. b.i.d. 2. Aspirin 81 mg p.o. daily. 3. Atorvastatin 10 mg p.o. at bedtime. 4. Dulcolax suppository 10 mg MD daily p.r.n. constipation. 5. Carvedilol 1.5625 mg p.o. b.i.d. 6. Cholecalciferol 1000 units p.o. daily. 7. Vitamin B12 1000 mcg p.o. daily. 8. Fluticasone 50 mcg 2 sprays both nares daily p.r.n. congestion. 9. Ketoconazole 2% cream 1 application topically Wednesdays and Fridays. 10. Milk of mag 30 mL p.o. daily p.r.n. constipation. 11. Multivitamin 1 tab p.o. daily. 12. Nystatin powder 1 application topically b.i.d. 13. Omeprazole 20 mg p.o. daily. 14. Ondansetron 4 mg p.o. q.8 hours p.r.n. nausea. 15. MiraLax 17 g p.o. every other day. 16. Senna 2 tabs p.o. at bedtime. 17. Sertraline 150 mg p.o. daily. 18. Spironolactone 12.5 mg p.o. at bedtime. 19. Travoprost 1 drop both eyes at bedtime. 20. Warfarin 2.5 mg Tuesday, , Tuesday, Tuesday. 21. Warfarin 5 mg p.o. Tuesday, Tuesday, Tuesday. DISCHARGE PLAN: Mr. Cramer will be discharged back to [facility]. Activity will be as tolerated. The patient has been receiving physical therapy and it is recommended that this be continued. Diet will be regular, mechanical ground. Medications are noted above. The patient can continue his usual medications and I have not made any changes. He will need to follow up with his primary care provider in 4 to 7 days. He will also need to follow up with Dr. Fernandes and I have scheduled him an appointment for 08/02/18 at 9 a.m. The patient should return to the emergency room or nearest hospital for any worsening of symptoms, shortness of breath, lightheadedness, dizziness, chest discomfort, high fever, chills, night sweats, loss of consciousness, or any other worrisome signs or symptoms. DISCHARGE CONDITION: Stable. DISCHARGE DISPOSITION: Home. This is a summarized report of a complex medical history and hospital stay. For further details, please see the entire medical record. TIME SPENT: Approximately 45 minutes was spent on this discharge. SHANTE BAHENA, ALTITUDE CHAMBER TECHNICIAN [id number]/[facility] #: [id number] [place]IEGO
== END 2018-07-18 14:15 | disposition home or self-care (01) ==
LOC: ED 15:43 → MEDTELE 18:35
PROVIDERS: ADMIT Internal Medicine; ATTEND Internal Medicine
DX: R53.1 Weakness (principal); I69.354 Hemiplegia and hemiparesis following cerebral infarction affecting left non-dominant side; R11.2 Nausea with vomiting, unspecified; I10 Essential (primary) hypertension; F32.9 Major depressive disorder, single episode, unspecified; I25.10 Atherosclerotic heart disease of native coronary artery without angina pectoris; C94.6 Myelodysplastic disease, not elsewhere classified; K21.9 Gastro-esophageal reflux disease without esophagitis; Z79.82 Long term (current) use of aspirin; Z79.01 Long term (current) use of anticoagulants; N40.0 Benign prostatic hyperplasia without lower urinary tract symptoms; Z87.442 Personal history of urinary calculi; Z87.891 Personal history of nicotine dependence; R93.89 Abnormal findings on diagnostic imaging of other specified body structures; Z85.46 Personal history of malignant neoplasm of prostate; M48.00 Spinal stenosis, site unspecified; H40.9 Unspecified glaucoma; Z95.1 Presence of aortocoronary bypass graft
CPT/HCPCS: 36415; 70450; 70496; 70498; 70551; 71045; 80048; 80053; 80061; 81003; 83605; 83880; 84484; 85025; 85060; 85610; 85730; 86850; 86870; 86880; 86900; 86901; 86922; 93005; 94660; 99285; A9270-GY; G0378; G8978-GP-CL; G8979-GP-CJ; G8996-GN-CH; G8997-GN-CH; G8998-GN-CH; Q9967

== ENCOUNTER 2018-10-31 09:25 | Emergency (ER) | payer OTHER ==
--- NOTE | 2018-10-31 09:32 | ED ---
Headache - HPI Summary HPI Summary: Pt is an 78 y/o M presenting to the ED brought in by EMS for a headache initially onset this morning. Per EMS, they were called to the scene at [facility] for CP, but the pt c/o a diffuse headache rated at 8/10 w/ associated N/V. Staff at [facility] note his hx of CVA causing chronic L-sided weakness. He currently reports a diffuse headache rated at 4/10 with nausea but no vomiting. He denies new weakness, slurred speech, visual changes, or myalgia. Medications reviewed. Allergies noted. - History Of Current Complaint Chief Complaint: EDHeadache Stated Complaint: HEADACHE PER EMS Time Seen by Provider: 10/31/18 09:26 Hx Obtained From: Patient Onset/Duration: Gradual Onset, Started hours ago, Still Present Initially Headache Was: Initial Pain Scale(0-10)= - 8, Severe Currently Pain Is: Current Pain Scale(0-10)= - 4, Moderate Timing: Constant, Hours Character: Typical Headache Location of Headache: Diffuse Aggravating Factor: Nothing Allevating Factors: Nothing Associated Signs And Symptoms: Nausea - Allergies/Home Medications Allergies/Adverse Reactions: Allergies Allergy/AdvReac Type Severity Reaction Status Date / Time shellfish derived Allergy Severe Airway Verified 07/16/18 17:11 Obstruction tree nut Allergy Intermediate Airway Verified 07/16/18 17:11 Obstruction vancomycin Allergy Intermediate Hives Verified 07/16/18 17:11 tree and shrub pollen Allergy Sneezing Verified 07/16/18 17:11 lactose AdvReac GI Upset Verified 07/16/18 17:11 Home Medications: Home Medications Acetaminophen TAB* [Tylenol TAB*] 650 mg PO Q4H PRN 10/31/18 [History Confirmed 10/31/18] Ascorbic Acid TAB* [Vitamin C TAB*] 500 mg PO .QOD 10/31/18 [History Confirmed 10/31/18] Ferrous Sulfate TAB* 325 mg PO .QOD 10/31/18 [History Confirmed 10/31/18] Hydroxychloroquine TAB* [Plaquenil TAB*] 400 mg PO DAILY 10/31/18 [History Confirmed 10/31/18] Melatonin (NF) 1 tab PO BEDTIME 10/31/18 [History Confirmed 10/31/18] Mouth Tonic Rinse 1 oral.liq PO BID 10/31/18 [History Confirmed 10/31/18] Pramoxine HCl [Sarna Sensitive Anti-Itch] 1 applic TOPICAL DAILY PRN 10/31/18 [ History Confirmed 10/31/18] Sodium Phosphate ADULT ENEMA* [Fleet Enema*] 1 enema [place] DAILY PRN 10/31/18 [ History Confirmed 10/31/18] Vit C/E/Zn/Coppr/Lutein/Zeaxan [Preservision Areds 2 Softgel] 1 each PO BID [History Confirmed 10/31/18] diPHENhydraMINE PO* [Benadryl PO 25 MG TAB*] 25 mg PO Q4HR PRN 10/31/18 [ History Confirmed 10/31/18] PMH/Surg Hx/FS Hx/Imm Hx Previously Healthy: Yes Endocrine/Hematology History: Reports: Hx Anticoagulant Therapy, Hx Bone Marrow Disease - myelodysplastic syndrome Denies: Hx Diabetes Cardiovascular History: Reports: Hx Angina, Hx Coronary Artery Disease, Hx Hypercholesterolemia, Hx Hypertension, Hx Syncope, Other Cardiovascular Problems /Disorders - LBBB Denies: Hx Congestive Heart Failure, Hx Pacemaker/ICD, Hx Peripheral Vascular Disease Respiratory History: Reports: Hx Seasonal Allergies, Hx Sleep Apnea Denies: Hx Asthma, Hx Chronic Obstructive Pulmonary Disease (COPD) GI History: Reports: Hx Gastroesophageal Reflux Disease, Other GI Disorders - GERD Denies: Hx Gastrointestinal Bleed, Hx Hiatal Hernia, Hx Irritable Bowel, Hx Obstructive Bowel, Hx Ileostomy, Hx Pyloric Stenosis History: Reports: Hx Acute Renal Failure, Hx Benign Prostatic Hyperplasia, Hx Kidney Stones, Hx Renal Disease - KIDNEY STONES, Other Problems/Disorders - KIDNEY STONES,BPH Denies: Hx Chronic Renal Failure, Hx Dialysis Musculoskeletal History: Reports: Hx Back Problems, Other Musculoskeletal History - Lumbar spinal stenosis Denies: Hx Osteoporosis Sensory History: Reports: Hx Contacts or Glasses, Hx Glaucoma, Hx Macular Degeneration, Hx Vision Problem Denies: Hx Cataracts, Hx Eye Prosthesis, Hx Legally Blind, Hx Hearing Aid, Hx Hearing Problem Opthamlomology History: Reports: Hx Contacts or Glasses, Hx Glaucoma, Hx Macular Degeneration, Hx Vision Problem Denies: Hx Cataracts, Hx Eye Prosthesis, Hx Legally Blind Neurological History: Reports: Hx CVA - with left sided weakness , Hx Dementia, Hx Transient Ischemic Attacks (TIA), Other Neuro Impairments/Disorders - lumbar stenosis,CVA Denies: Hx Headaches, Hx Seizures, Hx Spinal Cord Injury Psychiatric History: Reports: Hx Depression Denies: Hx Anxiety, Hx Oppositional [place] Disorder, Hx Panic Disorder, Hx Suicide Attempt, Hx of Violent Episodes Against Others - Cancer History Cancer Type, 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 TONSILS,left femur - Immunization History Date of Tetanus Vaccine: UTD Date of Influenza Vaccine: UTD Infectious Disease History: No Infectious Disease History: Reports: Hx Shingles - 2009 Denies: Hx Clostridium Difficile, Hx Hepatitis, Hx of Known/Suspected MRSA, Hx Tuberculosis, Hx Known/Suspected VRE, Hx Known/Suspected VRSA, Traveled Outside the [place] in Last 30 Days - Family History Known Family History: Positive: Cardiac Disease - Social History Alcohol Use: None Alcohol Amount: 1 drink per week Hx Substance Use: No Substance Use Type: Reports: None Hx Tobacco Use: Yes Smoking Status (MU): Former Smoker Type: Cigarettes Have You Smoked in the Last Year: No Review of Systems Eyes: Negative Positive: Nausea. Negative: Vomiting Negative: Myalgia Positive: Headache. Negative: Weakness, Slurred Speech All Other Systems Reviewed And Are Negative: Yes Physical Exam - Summary Physical Exam Summary: Constitutional: Well-developed, Well-nourished, Alert. (-) Distressed Skin: Warm, Dry HENT: Normocephalic; Atraumatic Eyes: Conjunctiva normal Neck: Musculoskeletal ROM normal neck. (-) JVD, (-) Stridor, (-) Tracheal deviation Cardio: Rhythm regular, rate normal, Heart sounds normal; Intact distal pulses; The pedal pulses are 2+ and symmetric. Radial pulses are 2+ and symmetric. (-) Murmur Pulmonary/Chest wall: Effort normal. (-) Respiratory distress, (-) Wheezes, (-) Rales Abd: Soft, (-) tenderness, (-) Distension, (-) Guarding, (-) Rebound Musculoskeletal: (-) Edema Lymph: (-) Cervical adenopathy Neuro: Alert, Oriented x3. L-sided facial droop. 1/5 strength in LUE and LLE. 3/ 5 strength in RUE and RLE. Pt cannot gaze left of midline. Psych: Mood and affect Normal Triage Information Reviewed: Yes Vital Signs On Initial Exam: Initial Vitals Temp Pulse Resp BP Pulse Ox 97.7 F 69 14 127/66 97 10/31/18 09:26 10/31/18 09:26 10/31/18 09:26 10/31/18 09:26 10/31/18 09:26 Vital Signs Reviewed: Yes - [place] Coma Scale Best Eye Response: 4 - Spontaneous Best Motor Response: 6 - Obeys Commands Best Verbal Response: 5 - Oriented Coma Scale Total: 15 Diagnostics - Vital Signs Vital Signs Temp Pulse Resp BP Pulse Ox 10/31/18 09:26 97.7 F 69 14 127/66 97 - Laboratory Result Diagrams: 10/31/18 09:42 10/31/18 09:42 Lab Statement: Any lab studies that have been ordered have been reviewed, and results considered in the medical decision making process. - CT Brain CT CT Interpretation Completed By: Radiologist Summary of CT Findings: 1. 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 2. NO ACUTE INTRACRANIAL PATHOLOGY. ED physician has reviewed this report. Headache Course/Dx - Course Course Of Treatment: Patient is here with a mild headache and nausea that started this morning. Patient denied any other symptoms including chest pain. Patient had a similar episode one week ago. Patient is on Coumadin so a CT head was performed which showed no evidence of spontaneous intracranial hemorrhage. Patient does not have any new neuro deficits. Patient's blood work was unremarkable. Patient declined pain and nausea medicine. - Diagnoses Provider Diagnoses: Headache, Nausea Discharge ED - Sign-Out/Discharge Documenting (check all that apply): Patient Departure Patient Received Moderate/Deep Sedation with Procedure: No - Discharge Plan Condition: Stable Disposition: HOME Patient Education Materials: Acute Nausea and Vomiting (ED), General Headache ( ED) Referrals: Mattie Drew MD [Primary Care Provider] - Additional Instructions: Please follow up with your primary care provider within the next 1-3 days. Return to the emergency department with any suddenly worsening headache or worsening nausea/vomiting. - Billing Disposition and Condition Condition: STABLE Disposition: Home - Attestation Statements Document Initiated by Scribe: Yes Documenting Scribe: Cheryl Sanchez Provider For Whom Scribe is Documenting (Include Credential): Juan C Modi MD. Scribe Attestation: I, Cheryl Sanchez, scribed for Juan C Modi MD. on 10/31/18 at 1216. Scribe Documentation Reviewed: Yes Provider Attestation: The documentation as recorded by the scribe, Cheryl Sanchez accurately reflects the service I personally performed and the decisions made by me, Juan C Modi MD. Status of Scribe Document: Viewed
[2018-10-31 09:52] LABS: Hematocrit 35 % (42-52); Mean Corpuscular HGB Conc 34 g/dL (31-36); Mean Corpuscular Hemoglobin 30 pg (27-31); Mean Corpuscular Volume 87 fL (80-94); Mean Platelet Volume 9.7 fL (7.4-10.4); Platelet Count 86 10^3/uL (150-450); Red Blood Count 4.04 10^6 /uL (4.18-5.48); Red Cell Distribution Width 18 % (10-15); White Blood Count 4.1 10^3/uL (3.5-10.8)
[2018-10-31 10:06] LABS: INR 2.2 (0.82-1.09)
[2018-10-31 10:11] LABS: Albumin/Globulin Ratio 1.2 (1-3); BUN/Creatinine Ratio 13.7 (8-20); Calcium 9.5 mg/dL (8.6-10.3); EGFR African American 92.3 (>60); EGFR Non-African American 76.3 (>60); Globulin 3.3 g/dL (2-4); Potassium 4.2 mmol/L (3.5-5.0); Total Bilirubin 0.5 mg/dL (0.2-1.0); Total Protein 7.3 g/dL (6.4-8.9)
[2018-10-31 10:13] LABS: ABS Lymphocytes 0.6 10^3/ul (1.0-4.8); ABS Monocytes 0.2 10^3/ul (0-0.8); ABS Neutrophils 3.2 10^3/ul (1.5-7.7); Eosinophil % 0.1 %; Nucleated Red Blood Cells % 0.1
[2018-10-31 11:24] VITALS: BP 149/67
[2018-10-31 16:07] LABS: Troponin I 0.01 ng/mL (<0.04)
== END 2018-10-31 11:30 | disposition home or self-care (01) ==
LOC: ED 09:25
DX: R51 Headache (principal); R11.0 Nausea; I25.119 Atherosclerotic heart disease of native coronary artery with unspecified angina pectoris; E78.00 Pure hypercholesterolemia, unspecified; I10 Essential (primary) hypertension; K21.9 Gastro-esophageal reflux disease without esophagitis; N40.0 Benign prostatic hyperplasia without lower urinary tract symptoms; F32.9 Major depressive disorder, single episode, unspecified; I69.954 Hemiplegia and hemiparesis following unspecified cerebrovascular disease affecting left non-dominant side; Z87.891 Personal history of nicotine dependence; Z79.899 Other long term (current) drug therapy; Z88.1 Allergy status to other antibiotic agents
CPT/HCPCS: 36415; 70450; 80053; 84484; 85025; 85060; 85610; 99284

== ENCOUNTER 2018-11-01 14:04 | Inpatient (IN) | payer OTHER ==
[2018-11-01] MEDS ORDERED: Cefepime(*) 2 GM in NS 0.9% 50 ML* 50 ML IVPB ONE (14:12)
[2018-11-01] MEDS ORDERED: Levofloxacin 750 MG IVPREMIX(* 750 MG/150 ML BAG IVPB ONE (14:12)
--- NOTE | 2018-11-01 14:17 | ED ---
Complex/Multi-Sys Presentation - HPI Summary HPI Summary: This patient is an 78 year old M [facility] via EMS to ED with a chief complaint of gurgling and altered mental status since [employer]. Patient was found on the floor at [facility] by the nursing staff. Per EMS, patient vomited coffee ground emesis that may have been aspirated. Patient was seen here at [facility] yesterday for headache and chest discomfort. At the time, he was able to speak and answer questions appropriately. Thus, the gurgling is new. Patient is on warfarin and aspirin. He has a history of CVA and remnant left-sided weakness. Rectal temperature taken in the room is 103.9 F. Patient denies chest pain, headache, and shortness of breath. The patient rates the pain 0/10 in severity. Symptoms aggravated by nothing. Symptoms alleviated by nothing. - History Of Current Complaint Time Seen by Provider: 11/01/18 14:07 Hx Obtained From: Patient, EMS, Medical Records Onset/Duration: Sudden Onset, Lasting Hours - Since [employer], Still Present Timing: Constant Severity Currently: Mild Severity Initially: Mild Aggravating Factor(s): Nothing Alleviating Factor(s): Nothing Associated Signs And Symptoms: Positive: Vomiting - Coffee ground emesis, may have been aspirated per EMS, Fever, Other - Gurgling, AMS. Negative: Headache, SOB, Chest Pain - Allergies/Home Medications Allergies/Adverse Reactions: Allergies Allergy/AdvReac Type Severity Reaction Status Date / Time shellfish derived Allergy Severe Airway Verified 07/16/18 17:11 Obstruction tree nut Allergy Intermediate Airway Verified 07/16/18 17:11 Obstruction vancomycin Allergy Intermediate Hives Verified 07/16/18 17:11 tree and shrub pollen Allergy Sneezing Verified 07/16/18 17:11 lactose AdvReac GI Upset Verified 07/16/18 17:11 Home Medications: Home Medications Senna TAB 8.6 mg* [Senokot 8.6 mg TAB*] 2 tab PO DAILY PRN 11/01/18 [History Confirmed 11/01/18] PMH/Surg Hx/FS Hx/Imm Hx Endocrine/Hematology History: Reports: Hx Anticoagulant Therapy, Hx Bone Marrow Disease - myelodysplastic syndrome Denies: Hx Diabetes Cardiovascular History: Reports: Hx Angina, Hx Coronary Artery Disease, Hx Hypercholesterolemia, Hx Hypertension, Hx Syncope, Other Cardiovascular Problems /Disorders - LBBB Denies: Hx Congestive Heart Failure, Hx Pacemaker/ICD, Hx Peripheral Vascular Disease Respiratory History: Reports: Hx Seasonal Allergies, Hx Sleep Apnea Denies: Hx Asthma, Hx Chronic Obstructive Pulmonary Disease (COPD) GI History: Reports: Hx Gastroesophageal Reflux Disease, Other GI Disorders - GERD Denies: Hx Gastrointestinal Bleed, Hx Hiatal Hernia, Hx Irritable Bowel, Hx Obstructive Bowel, Hx Ileostomy, Hx Pyloric Stenosis History: Reports: Hx Acute Renal Failure, Hx Benign Prostatic Hyperplasia, Hx Kidney Stones, Hx Renal Disease - KIDNEY STONES, Other Problems/Disorders - KIDNEY STONES,BPH Denies: Hx Chronic Renal Failure, Hx Dialysis Musculoskeletal History: Reports: Hx Back Problems, Other Musculoskeletal History - Lumbar spinal stenosis Denies: Hx Osteoporosis Sensory History: Reports: Hx Contacts or Glasses, Hx Glaucoma, Hx Macular Degeneration, Hx Vision Problem Denies: Hx Cataracts, Hx Eye Prosthesis, Hx Legally Blind, Hx Hearing Aid, Hx Hearing Problem Opthamlomology History: Reports: Hx Contacts or Glasses, Hx Glaucoma, Hx Macular Degeneration, Hx Vision Problem Denies: Hx Cataracts, Hx Eye Prosthesis, Hx Legally Blind Neurological History: Reports: Hx CVA - with left sided weakness , Hx Dementia, Hx Transient Ischemic Attacks (TIA), Other Neuro Impairments/Disorders - lumbar stenosis,CVA Denies: Hx Headaches, Hx Seizures, Hx Spinal Cord Injury Psychiatric History: Reports: Hx Depression Denies: Hx Anxiety, Hx Oppositional [place] Disorder, Hx Panic Disorder, Hx Suicide Attempt, Hx of Violent Episodes Against Others - Cancer History Cancer Type, 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 TONSILS,left femur - Immunization History Date of Tetanus Vaccine: UTD Date of Influenza Vaccine: UTD Infectious Disease History: Reports: Hx Shingles - 2009 Denies: Hx Clostridium Difficile, Hx Hepatitis, Hx of Known/Suspected MRSA, Hx Tuberculosis, Hx Known/Suspected VRE, Hx Known/Suspected VRSA - Family History Known Family History: Positive: Cardiac Disease - Social History Alcohol Use: None Alcohol Amount: 1 drink per week Hx Substance Use: No Substance Use Type: Reports: None Hx Tobacco Use: Yes Smoking Status (MU): Former Smoker Type: Cigarettes Have You Smoked in the Last Year: No Review of Systems Positive: Fever Negative: Chest Pain Negative: Shortness Of Breath Gastrointestinal: Other - Gurgling Positive: Vomiting - Per EMS Neurological: Other - AMS Negative: Headache All Other Systems Reviewed And Are Negative: Yes Physical Exam - Summary Physical Exam Summary: VITAL SIGNS: Reviewed. GENERAL: Patient is a well-developed and nourished M who is lying comfortable in the stretcher. Patient is not in any acute respiratory distress. Patient is moaning. HEAD AND FACE: Erythema to right side of forehead EYES: PERRLA, EOMI x 2, No injected conjunctiva, no nystagmus. EARS: Hearing grossly intact. Ear canals and tympanic membranes are within normal limits. MOUTH: Oropharynx within normal limits. NECK: Supple, trachea is midline, no adenopathy, no JVD, no carotid bruit, no c- spine tenderness, neck with full ROM. CHEST: Symmetric, no tenderness at palpation. LUNGS: Decreased breath sounds bilaterally, crackles in the bases of the lungs CVS: Regular rate and rhythm, S1 and S2 present, no murmurs or gallops appreciated. ABDOMEN: Soft, non-tender. No signs of distention. No rebound, no guarding, and no masses palpated. Bowel sounds are normal. EXTREMITIES: FROM in all major joints, no edema, no cyanosis or clubbing. NEURO: Alert but not oriented, not answering questions appropriately. Patient has left-sided weakness, which, per EMS, is remnant from his previous stroke. GCS: 14 SKIN: Dry and warm. Triage Information Reviewed: Yes Vital Signs On Initial Exam: Initial Vitals Temp Pulse Resp BP Pulse Ox 103.9 F 125 28 130/81 80 11/01/18 14:27 11/01/18 14:27 11/01/18 14:27 11/01/18 14:27 11/01/18 14:27 Vital Signs Reviewed: Yes - [place] Coma Scale Best Eye Response: 4 - Spontaneous Best Motor Response: 6 - Obeys Commands Best Verbal Response: 4 - Confused Coma Scale Total: 14 Diagnostics - Laboratory Result Diagrams: 11/01/18 14:20 11/01/18 14:20 Lab Statement: Any lab studies that have been ordered have been reviewed, and results considered in the medical decision making process. - Radiology CXR Radiology Interpretation Completed By: Radiologist Summary of Radiographic Findings: NO ACTIVE CARDIOPULMONARY DISEASE IS NOTED. Dr. Merchant has reviewed this radiology report. Abdomen XR Radiology Interpretation Completed By: Radiologist Summary of Radiographic Findings: Impression: Although there are a few air- fluid levels, the bowel is not dilated. Gas extends to the rectum. ED physician has reviewed this imaging report. - CT Brain CT Interpretation Completed By: Radiologist Summary of CT Findings: 1. NO EVIDENCE FOR ACUTE FINDING. 2. MULTIPLE BILATERAL OLD INFARCTS. 3. ATROPHY AND FINDINGS SUGGESTIVE OF MODERATE TO SEVERE CHRONIC SMALL VESSEL ISCHEMIC CHANGES. Dr. Merchant has reviewed this radiology report. - EKG 1434 Cardiac Rate: Tachycardia - 122 BPM EKG Rhythm: Sinus Tachycardia Summary of EKG Findings: Sinus tachycardia at 122 BPM, LBBB. Re-Evaluation - Re-Evaluation First Eval Re-Evaluation Time: 17:35 Comment: We discussed plan for admission following results. Complex Multi-Symp Course/Dx Assessment/Plan: Initially the patient is tachycardic, febrile, hypoxic therefore I believe the patient is septic. We initially started with IV fluids normal saline 30 ccs per kg and I started with prophylactic antibiotics cefepime and Levaquin since the patient is having decreased breath sounds, crackles in both bases of the lungs, and he is short of breath. Blood test results without any significant abnormality except for slight anemia with a hemoglobin of 13.2 and hematocrit of 39, INR of 2.3, APTT of 42.4, fibrinogen of 410. ABG shows a pH of 7.38, pCO2 43, pO2 88, O2 sat is 98.1. CMP without any significant abnormality except for chloride of 100, glucose of 160, lactic acid of 2.2, alkaline phosphatase of 132, CRP of 59.98, and BNP of 149. Urinalysis is negative for UTI. Chest x-ray impression: No active cardiopulmonary disease noted. X-ray of the abdomen impression: Although there is a few air-fluid levels, the bowel disease not dilated. Gas extends to the rectum. Head CT impression: No evidence for acute findings. Multiple bilateral old infarcts. Atrophy and findings suggestive of moderate to severe chronic small vessel ischemic changes. At this point. because of his symptoms. I discussed my physical exam and findings with Dr. Yepez who accepted the patient for admission. The patient is hemodynamically stable but still confused. - Diagnoses Provider Diagnoses: Altered mental status, Sepsis - Physician Notifications Discussed Care Of Patient With: Promise Yepez - hospitalist Time Discussed With Above Provider: 17:30 Instructed by Provider To: Admit As Observation - Dr. Yepez accepts the patient for admission. Discharge ED - Sign-Out/Discharge Documenting (check all that apply): Patient Departure - Patient accepted for admission by Dr. Yepez. Patient Received Moderate/Deep Sedation with Procedure: No - Discharge Plan Condition: Stable Disposition: ADMITTED TO [facility] Referrals: Mattie Drew MD [Primary Care Provider] - - Billing Disposition and Condition Condition: STABLE Disposition: Admitted to [facility] - Attestation Statements Document Initiated by Scribe: Yes Documenting Scribe: Karthik Mathews Provider For Whom Juliana is Documenting (Include Credential): Rome Merchant MD Scribe Attestation: Karthik Powers, scribed for Rome Merchant MD on 11/01/18 at 1836. Scribe Documentation Reviewed: Yes Provider Attestation: The documentation as recorded by the Karthik nieves accurately reflects the service I personally performed and the decisions made by me, Rome Merchant MD Status of Scribe Document: Viewed
[2018-11-01] MEDS ORDERED: Cefepime 2 GM in Dextrose(*) 2 GM/50 ML BAG IV ONE (14:40)
[2018-11-01 14:44] LABS: ABS Lymphocytes 0.3 10^3/ul (1.0-4.8); ABS Monocytes 0.1 10^3/ul (0-0.8); ABS Neutrophils 3.7 10^3/ul (1.5-7.7); Hematocrit 39 % (42-52); Hemoglobin 13.2 g/dL (14.0-18.0); Lymphocyte % 7.2 %; Mean Corpuscular HGB Conc 34 g/dL (31-36); Mean Corpuscular Hemoglobin 30 pg (27-31); Mean Corpuscular Volume 88 fL (80-94); Nucleated Red Blood Cells % 0.2; Platelet Count 118 10^3/uL (150-450); Red Blood Count 4.46 10^6 /uL (4.18-5.48); Red Cell Distribution Width 18 % (10-15); White Blood Count 4.1 10^3/uL (3.5-10.8)
[2018-11-01 14:50] LABS: Activated Partial Thrombo Time 42.4 seconds (26.0-38.0); INR 2.3 (0.82-1.09)
[2018-11-01] MEDS: NS 0.9% 1000 ML** 1,000 ML IV.FLUID IV ONE ×3 (14:56→16:05)
[2018-11-01 15:04] LABS: Troponin I 0.01 ng/mL (<0.04)
[2018-11-01 15:06] LABS: Albumin 4.3 g/dL (3.2-5.2); Albumin/Globulin Ratio 1.2 (1-3); BUN/Creatinine Ratio 15.9 (8-20); C Reactive Protein 59.98 mg/L (<8.01); Calcium 9.5 mg/dL (8.6-10.3); EGFR African American 75.6 (>60); EGFR Non-African American 62.4 (>60); Globulin 3.7 g/dL (2-4)
[2018-11-01 15:33] LABS: Potassium 4.5 mmol/L (3.5-5.0)
[2018-11-01 15:37] LABS: Urine Appearance Clear; Urine Bilirubin Negative (Negative); Urine Blood Negative (Negative); Urine Color Yellow; Urine Glucose Negative (Negative); Urine Ketones Negative (Negative); Urine Nitrite Negative (Negative); Urine Protein Negative (Negative); Urine Specific Gravity 1.017 (1.010-1.030); Urine Urobilinogen Positive (Negative)
[2018-11-01 17:36] LABS: Erythrocyte Sed Rate 32 mm/Hr (0-19)
[2018-11-01] MEDS ORDERED: Ondansetron INJ* 2 MG/ML VIAL IV PRN (19:07)
[2018-11-01] MEDS ORDERED: Acetaminophen TAB* 325 MG PO PRN (19:07)
[2018-11-01] MEDS ORDERED: Piperacillin/Tazobac ADVAN(*) 3.375 GM in NS 0.9% 100 ML* 100 ML IVPB ONE (19:07)
[2018-11-01] MEDS ORDERED: Benzonatate CAP* 100 MG PO PRN (19:07)
[2018-11-01] MEDS ORDERED: Senna TAB 8.6 mg* TAB PO PRN (19:19)
[2018-11-01] MEDS ORDERED: Iohexol 300* (CONTRAST) 10 ML SDV IV ONE (19:29)
[2018-11-01] MEDS ORDERED: Zosyn per Pharmacy* NOTE FOLLOW UP SCH (20:00)
[2018-11-01] MEDS: Acetaminophen SUPP* 650 MG SUPP PR PRN (22:08)
[2018-11-01] MEDS: NS 0.9% 1000 ML** 1,000 ML IV SCH (22:14)
[2018-11-01] MEDS: Carvedilol TAB* 3.125 MG PO SCH (23:49)
[2018-11-01] MEDS: guaiFENesin ER TAB 600 MG PO SCH (23:50)
[2018-11-01] MEDS: Linezolid 600 MG IVPREMIX(*) 600 MG/300 ML BAG IVPB SCH ×2 (23:53→23:56)
--- NOTE | 2018-11-02 00:11 | HP ---
CC: Mattie Drew MD * HISTORY AND PHYSICAL: DATE OF ADMISSION: 11/01/18 PRIMARY CARE DOCTOR: Mattie Drew MD MY ATTENDING PHYSICIAN WHILE IN THE HOSPITAL: Dr. Luis Felpie Ramirez.* (DICTATED BY MARIANN SANZ) CHIEF COMPLAINT: Altered mental status x7 hours, fall. HISTORY OF PRESENT ILLNESS: Mr. Cramer is an 78-year-old male with past medical history significant for multiple CVAs with significant deficits and vascular dementia, coronary artery disease with heart failure, reduced ejection fraction, myelodysplastic syndrome, and hypertension, who presented to the emergency department after the second time in 24 hours due to the patient initially concerned over headache and altered mental status. The patient's states that he has not been himself for approximately 10 days. At this point, he has been struggling with intermittent nausea with vomiting and constipation requiring large doses of laxatives. The patient has not had any vomiting like feculent material nor coffee- ground material to this point though he has vomited several times. The patient's recent bowel movement was on Tuesday that is known per the . The patient was in the emergency department last night, had no fevers, no tachycardia, no reason for admission, no headache, no intracranial hemorrhage or other concerning features and was sent back to [facility]. The patient was monitored overnight and was still lethargic, much more than his baseline per his . The patient was stable overnight and this morning was still lethargic, however, at noon he was found down in his room with coffee-ground emesis around his mouth, having apparently scraped his head on the floor. The patient was at that time very lethargic and unable to relate a history. The patient came to the emergency department, was found to have a rectal temperature of 103.9, tachycardia at 120s, elevated respiratory rate, gurgling respirations and hypoxia requiring 10 L of oxygen. The patient did maintain a normal blood pressure. The patient was bolused given Levaquin and cefepime. In the emergency department, he was found to have no elevated white blood cell count, relatively unremarkable blood ABG, slightly elevated lactic acid, elevated CRP, negative urinalysis, negative chest x-ray, abdomen showing air-fluid levels without signs of abdominal dilatation. The patient has previously been evaluated for seizures multiple times and there has been concern for seizures, but none of them have been witnessed nor been seen on EEG, so he has not been started on seizure medications. The patient generally takes clear thin liquids without difficulty per his . At this time, he is having gurgling respirations and difficulty clearing his throat due to concern of sepsis of unknown origin, we are asked to evaluate the patient for admission to the hospital. PAST MEDICAL HISTORY: Coronary artery disease, heart failure, reduced ejection fraction most recent EF 40% to 45%, spinal stenosis, prostate cancer, nephrolithiasis, vascular dementia, myelodysplastic syndrome, hypertension, hyperlipidemia, history of multiple CVAs with left-sided weakness, homonymous hemianopia, glaucoma, macular degeneration. PAST SURGICAL HISTORY: Prostatectomy, quadruple bypass, back surgery. MEDICATIONS: Per records from [facility]: 1. Warfarin 5 mg p.o. Tuesday, Tuesday, Tuesday. 2. Warfarin 2.5 mg p.o. Tuesday, Tuesday, , Tuesday. 3. Spironolactone 12.5 mg p.o. daily. 4. Vitamin B12 1000 mcg p.o. daily. 5. Carvedilol 3.125 mg one-half tab p.o. twice daily. 6. Senna 2 tabs p.o. daily. 7. Travatan 1 drop both eyes bedtime. 8. Polyethylene glycol 17 g p.o. every other day. 9. Sertraline 150 mg p.o. daily. 10. Aspirin 81 mg p.o. daily. 11. Lipitor 10 mg p.o. daily. 12. Omeprazole 20 mg p.o. daily. 13. Vitamin D3 1000 units p.o. daily. 14. Mouth rinse 1 capful twice daily as needed. 15. Tylenol 650 mg p.o. q.8 hours as needed. 16. Ketoconazole 1 application topical daily. 17. Plaquenil 40 mg p.o. daily. 18. PreserVision AREDS 1 drop p.o. b.i.d. 19. Ferrous sulfate 325 mg p.o. every other day. 20. Vitamin C 500 mg p.o. daily. 21. Melatonin 300 mg p.o. daily. 22. Zofran 4 mg p.o. every 8 hours as needed for nausea. 23. Dulcolax suppository 1 suppository rectally every day if needed for bowel movements. 24. Fleet enema 1 enema every 3 days if needed for bowel movements. 25. Saline nasal spray 1 spray both nares as needed for nasal congestion. 26. Fluticasone 50 mcg 2 sprays both nares as needed for nasal congestion. 27. Diphenhydramine 25 mg p.o. q.4 hours as needed for allergies. ALLERGIES: SHELLFISH, TREE NUTS, VANCOMYCIN, LACTOSE, TREE and SHRUB POLLEN. FAMILY HISTORY: The patient's mother of unknown type of cancer. The patient's father of NH at 57. SOCIAL HISTORY: The patient smoked approximately 1 year in his late 20s. He drinks occasional alcohol. Denies any illicit drug use. 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 He is and surrogate decision maker would be his , [place]. The patient is a DNR. REVIEW OF SYSTEMS: A 14-point review of systems are reviewed and is negative as above in the HPI PHYSICAL EXAMINATION GENERAL: The patient is an 78-year-old male who appears stated age and sitting in the bed with gurgling respirations and tachypnea. VITAL SIGNS: Temperature 103.9, pulse rate 125, respiratory rate 28, oxygen saturation 93% on 10 L, blood pressure 130/81. HEENT: Head: Normocephalic, atraumatic. Sclerae anicteric. No conjunctival injection. Nasal mucosa moist. Oral mucosa moist. No pharyngeal erythema, discharge, or exudate. NECK: Supple, nontender. No lymphadenopathy. No carotid bruit auscultated. No JVD. RESPIRATORY: Coarse rhonchi heard in all lobes particularly with expiration, audible without auscultation. No adventitious lung sounds. No wheezing. HEART: Tachycardic. No clicks, murmurs, gallops or rubs. Pulse is 2+ in the dorsalis pedis, posterior tibialis, and radial areas. ABDOMEN: Soft, nontender, nondistended. Bowel sounds hypoactive in all 4 quadrants. Tympanic to percussion particularly over the left upper quadrant. GENITOURINARY: No suprapubic or CVA tenderness. SKIN: Clean, dry, intact. No rash. NEUROLOGIC: Lethargic, dense left sided weakness. Strength preserved in the right upper and lower extremities. Hemianopia. The patient is alert and oriented to self. Negative Brudzinski's and Kernig's sign. No nuchal rigidity. PSYCHIATRIC: Pleasant and cooperative. DIAGNOSTIC STUDIES/LAB DATA: Hemoglobin 13.2, platelet count 118. INR 2.3, aPTT 43.4, fibrinogen 410. Blood gas; pH 7.38, pCO2 43, pO2 88, pCO3 24.9, oxygen saturation 98.1. Sodium 138, potassium 4.5, chloride 100, carbon dioxide 31, anion gap 7, BUN 18, creatinine 1.13, glucose 160, lactic acid 2.2, repeat 1.2, calcium 9.5, bilirubin 1.0, AST 32, ALT 27, alkaline phosphatase 132 , creatinine kinase 164, troponin I 0.01, CRP 259.98, BNP 149, total protein 8.0 , albumin 4.3, globulin 3.7. Urine yellow positive urobilinogen, ascorbic acid. Studies: Chest x-ray read as no active cardiopulmonary disease. Brain CT read as no evidence for acute finding, multiple bilateral old infarcts, atrophies and findings suggestive of moderate to severe chronic small vessel ischemic changes. Electrocardiogram shows sinus tachycardia, no ST segment elevation or depression , left axis deviation, left bundle branch block pattern, compared to previous exam rate is faster. Abdomen x-ray from 11/01/18 read as there are a few air-fluid levels, bowels not dilated, gas extends to the rectum. ASSESSMENT AND PLAN: Mr. Cramer is an 78-year-old male with past medical history significant for multiple strokes, coronary artery disease, heart failure , reduced ejection fraction, hypertension, hyperlipidemia, myelodysplastic syndrome, who presents to the emergency department after a fall with possible coffee-ground emesis and a sepsis of unknown origin. The patient was admitted to the ICU for intensive monitoring, possible need for Vapotherm therapy, antibiotics and supportive care. 1. Sepsis of unknown origin. The patient has tachycardia, elevated temperature. The patient has no leukocytosis. The patient is not requiring advanced oxygen delivery systems at this time, but is tachypneic. The patient admitted to ICU as he may need Vapotherm later tonight. The patient already received a fluid bolus. He has no initial or subsequent hypotension, not requiring vasopressor agents at this time. The patient will be continued on fluids. The patient was given Levaquin and cefepime in the emergency department. There is no indication for double coverage of pseudomonas; however , the patient does need anaerobic coverage both for the concern of possible aspiration pneumonia or concern for possible intra- abdominal pathology given the patient's constipation and intermittent vomiting for over a week. The patient will have a CT of his chest, abdomen, and pelvis with IV contrast to assess for infiltrates, abscesses or other elucidating pathology. The patient will be started on linezolid due to VANCOMYCIN allergy as well as Zosyn. The patient's lactic acidosis has resolved. The patient does have a headache, high fevers, and altered mental status, but has no nuchal rigidity or positive other testing for meningitis. We will not perform a lumbar puncture at this time if the patient's mental status deteriorates significantly or he develops other signs of meningitis that should be considered. 2. Coffee-ground emesis. There is concern for possible gastrointestinal bleeding. This will be further elucidated by a gastric occult blood study as well as a CT of his chest, abdomen and pelvis to assess for pathology that might lead to strangulation of bowel, stomach, possible pathology suggestive of ulcers. The patient is not stable for an endoscopy at this point and will not be started empirically on PPI therapy given his concern for aspiration pneumonia as well as his normal hemoglobin and hematocrit. This may be considered down the line once the patient is more stable if there is any concern for GI bleeding. The patient will be n.p.o. except for meds at this time until he is more alert and able to handle his secretions and then a bedside swallow study should be performed. 3. Coronary artery disease. Hold the patient's statin and aspirin at this time , resume when gastrointestinal bleeding has been ruled out. The patient is tolerating pills better. 4. Dementia. Continue supportive care, avoid medications known to contribute delirium. 5. History of multiple cerebrovascular accidents. The patient has previously been evaluated on multiple times for seizures and there was some concern for seizures. It is possible that a seizure precipitated the patient's fall and aspiration event particularly given his other stressors or an EEG for the morning and avoid antibiotics that are known particularly to precipitate seizures, but this is not always possible. We will not start empiric anti- epileptic therapy at this time. 6. Hypertension. Continue the patient's carvedilol to avoid rebound angina. The patient will have very low dose. 7. Hyperlipidemia. Hold the patient's Lipitor. 8. DVT prophylaxis. The patient will be on warfarin, which will be held at this time and allowed to trend down by itself. This will not be reversed unless there are obvious signs of GI hemorrhage. 9. Code status. The patient would like to be a DNR and MOLST is filled out and on his chart. TIME SPENT: Approximately 75 minutes was spent on the admission of this patient , 30 of which was spent [id number] with the patient obtaining history and physical and discussing treatment plan. This plan was discussed with my attending, Dr. Luis Felipe Ramirez, and he is in agreement. MARIANN SANZ [id number]/[facility] #: [id number] DIEGO
[2018-11-02] MEDS: ZOSYN 3.375 GM Q8H per EXTENDED INFUSION IVPB SCH ×6 (01:23→18:00)
[2018-11-02 05:10] LABS: ABS Lymphocytes 0.9 10^3/ul (1.0-4.8); ABS Monocytes 0.2 10^3/ul (0-0.8); ABS Neutrophils 7.9 10^3/ul (1.5-7.7); Hematocrit 34 % (42-52); Hemoglobin 11.4 g/dL (14.0-18.0); Lymphocyte % 9.5 %; Mean Corpuscular HGB Conc 34 g/dL (31-36); Mean Corpuscular Hemoglobin 30 pg (27-31); Mean Corpuscular Volume 89 fL (80-94); Mean Platelet Volume 9.5 fL (7.4-10.4); Platelet Count 82 10^3/uL (150-450); Red Blood Count 3.78 10^6 /uL (4.18-5.48); Red Cell Distribution Width 18 % (10-15)
[2018-11-02 05:14] LABS: INR 2.97 (0.82-1.09)
[2018-11-02 05:28] LABS: Albumin 3.4 g/dL (3.2-5.2); Albumin/Globulin Ratio 1.3 (1-3); C Reactive Protein 195.94 mg/L (<8.01); Calcium 8.2 mg/dL (8.6-10.3); EGFR African American 70.5 (>60); EGFR Non-African American 58.3 (>60); Globulin 2.7 g/dL (2-4); Magnesium 1.5 mg/dL (1.9-2.7); Potassium 3.6 mmol/L (3.5-5.0); Total Bilirubin 1.4 mg/dL (0.2-1.0); Total Protein 6.1 g/dL (6.4-8.9)
[2018-11-02] MEDS ORDERED: Magnesium Sulfate 1 GM IV* 1 GM/100 ML BAG IV ONE (06:00)
[2018-11-02] MEDS: NS 0.9% 1000 ML** 1,000 ML IV SCH (06:14)
[2018-11-02] MEDS ORDERED: Albuterol/Ipratropium NEB.SOL* Albuterol 2.5 MG/Ipratropium 0.5 MG 3 ML INH SCH (09:00)
[2018-11-02] MEDS ORDERED: Pantoprazole TAB * 40 MG TAB PO SCH (09:00)
[2018-11-02] MEDS ORDERED: guaiFENesin 100 mg/5 ml LIQ unit dose cup PO PRN (09:59)
[2018-11-02] MEDS ORDERED: Lansoprazole SUSP* ORALSYR 3 MG/ML PO SCH (10:00)
[2018-11-02] MEDS: Carvedilol TAB* 3.125 MG PO SCH ×2 (10:06→20:12)
[2018-11-02] MEDS ORDERED: Succinylcholine* 20 MG/ML 10 ML VIAL ONE (10:14)
[2018-11-02] MEDS: Linezolid 600 MG IVPREMIX(*) 600 MG/300 ML BAG IVPB SCH ×3 (10:55→21:40)
[2018-11-02] MEDS: Albuterol/Ipratropium NEB.SOL* Albuterol 2.5 MG/Ipratropium 0.5 MG 3 ML INH SCH ×5 (10:59→23:09)
[2018-11-02] MEDS: guaiFENesin ER TAB 600 MG PO SCH (10:59)
--- NOTE | 2018-11-02 14:48 | EEG ---
ELECTROENCEPHALOGRAPHY: DATE OF STUDY: 11/02/18 - ROOM #ICU-06 DATE READ: 11/02/18 ORDERED BY: MARIANN Salinas CLINICAL PROBLEM: Mr. Cramer is an 78-year-old man who has history of dementia and stroke, who presented with headaches and altered mental status. The patient was found on the floor. This EEG was obtained to evaluate for epileptiform abnormalities or electrographic seizures. Ordered by Slade Caceres. MEDICATIONS: 1. Senokot. 2. Zofran. 3. Benzonatate. 4. Tylenol. 5. MiraLAX. 6. Linezolid. 7. Zosyn. 8. Pantoprazole. 9. Guaifenesin. 10. Carvedilol. CLINICAL STATE: Awake and drowsy. REPORT: The background consisted of mixed frequency slowing in the delta and theta range with appropriate organization and clearly defined anterior- posterior voltage. There was a slow waking background rhythm of 7 Hz, which was symmetrical and showed normal reactivity. Anteriorly, there was an expected pattern of lower voltage, irregular, mixed fast frequency. The attenuation of the occipital rhythm accompanied drowsiness. Hyperventilation and photic stimulation were not performed. Single electrode EKG showed normal sinus rhythm at a rate of 95 beats per minute. Throughout the recording, there were no electrographic seizures. CLINICAL IMPRESSION: This is an abnormal awake and drowsy EEG due to a slow posterior dominant rhythm and intermittent slowing. Otherwise, there was retained organization reactivity. These findings are suggestive of mild nonspecific encephalopathy. [id number]/[facility] #: [id number] MTDD
--- NOTE | 2018-11-02 16:17 | PN ---
Subjective Date of Service: 11/02/18 Interval History: Patient seen and examined. Per RN, WOB increased with course, wet breath sounds. Also appeared to choke on his meds with apple sauce and could not tolerated swallowing. Patient not tolerated oxymask. Call to respiratory for ABG and vapotherm. Patient is confused at baseline, can make some needs known, but is in respiratory distress. Objective Active Medications: Acetaminophen (Tylenol Tab*) 650 mg PO Q6H PRN PRN Reason: MILD PAIN or TEMP > 100.4 Acetaminophen (Tylenol Supp*) 650 mg ID Q4H PRN PRN Reason: TEMPERATURE > 100.4 Last Admin: 11/01/18 22:08 Dose: 650 mg Albuterol/Ipratropium (Duoneb (Albuterol 2.5 Mg/Ipratropium 0.5 Mg)) 1 neb INH RT.[id number]-PARAN AWAKE [facility] Last Admin: 11/02/18 14:49 Dose: 1 neb Carvedilol (Coreg Tab*) 1.5625 mg PO BID [facility] Last Admin: 11/02/18 10:06 Dose: 1.5625 mg Linezolid (Zyvox 600 Mg Ivpremix(*)) 600 mg in 300 mls @ 300 mls/hr IVPB Q12H [facility] Last Admin: 11/02/18 11:51 Dose: 300 mls/hr Piperacillin Sod/Tazobactam (Sod 3.375 gm/ Sodium Chloride) 100 mls @ 25 mls/ hr IVPB Q8H [facility] Last Admin: 11/02/18 10:07 Dose: 25 mls/hr Ondansetron HCl (Zofran Inj*) 4 mg IV Q6H PRN PRN Reason: NAUSEA Pantoprazole Sodium (Protonix Iv*) 40 mg IV DAILY [facility] Pharmacy Consult (Zosyn Per Pharmacy*) 1 note FOLLOW UP .ZOSYN PER PHARMACY [facility] Polyethylene Glycol/Electrolytes (Miralax*) 17 gm PO EVERY OTHER DAY [facility] Senna (Senokot 8.6 Mg Tab*) 2 tab PO DAILY PRN PRN Reason: CONSTIPATION Vital Signs - 8 hr 11/02/18 11/02/18 11/02/18 08:15 08:31 08:45 Temperature Pulse Rate 94 99 93 Respiratory 23 16 24 Rate Blood Pressure 106/58 121/61 109/54 (mmHg) O2 Sat by Pulse 97 100 96 Oximetry 11/02/18 11/02/18 11/02/18 09:00 09:01 09:15 Temperature Pulse Rate 95 94 93 Respiratory 16 26 27 Rate Blood Pressure 106/52 106/54 (mmHg) O2 Sat by Pulse 87 86 93 Oximetry 11/02/18 11/02/18 11/02/18 09:30 09:45 10:00 Temperature Pulse Rate 94 93 92 Respiratory 26 29 17 Rate Blood Pressure 113/51 104/54 111/55 (mmHg) O2 Sat by Pulse 96 92 97 Oximetry 11/02/18 11/02/18 11/02/18 10:15 10:30 10:45 Temperature Pulse Rate 100 95 97 Respiratory 29 21 20 Rate Blood Pressure 130/63 110/54 124/65 (mmHg) O2 Sat by Pulse 99 91 100 Oximetry 11/02/18 11/02/18 11/02/18 11:00 11:05 11:15 Temperature Pulse Rate 91 90 95 Respiratory 25 100 27 Rate Blood Pressure 112/58 117/60 (mmHg) O2 Sat by Pulse 100 26 100 Oximetry 11/02/18 11/02/18 11/02/18 11:30 11:45 12:00 Temperature 99.9 F Pulse Rate 91 100 99 Respiratory 26 24 21 Rate Blood Pressure 115/57 111/59 116/59 (mmHg) O2 Sat by Pulse 100 92 91 Oximetry 11/02/18 11/02/18 11/02/18 12:15 12:30 12:42 Temperature Pulse Rate 93 94 93 Respiratory 25 31 27 Rate Blood Pressure 119/55 116/60 116/60 (mmHg) O2 Sat by Pulse 100 100 100 Oximetry 11/02/18 11/02/18 11/02/18 12:45 13:00 13:15 Temperature Pulse Rate 95 89 91 Respiratory 27 25 27 Rate Blood Pressure 118/65 113/54 113/55 (mmHg) O2 Sat by Pulse 100 100 100 Oximetry 11/02/18 11/02/18 11/02/18 13:30 13:45 14:00 Temperature Pulse Rate 89 93 92 Respiratory 23 28 23 Rate Blood Pressure 111/54 111/56 112/56 (mmHg) O2 Sat by Pulse 99 100 99 Oximetry 11/02/18 11/02/18 11/02/18 14:15 14:30 14:45 Temperature Pulse Rate 91 96 91 Respiratory 31 24 23 Rate Blood Pressure 117/61 120/60 118/61 (mmHg) O2 Sat by Pulse 100 100 100 Oximetry 11/02/18 11/02/18 11/02/18 14:49 15:00 15:01 Temperature Pulse Rate 100 96 97 Respiratory 95 28 14 Rate Blood Pressure 117/59 (mmHg) O2 Sat by Pulse 18 100 98 Oximetry 11/02/18 11/02/18 11/02/18 15:15 15:30 15:45 Temperature Pulse Rate 93 93 89 Respiratory 23 25 25 Rate Blood Pressure 115/53 110/54 114/54 (mmHg) O2 Sat by Pulse 99 93 98 Oximetry 11/02/18 11/02/18 16:00 16:01 Temperature Pulse Rate 91 95 Respiratory 20 20 Rate Blood Pressure 106/64 (mmHg) O2 Sat by Pulse 99 100 Oximetry Oxygen Devices in Use Now: High Flow Heated Nasal Cannula Appearance: alert, mod-sever distress Eyes: No Scleral Icterus Ears/Nose/Mouth/Throat: Mucous Membranes Moist Neck: NL Appearance and Movements; NL JVP, Trachea Midline Respiratory: - - tachypnea, course/wet breath sound, rhonchi throughout all lung reddy Cardiovascular: NL Sounds; No Murmurs; No JVD, RRR Abdominal: NL Sounds; No Tenderness; No Distention Extremities: No Edema, No Clubbing, Cyanosis Neurological: - - confused Nutrition: - - NPO Result Diagrams: 11/02/18 04:53 11/02/18 04:53 Microbiology and Other Data: Microbiology 11/01/18 14:30 Aerobic Blood Culture - Preliminary Blood Venous No Growth Day 1 Anaerobic Blood Culture - Preliminary No Growth Day 1 11/01/18 14:20 Aerobic Blood Culture - Preliminary Blood Venous No Growth Day 1 Anaerobic Blood Culture - Preliminary No Growth Day 1 11/02/18 05:26 Legionella Urinary Antigen - Final Urine Negative Legionella Antigen Streptococcus pneumoniae Ag Screen - Final Negative S. 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 Prior CT scan of the chest dated 06/19/2017 showed no change in the diameter the mid ascending aorta from today's study. Initial report created on 11/01/2018 9:52:39 PM EDT PROCEDURE INFORMATION: Exam: CT Chest With Contrast Exam date and time: 11/01/2018 8:42 PM Clinical history: 78 years old, male; Abdominal pain; Generalized; Other: Unknown; Additional info: Sepsis unknown origin ? pna vs intraabdominal path TECHNIQUE: Imaging protocol: Computed tomography of the chest with intravenous contrast. Radiation optimization: All CT scans at this facility use at least one of these dose optimization techniques: automated exposure control; mA and/or kV adjustment per patient size (includes targeted exams where dose is matched to clinical indication); or iterative reconstruction. Contrast material: OMNI 300; Contrast volume: 120 ml; Contrast route: IV; COMPARISON: C/A/P WO CT CHEST/ABD/PEL W/O 06/19/2017 2:04 PM FINDINGS: Limitations: Motion artifacts. Lungs: Consolidation of both lower lungs. The left lung being more involved than the right. Small lingular and right middle lung infiltrate. Pleural space: Small bilateral pleural effusions. No pneumothorax. Heart: Patient status post open heart surgery. Cardiac size is mildly enlarged. Severe coronary calcification. Mediastinum: No mediastinal mass. Small hiatal hernia. Aorta: Atheromatous changes involving the thoracic aorta. Ectasia of the ascending aorta. AP length of the mid ascending aorta is 4.2 cm. The AP length of the descending thoracic aorta at the level of the nohelia is 2.8 cm. Lymph nodes: No mediastinal adenopathy. Bones/joints: Degenerative changes of both shoulders. No overlapping rib fractures. Spondylotic changes of the thoracic spine. Soft tissues: Unremarkable. Stomach and bowel: Anterior confluent osteophyte formation from the cervical thoracic junction to the thoracolumbar junction. IMPRESSION: Bilateral lower lobe consolidation and small right middle lung and lingular infiltrates. The left lung being more involved than the right. This could represent a multilobar pneumonia. Small associated pleural effusions. Left greater than right. [facility] Patient Name:REYNALDO FREEMAN MR:[id number] : 1940 PROCEDURE INFORMATION: Exam: CT Abdomen and Pelvis With Contrast Exam date and time: 11/01/2018 8:42 PM Clinical history: 78 years old, male; Abdominal pain; Generalized; Other: Unknown; Additional info: Sepsis unknown origin ? pna vs intraabdominal path TECHNIQUE: Imaging protocol: Computed tomography of the abdomen and pelvis with intravenous contrast. Radiation optimization: All CT scans at this facility use at least one of these dose optimization techniques: automated exposure control; mA and/or kV adjustment per patient size (includes targeted exams where dose is matched to clinical indication); or iterative reconstruction. Contrast material: OMNI 300; Contrast volume: 120 ml; Contrast route: IV; COMPARISON: C/A/P WO CT CHEST/ABD/PEL W/O 06/19/2017 2:04 PM FINDINGS: Liver: Normal. No mass. Gallbladder and bile ducts: Calcified stone located in the neck of the gallbladder. This was seen on prior CT scan dated 06/19/2017 and is unchanged in position. Pancreas: Normal. No ductal dilation. Spleen: Small punctate splenic calcification. The spleen is of normal size. Adrenals: Normal. No mass. Kidneys and ureters: Left renal cortical cyst measuring 3.9 cm in length. This has a density of 22 Hounsfield units. No hydronephrosis or nephrolithiasis. Stomach and bowel: No bowel obstruction. Diverticular changes involving the colon. No evidence of acute diverticulitis. Appendix: No evidence of appendicitis. Intraperitoneal space: Unremarkable. No free air. No significant fluid collection. Vasculature: Calcification of the wall of the abdominal aorta and iliac arteries. No aneurysm. Lymph nodes: Unremarkable. No enlarged lymph nodes. Bladder: Unremarkable as visualized. Reproductive: Unremarkable as visualized. Bones/joints: Spondylotic changes lumbar spine. Laminectomy from L3 to L5. No evidence of fracture or malalignment. Several threaded screws coursing through the left hip. Soft tissues: Unremarkable. Other findings: Limitation: Artifact created by the right arm. IMPRESSION: 1. No acute findings. 2. Cholelithiasis. Assess/Plan/Problems-Billing Assessment: This is an 78 year old male with complex medical history that presented to the ED with report of AMS, vomiting and fever. - Patient Problems (1) Sepsis Comment: - With tachycardia, fever >103 and source likely aspiration pneumonia - s/p IVF bolus - Empirically on linezolid 2/2 multiple allergies - Follow blood and sputum cultures (2) Acute respiratory failure Code(s): J96.00 - ACUTE RESPIRATORY FAILURE, UNSP W HYPOXIA OR HYPERCAPNIA SNOMED Code(s): 14718717 Comment: - 2/2 above - PO2 76% on last ABG, vapotherm initiated - Vapotherm being titrated to maintain sats >92% - Needs aggressive pulmonary toilet - Started duonebs and metanebs, discussed with respiratory - Wean O2 as tolerated (3) Multilobar lung infiltrate Code(s): R91.8 - OTHER NONSPECIFIC ABNORMAL FINDING OF LUNG FIELD SNOMED Code( s): 9471888095975 Comment: - Likely 2/2 aspiration/vomitus prior to arrival with questioable coffee ground emesis patient is on AC with coumadin which is now held - Multiple allergies per record - No WBC count, fevers improving - Continue linezolid, follow blood and sputum cultures (4) Coronary artery disease Code(s): I25.10 - ATHSCL HEART DISEASE OF [place] CORONARY ARTERY W/O ANG PCTRS SNOMED Code(s): 75777464 Comment: - Hx of CABG - Continue carvedilol, aspirin, atorvastatin when no longer NPO (5) GERD (gastroesophageal reflux disease) Code(s): K21.9 - GASTRO-ESOPHAGEAL REFLUX DISEASE WITHOUT ESOPHAGITIS SNOMED Code(s): 680363336 Comment: - pantoprazole IV (6) H/O: CVA (cerebrovascular accident) Code(s): Z86.73 - PRSNL HX OF TIA (TIA), AND CEREB INFRC W/O RESID DEFICITS SNOMED Code(s): 730146147 Comment: - Multiple prior infarcts, 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 - Holding Coumadin, piossible blood in emesis, however, H&H stable, no further vomiting or bleeding noted (7) Hypertension Code(s): I10 - ESSENTIAL (PRIMARY) HYPERTENSION SNOMED Code(s): 12287461 Comment: - BP stable, restart PO meds after swallow eval (8) Myelodysplastic disease Code(s): C94.6 - MYELODYSPLASTIC DISEASE, NOT CLASSIFIED SNOMED Code(s): 986530511 Comment: - Pancytopenia at baseline, continue to monitor (9) DVT prophylaxis Code(s): BST4708 - SNOMED Code(s): 819004400 Comment: - SCDs only, INR high, high risk of bleeding, hold coumadin (10) DNR (do not resuscitate) Comment: - MOLST updated with /HCP, DNR, trial of intubation for rescue airway only , she states she understands the severity of his condition and that if intubated and vented, she may have to make the decision to withdraw care. Will continue vapotherm and non-invasive measures for now and monitor ABGs Status and Disposition: Inpatient: Condition guarded.
[2018-11-02] MEDS ORDERED: Sodium Phosphate ADULT ENEMA* 118 ml bottle PR ONE (22:30)
[2018-11-03] MEDS: ZOSYN 3.375 GM Q8H per EXTENDED INFUSION IVPB SCH ×6 (02:03→18:25)
[2018-11-03 05:02] LABS: ABS Lymphocytes 0.6 10^3/ul (1.0-4.8); ABS Monocytes 0.2 10^3/ul (0-0.8); ABS Neutrophils 3.4 10^3/ul (1.5-7.7); Hematocrit 29 % (42-52); Hemoglobin 9.9 g/dL (14.0-18.0); Lymphocyte % 14.2 %; Mean Corpuscular HGB Conc 34 g/dL (31-36); Mean Corpuscular Hemoglobin 30 pg (27-31); Mean Corpuscular Volume 88 fL (80-94); Mean Platelet Volume 9.6 fL (7.4-10.4); Platelet Count 71 10^3/uL (150-450); Red Blood Count 3.34 10^6 /uL (4.18-5.48); Red Cell Distribution Width 18 % (10-15); White Blood Count 4.2 10^3/uL (3.5-10.8)
[2018-11-03 05:18] LABS: Albumin 3.3 g/dL (3.2-5.2); Albumin/Globulin Ratio 1.1 (1-3); BUN/Creatinine Ratio 13.3 (8-20); Calcium 8.4 mg/dL (8.6-10.3); EGFR African American 82.2 (>60); Globulin 3.1 g/dL (2-4); Magnesium 1.9 mg/dL (1.9-2.7); Phosphorus 2.4 mg/dL (2.5-5.0); Potassium 3.4 mmol/L (3.5-5.0); Total Protein 6.4 g/dL (6.4-8.9)
[2018-11-03] MEDS ORDERED: KCL 10 MEQ/50 ML IVPREMIX* 10 MEQ/50 ML BAG IV ONE (06:30)
[2018-11-03] MEDS: Albuterol/Ipratropium NEB.SOL* Albuterol 2.5 MG/Ipratropium 0.5 MG 3 ML INH SCH ×6 (07:27→23:25)
[2018-11-03] MEDS: Acetylcysteine INHALATION SOL* 200 MG/ML NEB.SOLN 10 ML INH SCH ×4 (08:17→19:23)
[2018-11-03] MEDS: Pantoprazole IV* 40 MG IV SCH (08:45)
[2018-11-03] MEDS ORDERED: Polyethylene Glycol 3350* 17 GM PACKET PO SCH (09:00)
[2018-11-03] MEDS: Carvedilol TAB* 3.125 MG PO SCH ×2 (09:50→21:33)
--- NOTE | 2018-11-03 16:50 | PN ---
Subjective Date of Service: 11/03/18 Interval History: Patient seen and examined. Remains confused with left sided deficit at baseline. Very sleepy today, but was able to wean off vapotherm to nasal canula. Chart reviewed, no acute overnight events noted. Objective Active Medications: Acetaminophen (Tylenol Tab*) 650 mg PO Q6H PRN PRN Reason: MILD PAIN or TEMP > 100.4 Acetaminophen (Tylenol Supp*) 650 mg MO Q4H PRN PRN Reason: TEMPERATURE > 100.4 Last Admin: 11/01/18 22:08 Dose: 650 mg Acetylcysteine (Mucomyst Inhalation Nora*) 400 mg INH Q4H [facility] Last Admin: 11/03/18 15:31 Dose: 400 mg Albuterol/Ipratropium (Duoneb (Albuterol 2.5 Mg/Ipratropium 0.5 Mg)) 1 neb INH [id number] AWAKE [facility] Last Admin: 11/03/18 15:31 Dose: 1 neb Carvedilol (Coreg Tab*) 1.5625 mg PO BID [facility] Last Admin: 11/03/18 09:50 Dose: Not Given Piperacillin Sod/Tazobactam (Sod 3.375 gm/ Sodium Chloride) 100 mls @ 25 mls/ hr IVPB Q8H [facility] Last Admin: 11/03/18 10:32 Dose: 25 mls/hr Ondansetron HCl (Zofran Inj*) 4 mg IV Q6H PRN PRN Reason: NAUSEA Pantoprazole Sodium (Protonix Iv*) 40 mg IV DAILY [facility] Last Admin: 11/03/18 08:45 Dose: 40 mg Pharmacy Consult (Zosyn Per Pharmacy*) 1 note FOLLOW UP .ZOSYN PER PHARMACY [facility] Polyethylene Glycol/Electrolytes (Miralax*) 17 gm PO EVERY OTHER DAY [facility] Last Admin: 11/03/18 09:50 Dose: Not Given Senna (Senokot 8.6 Mg Tab*) 2 tab PO DAILY PRN PRN Reason: CONSTIPATION Vital Signs - 8 hr 11/03/18 11/03/18 11/03/18 08:46 09:00 09:01 Temperature Pulse Rate 89 86 Respiratory 22 17 17 Rate Blood Pressure 141/63 116/56 (mmHg) O2 Sat by Pulse 100 100 Oximetry 11/03/18 11/03/18 11/03/18 09:15 09:31 09:45 Temperature Pulse Rate 91 88 89 Respiratory 20 23 22 Rate Blood Pressure 124/57 121/57 117/55 (mmHg) O2 Sat by Pulse 100 100 96 Oximetry 11/03/18 11/03/18 11/03/18 10:00 10:01 10:15 Temperature Pulse Rate 91 95 Respiratory 15 14 17 Rate Blood Pressure 120/52 131/67 (mmHg) O2 Sat by Pulse 100 100 Oximetry 11/03/18 11/03/18 11/03/18 10:31 10:46 11:00 Temperature Pulse Rate 90 97 93 Respiratory 22 24 26 Rate Blood Pressure 132/65 136/61 (mmHg) O2 Sat by Pulse 100 100 100 Oximetry 11/03/18 11/03/18 11/03/18 11:01 11:15 11:30 Temperature Pulse Rate 92 87 89 Respiratory 25 27 26 Rate Blood Pressure 137/61 126/62 125/62 (mmHg) O2 Sat by Pulse 100 100 100 Oximetry 11/03/18 11/03/18 11/03/18 11:45 12:00 12:15 Temperature 98.5 F Pulse Rate 95 88 86 Respiratory 25 24 21 Rate Blood Pressure 128/55 117/56 100/61 (mmHg) O2 Sat by Pulse 100 100 100 Oximetry 11/03/18 11/03/18 11/03/18 12:30 12:45 13:00 Temperature Pulse Rate 85 84 86 Respiratory 22 23 25 Rate Blood Pressure 121/56 116/56 106/58 (mmHg) O2 Sat by Pulse 98 100 100 Oximetry 11/03/18 11/03/18 11/03/18 13:15 13:30 14:00 Temperature Pulse Rate 88 90 84 Respiratory 22 22 17 Rate Blood Pressure 125/59 132/63 (mmHg) O2 Sat by Pulse 100 100 100 Oximetry 11/03/18 11/03/18 11/03/18 15:00 15:01 15:36 Temperature Pulse Rate 90 85 Respiratory 21 21 26 Rate Blood Pressure (mmHg) O2 Sat by Pulse 91 100 Oximetry 11/03/18 11/03/18 16:00 16:01 Temperature Pulse Rate 89 Respiratory 24 26 Rate Blood Pressure 131/63 (mmHg) O2 Sat by Pulse 92 Oximetry Oxygen Devices in Use Now: Nasal Cannula Appearance: sleepy, NAD Eyes: PERRLA Ears/Nose/Mouth/Throat: Mucous Membranes Moist Neck: NL Appearance and Movements; NL JVP, Trachea Midline Respiratory: - - course breath sounds throughout Cardiovascular: NL Sounds; No Murmurs; No JVD, RRR, No Edema Extremities: No Edema, No Clubbing, Cyanosis Neurological: - - confused Nutrition: - - NPO Result Diagrams: 11/03/18 04:41 11/03/18 04:41 Microbiology and Other Data: Microbiology 11/01/18 14:30 Aerobic Blood Culture - Preliminary Blood Venous No Growth Day 1 Anaerobic Blood Culture - Preliminary No Growth Day 1 11/01/18 14:20 Aerobic Blood Culture - Preliminary Blood Venous No Growth Day 1 Anaerobic Blood Culture - Preliminary No Growth Day 1 11/02/18 05:26 Legionella Urinary Antigen - Final Urine Negative Legionella Antigen Streptococcus pneumoniae Ag Screen - Final Negative S. pneumo Antigen 11/01/18 19:27 Gram Stain - Final Sputum 11/01/18 23:12 Nasal Screen MRSA (PCR) - Final Nasal Mrsa Not Detected Diagnostic Imaging: Patient Name: REYNALDO FREEMAN Medical Record#: [id number] Ordering Physician: Slade WAITE Acct.#: [id number] : 1940 Age: 78 Sex: M Location: [facility] Exam Date: 11/01/181920 ADM Status: ADM IN Order Information: CT CHEST/ABD/PEL W Accession Number: [id number] CPT: 73576 ADDENDUM Addendum created by Easton Uriostegui MD on 11/02/2018 12:56:53 AM EDT Recommend followup of the thoracic arch ectasia per institutional guidelines. Prior CT scan of the chest dated 06/19/2017 showed no change in the diameter the mid ascending aorta from today's study. Initial report created on 11/01/2018 9:52:39 PM EDT PROCEDURE INFORMATION: Exam: CT Chest With Contrast Exam date and time: 11/01/2018 8:42 PM Clinical history: 78 years old, male; Abdominal pain; Generalized; Other: Unknown; Additional info: Sepsis unknown origin ? pna vs intraabdominal path TECHNIQUE: Imaging protocol: Computed tomography of the chest with intravenous contrast. Radiation optimization: All CT scans at this facility use at least one of these dose optimization techniques: automated exposure control; mA and/or kV adjustment per patient size (includes targeted exams where dose is matched to clinical indication); or iterative reconstruction. Contrast material: OMNI 300; Contrast volume: 120 ml; Contrast route: IV; COMPARISON: C/A/P WO CT CHEST/ABD/PEL W/O 06/19/2017 2:04 PM FINDINGS: Limitations: Motion artifacts. Lungs: Consolidation of both lower lungs. The left lung being more involved than the right. Small lingular and right middle lung infiltrate. Pleural space: Small bilateral pleural effusions. No pneumothorax. Heart: Patient status post open heart surgery. Cardiac size is mildly enlarged. Severe coronary calcification. Mediastinum: No mediastinal mass. Small hiatal hernia. Aorta: Atheromatous changes involving the thoracic aorta. Ectasia of the ascending aorta. AP length of the mid ascending aorta is 4.2 cm. The AP length of the descending thoracic aorta at the level of the nohelia is 2.8 cm. Lymph nodes: No mediastinal adenopathy. Bones/joints: Degenerative changes of both shoulders. No overlapping rib fractures. Spondylotic changes of the thoracic spine. Soft tissues: Unremarkable. Stomach and bowel: Anterior confluent osteophyte formation from the cervical thoracic junction to the thoracolumbar junction. IMPRESSION: Bilateral lower lobe consolidation and small right middle lung and lingular infiltrates. The left lung being more involved than the right. This could represent a multilobar pneumonia. Small associated pleural effusions. Left greater than right. [facility] Patient Name:REYNALDO FREEMAN MR:[id number] : 1940 PROCEDURE INFORMATION: Exam: CT Abdomen and Pelvis With Contrast Exam date and time: 11/01/2018 8:42 PM Clinical history: 78 years old, male; Abdominal pain; Generalized; Other: Unknown; Additional info: Sepsis unknown origin ? pna vs intraabdominal path TECHNIQUE: Imaging protocol: Computed tomography of the abdomen and pelvis with intravenous contrast. Radiation optimization: All CT scans at this facility use at least one of these dose optimization techniques: automated exposure control; mA and/or kV adjustment per patient size (includes targeted exams where dose is matched to clinical indication); or iterative reconstruction. Contrast material: OMNI 300; Contrast volume: 120 ml; Contrast route: IV; COMPARISON: C/A/P WO CT CHEST/ABD/PEL W/O 06/19/2017 2:04 PM FINDINGS: Liver: Normal. No mass. Gallbladder and bile ducts: Calcified stone located in the neck of the gallbladder. This was seen on prior CT scan dated 06/19/2017 and is unchanged in position. Pancreas: Normal. No ductal dilation. Spleen: Small punctate splenic calcification. The spleen is of normal size. Adrenals: Normal. No mass. Kidneys and ureters: Left renal cortical cyst measuring 3.9 cm in length. This has a density of 22 Hounsfield units. No hydronephrosis or nephrolithiasis. Stomach and bowel: No bowel obstruction. Diverticular changes involving the colon. No evidence of acute diverticulitis. Appendix: No evidence of appendicitis. Intraperitoneal space: Unremarkable. No free air. No significant fluid collection. Vasculature: Calcification of the wall of the abdominal aorta and iliac arteries. No aneurysm. Lymph nodes: Unremarkable. No enlarged lymph nodes. Bladder: Unremarkable as visualized. Reproductive: Unremarkable as visualized. Bones/joints: Spondylotic changes lumbar spine. Laminectomy from L3 to L5. No evidence of fracture or malalignment. Several threaded screws coursing through the left hip. Soft tissues: Unremarkable. Other findings: Limitation: Artifact created by the right arm. IMPRESSION: 1. No acute findings. 2. Cholelithiasis. Assess/Plan/Problems-Billing Assessment: This is an 78 year old male with complex medical history that presented to the ED with report of AMS, vomiting and fever. - Patient Problems (1) Sepsis Comment: - With tachycardia, fever >103 and source likely aspiration pneumonia - s/p IVF bolus - Empirically on linezolid/zosyn 2/2 multiple allergies, now on single agent zosyn and responding well - Follow blood and sputum cultures (2) Acute respiratory failure Code(s): J96.00 - ACUTE RESPIRATORY FAILURE, UNSP W HYPOXIA OR HYPERCAPNIA SNOMED Code(s): 15533790 Comment: - 2/2 above - PO2 76% on last ABG, vapotherm initiated, now weaned down to NC - Continue duonebs and metanebs, chest PT and pulmonary toilet discussed with respiratory - Added mucomyst nebs (3) Multilobar lung infiltrate Code(s): R91.8 - OTHER NONSPECIFIC ABNORMAL FINDING OF LUNG FIELD SNOMED Code( s): 2121228360981 Comment: - Likely 2/2 aspiration/vomitus prior to arrival with questioable coffee ground emesis patient is on AC with coumadin which is now held - Multiple allergies per record - No WBC count, fevers improving - Continue zosyn per pharmacy, follow blood and sputum cultures - Needs speech swallow eval when more alert (4) Coronary artery disease Code(s): I25.10 - ATHSCL HEART DISEASE OF [place] CORONARY ARTERY W/O ANG PCTRS SNOMED Code(s): 19165863 Comment: - Hx of CABG - Continue carvedilol, aspirin, atorvastatin when no longer NPO - Trop negative (5) GERD (gastroesophageal reflux disease) Code(s): K21.9 - GASTRO-ESOPHAGEAL REFLUX DISEASE WITHOUT ESOPHAGITIS SNOMED Code(s): 855463561 Comment: - pantoprazole IV (6) H/O: CVA (cerebrovascular accident) Code(s): Z86.73 - PRSNL HX OF TIA (TIA), AND CEREB INFRC W/O RESID DEFICITS SNOMED Code(s): 652924913 Comment: - Multiple prior infarcts, 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 - Holding Coumadin, piossible blood in emesis, however, H&H stable, no further vomiting or bleeding noted (7) Hypertension Code(s): I10 - ESSENTIAL (PRIMARY) HYPERTENSION SNOMED Code(s): 65391892 Comment: - BP stable, restart PO meds after swallow eval (8) Myelodysplastic disease Code(s): C94.6 - MYELODYSPLASTIC DISEASE, NOT CLASSIFIED SNOMED Code(s): 704393989 Comment: - Pancytopenia at baseline, continue to monitor (9) DVT prophylaxis Code(s): XOP2121 - SNOMED Code(s): 729406596 Comment: - SCDs only, INR high, high risk of bleeding, hold coumadin (10) DNR (do not resuscitate) Comment: - MOLST updated with /HCP, DNR, trial of intubation for rescue airway only , she states she understands the severity of his condition and that if intubated and vented, she may have to make the decision to withdraw care. Will continue vapotherm and non-invasive measures for now and monitor ABGs Status and Disposition: Inpatient: Condition guarded. Critical care time 60 minutes.
[2018-11-04] MEDS: Acetylcysteine INHALATION SOL* 200 MG/ML NEB.SOLN 10 ML INH SCH ×5 (01:25→15:42)
[2018-11-04] MEDS: ZOSYN 3.375 GM Q8H per EXTENDED INFUSION IVPB SCH ×6 (02:04→19:28)
[2018-11-04] MEDS: Albuterol/Ipratropium NEB.SOL* Albuterol 2.5 MG/Ipratropium 0.5 MG 3 ML INH SCH ×6 (03:02→20:05)
[2018-11-04 05:07] LABS: ABS Lymphocytes 0.3 10^3/ul (1.0-4.8); ABS Monocytes 0.1 10^3/ul (0-0.8); ABS Neutrophils 2.8 10^3/ul (1.5-7.7); Hematocrit 30 % (42-52); Hemoglobin 9.9 g/dL (14.0-18.0); Lymphocyte % 10.2 %; Mean Corpuscular HGB Conc 33 g/dL (31-36); Mean Corpuscular Hemoglobin 29 pg (27-31); Mean Corpuscular Volume 88 fL (80-94); Mean Platelet Volume 9.1 fL (7.4-10.4); Platelet Count 58 10^3/uL (150-450); Red Blood Count 3.38 10^6 /uL (4.18-5.48); Red Cell Distribution Width 18 % (10-15); White Blood Count 3.3 10^3/uL (3.5-10.8)
[2018-11-04 05:16] LABS: Albumin 3.3 g/dL (3.2-5.2); BUN/Creatinine Ratio 18.8 (8-20); Calcium 8.6 mg/dL (8.6-10.3); EGFR African American 112.5 (>60); Globulin 3.4 g/dL (2-4); Potassium 3.6 mmol/L (3.5-5.0); Total Bilirubin 1.1 mg/dL (0.2-1.0); Total Protein 6.7 g/dL (6.4-8.9)
[2018-11-04] MEDS: Pantoprazole IV* 40 MG IV SCH (08:41)
[2018-11-04 12:06] LABS: INR 2.07 (0.82-1.09)
[2018-11-04] MEDS: Carvedilol TAB* 3.125 MG PO SCH (14:25)
--- NOTE | 2018-11-04 15:19 | PN ---
Subjective Date of Service: 11/04/18 Interval History: Mr. Cramer is feeling fine this morning. He offers no complaints. Getting a neb treatment on my exam and not particularly interested in waking to speak with me. Denies CP, SOB. Nursing and RT report decrease in oxygen requirements. No emesis. [place] tinged sputum. Family History: Unchanged from Admission Social History: Unchanged from Admission Past Medical History: Unchanged from Admission Objective Active Medications: Acetaminophen (Tylenol Tab*) 650 mg PO Q6H PRN MILD PAIN or TEMP > 100.4 Acetylcysteine (Mucomyst Inhalation Nora*) 400 mg INH Q4H [facility] Albuterol/Ipratropium (Duoneb (Albuterol 2.5 Mg/Ipratropium 0.5 Mg)) 1 neb INH RT.[id number] AWAKE [facility] Carvedilol (Coreg Tab*) 1.5625 mg PO BID [facility] Piperacillin Sod/Tazobactam (Sod 3.375 gm/ Sodium Chloride) 100 mls @ 25 mls/ hr IVPB Q8H [facility] Ondansetron HCl (Zofran Inj*) 4 mg IV Q6H PRN NAUSEA Pantoprazole Sodium (Protonix Iv*) 40 mg IV DAILY [facility] Polyethylene Glycol/Electrolytes (Miralax*) 17 gm PO EVERY OTHER DAY [facility] Senna (Senokot 8.6 Mg Tab*) 2 tab PO DAILY PRN CONSTIPATION Vital Signs - 8 hr 11/04/18 11/04/18 11/04/18 07:30 08:00 08:30 Temperature 98.1 F Pulse Rate 86 88 89 Respiratory 23 29 27 Rate Blood Pressure 138/64 143/66 142/72 (mmHg) O2 Sat by Pulse 95 95 98 Oximetry 11/04/18 11/04/18 11/04/18 09:00 09:01 09:30 Temperature Pulse Rate 87 86 97 Respiratory 27 30 49 Rate Blood Pressure 139/64 152/75 (mmHg) O2 Sat by Pulse 100 100 100 Oximetry 11/04/18 11/04/18 11/04/18 10:00 10:30 10:51 Temperature Pulse Rate 92 98 100 Respiratory 32 15 89 Rate Blood Pressure 148/73 149/78 (mmHg) O2 Sat by Pulse 100 100 23 Oximetry 11/04/18 11/04/18 11/04/18 11:00 12:00 13:07 Temperature 99.7 F 100.0 F Pulse Rate 90 90 Respiratory 27 20 Rate Blood Pressure 148/65 (mmHg) O2 Sat by Pulse 100 98 Oximetry Oxygen Devices in Use Now: Nasal Cannula - 3L Appearance: Elderly male sitting in bed in NAD Eyes: No Scleral Icterus Ears/Nose/Mouth/Throat: Mucous Membranes Moist Neck: NL Appearance and Movements; NL JVP, Trachea Midline Respiratory: Symmetrical Chest Expansion and Respiratory Effort, - - Rhonchi throughout Cardiovascular: NL Sounds; No Murmurs; No JVD Abdominal: NL Sounds; No Tenderness; No Distention Neurological: - - Oriented to self Lines/Tubes/Other Access: Clean, Dry and Intact Peripheral IV Result Diagrams: 11/04/18 04:23 11/04/18 04:23 Assess/Plan/Problems-Billing Assessment: Mr. Cramer is an 78 yo M with PMH of CVA, CAD, HTN, and MDS; who presented to the ED with report of AMS, vomiting and fever and was found to have pneumonia, possibly aspiration. - Patient Problems (1) Multilobar lung infiltrate Code(s): R91.8 - OTHER NONSPECIFIC ABNORMAL FINDING OF LUNG FIELD Comment: - Likely secondary to aspiration/vomitus prior to arrival with questioable coffee ground emesis - Sputum culture growing Staph aureus - Swallow eval Tuesday - Continue Zosyn (2) Acute respiratory failure Code(s): J96.00 - ACUTE RESPIRATORY FAILURE, UNSP W HYPOXIA OR HYPERCAPNIA Comment: - Secondary to pneumonia - Previously requiring Vapotherm, now down to 3L NC - Pulmonary toileting - Continue nebs (3) Dysphagia Code(s): R13.10 - DYSPHAGIA, UNSPECIFIED Comment: - Had an episode of aspiration on 11/03/18 - NPO - Pending swallow eval - Will start gentle IV hydration, though will need to monitor closely for fluid overload (4) Sepsis Comment: - Resolved - Met criteria on admission with tachycardia and fever >103; source likely aspiration pneumonia - Blood cultures negative to date - Plan as above (5) H/O: CVA (cerebrovascular accident) Code(s): Z86.73 - PRSNL HX OF TIA (TIA), AND CEREB INFRC W/O RESID DEFICITS Comment: - Multiple prior infarcts, 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 - Start therapeutic Lovenox as he is at very high risk of CVA and there has not been any further evidence of hematemesis (6) Chronic systolic congestive heart failure Code(s): I50.22 - CHRONIC SYSTOLIC (CONGESTIVE) HEART FAILURE Comment: - CXR showing vascular congestion, though generally appears euvolemic - Last echo showed EF 40-45% - Hold meds while NPO (7) HTN (hypertension) Code(s): I10 - ESSENTIAL (PRIMARY) HYPERTENSION Comment: - Slightly hypertensive, SBP up to 150s - Hold meds while NPO (8) Coronary artery disease Code(s): I25.10 - ATHSCL HEART DISEASE OF [place] CORONARY ARTERY W/O ANG PCTRS Comment: - With history of CABG - Hold meds while NPO (9) GERD (gastroesophageal reflux disease) Code(s): K21.9 - GASTRO-ESOPHAGEAL REFLUX DISEASE WITHOUT ESOPHAGITIS Comment : - Continue pantoprazole (10) Myelodysplastic disease Code(s): C94.6 - MYELODYSPLASTIC DISEASE, NOT CLASSIFIED Comment: - Pancytopenia at baseline (11) DVT prophylaxis Comment: - Lovenox (12) DNR (do not resuscitate) Comment: Status and Disposition: Inpatient for acute respiratory failure. Transfer out of ICU today. Anticipate d /c back to [facility] when medically stable. Attending: Kaylene Smith
[2018-11-04] MEDS: D5W 1/2 NS 1000 ML BAG* 1,000 ML IV SCH (16:34)
[2018-11-04] MEDS: Enoxaparin(*) 100 MG/ML SYR SUBCUT SCH (16:34)
[2018-11-04] MEDS ORDERED: Warfarin TAB(*) 2.5 MG PO SCH (17:00)
[2018-11-05] MEDS: Albuterol/Ipratropium NEB.SOL* Albuterol 2.5 MG/Ipratropium 0.5 MG 3 ML INH SCH ×2 (01:26→07:40)
[2018-11-05] MEDS: ZOSYN 3.375 GM Q8H per EXTENDED INFUSION IVPB SCH ×6 (01:45→17:41)
[2018-11-05] MEDS: Enoxaparin(*) 100 MG/ML SYR SUBCUT SCH ×2 (03:47→15:01)
[2018-11-05 07:25] LABS: ABS Lymphocytes 0.6 10^3/ul (1.0-4.8); ABS Monocytes 0.3 10^3/ul (0-0.8); ABS Neutrophils 1.6 10^3/ul (1.5-7.7); Hematocrit 29 % (42-52); Hemoglobin 9.8 g/dL (14.0-18.0); Lymphocyte % 22.9 %; Mean Corpuscular HGB Conc 34 g/dL (31-36); Mean Corpuscular Hemoglobin 30 pg (27-31); Mean Corpuscular Volume 88 fL (80-94); Mean Platelet Volume 9.9 fL (7.4-10.4); Platelet Count 71 10^3/uL (150-450); Red Blood Count 3.28 10^6 /uL (4.18-5.48); Red Cell Distribution Width 17 % (10-15); White Blood Count 2.5 10^3/uL (3.5-10.8)
[2018-11-05 07:27] LABS: INR 2.34 (0.82-1.09)
[2018-11-05] MEDS ORDERED: Albuterol/Ipratropium NEB.SOL* Albuterol 2.5 MG/Ipratropium 0.5 MG 3 ML INH PRN (07:41)
[2018-11-05] MEDS: Pantoprazole IV* 40 MG IV SCH (08:21)
--- NOTE | 2018-11-05 15:52 | PN ---
Subjective Date of Service: 11/05/18 Interval History: Mr. Cramer feels okay this morning, but he is not able to offer me much more information without specific questioning. He quickly falls back asleep, but denies feeling tired. He denies SOB and cough, though is noted to have a frequent, productive cough. Denies CP. No concerns from nursing. Family History: Unchanged from Admission Social History: Unchanged from Admission Past Medical History: Unchanged from Admission Objective Active Medications: Acetaminophen (Tylenol Tab*) 650 mg PO Q6H PRN MILD PAIN or TEMP > 100.4 Acetaminophen (Tylenol Supp*) 650 mg SD Q4H PRN TEMPERATURE > 100.4 Albuterol/Ipratropium (Duoneb (Albuterol 2.5 Mg/Ipratropium 0.5 Mg)) 1 neb INH [id number] AWAKE PRN SOB/WHEEZING Enoxaparin Sodium (Lovenox(*)) 90 mg SUBCUT Q12H [facility] Piperacillin Sod/Tazobactam (Sod 3.375 gm/ Sodium Chloride) 100 mls @ 25 mls/ hr IVPB Q8H [facility] Dextrose/Sodium Chloride (D5w 1/2 Ns 1000 Ml Bag*) 1,000 mls @ 50 mls/hr IV PER RATE [facility] Ondansetron HCl (Zofran Inj*) 4 mg IV Q6H PRN NAUSEA Pantoprazole Sodium (Protonix Iv*) 40 mg IV DAILY [facility] Vital Signs - 8 hr 11/05/18 11/05/18 11/05/18 08:00 10:39 11:24 Temperature 97.8 F Pulse Rate 90 Respiratory 24 22 Rate Blood Pressure 122/71 (mmHg) O2 Sat by Pulse 94 97 Oximetry Oxygen Devices in Use Now: Nasal Cannula - 3L Appearance: Elderly male laying in bed, dyspneic, but in NAD Neck: NL Appearance and Movements; NL JVP, Trachea Midline Respiratory: Symmetrical Chest Expansion and Respiratory Effort, - - Rhonchi throughout, L>R, frequent wet cough Cardiovascular: NL Sounds; No Murmurs; No JVD Abdominal: NL Sounds; No Tenderness; No Distention Neurological: - - Drowsy, oriented to self Lines/Tubes/Other Access: Clean, Dry and Intact Peripheral IV Result Diagrams: 11/05/18 06:55 09/21/19 04:23 Assess/Plan/Problems-Billing Assessment: Mr. Cramer is an 78 yo M with PMH of CVA, CAD, HTN, and MDS; who presented to the ED with report of AMS, vomiting and fever and was found to have pneumonia, possibly aspiration. - Patient Problems (1) Multilobar lung infiltrate Code(s): R91.8 - OTHER NONSPECIFIC ABNORMAL FINDING OF LUNG FIELD Comment: - Likely secondary to aspiration/vomitus prior to arrival with questioable coffee ground emesis - Sputum culture growing Staph aureus - Swallow eval Tuesday - Continue Zosyn (2) Acute respiratory failure Code(s): J96.00 - ACUTE RESPIRATORY FAILURE, UNSP W HYPOXIA OR HYPERCAPNIA Comment: - Secondary to pneumonia - Previously requiring Vapotherm, now down to 3L NC - Pulmonary toileting - Continue nebs (3) Dysphagia Code(s): R13.10 - DYSPHAGIA, UNSPECIFIED Comment: - Had an episode of aspiration on 11/03/18 - NPO - Pending swallow eval - Continue gentle IV hydration, though will need to monitor closely for fluid overload (4) Sepsis Comment: - Resolved - Met criteria on admission with tachycardia and fever >103; source likely aspiration pneumonia - Blood cultures negative to date - Plan as above (5) H/O: CVA (cerebrovascular accident) Code(s): Z86.73 - PRSNL HX OF TIA (TIA), AND CEREB INFRC W/O RESID DEFICITS Comment: - Multiple prior infarcts, 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 - Hold Coumadin; INR is still therapeutic at this point, so will d/c Lovenox as well (6) Chronic systolic congestive heart failure Code(s): I50.22 - CHRONIC SYSTOLIC (CONGESTIVE) HEART FAILURE Comment: - CXR showing vascular congestion, though generally appears euvolemic - Last echo showed EF 40-45% - Hold meds while NPO (7) HTN (hypertension) Code(s): I10 - ESSENTIAL (PRIMARY) HYPERTENSION Comment: - Normotensive, SBP 120-130s - Hold meds while NPO (8) Coronary artery disease Code(s): I25.10 - ATHSCL HEART DISEASE OF [place] CORONARY ARTERY W/O ANG PCTRS Comment: - With history of CABG - Hold meds while NPO (9) GERD (gastroesophageal reflux disease) Code(s): K21.9 - GASTRO-ESOPHAGEAL REFLUX DISEASE WITHOUT ESOPHAGITIS Comment : - Continue pantoprazole (10) Myelodysplastic disease Code(s): C94.6 - MYELODYSPLASTIC DISEASE, NOT CLASSIFIED Comment: - Pancytopenia at baseline (11) DVT prophylaxis Comment: - SCDs only, though INR remains therapeutic (12) DNR (do not resuscitate) Comment: Status and Disposition: Inpatient for acute respiratory failure and dysphagia. Anticipate d/c back to [facility] when medically stable. Attending: Natalia Friend
[2018-11-05] MEDS ORDERED: Warfarin TAB(*) 5 MG PO SCH (17:00)
[2018-11-05] MEDS: D5W 1/2 NS 1000 ML BAG* 1,000 ML IV SCH (22:16)
[2018-11-05] MEDS: Latanoprost 0.005%* 2.5 ml BTL BOTH EYES SCH (22:16)
[2018-11-06] MEDS: ZOSYN 3.375 GM Q8H per EXTENDED INFUSION IVPB SCH ×4 (02:48→11:13)
[2018-11-06 06:08] LABS: Hematocrit 29 % (42-52); Hemoglobin 9.7 g/dL (14.0-18.0); Mean Corpuscular HGB Conc 34 g/dL (31-36); Mean Corpuscular Hemoglobin 29 pg (27-31); Mean Corpuscular Volume 88 fL (80-94); Mean Platelet Volume 9.9 fL (7.4-10.4); Platelet Count 77 10^3/uL (150-450); Red Blood Count 3.29 10^6 /uL (4.18-5.48); Red Cell Distribution Width 17 % (10-15); White Blood Count 2.3 10^3/uL (3.5-10.8)
[2018-11-06 06:09] LABS: INR 2.04 (0.82-1.09)
[2018-11-06 06:26] LABS: ABS Lymphocytes 0.6 10^3/ul (1.0-4.8); ABS Monocytes 0.3 10^3/ul (0-0.8); ABS Neutrophils 1.5 10^3/ul (1.5-7.7); Eosinophil % 0.1 %; Lymphocyte % 24.7 %
[2018-11-06 06:31] LABS: Polychromasia 1+
[2018-11-06] MEDS: Pantoprazole IV* 40 MG IV SCH (11:31)
[2018-11-06] MEDS: DOXYcycline IV* 100 MG in NS 0.9% 250 ML* 250 ML IVPB SCH (11:32)
--- NOTE | 2018-11-06 16:21 | PN ---
Subjective Date of Service: 11/06/18 Interval History: Mr. Cramer is feeling fine today. He offers no complaints, but is minimally verbal. Denies pain. Denies SOB or cough, but is noted to be coughing during our conversation. Spoke with later in the day. She would like anticoagulation restarted JOHN d/t concern for CVA. No concerns from nursing. Family History: Unchanged from Admission Social History: Unchanged from Admission Past Medical History: Unchanged from Admission Objective Active Medications: Acetaminophen (Tylenol Supp*) 650 mg [place] Q4H PRN TEMPERATURE > 100.4 Albuterol/Ipratropium (Duoneb (Albuterol 2.5 Mg/Ipratropium 0.5 Mg)) 1 neb INH [id number] AWAKE PRN SOB/WHEEZING Dextrose/Sodium Chloride (D5w 1/2 Ns 1000 Ml Bag*) 1,000 mls @ 50 mls/hr IV PER RATE [facility] Doxycycline Hyclate 100 mg/ (Sodium Chloride) 250 mls @ 250 mls/hr IVPB Q12H [facility] Latanoprost (Xalatan 0.005%*) 1 drop BOTH EYES BEDTIME [facility]; Protocol Ondansetron HCl (Zofran Inj*) 4 mg IV Q6H PRN NAUSEA Pantoprazole Sodium (Protonix Iv*) 40 mg IV DAILY [facility] Vital Signs - 8 hr 11/06/18 11:28 Temperature 97.9 F Pulse Rate 85 Respiratory 24 Rate Blood Pressure 123/55 (mmHg) O2 Sat by Pulse 98 Oximetry Oxygen Devices in Use Now: Nasal Cannula - 3L Appearance: Elderly male sitting in bed in NAD, but slightly dyspneic Neck: NL Appearance and Movements; NL JVP, Trachea Midline Respiratory: Symmetrical Chest Expansion and Respiratory Effort, - - Rhonchi throughout Cardiovascular: NL Sounds; No Murmurs; No JVD Abdominal: NL Sounds; No Tenderness; No Distention Extremities: No Edema Neurological: - - [place], oriented to self Lines/Tubes/Other Access: Clean, Dry and Intact Peripheral IV Result Diagrams: 11/06/18 05:32 11/04/18 04:23 Assess/Plan/Problems-Billing Assessment: Mr. Cramer is an 78 yo M with PMH of CVA, CAD, HTN, and MDS; who presented to the ED with report of AMS, vomiting and fever and was found to have pneumonia, possibly aspiration. - Patient Problems (1) Multilobar lung infiltrate Code(s): R91.8 - OTHER NONSPECIFIC ABNORMAL FINDING OF LUNG FIELD Comment: - Likely secondary to aspiration/vomitus prior to arrival with questioable coffee ground emesis - Sputum culture now growing MRSA as of today - Swallow eval today - Change to doxy (2) Acute respiratory failure Code(s): J96.00 - ACUTE RESPIRATORY FAILURE, UNSP W HYPOXIA OR HYPERCAPNIA Comment: - Secondary to pneumonia - Previously requiring Vapotherm, now down to 3L NC - Pulmonary toileting - Continue nebs (3) Dysphagia Code(s): R13.10 - DYSPHAGIA, UNSPECIFIED Comment: - Had an episode of aspiration on 11/03/18 - NPO pending swallow eval - Continue gentle IV hydration, though will need to monitor closely for fluid overload (4) Sepsis Comment: - Resolved - Met criteria on admission with tachycardia and fever >103; source likely aspiration pneumonia - Blood cultures negative - Plan as above (5) H/O: CVA (cerebrovascular accident) Code(s): Z86.73 - PRSNL HX OF TIA (TIA), AND CEREB INFRC W/O RESID DEFICITS Comment: - Multiple prior infarcts, 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 - HAS-BLED score is 4 indicating an 8.9% risk of bleeds per 100 patient years; CHADS-VASC2 score is 6 indicating a 9.7% risk of stroke per year - INR remains therapeutic though patient has been off Coumadin (likely r/t being NPO and abx), so will continue to hold off on resuming Coumadin or Lovenox for now; if INR does drop, will start Lovenox as discussed with patient' s (6) Chronic systolic congestive heart failure Code(s): I50.22 - CHRONIC SYSTOLIC (CONGESTIVE) HEART FAILURE Comment: - CXR showing vascular congestion, though generally appears euvolemic - Last echo showed EF 40-45% - Hold meds while NPO (7) HTN (hypertension) Code(s): I10 - ESSENTIAL (PRIMARY) HYPERTENSION Comment: - Normotensive, SBP 130s - Hold meds while NPO (8) Coronary artery disease Code(s): I25.10 - ATHSCL HEART DISEASE OF [place] CORONARY ARTERY W/O ANG PCTRS Comment: - With history of CABG - Hold meds while NPO (9) GERD (gastroesophageal reflux disease) Code(s): K21.9 - GASTRO-ESOPHAGEAL REFLUX DISEASE WITHOUT ESOPHAGITIS Comment : - Continue pantoprazole (10) Myelodysplastic disease Code(s): C94.6 - MYELODYSPLASTIC DISEASE, NOT CLASSIFIED Comment: - Pancytopenia at baseline (11) DVT prophylaxis Comment: - SCDs only, though INR remains therapeutic (12) DNR (do not resuscitate) Comment: Status and Disposition: Inpatient for acute respiratory failure and dysphagia. Anticipate d/c back to [facility] when medically stable. Attending: Gualberto Fuller
[2018-11-06] MEDS: Albuterol/Ipratropium NEB.SOL* Albuterol 2.5 MG/Ipratropium 0.5 MG 3 ML INH SCH ×2 (19:02→23:54)
[2018-11-06] MEDS: D5W 1/2 NS 1000 ML BAG* 1,000 ML IV SCH (20:04)
[2018-11-06] MEDS: Latanoprost 0.005%* 2.5 ml BTL BOTH EYES SCH (21:59)
[2018-11-07] MEDS: DOXYcycline IV* 100 MG in NS 0.9% 250 ML* 250 ML IVPB SCH ×2 (00:35→12:08)
[2018-11-07] MEDS: Albuterol/Ipratropium NEB.SOL* Albuterol 2.5 MG/Ipratropium 0.5 MG 3 ML INH SCH ×6 (03:22→23:16)
[2018-11-07 08:12] LABS: INR 1.73 (0.82-1.09)
[2018-11-07 08:15] LABS: BUN/Creatinine Ratio 19.7 (8-20); Blood Urea Nitrogen 14 mg/dL (6-24); CO2 Carbon Dioxide 26 mmol/L (22-32); Calcium 8.9 mg/dL (8.6-10.3); Chloride 102 mmol/L (101-111); EGFR African American 129.2 (>60); EGFR Non-African American 106.7 (>60); Glucose 101 mg/dL (70-100); Sodium 137 mmol/L (135-145)
[2018-11-07] MEDS: Pantoprazole IV* 40 MG IV SCH (08:38)
[2018-11-07 08:51] LABS: Anion Gap 9 mmol/L (2-11)
[2018-11-07 11:39] LABS: Hematocrit 28 % (42-52); Hemoglobin 9.2 g/dL (14.0-18.0); Mean Corpuscular HGB Conc 33 g/dL (31-36); Mean Corpuscular Hemoglobin 29 pg (27-31); Mean Corpuscular Volume 88 fL (80-94); Mean Platelet Volume 9.8 fL (7.4-10.4); Platelet Count 80 10^3/uL (150-450); Red Blood Count 3.14 10^6 /uL (4.18-5.48); Red Cell Distribution Width 17 % (10-15); White Blood Count 2.4 10^3/uL (3.5-10.8)
--- NOTE | 2018-11-07 11:42 | PN ---
Subjective Date of Service: 11/07/18 Interval History: Mr. Cramer is much more alert today and able to participate in conversation, however, voice quality is poor d/t secretions. He reports feeling well. He is able to tell me where he is. He reports coughing "a little" but not coughing anything up. Denies CP, SOB. No concerns from nursing. Family History: Unchanged from Admission Social History: Unchanged from Admission Past Medical History: Unchanged from Admission Objective Active Medications: Acetaminophen (Tylenol Supp*) 650 mg [place] Q4H PRN TEMPERATURE > 100.4 Albuterol/Ipratropium (Duoneb (Albuterol 2.5 Mg/Ipratropium 0.5 Mg)) 1 neb INH [id number] AWAKE [facility] Enoxaparin Sodium (Lovenox(*)) 90 mg SUBCUT Q12H [facility] Dextrose/Sodium Chloride (D5w 1/2 Ns 1000 Ml Bag*) 1,000 mls @ 50 mls/hr IV PER RATE [facility] Doxycycline Hyclate 100 mg/ (Sodium Chloride) 250 mls @ 250 mls/hr IVPB Q12H [facility] Dextrose 1,000 ml/ Amino Acids 850 ml/ Sterile Water 150 ml/Fat Emulsion Intravenous 500 ml/ Sodium Chloride 100 meq/Potassium Chloride 50 meq/Potassium Phosphate 15 mmole/Calcium Gluconate 15 meq/Magnesium Sulfate 10 meq/ Multivitamins 10 ml/ Trace Metals 1 ml/ Nutrition ( Parenteral) 2,600.721 mls @ 108.422 mls/hr IV 1700 [facility]; Protocol Latanoprost (Xalatan 0.005%*) 1 drop BOTH EYES BEDTIME [facility]OOK; Protocol Ondansetron HCl (Zofran Inj*) 4 mg IV Q6H PRN NAUSEA Pantoprazole Sodium (Protonix Iv*) 40 mg IV DAILY [facility] Vital Signs - 8 hr 11/07/18 11/07/18 11/07/18 04:23 08:23 08:52 Temperature 98.8 F 98.6 F Pulse Rate 87 84 Respiratory 20 20 20 Rate Blood Pressure 138/64 128/54 (mmHg) O2 Sat by Pulse 100 95 92 Oximetry Oxygen Devices in Use Now: Nasal Cannula - 4L Appearance: Elderly male laying in bed in NAD Ears/Nose/Mouth/Throat: - - Audible secretions Neck: NL Appearance and Movements; NL JVP, Trachea Midline Respiratory: Symmetrical Chest Expansion and Respiratory Effort, - - Rhonchi throughout, improved from prior day Cardiovascular: NL Sounds; No Murmurs; No JVD Abdominal: - - Hypoactive BS, SNT Extremities: No Edema Neurological: - - Oriented to self and place Lines/Tubes/Other Access: Clean, Dry and Intact Peripheral IV Result Diagrams: 11/06/18 05:32 11/07/18 07:10 Assess/Plan/Problems-Billing Assessment: Mr. Cramer is an 78 yo M with PMH of CVA, CAD, HTN, and MDS; who presented to the ED with report of AMS, vomiting and fever and was found to have pneumonia, possibly aspiration. - Patient Problems (1) Multilobar lung infiltrate Code(s): R91.8 - OTHER NONSPECIFIC ABNORMAL FINDING OF LUNG FIELD Comment: - Appears overall improved from yesterday - Likely secondary to aspiration/vomitus prior to arrival with questioable coffee ground emesis - Sputum culture now growing MRSA - Continue doxy (2) Acute respiratory failure Code(s): J96.00 - ACUTE RESPIRATORY FAILURE, UNSP W HYPOXIA OR HYPERCAPNIA Comment: - Secondary to pneumonia - Previously requiring Vapotherm, now on 4L NC - Pulmonary toileting - Continue nebs (3) Dysphagia Code(s): R13.10 - DYSPHAGIA, UNSPECIFIED Comment: - Had an episode of aspiration on 11/03/18 - Failed swallow eval yesterday; long discussion with and she would like to pursue IV nutrition and do another swallow eval when infection and respiratory status are improved; she understands that this is a very short-term option but it is not clear whether or not she would want to pursue a feeding tube - Start PPN (day 1) (4) Sepsis Comment: - Resolved - Met criteria on admission with tachycardia and fever >103; source likely aspiration pneumonia - Blood cultures negative - Plan as above (5) H/O: CVA (cerebrovascular accident) Code(s): Z86.73 - PRSNL HX OF TIA (TIA), AND CEREB INFRC W/O RESID DEFICITS Comment: - Multiple prior infarcts, 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 - HAS-BLED score is 4 indicating an 8.9% risk of bleeds per 100 patient years; CHADS-VASC2 score is 6 indicating a 9.7% risk of stroke per year - INR dropped today - Start therapeutic Lovenox and will need to bridge back to Coumadin when and if able to tolerated PO intake (6) Chronic systolic congestive heart failure Code(s): I50.22 - CHRONIC SYSTOLIC (CONGESTIVE) HEART FAILURE Comment: - CXR showing vascular congestion, though generally appears euvolemic - Last echo showed EF 40-45% - Hold meds while NPO (7) HTN (hypertension) Code(s): I10 - ESSENTIAL (PRIMARY) HYPERTENSION Comment: - Normotensive, SBP 120-130s - Hold meds while NPO (8) Coronary artery disease Code(s): I25.10 - ATHSCL HEART DISEASE OF [place] CORONARY ARTERY W/O ANG PCTRS Comment: - With history of CABG - Hold meds while NPO (9) GERD (gastroesophageal reflux disease) Code(s): K21.9 - GASTRO-ESOPHAGEAL REFLUX DISEASE WITHOUT ESOPHAGITIS Comment : - Continue pantoprazole (10) Myelodysplastic disease Code(s): C94.6 - MYELODYSPLASTIC DISEASE, NOT CLASSIFIED Comment: - Pancytopenia at baseline (11) DVT prophylaxis Comment: - Lovenox (12) DNR (do not resuscitate) Comment: Status and Disposition: Inpatient for acute respiratory failure and dysphagia. Anticipate d/c back to [facility] when medically stable. Attending: Karis Hernandez
[2018-11-07] MEDS: Enoxaparin(*) 100 MG/ML SYR SUBCUT SCH (12:08)
[2018-11-07 12:27] LABS: ABS Lymphocytes 0.7 10^3/ul (1.0-4.8); ABS Monocytes 0.2 10^3/ul (0-0.8); ABS Neutrophils 1.4 10^3/ul (1.5-7.7); Eosinophil % 0.1 %; Lymphocyte % 30.5 %; Nucleated Red Blood Cells % 0.2
[2018-11-07] MEDS: TPN Peripheral STANDARD BASE A IV SCH ×12 (16:57)
[2018-11-07] MEDS: Latanoprost 0.005%* 2.5 ml BTL BOTH EYES SCH (21:40)
[2018-11-08] MEDS: DOXYcycline IV* 100 MG in NS 0.9% 250 ML* 250 ML IVPB SCH ×2 (00:31→11:56)
[2018-11-08] MEDS: Enoxaparin(*) 100 MG/ML SYR SUBCUT SCH ×2 (01:15→11:58)
[2018-11-08] MEDS: Albuterol/Ipratropium NEB.SOL* Albuterol 2.5 MG/Ipratropium 0.5 MG 3 ML INH SCH ×6 (03:54→23:01)
[2018-11-08] MEDS: Pantoprazole IV* 40 MG IV SCH (07:50)
[2018-11-08 09:34] LABS: Hematocrit 27 % (42-52); Hemoglobin 9.2 g/dL (14.0-18.0); Mean Corpuscular HGB Conc 34 g/dL (31-36); Mean Corpuscular Hemoglobin 30 pg (27-31); Mean Corpuscular Volume 88 fL (80-94); Red Blood Count 3.08 10^6 /uL (4.18-5.48); Red Cell Distribution Width 17 % (10-15); White Blood Count 2.9 10^3/uL (3.5-10.8)
[2018-11-08 09:40] LABS: INR 1.45 (0.82-1.09)
[2018-11-08 09:44] LABS: BUN/Creatinine Ratio 24.6 (8-20); Calcium 8.6 mg/dL (8.6-10.3); EGFR African American 153.9 (>60); EGFR Non-African American 127.2 (>60); Potassium 3.4 mmol/L (3.5-5.0)
[2018-11-08 09:55] LABS: ABS Lymphocytes 0.8 10^3/ul (1.0-4.8); ABS Monocytes 0.3 10^3/ul (0-0.8); ABS Neutrophils 1.8 10^3/ul (1.5-7.7); Eosinophil % 0.1 %; Lymphocyte % 26.7 %; Mean Platelet Volume 10.1 fL (7.4-10.4); Nucleated Red Blood Cells % 0.1; Platelet Count 85 10^3/uL (150-450)
[2018-11-08 09:59] LABS: Platelet Morphology Large
[2018-11-08] MEDS: TPN Peripheral STANDARD BASE A IV SCH ×12 (17:20)
--- NOTE | 2018-11-08 17:31 | PN ---
Subjective Date of Service: 11/08/18 Interval History: Patient seen and examined, remains confused but answering questions. Failed swallow again today. No further events noted overnight. Chart reviewed in detail. Family History: Unchanged from Admission Social History: Unchanged from Admission Past Medical History: Unchanged from Admission Objective Active Medications: Acetaminophen (Tylenol Supp*) 650 mg [place] Q4H PRN PRN Reason: TEMPERATURE > 100.4 Last Admin: 11/01/18 22:08 Dose: 650 mg Albuterol/Ipratropium (Duoneb (Albuterol 2.5 Mg/Ipratropium 0.5 Mg)) 1 neb INH [id number] AWAKE [facility] Last Admin: 11/08/18 14:42 Dose: 1 neb Enoxaparin Sodium (Lovenox(*)) 90 mg SUBCUT Q12H [facility] Last Admin: 11/08/18 11:58 Dose: 90 mg Doxycycline Hyclate 100 mg/ (Sodium Chloride) 250 mls @ 250 mls/hr IVPB Q12H [facility] Last Admin: 11/08/18 11:56 Dose: 250 mls/hr Dextrose 1,000 ml/ Amino Acids 850 ml/ Sterile Water 150 ml/Fat Emulsion Intravenous 500 ml/ Sodium Chloride 100 meq/Potassium Chloride 50 meq/Potassium Phosphate 15 mmole/Calcium Gluconate 15 meq/Magnesium Sulfate 10 meq/ Multivitamins 10 ml/ Trace Metals 1 ml/ Nutrition ( Parenteral) 2,600.721 mls @ 108.422 mls/hr IV 1700 [facility]; Protocol Last Admin: 11/07/18 16:57 Dose: 108.422 mls/hr Latanoprost (Xalatan 0.005%*) 1 drop BOTH EYES BEDTIME [facility]; Protocol Last Admin: 11/07/18 21:40 Dose: 1 drop Ondansetron HCl (Zofran Inj*) 4 mg IV Q6H PRN PRN Reason: NAUSEA Pantoprazole Sodium (Protonix Iv*) 40 mg IV DAILY [facility] Last Admin: 11/08/18 07:50 Dose: 40 mg Vital Signs - 8 hr 11/08/18 11/08/18 11/08/18 11:21 13:07 13:31 Temperature 97.6 F Pulse Rate 91 81 Respiratory 18 20 14 Rate Blood Pressure 130/61 (mmHg) O2 Sat by Pulse 93 98 Oximetry 11/08/18 11/08/18 14:55 15:43 Temperature 98.2 F Pulse Rate 80 73 Respiratory 18 18 Rate Blood Pressure 127/54 (mmHg) O2 Sat by Pulse 93 100 Oximetry Oxygen Devices in Use Now: Nasal Cannula Appearance: alert, ill-appearing Eyes: PERRLA Ears/Nose/Mouth/Throat: Mucous Membranes Moist Neck: NL Appearance and Movements; NL JVP Respiratory: - - course, loose rhonchi throughout lung reddy Abdominal: NL Sounds; No Tenderness; No Distention Extremities: No Clubbing, Cyanosis, - - bialteral LE edema Skin: No Rash or Ulcers Neurological: - - confused with left side deficit at baseline Nutrition: - - NPO, on PPN Result Diagrams: 11/08/18 09:16 11/08/18 09:16 Microbiology and Other Data: Microbiology 11/01/18 14:30 Aerobic Blood Culture - Preliminary Blood Venous No Growth Day 1 Anaerobic Blood Culture - Preliminary No Growth Day 1 11/01/18 14:20 Aerobic Blood Culture - Preliminary Blood Venous No Growth Day 1 Anaerobic Blood Culture - Preliminary No Growth Day 1 11/02/18 05:26 Legionella Urinary Antigen - Final Urine Negative Legionella Antigen Streptococcus pneumoniae Ag Screen - Final Negative S. 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 Prior CT scan of the chest dated 06/19/2017 showed no change in the diameter the mid ascending aorta from today's study. Initial report created on 11/01/2018 9:52:39 PM EDT PROCEDURE INFORMATION: Exam: CT Chest With Contrast Exam date and time: 11/01/2018 8:42 PM Clinical history: 78 years old, male; Abdominal pain; Generalized; Other: Unknown; Additional info: Sepsis unknown origin ? pna vs intraabdominal path TECHNIQUE: Imaging protocol: Computed tomography of the chest with intravenous contrast. Radiation optimization: All CT scans at this facility use at least one of these dose optimization techniques: automated exposure control; mA and/or kV adjustment per patient size (includes targeted exams where dose is matched to clinical indication); or iterative reconstruction. Contrast material: OMNI 300; Contrast volume: 120 ml; Contrast route: IV; COMPARISON: C/A/P WO CT CHEST/ABD/PEL W/O 06/19/2017 2:04 PM FINDINGS: Limitations: Motion artifacts. Lungs: Consolidation of both lower lungs. The left lung being more involved than the right. Small lingular and right middle lung infiltrate. Pleural space: Small bilateral pleural effusions. No pneumothorax. Heart: Patient status post open heart surgery. Cardiac size is mildly enlarged. Severe coronary calcification. Mediastinum: No mediastinal mass. Small hiatal hernia. Aorta: Atheromatous changes involving the thoracic aorta. Ectasia of the ascending aorta. AP length of the mid ascending aorta is 4.2 cm. The AP length of the descending thoracic aorta at the level of the nohelia is 2.8 cm. Lymph nodes: No mediastinal adenopathy. Bones/joints: Degenerative changes of both shoulders. No overlapping rib fractures. Spondylotic changes of the thoracic spine. Soft tissues: Unremarkable. Stomach and bowel: Anterior confluent osteophyte formation from the cervical thoracic junction to the thoracolumbar junction. IMPRESSION: Bilateral lower lobe consolidation and small right middle lung and lingular infiltrates. The left lung being more involved than the right. This could represent a multilobar pneumonia. Small associated pleural effusions. Left greater than right. [facility] Patient Name:REYNALDO FREEMAN MR:[id number] : 1940 PROCEDURE INFORMATION: Exam: CT Abdomen and Pelvis With Contrast Exam date and time: 11/01/2018 8:42 PM Clinical history: 78 years old, male; Abdominal pain; Generalized; Other: Unknown; Additional info: Sepsis unknown origin ? pna vs intraabdominal path TECHNIQUE: Imaging protocol: Computed tomography of the abdomen and pelvis with intravenous contrast. Radiation optimization: All CT scans at this facility use at least one of these dose optimization techniques: automated exposure control; mA and/or kV adjustment per patient size (includes targeted exams where dose is matched to clinical indication); or iterative reconstruction. Contrast material: OMNI 300; Contrast volume: 120 ml; Contrast route: IV; COMPARISON: C/A/P WO CT CHEST/ABD/PEL W/O 06/19/2017 2:04 PM FINDINGS: Liver: Normal. No mass. Gallbladder and bile ducts: Calcified stone located in the neck of the gallbladder. This was seen on prior CT scan dated 06/19/2017 and is unchanged in position. Pancreas: Normal. No ductal dilation. Spleen: Small punctate splenic calcification. The spleen is of normal size. Adrenals: Normal. No mass. Kidneys and ureters: Left renal cortical cyst measuring 3.9 cm in length. This has a density of 22 Hounsfield units. No hydronephrosis or nephrolithiasis. Stomach and bowel: No bowel obstruction. Diverticular changes involving the colon. No evidence of acute diverticulitis. Appendix: No evidence of appendicitis. Intraperitoneal space: Unremarkable. No free air. No significant fluid collection. Vasculature: Calcification of the wall of the abdominal aorta and iliac arteries. No aneurysm. Lymph nodes: Unremarkable. No enlarged lymph nodes. Bladder: Unremarkable as visualized. Reproductive: Unremarkable as visualized. Bones/joints: Spondylotic changes lumbar spine. Laminectomy from L3 to L5. No evidence of fracture or malalignment. Several threaded screws coursing through the left hip. Soft tissues: Unremarkable. Other findings: Limitation: Artifact created by the right arm. IMPRESSION: 1. No acute findings. 2. Cholelithiasis. Assess/Plan/Problems-Billing Assessment: Mr. Freeman is an 78 yo M with PMH of CVA, CAD, HTN, and MDS; who presented to the ED with report of AMS, vomiting and fever and was found to have pneumonia, possibly aspiration. - Patient Problems (1) Dysphagia Code(s): R13.10 - DYSPHAGIA, UNSPECIFIED SNOMED Code(s): 02358704 Comment: - Had an episode of aspiration on 11/03/18, suspect aspiration is the etiology for this admission overall - Failed swallow eval x2, discussed with [employer] - PPN initiated as short term solution - Will discuss with again after barium swallow, as the MOLST was updated this admission to reflect no PEG tube, will have to be revisited (2) Acute respiratory failure Code(s): J96.00 - ACUTE RESPIRATORY FAILURE, UNSP W HYPOXIA OR HYPERCAPNIA SNOMED Code(s): 43081182 Comment: - Secondary to pneumonia/aspiration - Previously requiring Vapotherm, now on 4L NC - Pulmonary toileting - Continue nebs (3) Sepsis Comment: - Resolved - Met criteria on admission with tachycardia and fever >103; source likely aspiration pneumonia - Blood cultures negative (4) Multilobar lung infiltrate Code(s): R91.8 - OTHER NONSPECIFIC ABNORMAL FINDING OF LUNG FIELD SNOMED Code( s): 2920846237656 Comment: - Appears overall improved from yesterday - Likely secondary to aspiration/vomitus prior to arrival with questioable coffee ground emesis - Sputum culture now growing MRSA - Continue doxy (5) Coronary artery disease Code(s): I25.10 - ATHSCL HEART DISEASE OF [place] CORONARY ARTERY W/O ANG PCTRS SNOMED Code(s): 62658497 Comment: - With history of CABG - Hold meds while NPO (6) GERD (gastroesophageal reflux disease) Code(s): K21.9 - GASTRO-ESOPHAGEAL REFLUX DISEASE WITHOUT ESOPHAGITIS SNOMED Code(s): 527397766 Comment: - Continue pantoprazole (7) H/O: CVA (cerebrovascular accident) Code(s): Z86.73 - PRSNL HX OF TIA (TIA), AND CEREB INFRC W/O RESID DEFICITS SNOMED Code(s): 514290781 Comment: - Multiple prior infarcts, 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 - HAS-BLED score is 4 indicating an 8.9% risk of bleeds per 100 patient years; CHADS-VASC2 score is 6 indicating a 9.7% risk of stroke per year - INR dropped therapeutic Lovenox initiated on 11/07, as coumadin was held in light of low H&H and potential bleeding - Possibility of bridging back to Coumadin if able to tolerate PO intake (8) Hypertension Code(s): I10 - ESSENTIAL (PRIMARY) HYPERTENSION SNOMED Code(s): 68295009 Comment: - BP stable, restart PO meds after swallow eval (9) Myelodysplastic disease Code(s): C94.6 - MYELODYSPLASTIC DISEASE, NOT CLASSIFIED SNOMED Code(s): 730969948 Comment: - Pancytopenia at baseline, monitor PLTS while on lovenox and hold if drop below 50 (10) DVT prophylaxis Code(s): EYS5476 - SNOMED Code(s): 874039876 Comment: - Lovenox (11) DNR (do not resuscitate) Comment: Status and Disposition: Inpatient for acute respiratory failure and dysphagia. Anticipate d/c back to [facility] when medically stable.
[2018-11-08] MEDS: Latanoprost 0.005%* 2.5 ml BTL BOTH EYES SCH (20:31)
[2018-11-09] MEDS: DOXYcycline IV* 100 MG in NS 0.9% 250 ML* 250 ML IVPB SCH ×2 (00:53→12:59)
[2018-11-09] MEDS: Enoxaparin(*) 100 MG/ML SYR SUBCUT SCH ×2 (00:55→10:43)
[2018-11-09] MEDS: Albuterol/Ipratropium NEB.SOL* Albuterol 2.5 MG/Ipratropium 0.5 MG 3 ML INH SCH ×5 (03:07→19:36)
[2018-11-09 06:06] LABS: INR 1.28 (0.82-1.09)
[2018-11-09 06:07] LABS: Hematocrit 27 % (42-52); Hemoglobin 8.8 g/dL (14.0-18.0); Mean Corpuscular HGB Conc 33 g/dL (31-36); Mean Corpuscular Hemoglobin 29 pg (27-31); Mean Corpuscular Volume 88 fL (80-94); Mean Platelet Volume 10.5 fL (7.4-10.4); Platelet Count 88 10^3/uL (150-450); Red Blood Count 3.02 10^6 /uL (4.18-5.48); Red Cell Distribution Width 17 % (10-15); White Blood Count 2.7 10^3/uL (3.5-10.8)
[2018-11-09 06:24] LABS: Calcium 8.6 mg/dL (8.6-10.3); EGFR African American 153.9 (>60); EGFR Non-African American 127.2 (>60); Potassium 3.3 mmol/L (3.5-5.0)
[2018-11-09 06:57] LABS: ABS Lymphocytes 0.8 10^3/ul (1.0-4.8); ABS Monocytes 0.3 10^3/ul (0-0.8); ABS Neutrophils 1.5 10^3/ul (1.5-7.7); Eosinophil % 0.1 %; Large Platelets Present; Lymphocyte % 30.2 %; Nucleated Red Blood Cells % 0.1
[2018-11-09] MEDS ORDERED: KCL 10 MEQ/50 ML IVPREMIX* 10 MEQ/50 ML BAG IV ONE (08:41)
[2018-11-09] MEDS: Pantoprazole IV* 40 MG IV SCH (08:47)
[2018-11-09 09:01] LABS: Magnesium 1.7 mg/dL (1.9-2.7)
[2018-11-09] MEDS ORDERED: Magnesium Sulfate 2 GM IV* 2 GM/50 ML BAG IVPB ONE (09:53)
--- NOTE | 2018-11-09 15:34 | CONSULT ---
Palliative / Hospice Consult Ordering Provider: Mattie Drew - PCP-Viki Referal Reason: goals of care/no bowel meds/no narcotics - Subjective Code Status: DNR Advance Directives Location: In Chart MOLST Part A Completed: Yes - on chart MOLST Part E Completed:: Yes - on chart - History or Present Illness History or Present Illness: 78yo male resident of [facility] with multiple CVA's presents to ER with altered mental status. 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 Studies-CXR#1 neg, brain Ct-old infarcts & atrophy, abd xray-air fluid levels no dilatation, ekg-sinus or atrail tachycardia & LBBB, abd CT-cholelithiasis, EEG- mild nonspecific encephalopathy,CXR #2 worsening interstitial edema consistent with vascular congestion, CT/CAT-bilat lower lobe consolidation and small RML and lingula infiltrate, pt has failed 2 swallow evaluations, H/H 9.2/ 29, plt 85, BUN/Cr 15/.6, egfr 127.2, CRP 195 and alb 3.4. Pt last admitted 07/16- for L sided weakness and ER visit for headache. Pt was admitted to ICU with sepsis secondary to suspected aspiration pneumonia, acute respiratory failure and dysphagia. All history is from and medical record, pt unable to contribute. Lab Values: Abnormal Lab Results 11/08/18 11/09/18 11/09/18 17:58 00:49 05:11 WBC RBC Hgb Hct MCV MCH MCHC RDW Plt Count MPV Neut % (Auto) Lymph % (Auto) Swisher % (Auto) Eos % (Auto) Baso % (Auto) Absolute Neuts (auto) Absolute Lymphs (auto) Absolute Monos (auto) Absolute Eos (auto) Absolute Basos (auto) Absolute Nucleated RBC Immature Gran % Neutrophils % Lymphocytes % Monocytes % Metamyelocytes % Nucleated RBC % Large Platelets Normal RBC Morphology INR (Anticoag Therapy) 1.28 H Sodium Potassium Chloride Carbon Dioxide Anion Gap BUN Creatinine Est GFR ( Amer) Est GFR (Non-Af Amer) BUN/Creatinine Ratio Glucose POC Glucose (mg/dL) 118 H 129 H Calcium Magnesium 11/09/18 11/09/18 11/09/18 05:11 05:11 05:15 WBC 2.7 L RBC 3.02 L Hgb 8.8 L Hct 27 L MCV 88 MCH 29 MCHC 33 RDW 17 H Plt Count 88 L MPV 10.5 H Neut % (Auto) 57.1 Lymph % (Auto) 30.2 Swisher % (Auto) 12.1 Eos % (Auto) 0.1 Baso % (Auto) 0.5 Absolute Neuts (auto) 1.5 Absolute Lymphs (auto) 0.8 L Absolute Monos (auto) 0.3 Absolute Eos (auto) 0.0 Absolute Basos (auto) 0.0 Absolute Nucleated RBC 0.0 Immature Gran % 1.0 Neutrophils % 58.0 Lymphocytes % 35.0 Monocytes % 6.0 Metamyelocytes % 1.0 Nucleated RBC % 0.1 Large Platelets Present Normal RBC Morphology Normal INR (Anticoag Therapy) Sodium 137 Potassium 3.3 L Chloride 106 Carbon Dioxide 25 Anion Gap 6 BUN 14 Creatinine 0.61 L Est GFR ( Amer) 153.9 Est GFR (Non-Af Amer) 127.2 BUN/Creatinine Ratio 23.0 H Glucose 135 H POC Glucose (mg/dL) 157 H Calcium 8.6 Magnesium 1.7 L 11/09/18 12:56 WBC RBC Hgb Hct MCV MCH MCHC RDW Plt Count MPV Neut % (Auto) Lymph % (Auto) Swisher % (Auto) Eos % (Auto) Baso % (Auto) Absolute Neuts (auto) Absolute Lymphs (auto) Absolute Monos (auto) Absolute Eos (auto) Absolute Basos (auto) Absolute Nucleated RBC Immature Gran % Neutrophils % Lymphocytes % Monocytes % Metamyelocytes % Nucleated RBC % Large Platelets Normal RBC Morphology INR (Anticoag Therapy) Sodium Potassium Chloride Carbon Dioxide Anion Gap BUN Creatinine Est GFR ( Amer) Est GFR (Non-Af Amer) BUN/Creatinine Ratio Glucose POC Glucose (mg/dL) 127 H Calcium Magnesium Laboratory Last Values WBC 2.7 10^3/uL (3.5-10.8) L 11/09/18 05:11 RBC 3.02 10^6 /uL (4.18-5.48) L 11/09/18 05:11 Hgb 8.8 g/dL (14.0-18.0) L 11/09/18 05:11 Hct 27 % (42-52) L 11/09/18 05:11 MCV 88 fL (80-94) 11/09/18 05:11 MCH 29 pg (27-31) 11/09/18 05:11 MCHC 33 g/dL (31-36) 11/09/18 05:11 RDW 17 % (10-15) H 11/09/18 05:11 Plt Count 88 10^3/uL (150-450) L 11/09/18 05:11 MPV 10.5 fL (7.4-10.4) H 11/09/18 05:11 Neut % (Auto) 57.1 % 11/09/18 05:11 Lymph % (Auto) 30.2 % 11/09/18 05:11 Swisher % (Auto) 12.1 % 11/09/18 05:11 Eos % (Auto) 0.1 % 11/09/18 05:11 Baso % (Auto) 0.5 % 11/09/18 05:11 Absolute Neuts (auto) 1.5 10^3/ul (1.5-7.7) 11/09/18 05:11 Absolute Lymphs (auto) 0.8 10^3/ul (1.0-4.8) L 11/09/18 05:11 Absolute Monos (auto) 0.3 10^3/ul (0-0.8) 11/09/18 05:11 Absolute Eos (auto) 0.0 10^3/ul (0-0.6) 11/09/18 05:11 Absolute Basos (auto) 0.0 10^3/ul (0-0.2) 11/09/18 05:11 Absolute Nucleated RBC 0.0 10^3/ul 11/09/18 05:11 Immature Gran % 1.0 % (0-9) 11/09/18 05:11 Neutrophils % 58.0 % 11/09/18 05:11 Lymphocytes % 35.0 % 11/09/18 05:11 Reactive Lymphs % 1.0 % (0-6) 11/08/18 09:16 Monocytes % 6.0 % 11/09/18 05:11 Metamyelocytes % 1.0 % (0-2) 11/09/18 05:11 Nucleated RBC % 0.1 11/09/18 05:11 Platelet Morphology Large 11/08/18 09:16 Large Platelets Present 11/09/18 05:11 Normal RBC Morphology Normal (Normal) 11/09/18 05:11 Polychromasia 1+ 11/06/18 05:32 Anisocytosis 1+ 11/08/18 09:16 ESR 32 mm/Hr (0-19) H 11/01/18 14:20 Hem Pathologist Commnt 11/07/18 11:15 INR (Anticoag Therapy) 1.28 (0.82-1.09) H 11/09/18 05:11 APTT 42.4 seconds (26.0-38.0) H 11/01/18 14:20 Fibrinogen 410.0 mg/dL (110.8-404.3) H 11/01/18 14:20 Patient Temperature Not Reportable 11/02/18 10:09 ABG pH 7.42 (7.35-7.45) 11/02/18 10:09 ABG pH (Temp Correct) Not Reportable 11/02/18 10:09 ABG pCO2 38 mmHg (35-45) 11/02/18 10:09 ABG pCO2 (Temp Corrct Not Reportable 11/02/18 10:09 ABG pO2 76 mmHg (80-100) L 11/02/18 10:09 ABG pO2 (Temp Correct Not Reportable 11/02/18 10:09 ABG HCO3 25.1 mmol/L (19-31) 11/02/18 10:09 ABG O2 Saturation 98.7 % (94.0-98.0) H 11/02/18 10:09 ABG Base Excess 0.3 mmol/L (-2.0-2.0) 11/02/18 10:09 Respiration Rate Not Reportable 11/02/18 10:09 O2 Delivery Device 10lpm oxy mask 11/02/18 10:09 Ventilator Type Not Reportable 11/02/18 10:09 Vent Mode Not Reportable 11/02/18 10:09 FiO2 Not Reportable 11/02/18 10:09 Inspiratory Time Not Reportable 11/02/18 10:09 PEEP Not Reportable 11/02/18 10:09 Pressure Support Not Reportable 11/02/18 10:09 Pressure Control Not Reportable 11/02/18 10:09 EPAP Not Reportable 11/02/18 10:09 IPAP Not Reportable 11/02/18 10:09 BiPAP Not Reportable 11/02/18 10:09 Sodium 137 mmol/L (135-145) 11/09/18 05:11 Potassium 3.3 mmol/L (3.5-5.0) L 11/09/18 05:11 Chloride 106 mmol/L (101-111) 11/09/18 05:11 Carbon Dioxide 25 mmol/L (22-32) 11/09/18 05:11 Anion Gap 6 mmol/L (2-11) 11/09/18 05:11 BUN 14 mg/dL (6-24) 11/09/18 05:11 Creatinine 0.61 mg/dL (0.67-1.17) L 11/09/18 05:11 Est GFR ( Amer) 153.9 (>60) 11/09/18 05:11 Est GFR (Non-Af Amer) 127.2 (>60) 11/09/18 05:11 BUN/Creatinine Ratio 23.0 (8-20) H 11/09/18 05:11 Glucose 135 mg/dL (70-100) H 11/09/18 05:11 POC Glucose (mg/dL) 127 mg/dL (70-100) H 11/09/18 12:56 Lactic Acid 1.2 mmol/L (0.5-2.0) 11/01/18 18:19 Calcium 8.6 mg/dL (8.6-10.3) 11/09/18 05:11 Phosphorus 2.4 mg/dL (2.5-5.0) L 11/03/18 04:41 Magnesium 1.7 mg/dL (1.9-2.7) L 11/09/18 05:11 Total Bilirubin 1.10 mg/dL (0.2-1.0) H 11/04/18 04:23 AST 47 U/L (13-39) H 11/04/18 04:23 ALT 29 U/L (7-52) 11/04/18 04:23 Alkaline Phosphatase 99 U/L (34-104) 11/04/18 04:23 Total Creatine Kinase 164 U/L (10-223) 11/01/18 14:20 Troponin I 0.01 ng/mL (<0.04) 11/01/18 14:20 C-Reactive Protein 195.94 mg/L (<8.01) H 11/02/18 04:53 B-Natriuretic Peptide 149 pg/mL (<=100) H 11/01/18 14:20 Total Protein 6.7 g/dL (6.4-8.9) 11/04/18 04:23 Albumin 3.3 g/dL (3.2-5.2) 11/04/18 04:23 Globulin 3.4 g/dL (2-4) 11/04/18 04:23 Albumin/Globulin Ratio 1.0 (1-3) 11/04/18 04:23 Urine Color Yellow 11/01/18 14:20 Urine Appearance Clear 11/01/18 14:20 Urine pH 6.0 (5-9) 11/01/18 14:20 Ur Specific [place] 1.017 (1.010-1.030) 11/01/18 14:20 Urine Protein Negative (Negative) 11/01/18 14:20 Urine Ketones Negative (Negative) 11/01/18 14:20 Urine Blood Negative (Negative) 11/01/18 14:20 Urine Nitrate Negative (Negative) 11/01/18 14:20 Urine Bilirubin Negative (Negative) 11/01/18 14:20 Urine Urobilinogen Positive (Negative) A 11/01/18 14:20 Ur Leukocyte Esterase Negative (Negative) 11/01/18 14:20 Urine Glucose Negative (Negative) 11/01/18 14:20 Urine Ascorbic Acid * (Negative) A 11/01/18 14:20 - Objective Active Medications: Acetaminophen (Tylenol Supp*) 650 mg MS Q4H PRN PRN Reason: TEMPERATURE > 100.4 Last Admin: 11/01/18 22:08 Dose: 650 mg Albuterol/Ipratropium (Duoneb (Albuterol 2.5 Mg/Ipratropium 0.5 Mg)) 1 neb INH RT.[id number] AWAKE [facility] Last Admin: 11/09/18 12:07 Dose: Not Given Enoxaparin Sodium (Lovenox(*)) 90 mg SUBCUT Q12H [facility] Last Admin: 11/09/18 10:43 Dose: 90 mg Doxycycline Hyclate 100 mg/ (Sodium Chloride) 250 mls @ 250 mls/hr IVPB Q12H [facility] Last Admin: 11/09/18 12:59 Dose: 250 mls/hr Dextrose 1,000 ml/ Amino Acids 850 ml/ Sterile Water 150 ml/Fat Emulsion Intravenous 500 ml/ Sodium Chloride 100 meq/Potassium Chloride 50 meq/Potassium Phosphate 15 mmole/Calcium Gluconate 15 meq/Magnesium Sulfate 10 meq/ Multivitamins 10 ml/ Trace Metals 1 ml/ Nutrition ( Parenteral) 2,600.721 mls @ 108.422 mls/hr IV 1700 [facility]; Protocol Stop: 11/09/18 16:59 Last Admin: 11/08/18 17:20 Dose: 108.422 mls/hr Dextrose 1,000 ml/ Amino Acids 850 ml/ Sterile Water 150 ml/Fat Emulsion Intravenous 500 ml/ Sodium Chloride 100 meq/Potassium Chloride 70 meq/Potassium Phosphate 15 mmole/Calcium Gluconate 15 meq/Magnesium Sulfate 20 meq/ Multivitamins 10 ml/ Trace Metals 1 ml/ Nutrition ( Parenteral) 2,613.1841 mls @ 108.942 mls/hr IV 1700 [facility]; Protocol Latanoprost (Xalatan 0.005%*) 1 drop BOTH EYES BEDTIME [facility]; Protocol Last Admin: 11/08/18 20:31 Dose: 1 drop Ondansetron HCl (Zofran Inj*) 4 mg IV Q6H PRN PRN Reason: NAUSEA Pantoprazole Sodium (Protonix Iv*) 40 mg IV DAILY [facility] Last Admin: 11/09/18 08:47 Dose: 40 mg Vital Signs: Vital Signs: Temp Pulse Resp BP Pulse Ox 97.8 F 82 20 131/59 96 11/09/18 12:16 11/09/18 12:16 11/09/18 12:16 11/09/18 12:16 11/09/18 12:16 Patient Weight: Weight 95.617 kg Intake and Output: Intake & Output 11/07/18 11/08/18 11/09/18 11/10/18 06:59 06:59 06:59 06:59 Intake Total 1583 2289 255 Balance 1583 2289 255 Weight 95.617 kg 95.617 kg Intake: IV Fluids 1583 2039 255 ABX - DOXYCYCLINE 255 D5W 1/2 NS 1568 2039 NS (0.9%) 15 IVPB 250 ABX - DOXYCYCLINE 250 Oral 0 0 Other: Estimated Void Small # Bowel Movements 1 Estimated Stool Amount Large # Voids 1 ADLs: Meal Record Start: 11/01/18 22: 50 Freq: 09,,18 Status: Complete Protocol: Created 11/01/18 22:50 System (Rec: 11/01/18 22:50 System IMG-CS84) Document 11/02/18 09:00 [id number] (Rec: 11/02/18 09:42 [id number] ICU-C15) Document 11/02/18 13:00 HMJ2913 (Rec: 11/02/18 14:00 KSD2409 ICU-L03) Document 11/02/18 18:00 UIY1323 (Rec: 11/02/18 18:07 HBT0804 ICU-C15) Document 11/03/18 09:00 ZLS2455 (Rec: 11/03/18 11:41 MAF6533 ICU-L03) Document 11/03/18 13:00 PKH7562 (Rec: 11/03/18 16:29 TCX4696 ICU-L03) Document 11/03/18 18:00 EXI8062 (Rec: 11/03/18 18:32 SVB0370 ICU-L03) Document 11/04/18 09:00 FNS8540 (Rec: 11/04/18 10:59 HRB8277 ICU-C16) ADLs: Meal Record Start: 11/04/18 22: 34 Freq: Status: Active Protocol: Created 11/04/18 22:34 AED2856 (Rec: 11/04/18 22:34 KPR9430 TELE-C07) Document 11/04/18 22:35 LZG4519 (Rec: 11/04/18 22:37 VOU2737 TELE-C07) Document 11/05/18 19:44 LTT7050 (Rec: 11/05/18 19:44 IIZ9810 TELE-C01) Document 11/05/18 22:32 JGW5726 (Rec: 11/05/18 22:33 XHZ3710 TELE-C07) Document 11/08/18 20:01 QHX7759 (Rec: 11/08/18 20:02 BPV9417 TELE-C09) Intake and Output Start: 11/01/18 14: 32 Freq: Status: Active Protocol: Created 11/01/18 14:32 System (Rec: 11/01/18 14:32 System EDRM-C09) Document 11/04/18 22:37 SDN0721 (Rec: 11/04/18 22:37 TOL1138 TELE-C07) Document 11/05/18 06:51 QRI4532 (Rec: 11/05/18 06:52 TLG0370 TELE-C07) Document 11/07/18 06:38 RGS4583 (Rec: 11/07/18 06:38 QAL9120 TELE-C07) Intake and Output Start: 11/01/18 22: 50 Freq: Q4HR Status: Complete Protocol: Created 11/01/18 22:50 System (Rec: 11/01/18 22:50 System IMG-CS84) Document 11/01/18 23:00 ZGX3982 (Rec: 11/01/18 23:23 TFZ4242 ICU-C10) Document 11/02/18 01:00 WFJ3842 (Rec: 11/02/18 01:11 DEX8965 ICU-C10) Document 11/02/18 02:00 OJF0499 (Rec: 11/02/18 02:23 YFC6805 ICU-C16) Document 11/02/18 03:00 UHU8142 (Rec: 11/02/18 03:49 HPK7140 ICU-C16) Document 11/02/18 04:00 AFX1707 (Rec: 11/02/18 04:11 JBD4669 ICU-C16) Document 11/02/18 05:00 QVT8167 (Rec: 11/02/18 05:37 MMJ4546 IMG-M07) Document 11/02/18 05:40 HBK2567 (Rec: 11/02/18 05:40 OEC3730 IMG-M07) Document 11/02/18 07:00 DBB4491 (Rec: 11/02/18 09:11 NYZ4224 ICU-C15) Document 11/02/18 08:00 RCO2681 (Rec: 11/02/18 09:41 VBB8396 ICU-C15) Document 11/02/18 09:00 DXW7517 (Rec: 11/02/18 09:42 FYO7580 ICU-C15) Document 11/02/18 10:00 KXX9444 (Rec: 11/02/18 11:01 CXQ6674 ICU-C15) Document 11/02/18 11:00 LMU1252 (Rec: 11/02/18 11:14 LZW1903 ICU-C15) Document 11/02/18 12:00 JKU4555 (Rec: 11/02/18 12:26 EZR5700 ICU-C15) Document 11/02/18 13:00 ALF9533 (Rec: 11/02/18 14:00 MBT7172 ICU-L03) Document 11/02/18 14:00 ZHD4678 (Rec: 11/02/18 14:42 IVJ2295 ICU-C15) Document 11/02/18 15:00 XZG4640 (Rec: 11/02/18 15:50 SRB5544 ICU-L03) Document 11/02/18 16:00 UXW5241 (Rec: 11/02/18 16:32 VLH3418 ICU-C15) Document 11/02/18 17:00 OXT8562 (Rec: 11/02/18 17:05 TAJ8935 ICU-C15) Document 11/02/18 18:00 DIR8862 (Rec: 11/02/18 18:07 SYB0574 ICU-C15) Document 11/02/18 18:21 DGT1693 (Rec: 11/02/18 18:21 PJA3688 ICU-C15) Document 11/02/18 19:00 OQZ4409 (Rec: 11/02/18 21:21 OCX3176 G-M07) Document 11/02/18 20:00 LFH1679 (Rec: 11/02/18 22:53 SPJ3038 ICU-C16) Document 11/02/18 22:00 YJS1973 (Rec: 11/02/18 22:54 JHJ1728 ICU-C16) Document 11/02/18 23:00 USO4740 (Rec: 11/02/18 23:07 ISJ5594 ICU-C16) Document 11/03/18 00:41 XER4821 (Rec: 11/03/18 00:42 AFF6299 ICU-C16) Document 11/03/18 01:00 FLJ3199 (Rec: 11/03/18 01:44 BDO6542 ICU-C16) Document 11/03/18 02:00 KNG5795 (Rec: 11/03/18 02:18 JZJ0042 ICU-C16) Document 11/03/18 03:00 CAN5866 (Rec: 11/03/18 03:04 ZHA7478 ICU-C16) Document 11/03/18 04:00 SHR7048 (Rec: 11/03/18 04:37 ZDH0252 ICU-C16) Document 11/03/18 05:00 JRA3346 (Rec: 11/03/18 05:10 HGY5651 ICU-C16) Document 11/03/18 05:21 XHF1033 (Rec: 11/03/18 05:21 YIT3524 ICU-C16) Document 11/03/18 07:00 WUU4961 (Rec: 11/03/18 09:51 NXU5098 ICU-L03) Document 11/03/18 08:00 NQZ8131 (Rec: 11/03/18 09:51 TIQ5982 ICU-L03) Document 11/03/18 09:00 MBI2303 (Rec: 11/03/18 09:51 KNF4928 ICU-L03) Document 11/03/18 10:00 GCU5579 (Rec: 11/03/18 11:40 IAY0640 ICU-L03) Document 11/03/18 11:00 TLC8851 (Rec: 11/03/18 11:40 EDT6987 ICU-L03) Document 11/03/18 12:00 UCW7164 (Rec: 11/03/18 12:54 RPZ5949 ICU-L03) Document 11/03/18 13:00 PRF3515 (Rec: 11/03/18 16:29 FOY4055 ICU-L03) Document 11/03/18 14:00 WFO7797 (Rec: 11/03/18 16:29 VQC2488 ICU-L03) Document 11/03/18 15:00 XDJ8268 (Rec: 11/03/18 16:29 SYQ5138 ICU-L03) Document 11/03/18 16:00 ZFK6550 (Rec: 11/03/18 16:29 CVJ2696 ICU-L03) Document 11/03/18 17:00 ODC6762 (Rec: 11/03/18 18:32 WUA2566 ICU-L03) Document 11/03/18 18:00 BWF3544 (Rec: 11/03/18 18:32 XES1075 ICU-L03) Document 11/03/18 21:00 XST2923 (Rec: 11/03/18 21:10 GKE3725 ICU-C12) Document 11/03/18 22:00 PWN3907 (Rec: 11/03/18 22:07 AVR7395 ICU-C12) Document 11/03/18 23:00 DNP9965 (Rec: 11/03/18 23:04 EVO7096 ICU-C12) Document 11/04/18 00:00 PUG4636 (Rec: 11/04/18 01:00 CXK8764 ICU-C12) Document 11/04/18 01:00 VNR8085 (Rec: 11/04/18 01:01 NEJ4896 ICU-C12) Document 11/04/18 02:00 WAC5119 (Rec: 11/04/18 02:29 ZUQ1288 ICU-C12) Document 11/04/18 03:05 MLD4814 (Rec: 11/04/18 03:05 VLW4257 ICU-C12) Document 11/04/18 03:41 CNQ6797 (Rec: 11/04/18 03:41 MOO7338 ICU-C12) Document 11/04/18 08:00 KOX8262 (Rec: 11/04/18 08:51 EKQ4642 ICU-C16) Document 11/04/18 09:00 SHU6053 (Rec: 11/04/18 09:15 OTD4762 ICU-C16) Document 11/04/18 10:00 VSG4046 (Rec: 11/04/18 10:37 SES5318 ICU-C16) Eyes: PERRLA Ears/Nose/Mouth/Throat: Mucous Membranes Moist Neck: NL Appearance and Movements; NL JVP Cardiovascular: NL Sounds; No Murmurs; No JVD Respiratory: Symmetrical Chest Expansion and Respiratory Effort Abdominal: NL Sounds; No Tenderness; No Distention Extremities: No Clubbing, Cyanosis, - - bialteral LE edema Neurological: - - confused with left side deficit at baseline - Assessment Assessment: 78 yo male with multiple strokes presents with aspiration pneumonia and dysphagia - Plan Consult Plan (MU): Palliative Plan: Long discussion with about goals of care. is waiting for the results of barium swallow if dysphagia is correctable she would like pt to be discharged to home with VNS & AIM with PT/OT if the cause is not reversible she would like to pursue hospice which she has already contacted. wants to pursue care if there is hope of improvement. We discussed hospice and brochure was given. She has a hospital bed but is needing a commode which has been conveyed to case management. Pt has some issues about hospital care which I referred her to Kanchan Correa. She and her do not want a PEG tube. Pt is eligible for hospice with diagnosis of dysphagia and aspiration pneumonia. KPS 40%, PPS 40% - Time On Unit Date of Evaluation: 11/09/18 Hospice Consult Time in: 13:30 Hospice Consult Time Out: 15:00 Hospice Consult Time Total: 90 > 50% of Time Spend In Counseling or Coordinating Care: Yes
--- NOTE | 2018-11-09 16:46 | PN ---
Subjective Date of Service: 11/09/18 Interval History: Patient seen and examined. No acute overnight events. Pending barium swallow today. Patient is somewhat conversant with no complaints. Denies pain, states his breathing is "ok". No fevers or chills. Family History: Unchanged from Admission Social History: Unchanged from Admission Past Medical History: Unchanged from Admission Objective Active Medications: Acetaminophen (Tylenol Supp*) 650 mg MT Q4H PRN PRN Reason: TEMPERATURE > 100.4 Last Admin: 11/01/18 22:08 Dose: 650 mg Albuterol/Ipratropium (Duoneb (Albuterol 2.5 Mg/Ipratropium 0.5 Mg)) 1 neb INH [id number] [facility]WA[facility] Last Admin: 11/09/18 14:55 Dose: Not Given Enoxaparin Sodium (Lovenox(*)) 90 mg SUBCUT Q12H [facility] Last Admin: 11/09/18 10:43 Dose: 90 mg Doxycycline Hyclate 100 mg/ (Sodium Chloride) 250 mls @ 250 mls/hr IVPB Q12H [facility] Last Admin: 11/09/18 12:59 Dose: 250 mls/hr Dextrose 1,000 ml/ Amino Acids 850 ml/ Sterile Water 150 ml/Fat Emulsion Intravenous 500 ml/ Sodium Chloride 100 meq/Potassium Chloride 50 meq/Potassium Phosphate 15 mmole/Calcium Gluconate 15 meq/Magnesium Sulfate 10 meq/ Multivitamins 10 ml/ Trace Metals 1 ml/ Nutrition ( Parenteral) 2,600.721 mls @ 108.422 mls/hr IV 1700 [facility]; Protocol Stop: 11/09/18 16:59 Last Admin: 11/08/18 17:20 Dose: 108.422 mls/hr Dextrose 1,000 ml/ Amino Acids 850 ml/ Sterile Water 150 ml/Fat Emulsion Intravenous 500 ml/ Sodium Chloride 100 meq/Potassium Chloride 70 meq/Potassium Phosphate 15 mmole/Calcium Gluconate 15 meq/Magnesium Sulfate 20 meq/ Multivitamins 10 ml/ Trace Metals 1 ml/ Nutrition ( Parenteral) 2,613.1841 mls @ 108.942 mls/hr IV 1700 [facility]; Protocol Latanoprost (Xalatan 0.005%*) 1 drop BOTH EYES BEDTIME [facility]; Protocol Last Admin: 11/08/18 20:31 Dose: 1 drop Ondansetron HCl (Zofran Inj*) 4 mg IV Q6H PRN PRN Reason: NAUSEA Pantoprazole Sodium (Protonix Iv*) 40 mg IV DAILY [facility] Last Admin: 11/09/18 08:47 Dose: 40 mg Vital Signs - 8 hr 11/09/18 11/09/18 11/09/18 08:33 11:26 12:16 Temperature 97.8 F Pulse Rate 82 Respiratory 22 20 Rate Blood Pressure 131/59 (mmHg) O2 Sat by Pulse 96 96 Oximetry Oxygen Devices in Use Now: Nasal Cannula Appearance: alert, NAD Eyes: PERRLA Ears/Nose/Mouth/Throat: Mucous Membranes Moist Neck: NL Appearance and Movements; NL JVP, Trachea Midline Respiratory: Symmetrical Chest Expansion and Respiratory Effort, - - course breath sounds throughout Cardiovascular: NL Sounds; No Murmurs; No JVD, RRR Extremities: No Clubbing, Cyanosis Skin: No Rash or Ulcers Neurological: Alert and Oriented x 3 Nutrition: - - NPO Result Diagrams: 11/09/18 05:11 11/09/18 05:11 Microbiology and Other Data: Microbiology 11/01/18 14:30 Aerobic Blood Culture - Preliminary Blood Venous No Growth Day 1 Anaerobic Blood Culture - Preliminary No Growth Day 1 11/01/18 14:20 Aerobic Blood Culture - Preliminary Blood Venous No Growth Day 1 Anaerobic Blood Culture - Preliminary No Growth Day 1 11/02/18 05:26 Legionella Urinary Antigen - Final Urine Negative Legionella Antigen Streptococcus pneumoniae Ag Screen - Final Negative S. pneumo Antigen 11/01/18 19:27 Gram Stain - Final Sputum 11/01/18 23:12 Nasal Screen MRSA (PCR) - Final Nasal Mrsa Not Detected Diagnostic Imaging: Patient Name: REYNALDO CRAMER Medical Record#: [id number] Ordering Physician: Slade WAITE Acct.#: [id number] : 1940 Age: 78 Sex: M Location: [facility] Exam Date: 11/01/181920 ADM Status: ADM IN Order Information: CT CHEST/ABD/PEL W Accession Number: [id number] CPT: 31127 ADDENDUM Addendum created by Easton Uriostegui MD on 11/02/2018 12:56:53 AM EDT Recommend followup of the thoracic arch ectasia per institutional guidelines. Prior CT scan of the chest dated 06/19/2017 showed no change in the diameter the mid ascending aorta from today's study. Initial report created on 11/01/2018 9:52:39 PM EDT PROCEDURE INFORMATION: Exam: CT Chest With Contrast Exam date and time: 11/01/2018 8:42 PM Clinical history: 78 years old, male; Abdominal pain; Generalized; Other: Unknown; Additional info: Sepsis unknown origin ? pna vs intraabdominal path TECHNIQUE: Imaging protocol: Computed tomography of the chest with intravenous contrast. Radiation optimization: All CT scans at this facility use at least one of these dose optimization techniques: automated exposure control; mA and/or kV adjustment per patient size (includes targeted exams where dose is matched to clinical indication); or iterative reconstruction. Contrast material: OMNI 300; Contrast volume: 120 ml; Contrast route: IV; COMPARISON: C/A/P WO CT CHEST/ABD/PEL W/O 06/19/2017 2:04 PM FINDINGS: Limitations: Motion artifacts. Lungs: Consolidation of both lower lungs. The left lung being more involved than the right. Small lingular and right middle lung infiltrate. Pleural space: Small bilateral pleural effusions. No pneumothorax. Heart: Patient status post open heart surgery. Cardiac size is mildly enlarged. Severe coronary calcification. Mediastinum: No mediastinal mass. Small hiatal hernia. Aorta: Atheromatous changes involving the thoracic aorta. Ectasia of the ascending aorta. AP length of the mid ascending aorta is 4.2 cm. The AP length of the descending thoracic aorta at the level of the nohelia is 2.8 cm. Lymph nodes: No mediastinal adenopathy. Bones/joints: Degenerative changes of both shoulders. No overlapping rib fractures. Spondylotic changes of the thoracic spine. Soft tissues: Unremarkable. Stomach and bowel: Anterior confluent osteophyte formation from the cervical thoracic junction to the thoracolumbar junction. IMPRESSION: Bilateral lower lobe consolidation and small right middle lung and lingular infiltrates. The left lung being more involved than the right. This could represent a multilobar pneumonia. Small associated pleural effusions. Left greater than right. [facility] Patient Name:REYNALDO CRAMER MR:[id number] : 1940 PROCEDURE INFORMATION: Exam: CT Abdomen and Pelvis With Contrast Exam date and time: 11/01/2018 8:42 PM Clinical history: 78 years old, male; Abdominal pain; Generalized; Other: Unknown; Additional info: Sepsis unknown origin ? pna vs intraabdominal path TECHNIQUE: Imaging protocol: Computed tomography of the abdomen and pelvis with intravenous contrast. Radiation optimization: All CT scans at this facility use at least one of these dose optimization techniques: automated exposure control; mA and/or kV adjustment per patient size (includes targeted exams where dose is matched to clinical indication); or iterative reconstruction. Contrast material: OMNI 300; Contrast volume: 120 ml; Contrast route: IV; COMPARISON: C/A/P WO CT CHEST/ABD/PEL W/O 06/19/2017 2:04 PM FINDINGS: Liver: Normal. No mass. Gallbladder and bile ducts: Calcified stone located in the neck of the gallbladder. This was seen on prior CT scan dated 06/19/2017 and is unchanged in position. Pancreas: Normal. No ductal dilation. Spleen: Small punctate splenic calcification. The spleen is of normal size. Adrenals: Normal. No mass. Kidneys and ureters: Left renal cortical cyst measuring 3.9 cm in length. This has a density of 22 Hounsfield units. No hydronephrosis or nephrolithiasis. Stomach and bowel: No bowel obstruction. Diverticular changes involving the colon. No evidence of acute diverticulitis. Appendix: No evidence of appendicitis. Intraperitoneal space: Unremarkable. No free air. No significant fluid collection. Vasculature: Calcification of the wall of the abdominal aorta and iliac arteries. No aneurysm. Lymph nodes: Unremarkable. No enlarged lymph nodes. Bladder: Unremarkable as visualized. Reproductive: Unremarkable as visualized. Bones/joints: Spondylotic changes lumbar spine. Laminectomy from L3 to L5. No evidence of fracture or malalignment. Several threaded screws coursing through the left hip. Soft tissues: Unremarkable. Other findings: Limitation: Artifact created by the right arm. IMPRESSION: 1. No acute findings. 2. Cholelithiasis. Assess/Plan/Problems-Billing Assessment: Mr. Cramer is an 78 yo M with PMH of CVA, CAD, HTN, and MDS; who presented to the ED with report of AMS, vomiting and fever and was found to have pneumonia, possibly aspiration. - Patient Problems (1) Dysphagia Code(s): R13.10 - DYSPHAGIA, UNSPECIFIED SNOMED Code(s): 62104900 Comment: - Had an episode of aspiration on 11/03/18, suspect aspiration is the etiology for this admission overall - Failed swallow eval x2, discussed with MANAGER LABORATORY - PPN initiated as short term solution - Unable to have barium swallow today, technical problem with equipment today, will try tomorrow. - Discussion must be had with again if patient fails on barium swallow, as MOLST reflected no PEG tube, Palliative also following (2) Acute respiratory failure Code(s): J96.00 - ACUTE RESPIRATORY FAILURE, UNSP W HYPOXIA OR HYPERCAPNIA SNOMED Code(s): 59029506 Comment: - Secondary to pneumonia/aspiration - Previously requiring Vapotherm, now on NC - Pulmonary toileting as tolerated - Continue nebs (3) Sepsis Comment: - Resolved - Met criteria on admission with tachycardia and fever >103; source likely aspiration pneumonia - Blood cultures negative (4) Multilobar lung infiltrate Code(s): R91.8 - OTHER NONSPECIFIC ABNORMAL FINDING OF LUNG FIELD SNOMED Code( s): 8391739113497 Comment: - Appears overall improved from yesterday - Likely secondary to aspiration/vomitus prior to arrival with questioable coffee ground emesis - Sputum culture 11/01 and 11/03 growing MRSA - Continue doxy, responding well (5) Coronary artery disease Code(s): I25.10 - ATHSCL HEART DISEASE OF [place] CORONARY ARTERY W/O ANG PCTRS SNOMED Code(s): 04737670 Comment: - With history of CABG - Hold meds while NPO - Continue tele (6) GERD (gastroesophageal reflux disease) Code(s): K21.9 - GASTRO-ESOPHAGEAL REFLUX DISEASE WITHOUT ESOPHAGITIS SNOMED Code(s): 661492273 Comment: - Continue pantoprazole (7) H/O: CVA (cerebrovascular accident) Code(s): Z86.73 - PRSNL HX OF TIA (TIA), AND CEREB INFRC W/O RESID DEFICITS SNOMED Code(s): 165078963 Comment: - Multiple prior infarcts, 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 - HAS-BLED score is 4 indicating an 8.9% risk of bleeds per 100 patient years; CHADS-VASC2 score is 6 indicating a 9.7% risk of stroke per year - INR dropped therapeutic Lovenox initiated on 11/07, as coumadin was held in light of low H&H and potential bleeding - Possibility of bridging back to Coumadin if able to tolerate PO intake (8) Myelodysplastic disease Code(s): C94.6 - MYELODYSPLASTIC DISEASE, NOT CLASSIFIED SNOMED Code(s): 996337012 Comment: - Pancytopenia at baseline, monitor PLTS while on lovenox and hold if drop below 50 (9) DVT prophylaxis Code(s): KGC3041 - SNOMED Code(s): 601772160 Comment: - Lovenox (10) DNR (do not resuscitate) Comment: Status and Disposition: Inpatient for acute respiratory failure and dysphagia. Anticipate d/c back to [facility] when medically stable.
[2018-11-09] MEDS: TPN* 24 HR with D10W 1000 ML BAG* 1,000 ML, Amino Acid Infusion 10%* 850 ML, Sterile Wa... IV SCH ×12 (17:54)
[2018-11-09] MEDS: Latanoprost 0.005%* 2.5 ml BTL BOTH EYES SCH (20:22)
[2018-11-10] MEDS: Enoxaparin(*) 100 MG/ML SYR SUBCUT SCH ×3 (00:31→22:11)
[2018-11-10] MEDS: DOXYcycline IV* 100 MG in NS 0.9% 250 ML* 250 ML IVPB SCH ×3 (00:46→22:13)
[2018-11-10] MEDS: Albuterol/Ipratropium NEB.SOL* Albuterol 2.5 MG/Ipratropium 0.5 MG 3 ML INH SCH ×7 (03:16→22:56)
[2018-11-10 05:40] LABS: ABS Monocytes 0.4 10^3/ul (0-0.8); ABS Neutrophils 2.1 10^3/ul (1.5-7.7); Hematocrit 26 % (42-52); Hemoglobin 8.7 g/dL (14.0-18.0); Mean Corpuscular HGB Conc 34 g/dL (31-36); Mean Corpuscular Hemoglobin 30 pg (27-31); Mean Corpuscular Volume 88 fL (80-94); Mean Platelet Volume 10.6 fL (7.4-10.4); Nucleated Red Blood Cells % 0.1; Platelet Count 87 10^3/uL (150-450); Red Blood Count 2.92 10^6 /uL (4.18-5.48); Red Cell Distribution Width 17 % (10-15); White Blood Count 3.5 10^3/uL (3.5-10.8)
[2018-11-10 05:50] LABS: Albumin 3.2 g/dL (3.2-5.2); BUN/Creatinine Ratio 22.8 (8-20); Calcium 8.4 mg/dL (8.6-10.3); EGFR African American 166.4 (>60); EGFR Non-African American 137.5 (>60); Globulin 3.1 g/dL (2-4); Magnesium 1.9 mg/dL (1.9-2.7); Potassium 3.5 mmol/L (3.5-5.0); Total Bilirubin 0.5 mg/dL (0.2-1.0); Total Protein 6.3 g/dL (6.4-8.9)
[2018-11-10 06:31] LABS: Platelet Morphology Large
[2018-11-10 06:32] LABS: Polychromasia 1+
[2018-11-10 06:33] LABS: Lymphocyte % 28.3 %
--- NOTE | 2018-11-10 09:19 | PN ---
Subjective Date of Service: 11/10/18 Interval History: Mr. Freeman was unable to get a barium swallow yesterday due to the machine malfunctioning. He is feeling okay today. No overnight events. Family History: Unchanged from Admission Social History: Unchanged from Admission Past Medical History: Unchanged from Admission Objective Active Medications: Acetaminophen (Tylenol Supp*) 650 mg MN Q4H PRN PRN Reason: TEMPERATURE > 100.4 Last Admin: 11/01/18 22:08 Dose: 650 mg Albuterol/Ipratropium (Duoneb (Albuterol 2.5 Mg/Ipratropium 0.5 Mg)) 1 neb INH [id number] AWAKE [facility] Last Admin: 11/10/18 08:08 Dose: Not Given Enoxaparin Sodium (Lovenox(*)) 90 mg SUBCUT Q12H [facility] Last Admin: 11/10/18 00:31 Dose: 90 mg Doxycycline Hyclate 100 mg/ (Sodium Chloride) 250 mls @ 250 mls/hr IVPB Q12H [facility] Last Admin: 11/10/18 00:46 Dose: 250 mls/hr Dextrose 1,000 ml/ Amino Acids 850 ml/ Sterile Water 150 ml/Fat Emulsion Intravenous 500 ml/ Sodium Chloride 100 meq/Potassium Chloride 70 meq/Potassium Phosphate 15 mmole/Calcium Gluconate 15 meq/Magnesium Sulfate 20 meq/ Multivitamins 10 ml/ Trace Metals 1 ml/ Nutrition ( Parenteral) 2,613.1841 mls @ 108.942 mls/hr IV 1700 [facility]; Protocol Last Admin: 11/09/18 17:54 Dose: 108.942 mls/hr Latanoprost (Xalatan 0.005%*) 1 drop BOTH EYES BEDTIME [facility]; Protocol Last Admin: 11/09/18 20:22 Dose: 1 drop Ondansetron HCl (Zofran Inj*) 4 mg IV Q6H PRN PRN Reason: NAUSEA Pantoprazole Sodium (Protonix Iv*) 40 mg IV DAILY [facility] Last Admin: 11/09/18 08:47 Dose: 40 mg Vital Signs - 8 hr 11/10/18 11/10/18 03:41 04:14 Temperature 98.5 F Pulse Rate 81 86 Respiratory 16 18 Rate Blood Pressure 123/73 (mmHg) O2 Sat by Pulse 98 96 Oximetry Oxygen Devices in Use Now: Nasal Cannula Appearance: alert, no distress, breathing comfortably Eyes: No Scleral Icterus Abdominal: NL Sounds; No Tenderness; No Distention Extremities: No Edema Neurological: - - strength 3/5 in RUE and RLE, 1/5 in LUE and LLE. L-sided facial droop. Result Diagrams: 11/10/18 05:06 11/10/18 05:06 Microbiology and Other Data: Microbiology 11/01/18 14:30 Aerobic Blood Culture - Preliminary Blood Venous No Growth Day 1 Anaerobic Blood Culture - Preliminary No Growth Day 1 11/01/18 14:20 Aerobic Blood Culture - Preliminary Blood Venous No Growth Day 1 Anaerobic Blood Culture - Preliminary No Growth Day 1 11/02/18 05:26 Legionella Urinary Antigen - Final Urine Negative Legionella Antigen Streptococcus pneumoniae Ag Screen - Final Negative S. 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 Prior CT scan of the chest dated 06/19/2017 showed no change in the diameter the mid ascending aorta from today's study. Initial report created on 11/01/2018 9:52:39 PM EDT PROCEDURE INFORMATION: Exam: CT Chest With Contrast Exam date and time: 11/01/2018 8:42 PM Clinical history: 78 years old, male; Abdominal pain; Generalized; Other: Unknown; Additional info: Sepsis unknown origin ? pna vs intraabdominal path TECHNIQUE: Imaging protocol: Computed tomography of the chest with intravenous contrast. Radiation optimization: All CT scans at this facility use at least one of these dose optimization techniques: automated exposure control; mA and/or kV adjustment per patient size (includes targeted exams where dose is matched to clinical indication); or iterative reconstruction. Contrast material: OMNI 300; Contrast volume: 120 ml; Contrast route: IV; COMPARISON: C/A/P WO CT CHEST/ABD/PEL W/O 06/19/2017 2:04 PM FINDINGS: Limitations: Motion artifacts. Lungs: Consolidation of both lower lungs. The left lung being more involved than the right. Small lingular and right middle lung infiltrate. Pleural space: Small bilateral pleural effusions. No pneumothorax. Heart: Patient status post open heart surgery. Cardiac size is mildly enlarged. Severe coronary calcification. Mediastinum: No mediastinal mass. Small hiatal hernia. Aorta: Atheromatous changes involving the thoracic aorta. Ectasia of the ascending aorta. AP length of the mid ascending aorta is 4.2 cm. The AP length of the descending thoracic aorta at the level of the nohelia is 2.8 cm. Lymph nodes: No mediastinal adenopathy. Bones/joints: Degenerative changes of both shoulders. No overlapping rib fractures. Spondylotic changes of the thoracic spine. Soft tissues: Unremarkable. Stomach and bowel: Anterior confluent osteophyte formation from the cervical thoracic junction to the thoracolumbar junction. IMPRESSION: Bilateral lower lobe consolidation and small right middle lung and lingular infiltrates. The left lung being more involved than the right. This could represent a multilobar pneumonia. Small associated pleural effusions. Left greater than right. [facility] Patient Name:REYNALDO FREEMAN MR:[id number] : 1940 PROCEDURE INFORMATION: Exam: CT Abdomen and Pelvis With Contrast Exam date and time: 11/01/2018 8:42 PM Clinical history: 78 years old, male; Abdominal pain; Generalized; Other: Unknown; Additional info: Sepsis unknown origin ? pna vs intraabdominal path TECHNIQUE: Imaging protocol: Computed tomography of the abdomen and pelvis with intravenous contrast. Radiation optimization: All CT scans at this facility use at least one of these dose optimization techniques: automated exposure control; mA and/or kV adjustment per patient size (includes targeted exams where dose is matched to clinical indication); or iterative reconstruction. Contrast material: OMNI 300; Contrast volume: 120 ml; Contrast route: IV; COMPARISON: C/A/P WO CT CHEST/ABD/PEL W/O 06/19/2017 2:04 PM FINDINGS: Liver: Normal. No mass. Gallbladder and bile ducts: Calcified stone located in the neck of the gallbladder. This was seen on prior CT scan dated 06/19/2017 and is unchanged in position. Pancreas: Normal. No ductal dilation. Spleen: Small punctate splenic calcification. The spleen is of normal size. Adrenals: Normal. No mass. Kidneys and ureters: Left renal cortical cyst measuring 3.9 cm in length. This has a density of 22 Hounsfield units. No hydronephrosis or nephrolithiasis. Stomach and bowel: No bowel obstruction. Diverticular changes involving the colon. No evidence of acute diverticulitis. Appendix: No evidence of appendicitis. Intraperitoneal space: Unremarkable. No free air. No significant fluid collection. Vasculature: Calcification of the wall of the abdominal aorta and iliac arteries. No aneurysm. Lymph nodes: Unremarkable. No enlarged lymph nodes. Bladder: Unremarkable as visualized. Reproductive: Unremarkable as visualized. Bones/joints: Spondylotic changes lumbar spine. Laminectomy from L3 to L5. No evidence of fracture or malalignment. Several threaded screws coursing through the left hip. Soft tissues: Unremarkable. Other findings: Limitation: Artifact created by the right arm. IMPRESSION: 1. No acute findings. 2. Cholelithiasis. Assess/Plan/Problems-Billing Assessment: Mr. Freeman is an 78 yo M with PMH of CVA, CAD, HTN, and MDS; who presented to the ED with report of AMS, vomiting and fever and was found to have pneumonia, possibly aspiration. - Patient Problems (1) MRSA pneumonia Current Visit: Yes Status: Acute Code(s): J15.212 - PNEUMONIA DUE TO METHICILLIN RESISTANT STAPHYLOCOCCUS AUREUS SNOMED Code(s): 995692238695023 Comment: doxycycline repeat CXR today (2) Acute respiratory failure Current Visit: Yes Status: Acute Code(s): J96.00 - ACUTE RESPIRATORY FAILURE , UNSP W HYPOXIA OR HYPERCAPNIA SNOMED Code(s): 35130441 Comment: concerning for aspiration recheck CXR today plan for barium swallow today per speech therapy's recommendations sudden change in ability to swallow also concerning for watershed program manager process; will check MRI today as well still on 4L O2 (3) Myelodysplasia (myelodysplastic syndrome) Current Visit: Yes Status: Acute Code(s): D46.9 - MYELODYSPLASTIC SYNDROME, UNSPECIFIED SNOMED Code(s): 142224091 Comment: counts are at baseline no signs of bleeding (4) Chronic systolic congestive heart failure Current Visit: Yes Status: Acute Code(s): I50.22 - CHRONIC SYSTOLIC ( CONGESTIVE) HEART FAILURE SNOMED Code(s): 796261598 Comment: with some evidence of mild volume overload Last echo showed EF 40-45% Holding meds while NPO (5) Cerebrovascular accident Current Visit: No Status: Acute Priority: High Onset Date: 10/14/14 Code (s): I63.9 - CEREBRAL INFARCTION, UNSPECIFIED SNOMED Code(s): 699813000 Comment: - Continue Warfarin and monitor INR. - D/w - states he's being w/u for seizures as outpatient - will request Neuro consult. Status and Disposition: Inpatient for acute respiratory failure and dysphagia. Plan for MRI, barium swallow, CXR, and neuro consult today. Plan discussed with his , his nurse , Dr. Fernandes, and the patient.
[2018-11-10] MEDS: Pantoprazole IV* 40 MG IV SCH (10:14)
--- NOTE | 2018-11-10 15:33 | CONS ---
CC: Dr. Fernandes * NEUROLOGY CONSULTATION: DATE OF CONSULT: 11/10/18 LOCATION: He is an inpatient. REFERRING PROVIDER: Dr. Young. CHIEF COMPLAINT: Aspiration pneumonia, multiple strokes, swallowing difficulties. 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 He had been sick for approximately a week or so prior to that with vomiting and constipation and ultimately came in with mental status changes and was found to have pneumonia. After an intensive care unit stay, he was transferred to the floor. It has been noted that his swallowing has been very impaired since initial evaluation by the speech and swallowing therapists. I was asked to see him regarding the possibility of a new neurological deficit causing a difficulty with swallowing. He has had multiple prior strokes going back a number of years. I had seen him initially I believe in 2013 when he presented with a left hemiparesis. He had a left thalamic stroke years prior to that. Over the years, he had multiple more strokes and was transferred to anticoagulant therapy from antiplatelet therapy, although to the best of my knowledge he never had a cardioembolic source identified. He has had problems with swallowing such that the group home where he resides has used thick-it for clear liquids. However, he was able to eat. Hospital records indicate some improvement since admission in swallowing and decrease in gagging and coughing, but not to the point where he is able to take food orally. He is currently getting parenteral nutrition. He had an MRI scan of the brain earlier today and the report is pending. I reviewed the images and he has multiple small vessel infarctions, but I do not see anything that looks like an acute infarction. 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 MEDICATIONS: Current medications consists of: 1. Doxycycline 100 mg q.12 hours IV. 2. Lovenox 90 mg subcutaneous q.12 hours. 3. Parenteral nutrition. 4. Zofran 4 mg IV q.6 hours as needed for nausea. 5. Protonix 40 mg IV daily. REVIEW OF SYSTEMS: Review of systems from the patient is fairly nonproductive. His feels his speech is no different that it had been previously. He is generally weaker than he was prior to this admission, but again he has been in bed for over a week now. At his group home, he can ambulate with a walker very short distances with the assist of one. Currently, he denies headache. PHYSICAL EXAM: He is well nourished and well hydrated and in fact overweight. Temperature is 99.4 most recently by temporal scan, blood pressure 120/50, heart rate is in the 80s and seems regular. Oxygen saturation is 94% on 3 L by nasal cannula. Heart tones are normal. I do not hear any murmurs. Neurological Exam: Pupils are very small and perhaps 2 mm, reacting to light to perhaps 1.75 mm. Eye movements are full. He has a dense left homonymous hemianopia. He has a dense left spastic hemiparesis. He has left facial weakness. Reports facial sensation as symmetric. The tongue does protrude in the midline and palate does rise symmetrically. He has a very weak gag response. Speech is dysarthric, but intelligible. He has grade 4 weakness of the right upper and grade 4- of the right lower extremity. He is conversant, but all history comes from his . Language is simple, but fluent in its limited fashion. LABORATORY DATA: Includes CBC today with a stable hemoglobin at 8.7, white blood cell count is actually up a little bit at 3.5. Platelet count is stable at 87,000. INR is elevated on 11/09/18 at 1.28. Chemistries notable for a stable creatinine this morning at 0.57. Electrolytes are otherwise normal. His glucose is elevated at 145, calcium is low at 8.4 but albumin is 3.2 this morning. Magnesium this morning is normal at 1.9. IMPRESSION AND PLAN: Impression is that of dysphasia and aspiration pneumonia in a patient with multiple strokes. I am awaiting the interpretation of the MRI scan by Radiology, but I do not see evidence of an acute or subacute stroke involving brain stem or elsewhere. I think he probably just aspirated in the setting of vomiting and then became very weak with generalized infection. He has had a fairly prolonged hospital stay further causing weakness. Between his infection and medications that probably further depressed his level of consciousness and aggravated his dysphagia. Unless the radiologist sees something that I do not, I do not think he has had another stroke and therefore I think he could recover to the level that he was before he became sick or at least close to it. I have advised his accordingly. I am going to send off for myasthenia gravis antibody testing , although I think it extremely unlikely that he may have developed that on top of his other numerous medical problems. He can follow up as an outpatient with Dr. Fernandes. If he does show evidence of stroke on his neuro imaging, then I will have our team follow up on him while he is still here in the hospital, but otherwise I would anticipate outpatient followup. [id number]/[facility] [place] #: [id number] DIEGO
[2018-11-10] MEDS: TPN* 24 HR with D10W 1000 ML BAG* 1,000 ML, Amino Acid Infusion 10%* 850 ML, Sterile Wa... IV SCH ×12 (17:37)
[2018-11-10] MEDS: Latanoprost 0.005%* 2.5 ml BTL BOTH EYES SCH (20:48)
[2018-11-11] MEDS: Albuterol/Ipratropium NEB.SOL* Albuterol 2.5 MG/Ipratropium 0.5 MG 3 ML INH SCH ×2 (03:17→09:10)
[2018-11-11 07:25] LABS: BUN/Creatinine Ratio 21.3 (8-20); Calcium 8.7 mg/dL (8.6-10.3); EGFR African American 153.9 (>60); EGFR Non-African American 127.2 (>60); Potassium 3.8 mmol/L (3.5-5.0)
[2018-11-11] MEDS: Pantoprazole IV* 40 MG IV SCH (07:51)
[2018-11-11] MEDS ORDERED: Albuterol/Ipratropium NEB.SOL* Albuterol 2.5 MG/Ipratropium 0.5 MG 3 ML INH PRN (09:22)
[2018-11-11] MEDS: Enoxaparin(*) 100 MG/ML SYR SUBCUT SCH ×2 (10:34→21:47)
[2018-11-11] MEDS: DOXYcycline IV* 100 MG in NS 0.9% 250 ML* 250 ML IVPB SCH ×2 (10:34→21:47)
--- NOTE | 2018-11-11 16:38 | PN ---
Subjective Date of Service: 11/11/18 Interval History: No overnight events. This morning when I saw him he was very alert and able to tell me he was feeling well and "it's a new day." This afternoon he is very sleepy. Family History: Unchanged from Admission Social History: Unchanged from Admission Past Medical History: Unchanged from Admission Objective Active Medications: Acetaminophen (Tylenol Supp*) 650 mg VT Q4H PRN PRN Reason: TEMPERATURE > 100.4 Last Admin: 11/01/18 22:08 Dose: 650 mg Albuterol/Ipratropium (Duoneb (Albuterol 2.5 Mg/Ipratropium 0.5 Mg)) 1 neb INH [id number] AWAKE PRN PRN Reason: WHEEZING Enoxaparin Sodium (Lovenox(*)) 90 mg SUBCUT Q12H [facility] Last Admin: 11/11/18 10:34 Dose: 90 mg Doxycycline Hyclate 100 mg/ (Sodium Chloride) 250 mls @ 250 mls/hr IVPB Q12H [facility] Last Admin: 11/11/18 10:34 Dose: 250 mls/hr Dextrose 1,000 ml/ Amino Acids 850 ml/ Sterile Water 150 ml/Fat Emulsion Intravenous 500 ml/ Sodium Chloride 100 meq/Potassium Chloride 70 meq/Potassium Phosphate 15 mmole/Calcium Gluconate 15 meq/Magnesium Sulfate 20 meq/ Multivitamins 10 ml/ Trace Metals 1 ml/ Nutrition ( Parenteral) 2,613.1841 mls @ 108.942 mls/hr IV 1700 [facility]; Protocol Last Admin: 11/10/18 17:37 Dose: 108.942 mls/hr Latanoprost (Xalatan 0.005%*) 1 drop BOTH EYES BEDTIME [facility]; Protocol Last Admin: 11/10/18 20:48 Dose: 1 drop Ondansetron HCl (Zofran Inj*) 4 mg IV Q6H PRN PRN Reason: NAUSEA Pantoprazole Sodium (Protonix Iv*) 40 mg IV DAILY [facility] Last Admin: 11/11/18 07:51 Dose: 40 mg Vital Signs - 8 hr 11/11/18 11/11/18 12:00 16:00 Temperature 97.8 F 98.4 F Pulse Rate 78 80 Respiratory 20 18 Rate Blood Pressure 125/54 129/59 (mmHg) O2 Sat by Pulse 99 100 Oximetry Oxygen Devices in Use Now: Nasal Cannula Appearance: alert, ill appearing, coughs frequently but struggles to spit out the phlegm Eyes: No Scleral Icterus Ears/Nose/Mouth/Throat: - - left facial droop Neck: NL Appearance and Movements; NL JVP Respiratory: - - diffusely rhonchorous Abdominal: NL Sounds; No Tenderness; No Distention Extremities: - - 2+ edema b/l Skin: No Rash or Ulcers Result Diagrams: 11/10/18 05:06 11/11/18 06:49 Microbiology and Other Data: Microbiology 11/01/18 14:30 Aerobic Blood Culture - Preliminary Blood Venous No Growth Day 1 Anaerobic Blood Culture - Preliminary No Growth Day 1 11/01/18 14:20 Aerobic Blood Culture - Preliminary Blood Venous No Growth Day 1 Anaerobic Blood Culture - Preliminary No Growth Day 1 11/02/18 05:26 Legionella Urinary Antigen - Final Urine Negative Legionella Antigen Streptococcus pneumoniae Ag Screen - Final Negative S. pneumo Antigen 11/01/18 19:27 Gram Stain - Final Sputum 11/01/18 23:12 Nasal Screen MRSA (PCR) - Final Nasal Mrsa Not Detected Diagnostic Imaging: Patient Name: REYNALDO FREEMAN Medical Record#: [id number] Ordering Physician: Slade WAITE Acct.#: [id number] : 1940 Age: 78 Sex: M Location: INTENSIVE CARE UNIT Exam Date: 11/01/181920 ADM Status: ADM IN Order Information: CT CHEST/ABD/PEL W Accession Number: [id number] CPT: 61244 ADDENDUM Addendum created by Easton Uriostegui MD on 11/02/2018 12:56:53 AM EDT Recommend followup of the thoracic arch ectasia per institutional guidelines. Prior CT scan of the chest dated 06/19/2017 showed no change in the diameter the mid ascending aorta from today's study. Initial report created on 11/01/2018 9:52:39 PM EDT PROCEDURE INFORMATION: Exam: CT Chest With Contrast Exam date and time: 11/01/2018 8:42 PM Clinical history: 78 years old, male; Abdominal pain; Generalized; Other: Unknown; Additional info: Sepsis unknown origin ? pna vs intraabdominal path TECHNIQUE: Imaging protocol: Computed tomography of the chest with intravenous contrast. Radiation optimization: All CT scans at this facility use at least one of these dose optimization techniques: automated exposure control; mA and/or kV adjustment per patient size (includes targeted exams where dose is matched to clinical indication); or iterative reconstruction. Contrast material: OMNI 300; Contrast volume: 120 ml; Contrast route: IV; COMPARISON: C/A/P WO CT CHEST/ABD/PEL W/O 06/19/2017 2:04 PM FINDINGS: Limitations: Motion artifacts. Lungs: Consolidation of both lower lungs. The left lung being more involved than the right. Small lingular and right middle lung infiltrate. Pleural space: Small bilateral pleural effusions. No pneumothorax. Heart: Patient status post open heart surgery. Cardiac size is mildly enlarged. Severe coronary calcification. Mediastinum: No mediastinal mass. Small hiatal hernia. Aorta: Atheromatous changes involving the thoracic aorta. Ectasia of the ascending aorta. AP length of the mid ascending aorta is 4.2 cm. The AP length of the descending thoracic aorta at the level of the nohelia is 2.8 cm. Lymph nodes: No mediastinal adenopathy. Bones/joints: Degenerative changes of both shoulders. No overlapping rib fractures. Spondylotic changes of the thoracic spine. Soft tissues: Unremarkable. Stomach and bowel: Anterior confluent osteophyte formation from the cervical thoracic junction to the thoracolumbar junction. IMPRESSION: Bilateral lower lobe consolidation and small right middle lung and lingular infiltrates. The left lung being more involved than the right. This could represent a multilobar pneumonia. Small associated pleural effusions. Left greater than right. [facility] Patient Name:REYNALDO FREEMAN MR:[id number] : 1940 PROCEDURE INFORMATION: Exam: CT Abdomen and Pelvis With Contrast Exam date and time: 11/01/2018 8:42 PM Clinical history: 78 years old, male; Abdominal pain; Generalized; Other: Unknown; Additional info: Sepsis unknown origin ? pna vs intraabdominal path TECHNIQUE: Imaging protocol: Computed tomography of the abdomen and pelvis with intravenous contrast. Radiation optimization: All CT scans at this facility use at least one of these dose optimization techniques: automated exposure control; mA and/or kV adjustment per patient size (includes targeted exams where dose is matched to clinical indication); or iterative reconstruction. Contrast material: OMNI 300; Contrast volume: 120 ml; Contrast route: IV; COMPARISON: C/A/P WO CT CHEST/ABD/PEL W/O 06/19/2017 2:04 PM FINDINGS: Liver: Normal. No mass. Gallbladder and bile ducts: Calcified stone located in the neck of the gallbladder. This was seen on prior CT scan dated 06/19/2017 and is unchanged in position. Pancreas: Normal. No ductal dilation. Spleen: Small punctate splenic calcification. The spleen is of normal size. Adrenals: Normal. No mass. Kidneys and ureters: Left renal cortical cyst measuring 3.9 cm in length. This has a density of 22 Hounsfield units. No hydronephrosis or nephrolithiasis. Stomach and bowel: No bowel obstruction. Diverticular changes involving the colon. No evidence of acute diverticulitis. Appendix: No evidence of appendicitis. Intraperitoneal space: Unremarkable. No free air. No significant fluid collection. Vasculature: Calcification of the wall of the abdominal aorta and iliac arteries. No aneurysm. Lymph nodes: Unremarkable. No enlarged lymph nodes. Bladder: Unremarkable as visualized. Reproductive: Unremarkable as visualized. Bones/joints: Spondylotic changes lumbar spine. Laminectomy from L3 to L5. No evidence of fracture or malalignment. Several threaded screws coursing through the left hip. Soft tissues: Unremarkable. Other findings: Limitation: Artifact created by the right arm. IMPRESSION: 1. No acute findings. 2. Cholelithiasis. Assess/Plan/Problems-Billing Assessment: Mr. Freeman is an 78 yo M with PMH of CVA, CAD, HTN, and MDS; who presented to the ED with report of AMS, vomiting and fever and was found to have pneumonia, possibly aspiration. - Patient Problems (1) MRSA pneumonia Current Visit: Yes Status: Acute Code(s): J15.212 - PNEUMONIA DUE TO METHICILLIN RESISTANT STAPHYLOCOCCUS AUREUS SNOMED Code(s): 463105901069493 Comment: doxycycline day 6 not consistent with the history of aspiration; will add anaerobic coverage repeat CXR yesterday looked more like pulmonary edema than pneumonia -- I will get a TTE tomorrow and try gentle diuresis (tte 2017 showed ef of 40%) (2) Acute respiratory failure Current Visit: Yes Status: Acute Code(s): J96.00 - ACUTE RESPIRATORY FAILURE , UNSP W HYPOXIA OR HYPERCAPNIA SNOMED Code(s): 52274154 Comment: suspicious for aspiration, though again cxr yesterday looked like edema and will get TTE tomorrow and try gentle diuresis today still on 4L O2 (3) Myelodysplasia (myelodysplastic syndrome) Current Visit: Yes Status: Acute Code(s): D46.9 - MYELODYSPLASTIC SYNDROME, UNSPECIFIED SNOMED Code(s): 620685281 Comment: counts are at baseline no signs of bleeding (4) Chronic systolic congestive heart failure Current Visit: Yes Status: Acute Code(s): I50.22 - CHRONIC SYSTOLIC ( CONGESTIVE) HEART FAILURE SNOMED Code(s): 555621725 Comment: with some evidence of mild volume overload Last echo showed EF 40-45% Holding meds while NPO (5) Cerebrovascular accident Current Visit: No Status: Acute Priority: High Onset Date: 10/14/14 Code (s): I63.9 - CEREBRAL INFARCTION, UNSPECIFIED SNOMED Code(s): 356525899 Comment: 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 Plan for TTE tomorrow and diuresis today. Plan discussed with his , his nurse, Dr. Fernandes, and the patient. Overall, his is interested in a G-tube if he is deemed to be a surgical candidate.
[2018-11-11] MEDS: TPN* 24 HR with D10W 1000 ML BAG* 1,000 ML, Amino Acid Infusion 10%* 850 ML, Sterile Wa... IV SCH ×12 (16:48)
[2018-11-11] MEDS ORDERED: Furosemide IV* 10 MG/ML 2 ML VIAL (20 MG) IV ONE (16:54)
[2018-11-11] MEDS: Latanoprost 0.005%* 2.5 ml BTL BOTH EYES SCH (21:47)
[2018-11-11] MEDS ORDERED: Morphine INJ* 2 MG/ML 1 ML SYRINGE (TWO MG - NEW SYRINGE VERSION) IV ONE (23:39)
[2018-11-11] MEDS: Acetaminophen SUPP* 650 MG SUPP PR PRN (23:49)
[2018-11-12 07:54] LABS: Hematocrit 27 % (42-52); Hemoglobin 9.1 g/dL (14.0-18.0); Mean Corpuscular HGB Conc 34 g/dL (31-36); Mean Corpuscular Hemoglobin 30 pg (27-31); Mean Corpuscular Volume 89 fL (80-94); Mean Platelet Volume 11.4 fL (7.4-10.4); Platelet Count 89 10^3/uL (150-450); Red Blood Count 3.05 10^6 /uL (4.18-5.48); Red Cell Distribution Width 18 % (10-15)
[2018-11-12 08:03] LABS: Calcium 8.8 mg/dL (8.6-10.3); EGFR African American 145.6 (>60); EGFR Non-African American 120.3 (>60); Magnesium 1.9 mg/dL (1.9-2.7); Phosphorus 2.7 mg/dL (2.5-5.0); Potassium 3.8 mmol/L (3.5-5.0)
[2018-11-12 08:18] LABS: ABS Lymphocytes 0.8 10^3/ul (1.0-4.8); ABS Monocytes 0.4 10^3/ul (0-0.8); ABS Neutrophils 1.8 10^3/ul (1.5-7.7); Lymphocyte % 26.5 %; Nucleated Red Blood Cells % 0.1
[2018-11-12 08:19] LABS: Polychromasia 1+
[2018-11-12] MEDS: DOXYcycline IV* 100 MG in NS 0.9% 250 ML* 250 ML IVPB SCH (10:34)
[2018-11-12] MEDS: Pantoprazole IV* 40 MG IV SCH (10:34)
[2018-11-12] MEDS: Enoxaparin(*) 100 MG/ML SYR SUBCUT SCH ×2 (10:36→23:25)
[2018-11-12] MEDS ORDERED: Furosemide IV* 10 MG/ML 2 ML VIAL (20 MG) IV ONE (12:45)
--- NOTE | 2018-11-12 12:50 | PN ---
Subjective Date of Service: 11/12/18 Interval History: No overnight events. His spent the night and thinks he may be improving and swallowing more of his secretions. Family History: Unchanged from Admission Social History: Unchanged from Admission Past Medical History: Unchanged from Admission Objective Active Medications: Acetaminophen (Tylenol Supp*) 650 mg MN Q4H PRN PRN Reason: TEMPERATURE > 100.4 Last Admin: 11/11/18 23:49 Dose: 650 mg Albuterol/Ipratropium (Duoneb (Albuterol 2.5 Mg/Ipratropium 0.5 Mg)) 1 neb INH [id number] AWAKE PRN PRN Reason: WHEEZING Enoxaparin Sodium (Lovenox(*)) 90 mg SUBCUT Q12H BROOK Last Admin: 11/12/18 10:36 Dose: 90 mg Doxycycline Hyclate 100 mg/ (Sodium Chloride) 250 mls @ 250 mls/hr IVPB Q12H BROOK Last Admin: 11/12/18 10:34 Dose: 250 mls/hr Dextrose 1,000 ml/ Amino Acids 850 ml/ Sterile Water 150 ml/Fat Emulsion Intravenous 500 ml/ Sodium Chloride 100 meq/Potassium Chloride 70 meq/Potassium Phosphate 15 mmole/Calcium Gluconate 15 meq/Magnesium Sulfate 20 meq/ Multivitamins 10 ml/ Trace Metals 1 ml/ Nutrition ( Parenteral) 2,613.1841 mls @ 108.942 mls/hr IV 1700 BROOK; Protocol Last Admin: 11/11/18 16:48 Dose: 108.942 mls/hr Latanoprost (Xalatan 0.005%*) 1 drop BOTH EYES BEDTIME BROOK; Protocol Last Admin: 11/11/18 21:47 Dose: 1 drop Ondansetron HCl (Zofran Inj*) 4 mg IV Q6H PRN PRN Reason: NAUSEA Pantoprazole Sodium (Protonix Iv*) 40 mg IV DAILY BROOK Last Admin: 11/12/18 10:34 Dose: 40 mg Vital Signs - 8 hr 11/12/18 08:13 Temperature 98.7 F Pulse Rate 79 Respiratory 20 Rate Blood Pressure 141/66 (mmHg) O2 Sat by Pulse 96 Oximetry Oxygen Devices in Use Now: Nasal Cannula Appearance: alert, breathing comfortably, occasional cough Eyes: No Scleral Icterus Ears/Nose/Mouth/Throat: NL Teeth, Lips, Gums, - - left facial droop Neck: NL Appearance and Movements; NL JVP Respiratory: - - few scattered rhonchi; mostly clear Cardiovascular: - - soft systolic murmur throughout Abdominal: NL Sounds; No Tenderness; No Distention Neurological: - - RUE strength 4/5, LUE and LLE 1/5 Result Diagrams: 11/12/18 07:22 11/12/18 07:22 Microbiology and Other Data: Microbiology 11/01/18 14:30 Aerobic Blood Culture - Preliminary Blood Venous No Growth Day 1 Anaerobic Blood Culture - Preliminary No Growth Day 1 11/01/18 14:20 Aerobic Blood Culture - Preliminary Blood Venous No Growth Day 1 Anaerobic Blood Culture - Preliminary No Growth Day 1 11/02/18 05:26 Legionella Urinary Antigen - Final Urine Negative Legionella Antigen Streptococcus pneumoniae Ag Screen - Final Negative S. pneumo Antigen 11/01/18 19:27 Gram Stain - Final Sputum 11/01/18 23:12 Nasal Screen MRSA (PCR) - Final Nasal Mrsa Not Detected Diagnostic Imaging: Patient Name: REYNALDO FREEMAN Medical Record#: [id number] Ordering Physician: Slade WAITE Acct.#: [id number] : 1940 Age: 78 Sex: M Location: [facility] Exam Date: 11/01/181920 ADM Status: ADM IN Order Information: CT CHEST/ABD/PEL W Accession Number: [id number] CPT: 28034 ADDENDUM Addendum created by Easton Uriostegui MD on 11/02/2018 12:56:53 AM EDT Recommend followup of the thoracic arch ectasia per institutional guidelines. Prior CT scan of the chest dated 06/19/2017 showed no change in the diameter the mid ascending aorta from today's study. Initial report created on 11/01/2018 9:52:39 PM EDT PROCEDURE INFORMATION: Exam: CT Chest With Contrast Exam date and time: 11/01/2018 8:42 PM Clinical history: 78 years old, male; Abdominal pain; Generalized; Other: Unknown; Additional info: Sepsis unknown origin ? pna vs intraabdominal path TECHNIQUE: Imaging protocol: Computed tomography of the chest with intravenous contrast. Radiation optimization: All CT scans at this facility use at least one of these dose optimization techniques: automated exposure control; mA and/or kV adjustment per patient size (includes targeted exams where dose is matched to clinical indication); or iterative reconstruction. Contrast material: OMNI 300; Contrast volume: 120 ml; Contrast route: IV; COMPARISON: C/A/P WO CT CHEST/ABD/PEL W/O 06/19/2017 2:04 PM FINDINGS: Limitations: Motion artifacts. Lungs: Consolidation of both lower lungs. The left lung being more involved than the right. Small lingular and right middle lung infiltrate. Pleural space: Small bilateral pleural effusions. No pneumothorax. Heart: Patient status post open heart surgery. Cardiac size is mildly enlarged. Severe coronary calcification. Mediastinum: No mediastinal mass. Small hiatal hernia. Aorta: Atheromatous changes involving the thoracic aorta. Ectasia of the ascending aorta. AP length of the mid ascending aorta is 4.2 cm. The AP length of the descending thoracic aorta at the level of the nohelia is 2.8 cm. Lymph nodes: No mediastinal adenopathy. Bones/joints: Degenerative changes of both shoulders. No overlapping rib fractures. Spondylotic changes of the thoracic spine. Soft tissues: Unremarkable. Stomach and bowel: Anterior confluent osteophyte formation from the cervical thoracic junction to the thoracolumbar junction. IMPRESSION: Bilateral lower lobe consolidation and small right middle lung and lingular infiltrates. The left lung being more involved than the right. This could represent a multilobar pneumonia. Small associated pleural effusions. Left greater than right. [facility] Patient Name:REYNALDO FREEMAN MR:[id number] : 1940 PROCEDURE INFORMATION: Exam: CT Abdomen and Pelvis With Contrast Exam date and time: 11/01/2018 8:42 PM Clinical history: 78 years old, male; Abdominal pain; Generalized; Other: Unknown; Additional info: Sepsis unknown origin ? pna vs intraabdominal path TECHNIQUE: Imaging protocol: Computed tomography of the abdomen and pelvis with intravenous contrast. Radiation optimization: All CT scans at this facility use at least one of these dose optimization techniques: automated exposure control; mA and/or kV adjustment per patient size (includes targeted exams where dose is matched to clinical indication); or iterative reconstruction. Contrast material: OMNI 300; Contrast volume: 120 ml; Contrast route: IV; COMPARISON: C/A/P WO CT CHEST/ABD/PEL W/O 06/19/2017 2:04 PM FINDINGS: Liver: Normal. No mass. Gallbladder and bile ducts: Calcified stone located in the neck of the gallbladder. This was seen on prior CT scan dated 06/19/2017 and is unchanged in position. Pancreas: Normal. No ductal dilation. Spleen: Small punctate splenic calcification. The spleen is of normal size. Adrenals: Normal. No mass. Kidneys and ureters: Left renal cortical cyst measuring 3.9 cm in length. This has a density of 22 Hounsfield units. No hydronephrosis or nephrolithiasis. Stomach and bowel: No bowel obstruction. Diverticular changes involving the colon. No evidence of acute diverticulitis. Appendix: No evidence of appendicitis. Intraperitoneal space: Unremarkable. No free air. No significant fluid collection. Vasculature: Calcification of the wall of the abdominal aorta and iliac arteries. No aneurysm. Lymph nodes: Unremarkable. No enlarged lymph nodes. Bladder: Unremarkable as visualized. Reproductive: Unremarkable as visualized. Bones/joints: Spondylotic changes lumbar spine. Laminectomy from L3 to L5. No evidence of fracture or malalignment. Several threaded screws coursing through the left hip. Soft tissues: Unremarkable. Other findings: Limitation: Artifact created by the right arm. IMPRESSION: 1. No acute findings. 2. Cholelithiasis. Assess/Plan/Problems-Billing Assessment: Mr. Freeman is an 78 yo M with PMH of multiple CVAs, CAD, afib, HTN, and MDS; who presented to the ED with report of AMS, vomiting and fever and was found to have pneumonia, possibly aspiration. - Patient Problems (1) MRSA pneumonia Current Visit: Yes Status: Acute Code(s): J15.212 - PNEUMONIA DUE TO METHICILLIN RESISTANT STAPHYLOCOCCUS AUREUS SNOMED Code(s): 241522613026905 Comment: doxycycline day 7 mrsa is not consistent with the history of aspiration; will add clinda for anaerobic coverage, which will also cover mrsa repeat CXR 11/10 looked more like pulmonary edema than pneumonia -- TTE is pending for today, and after gentle diuresis yesterday there seems to be some improvement (tte 2016 showed ef of 40%) failed swallow study Tuesday discussed PEG tube with his , as did Curtis from speech therapy; she would like to proceed with this, as would Yervant, and I have consulted with Dr. Watson would like to have Curtis re-evaluate him again tomorrow since he has had a good weekend and seems to be subjectively regaining some strength and alertness (2) Acute respiratory failure Current Visit: Yes Status: Acute Code(s): J96.00 - ACUTE RESPIRATORY FAILURE , UNSP W HYPOXIA OR HYPERCAPNIA SNOMED Code(s): 63055266 Comment: suspicious for aspiration, though again cxr yesterday looked like edema and will get TTE tomorrow and try gentle diuresis again today still on 4L O2 (3) Myelodysplasia (myelodysplastic syndrome) Current Visit: Yes Status: Acute Code(s): D46.9 - MYELODYSPLASTIC SYNDROME, UNSPECIFIED SNOMED Code(s): 986200945 Comment: counts are at baseline no signs of bleeding (4) Chronic systolic congestive heart failure Current Visit: Yes Status: Acute Code(s): I50.22 - CHRONIC SYSTOLIC ( CONGESTIVE) HEART FAILURE SNOMED Code(s): 920712584 Comment: with some evidence of mild volume overload Last echo showed EF 40-45% Holding meds while NPO (5) Cerebrovascular accident Current Visit: No Status: Acute Priority: High Onset Date: 10/14/14 Code (s): I63.9 - CEREBRAL INFARCTION, UNSPECIFIED SNOMED Code(s): 086137424 Comment: MRI rule out a new ACCOUNT [employer]NER event that may have contributed to his dysphagia Status and Disposition: Inpatient for acute respiratory failure and dysphagia. Plan for TTE and diuresis today.
[2018-11-12] MEDS: Clindamycin 300 MG IVPREMIX* 300 MG/50 ML SDV IV SCH ×2 (13:45→23:25)
[2018-11-12 17:16] LABS: Influenza A Molecular NEGATIVE (Negative); Influenza B Molecular NEGATIVE (Negative)
[2018-11-12] MEDS: TPN* 24 HR with D10W 1000 ML BAG* 1,000 ML, Amino Acid Infusion 10%* 850 ML, Sterile Wa... IV SCH ×12 (18:18)
--- NOTE | 2018-11-12 19:57 | CONS ---
GASTROENTEROLOGY CONSULT: DATE: 11/12/18 CONSULTING PHYSICIAN: Dr. Asha Young. REASON FOR CONSULTATION: Dysphagia with failed swallowing studies x3 over the last week. 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 He is MRSA positive. He has a history of coronary artery disease, atrial fibrillation, multiple strokes, chronic anticoagulation (now on Lovenox), and history of a quadruple bypass. He also has myelodysplastic syndrome, glaucoma, and homonymous hemianopsia. During this stay he has been evaluated for a new neurologic event and Dr Boyd finds no sure evidence for that so feels neuro recovery of swallowing is possible. He has not in general been having gastrointestinal problems through the years. Over 20 years ago, he had a colonoscopy for symptoms that were ultimately attributed to lactose intolerance. In the last several years, he has been residing at [facility], dealing with constipation and taking p.r.n. Zofran sporadically and also taking ferrous sulfate 325 twice a day. He had been on aspirin 81 mg and warfarin dose varies. He had been on omeprazole 20 mg. His assisted in the history and neither of them recall prior upper endoscopy. He has not had prior abdominal surgery. The EMR does not disclose any procedures other than a transesophageal echo in August 2014. He did have CT abdomen and pelvis in December [address] Yepez, showing no acute finding and a nonobstructing right renal calculus and nonobstructing cholelithiasis along with some lytic lesions in the lower thoracic spine that were stable. PAST MEDICAL HISTORY: 1. Prostate cancer, status post prostatectomy. 2. Spinal stenosis. 3. Status post quadruple bypass. 4. Atrial fibrillation. 5. Multiple CVAs with left-sided weakness. 6. Myelodysplastic syndrome. MEDICATIONS: At this time as an inpatient, he is on clindamycin IV; pantoprazole daily IV; Lovenox 90 mg q.12 hours; and TPN was started 5 days ago. SOCIAL HISTORY: He is to his [place], living in their original home, [address] [place] [address] ([phone]). He also has a daughter in town. REVIEW OF SYSTEMS: No history of recent PA, arrhythmia, syncope, seizure, hepatitis, jaundice, bleeding disorder. His myelodysplastic syndrome is longstanding and stable with platelets in the upper 80s. HOSPITAL COURSE: Dr. Pisano has weighed in and does not feel there has been an acute neurologic event. Improvement is possible. EXAM: He is a chronically ill-appearing man, in bed, interviewed with his present. HEENT exam is unremarkable apart from sweaty skin. He has trouble with his oral secretions. He is spitting into a cup. He has no adenopathy. Breath sounds are diminished and difficult to hear. He has a well-healed sternotomy scar. There is a right upper quadrant scar appearing consistent with post thoracotomy drain site. The abdomen is protuberant, symmetric with normal bowel sounds, firm, but without tenderness. Rectal: Deferred. Extremities show 1+ edema, intact popliteal pulses. Neuro exam is per Dr. Pisano. He is able to mumble accurate responses. His assists in the history. LABS: Today, hemoglobin 9.1, hematocrit 27, white count 3.0, platelets 89. INR 1.28. Sodium 136, potassium 3.8, BUN 16, creatinine 0.64. Temperature normal in the last 5 days. Swallowing function study - reviewed. IMPRESSION: This 78-year-old man status post numerous cerebrovascular accidents , had a presentation consistent with aspiration pneumonia. He had been in the emergency room and his said that following that visit he was able to swallow water and juice readily and had some scrambled eggs that evening. Nonetheless, the next day, he was found on the floor febrile and with x-rays consistent with pneumonia. Dr. Pisano has not found any progression as regard to permanent fixed deficit. Nonetheless, it seems likely that his deterioration in swallowing is likely to be persistent or at least not keep up with his hydration and nutritional needs. A PEG tube seems reasonable. He is a little bit obese, but landmarks should be intact. This was discussed with his . She is concerned about having a final opinion from Cardiology and Neurology and the procedure may take place in 48 to 72 hours. The risk was reviewed. [id number]/[facility] #: [id number] MTDD
[2018-11-12] MEDS: Latanoprost 0.005%* 2.5 ml BTL BOTH EYES SCH (23:24)
[2018-11-13] MEDS: Clindamycin 300 MG IVPREMIX* 300 MG/50 ML SDV IV SCH ×3 (04:19→22:40)
[2018-11-13 06:49] LABS: Calcium 8.8 mg/dL (8.6-10.3); Potassium 4.2 mmol/L (3.5-5.0)
[2018-11-13 06:53] LABS: Hematocrit 29 % (42-52); Hemoglobin 9.7 g/dL (14.0-18.0); Mean Corpuscular HGB Conc 33 g/dL (31-36); Mean Corpuscular Hemoglobin 30 pg (27-31); Mean Corpuscular Volume 89 fL (80-94); Mean Platelet Volume 11.3 fL (7.4-10.4); Platelet Count 90 10^3/uL (150-450); Red Blood Count 3.26 10^6 /uL (4.18-5.48); Red Cell Distribution Width 18 % (10-15); White Blood Count 3.2 10^3/uL (3.5-10.8)
[2018-11-13 06:55] LABS: BUN/Creatinine Ratio 28.8 (8-20); EGFR African American 140.5 (>60); EGFR Non-African American 116.1 (>60); Phosphorus 3.6 mg/dL (2.5-5.0)
[2018-11-13 08:16] LABS: ABS Lymphocytes 0.8 10^3/ul (1.0-4.8); ABS Monocytes 0.5 10^3/ul (0-0.8); ABS Neutrophils 1.9 10^3/ul (1.5-7.7); Eosinophil % 0.1 %; Lymphocyte % 25.8 %; Nucleated Red Blood Cells % 0.1
[2018-11-13] MEDS: Pantoprazole IV* 40 MG IV SCH (09:12)
[2018-11-13] MEDS ORDERED: Perflutren Lipid Microsphere* 3 ML VIAL ONE (09:46)
--- NOTE | 2018-11-13 12:19 | ECHO ---
*[facility]* [place] [address] Fax #: [phone] Transthoracic Echocardiogram Patient: Jo-Ann Cramer : 1940 Study Date: 11/13/2018 Age: 78 Gender: M HR: 88 bpm Height: 60 in /152.4 cm BSA: 1.91 m^2 Weight: 210.6 lb /95.7 kg BMI: 41.2 kg/m^2 *[employer]: * Kayleigh Dubois [facility] *Referring Physician: * Asha Young *Reading Physician: * Gruvinder Ulrich MD Indications: Congestive Heart Failure. History: Myelodysplastic syndrome. Coronary artery disease. Aortic stenosis. Cerebrovascular accident. Risk factors: Hypertension. Dyslipidemia. Labs, prior tests, procedures, and surgery: Coronary artery bypass grafting. Conclusions Summary: - Left ventricle: Systolic function is moderately to severely reduced. The estimated ejection fraction is 25-30%. Multiple regional wall motion abnormalities - Right ventricle: Systolic function is normal. - Mitral valve: There is no evidence of stenosis. There is trace regurgitation. - Aortic valve: The findings are consistent with moderate stenosis. There is mild regurgitation. The mean systolic gradient is 15.0 mm Hg. The valve area by the velocity-time integral method is 0.90 cm^2. The valve area by the peak velocity method is 1.30 cm^2. - Tricuspid valve: There is trace regurgitation. - Ascending aorta: The ascending aorta is mildly dilated. - Pericardium, extracardiac: There is no significant pericardial effusion. - Pulmonary arteries: Systolic pressure is within the normal range. - Compared to study of 05/23/16, the left ventricle function and degree of are worse. Study data: Transthoracic echocardiogram. Procedure: Transthoracic echocardiography was performed. Image quality was suboptimal. Intravenous Definity , 2 mlswas administered. Complete 2D, spectral Doppler, and color flow Doppler. Location: Bedside. Patient status: Inpatient. Patient room number: 449 02. Rhythm: Normal sinus rhythm. Findings Left ventricle: The cavity size is normal. Wall thickness is mildly increased. Systolic function is moderately to severely reduced. The estimated ejection fraction is 25-30%. Multiple regional wall motion abnormalities Doppler parameters are consistent with abnormal left ventricular relaxation (grade 1 diastolic dysfunction). Right ventricle: The cavity size is normal. Systolic function is normal. Left atrium: The atrium is mildly to moderately dilated. Right atrium: The atrium is mildly to moderately dilated. Mitral valve: Not well visualized. The Mitral valve annulus appears calcified. The leaflets are normal thickness. There is no evidence of stenosis. There is trace regurgitation. Aortic valve: The valve is trileaflet. The leaflets are moderately thickened. Valve mobility is restricted. The findings are consistent with moderate stenosis. There is mild regurgitation. Tricuspid valve: The leaflets are normal thickness. There is no evidence of stenosis. There is trace regurgitation. Pulmonic valve: The leaflets are normal thickness. There is no evidence of stenosis. There is no significant regurgitation. Aorta: Aortic root: The aortic root is appears normal. Ascending aorta: The ascending aorta is mildly dilated. Aortic arch: The aortic arch is poorly visualized. Pericardium: There is no significant pericardial effusion. Pulmonary arteries: Not well visualized. Systolic pressure is within the normal range. Systemic veins: Inferior vena cava: Not well visualized. Measurements Left ventricle Value Ref Aortic valve continued Value Ref DANNY, LAX 4.9 cm 4.2 - 5.8 VTI, S 54.0 cm ----- ESD, LAX (H) 4.9 cm 2.5 - 4.0 Mean grad, S 15.0 mm Hg ----- FS, LAX (L) 1 % 25 - 43 Peak grad, S 25.0 mm Hg ----- PW, ED, LAX (H) 1.3 cm 0.6 - 1.0 LVOT/AV, VTI ratio 0.4 ----- EF (L) 2 % 52 - 72 KAYLEE, VTI 0.90 cm^2 ----- E', lat andrés, TDI (L) 6.8 cm/sec >=10.0 KAYLEE, Vmax 1.30 cm^2 - ---- E/e', lat andrés, 7 AR peak v 3.39 m/sec ---- - TDI AR PHT 395 ms ----- E', med andrés, TDI (L) 4.4 cm/sec >=7.0 AR peak grad 46 mm Hg - ---- E/e', med andrés, 12 TDI Mitral valve Value Ref E', avg, TDI 5.6 cm/sec Peak E 0.51 m/sec ---- - E/e', avg, TDI 9 <=14 Peak A 0.9 m/sec - ---- Decel time 190 ms ----- LVOT Value Ref PHT 49 ms ----- Diam, S 2.00 cm Mean grad, D 1.0 mm Hg ----- Peak cheko, S 1 m/sec Peak grad, D 3.0 mm Hg ----- VTI, S 19.0 cm Peak E/A ratio 0.6 ----- Peak grad, S 4 mm Hg MVA, PHT 4.5 cm^2 ----- Mean grad, S 2 mm Hg Pulmonic valve Value Ref Ventricular septum Value Ref Peak v, S 0.8 m/sec ----- IVS, ED (H) 1.2 cm 0.6 - 1.0 Peak grad, S 3.0 mm Hg ----- Right ventricle Value Ref Tricuspid valve Value Ref DANNY, LAX 2.6 cm TR peak v 2.33 m/sec <=2.8 Pressure, S 30 mm Hg Peak RV-RA grad, S 22 mm Hg ----- Left atrium Value Ref Aortic root Value Ref AP dim, ES (H) 4.30 cm 3.00 - Root diam 3.1 cm <4.1 4.00 ML dim, A4C 4.7 cm Ascending aorta Value Ref SI dim, A4C 5.7 cm AAo AP diam, S 3.6 cm ----- Vol/bsa, ES, A/L (H) 41 ml/m^2 16 - 34 Decending aorta Value Ref Right atrium Value Ref Jenny peak cheko 0.48 m/sec ----- SI dim, ES (H) 6.0 cm 3.4 - 5.3 ML dim, ES, A4C 3.9 cm 2.6 - 4.4 Pulmonary artery Value Ref Estimated RAP 8 mm Hg Pressure, S 27.0 mm Hg ----- Aortic valve Value Ref Andrés diam, ED 2.3 cm Peak v, S 2.5 m/sec Legend: (L) and (H) galilea values outside specified reference range. Prepared and electronically signed by Gurvinder Ulrich MD 11/13/2018 12:19
[2018-11-13] MEDS: Enoxaparin(*) 100 MG/ML SYR SUBCUT SCH ×2 (12:34→22:40)
--- NOTE | 2018-11-13 14:36 | PN ---
Subjective Date of Service: 11/13/18 Interval History: Seen with at bedside. She feels he is intermittently more confused today, waxing and waning, intermittently more sleepy Pt does not have similar complaints at this time Family History: Unchanged from Admission Social History: Unchanged from Admission Past Medical History: Unchanged from Admission Objective Active Medications: Acetaminophen (Tylenol Supp*) 650 mg CA Q4H PRN PRN Reason: TEMPERATURE > 100.4 Last Admin: 11/11/18 23:49 Dose: 650 mg Albuterol/Ipratropium (Duoneb (Albuterol 2.5 Mg/Ipratropium 0.5 Mg)) 1 neb INH [id number] AWAKE PRN PRN Reason: WHEEZING Enoxaparin Sodium (Lovenox(*)) 90 mg SUBCUT Q12H BROOK Last Admin: 11/13/18 12:34 Dose: 90 mg Dextrose 1,000 ml/ Amino Acids 850 ml/ Sterile Water 150 ml/Fat Emulsion Intravenous 500 ml/ Sodium Chloride 100 meq/Potassium Chloride 70 meq/Potassium Phosphate 15 mmole/Calcium Gluconate 15 meq/Magnesium Sulfate 20 meq/ Multivitamins 10 ml/ Trace Metals 1 ml/ Nutrition ( Parenteral) 2,613.1841 mls @ 108.942 mls/hr IV 1700 BROOK; Protocol Last Admin: 11/12/18 18:18 Dose: 108.942 mls/hr Clindamycin HCl/Dextrose (Cleocin 300 Mg Ivpemix(*)) 300 mg in 50 mls @ 200 mls /hr IV Q8H BROOK Last Admin: 11/13/18 12:34 Dose: 200 mls/hr Latanoprost (Xalatan 0.005%*) 1 drop BOTH EYES BEDTIME BROOK; Protocol Last Admin: 11/12/18 23:24 Dose: 1 drop Ondansetron HCl (Zofran Inj*) 4 mg IV Q6H PRN PRN Reason: NAUSEA Pantoprazole Sodium (Protonix Iv*) 40 mg IV DAILY BROOK Last Admin: 11/13/18 09:12 Dose: 40 mg Vital Signs - 8 hr 11/13/18 11/13/18 08:00 08:05 Temperature 97.0 F Pulse Rate 87 Respiratory 20 20 Rate Blood Pressure 116/56 (mmHg) O2 Sat by Pulse 99 99 Oximetry Oxygen Devices in Use Now: Nasal Cannula Appearance: sitting in chair, NAD Eyes: No Scleral Icterus, PERRLA Ears/Nose/Mouth/Throat: Clear Oropharnyx Neck: NL Appearance and Movements; NL JVP Respiratory: Symmetrical Chest Expansion and Respiratory Effort, - - rhonchi right base up 1/2 Cardiovascular: RRR, - - 2/6 JAZZY RUSB Abdominal: NL Sounds; No Tenderness; No Distention Lymphatic: No Cervical Adenopathy Neurological: - - AOx2 to self and location, LUE/LLE 1/ strength Result Diagrams: 11/13/18 06:13 11/13/18 06:13 Microbiology and Other Data: Microbiology 11/01/18 14:30 Aerobic Blood Culture - Preliminary Blood Venous No Growth Day 1 Anaerobic Blood Culture - Preliminary No Growth Day 1 11/01/18 14:20 Aerobic Blood Culture - Preliminary Blood Venous No Growth Day 1 Anaerobic Blood Culture - Preliminary No Growth Day 1 11/02/18 05:26 Legionella Urinary Antigen - Final Urine Negative Legionella Antigen Streptococcus pneumoniae Ag Screen - Final Negative S. 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 Prior CT scan of the chest dated 06/19/2017 showed no change in the diameter the mid ascending aorta from today's study. Initial report created on 11/01/2018 9:52:39 PM EDT PROCEDURE INFORMATION: Exam: CT Chest With Contrast Exam date and time: 11/01/2018 8:42 PM Clinical history: 78 years old, male; Abdominal pain; Generalized; Other: Unknown; Additional info: Sepsis unknown origin ? pna vs intraabdominal path TECHNIQUE: Imaging protocol: Computed tomography of the chest with intravenous contrast. Radiation optimization: All CT scans at this facility use at least one of these dose optimization techniques: automated exposure control; mA and/or kV adjustment per patient size (includes targeted exams where dose is matched to clinical indication); or iterative reconstruction. Contrast material: OMNI 300; Contrast volume: 120 ml; Contrast route: IV; COMPARISON: C/A/P WO CT CHEST/ABD/PEL W/O 06/19/2017 2:04 PM FINDINGS: Limitations: Motion artifacts. Lungs: Consolidation of both lower lungs. The left lung being more involved than the right. Small lingular and right middle lung infiltrate. Pleural space: Small bilateral pleural effusions. No pneumothorax. Heart: Patient status post open heart surgery. Cardiac size is mildly enlarged. Severe coronary calcification. Mediastinum: No mediastinal mass. Small hiatal hernia. Aorta: Atheromatous changes involving the thoracic aorta. Ectasia of the ascending aorta. AP length of the mid ascending aorta is 4.2 cm. The AP length of the descending thoracic aorta at the level of the nohelia is 2.8 cm. Lymph nodes: No mediastinal adenopathy. Bones/joints: Degenerative changes of both shoulders. No overlapping rib fractures. Spondylotic changes of the thoracic spine. Soft tissues: Unremarkable. Stomach and bowel: Anterior confluent osteophyte formation from the cervical thoracic junction to the thoracolumbar junction. IMPRESSION: Bilateral lower lobe consolidation and small right middle lung and lingular infiltrates. The left lung being more involved than the right. This could represent a multilobar pneumonia. Small associated pleural effusions. Left greater than right. [facility] Patient Name:REYNALDO CRAMER MR:[id number] : 1940 PROCEDURE INFORMATION: Exam: CT Abdomen and Pelvis With Contrast Exam date and time: 11/01/2018 8:42 PM Clinical history: 78 years old, male; Abdominal pain; Generalized; Other: Unknown; Additional info: Sepsis unknown origin ? pna vs intraabdominal path TECHNIQUE: Imaging protocol: Computed tomography of the abdomen and pelvis with intravenous contrast. Radiation optimization: All CT scans at this facility use at least one of these dose optimization techniques: automated exposure control; mA and/or kV adjustment per patient size (includes targeted exams where dose is matched to clinical indication); or iterative reconstruction. Contrast material: OMNI 300; Contrast volume: 120 ml; Contrast route: IV; COMPARISON: C/A/P WO CT CHEST/ABD/PEL W/O 06/19/2017 2:04 PM FINDINGS: Liver: Normal. No mass. Gallbladder and bile ducts: Calcified stone located in the neck of the gallbladder. This was seen on prior CT scan dated 06/19/2017 and is unchanged in position. Pancreas: Normal. No ductal dilation. Spleen: Small punctate splenic calcification. The spleen is of normal size. Adrenals: Normal. No mass. Kidneys and ureters: Left renal cortical cyst measuring 3.9 cm in length. This has a density of 22 Hounsfield units. No hydronephrosis or nephrolithiasis. Stomach and bowel: No bowel obstruction. Diverticular changes involving the colon. No evidence of acute diverticulitis. Appendix: No evidence of appendicitis. Intraperitoneal space: Unremarkable. No free air. No significant fluid collection. Vasculature: Calcification of the wall of the abdominal aorta and iliac arteries. No aneurysm. Lymph nodes: Unremarkable. No enlarged lymph nodes. Bladder: Unremarkable as visualized. Reproductive: Unremarkable as visualized. Bones/joints: Spondylotic changes lumbar spine. Laminectomy from L3 to L5. No evidence of fracture or malalignment. Several threaded screws coursing through the left hip. Soft tissues: Unremarkable. Other findings: Limitation: Artifact created by the right arm. IMPRESSION: 1. No acute findings. 2. Cholelithiasis. Assess/Plan/Problems-Billing Assessment: Mr. Cramer is an 78 yo M with PMH of multiple CVAs, CAD, afib, HTN, and MDS; who presented to the ED with report of AMS, vomiting and fever and was found to have suspected aspiration pneumonia - Patient Problems (1) Acute respiratory failure Comment: suspicious for aspiration, though again cxr 11/10 looked like edema TTE with worsending sCHF (25-30% LVEF) and worsening Lasix 20mg IV again 11/13 On 2L O2 (improved) (2) Chronic systolic congestive heart failure Comment: with some evidence of mild volume overload worsening sCHF additional lasix as indicated above Holding meds while NPO (3) Dysphagia Comment: - Had an episode of aspiration on 11/03/18, suspect aspiration is the etiology for this admission overall - Failed swallow eval x2, discussed with CONCESSION SUPERVISOR - PPN initiated as short term solution - Suspect worsening swallow fxn in setting of multiple CVAs and acute illness - hopeful that when acute infection resolves he will be able to resume previous level of swallow fxn. With this in mind pt and would like to pursue PEG. - rpeat TTE with worsening LVEF and put him at least moderate risk which likely underestimates given multiple comorbidities and debility -Findings from repeat swallow eval today are pending - PEG planned Tuesday. 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
[2018-11-13] MEDS ORDERED: Furosemide IV* 10 MG/ML 2 ML VIAL (20 MG) IV SLOW PU ONE (14:37)
[2018-11-13] MEDS: TPN* 24 HR with D10W 1000 ML BAG* 1,000 ML, Amino Acid Infusion 10%* 850 ML, Sterile Wa... IV SCH ×12 (17:13)
[2018-11-13] MEDS: Latanoprost 0.005%* 2.5 ml BTL BOTH EYES SCH (22:40)
[2018-11-14] MEDS: Clindamycin 300 MG IVPREMIX* 300 MG/50 ML SDV IV SCH ×3 (04:40→21:56)
[2018-11-14] MEDS: Pantoprazole IV* 40 MG IV SCH (08:12)
[2018-11-14 08:52] LABS: Albumin 3.5 g/dL (3.2-5.2); BUN/Creatinine Ratio 29.2 (8-20); Calcium 9.2 mg/dL (8.6-10.3); EGFR African American 127.1 (>60); Globulin 3.5 g/dL (2-4); Magnesium 2.1 mg/dL (1.9-2.7); Phosphorus 3.6 mg/dL (2.5-5.0); Potassium 4.4 mmol/L (3.5-5.0); Total Bilirubin 0.6 mg/dL (0.2-1.0)
[2018-11-14] MEDS: Enoxaparin(*) 100 MG/ML SYR SUBCUT SCH (11:11)
[2018-11-14] MEDS: TPN* 24 HR with D10W 1000 ML BAG* 1,000 ML, Amino Acid Infusion 10%* 850 ML, Sterile Wa... IV SCH ×12 (16:41)
--- NOTE | 2018-11-14 17:20 | PN ---
Subjective Date of Service: 11/14/18 Interval History: Feels better today. feels he is more alert. Denies SOB Both interested in proceeding with PEG tomorrow Results of TTE reviewed Family History: Unchanged from Admission Social History: Unchanged from Admission Past Medical History: Unchanged from Admission Objective Active Medications: Acetaminophen (Tylenol Supp*) 650 mg IN Q4H PRN PRN Reason: TEMPERATURE > 100.4 Last Admin: 11/11/18 23:49 Dose: 650 mg Albuterol/Ipratropium (Duoneb (Albuterol 2.5 Mg/Ipratropium 0.5 Mg)) 1 neb INH [id number] AWAKE PRN PRN Reason: WHEEZING Dextrose 1,000 ml/ Amino Acids 850 ml/ Sterile Water 150 ml/Fat Emulsion Intravenous 500 ml/ Sodium Chloride 100 meq/Potassium Chloride 70 meq/Potassium Phosphate 15 mmole/Calcium Gluconate 15 meq/Magnesium Sulfate 20 meq/ Multivitamins 10 ml/ Trace Metals 1 ml/ Nutrition ( Parenteral) 2,613.1841 mls @ 108.942 mls/hr IV 1700 BROOK; Protocol Last Admin: 11/14/18 16:41 Dose: 108.942 mls/hr Clindamycin HCl/Dextrose (Cleocin 300 Mg Ivpemix(*)) 300 mg in 50 mls @ 200 mls /hr IV Q8H BROOK Last Admin: 11/14/18 12:56 Dose: 200 mls/hr Latanoprost (Xalatan 0.005%*) 1 drop BOTH EYES BEDTIME BROOK; Protocol Last Admin: 11/13/18 22:40 Dose: 1 drop Ondansetron HCl (Zofran Inj*) 4 mg IV Q6H PRN PRN Reason: NAUSEA Pantoprazole Sodium (Protonix Iv*) 40 mg IV DAILY BROOK Last Admin: 11/14/18 08:12 Dose: 40 mg Vital Signs - 8 hr 11/14/18 11/14/18 12:00 15:51 Temperature 97.8 F 98.5 F Pulse Rate 82 86 Respiratory 24 18 Rate Blood Pressure 116/56 120/60 (mmHg) O2 Sat by Pulse 100 100 Oximetry Oxygen Devices in Use Now: Nasal Cannula Appearance: NAD Eyes: No Scleral Icterus, PERRLA Ears/Nose/Mouth/Throat: Mucous Membranes Moist Neck: NL Appearance and Movements; NL JVP, Trachea Midline Respiratory: Symmetrical Chest Expansion and Respiratory Effort, Clear to Auscultation Cardiovascular: RRR Abdominal: NL Sounds; No Tenderness; No Distention, No Hepatosplenomegaly Lymphatic: No Cervical Adenopathy Extremities: No Edema Skin: No Rash or Ulcers Neurological: Alert and Oriented x 3, - - left sided weakness Result Diagrams: 11/13/18 06:13 11/14/18 08:11 Microbiology and Other Data: Microbiology 11/01/18 14:30 Aerobic Blood Culture - Preliminary Blood Venous No Growth Day 1 Anaerobic Blood Culture - Preliminary No Growth Day 1 11/01/18 14:20 Aerobic Blood Culture - Preliminary Blood Venous No Growth Day 1 Anaerobic Blood Culture - Preliminary No Growth Day 1 11/02/18 05:26 Legionella Urinary Antigen - Final Urine Negative Legionella Antigen Streptococcus pneumoniae Ag Screen - Final Negative S. 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 Prior CT scan of the chest dated 06/19/2017 showed no change in the diameter the mid ascending aorta from today's study. Initial report created on 11/01/2018 9:52:39 PM EDT PROCEDURE INFORMATION: Exam: CT Chest With Contrast Exam date and time: 11/01/2018 8:42 PM Clinical history: 78 years old, male; Abdominal pain; Generalized; Other: Unknown; Additional info: Sepsis unknown origin ? pna vs intraabdominal path TECHNIQUE: Imaging protocol: Computed tomography of the chest with intravenous contrast. Radiation optimization: All CT scans at this facility use at least one of these dose optimization techniques: automated exposure control; mA and/or kV adjustment per patient size (includes targeted exams where dose is matched to clinical indication); or iterative reconstruction. Contrast material: OMNI 300; Contrast volume: 120 ml; Contrast route: IV; COMPARISON: C/A/P WO CT CHEST/ABD/PEL W/O 06/19/2017 2:04 PM FINDINGS: Limitations: Motion artifacts. Lungs: Consolidation of both lower lungs. The left lung being more involved than the right. Small lingular and right middle lung infiltrate. Pleural space: Small bilateral pleural effusions. No pneumothorax. Heart: Patient status post open heart surgery. Cardiac size is mildly enlarged. Severe coronary calcification. Mediastinum: No mediastinal mass. Small hiatal hernia. Aorta: Atheromatous changes involving the thoracic aorta. Ectasia of the ascending aorta. AP length of the mid ascending aorta is 4.2 cm. The AP length of the descending thoracic aorta at the level of the nohelia is 2.8 cm. Lymph nodes: No mediastinal adenopathy. Bones/joints: Degenerative changes of both shoulders. No overlapping rib fractures. Spondylotic changes of the thoracic spine. Soft tissues: Unremarkable. Stomach and bowel: Anterior confluent osteophyte formation from the cervical thoracic junction to the thoracolumbar junction. IMPRESSION: Bilateral lower lobe consolidation and small right middle lung and lingular infiltrates. The left lung being more involved than the right. This could represent a multilobar pneumonia. Small associated pleural effusions. Left greater than right. [facility] Patient Name:REYNALDO CRAMER MR:[id number] : 1940 PROCEDURE INFORMATION: Exam: CT Abdomen and Pelvis With Contrast Exam date and time: 11/01/2018 8:42 PM Clinical history: 78 years old, male; Abdominal pain; Generalized; Other: Unknown; Additional info: Sepsis unknown origin ? pna vs intraabdominal path TECHNIQUE: Imaging protocol: Computed tomography of the abdomen and pelvis with intravenous contrast. Radiation optimization: All CT scans at this facility use at least one of these dose optimization techniques: automated exposure control; mA and/or kV adjustment per patient size (includes targeted exams where dose is matched to clinical indication); or iterative reconstruction. Contrast material: OMNI 300; Contrast volume: 120 ml; Contrast route: IV; COMPARISON: C/A/P WO CT CHEST/ABD/PEL W/O 06/19/2017 2:04 PM FINDINGS: Liver: Normal. No mass. Gallbladder and bile ducts: Calcified stone located in the neck of the gallbladder. This was seen on prior CT scan dated 06/19/2017 and is unchanged in position. Pancreas: Normal. No ductal dilation. Spleen: Small punctate splenic calcification. The spleen is of normal size. Adrenals: Normal. No mass. Kidneys and ureters: Left renal cortical cyst measuring 3.9 cm in length. This has a density of 22 Hounsfield units. No hydronephrosis or nephrolithiasis. Stomach and bowel: No bowel obstruction. Diverticular changes involving the colon. No evidence of acute diverticulitis. Appendix: No evidence of appendicitis. Intraperitoneal space: Unremarkable. No free air. No significant fluid collection. Vasculature: Calcification of the wall of the abdominal aorta and iliac arteries. No aneurysm. Lymph nodes: Unremarkable. No enlarged lymph nodes. Bladder: Unremarkable as visualized. Reproductive: Unremarkable as visualized. Bones/joints: Spondylotic changes lumbar spine. Laminectomy from L3 to L5. No evidence of fracture or malalignment. Several threaded screws coursing through the left hip. Soft tissues: Unremarkable. Other findings: Limitation: Artifact created by the right arm. IMPRESSION: 1. No acute findings. 2. Cholelithiasis. Assess/Plan/Problems-Billing Assessment: Mr. Cramer is an 78 yo M with PMH of multiple CVAs, CAD, afib, HTN, and MDS; who presented to the ED with report of AMS, vomiting and fever and was found to have suspected aspiration pneumonia - Patient Problems (1) Acute respiratory failure Comment: suspicious for aspiration, though again cxr 11/10 looked like edema TTE with worsending sCHF (25-30% LVEF) and worsening Lasix 20mg IV again 11/13 On 2L O2 (improved) (2) Chronic systolic congestive heart failure Comment: with some evidence of mild volume overload worsening sCHF additional lasix as indicated above Holding meds while NPO (3) Dysphagia Comment: - Had an episode of aspiration on 11/03/18, suspect aspiration is the etiology for this admission overall - Failed swallow eval x2, discussed with FINE GRADER - PPN initiated as short term solution - Suspect worsening swallow fxn in setting of multiple CVAs and acute illness - hopeful that when acute infection resolves he will be able to resume previous level of swallow fxn. With this in mind pt and would like to pursue PEG. - rpeat TTE with worsening LVEF and put him at least moderate risk which likely underestimates given multiple comorbidities and debility. -Currently he is medically optimized, no additional testing indicated prior to PEG placement. Lovenox held thsi evning and in AM -Findings from repeat swallow eval today are pending - PEG planned Tuesday. 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
--- NOTE | 2018-11-14 18:47 | PN ---
Progress Note - Progress Note Date of Service: 11/14/18 Note: Stopped by to see this patient and his in light of the contradictory documentation in his chart. The patient signed a living will in 2010 that specified no interventions other than comfort if he had irreversible condition, requesting comfort measures only, and also the MOLST form signed as recently as 11/01/18 specifying no feeding tube, and the palliative consultation by Dr. Mccord quoting the patient and 's wishes to REFUSE PEG placement. The patient has very severe dysphagia and this is likely to cause repeated aspiration pneumonias despite PEG placement. Since the earlier advance directives and the conversation with Dr. Mccord, the patient and his have decided to pursue PEG placement after all. I discussed with the patient and his the rationales pro and con feeding tubes. The literature on vascular dementia with dysphagia does not support PEG tubes as life-enhancing or life- prolonging. However, the and patient are now determined to pursue this option so that the patient will not "starve" and I can say that at this point they are at least making an educated decision. I also shared this information with Dr. Watson, who will go forward with the procedure tomorrow.
[2018-11-14] MEDS: Latanoprost 0.005%* 2.5 ml BTL BOTH EYES SCH (22:14)
[2018-11-15] MEDS: Clindamycin 300 MG IVPREMIX* 300 MG/50 ML SDV IV SCH ×3 (05:10→20:22)
[2018-11-15 07:32] LABS: Hematocrit 32 % (42-52); Hemoglobin 10.5 g/dL (14.0-18.0); Mean Corpuscular HGB Conc 33 g/dL (31-36); Mean Corpuscular Hemoglobin 30 pg (27-31); Mean Corpuscular Volume 90 fL (80-94); Mean Platelet Volume 11.5 fL (7.4-10.4); Platelet Count 86 10^3/uL (150-450); Red Blood Count 3.55 10^6 /uL (4.18-5.48); Red Cell Distribution Width 18 % (10-15); White Blood Count 2.3 10^3/uL (3.5-10.8)
[2018-11-15 07:49] LABS: BUN/Creatinine Ratio 29.6 (8-20); Calcium 9.4 mg/dL (8.6-10.3); EGFR African American 129.2 (>60); EGFR Non-African American 106.7 (>60); Potassium 4.4 mmol/L (3.5-5.0)
[2018-11-15 08:27] LABS: ABS Lymphocytes 0.7 10^3/ul (1.0-4.8); ABS Monocytes 0.5 10^3/ul (0-0.8); ABS Neutrophils 1.1 10^3/ul (1.5-7.7); Eosinophil % 0.2 %; Lymphocyte % 30.1 %; Nucleated Red Blood Cells % 0.2
[2018-11-15] MEDS: Pantoprazole IV* 40 MG IV SCH (09:01)
[2018-11-15] MEDS ORDERED: fentaNYL* 50 MCG/ML 2 ML VIAL (100 MCG VIAL) ONE (15:56)
[2018-11-15] MEDS ORDERED: Midazolam* 1 MG/ML 10 ML VIAL (10 MG) ONE (15:57)
--- NOTE | 2018-11-15 17:45 | PN ---
Subjective Date of Service: 11/15/18 Interval History: seen with at bedside prior to PEG placement feels well Both feel he is coughing and choking less Family History: Unchanged from Admission Social History: Unchanged from Admission Past Medical History: Unchanged from Admission Objective Active Medications: Acetaminophen (Tylenol Supp*) 650 mg SD Q4H PRN PRN Reason: TEMPERATURE > 100.4 Last Admin: 11/11/18 23:49 Dose: 650 mg Albuterol/Ipratropium (Duoneb (Albuterol 2.5 Mg/Ipratropium 0.5 Mg)) 1 neb INH RT.[id number] AWAKE PRN PRN Reason: WHEEZING Dextrose 1,000 ml/ Amino Acids 850 ml/ Sterile Water 150 ml/Fat Emulsion Intravenous 500 ml/ Sodium Chloride 100 meq/Potassium Chloride 70 meq/Potassium Phosphate 15 mmole/Calcium Gluconate 15 meq/Magnesium Sulfate 20 meq/ Multivitamins 10 ml/ Trace Metals 1 ml/ Nutrition ( Parenteral) 2,613.1841 mls @ 108.942 mls/hr IV 1700 BROOK; Protocol Last Admin: 11/14/18 16:41 Dose: 108.942 mls/hr Clindamycin HCl/Dextrose (Cleocin 300 Mg Ivpemix(*)) 300 mg in 50 mls @ 200 mls /hr IV Q8H BROOK Last Admin: 11/15/18 13:12 Dose: 200 mls/hr Latanoprost (Xalatan 0.005%*) 1 drop BOTH EYES BEDTIME BROOK; Protocol Last Admin: 11/14/18 22:14 Dose: 1 drop Ondansetron HCl (Zofran Inj*) 4 mg IV Q6H PRN PRN Reason: NAUSEA Pantoprazole Sodium (Protonix Iv*) 40 mg IV DAILY BROOK Last Admin: 11/15/18 09:01 Dose: 40 mg Vital Signs - 8 hr 11/15/18 11/15/18 12:00 16:00 Temperature 98 F 98.1 F Pulse Rate 81 88 Respiratory 22 22 Rate Blood Pressure 110/54 121/56 (mmHg) O2 Sat by Pulse 95 100 Oximetry Oxygen Devices in Use Now: Nasal Cannula Appearance: stated age, NAD Eyes: No Scleral Icterus, PERRLA Ears/Nose/Mouth/Throat: NL Teeth, Lips, Gums, Clear Oropharnyx Neck: NL Appearance and Movements; NL JVP, Trachea Midline Respiratory: Symmetrical Chest Expansion and Respiratory Effort, Clear to Auscultation Cardiovascular: RRR Abdominal: NL Sounds; No Tenderness; No Distention Extremities: No Edema Skin: No Rash or Ulcers Neurological: Alert and Oriented x 3, - - left sided weakness Result Diagrams: 11/15/18 06:56 11/15/18 06:56 Microbiology and Other Data: Microbiology 11/01/18 14:30 Aerobic Blood Culture - Preliminary Blood Venous No Growth Day 1 Anaerobic Blood Culture - Preliminary No Growth Day 1 11/01/18 14:20 Aerobic Blood Culture - Preliminary Blood Venous No Growth Day 1 Anaerobic Blood Culture - Preliminary No Growth Day 1 11/02/18 05:26 Legionella Urinary Antigen - Final Urine Negative Legionella Antigen Streptococcus pneumoniae Ag Screen - Final Negative S. 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 Prior CT scan of the chest dated 06/19/2017 showed no change in the diameter the mid ascending aorta from today's study. Initial report created on 11/01/2018 9:52:39 PM EDT PROCEDURE INFORMATION: Exam: CT Chest With Contrast Exam date and time: 11/01/2018 8:42 PM Clinical history: 78 years old, male; Abdominal pain; Generalized; Other: Unknown; Additional info: Sepsis unknown origin ? pna vs intraabdominal path TECHNIQUE: Imaging protocol: Computed tomography of the chest with intravenous contrast. Radiation optimization: All CT scans at this facility use at least one of these dose optimization techniques: automated exposure control; mA and/or kV adjustment per patient size (includes targeted exams where dose is matched to clinical indication); or iterative reconstruction. Contrast material: OMNI 300; Contrast volume: 120 ml; Contrast route: IV; COMPARISON: C/A/P WO CT CHEST/ABD/PEL W/O 06/19/2017 2:04 PM FINDINGS: Limitations: Motion artifacts. Lungs: Consolidation of both lower lungs. The left lung being more involved than the right. Small lingular and right middle lung infiltrate. Pleural space: Small bilateral pleural effusions. No pneumothorax. Heart: Patient status post open heart surgery. Cardiac size is mildly enlarged. Severe coronary calcification. Mediastinum: No mediastinal mass. Small hiatal hernia. Aorta: Atheromatous changes involving the thoracic aorta. Ectasia of the ascending aorta. AP length of the mid ascending aorta is 4.2 cm. The AP length of the descending thoracic aorta at the level of the nohelia is 2.8 cm. Lymph nodes: No mediastinal adenopathy. Bones/joints: Degenerative changes of both shoulders. No overlapping rib fractures. Spondylotic changes of the thoracic spine. Soft tissues: Unremarkable. Stomach and bowel: Anterior confluent osteophyte formation from the cervical thoracic junction to the thoracolumbar junction. IMPRESSION: Bilateral lower lobe consolidation and small right middle lung and lingular infiltrates. The left lung being more involved than the right. This could represent a multilobar pneumonia. Small associated pleural effusions. Left greater than right. [facility] Patient Name:REYNALDO CRAMER MR:[id number] : 1940 PROCEDURE INFORMATION: Exam: CT Abdomen and Pelvis With Contrast Exam date and time: 11/01/2018 8:42 PM Clinical history: 78 years old, male; Abdominal pain; Generalized; Other: Unknown; Additional info: Sepsis unknown origin ? pna vs intraabdominal path TECHNIQUE: Imaging protocol: Computed tomography of the abdomen and pelvis with intravenous contrast. Radiation optimization: All CT scans at this facility use at least one of these dose optimization techniques: automated exposure control; mA and/or kV adjustment per patient size (includes targeted exams where dose is matched to clinical indication); or iterative reconstruction. Contrast material: OMNI 300; Contrast volume: 120 ml; Contrast route: IV; COMPARISON: C/A/P WO CT CHEST/ABD/PEL W/O 06/19/2017 2:04 PM FINDINGS: Liver: Normal. No mass. Gallbladder and bile ducts: Calcified stone located in the neck of the gallbladder. This was seen on prior CT scan dated 06/19/2017 and is unchanged in position. Pancreas: Normal. No ductal dilation. Spleen: Small punctate splenic calcification. The spleen is of normal size. Adrenals: Normal. No mass. Kidneys and ureters: Left renal cortical cyst measuring 3.9 cm in length. This has a density of 22 Hounsfield units. No hydronephrosis or nephrolithiasis. Stomach and bowel: No bowel obstruction. Diverticular changes involving the colon. No evidence of acute diverticulitis. Appendix: No evidence of appendicitis. Intraperitoneal space: Unremarkable. No free air. No significant fluid collection. Vasculature: Calcification of the wall of the abdominal aorta and iliac arteries. No aneurysm. Lymph nodes: Unremarkable. No enlarged lymph nodes. Bladder: Unremarkable as visualized. Reproductive: Unremarkable as visualized. Bones/joints: Spondylotic changes lumbar spine. Laminectomy from L3 to L5. No evidence of fracture or malalignment. Several threaded screws coursing through the left hip. Soft tissues: Unremarkable. Other findings: Limitation: Artifact created by the right arm. IMPRESSION: 1. No acute findings. 2. Cholelithiasis. Assess/Plan/Problems-Billing Assessment: Mr. Cramer is an 78 yo M with PMH of multiple CVAs, CAD, afib, HTN, and MDS; who presented to the ED with report of AMS, vomiting and fever and was found to have suspected aspiration pneumonia - Patient Problems (1) Acute respiratory failure Comment: suspicious for aspiration, though again cxr 11/10 looked like edema TTE with worsending sCHF (25-30% LVEF) and worsening Lasix 20mg IV again 11/13 On 2L O2 (improved) (2) Chronic systolic congestive heart failure Comment: with some evidence of mild volume overload worsening sCHF Holding meds while NPO reevalaute need for additional lasix in AM 11/16 (3) Dysphagia Comment: - Had an episode of aspiration on 11/03/18, suspect aspiration is the etiology for this admission overall - Failed swallow eval x2, discussed with [employer] - PPN initiated as short term solution - Suspect worsening swallow fxn in setting of multiple CVAs and acute illness - hopeful that when acute infection resolves he will be able to resume previous level of swallow fxn. With this in mind pt and would like to pursue PEG. - repeat TTE with worsening LVEF and put him at least moderate risk which likely underestimates given multiple comorbidities and debility. -Currently he is medically optimized, no additional testing indicated prior to PEG placement. Lovenox held thsi evning and in AM - PEG planned today Holding lovenox for procedure (4) MRSA pneumonia Comment: doxycycline day 10 11/15 mrsa is not consistent with the history of aspiration; will add clinda for anaerobic coverage, which will also cover mrsa repeat CXR 11/10 looked more like pulmonary edema than pneumonia -- Findings from repeat swallow eval today are pending (5) Myelodysplasia (myelodysplastic syndrome) Comment: counts are at baseline no signs of bleeding (6) Cerebrovascular accident Comment: MRI ruled out a new [employer] event that may have contributed to his dysphagia (7) DVT prophylaxis Comment: lovenox being held for procedure today Status and Disposition: Inpatient for acute respiratory failure and dysphagia.
[2018-11-15] MEDS: TPN* 24 HR with D10W 1000 ML BAG* 1,000 ML, Amino Acid Infusion 10%* 850 ML, Sterile Wa... IV SCH ×12 (20:18)
[2018-11-15] MEDS: Latanoprost 0.005%* 2.5 ml BTL BOTH EYES SCH (20:32)
--- NOTE | 2018-11-15 23:26 | PRO ---
DATE: 11/15/18 - ROOM #449 REFERRING PHYSICIANS: Ravi Pisano, Mattie Drew.* PROCEDURE: Upper gastrointestinal endoscopy and PEG tube placement. INDICATION: This 78-year-old man with atrial fibrillation, status post multiple strokes and myelodysplastic syndrome, has been unable to swallow. His prognosis as regards recovery of swallowing has had different opinions. He clearly is failing swallowing studies in a gross manner at this time. He had had prior wishes expressed of conservative care or limited palliative care but during this hospital stay, his and he have been able to voice the desire not to go without oral hydration and nutrition. His speech is garbled and he seems to enunciate desire to swallow or have that provided for him. It has been a complex set of discussions. He has high risk given myelodysplastic syndrome. He is on clindamycin now. ENDOSCOPIST: Dr. Watson. MEDICATIONS: Midazolam 4.5, fentanyl 50 in small increments. He is a chronically ill-appearing older man lying supine in bed. He was suctioned but still had trouble with airway secretions. Small doses were given to induce sedation. He tolerated the sedatives well. Oxygenation remained above 95%. EGD: Larynx - very gaggy and full of secretions and views were very limited. Esophagus - no gross disease. EG junction at about 40. Stomach - a speckled erythema consistent with either chronic gastritis or portal hypertensive change. There were no varices seen. There was no blood seen. The rugal pattern was normal. Finger indentation in anticipation of PEG was readily obtained. The antrum appeared normal. Duodenum - the bulb had no erosions or ulcers. Finger indentation was repeated. A standard process of disinfection, lidocaine , incision, trocar, and grasping the wire was done in a standard pull and traction, PEG accomplished in usual fashion. There was little if any bleeding. He tolerated it well. An endoscopic recheck confirmed placement at the exit at about 38 mm. IMPRESSION: 1. Chronic gastritis - without high risk features for bleeding. 2. Dysphagia and status post PEG placement - it can be used in the morning. [id number]/[facility] #: [id number] [facility]
[2018-11-16] MEDS: Clindamycin 300 MG IVPREMIX* 300 MG/50 ML SDV IV SCH ×3 (04:38→21:58)
[2018-11-16] MEDS: Pantoprazole IV* 40 MG IV SCH (08:09)
[2018-11-16 09:22] LABS: Anti-Striated Muscle Antibody Negative titer (<1:120)
[2018-11-16] MEDS ORDERED: Bisacodyl SUPP* 10 MG SUPP PR ONE (14:01)
--- NOTE | 2018-11-16 14:03 | PN ---
Subjective Date of Service: 11/16/18 Interval History: Please see duplicated note from Today 11/16 Family History: Unchanged from Admission Social History: Unchanged from Admission Past Medical History: Unchanged from Admission Objective Active Medications: Acetaminophen (Tylenol Supp*) 650 mg NM Q4H PRN PRN Reason: TEMPERATURE > 100.4 Last Admin: 11/11/18 23:49 Dose: 650 mg Albuterol/Ipratropium (Duoneb (Albuterol 2.5 Mg/Ipratropium 0.5 Mg)) 1 neb INH RT.[id number] AWAKE PRN PRN Reason: WHEEZING Dextrose 1,000 ml/ Amino Acids 850 ml/ Sterile Water 150 ml/Fat Emulsion Intravenous 500 ml/ Sodium Chloride 100 meq/Potassium Chloride 70 meq/Potassium Phosphate 15 mmole/Calcium Gluconate 15 meq/Magnesium Sulfate 20 meq/ Multivitamins 10 ml/ Trace Metals 1 ml/ Nutrition ( Parenteral) 2,613.1841 mls @ 108.942 mls/hr IV 1700 BROOK; Protocol Stop: 11/16/18 16:59 Last Admin: 11/15/18 20:18 Dose: 108.942 mls/hr Clindamycin HCl/Dextrose (Cleocin 300 Mg Ivpemix(*)) 300 mg in 50 mls @ 200 mls /hr IV Q8H BROOK Last Admin: 11/16/18 13:09 Dose: 200 mls/hr Latanoprost (Xalatan 0.005%*) 1 drop BOTH EYES BEDTIME BROOK; Protocol Last Admin: 11/15/18 20:32 Dose: 1 drop Ondansetron HCl (Zofran Inj*) 4 mg IV Q6H PRN PRN Reason: NAUSEA Pantoprazole Sodium (Protonix Iv*) 40 mg IV DAILY BROOK Last Admin: 11/16/18 08:09 Dose: 40 mg Vital Signs - 8 hr 11/16/18 11/16/18 08:00 08:58 Temperature 99.0 F Pulse Rate 90 Respiratory 20 18 Rate Blood Pressure 122/58 (mmHg) O2 Sat by Pulse 97 Oximetry Oxygen Devices in Use Now: None Result Diagrams: 11/20/18 07:59 11/18/18 06:13 Microbiology and Other Data: Microbiology 11/01/18 14:30 Aerobic Blood Culture - Preliminary Blood Venous No Growth Day 1 Anaerobic Blood Culture - Preliminary No Growth Day 1 11/01/18 14:20 Aerobic Blood Culture - Preliminary Blood Venous No Growth Day 1 Anaerobic Blood Culture - Preliminary No Growth Day 1 11/02/18 05:26 Legionella Urinary Antigen - Final Urine Negative Legionella Antigen Streptococcus pneumoniae Ag Screen - Final Negative S. 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 Prior CT scan of the chest dated 06/19/2017 showed no change in the diameter the mid ascending aorta from today's study. Initial report created on 11/01/2018 9:52:39 PM EDT PROCEDURE INFORMATION: Exam: CT Chest With Contrast Exam date and time: 11/01/2018 8:42 PM Clinical history: 78 years old, male; Abdominal pain; Generalized; Other: Unknown; Additional info: Sepsis unknown origin ? pna vs intraabdominal path TECHNIQUE: Imaging protocol: Computed tomography of the chest with intravenous contrast. Radiation optimization: All CT scans at this facility use at least one of these dose optimization techniques: automated exposure control; mA and/or kV adjustment per patient size (includes targeted exams where dose is matched to clinical indication); or iterative reconstruction. Contrast material: OMNI 300; Contrast volume: 120 ml; Contrast route: IV; COMPARISON: C/A/P WO CT CHEST/ABD/PEL W/O 06/19/2017 2:04 PM FINDINGS: Limitations: Motion artifacts. Lungs: Consolidation of both lower lungs. The left lung being more involved than the right. Small lingular and right middle lung infiltrate. Pleural space: Small bilateral pleural effusions. No pneumothorax. Heart: Patient status post open heart surgery. Cardiac size is mildly enlarged. Severe coronary calcification. Mediastinum: No mediastinal mass. Small hiatal hernia. Aorta: Atheromatous changes involving the thoracic aorta. Ectasia of the ascending aorta. AP length of the mid ascending aorta is 4.2 cm. The AP length of the descending thoracic aorta at the level of the nohelia is 2.8 cm. Lymph nodes: No mediastinal adenopathy. Bones/joints: Degenerative changes of both shoulders. No overlapping rib fractures. Spondylotic changes of the thoracic spine. Soft tissues: Unremarkable. Stomach and bowel: Anterior confluent osteophyte formation from the cervical thoracic junction to the thoracolumbar junction. IMPRESSION: Bilateral lower lobe consolidation and small right middle lung and lingular infiltrates. The left lung being more involved than the right. This could represent a multilobar pneumonia. Small associated pleural effusions. Left greater than right. [facility] Patient Name:REYNALDO CRAMER MR:[id number] : 1940 PROCEDURE INFORMATION: Exam: CT Abdomen and Pelvis With Contrast Exam date and time: 11/01/2018 8:42 PM Clinical history: 78 years old, male; Abdominal pain; Generalized; Other: Unknown; Additional info: Sepsis unknown origin ? pna vs intraabdominal path TECHNIQUE: Imaging protocol: Computed tomography of the abdomen and pelvis with intravenous contrast. Radiation optimization: All CT scans at this facility use at least one of these dose optimization techniques: automated exposure control; mA and/or kV adjustment per patient size (includes targeted exams where dose is matched to clinical indication); or iterative reconstruction. Contrast material: OMNI 300; Contrast volume: 120 ml; Contrast route: IV; COMPARISON: C/A/P WO CT CHEST/ABD/PEL W/O 06/19/2017 2:04 PM FINDINGS: Liver: Normal. No mass. Gallbladder and bile ducts: Calcified stone located in the neck of the gallbladder. This was seen on prior CT scan dated 06/19/2017 and is unchanged in position. Pancreas: Normal. No ductal dilation. Spleen: Small punctate splenic calcification. The spleen is of normal size. Adrenals: Normal. No mass. Kidneys and ureters: Left renal cortical cyst measuring 3.9 cm in length. This has a density of 22 Hounsfield units. No hydronephrosis or nephrolithiasis. Stomach and bowel: No bowel obstruction. Diverticular changes involving the colon. No evidence of acute diverticulitis. Appendix: No evidence of appendicitis. Intraperitoneal space: Unremarkable. No free air. No significant fluid collection. Vasculature: Calcification of the wall of the abdominal aorta and iliac arteries. No aneurysm. Lymph nodes: Unremarkable. No enlarged lymph nodes. Bladder: Unremarkable as visualized. Reproductive: Unremarkable as visualized. Bones/joints: Spondylotic changes lumbar spine. Laminectomy from L3 to L5. No evidence of fracture or malalignment. Several threaded screws coursing through the left hip. Soft tissues: Unremarkable. Other findings: Limitation: Artifact created by the right arm. IMPRESSION: 1. No acute findings. 2. Cholelithiasis. Assess/Plan/Problems-Billing Assessment: Mr. Cramer is an 78 yo M with PMH of multiple CVAs, CAD, afib, HTN, and MDS; who presented to the ED with report of AMS, vomiting and fever and was found to have suspected aspiration pneumonia - Patient Problems (1) Acute respiratory failure Comment: - Multifactorial aspiration PNA and HFrEF, - Now on RA (2) Chronic systolic congestive heart failure Comment: - HFrEF 30% - discussed thirst, possible free water boluses with , along with mouth swabs, may sate thirst, not likely to cause CHF decompensation since sodium intake low (3) Dysphagia Comment: - Speech therapy is following (4) MRSA pneumonia Comment: doxycycline day 12 11/17 - now stopped mrsa is not consistent with the history of aspiration; received clinda for anaerobic coverage, which will also cover mrsa - txed 6 days, stopped 11/17 repeat CXR 11/10 looked more like pulmonary edema than pneumonia (5) Myelodysplasia (myelodysplastic syndrome) Comment: - Plaquenil restarted (6) Cerebrovascular accident Comment: (7) Protein calorie malnutrition Comment: - Currently back on 60cc continuous, per report Jorge can deliver this - Will follow sodium, ensure not hypernatremic - A1c pending re hyperglycemia (8) DVT prophylaxis Comment: - Coumadin being bridged - repeat INR in AM 11/21 Status and Disposition: Inpatient for acute respiratory failure and dysphagia.
--- NOTE | 2018-11-16 16:57 | PN ---
Subjective Date of Service: 11/16/18 Interval History: Uncomplicated PEG placement 11/15 feels swallowing of pt's own secretions is improving as indicated by decreased coughing pt some some pain around site of new PEG otherwise without complaints Family History: Unchanged from Admission Social History: Unchanged from Admission Past Medical History: Unchanged from Admission Objective Active Medications: Acetaminophen (Tylenol Supp*) 650 mg LA Q4H PRN PRN Reason: TEMPERATURE > 100.4 Last Admin: 11/11/18 23:49 Dose: 650 mg Albuterol/Ipratropium (Duoneb (Albuterol 2.5 Mg/Ipratropium 0.5 Mg)) 1 neb INH [id number] AWAKE PRN PRN Reason: WHEEZING Dextrose 1,000 ml/ Amino Acids 850 ml/ Sterile Water 150 ml/Fat Emulsion Intravenous 500 ml/ Sodium Chloride 100 meq/Potassium Chloride 70 meq/Potassium Phosphate 15 mmole/Calcium Gluconate 15 meq/Magnesium Sulfate 20 meq/ Multivitamins 10 ml/ Trace Metals 1 ml/ Nutrition ( Parenteral) 2,613.1841 mls @ 108.942 mls/hr IV 1700 [facility]; Protocol Stop: 11/16/18 16:59 Last Admin: 11/15/18 20:18 Dose: 108.942 mls/hr Clindamycin HCl/Dextrose (Cleocin 300 Mg Ivpemix(*)) 300 mg in 50 mls @ 200 mls /hr IV Q8H [facility] Last Admin: 11/16/18 13:09 Dose: 200 mls/hr Latanoprost (Xalatan 0.005%*) 1 drop BOTH EYES BEDTIME [facility]; Protocol Last Admin: 11/15/18 20:32 Dose: 1 drop Ondansetron HCl (Zofran Inj*) 4 mg IV Q6H PRN PRN Reason: NAUSEA Pantoprazole Sodium (Protonix Iv*) 40 mg IV DAILY [facility] Last Admin: 11/16/18 08:09 Dose: 40 mg Warfarin Sodium (Coumadin Tab(*)) 5 mg PO ONCE@1700 ONE; Protocol Stop: 11/16/18 17:01 Vital Signs - 8 hr 11/16/18 11/16/18 08:58 16:00 Temperature 99.0 F 97.0 F Pulse Rate 90 88 Respiratory 18 20 Rate Blood Pressure 122/58 101/53 (mmHg) O2 Sat by Pulse 97 95 Oximetry Oxygen Devices in Use Now: None Appearance: sitting in chair, NAD Eyes: No Scleral Icterus Ears/Nose/Mouth/Throat: NL Teeth, Lips, Gums, Clear Oropharnyx Neck: NL Appearance and Movements; NL JVP, Trachea Midline Respiratory: Symmetrical Chest Expansion and Respiratory Effort Cardiovascular: NL Sounds; No Murmurs; No JVD, RRR Abdominal: NL Sounds; No Tenderness; No Distention Lymphatic: No Cervical Adenopathy Extremities: No Edema Skin: No Rash or Ulcers Neurological: Alert and Oriented x 3, - - left sided weakness Result Diagrams: 11/15/18 06:56 11/15/18 06:56 Microbiology and Other Data: Microbiology 11/01/18 14:30 Aerobic Blood Culture - Preliminary Blood Venous No Growth Day 1 Anaerobic Blood Culture - Preliminary No Growth Day 1 11/01/18 14:20 Aerobic Blood Culture - Preliminary Blood Venous No Growth Day 1 Anaerobic Blood Culture - Preliminary No Growth Day 1 11/02/18 05:26 Legionella Urinary Antigen - Final Urine Negative Legionella Antigen Streptococcus pneumoniae Ag Screen - Final Negative S. 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 Prior CT scan of the chest dated 06/19/2017 showed no change in the diameter the mid ascending aorta from today's study. Initial report created on 11/01/2018 9:52:39 PM EDT PROCEDURE INFORMATION: Exam: CT Chest With Contrast Exam date and time: 11/01/2018 8:42 PM Clinical history: 78 years old, male; Abdominal pain; Generalized; Other: Unknown; Additional info: Sepsis unknown origin ? pna vs intraabdominal path TECHNIQUE: Imaging protocol: Computed tomography of the chest with intravenous contrast. Radiation optimization: All CT scans at this facility use at least one of these dose optimization techniques: automated exposure control; mA and/or kV adjustment per patient size (includes targeted exams where dose is matched to clinical indication); or iterative reconstruction. Contrast material: OMNI 300; Contrast volume: 120 ml; Contrast route: IV; COMPARISON: C/A/P WO CT CHEST/ABD/PEL W/O 06/19/2017 2:04 PM FINDINGS: Limitations: Motion artifacts. Lungs: Consolidation of both lower lungs. The left lung being more involved than the right. Small lingular and right middle lung infiltrate. Pleural space: Small bilateral pleural effusions. No pneumothorax. Heart: Patient status post open heart surgery. Cardiac size is mildly enlarged. Severe coronary calcification. Mediastinum: No mediastinal mass. Small hiatal hernia. Aorta: Atheromatous changes involving the thoracic aorta. Ectasia of the ascending aorta. AP length of the mid ascending aorta is 4.2 cm. The AP length of the descending thoracic aorta at the level of the nohelia is 2.8 cm. Lymph nodes: No mediastinal adenopathy. Bones/joints: Degenerative changes of both shoulders. No overlapping rib fractures. Spondylotic changes of the thoracic spine. Soft tissues: Unremarkable. Stomach and bowel: Anterior confluent osteophyte formation from the cervical thoracic junction to the thoracolumbar junction. IMPRESSION: Bilateral lower lobe consolidation and small right middle lung and lingular infiltrates. The left lung being more involved than the right. This could represent a multilobar pneumonia. Small associated pleural effusions. Left greater than right. [facility] Patient Name:REYNALDO CRAMER MR:[id number] : 1940 PROCEDURE INFORMATION: Exam: CT Abdomen and Pelvis With Contrast Exam date and time: 11/01/2018 8:42 PM Clinical history: 78 years old, male; Abdominal pain; Generalized; Other: Unknown; Additional info: Sepsis unknown origin ? pna vs intraabdominal path TECHNIQUE: Imaging protocol: Computed tomography of the abdomen and pelvis with intravenous contrast. Radiation optimization: All CT scans at this facility use at least one of these dose optimization techniques: automated exposure control; mA and/or kV adjustment per patient size (includes targeted exams where dose is matched to clinical indication); or iterative reconstruction. Contrast material: OMNI 300; Contrast volume: 120 ml; Contrast route: IV; COMPARISON: C/A/P WO CT CHEST/ABD/PEL W/O 06/19/2017 2:04 PM FINDINGS: Liver: Normal. No mass. Gallbladder and bile ducts: Calcified stone located in the neck of the gallbladder. This was seen on prior CT scan dated 06/19/2017 and is unchanged in position. Pancreas: Normal. No ductal dilation. Spleen: Small punctate splenic calcification. The spleen is of normal size. Adrenals: Normal. No mass. Kidneys and ureters: Left renal cortical cyst measuring 3.9 cm in length. This has a density of 22 Hounsfield units. No hydronephrosis or nephrolithiasis. Stomach and bowel: No bowel obstruction. Diverticular changes involving the colon. No evidence of acute diverticulitis. Appendix: No evidence of appendicitis. Intraperitoneal space: Unremarkable. No free air. No significant fluid collection. Vasculature: Calcification of the wall of the abdominal aorta and iliac arteries. No aneurysm. Lymph nodes: Unremarkable. No enlarged lymph nodes. Bladder: Unremarkable as visualized. Reproductive: Unremarkable as visualized. Bones/joints: Spondylotic changes lumbar spine. Laminectomy from L3 to L5. No evidence of fracture or malalignment. Several threaded screws coursing through the left hip. Soft tissues: Unremarkable. Other findings: Limitation: Artifact created by the right arm. IMPRESSION: 1. No acute findings. 2. Cholelithiasis. Assess/Plan/Problems-Billing Assessment: Mr. Cramer is an 78 yo M with PMH of multiple CVAs, CAD, afib, HTN, and MDS; who presented to the ED with report of AMS, vomiting and fever and was found to have suspected aspiration pneumonia - Patient Problems (1) Acute respiratory failure Comment: suspicious for aspiration, though again cxr 11/10 looked like edema TTE with worsending sCHF (25-30% LVEF) and worsening Lasix 20mg IV again 11/13 On 2L O2 (improved) (2) Chronic systolic congestive heart failure Comment: with some evidence of mild volume overload worsening sCHF Holding meds while NPO reevalaute need for additional lasix daily (3) Dysphagia Comment: - Had an episode of aspiration on 11/03/18, suspect aspiration is the etiology for this admission overall - Failed swallow eval x2, discussed with MANAGER FIELD SALES - PPN initiated as short term solution - Suspect worsening swallow fxn in setting of multiple CVAs and acute illness - hopeful that when acute infection resolves he will be able to resume previous level of swallow fxn. With this in mind pt and would like to pursue PEG. - repeat TTE with worsening LVEF and put him at least moderate risk which likely underestimates given multiple comorbidities and debility. -Currently he is medically optimized, no additional testing indicated prior to PEG placement. Lovenox held thsi evning and in AM - PEG placed 11/16 Holding lovenox for procedure (4) MRSA pneumonia Comment: doxycycline day 11 11/16 mrsa is not consistent with the history of aspiration; will add clinda for anaerobic coverage, which will also cover mrsa repeat CXR 11/10 looked more like pulmonary edema than pneumonia -- Findings from repeat swallow eval today are pending (5) Myelodysplasia (myelodysplastic syndrome) Comment: counts are at baseline no signs of bleeding (6) Cerebrovascular accident Comment: MRI ruled out a new CEO NA event that may have contributed to his dysphagia (7) Protein calorie malnutrition Comment: - begin Jevity 1.2 @ 20ml/hr - continue at low rate until pt has BM (suppository ordered) - GOAL 60ml/hr (or if eventual bolus regimen, SIX cartons Jevity 1.2 daily) (8) DVT prophylaxis Comment: lovenox being held s/p procedure restart coumadin 11/16 and restart lovenox 11/17 Status and Disposition: Inpatient for acute respiratory failure and dysphagia.
[2018-11-16] MEDS ORDERED: Warfarin TAB(*) 5 MG PO ONE (17:00)
--- NOTE | 2018-11-16 17:57 | PN ---
Progress Note - Progress Note Date of Service: 11/16/18 Note: GI Note Patient seen and examined Abd: peg site c/d/i, bumper a little close to skin, moved back 1cm to 5.5. Impression: successful PEG placement Rec: ok to use. Micha Negrete DO 11/16/18 1800
[2018-11-16] MEDS: Latanoprost 0.005%* 2.5 ml BTL BOTH EYES SCH (22:02)
[2018-11-17] MEDS: Clindamycin 300 MG IVPREMIX* 300 MG/50 ML SDV IV SCH ×2 (04:58→15:09)
[2018-11-17 05:49] LABS: INR 1.15 (0.82-1.09)
[2018-11-17] MEDS: Pantoprazole IV* 40 MG IV SCH (08:55)
[2018-11-17] MEDS ORDERED: Fluticasone NASAL SPRAY 50MCG* 16 gm SPRAY BTL BOTH NARES PRN (16:52)
[2018-11-17] MEDS ORDERED: Sodium Phosphate ADULT ENEMA* 118 ml bottle PR PRN (16:52)
[2018-11-17] MEDS ORDERED: Bisacodyl SUPP* 10 MG SUPP PR PRN (16:52)
[2018-11-17] MEDS ORDERED: Warfarin TAB(*) 2.5 MG PO SCH (17:00)
--- NOTE | 2018-11-17 17:06 | PN ---
Subjective Date of Service: 11/17/18 Interval History: Pt feels well at bedside feels he is handling secretions better today No nausea, emesis, bloating BM this AM Family History: Unchanged from Admission Social History: Unchanged from Admission Past Medical History: Unchanged from Admission Objective Active Medications: Acetaminophen (Tylenol Supp*) 650 mg DC Q4H PRN PRN Reason: TEMPERATURE > 100.4 Last Admin: 11/11/18 23:49 Dose: 650 mg Albuterol/Ipratropium (Duoneb (Albuterol 2.5 Mg/Ipratropium 0.5 Mg)) 1 neb INH [id number] AWAKE PRN PRN Reason: WHEEZING Aspirin (Aspirin 81 Mg Chew Tab*) 81 mg PEG TUBE DAILY [facility] Atorvastatin Calcium (Lipitor*) 10 mg PEG TUBE QPM [facility] Bisacodyl (Dulcolax Supp*) 10 mg DC DAILY PRN PRN Reason: no bm in 3 days Fluticasone Propionate (Flonase Nasal [place] 50mcg*) 2 spray BOTH NARES DAILY PRN PRN Reason: CONGESTION Hydroxychloroquine Sulfate (Plaquenil Tab*) 400 mg PEG TUBE DAILY [facility] Clindamycin HCl/Dextrose (Cleocin 300 Mg Ivpemix(*)) 300 mg in 50 mls @ 200 mls /hr IV Q8H [facility] Last Admin: 11/17/18 15:09 Dose: 200 mls/hr Latanoprost (Xalatan 0.005%*) 1 drop BOTH EYES BEDTIME [facility]; Protocol Last Admin: 11/16/18 22:02 Dose: 1 drop Ondansetron HCl (Zofran Inj*) 4 mg IV Q6H PRN PRN Reason: NAUSEA Pantoprazole Sodium (Protonix Iv*) 40 mg IV DAILY [facility] Last Admin: 11/17/18 08:55 Dose: 40 mg Sertraline HCl (Zoloft*) 150 mg PO DAILY [facility] Sodium Biphosphate/Sodium Phosphate (Fleet Enema*) 1 bottle DC DAILY PRN PRN Reason: CONSTIPATION Warfarin Sodium (Coumadin Tab(*)) 2.5 mg PO TUTHFRSA [facility]; Protocol Vital Signs - 8 hr 11/17/18 11/17/18 12:00 16:00 Temperature 98.3 F 98.5 F Pulse Rate 80 89 Respiratory 16 18 Rate Blood Pressure 109/53 103/54 (mmHg) O2 Sat by Pulse 96 98 Oximetry Oxygen Devices in Use Now: None Appearance: sitting in chair, NAD Eyes: No Scleral Icterus, PERRLA Ears/Nose/Mouth/Throat: NL Teeth, Lips, Gums, Clear Oropharnyx Neck: NL Appearance and Movements; NL JVP, Trachea Midline Respiratory: Symmetrical Chest Expansion and Respiratory Effort, Clear to Auscultation Cardiovascular: RRR Abdominal: - - PEG site c/d/i Lymphatic: No Cervical Adenopathy Extremities: No Edema Skin: No Rash or Ulcers Neurological: - - aox2 to self and hospital, "2019" Result Diagrams: 11/15/18 06:56 11/15/18 06:56 Microbiology and Other Data: Microbiology 11/01/18 14:30 Aerobic Blood Culture - Preliminary Blood Venous No Growth Day 1 Anaerobic Blood Culture - Preliminary No Growth Day 1 11/01/18 14:20 Aerobic Blood Culture - Preliminary Blood Venous No Growth Day 1 Anaerobic Blood Culture - Preliminary No Growth Day 1 11/02/18 05:26 Legionella Urinary Antigen - Final Urine Negative Legionella Antigen Streptococcus pneumoniae Ag Screen - Final Negative S. 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 Prior CT scan of the chest dated 06/19/2017 showed no change in the diameter the mid ascending aorta from today's study. Initial report created on 11/01/2018 9:52:39 PM EDT PROCEDURE INFORMATION: Exam: CT Chest With Contrast Exam date and time: 11/01/2018 8:42 PM Clinical history: 78 years old, male; Abdominal pain; Generalized; Other: Unknown; Additional info: Sepsis unknown origin ? pna vs intraabdominal path TECHNIQUE: Imaging protocol: Computed tomography of the chest with intravenous contrast. Radiation optimization: All CT scans at this facility use at least one of these dose optimization techniques: automated exposure control; mA and/or kV adjustment per patient size (includes targeted exams where dose is matched to clinical indication); or iterative reconstruction. Contrast material: OMNI 300; Contrast volume: 120 ml; Contrast route: IV; COMPARISON: C/A/P WO CT CHEST/ABD/PEL W/O 06/19/2017 2:04 PM FINDINGS: Limitations: Motion artifacts. Lungs: Consolidation of both lower lungs. The left lung being more involved than the right. Small lingular and right middle lung infiltrate. Pleural space: Small bilateral pleural effusions. No pneumothorax. Heart: Patient status post open heart surgery. Cardiac size is mildly enlarged. Severe coronary calcification. Mediastinum: No mediastinal mass. Small hiatal hernia. Aorta: Atheromatous changes involving the thoracic aorta. Ectasia of the ascending aorta. AP length of the mid ascending aorta is 4.2 cm. The AP length of the descending thoracic aorta at the level of the nohelia is 2.8 cm. Lymph nodes: No mediastinal adenopathy. Bones/joints: Degenerative changes of both shoulders. No overlapping rib fractures. Spondylotic changes of the thoracic spine. Soft tissues: Unremarkable. Stomach and bowel: Anterior confluent osteophyte formation from the cervical thoracic junction to the thoracolumbar junction. IMPRESSION: Bilateral lower lobe consolidation and small right middle lung and lingular infiltrates. The left lung being more involved than the right. This could represent a multilobar pneumonia. Small associated pleural effusions. Left greater than right. [facility] Patient Name:REYNALDO CRAMER MR:[id number] : 1940 PROCEDURE INFORMATION: Exam: CT Abdomen and Pelvis With Contrast Exam date and time: 11/01/2018 8:42 PM Clinical history: 78 years old, male; Abdominal pain; Generalized; Other: Unknown; Additional info: Sepsis unknown origin ? pna vs intraabdominal path TECHNIQUE: Imaging protocol: Computed tomography of the abdomen and pelvis with intravenous contrast. Radiation optimization: All CT scans at this facility use at least one of these dose optimization techniques: automated exposure control; mA and/or kV adjustment per patient size (includes targeted exams where dose is matched to clinical indication); or iterative reconstruction. Contrast material: OMNI 300; Contrast volume: 120 ml; Contrast route: IV; COMPARISON: C/A/P WO CT CHEST/ABD/PEL W/O 06/19/2017 2:04 PM FINDINGS: Liver: Normal. No mass. Gallbladder and bile ducts: Calcified stone located in the neck of the gallbladder. This was seen on prior CT scan dated 06/19/2017 and is unchanged in position. Pancreas: Normal. No ductal dilation. Spleen: Small punctate splenic calcification. The spleen is of normal size. Adrenals: Normal. No mass. Kidneys and ureters: Left renal cortical cyst measuring 3.9 cm in length. This has a density of 22 Hounsfield units. No hydronephrosis or nephrolithiasis. Stomach and bowel: No bowel obstruction. Diverticular changes involving the colon. No evidence of acute diverticulitis. Appendix: No evidence of appendicitis. Intraperitoneal space: Unremarkable. No free air. No significant fluid collection. Vasculature: Calcification of the wall of the abdominal aorta and iliac arteries. No aneurysm. Lymph nodes: Unremarkable. No enlarged lymph nodes. Bladder: Unremarkable as visualized. Reproductive: Unremarkable as visualized. Bones/joints: Spondylotic changes lumbar spine. Laminectomy from L3 to L5. No evidence of fracture or malalignment. Several threaded screws coursing through the left hip. Soft tissues: Unremarkable. Other findings: Limitation: Artifact created by the right arm. IMPRESSION: 1. No acute findings. 2. Cholelithiasis. Assess/Plan/Problems-Billing Assessment: Mr. Cramer is an 78 yo M with PMH of multiple CVAs, CAD, afib, HTN, and MDS; who presented to the ED with report of AMS, vomiting and fever and was found to have suspected aspiration pneumonia - Patient Problems (1) Acute respiratory failure Comment: suspicious for aspiration, though again cxr 11/10 looked like edema TTE with worsending sCHF (25-30% LVEF) and worsening Lasix 20mg IV again 11/13 On RA today 11/17, lungs clear (2) Chronic systolic congestive heart failure Comment: with some evidence of mild volume overload worsening sCHF carvedilol, statin, ASA, holding aldactone for low BP reevalaute need for additional lasix daily (3) Dysphagia Comment: - Had an episode of aspiration on 11/03/18, suspect aspiration is the etiology for this admission overall - Failed swallow eval x2, discussed with PATIENT REGISTRATION SUPERVISOR - PPN initiated as short term solution now with PEG (11/16) and enteral feeding started (4) MRSA pneumonia Comment: doxycycline day 12 11/17 - will stop now mrsa is not consistent with the history of aspiration; will add clinda for anaerobic coverage, which will also cover mrsa repeat CXR 11/10 looked more like pulmonary edema than pneumonia -- Findings from repeat swallow eval today are pending (5) Myelodysplasia (myelodysplastic syndrome) Comment: counts are at baseline no signs of bleeding (6) Cerebrovascular accident Comment: MRI ruled out a new [employer]ENDANT event that may have contributed to his dysphagia (7) Protein calorie malnutrition Comment: - begin Jevity 1.2 @ 30ml/hr and increase 10cc/hr qshift to goal of 60cc/hr - GOAL 60ml/hr (or if eventual bolus regimen, SIX cartons Jevity 1.2 daily) -If tolerates goal 60 cc/hr will attempt transition to bolus for ease of administration at [place] and eventually home. [place] can deliver continuous TFs per report (8) DVT prophylaxis Comment: coumadin to lovenox bridge repeat INR in AM 11/18 Status and Disposition: Inpatient for acute respiratory failure and dysphagia. Plan on [facility] Tuesday
[2018-11-17] MEDS: Atorvastatin* 10 MG TAB PEG TUBE SCH (17:17)
[2018-11-17] MEDS ORDERED: Warfarin TAB(*) 5 MG PEG TUBE ONE (18:00)
[2018-11-17] MEDS: Enoxaparin(*) 100 MG/ML SYR SUBCUT SCH (21:08)
[2018-11-17] MEDS: Latanoprost 0.005%* 2.5 ml BTL BOTH EYES SCH (21:09)
[2018-11-18 07:10] LABS: Hematocrit 30 % (42-52); Hemoglobin 10.2 g/dL (14.0-18.0); Mean Corpuscular HGB Conc 34 g/dL (31-36); Mean Corpuscular Hemoglobin 29 pg (27-31); Mean Corpuscular Volume 88 fL (80-94); Mean Platelet Volume 11.5 fL (7.4-10.4); Platelet Count 75 10^3/uL (150-450); Red Blood Count 3.47 10^6 /uL (4.18-5.48); Red Cell Distribution Width 17 % (10-15); White Blood Count 2.5 10^3/uL (3.5-10.8)
[2018-11-18 07:15] LABS: Albumin 3.6 g/dL (3.2-5.2); BUN/Creatinine Ratio 18.5 (8-20); Calcium 9.3 mg/dL (8.6-10.3); EGFR African American 110.9 (>60); EGFR Non-African American 91.7 (>60); Globulin 3.6 g/dL (2-4); Indirect Bilirubin 0.7 mg/dL (0.3-1.0); Potassium 3.9 mmol/L (3.5-5.0); Total Bilirubin 0.9 mg/dL (0.2-1.0); Total Protein 7.2 g/dL (6.4-8.9)
[2018-11-18 07:38] LABS: ABS Lymphocytes 0.8 10^3/ul (1.0-4.8); ABS Monocytes 0.5 10^3/ul (0-0.8); ABS Neutrophils 1.2 10^3/ul (1.5-7.7); Eosinophil % 0.2 %; Lymphocyte % 33.5 %
[2018-11-18] MEDS: Aspirin 81 mg CHEW TAB* 81 MG TAB.CHEW PEG TUBE SCH (09:28)
[2018-11-18] MEDS: Sertraline* 100 MG TAB PO SCH (09:28)
[2018-11-18] MEDS: Hydroxychloroquine TAB* 200 MG PEG TUBE SCH (09:28)
[2018-11-18] MEDS: Pantoprazole IV* 40 MG IV SCH (09:29)
[2018-11-18] MEDS: Enoxaparin(*) 100 MG/ML SYR SUBCUT SCH ×2 (09:29→20:46)
--- NOTE | 2018-11-18 14:38 | PN ---
Subjective Date of Service: 11/18/18 Interval History: No pain no bloating, no N/V No complaints feels "well" Family History: Unchanged from Admission Social History: Unchanged from Admission Past Medical History: Unchanged from Admission Objective Active Medications: Acetaminophen (Tylenol Supp*) 650 mg VT Q4H PRN PRN Reason: TEMPERATURE > 100.4 Last Admin: 11/11/18 23:49 Dose: 650 mg Albuterol/Ipratropium (Duoneb (Albuterol 2.5 Mg/Ipratropium 0.5 Mg)) 1 neb INH [id number] AWAKE PRN PRN Reason: WHEEZING Aspirin (Aspirin 81 Mg Chew Tab*) 81 mg PEG TUBE DAILY [facility] Last Admin: 11/18/18 09:28 Dose: 81 mg Atorvastatin Calcium (Lipitor*) 10 mg PEG TUBE QPM [facility] Last Admin: 11/17/18 17:17 Dose: 10 mg Bisacodyl (Dulcolax Supp*) 10 mg VT DAILY PRN PRN Reason: no bm in 3 days Enoxaparin Sodium (Lovenox(*)) 90 mg SUBCUT Q12H [facility] Last Admin: 11/18/18 09:29 Dose: 90 mg Fluticasone Propionate (Flonase Nasal [place] 50mcg*) 2 spray BOTH NARES DAILY PRN PRN Reason: CONGESTION Hydroxychloroquine Sulfate (Plaquenil Tab*) 400 mg PEG TUBE DAILY [facility] Last Admin: 11/18/18 09:28 Dose: 400 mg Latanoprost (Xalatan 0.005%*) 1 drop BOTH EYES BEDTIME [facility]; Protocol Last Admin: 11/17/18 21:09 Dose: 1 drop Ondansetron HCl (Zofran Inj*) 4 mg IV Q6H PRN PRN Reason: NAUSEA Pantoprazole Sodium (Protonix Iv*) 40 mg IV DAILY [facility] Last Admin: 11/18/18 09:29 Dose: 40 mg Sertraline HCl (Zoloft*) 150 mg PO DAILY [facility] Last Admin: 11/18/18 09:28 Dose: 150 mg Sodium Biphosphate/Sodium Phosphate (Fleet Enema*) 1 bottle VT DAILY PRN PRN Reason: CONSTIPATION Warfarin Sodium (Coumadin Tab(*)) 5 mg PEG TUBE SuMoWe@1700 [facility]; Protocol Warfarin Sodium (Coumadin Tab(*)) 2.5 mg PEG TUBE TuThFr@1700 [facility]; Protocol Vital Signs - 8 hr 11/18/18 11/18/18 11/18/18 07:28 08:00 12:00 Temperature 98.2 F 98 F Pulse Rate 86 94 Respiratory 18 18 20 Rate Blood Pressure 119/56 125/59 (mmHg) O2 Sat by Pulse 98 98 100 Oximetry Oxygen Devices in Use Now: None Appearance: NAD, sitting in chair Eyes: No Scleral Icterus, PERRLA Ears/Nose/Mouth/Throat: NL Teeth, Lips, Gums, Clear Oropharnyx Neck: NL Appearance and Movements; NL JVP Respiratory: Symmetrical Chest Expansion and Respiratory Effort, - - faint rhonchi in left base Cardiovascular: RRR Abdominal: NL Sounds; No Tenderness; No Distention, No Hepatosplenomegaly, - - peg site c/d/i Extremities: No Edema Neurological: - - oriented to name, "[facility]" and thinks it is 2020 Result Diagrams: 11/18/18 06:13 11/18/18 06:13 Microbiology and Other Data: Microbiology 11/01/18 14:30 Aerobic Blood Culture - Preliminary Blood Venous No Growth Day 1 Anaerobic Blood Culture - Preliminary No Growth Day 1 11/01/18 14:20 Aerobic Blood Culture - Preliminary Blood Venous No Growth Day 1 Anaerobic Blood Culture - Preliminary No Growth Day 1 11/02/18 05:26 Legionella Urinary Antigen - Final Urine Negative Legionella Antigen Streptococcus pneumoniae Ag Screen - Final Negative S. 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 Prior CT scan of the chest dated 06/19/2017 showed no change in the diameter the mid ascending aorta from today's study. Initial report created on 11/01/2018 9:52:39 PM EDT PROCEDURE INFORMATION: Exam: CT Chest With Contrast Exam date and time: 11/01/2018 8:42 PM Clinical history: 78 years old, male; Abdominal pain; Generalized; Other: Unknown; Additional info: Sepsis unknown origin ? pna vs intraabdominal path TECHNIQUE: Imaging protocol: Computed tomography of the chest with intravenous contrast. Radiation optimization: All CT scans at this facility use at least one of these dose optimization techniques: automated exposure control; mA and/or kV adjustment per patient size (includes targeted exams where dose is matched to clinical indication); or iterative reconstruction. Contrast material: OMNI 300; Contrast volume: 120 ml; Contrast route: IV; COMPARISON: C/A/P WO CT CHEST/ABD/PEL W/O 06/19/2017 2:04 PM FINDINGS: Limitations: Motion artifacts. Lungs: Consolidation of both lower lungs. The left lung being more involved than the right. Small lingular and right middle lung infiltrate. Pleural space: Small bilateral pleural effusions. No pneumothorax. Heart: Patient status post open heart surgery. Cardiac size is mildly enlarged. Severe coronary calcification. Mediastinum: No mediastinal mass. Small hiatal hernia. Aorta: Atheromatous changes involving the thoracic aorta. Ectasia of the ascending aorta. AP length of the mid ascending aorta is 4.2 cm. The AP length of the descending thoracic aorta at the level of the nohelia is 2.8 cm. Lymph nodes: No mediastinal adenopathy. Bones/joints: Degenerative changes of both shoulders. No overlapping rib fractures. Spondylotic changes of the thoracic spine. Soft tissues: Unremarkable. Stomach and bowel: Anterior confluent osteophyte formation from the cervical thoracic junction to the thoracolumbar junction. IMPRESSION: Bilateral lower lobe consolidation and small right middle lung and lingular infiltrates. The left lung being more involved than the right. This could represent a multilobar pneumonia. Small associated pleural effusions. Left greater than right. [facility] Patient Name:REYNALDO CRAMER MR:[id number] : 1940 PROCEDURE INFORMATION: Exam: CT Abdomen and Pelvis With Contrast Exam date and time: 11/01/2018 8:42 PM Clinical history: 78 years old, male; Abdominal pain; Generalized; Other: Unknown; Additional info: Sepsis unknown origin ? pna vs intraabdominal path TECHNIQUE: Imaging protocol: Computed tomography of the abdomen and pelvis with intravenous contrast. Radiation optimization: All CT scans at this facility use at least one of these dose optimization techniques: automated exposure control; mA and/or kV adjustment per patient size (includes targeted exams where dose is matched to clinical indication); or iterative reconstruction. Contrast material: OMNI 300; Contrast volume: 120 ml; Contrast route: IV; COMPARISON: C/A/P WO CT CHEST/ABD/PEL W/O 06/19/2017 2:04 PM FINDINGS: Liver: Normal. No mass. Gallbladder and bile ducts: Calcified stone located in the neck of the gallbladder. This was seen on prior CT scan dated 06/19/2017 and is unchanged in position. Pancreas: Normal. No ductal dilation. Spleen: Small punctate splenic calcification. The spleen is of normal size. Adrenals: Normal. No mass. Kidneys and ureters: Left renal cortical cyst measuring 3.9 cm in length. This has a density of 22 Hounsfield units. No hydronephrosis or nephrolithiasis. Stomach and bowel: No bowel obstruction. Diverticular changes involving the colon. No evidence of acute diverticulitis. Appendix: No evidence of appendicitis. Intraperitoneal space: Unremarkable. No free air. No significant fluid collection. Vasculature: Calcification of the wall of the abdominal aorta and iliac arteries. No aneurysm. Lymph nodes: Unremarkable. No enlarged lymph nodes. Bladder: Unremarkable as visualized. Reproductive: Unremarkable as visualized. Bones/joints: Spondylotic changes lumbar spine. Laminectomy from L3 to L5. No evidence of fracture or malalignment. Several threaded screws coursing through the left hip. Soft tissues: Unremarkable. Other findings: Limitation: Artifact created by the right arm. IMPRESSION: 1. No acute findings. 2. Cholelithiasis. Assess/Plan/Problems-Billing Assessment: Mr. Cramer is an 78 yo M with PMH of multiple CVAs, CAD, afib, HTN, and MDS; who presented to the ED with report of AMS, vomiting and fever and was found to have suspected aspiration pneumonia - Patient Problems (1) Acute respiratory failure Comment: suspicious for aspiration, though again cxr 11/10 looked like edema TTE with worsending sCHF (25-30% LVEF) and worsening Lasix 20mg IV again 11/13 Now on RA (2) Chronic systolic congestive heart failure Comment: with some evidence of mild volume overload on presentation - now resolved worsening sCHF carvedilol, statin, ASA, holding aldactone for low BP reevalaute need for additional lasix daily (3) Dysphagia Comment: - Had an episode of aspiration on 11/03/18, suspect aspiration is the etiology for this admission overall - Failed swallow eval x2, discussed with PAPER INSPECTOR - PPN initiated as short term solution now with PEG (11/16) and enteral feeding started (4) MRSA pneumonia Comment: doxycycline day 12 11/17 - will stop now mrsa is not consistent with the history of aspiration; will add clinda for anaerobic coverage, which will also cover mrsa - txed 6 days, stopped 11/17 repeat CXR 11/10 looked more like pulmonary edema than pneumonia -- Findings from repeat swallow eval today are pending (5) Myelodysplasia (myelodysplastic syndrome) Comment: counts are at baseline no signs of bleeding (6) Cerebrovascular accident Comment: MRI ruled out a new RN SOCIAL SERVICES event that may have contributed to his dysphagia (7) Protein calorie malnutrition Comment: - begin Jevity 1.2 @ 30ml/hr and increase 10cc/hr qshift to goal of 60cc/hr - GOAL 60ml/hr (or if eventual bolus regimen, SIX cartons Jevity 1.2 daily) -transition to bolus feeds 120cc q4hrs daily 11/18 (8) DVT prophylaxis Comment: coumadin to lovenox bridge repeat INR in AM 11/19 Status and Disposition: Inpatient for acute respiratory failure and dysphagia. Plan on [facility] Tuesday
[2018-11-18] MEDS ORDERED: Warfarin TAB(*) 2.5 MG PEG TUBE SCH (17:00)
[2018-11-18] MEDS: Atorvastatin* 10 MG TAB PEG TUBE SCH (17:52)
[2018-11-18] MEDS: Acetaminophen SUPP* 650 MG SUPP PR PRN (20:37)
[2018-11-18] MEDS: Latanoprost 0.005%* 2.5 ml BTL BOTH EYES SCH (20:47)
[2018-11-19 05:54] LABS: INR 1.24 (0.82-1.09)
[2018-11-19] MEDS: Enoxaparin(*) 100 MG/ML SYR SUBCUT SCH (11:26)
[2018-11-19] MEDS: Pantoprazole IV* 40 MG IV SCH (11:26)
[2018-11-19] MEDS: Sertraline* 100 MG TAB PO SCH (11:37)
[2018-11-19] MEDS: Hydroxychloroquine TAB* 200 MG PEG TUBE SCH (11:39)
[2018-11-19] MEDS: Aspirin 81 mg CHEW TAB* 81 MG TAB.CHEW PEG TUBE SCH (11:39)
--- NOTE | 2018-11-19 14:43 | PN ---
Subjective Date of Service: 11/19/18 Interval History: No bloating, no abd pain, no nausea Tolerated 120 cc q 4 hrs since yesterday Feels he is coughing less He is concerned that he has lots of things to do and wants to get home to check email and attend to other chores He feels bored No somatic complaints Family History: Unchanged from Admission Social History: Unchanged from Admission Past Medical History: Unchanged from Admission Objective Active Medications: Acetaminophen (Tylenol Supp*) 650 mg MD Q4H PRN PRN Reason: MILD PAIN or TEMP > 100.4 Last Admin: 11/18/18 20:37 Dose: 650 mg Albuterol/Ipratropium (Duoneb (Albuterol 2.5 Mg/Ipratropium 0.5 Mg)) 1 neb INH [id number] AWAKE PRN PRN Reason: WHEEZING Aspirin (Aspirin 81 Mg Chew Tab*) 81 mg PEG TUBE DAILY [facility] Last Admin: 11/19/18 11:39 Dose: 81 mg Atorvastatin Calcium (Lipitor*) 10 mg PEG TUBE QPM [facility] Last Admin: 11/18/18 17:52 Dose: 10 mg Bisacodyl (Dulcolax Supp*) 10 mg MD DAILY PRN PRN Reason: no bm in 3 days Enoxaparin Sodium (Lovenox(*)) 90 mg SUBCUT Q12H [facility] Last Admin: 11/19/18 11:26 Dose: 90 mg Fluticasone Propionate (Flonase Nasal [place] 50mcg*) 2 spray BOTH NARES DAILY PRN PRN Reason: CONGESTION Hydroxychloroquine Sulfate (Plaquenil Tab*) 400 mg PEG TUBE DAILY [facility] Last Admin: 11/19/18 11:39 Dose: 400 mg Lactobacillus Rhamnosus (Lactobacillus Acidophilus*) 1 tab PO BID [facility] Latanoprost (Xalatan 0.005%*) 1 drop BOTH EYES BEDTIME [facility]; Protocol Last Admin: 11/18/18 20:47 Dose: 1 drop Ondansetron HCl (Zofran Inj*) 4 mg IV Q6H PRN PRN Reason: NAUSEA Pantoprazole Sodium (Protonix Iv*) 40 mg IV DAILY [facility] Last Admin: 11/19/18 11:26 Dose: 40 mg Sertraline HCl (Zoloft*) 150 mg PO DAILY [facility] Last Admin: 11/19/18 11:37 Dose: 150 mg Sodium Biphosphate/Sodium Phosphate (Fleet Enema*) 1 bottle MD DAILY PRN PRN Reason: CONSTIPATION Warfarin Sodium (Coumadin Tab(*)) 5 mg PEG TUBE SuMoWe@1700 [facility]; Protocol Warfarin Sodium (Coumadin Tab(*)) 2.5 mg PEG TUBE TuThFrSa@1700 [facility]; Protocol Last Admin: 11/18/18 17:52 Dose: 2.5 mg Vital Signs - 8 hr 11/19/18 11/19/18 11/19/18 07:40 08:00 12:00 Temperature 98.4 F 97.8 F Pulse Rate 82 78 Respiratory 18 17 17 Rate Blood Pressure 122/57 102/47 (mmHg) O2 Sat by Pulse 99 97 Oximetry Oxygen Devices in Use Now: None Appearance: lying in bed, NAD Eyes: No Scleral Icterus, PERRLA Ears/Nose/Mouth/Throat: NL Teeth, Lips, Gums, Clear Oropharnyx Neck: NL Appearance and Movements; NL JVP, Trachea Midline Respiratory: Symmetrical Chest Expansion and Respiratory Effort, Clear to Auscultation Cardiovascular: RRR Abdominal: NL Sounds; No Tenderness; No Distention, - - PEG in place, small amount of blood around edges but not actives bleeding/oozing, intact Extremities: No Edema Skin: No Rash or Ulcers Neurological: - - AOx2 to self and "hospital" but not [facility] and not year. Left arm /leg / strength Result Diagrams: 11/18/18 06:13 11/18/18 06:13 Microbiology and Other Data: Microbiology 11/01/18 14:30 Aerobic Blood Culture - Preliminary Blood Venous No Growth Day 1 Anaerobic Blood Culture - Preliminary No Growth Day 1 11/01/18 14:20 Aerobic Blood Culture - Preliminary Blood Venous No Growth Day 1 Anaerobic Blood Culture - Preliminary No Growth Day 1 11/02/18 05:26 Legionella Urinary Antigen - Final Urine Negative Legionella Antigen Streptococcus pneumoniae Ag Screen - Final Negative S. 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 Prior CT scan of the chest dated 06/19/2017 showed no change in the diameter the mid ascending aorta from today's study. Initial report created on 11/01/2018 9:52:39 PM EDT PROCEDURE INFORMATION: Exam: CT Chest With Contrast Exam date and time: 11/01/2018 8:42 PM Clinical history: 78 years old, male; Abdominal pain; Generalized; Other: Unknown; Additional info: Sepsis unknown origin ? pna vs intraabdominal path TECHNIQUE: Imaging protocol: Computed tomography of the chest with intravenous contrast. Radiation optimization: All CT scans at this facility use at least one of these dose optimization techniques: automated exposure control; mA and/or kV adjustment per patient size (includes targeted exams where dose is matched to clinical indication); or iterative reconstruction. Contrast material: OMNI 300; Contrast volume: 120 ml; Contrast route: IV; COMPARISON: C/A/P WO CT CHEST/ABD/PEL W/O 06/19/2017 2:04 PM FINDINGS: Limitations: Motion artifacts. Lungs: Consolidation of both lower lungs. The left lung being more involved than the right. Small lingular and right middle lung infiltrate. Pleural space: Small bilateral pleural effusions. No pneumothorax. Heart: Patient status post open heart surgery. Cardiac size is mildly enlarged. Severe coronary calcification. Mediastinum: No mediastinal mass. Small hiatal hernia. Aorta: Atheromatous changes involving the thoracic aorta. Ectasia of the ascending aorta. AP length of the mid ascending aorta is 4.2 cm. The AP length of the descending thoracic aorta at the level of the nohelia is 2.8 cm. Lymph nodes: No mediastinal adenopathy. Bones/joints: Degenerative changes of both shoulders. No overlapping rib fractures. Spondylotic changes of the thoracic spine. Soft tissues: Unremarkable. Stomach and bowel: Anterior confluent osteophyte formation from the cervical thoracic junction to the thoracolumbar junction. IMPRESSION: Bilateral lower lobe consolidation and small right middle lung and lingular infiltrates. The left lung being more involved than the right. This could represent a multilobar pneumonia. Small associated pleural effusions. Left greater than right. [facility] Patient Name:REYNALDO CRAMER MR:[id number] : 1940 PROCEDURE INFORMATION: Exam: CT Abdomen and Pelvis With Contrast Exam date and time: 11/01/2018 8:42 PM Clinical history: 78 years old, male; Abdominal pain; Generalized; Other: Unknown; Additional info: Sepsis unknown origin ? pna vs intraabdominal path TECHNIQUE: Imaging protocol: Computed tomography of the abdomen and pelvis with intravenous contrast. Radiation optimization: All CT scans at this facility use at least one of these dose optimization techniques: automated exposure control; mA and/or kV adjustment per patient size (includes targeted exams where dose is matched to clinical indication); or iterative reconstruction. Contrast material: OMNI 300; Contrast volume: 120 ml; Contrast route: IV; COMPARISON: C/A/P WO CT CHEST/ABD/PEL W/O 06/19/2017 2:04 PM FINDINGS: Liver: Normal. No mass. Gallbladder and bile ducts: Calcified stone located in the neck of the gallbladder. This was seen on prior CT scan dated 06/19/2017 and is unchanged in position. Pancreas: Normal. No ductal dilation. Spleen: Small punctate splenic calcification. The spleen is of normal size. Adrenals: Normal. No mass. Kidneys and ureters: Left renal cortical cyst measuring 3.9 cm in length. This has a density of 22 Hounsfield units. No hydronephrosis or nephrolithiasis. Stomach and bowel: No bowel obstruction. Diverticular changes involving the colon. No evidence of acute diverticulitis. Appendix: No evidence of appendicitis. Intraperitoneal space: Unremarkable. No free air. No significant fluid collection. Vasculature: Calcification of the wall of the abdominal aorta and iliac arteries. No aneurysm. Lymph nodes: Unremarkable. No enlarged lymph nodes. Bladder: Unremarkable as visualized. Reproductive: Unremarkable as visualized. Bones/joints: Spondylotic changes lumbar spine. Laminectomy from L3 to L5. No evidence of fracture or malalignment. Several threaded screws coursing through the left hip. Soft tissues: Unremarkable. Other findings: Limitation: Artifact created by the right arm. IMPRESSION: 1. No acute findings. 2. Cholelithiasis. Assess/Plan/Problems-Billing Assessment: Mr. Cramer is an 78 yo M with PMH of multiple CVAs, CAD, afib, HTN, and MDS; who presented to the ED with report of AMS, vomiting and fever and was found to have suspected aspiration pneumonia - Patient Problems (1) Acute respiratory failure Comment: suspicious for aspiration, though again cxr 11/10 looked like edema TTE with worsending sCHF (25-30% LVEF) and worsening Now on RA (2) Chronic systolic congestive heart failure Comment: with some evidence of mild volume overload on presentation - now resolved worsening sCHF carvedilol, statin, ASA -Holding aldactone for low BP reevalaute need for additional lasix daily (3) Dysphagia Comment: - Had an episode of aspiration on 11/03/18, suspect aspiration is the etiology for this admission overall - Failed swallow eval x2, discussed with SPECIAL TECHNICAL OPERATIONS OFFICER - PPN initiated as short term solution now with PEG (11/16) and enteral feeding started (4) MRSA pneumonia Comment: doxycycline day 12 11/17 - now stopped mrsa is not consistent with the history of aspiration; received clinda for anaerobic coverage, which will also cover mrsa - txed 6 days, stopped 11/17 repeat CXR 11/10 looked more like pulmonary edema than pneumonia (5) Myelodysplasia (myelodysplastic syndrome) Comment: counts are at baseline no signs of bleeding (6) Cerebrovascular accident Comment: MRI ruled out a 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 Plan on [facility] Tuesday
[2018-11-19] MEDS: Warfarin TAB(*) 5 MG PEG TUBE SCH (16:24)
[2018-11-19] MEDS: Atorvastatin* 10 MG TAB PEG TUBE SCH (16:57)
[2018-11-19] MEDS: Lactobacillus Acidophilus* 1 TAB PO SCH ×2 (16:57→21:31)
[2018-11-19] MEDS: Latanoprost 0.005%* 2.5 ml BTL BOTH EYES SCH (21:31)
--- NOTE | 2018-11-20 07:38 | PN ---
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 Oriented to self and place. Otherwise pleasant and well, bandage changed no e/o further bleeding, restart continuous TF. Family History: Unchanged from Admission Social History: Unchanged from Admission Past Medical History: Unchanged from Admission Objective Active Medications: Acetaminophen (Tylenol Supp*) 650 mg TN Q4H PRN PRN Reason: MILD PAIN or TEMP > 100.4 Last Admin: 11/18/18 20:37 Dose: 650 mg Albuterol/Ipratropium (Duoneb (Albuterol 2.5 Mg/Ipratropium 0.5 Mg)) 1 neb INH RT.C6PN-ANNRI AWAKE PRN PRN Reason: WHEEZING Aspirin (Aspirin 81 Mg Chew Tab*) 81 mg PEG TUBE DAILY [facility] Last Admin: 11/19/18 11:39 Dose: 81 mg Atorvastatin Calcium (Lipitor*) 10 mg PEG TUBE QPM [facility] Last Admin: 11/19/18 16:57 Dose: 10 mg Bisacodyl (Dulcolax Supp*) 10 mg TN DAILY PRN PRN Reason: no bm in 3 days Fluticasone Propionate (Flonase Nasal [place] 50mcg*) 2 spray BOTH NARES DAILY PRN PRN Reason: CONGESTION Hydroxychloroquine Sulfate (Plaquenil Tab*) 400 mg PEG TUBE DAILY [facility] Last Admin: 11/19/18 11:39 Dose: 400 mg Lactobacillus Rhamnosus (Lactobacillus Acidophilus*) 1 tab PO BID [facility] Last Admin: 11/19/18 21:31 Dose: 1 tab Latanoprost (Xalatan 0.005%*) 1 drop BOTH EYES BEDTIME [facility]; Protocol Last Admin: 11/19/18 21:31 Dose: 1 drop Ondansetron HCl (Zofran Inj*) 4 mg IV Q6H PRN PRN Reason: NAUSEA Pantoprazole Sodium (Protonix Iv*) 40 mg IV DAILY [facility] Last Admin: 11/19/18 11:26 Dose: 40 mg Sertraline HCl (Zoloft*) 150 mg PO DAILY [facility] Last Admin: 11/19/18 11:37 Dose: 150 mg Sodium Biphosphate/Sodium Phosphate (Fleet Enema*) 1 bottle TN DAILY PRN PRN Reason: CONSTIPATION Warfarin Sodium (Coumadin Tab(*)) 5 mg PEG TUBE SuMoWe@1700 [facility]; Protocol Last Admin: 11/19/18 16:24 Dose: 5 mg Warfarin Sodium (Coumadin Tab(*)) 2.5 mg PEG TUBE TuThFrSa@1700 [facility]; Protocol Last Admin: 11/18/18 17:52 Dose: 2.5 mg Vital Signs - 8 hr 11/20/18 04:00 Temperature 97.6 F Pulse Rate 85 Respiratory 20 Rate Blood Pressure 126/61 (mmHg) O2 Sat by Pulse 99 Oximetry Oxygen Devices in Use Now: None Appearance: Pleasant man in NAD, mild L side facial droop Eyes: No Scleral Icterus, PERRLA Ears/Nose/Mouth/Throat: Mucous Membranes Moist Neck: Trachea Midline Respiratory: - - Mild rhonchi and upper airway sounds, otherwsie clear Cardiovascular: NL Sounds; No Murmurs; No JVD, - - S1S2, Systolic murmur 2/6 Abdominal: NL Sounds; No Tenderness; No Distention, No Hepatosplenomegaly, - - PEG in place CDI, mild blood clot to base easily dislodged with no further bleeding Lymphatic: No Cervical Adenopathy Extremities: No Edema Neurological: - - Garbled speech, AOx2, follows comands Result Diagrams: 11/20/18 07:59 11/18/18 06:13 Microbiology and Other Data: Microbiology 11/01/18 14:30 Aerobic Blood Culture - Preliminary Blood Venous No Growth Day 1 Anaerobic Blood Culture - Preliminary No Growth Day 1 11/01/18 14:20 Aerobic Blood Culture - Preliminary Blood Venous No Growth Day 1 Anaerobic Blood Culture - Preliminary No Growth Day 1 11/02/18 05:26 Legionella Urinary Antigen - Final Urine Negative Legionella Antigen Streptococcus pneumoniae Ag Screen - Final Negative S. pneumo Antigen 11/01/18 19:27 Gram Stain - Final Sputum 11/01/18 23:12 Nasal Screen MRSA (PCR) - Final Nasal Mrsa Not Detected Assess/Plan/Problems-Billing Assessment: 78M PMH CVAs, CAD, afib on AC, HTN, and MDS, HFrEF (EF 30%), , RA on Plaquenil , Depression; who presented to the ED with acute hypoxic resp failure and sepsis 2/2 suspected aspiration pneumonia, hosptial stay c/b e/o oral dysphagia s/p PEG placement on 11/16. Active problems on 11/20, ongoing aspiration, mild bleeding from PEG site and subtherapeutic INR - Patient Problems (1) Dysphagia Current Visit: Yes Status: Acute Code(s): R13.10 - DYSPHAGIA, UNSPECIFIED SNOMED Code(s): 18133723 Comment: - Had an episode of aspiration on 11/03/18, suspect aspiration is the etiology for this admission overall - Failed swallow eval x2, discussed with MANUAL WRITER - PPN initiated as short term solution now with PEG (11/16) and enteral feeding started, changed to bolus feeds with aspiration even on 11/19 - Some bleeding around PEG tube site from being on AC with MDS. (2) Acute respiratory failure Current Visit: Yes Status: Acute Code(s): J96.00 - ACUTE RESPIRATORY FAILURE , UNSP W HYPOXIA OR HYPERCAPNIA SNOMED Code(s): 81083220 Comment: - Multifactorial aspiration PNA and HFrEF, - Now on RA (3) Multilobar lung infiltrate Current Visit: Yes Status: Acute Code(s): R91.8 - OTHER NONSPECIFIC ABNORMAL FINDING OF LUNG FIELD SNOMED Code(s): 3328038312289 Comment: - Resolved - Likely secondary to aspiration/vomitus prior to arrival with questioable coffee ground emesis - Sputum culture 11/01 and 11/03 growing MRSA, tx broadly, then narrowed to Doxy and lastly Clinda d/c on 11/17, total of 16 days - Completed abx course on 11/17 (4) Sepsis Current Visit: Yes Status: Acute Comment: - Resolved - Met criteria on admission with tachycardia and fever >103; source likely aspiration pneumonia - Blood cultures negative (5) Cerebrovascular accident Current Visit: Yes Status: Acute Priority: High Onset Date: 10/14/14 Code(s): I63.9 - CEREBRAL INFARCTION, UNSPECIFIED SNOMED Code(s): 808495047 Comment: - MRI ruled out a new CORROSION CONTROL SPECIALIST event that may have contributed to his dysphagia - on coumadin for multiple CVAs, bridging with Lovenox now (6) Chronic systolic congestive heart failure Current Visit: Yes Status: Acute Code(s): I50.22 - CHRONIC SYSTOLIC ( CONGESTIVE) HEART FAILURE SNOMED Code(s): 111409271 Comment: - Repeat Echo on 11/12 - with some evidence of mild volume overload on presentation - now resolved - carvedilol, statin, ASA - Holding aldactone for low BP - reevalaute need for additional lasix daily (7) Myelodysplasia (myelodysplastic syndrome) Current Visit: Yes Status: Acute Code(s): D46.9 - MYELODYSPLASTIC SYNDROME, UNSPECIFIED SNOMED Code(s): 149575294 Comment: - counts are at baseline - Mild bleeding post procedure 11/16 (8) Protein calorie malnutrition Current Visit: Yes Status: Acute Code(s): E46 - UNSPECIFIED PROTEIN-CALORIE MALNUTRITION SNOMED Code(s): 753234979 Comment: - Currently back on 60cc continuous, per report Jorge can deliver this (9) GERD (gastroesophageal reflux disease) Current Visit: No Status: Chronic Priority: Low Code(s): K21.9 - GASTRO- ESOPHAGEAL REFLUX DISEASE WITHOUT ESOPHAGITIS SNOMED Code(s): 215368196 Comment: - Continue pantoprazole (10) MARY (obstructive sleep apnea) Current Visit: No Status: Chronic Code(s): G47.33 - OBSTRUCTIVE SLEEP APNEA (ADULT) (PEDIATRIC) SNOMED Code(s): 90267469 Comment: - Currently untreated (11) Depression Current Visit: No Status: Acute Code(s): F32.9 - MAJOR DEPRESSIVE DISORDER, SINGLE EPISODE, UNSPECIFIED SNOMED Code(s): 37410729 Comment: - Continue sertraline (12) Gout Current Visit: No Status: Chronic Priority: Medium Onset Date: 10/31/13 Code(s): M10.9 - GOUT, UNSPECIFIED SNOMED Code(s): 23749963 Comment: - Hx of ? RA as well on plaquenil (13) DVT prophylaxis Current Visit: Yes Status: Acute Code(s): Z29.9 - ENCOUNTER FOR PROPHYLACTIC MEASURES, UNSPECIFIED SNOMED Code(s): 800637291 Comment: - Coumadin being bridged - repeat INR in AM 11/20 (14) DNR (do not resuscitate) Current Visit: Yes Status: Acute Comment: Status and Disposition: DC to [facility] today
[2018-11-20 08:25] LABS: Hematocrit 31 % (42-52); Hemoglobin 10.5 g/dL (14.0-18.0); Mean Corpuscular HGB Conc 34 g/dL (31-36); Mean Corpuscular Hemoglobin 30 pg (27-31); Mean Corpuscular Volume 88 fL (80-94); Mean Platelet Volume 11.3 fL (7.4-10.4); Platelet Count 87 10^3/uL (150-450); Red Blood Count 3.56 10^6 /uL (4.18-5.48); Red Cell Distribution Width 17 % (10-15); White Blood Count 3.3 10^3/uL (3.5-10.8)
[2018-11-20 08:28] LABS: INR 1.18 (0.82-1.09)
[2018-11-20 08:58] LABS: ABS Lymphocytes 0.7 10^3/ul (1.0-4.8); ABS Monocytes 0.3 10^3/ul (0-0.8); ABS Neutrophils 2.3 10^3/ul (1.5-7.7); Nucleated Red Blood Cells % 0.1; Polychromasia 1+
[2018-11-20] MEDS: Sertraline* 100 MG TAB PO SCH (09:08)
[2018-11-20] MEDS: Lactobacillus Acidophilus* 1 TAB PO SCH ×2 (09:08→21:23)
[2018-11-20] MEDS: Aspirin 81 mg CHEW TAB* 81 MG TAB.CHEW PEG TUBE SCH (09:08)
[2018-11-20] MEDS: Hydroxychloroquine TAB* 200 MG PEG TUBE SCH (09:08)
[2018-11-20] MEDS: Pantoprazole IV* 40 MG IV SCH (09:09)
[2018-11-20] MEDS: Enoxaparin(*) 80 MG/0.8 ML SYR SUBCUT SCH ×2 (11:07→21:23)
--- NOTE | 2018-11-20 16:47 | DS ---
CC: Dr. Mattie Drew * DISCHARGE SUMMARY: DATE OF ADMISSION: 11/01/18 DATE OF DISCHARGE: 11/21/18 PRIMARY CARE PROVIDER: Dr. Mattie Drew. DISPOSITION AT THE TIME OF DISCHARGE: Stable to return to [facility] where the patient was formerly engaged in short term PRIMARY DIAGNOSES: 1. Hypoxic respiratory failure secondary to aspiration pneumonia. 2. Sepsis, resolved. 3. Dysphagia, status post PEG tube placement. SECONDARY DIAGNOSES: 1. History of cerebrovascular accident with residual speech deficit. 2. Vascular dementia 3. Coronary artery disease. 4. Atrial fibrillation, on anticoagulation. 5. Hypertension. 6. Myelodysplastic syndrome with chronic pancytopenia. 7. Heart failure with reduced ejection fraction, ejection fraction of 30%. 8. Aortic stenosis. 9. Rheumatoid Arthritis MEDICATIONS AT THE TIME OF DISCHARGE: 1. Aspirin 81 mg per PEG tube daily. 2. Albuterol ipratropium neb solutions 1 neb q.4 hours p.r.n. while awake. 3. Acetaminophen 650 mg per PEG tube q.4 hours p.r.n. for pain, alternatively could trial per rectum if needed 4. Atorvastatin 10 mg per PEG tube q.p.m. 5. Bisacodyl suppository 10 mg per rectum daily p.r.n. for no bowel movement for 3 days. 6. Enoxaparin 90 mg subcutaneous q.12 hours for an additional 3 days status post discharge or an INR of greater than 2, whichever comes first. 7. Fluticasone nasal spray 2 sprays both nares daily. 8. Plaquenil 400 mg per PEG tube daily. 9. Lactobacillus acidophilus 1 tab per PEG tube b.i.d. 10. Sertraline 150 mg per PEG tube daily. 11. Sodium phosphate adult enema 1 bottle per rectum daily p.r.n. for severe constipation. 12. Travatan ophthalmic solution 1 drop both eyes at bedtime. 13. Warfarin 5 mg Tuesday, Tuesday, Tuesday per PEG tube, and 2.5 mg per PEG tube Tuesday, , Tuesday, Tuesday. 14. PreserVision AREDS 2 softgels 1 tab per PEG tube b.i.d. 15. Senna tab 2 tabs per PEG tube p.r.n. daily for constipation. 16. Saline nasal spray 1 spray both nares q.4 hours p.r.n. for congestion. 17. Polyethylene glycol 17 g per PEG tube every other day. 18. Ondansetron tab 4 mg per PEG tube q.8 hours p.r.n. for nausea. 19. Omeprazole 20 mg per PEG tube daily. 20. Multivitamin 1 tab per PEG tube daily. 21. Mouth tonic rinse p.o. b.i.d. p.r.n. 22. Melatonin 1 tab per PEG tube at bedtime. 23. Ketoconazole 1 application topically b.i.d. p.r.n. for nile. 24. Ferrous sulfate 325 mg per PEG every other day. 25. Diphenhydramine 25 mg per PEG q.4 hours p.r.n. for allergy symptoms. 26. Vitamin B12 1000 mcg per PEG tube daily. 27. Vitamin D 1000 units per PEG tube every other day. 28. Carvedilol 1.5625 mg per PEG tube b.i.d. 29. Ascorbic acid 500 mg per PEG tube every other day. Medications that are new on this discharge include the addition of enoxaparin 90 mg subcutaneous q.12 hours for bridge while subtherapeutic INR. Otherwise, all medications that were formerly oral are transferred to PEG tube status. DIET AT THE TIME OF DISCHARGE: Tube feedings, enteral 60 cc continuous through PEG tube and can attempt to place to bolus with a goal of 240 cc q.4 hours of Jevity whichever the patient tolerates. Of note, the patient has tolerated continuous tube feeds more readily in the hospital, although may be changed to bolus at discretion of primary providers, otherwise n.p.o., also flush with 30 mL of free water q.4 hours in between intermittent tube feeds. HOSPITAL COURSE AND HISTORY OF PRESENT ILLNESS: An 78-year-old male with above medical history who presented on 11/01/18 from [facility] with shortness of breath, cough, fever, and feeling unwell for approximately 10 days. He had been struggling with intermittent nausea and vomiting and constipation, requiring large doses of laxatives and had an aspiration event that ultimately was found to show aspiration pneumonia to the right lung. He initially presented with sepsis with a temperature of 103.9, tachycardic to the 120s and hypoxia requiring 10 L of oxygen. He was admitted to the hospital and his hospital course by problem is as follows: 1. Sepsis. This is secondary to his pneumonia, which was likely from aspiration. He was placed on broad-spectrum antibiotics and received a total of 16 days. His sepsis resolved within 24 hours. He received sepsis bolus and lactate trended down by hospital day 2. 2. Acute hypoxic respiratory failure. This is likely from aspiration pneumonia. Also, there was some evidence that he had small CHF exacerbation along with his aspiration contributing to his acute respiratory failure and he was diuresed gradually over the course of his hospital stay. He weaned off oxygen completely and has been tolerating room air for 4 days prior to discharge. 3. Multilobar lung infiltrate. This was secondary to aspiration of vomitus prior to arrival. Sputum culture did end up growing MRSA. He was treated broadly for a total of 16 days and completed antibiotics on 11/17/18. 4. CVA. The patient has history of CVAs with cognitive dementia at baseline as well as garbled speech. An MRI was performed on this hospitalization, which ruled out a new FIRE ALARM DISPATCHER event that may have contributed to his dysphagia. He is on Coumadin for multiple CVAs. His INR at time of discharge is 1.18 and he is bridged currently on Lovenox and should have daily INRs at discharge until INR goal of 2 to 3 with continued Lovenox bridging until that goal is met. 5. Heart failure with reduced ejection fraction. He had a repeat echocardiogram on 11/12/18 that showed EF of 30%. He had mild volume overload on presentation that was since resolved. He is on carvedilol, statin and aspirin. His Aldactone was held for low blood pressure and can be resumed as an outpatient and he may need to be reevaluated for Lasix as needed. 6. Dysphagia. The patient had significant oropharyngeal dysphagia and Speech has found him unable to coordinate safe swallowing. He failed the swallow eval x2, and in discussion with Speech and family, family felt that they wanted a short-term solution with PEG insertion, which was done on 11/16/18 and enteral feeding was started. He was changed to bolus feeds, but he had an aspirative event and residual on 11/19/18 and thus he was put back on continuous tube feeds at 60 cc. He had mild bleeding around his PEG tube site, which was thought to be from being on anticoagulation and also in the setting of MDS which keeps his platelets low. His pressure bandage was applied for 24 hours and he had no further bleeding on 11/20/18. He had no significant drop in his H and H and generally was tolerating tube feeds well on continuous. The hope was that he would regain some semblance of improved swallowing, although he will need to be seen by Speech Therapy while in half-way and to determine if his overall weakness was the cause of his worsening dysphagia or if this is his new baseline. Multiple conversations were had with the family regarding his goals of care, which were reversed to trial this temporary PEG, and Palliative was even consulted in this process and ultimately, the patient and his understand that the PEG tube does not lower the risk of aspirative events, although it was done as a means of temporary nutrition during a point of which the patient was hoped to regain some control of his oropharyngeal muscles. If the thought was that they were decompensated by him being weak prior to admission, he has made mild strides in terms of his awareness and cognition since improvement and treatment of his pneumonia and generally seems to be tolerating the PEG tube well. 7. Myelodysplasia. His counts are at baseline. He had mild bleeding post procedure on 11/16/18 that was stopped on 11/20/18. 8. GERD. He is on pantoprazole. 9. MARY. He is currently untreated. 10. Depression. His home sertraline was continued. 11. Rheumatoid arthritis/gout. He is on Plaquenil, which was continued. 12. Stroke risk/DVT prophylaxis. His Coumadin is currently being bridged. INR on 11/20/18 shows 1.18 which is subtherapeutic, goal is 2 to 3. He is currently being bridged on Lovenox, should be continued at [place] with daily INRs, which we recommend. 13. Change in feeding status. The patient is now on Jevity 60 cc per hour or can be trialed for bolus at 240 cc q.4 hours, whichever the patient tolerates best. Thus far, he has tolerated continuous. Furthermore, he should get free water flushes of 30 cc per q.4 hours to meet his free water needs. He needs to be reevaluated by a Speech Therapy weekly and be challenged with swallow testing. On day of discharge, the patient answers questions appropriately with some garbled speech. His n[place]qs[place] language is not Frisian, but he tells me that he is in the hospital, his full name and date of . He is pleasant and well. Bandage is changed with no evidence of further bleeding. He is moving bowels, with last BM day of discharge 11/21 and tolerating tube feeds. LABS AND STUDIES DONE DURING THIS HOSPITALIZATION: Labs on day of discharge: White blood cell count 3.3, hemoglobin 10.5, hematocrit 31, platelets 87. INR is 1.18. Last BMP was done on 11/18/18 which was unremarkable other than mildly elevated blood glucose of 159. Micro showed no growth to date in terms of blood cultures from 11/01/18. His sputum culture from 11/01/18 ended up growing MRSA. Urine culture was negative for Strep pneumo or legionella in terms of pneumonia risk and no other micro was done. Imaging included chest x-ray on 11/01/18 showing multilobar pneumonia, 11/01/[address], which showed no acute intracranial pathology; abdominal x-ray on 11/01 showed no acute patch of distended gas loops with no evidence of small bowel obstruction. On 11/01/18, chest, abdomen and pelvis CT showed no acute findings and cholelithiasis with no evidence of cholecystitis. Brain MRI on showed no restricted diffusion to suggest an acute infarct and extensive chronic small vessel ischemic changes consistent with multifocal remote infarcts as well as bilateral mild mastoid effusion. Echocardiogram done on 11/12/18 showed EF of 25% to 30% with multiple regional wall motional abnormalities, moderate aortic stenosis. CONSULTANTS DURING THIS HOSPITALIZATION: Included Neurology, Palliative and GI. PEG tube was placed on 11/16/18 uneventfully. ITEMS TO FOLLOW UP ON STATUS POST DISCHARGE: 1. Dysphagia. The patient had decompensation in his ability to swallow and now is tolerating enteral feeding only as he had frequent aspirations. Whether this dysphagia was prompted by his ileus and inability to keep fluids down 10 days prior to his admission with associated weakness versus progression in his underlying neurologic status is yet to be determined at this time. Multiple discussions were had with the family and they elected for temporary PEG tube placement and ongoing speech language evaluation to determine his swallowing. Until then, he should be kept on 60 cc of Jevity continuous with 30 cc of water flush to keep up with his nutritional needs. - He needs orders for speech therapy, PT to continue 2. Low INR. His Coumadin was held in the setting of his PEG tube, which was placed on 11/16/18. He is being bridged on Lovenox and can continue until his INR is greater than 2 and would suggest INRs daily to meet this goal. 3. Goals of care. Again, discussion with and family revealed that he would want temporary trial of PEG tube, although if his ability to swallow does not return, further goals of care discussion should be held with this patient and his family to discuss his overall desire for long-term enteral feeding. This discharge summary is a summary of complex stay of total of 20 days on 11/21 and is intended to reflect major walsh points. If there are questions or specifics, please do not hesitate to reach out and contact us directly, my cellphone number is [phone]. TIME SPENT: Forty-five minutes was spent on the planning of this discharge with over half of that was spent directly at the bedside of the patient providing direct patient care. [id number]/CPS #: [id number] DIEGO
[2018-11-20] MEDS: Acetaminophen SUPP* 650 MG SUPP PR PRN (17:55)
[2018-11-20] MEDS: Atorvastatin* 10 MG TAB PEG TUBE SCH (17:55)
[2018-11-20] MEDS: Warfarin TAB(*) 5 MG PEG TUBE SCH (17:55)
[2018-11-20] MEDS: Latanoprost 0.005%* 2.5 ml BTL BOTH EYES SCH (21:22)
--- NOTE | 2018-11-21 07:52 | PN ---
Subjective Date of Service: 11/21/18 Interval History: HD 20 on 11/21 78M PMH CVAs, CAD, afib on AC, HTN, and MDS, HFrEF (EF 30%), ; who presented to the ED with acute hypoxic resp failure and sepsis 2/2 suspected aspiration pneumonia, hospital stay c/b e/o oral dysphagia s/p PEG placement on 11/16 Overnight, no acute events, VSS Labs:Pending, Glu remains high This morning resting quietly, no complaints, plan for dc today, long discussion with who has concerns, she is afraid he will once again aspirate, we discuss preventative measures. Family History: Unchanged from Admission Social History: Unchanged from Admission Past Medical History: Unchanged from Admission Objective Active Medications: Acetaminophen (Tylenol Supp*) 650 mg LA Q4H PRN PRN Reason: MILD PAIN or TEMP > 100.4 Last Admin: 11/20/18 17:55 Dose: 650 mg Albuterol/Ipratropium (Duoneb (Albuterol 2.5 Mg/Ipratropium 0.5 Mg)) 1 neb INH [id number] AWAKE PRN PRN Reason: WHEEZING Aspirin (Aspirin 81 Mg Chew Tab*) 81 mg PEG TUBE DAILY [facility] Last Admin: 11/20/18 09:08 Dose: 81 mg Atorvastatin Calcium (Lipitor*) 10 mg PEG TUBE QPM [facility] Last Admin: 11/20/18 17:55 Dose: 10 mg Bisacodyl (Dulcolax Supp*) 10 mg LA DAILY PRN PRN Reason: no bm in 3 days Enoxaparin Sodium (Lovenox(*)) 80 mg SUBCUT Q12H [facility] Last Admin: 11/20/18 21:23 Dose: 80 mg Fluticasone Propionate (Flonase Nasal [place] 50mcg*) 2 spray BOTH NARES DAILY PRN PRN Reason: CONGESTION Hydroxychloroquine Sulfate (Plaquenil Tab*) 400 mg PEG TUBE DAILY [facility] Last Admin: 11/20/18 09:08 Dose: 400 mg Lactobacillus Rhamnosus (Lactobacillus Acidophilus*) 1 tab PO BID [facility] Last Admin: 11/20/18 21:23 Dose: 1 tab Latanoprost (Xalatan 0.005%*) 1 drop BOTH EYES BEDTIME [place]; Protocol Last Admin: 11/20/18 21:22 Dose: 1 drop Ondansetron HCl (Zofran Inj*) 4 mg IV Q6H PRN PRN Reason: NAUSEA Last Admin: 11/20/18 17:55 Dose: 4 mg Pantoprazole Sodium (Protonix Iv*) 40 mg IV DAILY [facility] Last Admin: 11/20/18 09:09 Dose: 40 mg Sertraline HCl (Zoloft*) 150 mg PO DAILY [facility] Last Admin: 11/20/18 09:08 Dose: 150 mg Sodium Biphosphate/Sodium Phosphate (Fleet Enema*) 1 bottle LA DAILY PRN PRN Reason: CONSTIPATION Warfarin Sodium (Coumadin Tab(*)) 5 mg PEG TUBE SuMoWe@1700 [facility]; Protocol Last Admin: 11/20/18 17:55 Dose: 5 mg Warfarin Sodium (Coumadin Tab(*)) 2.5 mg PEG TUBE TuThFrSa@1700 [facility]; Protocol Last Admin: 11/18/18 17:52 Dose: 2.5 mg Vital Signs - 8 hr 11/21/18 11/21/18 00:00 03:31 Temperature 97.9 F 97.3 F Pulse Rate 89 89 Respiratory 22 20 Rate Blood Pressure 110/44 109/53 (mmHg) O2 Sat by Pulse 93 92 Oximetry Oxygen Devices in Use Now: None Appearance: Pleasant and well Neck: NL Appearance and Movements; NL JVP Respiratory: Symmetrical Chest Expansion and Respiratory Effort, Clear to Auscultation Cardiovascular: - - Systolic heart murmuc Abdominal: NL Sounds; No Tenderness; No Distention, - - PEG Lymphatic: No Cervical Adenopathy Extremities: No Edema Skin: No Rash or Ulcers Neurological: - - Oriented to self Result Diagrams: 11/20/18 07:59 11/18/18 06:13 Microbiology and Other Data: Microbiology 11/01/18 14:30 Aerobic Blood Culture - Preliminary Blood Venous No Growth Day 1 Anaerobic Blood Culture - Preliminary No Growth Day 1 11/01/18 14:20 Aerobic Blood Culture - Preliminary Blood Venous No Growth Day 1 Anaerobic Blood Culture - Preliminary No Growth Day 1 11/02/18 05:26 Legionella Urinary Antigen - Final Urine Negative Legionella Antigen Streptococcus pneumoniae Ag Screen - Final Negative S. pneumo Antigen 11/01/18 19:27 Gram Stain - Final Sputum 11/01/18 23:12 Nasal Screen MRSA (PCR) - Final Nasal Mrsa Not Detected Diagnostic Imaging: Patient Name: REYNALDO FREEMAN Medical Record#: [id number] Ordering Physician: Slade WAITE Acct.#: [id number] : 1940 Age: 78 Sex: M Location: [facility] Exam Date: 11/01/181920 ADM Status: ADM IN Order Information: CT CHEST/ABD/PEL W Accession Number: [id number] CPT: 87317 ADDENDUM Addendum created by Easton Uriostegui MD on 11/02/2018 12:56:53 AM EDT Recommend followup of the thoracic arch ectasia per institutional guidelines. Prior CT scan of the chest dated 06/19/2017 showed no change in the diameter the mid ascending aorta from today's study. Initial report created on 11/01/2018 9:52:39 PM EDT PROCEDURE INFORMATION: Exam: CT Chest With Contrast Exam date and time: 11/01/2018 8:42 PM Clinical history: 78 years old, male; Abdominal pain; Generalized; Other: Unknown; Additional info: Sepsis unknown origin ? pna vs intraabdominal path TECHNIQUE: Imaging protocol: Computed tomography of the chest with intravenous contrast. Radiation optimization: All CT scans at this facility use at least one of these dose optimization techniques: automated exposure control; mA and/or kV adjustment per patient size (includes targeted exams where dose is matched to clinical indication); or iterative reconstruction. Contrast material: OMNI 300; Contrast volume: 120 ml; Contrast route: IV; COMPARISON: C/A/P WO CT CHEST/ABD/PEL W/O 06/19/2017 2:04 PM FINDINGS: Limitations: Motion artifacts. Lungs: Consolidation of both lower lungs. The left lung being more involved than the right. Small lingular and right middle lung infiltrate. Pleural space: Small bilateral pleural effusions. No pneumothorax. Heart: Patient status post open heart surgery. Cardiac size is mildly enlarged. Severe coronary calcification. Mediastinum: No mediastinal mass. Small hiatal hernia. Aorta: Atheromatous changes involving the thoracic aorta. Ectasia of the ascending aorta. AP length of the mid ascending aorta is 4.2 cm. The AP length of the descending thoracic aorta at the level of the nohelia is 2.8 cm. Lymph nodes: No mediastinal adenopathy. Bones/joints: Degenerative changes of both shoulders. No overlapping rib fractures. Spondylotic changes of the thoracic spine. Soft tissues: Unremarkable. Stomach and bowel: Anterior confluent osteophyte formation from the cervical thoracic junction to the thoracolumbar junction. IMPRESSION: Bilateral lower lobe consolidation and small right middle lung and lingular infiltrates. The left lung being more involved than the right. This could represent a multilobar pneumonia. Small associated pleural effusions. Left greater than right. [facility] Patient Name:REYNALDO FREEMAN MR:[id number] : 1940 PROCEDURE INFORMATION: Exam: CT Abdomen and Pelvis With Contrast Exam date and time: 11/01/2018 8:42 PM Clinical history: 78 years old, male; Abdominal pain; Generalized; Other: Unknown; Additional info: Sepsis unknown origin ? pna vs intraabdominal path TECHNIQUE: Imaging protocol: Computed tomography of the abdomen and pelvis with intravenous contrast. Radiation optimization: All CT scans at this facility use at least one of these dose optimization techniques: automated exposure control; mA and/or kV adjustment per patient size (includes targeted exams where dose is matched to clinical indication); or iterative reconstruction. Contrast material: OMNI 300; Contrast volume: 120 ml; Contrast route: IV; COMPARISON: C/A/P WO CT CHEST/ABD/PEL W/O 06/19/2017 2:04 PM FINDINGS: Liver: Normal. No mass. Gallbladder and bile ducts: Calcified stone located in the neck of the gallbladder. This was seen on prior CT scan dated 06/19/2017 and is unchanged in position. Pancreas: Normal. No ductal dilation. Spleen: Small punctate splenic calcification. The spleen is of normal size. Adrenals: Normal. No mass. Kidneys and ureters: Left renal cortical cyst measuring 3.9 cm in length. This has a density of 22 Hounsfield units. No hydronephrosis or nephrolithiasis. Stomach and bowel: No bowel obstruction. Diverticular changes involving the colon. No evidence of acute diverticulitis. Appendix: No evidence of appendicitis. Intraperitoneal space: Unremarkable. No free air. No significant fluid collection. Vasculature: Calcification of the wall of the abdominal aorta and iliac arteries. No aneurysm. Lymph nodes: Unremarkable. No enlarged lymph nodes. Bladder: Unremarkable as visualized. Reproductive: Unremarkable as visualized. Bones/joints: Spondylotic changes lumbar spine. Laminectomy from L3 to L5. No evidence of fracture or malalignment. Several threaded screws coursing through the left hip. Soft tissues: Unremarkable. Other findings: Limitation: Artifact created by the right arm. IMPRESSION: 1. No acute findings. 2. Cholelithiasis. Assess/Plan/Problems-Billing Assessment: 78M PMH CVAs, CAD, afib on AC, HTN, and MDS, HFrEF (EF 30%), , RA on Plaquenil , Depression; who presented to the ED with acute hypoxic resp failure and sepsis 2/2 suspected aspiration pneumonia, hosptial stay c/b e/o oral dysphagia s/p PEG placement on 11/16. Active problems on 11/20, ongoing aspiration, mild bleeding from PEG site and subtherapeutic INR - Patient Problems (1) Dysphagia Status: Acute Code(s): R13.10 - DYSPHAGIA, UNSPECIFIED SNOMED Code(s): 56890418 Comment: - Had an episode of aspiration on 11/03/18, suspect aspiration is the etiology for this admission overall - Failed swallow eval x2, discussed with MOTOR SCOOTER MECHANIC - PPN initiated as short term solution now with PEG (11/16) and enteral feeding started, changed to bolus feeds with aspiration even on 11/19 - Some bleeding around PEG tube site from being on AC with MDS. - Needs MOTOR SCOOTER MECHANIC to follow as outpt (2) Acute respiratory failure Status: Acute Code(s): J96.00 - ACUTE RESPIRATORY FAILURE, UNSP W HYPOXIA OR HYPERCAPNIA SNOMED Code(s): 09157024 Comment: - Multifactorial aspiration PNA and HFrEF, - Now on RA (3) Multilobar lung infiltrate Status: Acute Code(s): R91.8 - OTHER NONSPECIFIC ABNORMAL FINDING OF LUNG FIELD SNOMED Code(s): 2323577091548 Comment: - Resolved - Likely secondary to aspiration/vomitus prior to arrival with questioable coffee ground emesis - Sputum culture 11/01 and 11/03 growing MRSA, tx broadly, then narrowed to Doxy and lastly Clinda d/c on 11/17, total of 16 days - Completed abx course on 11/17 (4) Sepsis Status: Acute Comment: - Resolved - Met criteria on admission with tachycardia and fever >103; source likely aspiration pneumonia - Blood cultures negative (5) Cerebrovascular accident Status: Acute Priority: High Onset Date: 10/14/14 Code(s): I63.9 - CEREBRAL INFARCTION, UNSPECIFIED SNOMED Code(s): 250064524 Comment: - MRI ruled out a new [employer]CHIT[employer] event that may have contributed to his dysphagia - on coumadin for multiple CVAs, bridging with Lovenox now (6) Chronic systolic congestive heart failure Status: Acute Code(s): I50.22 - CHRONIC SYSTOLIC (CONGESTIVE) HEART FAILURE SNOMED Code(s): 095201704 Comment: - Repeat Echo on 11/12 - with some evidence of mild volume overload on presentation - now resolved - carvedilol, statin, ASA - Holding aldactone for low BP - reevalaute need for additional lasix daily (7) Myelodysplasia (myelodysplastic syndrome) Status: Acute Code(s): D46.9 - MYELODYSPLASTIC SYNDROME, UNSPECIFIED SNOMED Code(s): 137406996 Comment: - counts are at baseline - Mild bleeding post procedure 11/16 (8) Protein calorie malnutrition Status: Acute Code(s): E46 - UNSPECIFIED PROTEIN-CALORIE MALNUTRITION SNOMED Code(s): 486499251 Comment: - Currently back on 60cc continuous, per report Jorge can deliver this - Check A1C today given hypergly with initating TF (9) GERD (gastroesophageal reflux disease) Status: Chronic Priority: Low Code(s): K21.9 - GASTRO-ESOPHAGEAL REFLUX DISEASE WITHOUT ESOPHAGITIS SNOMED Code(s): 272450104 Comment: - Continue pantoprazole (10) MARY (obstructive sleep apnea) Status: Chronic Code(s): G47.33 - OBSTRUCTIVE SLEEP APNEA (ADULT) (PEDIATRIC) SNOMED Code(s): 58520941 Comment: - Currently untreated (11) Depression Status: Acute Code(s): F32.9 - MAJOR DEPRESSIVE DISORDER, SINGLE EPISODE, UNSPECIFIED SNOMED Code(s): 06508614 Comment: - Continue sertraline (12) Gout Status: Chronic Priority: Medium Onset Date: 10/31/13 Code(s): M10.9 - GOUT, UNSPECIFIED SNOMED Code(s): 75154221 Comment: - Hx of ? RA as well on plaquenil (13) DVT prophylaxis Status: Acute Code(s): Z29.9 - ENCOUNTER FOR PROPHYLACTIC MEASURES, UNSPECIFIED SNOMED Code(s): 914432906 Comment: - Coumadin being bridged - repeat INR in AM 11/21 (14) DNR (do not resuscitate) Status: Acute Comment: Status and Disposition: DC to [facility] today
[2018-11-21] MEDS: Sertraline* 100 MG TAB PO SCH (08:41)
[2018-11-21] MEDS: Lactobacillus Acidophilus* 1 TAB PO SCH (08:41)
[2018-11-21] MEDS: Hydroxychloroquine TAB* 200 MG PEG TUBE SCH (08:41)
[2018-11-21] MEDS: Aspirin 81 mg CHEW TAB* 81 MG TAB.CHEW PEG TUBE SCH (08:41)
[2018-11-21] MEDS: Pantoprazole IV* 40 MG IV SCH (08:41)
[2018-11-21] MEDS: Enoxaparin(*) 80 MG/0.8 ML SYR SUBCUT SCH (10:06)
[2018-11-21 12:16] VITALS: BP 104/52
== END 2018-11-21 13:20 | DRG 871 ==
LOC: ED 14:04 → ICU 19:07 → MEDTELE 11-04 12:50
PROVIDERS: ADMIT Internal Medicine; ATTEND Internal Medicine
PROC: 4A00X4Z Measurement of Central Nervous Electrical Activity, External Approach (ICD-10-PCS; 2018-11-02)
PROC: 0DH63UZ Insertion of Feeding Device into Stomach, Percutaneous Approach (ICD-10-PCS; principal; 2018-11-15)
DX: A41.9 Sepsis, unspecified organism (principal); J96.01 Acute respiratory failure with hypoxia; J69.0 Pneumonitis due to inhalation of food and vomit; J15.212 Pneumonia due to Methicillin resistant Staphylococcus aureus; I50.22 Chronic systolic (congestive) heart failure; E46 Unspecified protein-calorie malnutrition; E78.00 Pure hypercholesterolemia, unspecified; I25.10 Atherosclerotic heart disease of native coronary artery without angina pectoris; I44.7 Left bundle-branch block, unspecified; J30.2 Other seasonal allergic rhinitis; K21.9 Gastro-esophageal reflux disease without esophagitis; N40.0 Benign prostatic hyperplasia without lower urinary tract symptoms; F01.50 Vascular dementia, unspecified severity, without behavioral disturbance, psychotic disturbance, mood disturbance, and anxiety; K59.00 Constipation, unspecified; I11.0 Hypertensive heart disease with heart failure; H35.30 Unspecified macular degeneration; H40.9 Unspecified glaucoma; M48.00 Spinal stenosis, site unspecified; K80.20 Calculus of gallbladder without cholecystitis without obstruction; E78.5 Hyperlipidemia, unspecified; D46.9 Myelodysplastic syndrome, unspecified; K29.70 Gastritis, unspecified, without bleeding; R13.10 Dysphagia, unspecified; F32.9 Major depressive disorder, single episode, unspecified; I48.91 Unspecified atrial fibrillation; G47.33 Obstructive sleep apnea (adult) (pediatric); M10.9 Gout, unspecified; H53.469 Homonymous bilateral field defects, unspecified side; I35.0 Nonrheumatic aortic (valve) stenosis; E66.9 Obesity, unspecified; M06.9 Rheumatoid arthritis, unspecified; Z66 Do not resuscitate; Z88.1 Allergy status to other antibiotic agents; Z91.011 Allergy to milk products; Z91.018 Allergy to other foods; Z91.013 Allergy to seafood; Z87.442 Personal history of urinary calculi; Z85.46 Personal history of malignant neoplasm of prostate; Z85.830 Personal history of malignant neoplasm of bone; Z86.19 Personal history of other infectious and parasitic diseases; Z95.1 Presence of aortocoronary bypass graft; Z90.79 Acquired absence of other genital organ(s); Z98.49 Cataract extraction status, unspecified eye; I69.328 Other speech and language deficits following cerebral infarction; Z87.891 Personal history of nicotine dependence; Z72.89 Other problems related to lifestyle; Z68.38 Body mass index [BMI] 38.0-38.9, adult; Z79.82 Long term (current) use of aspirin
CPT/HCPCS: 36415; 36600; 70450; 70551; 71045; 71260; 74019; 74177; 74230; 80048; 80053; 80076; 81003; 82465; 82550; 82803; 83036; 83519; 83520; 83605; 83735; 83880; 84100; 84134; 84478; 84484; 85025; 85060; 85384; 85610; 85652; 85730; 86140; 87040; 87070; 87077; 87186; 87205; 87641; 87899; 93005; 93306; 94640; 94667; 94668; 95819; 99156; 99157; 99285; A9270-GY; C8929; G8978-GP-CL; G8979-GP-CJ; J0330; J0610; J0692; J1650; J1940; J2020; J2250; J2405; J2543; J3010; J3475; J3480

== ENCOUNTER 2018-11-21 21:50 | Inpatient (IN) | payer OTHER ==
--- OUTSIDE RECORDS SUMMARY | 2018-11-21 22:35 | XMS REPORT | Continuity of Care Document ---
:1940 External Reference #:[id number] Author Name Margarita Gurrola M.D. (transmitted by agent of provider April Christopher) Address [address] [place] [address] Care Team Providers Name Role Phone Mattie Drew MD - Internal Medicine Care Team Information Coffee Farmer [phone] Problems Active Problems Provider Date Ischemic stroke Kayleigh Fernandes M.D. Onset: 01/16/2014 Note: recurrent Spasticity Kayleigh Fernandes M.D. Onset: 06/03/2014 Hemiparesis Kayleigh Fernandes M.D. Onset: 06/03/2014 Disturbance in sleep behavior Timmy Lobo M.D. Onset: 11/28/2014 Essential hypertension Timmy Lobo M.D. Onset: 11/28/2014 Late effects of cerebrovascular Timmy Lobo M.D. Onset: 01/23/2015 disease Obstructive sleep apnea syndrome Timmy Lobo M.D. Onset: 01/30/2015 Hypersomnia Coni Estevez DNP, RN, Onset: 06/10/2015 AMBULATORY ANALYST- Closed fracture of neck of femur Autumn Pearl MD Onset: 11/02/2016 Social History Type Date Description Comments Sex Unknown Tobacco Use Start: Unknown End: Former Cigarette Smoker Unknown ETOH Use Rarely consumes alcohol Tobacco Use Start: Unknown End: Patient is a former [employer] in graduate Unknown smoker school Recreational Drug Use Denies Drug Use Smoking Status Reviewed: 09/01/18 Patient is a former [employer] graduate smoker school Exercise Type/Frequency Exercises regularly PT 6 times a week 2 times a day Allergies, Adverse Reactions, Alerts Active Allergies Reaction Severity Comments Date Shellfish-derived Products 08/03/2012 Walnuts 01/16/2014 Lactose (Intolerance) 10/02/2014 Inactive Allergies NKDA 04/24/2012 Medications Active Medications SIG Qnty Indications Ordering Date Provider [facility] Melatonin 1 tab by mouth every Kayleigh Carrilloperbrianna, 3mg bedtime M.D. 9 Tablets Thumb Brace please use daily to 2units Clifford Popr, Misc stabilize thumb due M.D. 9 to pain from carpometacarpal arthritis on the right (keep snug) icd9 715.14 Plaquenil 1 by mouth every day 60tabs Clifford Fisherdor, 200mg Tablets for 1 week then 2 by M.DAleksandar 8 mouth daily ongoing Senna Laxative 1-2 tabs twice a day 30tabs Rigo Arthur 8.6mg as needed Busch, DO 7 Tablets constipation FACC Ondansetron HCL 1 by mouth every 8 Unknown 4mg hours as needed 6 Zoloft take 1 and 1/2 135tabs Ravi Arthur 100mg Tablets tablets by mouth each Bob Pisano 5 day. Mouthwash-AF use twice daily and Unknown Liquid after meals as needed 0 Enema Disposable 1 application Unknown Enema rectally as needed 0 Saline Nasal Fonda 1-2 sprays to both Unknown nares every 4 hours 0 0.65% Solution as needed Fluticasone 2 sprays each nostril Unknown Propionate prn 0 50mcg/Act Suspension Coumadin take 1 tablet 5 pm on Unknown 2.5mg Tablets Sat, , and 0 Tue Preservision Areds 2 1 cap by mouth two Unknown times per day 0 Areds 2 Capsules Coumadin 2 tabs by mouth every Unknown 2.5mg Tablets Tuesday, Tuesday and 0 Tuesday Vitamin B-12 2 tabs by mouth every Unknown 500mcg day 0 Tablets Ferrous Sulfate 1 by mouth every Unknown other day 0 325(65Fe) mg Tablets Vitamin C 1 by mouth every Unknown 500mg other day 0 Chewtabs Sarna Sensitive apply as needed for Unknown 1% rash 0 Lotion Diphenhydramine HCL 1 tab by mouth every Unknown 4 hrs as needed for 0 25mg Tablets allergies Ketoconazole apply to face twice a Unknown 2% Cream week 0 Omeprazole 1 by mouth every day Unknown 20mg [address] Spironolactone 1/2 by mouth every Unknown 25mg day 0 Tablets Polyethylene Glycol 17 grams mix with 8 Unknown oz of water every 0 1450 Powder other day Multivitamin Adults 1 by mouth every day Unknown 0 Tablets Vitamin D3 1 by mouth every Unknown 1000Unit other day 0 Tablets Bipap use at at bedtime Unknown Device 0 Atorvastatin Calcium 1 by mouth every day Unknown 0 10mg Tablets Coreg 1/2 tab bid. Hold for Unknown 3.125mg Tablets HR<60 , BP <100 0 Dulcolax as needed Unknown 10mg 0 Suppository Acetaminophen 2 tablets by mouth at Unknown 325mg 8 am and 2 pm 0 Tablets Travatan Z 1 gtt both eyes qhs Unknown 0.004% 0 Solution Aspirin Low Dose 1 by mouth every day Unknown 81mg 0 Tablets Medications Administered in Office Medication SIG Qnty Indications Ordering Provider Date Triamcinolone (Kenalog) Autumn Pearl MD 08/22/2018 Injection Depomedrol 40MG Rosana Gilliland M.D. 07/08/2016 Injection Immunizations CPT Code Status Date Vaccine Lot # [id number] Given 01/30/2015 Fluvirin Im 3Yrs And Older Vital Signs Date Vital Result Comment 09/01/2018 11:49am Height 62 inches 5'2" Weight 180.00 lb pt in wheelchair Heart Rate 68 /min BP Systolic 134 mmHg BP Diastolic 62 mmHg BMI (Body Mass Index) 32.9 kg/m2 08/22/2018 2:31pm Height 62 inches 5'2" Weight 187.00 lb Heart Rate 82 /min BP Systolic 130 mmHg BP Diastolic 80 mmHg Body Temperature 98.3 F Pain Level 8 BMI (Body Mass Index) 34.2 kg/m2 Results Description No Information Available Procedures Date Code Description Status 08/22/2018 10614 Inject/Drain Joint/Bursa Major W/O US Completed 01/25/2014 107736104 Diabetic Retinal Eye Exam Completed Medical Devices Description No Information Available Encounters Type Date Location Provider Dx Diagnosis Office Visit 09/01/2018 [facility] Kayleigh Fernandes, I69.319 Unsp symptoms and 11:30a Services Of [facility]h Rojas signs w cogn fnctns fol cerebral infrc 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 following cerebral infrc affecting left nondom side R94.01 Abnormal electroencephalogram [EEG] Office Visit 07/16/2018 10:47a [facility] Katerina Dee, R53.1 Weakness Assoc, Hospitalists PURCHASING ASSISTANT R29.810 Facial weakness R11.2 Nausea with vomiting, unspecified Office Visit 07/14/2018 10:30a [facility] Kayleigh Fernandes, I69.319 Unsp symptoms Services Of Suresh Rojas and signs w cogn fnctns 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 09/01/2018 I69.354 Hemiplegia and hemiparesis following Kayleigh Fernandes M.D. cerebral infarction aff 08/22/2018 M25.511 Pain in right shoulder Autumn Pearl MD 08/22/2018 M75.41 Impingement syndrome of right shoulder Autumn Pearl MD 07/18/2018 R53.1 Weakness Shante Josef, PURCHASING ASSISTANT 07/18/2018 R11.2 Nausea with vomiting, unspecified Shante Josef, PURCHASING ASSISTANT 07/17/2018 I69.354 Hemiplegia and hemiparesis following Arash Callaway M.D. cerebral infarction aff 07/17/2018 R94.01 Abnormal electroencephalogram [EEG] Arash Callaway M.D. 07/17/2018 R53.1 Weakness Shante Josef, PURCHASING ASSISTANT 07/17/2018 R11.2 Nausea with vomiting, unspecified Shante Josef, PURCHASING ASSISTANT 07/17/2018 R93.89 Abnormal findings on dx imaging of oth body Shante Josef, PURCHASING ASSISTANT structures 07/16/2018 R53.1 Weakness Katerina Leila, PURCHASING ASSISTANT 07/16/2018 R29.810 Facial weakness Katerina Dunlap, PURCHASING ASSISTANT 07/16/2018 R11.2 Nausea with vomiting, unspecified Katerina Dunlap, PURCHASING ASSISTANT 07/14/2018 I69.319 Unspecified symptoms and signs involving Kayleigh Fernandes M.D. 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 07/14/2018 M25.511 Pain in right shoulder Kayleigh Fernandes M.D. 07/14/2018 G56.21 Lesion of ulnar nerve, right upper limb Kayleigh Fernandes M.D. 05/19/2018 I69.319 Unspecified symptoms and signs involving Kayleigh Fernandes M.D. cognitive functions 05/19/2018 I69.354 Hemiplegia and hemiparesis following Kayleigh Fernandes M.D. 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 05/19/2018 M25.511 Pain in right shoulder Kayleigh Fernandes M.D. 05/19/2018 M25.522 Pain in left elbow Kayleigh Fernandes M.D. Plan of Treatment Future Appointment(s):12/15/2018 10:30 am - Kayleigh Fernandes M.D. at [facility]09/01/2018 - Kayleigh Fernandes M.D.I69.319 Unspecified symptoms and signs involving cognitive functionsFollow up:as rmboprwlgP20.4 Neurologic neglect gyrjowjvZ44.354 Hemiplegia and hemiparesis following cerebral infarction aff Functional Status Description No Information Available Mental Status Description No Information Available Referrals Description No Information Available
[2018-11-21 23:14] LABS: INR 1.32 (0.82-1.09)
[2018-11-21 23:20] LABS: Albumin 3.4 g/dL (3.2-5.2); Albumin/Globulin Ratio 0.9 (1-3); Calcium 9.2 mg/dL (8.6-10.3); EGFR African American 112.5 (>60); Globulin 3.6 g/dL (2-4); Potassium 4.1 mmol/L (3.5-5.0); Total Bilirubin 0.5 mg/dL (0.2-1.0)
[2018-11-21 23:24] LABS: Hematocrit 25 % (42-52); Hemoglobin 8.4 g/dL (14.0-18.0); Mean Corpuscular HGB Conc 33 g/dL (31-36); Mean Corpuscular Hemoglobin 29 pg (27-31); Mean Corpuscular Volume 89 fL (80-94); Red Blood Count 2.86 10^6 /uL (4.18-5.48); Red Cell Distribution Width 19 % (10-15); White Blood Count 4.3 10^3/uL (3.5-10.8)
[2018-11-21] MEDS ORDERED: Acetaminophen SUPP* 325 MG SUPP PR ONE (23:56)
[2018-11-21] MEDS ORDERED: Pantoprazole* 80 mg IN NS 80 MG/250 ML BAG IV ONE (23:56)
--- NOTE | 2018-11-22 00:01 | ED ---
GI/ HPI - HPI Summary HPI Summary: Pt is a 78 y/o M presenting to the ED with a chief complaint of GI issues. He was [place] [facility] [place], and when he returned to his senior care he experienced episodes of coffee ground emesis. Pts is concerned about his PEG tube, saying that he was given a large feeding bolus on 11/19/18 that she thinks may have caused this. Pt expressed general abd pain and nausea, but currently denies abd pain. He reports heaviness in his head, fatigue , confusion, and constipation. There is also slight blood coming from his PEG tube. - History of Current Complaint Chief Complaint: EDGIBleed Time Seen by Provider: 11/21/18 22:28 Stated Complaint: GI BLEED PER EMS Hx Obtained From: Patient Onset/Duration: Started Hours Ago, Still Present Timing: Constant, Lasting Hours Severity: Mild Current Severity: None Pain Intensity: 0 Location of Pain: Diffuse Associated Signs and Symptoms: Positive: Hematemesis, Nausea, Vomiting, Constipation, Other: - fatigue, confusion, HERNÁNDEZ Aggravating Factor(s): Nothing Alleviating Factor(s): Nothing - Additional Pertinent History Primary Care Physician: [id number] - Allergy/Home Medications Allergies/Adverse Reactions: Allergies Allergy/AdvReac Type Severity Reaction Status Date / Time shellfish derived Allergy Severe Airway Verified 07/16/18 17:11 Obstruction tree nut Allergy Intermediate Airway Verified 07/16/18 17:11 Obstruction vancomycin Allergy Intermediate Hives Verified 07/16/18 17:11 Adhesive Tape [Paper Tape] Allergy Rash Verified 11/09/18 06:11 tree and shrub pollen Allergy Sneezing Verified 07/16/18 17:11 lactose AdvReac GI Upset Verified 07/16/18 17:11 PMH/Surg Hx/FS Hx/Imm Hx Previously Healthy: Yes Endocrine/Hematology History: Reports: Hx Anticoagulant Therapy, Hx Bone Marrow Disease - myelodysplastic syndrome Denies: Hx Diabetes Cardiovascular History: Reports: Hx Angina, Hx Coronary Artery Disease, Hx Hypercholesterolemia, Hx Hypertension, Hx Syncope, Other Cardiovascular Problems /Disorders - LBBB Denies: Hx Congestive Heart Failure, Hx Pacemaker/ICD, Hx Peripheral Vascular Disease Respiratory History: Reports: Hx Seasonal Allergies, Hx Sleep Apnea - CPAP Denies: Hx Asthma, Hx Chronic Obstructive Pulmonary Disease (COPD) GI History: Reports: Hx Gastroesophageal Reflux Disease, Other GI Disorders - GERD Denies: Hx Gastrointestinal Bleed, Hx Hiatal Hernia, Hx Irritable Bowel, Hx Obstructive Bowel, Hx Ileostomy, Hx Pyloric Stenosis History: Reports: Hx Acute Renal Failure, Hx Benign Prostatic Hyperplasia, Hx Kidney Stones, Hx Renal Disease - KIDNEY STONES, Other Problems/Disorders - KIDNEY STONES,BPH, PROSTATECTOMY Denies: Hx Chronic Renal Failure, Hx Dialysis Musculoskeletal History: Reports: Hx Back Problems, Other Musculoskeletal History - Lumbar spinal stenosis Denies: Hx Osteoporosis Sensory History: Reports: Hx Contacts or Glasses, Hx Glaucoma, Hx Macular Degeneration, Hx Vision Problem Denies: Hx Cataracts, Hx Eye Prosthesis, Hx Legally Blind, Hx Hearing Aid, Hx Hearing Problem Opthamlomology History: Reports: Hx Contacts or Glasses, Hx Glaucoma, Hx Macular Degeneration, Hx Vision Problem Denies: Hx Cataracts, Hx Eye Prosthesis, Hx Legally Blind Neurological History: Reports: Hx CVA - with left sided weakness , Hx Transient Ischemic Attacks (TIA), Other Neuro Impairments/Disorders - lumbar stenosis,CVA , frontal lobe damage Denies: Hx Dementia - states pt does not have dementia, Hx Headaches, Hx Seizures, Hx Spinal Cord Injury Psychiatric History: Reports: Hx Depression Denies: Hx Anxiety, Hx Oppositional [place] Disorder, Hx Panic Disorder, Hx Suicide Attempt, Hx of Violent Episodes Against Others - Cancer History Cancer Type, 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 - SURGERY Hx Chemotherapy: No Hx Radiation Therapy: No Hx Palliative Cancer Treatment: No - Surgical History Surgery Procedure, Year, and Place: CABG, TONSILS, KIDNEY STONES, CATARACT, PROSTATECTOMY, SPINAL STENOSIS SURGERY, HIP REPLACEMENT, CARDIAC STENT, FEMUR - Immunization History Date of Tetanus Vaccine: UTD Date of Influenza Vaccine: UTD Infectious Disease History: No Infectious Disease History: Reports: Hx Shingles - 2009 Denies: Hx Clostridium Difficile, Hx Hepatitis, Hx of Known/Suspected MRSA, Hx Tuberculosis, Hx Known/Suspected VRE, Hx Known/Suspected VRSA, Traveled Outside the [place] in Last 30 Days - Family History Known Family History: Positive: Cardiac Disease - Social History Alcohol Use: None Alcohol Amount: 1 drink per week Hx Substance Use: No Substance Use Type: Reports: None Hx Tobacco Use: Yes Smoking Status (MU): Former Smoker Type: Cigarettes Have You Smoked in the Last Year: No Review of Systems Positive: Fatigue Positive: Abdominal Pain, Vomiting - coffee ground emesis, Nausea, Other - constipation, blood from PEG tube Neurological: Other - confusion Positive: Headache All Other Systems Reviewed And Are Negative: Yes Physical Exam - Summary Physical Exam Summary: Constitutional: Well-developed, Well-nourished, Alert. (-) Distressed Skin: Warm, Dry HENT: Normocephalic; Atraumatic Eyes: Conjunctiva normal Neck: Musculoskeletal ROM normal neck. (-) JVD, (-) Stridor, (-) Tracheal deviation Cardio: Rhythm regular, rate normal, Heart sounds normal; Intact distal pulses; Radial pulses are 2+ and symmetric. (-) Murmur Pulmonary/Chest wall: Effort normal. (-) Respiratory distress, (-) Wheezes, (-) Rales Abd: PEG tube with blood-tinged secretion, (-) tenderness, (-) Distension, (-) Guarding, (-) Rebound Musculoskeletal: (-) Edema Lymph: (-) Cervical adenopathy Neuro: Alert, Oriented x3 Psych: Mood and affect Normal GRICELDA: Brown stool Triage Information Reviewed: Yes Vital Signs On Initial Exam: Initial Vitals Temp Pulse Resp BP Pulse Ox 98.9 F 104 18 116/68 96 11/21/18 21:52 11/21/18 21:52 11/21/18 21:52 11/21/18 21:52 11/21/18 21:52 Vital Signs Reviewed: Yes Procedures - Sedation Patient Received Moderate/Deep Sedation with Procedure: No Diagnostics - Vital Signs Vital Signs Temp Pulse Resp BP Pulse Ox 11/21/18 23:17 101 21 110/69 90 11/21/18 23:00 101 26 91 11/21/18 22:47 26 123/70 11/21/18 22:17 17 109/67 11/21/18 22:14 17 11/21/18 21:52 98.9 F 104 18 116/68 96 - Laboratory Lab Results: Lab Results 11/21/18 11/21/18 11/21/18 Range/Units 22:55 22:55 22:55 WBC 4.3 (3.5-10.8) 10^3/uL RBC 2.86 L (4.18-5.48) 10^6 /uL Hgb 8.4 L (14.0-18.0) g/dL Hct 25 L (42-52) % MCV 89 (80-94) fL MCH 29 (27-31) pg MCHC 33 (31-36) g/dL RDW 19 H (10-15) % Plt Count Pending MPV Pending Neut % (Auto) Pending Lymph % (Auto) Pending Camp % (Auto) Pending Eos % (Auto) Pending Baso % (Auto) Pending Absolute Neuts (auto) Pending Absolute Lymphs (auto) Pending Absolute Monos (auto) Pending Absolute Eos (auto) Pending Absolute Basos (auto) Pending Absolute Nucleated RBC Pending Nucleated RBC % Pending INR (Anticoag Therapy) 1.32 H (0.82-1.09) Sodium 141 (135-145) mmol/L Potassium 4.1 (3.5-5.0) mmol/L Chloride 106 (101-111) mmol/L Carbon Dioxide 29 (22-32) mmol/L Anion Gap 6 (2-11) mmol/L BUN 28 H (6-24) mg/dL Creatinine 0.80 (0.67-1.17) mg/dL Est GFR ( Amer) 112.5 (>60) Est GFR (Non-Af Amer) 93.0 (>60) BUN/Creatinine Ratio 35.0 H (8-20) Glucose 133 H (70-100) mg/dL Calcium 9.2 (8.6-10.3) mg/dL Total Bilirubin 0.50 (0.2-1.0) mg/dL AST 22 (13-39) U/L ALT 25 (7-52) U/L Alkaline Phosphatase 93 (34-104) U/L Total Protein 7.0 (6.4-8.9) g/dL Albumin 3.4 (3.2-5.2) g/dL Globulin 3.6 (2-4) g/dL Albumin/Globulin Ratio 0.9 L (1-3) Lipase 32 (11.0-82.0) U/L Result Diagrams: 11/22/18 02:01 11/21/18 22:55 Lab Statement: Any lab studies that have been ordered have been reviewed, and results considered in the medical decision making process. GIGU Course/Dx - Course Course Of Treatment: Patient is here with coffee-ground emesis. Patient was discharged from the hospital yesterday following a complex hospital stay including PEG tube placement. Patient has had bloody secretions out of his PEG tube. Patient had brown stool in GRICELDA. Patien was hemodynamically stable. Patient had a 2 point drop in his hemoglobin over 24 hours. GI was called and recommended Protonix drip and admission to the hospital. Patient is admitted to medicine. - Diagnoses Provider Diagnoses: GI bleed Discharge ED - Sign-Out/Discharge Documenting (check all that apply): Patient Departure - Discharge Plan Condition: Stable Disposition: ADMITTED TO [facility] Referrals: Mattie Drew MD [Primary Care Provider] - - Billing Disposition and Condition Condition: STABLE Disposition: Admitted to [facility] - Attestation Statements Document Initiated by Scribe: Yes Documenting Scribe: Cheryl Sanchez Provider For Whom Juliana is Documenting (Include Credential): Juan C Modi MD. Scribe Attestation: Cheryl Powers, scribed for Juan C Modi MD. on 11/22/18 at 0305. Scribe Documentation Reviewed: Yes Provider Attestation: The documentation as recorded by the scribe, Cheryl Sanchez accurately reflects the service I personally performed and the decisions made by me, Juan C Modi MD. Status of Scribe Document: Viewed Consult Consult: [phone] - I spoke with Dr. Ramirez who recommended calling GI to obtain their opinion. [phone] - I spoke with Dr. Negrete who recommended Protonix drip and CBCs q6hrs.
[2018-11-22 00:17] LABS: Microcytosis 2+; Polychromasia 1+
[2018-11-22 00:18] LABS: ABS Lymphocytes 1.1 10^3/ul (1.0-4.8); ABS Monocytes 0.3 10^3/ul (0-0.8); ABS Neutrophils 2.9 10^3/ul (1.5-7.7); Eosinophil % 0.4 %; Lymphocyte % 24.9 %; Mean Platelet Volume 11.6 fL (7.4-10.4); Nucleated Red Blood Cells % 0.1; Platelet Count 98 10^3/uL (150-450)
[2018-11-22 02:31] LABS: Hematocrit 24 % (42-52); Mean Corpuscular HGB Conc 33 g/dL (31-36); Mean Corpuscular Hemoglobin 29 pg (27-31); Mean Corpuscular Volume 88 fL (80-94); Mean Platelet Volume 10.9 fL (7.4-10.4); Platelet Count 93 10^3/uL (150-450); Red Blood Count 2.74 10^6 /uL (4.18-5.48); Red Cell Distribution Width 19 % (10-15); White Blood Count 4.6 10^3/uL (3.5-10.8)
[2018-11-22] MEDS ORDERED: Ondansetron INJ* 2 MG/ML VIAL IV PRN (04:14)
[2018-11-22] MEDS ORDERED: NS 0.9% 1000 ML** 1,000 ML IV SCH ×2 (04:15→09:30)
[2018-11-22] MEDS ORDERED: Bisacodyl SUPP* 10 MG SUPP PR PRN (04:35)
[2018-11-22] MEDS ORDERED: Albuterol/Ipratropium NEB.SOL* Albuterol 2.5 MG/Ipratropium 0.5 MG 3 ML INH PRN (04:35)
[2018-11-22] MEDS ORDERED: Piperacillin/Tazobac ADVAN(*) 3.375 GM in NS 0.9% 100 ML* 100 ML IVPB ONE (05:23)
[2018-11-22 05:35] LABS: Hematocrit 25 % (42-52); Mean Corpuscular HGB Conc 33 g/dL (31-36); Mean Corpuscular Hemoglobin 29 pg (27-31); Mean Corpuscular Volume 89 fL (80-94); Mean Platelet Volume 10.6 fL (7.4-10.4); Platelet Count 92 10^3/uL (150-450); Red Blood Count 2.75 10^6 /uL (4.18-5.48); Red Cell Distribution Width 19 % (10-15); White Blood Count 4.4 10^3/uL (3.5-10.8)
[2018-11-22 05:43] LABS: BUN/Creatinine Ratio 37.8 (8-20); Calcium 9.1 mg/dL (8.6-10.3); EGFR African American 109.4 (>60); EGFR Non-African American 90.4 (>60); Potassium 4.2 mmol/L (3.5-5.0)
[2018-11-22] MEDS ORDERED: Zosyn per Pharmacy* NOTE FOLLOW UP SCH (06:00)
[2018-11-22 06:05] LABS: ABS Monocytes 0.4 10^3/ul (0-0.8); Eosinophil % 0.3 %; Lymphocyte % 22.2 %; Nucleated Red Blood Cells % 0.2; Polychromasia 1+
--- NOTE | 2018-11-22 07:39 | PN ---
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 VSS Labs: Hemoglobin 8 from 8.4, not critical, in ICU, VSS-no documented fever, unclear why on Zosyn This morning, oriented to name and year as well as hospital, complains of no pain, would like some juice.Discussion with his who is frustrated about all his time in the hospital understandably. We discuss the need to have shard decision making regarding his AC status, will involve his neurologist who knows hims well. Also we discuss code status and we also discuss transfer out of unit. Objective Active Medications: Albuterol/Ipratropium (Duoneb (Albuterol 2.5 Mg/Ipratropium 0.5 Mg)) 1 neb INH [id number] AWAKE PRN PRN Reason: WHEEZING Bisacodyl (Dulcolax Supp*) 10 mg NE DAILY PRN PRN Reason: no bm in 3 days Pantoprazole Sodium (Protonix Iv Bag*) 80 mg in 250 mls @ 25 mls/hr IV ED ONCE ONE Stop: 11/22/18 09:55 Last Admin: 11/22/18 00:41 Dose: 25 mls/hr Sodium Chloride (Ns 0.9% 1000 Ml) 1,000 mls @ 100 mls/hr IV PER RATE BROOK Last Admin: 11/22/18 05:25 Dose: 100 mls/hr Piperacillin Sod/Tazobactam (Sod 3.375 gm/ Sodium Chloride) 100 mls @ 25 mls/ hr IVPB Q8H [facility] Latanoprost (Xalatan 0.005%*) 1 drop BOTH EYES BEDTIME BROOK; Protocol Ondansetron HCl (Zofran Inj*) 4 mg IV Q4H PRN PRN Reason: NAUSEA/VOMITING Pantoprazole Sodium (Protonix Iv*) 40 mg IV Q12H [facility] Pharmacy Consult (Zosyn Per Pharmacy*) 1 note FOLLOW UP .ZOSYN PER PHARMACY [facility] Vital Signs - 8 hr 11/21/18 11/21/18 11/22/18 23:47 23:48 00:00 Temperature 101.4 F Pulse Rate 100 97 Respiratory 22 17 Rate Blood Pressure 110/63 (mmHg) O2 Sat by Pulse 95 94 Oximetry 11/22/18 11/22/18 11/22/18 00:17 00:27 00:47 Temperature Pulse Rate 98 100 97 Respiratory 17 20 16 Rate Blood Pressure 113/59 113/65 (mmHg) O2 Sat by Pulse 95 96 99 Oximetry 11/22/18 11/22/18 11/22/18 01:00 01:17 01:47 Temperature Pulse Rate 106 99 99 Respiratory 21 21 24 Rate Blood Pressure 114/66 100/63 (mmHg) O2 Sat by Pulse 93 97 92 Oximetry 11/22/18 11/22/18 11/22/18 02:00 02:17 02:47 Temperature Pulse Rate 98 96 92 Respiratory 26 20 22 Rate Blood Pressure 106/55 103/63 (mmHg) O2 Sat by Pulse 93 95 97 Oximetry 11/22/18 11/22/18 11/22/18 03:00 03:17 03:47 Temperature Pulse Rate 95 96 95 Respiratory 26 27 24 Rate Blood Pressure 103/68 112/63 (mmHg) O2 Sat by Pulse 93 97 90 Oximetry 11/22/18 11/22/18 11/22/18 04:00 04:17 04:43 Temperature 98.0 F Pulse Rate 96 95 97 Respiratory 28 27 21 Rate Blood Pressure 127/65 121/60 (mmHg) O2 Sat by Pulse 94 95 Oximetry 11/22/18 11/22/18 11/22/18 04:55 04:57 05:00 Temperature 99.1 F Pulse Rate 90 Respiratory 22 13 21 Rate Blood Pressure 117/63 (mmHg) O2 Sat by Pulse 93 Oximetry 11/22/18 11/22/18 11/22/18 05:08 05:15 05:33 Temperature Pulse Rate 97 97 Respiratory 24 21 24 Rate Blood Pressure 121/60 113/59 (mmHg) O2 Sat by Pulse 95 96 Oximetry 11/22/18 11/22/18 05:45 06:00 Temperature Pulse Rate 95 94 Respiratory 23 20 Rate Blood Pressure 105/59 102/60 (mmHg) O2 Sat by Pulse 97 96 Oximetry Oxygen Devices in Use Now: None Appearance: Pleasant man in NAD Eyes: No Scleral Icterus, PERRLA Ears/Nose/Mouth/Throat: NL Teeth, Lips, Gums, Clear Oropharnyx Neck: NL Appearance and Movements; NL JVP Respiratory: Symmetrical Chest Expansion and Respiratory Effort, - - Rhonchourus Cardiovascular: NL Sounds; No Murmurs; No JVD, - - S1S2 JAZZY 3/6 in precordium Abdominal: NL Sounds; No Tenderness; No Distention, No Hepatosplenomegaly, - - Scant bleeding at PEG site, some light red blood in the tube Extremities: No Edema Skin: No Rash or Ulcers Neurological: - - Oriented to self, year, roughly place but not event Result Diagrams: 11/22/18 05:21 11/22/18 05:21 Additional Lab and Data: Lab Results 11/21/18 11/21/18 11/21/18 Range/Units 22:55 22:55 22:55 WBC 4.3 (3.5-10.8) 10^3/uL RBC 2.86 L (4.18-5.48) 10^6 /uL Hgb 8.4 L (14.0-18.0) g/dL Hct 25 L (42-52) % MCV 89 (80-94) fL MCH 29 (27-31) pg MCHC 33 (31-36) g/dL RDW 19 H (10-15) % Plt Count Pending MPV Pending Neut % (Auto) Pending Lymph % (Auto) Pending [place]pherson % (Auto) Pending Eos % (Auto) Pending Baso % (Auto) Pending Absolute Neuts (auto) Pending Absolute Lymphs (auto) Pending Absolute Monos (auto) Pending Absolute Eos (auto) Pending Absolute Basos (auto) Pending Absolute Nucleated RBC Pending Nucleated RBC % Pending INR (Anticoag Therapy) 1.32 H (0.82-1.09) Sodium 141 (135-145) mmol/L Potassium 4.1 (3.5-5.0) mmol/L Chloride 106 (101-111) mmol/L Carbon Dioxide 29 (22-32) mmol/L Anion Gap 6 (2-11) mmol/L BUN 28 H (6-24) mg/dL Creatinine 0.80 (0.67-1.17) mg/dL Est GFR ( Amer) 112.5 (>60) Est GFR (Non-Af Amer) 93.0 (>60) BUN/Creatinine Ratio 35.0 H (8-20) Glucose 133 H (70-100) mg/dL Calcium 9.2 (8.6-10.3) mg/dL Total Bilirubin 0.50 (0.2-1.0) mg/dL AST 22 (13-39) U/L ALT 25 (7-52) U/L Alkaline Phosphatase 93 (34-104) U/L Total Protein 7.0 (6.4-8.9) g/dL Albumin 3.4 (3.2-5.2) g/dL Globulin 3.6 (2-4) g/dL Albumin/Globulin Ratio 0.9 L (1-3) Lipase 32 (11.0-82.0) U/L Microbiology and Other Data: Microbiology 11/21/18 23:12 Stool Occult Blood (LILI) - Final Stool Assess/Plan/Problems-Billing Assessment: 78M PMH 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 - Patient Problems (1) Nausea and vomiting Current Visit: No Status: Acute Code(s): R11.2 - NAUSEA WITH VOMITING, UNSPECIFIED SNOMED Code(s): 24196531 Comment: - One episode prior to admission per EMS report which is what prompted his readmissoin (bleeding and one episode of emisis), but no further symptoms - D/C Zosyn, no witnessed vomiting (2) Acute blood loss anemia Current Visit: No Status: Acute Code(s): D62 - ACUTE POSTHEMORRHAGIC ANEMIA SNOMED Code(s): 963082616 Comment: - Has anemia at baseline related to his myelodyplastic syndrome, mild bleeding from PEG site, also on AC for frequent stroke and fib. Suspect this is external bleeding - On PPI IV BID, will discuss if any intervention to GI - Needs to have risk benefit discussion with family about mcfp stopping AC - Hgb 8 down from 8.4, VSS - Continue to monitor. 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, MRI recently hsows no new stroke accounting for dysphagia - HAS-BLED score is 4 indicating an 8.9% risk of bleeds per 100 patient years; CHADS-VASC2 score is 6 indicating a 9.7% risk of stroke per year - Residual defecit of mild cognitive impariment, some L sided weakness - on coumadin for multiple CVAs, held now (4) Chronic systolic congestive heart failure Current Visit: No Status: Acute Code(s): I50.22 - CHRONIC SYSTOLIC ( CONGESTIVE) HEART FAILURE SNOMED Code(s): 652169922 Comment: - Repeat Echo on 11/12, EF 30% - carvedilol, statin, ASA on hold, resume as able - reevalaute need for additional lasix daily (5) Dysphagia Current Visit: No Status: Acute Code(s): R13.10 - DYSPHAGIA, UNSPECIFIED SNOMED Code(s): 68283304 Comment: - Had an episode of aspiration on 11/03/18, 11/19 - Failed swallow eval x2, can rediscuss with speech to determine if baseline has improved - PPN initiated as short term solution with PEG, held currently (6) Myelodysplasia (myelodysplastic syndrome) Current Visit: No Status: Acute Code(s): D46.9 - MYELODYSPLASTIC SYNDROME, UNSPECIFIED SNOMED Code(s): 759653378 Comment: - counts are at baseline - Mild bleeding post procedure 11/16 - Plaquenil being held (7) Coronary artery disease Current Visit: No Status: Chronic Priority: Medium Code(s): I25.10 - ATHSCL HEART DISEASE OF [place] CORONARY ARTERY W/O ANG PCTRS SNOMED Code(s): 11464041 Comment: - With history of CABG - Holding 2/2 prevention - Continue tele (8) Dyslipidemia Current Visit: No Status: Chronic Code(s): E78.5 - HYPERLIPIDEMIA, UNSPECIFIED SNOMED Code(s): 794811810 Comment: - Continue statin. (9) MARY (obstructive sleep apnea) Current Visit: No Status: Chronic Code(s): G47.33 - OBSTRUCTIVE SLEEP APNEA (ADULT) (PEDIATRIC) SNOMED Code(s): 61759088 Comment: - Currently untreated (10) Depression Current Visit: No Status: Acute Code(s): F32.9 - MAJOR DEPRESSIVE DISORDER, SINGLE EPISODE, UNSPECIFIED SNOMED Code(s): 09537059 Comment: - Holding home sertraline (11) Gout Current Visit: No Status: Chronic Priority: Medium Onset Date: 10/31/13 Code(s): M10.9 - GOUT, UNSPECIFIED SNOMED Code(s): 51522601 Comment: - No acitve flare (12) DVT prophylaxis Current Visit: No Status: Acute Code(s): IJQ5394 - SNOMED Code(s): 262476217 Comment: - On hold (13) Full code status Current Visit: No Status: Acute Code(s): Z78.9 - OTHER SPECIFIED HEALTH STATUS SNOMED Code(s): 145384372 Comment: - Recently changed on this admission, long discussion with his and she will discuss with his daughter, they currently defer to full Status and Disposition: Transfer out of ICU
--- NOTE | 2018-11-22 07:54 | HP ---
CC: Dr. Mattie Drew * ADMISSION HISTORY AND PHYSICAL: DATE OF ADMISSION: 11/22/18 PRIMARY CARE PHYSICIAN: Mattie Drew MD CHIEF COMPLAINT: Blood via PEG tube site. HISTORY OF PRESENT ILLNESS: This is an 78-year-old male with past medical history of multiple CVAs with significant deficits and vascular dementia, coronary artery disease with heart failure with reduced ejection fraction, myelodysplastic syndrome, hypertension, who was recently discharged with a PEG tube after failing multiple swallow evaluations back to [facility]. Upon arrival yesterday within 5 hours, the [facility] sent the patient back to the ER, as they noticed some blood coming out of the not just around the PEG tube site, but also within the PEG tube site and the patient also had an episode of coffee-ground emesis. Once arrival to the ER, the ER physician also noted stool guaiac was positive and recommended admission for possible GI bleed. stated that even before discharge, the patient was having episodes of vomiting intermittently and required some help for bowel movements with suppositories and enema. The patient himself was still a little confused. He knew it was 2018 and we were close to winter, but he could not specify month and he knew it was [facility]. He did not have any other symptoms at this point. PAST MEDICAL HISTORY: History of multiple strokes with residual left-sided weakness and coronary artery disease with congestive heart failure and reduced EF. Echocardiogram on 11/12/18 showed EF of 30%. There is a remote documentation of AFib possibly contributing to the patient's stroke and he is on anticoagulation with Coumadin. He was recently discharged with a bridging Lovenox as his INR was still not therapeutic. He also has spinal stenosis, prostate cancer, nephrolithiasis, myelodysplastic syndrome, hypertension, hyperlipidemia, glaucoma, macular degeneration. PAST SURGICAL HISTORY: Include prostatectomy, quadruple bypass, back surgery, and the most recent jejunostomy tube placement via the PEG site. HOME MEDICATIONS: The patient is currently on: 1. Lactobacillus 1 tab p.o. b.i.d. 2. Mouth tonic rinse oral p.o. b.i.d. 3. Plaquenil 400 mg oral daily. 4. PreserVision 1 tablet p.o. b.i.d. 5. Vitamin D 1000 units oral every other day. 6. Vitamin C 500 mg every other day. 7. Melatonin 1 tablet p.o. at bedtime. 8. Ferrous sulfate 325 mg every other day. 9. Benadryl 25 mg q.4 hours p.r.n. 10. Coumadin 5 mg p.o. Tuesday, Tuesday, Tuesday and 2.5 mg p.o. Tuesday, , Tuesday, and Tuesday. 11. Fleet enema daily p.r.n. for constipation. 12. Saline nasal spray both nares q.4 hours p.r.n. 13. Multivitamin oral daily. 14. Ketoconazole cream topical t.i.d. 15. Fluticasone 2 sprays both nares p.r.n. 16. Vitamin B12 of 1000 mcg p.o. daily. 17. Coreg 1.5625 mg p.o. b.i.d. 18. Travatan Z 0.004% ophthalmic 1 drop both eyes at bedtime. 19. Senna 17.2 mg p.o. at bedtime p.r.n. 20. Aspirin 81 mg oral daily. 21. Zoloft 150 mg daily. 22. MiraLAX 17 g packet every other day. 23. Omeprazole 20 mg oral daily. 24. Atorvastatin 10 mg p.o. q.p.m. 25. Zofran 4 mg q.8 hours p.r.n. 26. Bisacodyl 10 mg per rectum daily p.r.n. 27. DuoNeb q.4 hours while awake. 28. Lovenox 90 mg subcutaneous q.12 hours. 29. Tylenol 650 mg per rectum q.4 hours p.r.n. ALLERGIES: The patient is allergic to SHELLFISH, TREE NUTS, VANCOMYCIN, , TREE and SHRUB POLLEN, and LACTOSE. FAMILY HISTORY: Mother of unknown type of cancer. Father at age 57 with an ID. SOCIAL HISTORY: He smoked approximately 1 year in his late 20s. Drinks occasional alcohol. Denies any illicit drug use. 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 He is . His , Angeles, is his surrogate decision maker. The patient was previously DNR, but now they have rescinded the DNR and the patient is full code. REVIEW OF SYSTEMS: A 14-point review of systems did not reveal any new information other than what is mentioned in the HPI. PHYSICAL EXAMINATION GENERAL: The patient is awake, alert, oriented to place and approximately to time. VITAL SIGNS: In the ER, BP was noted to be 121/60, heart rate 97, respiration rate 21, saturating 95% on room air, the T-max was noted to be 101.4 degrees Fahrenheit. HEAD AND NECK: Atraumatic, normocephalic. Oral mucosa was dry. There was old tube-feeds on his tongue. Neck: Supple. No jugular venous distention. LUNGS: Clear to auscultation bilaterally. HEART: S1, S2. Regular rate and rhythm. ABDOMEN: Soft, but there is a PEG tube in place, which was showing some blood within the tubing and around the site. Abdomen was otherwise soft. EXTREMITIES: No cyanosis, clubbing, or edema. DIAGNOSTIC STUDIES/LAB DATA: CBC was showing normal white count, hemoglobin and hematocrit stable, platelet count was noted to be 98. A repeat CBC shows some minimal drop in the hemoglobin from 8.4 to 8.2. Coagulation profile shows subtherapeutic INR at 1.32. Comprehensive metabolic panel shows elevated BUN at 28, creatinine noted to be normal at 0.8, random glucose minimally elevated at 133. Stool guaiac was noted to be positive. IMPRESSION: This is an 78-year-old male recently discharged from the hospital comes back in with bleeding around the site of the PEG tube and also within the PEG tube and noted to have coffee-ground emesis and noted to have stool that is guaiac positive and had a 2 g drop in hemoglobin since prior to discharge at 10.5 to current admission at 8.4, likely GI bleeding. ASSESSMENT: 1. Acute blood loss anemia, likely secondary to GI bleed around the PEG tube site. We will consult the GI to evaluate the patient and keep the patient n.p.o. and nothing per G-tube as well and hold his home dose of bridging Lovenox and Coumadin for now. 2. Fever. We will get fever workup started including blood cultures, urinalysis, portable chest x-ray and start the patient on a broad spectrum antibiotic with Zosyn and Tylenol suppository p.r.n. 3. History of multiple strokes with left-sided weakness. We will hold his aspirin and Coumadin. 4. Possible history of atrial fibrillation, on Coumadin; we will hold the Coumadin for now. 5. History of hypertension. We will hold p.o. medications in light of keeping him n.p.o. We will start the patient on IV medications if his blood pressure ever shows further elevation. 6. History of myelodysplastic syndrome and rheumatoid type syndrome, on Plaquenil. We will hold Plaquenil for now. 7. History of glaucoma. Restart home eye drops. 8. DVT prophylaxis with just sequential compression device as anticoagulation would be contraindicated. 9. Code status. The patient was DNR, but now wants him to be full code. I have explained that overall prognosis is still very poor. TIME SPENT: Over 60 minutes were spent explaining the case to the patient in face- to-face. [id number]/[facility] #: [id number] [place]
[2018-11-22] MEDS: Pantoprazole IV* 40 MG IV SCH ×2 (09:35→21:18)
[2018-11-22] MEDS ORDERED: ZOSYN 3.375 GM Q8H per EXTENDED INFUSION IVPB SCH ×2 (10:30)
[2018-11-22 10:35] LABS: Urine Appearance Cloudy; Urine Bilirubin Negative (Negative); Urine Blood Negative (Negative); Urine Color Yellow; Urine Glucose Negative (Negative); Urine Ketones Negative (Negative); Urine Nitrite Negative (Negative); Urine Protein Negative (Negative); Urine Specific Gravity 1.026 (1.010-1.030); Urine Urobilinogen Negative (Negative)
--- NOTE | 2018-11-22 12:45 | PN ---
Hospitalist Progress Note Date of Service: 11/22/18 Clinical care update: Discussion with neuro (his outpt Neuro is Dr. Ji whom I have called) and heme (Dr. Cavazos) who I have asked to comment on his bleeding vs stroke risk in the setting of PEG tube placement. I believe his PEG tube is causing some mild oozing in setting of his AC and MDS and currently we are holding AC, I do not believe this represents and upper GIB, and GI in consultation would hold on scoping unless there is stronger evidence of a true brisk bleed. I have shared these thoughts about these difficult choices with patients Angeles and together we will all need to discuss that unfortunately he is in a difficult place where he is needing nutrition which is currently being delivered by PEG which is causing a slow ooze and bleed while he is on AC and in the setting of MDS. We can hold his AC but his risk of stroke will increase and he could certainly have another stroke (he was placed on warfarin for cryptogenic stroke, and last new stroke in 2016, but he has had 5-6 since 2011) , he did have recurrent stroke on asa/plavix alone per Dr. Fernandes. His MDS appears stable, Plt anywhere from 25-90. Overall, the following scenarios should be weighed in the setting of understanding patient has certainly declined from a functional standpoint. 1) HOLDING AC: for his nutrition he is getting enteral feeding since 11/16, his AC was held for procedure and then resumed, and then held and then resumed again on 11/19 with bridging with lovenox in setting of low INR, he was d/c to [place] with oozing from PEG site, likely not a true brisk intraluminal bleed. We can hold his AC, take the risk of stroke, and hope that his swallowing function improves to where he could resume oral feeding in the future 2) Continuing AC: He may continue to bleed, we could try to augment the amt of enteral feeds working with nutrition to see if he will be less irritated and if he is able to swallow some on his own to take in calories, he has the risk of continual bleeding from PEG site or even more a dangerous a brisk internal bleed. I have asked speech, heme, neuro, and GI to weigh in on these risks. I will also include Dr. Drew in these discussions in the context of Dr. Carranza overall prognosis, as his has felt very concerned that there has been a sort of "giving up on" attitude towards the patient, which I don't believe to be true but I think is sometimes common when goals of care change and evolve. I do not think palliative would be helpful at this time as they were involved earlier.
[2018-11-22 14:48] LABS: Hematocrit 23 % (42-52); Hemoglobin 7.5 g/dL (14.0-18.0)
[2018-11-22] MEDS ORDERED: Saline NASAL SPRAY 0.65%* BTL BOTH NARES PRN (16:45)
[2018-11-22] MEDS: Atorvastatin* 10 MG TAB G TUBE SCH (18:04)
--- NOTE | 2018-11-22 19:00 | CONS ---
CC: Dr. Newton * GASTROENTEROLOGY CONSULT REPORT: DATE OF CONSULT: 11/22/18 INPATIENT PROVIDER: Dr. Newton. REASON FOR CONSULT: Bleeding from PEG site and coffee-ground emesis. HISTORY OF PRESENT ILLNESS: Mr. Cramer is an 78-year-old gentleman with multiple medical comorbidities including vascular dementia, CAD, atrial fibrillation on anticoagulation, MDS, heart failure with reduced ejection fraction, aortic stenosis, and oral dysphagia with recent PEG placement on 11/15, who is admitted with bleeding from PEG site and coffee-ground emesis. Mr. Cramer was hospitalized for nearly 3 weeks. During the end of that admission, he underwent a PEG placement by Dr. Watson on 11/15/18. Reports noted chronic gastritis without high-risk features for bleeding. A PEG tube was placed. Several days after PEG placement, there was red blood seen from PEG tube site. This was managed with pressure bandage. The patient was maintained on anticoagulation and discharged on 11/21/18 to [facility]. Shortly after arrival to the facility, he was noted to have coffee-ground emesis and some bleeding from the PEG tube site. He was readmitted to [facility]. Labs notable for a hemoglobin of 8.4 on 11/21/18, which was down from 10.5 on 11/20/18. Of note, the patient's hemoglobin had been 8.8 to 9.7 range for the last week of October. The patient has had anticoagulation held now. On interview, Mrs. Cramer provided most of the history. Mr. Cramer notes that he feels a little nauseous. Denies any abdominal pain. Mrs. Cramer has some concerns that the coffee-ground emesis and bleeding seem to be more of an issue when he was started on bolus tube feeds. No further coffee-ground emesis noted by patient or today. No melena or hematochezia had been reported. The patient had a large bowel movement over the weekend. PAST MEDICAL HISTORY: 1. Multiple strokes with residual left-sided weakness. 2. Coronary artery disease with congestive heart failure and reduced EF. EF in late October was 30%. 3. Atrial fibrillation, on Coumadin. 4. Prostate cancer. 5. Myelodysplastic syndrome. 6. Hypertension. 7. Hyperlipidemia. 8. Glaucoma. 9. Macular degeneration. 10. Spinal stenosis. PAST SURGICAL HISTORY: Prostatectomy, quadruple bypass, back surgery, and PEG tube placement. HOME MEDICATIONS: 1. Lactobacillus b.i.d. 2. Plaquenil 400 mg daily. 3. Vitamin D 1000 units every other day. 4. Vitamin C 500 mg every other day. 5. Melatonin 1 tablet at bedtime. 6. Iron 325 mg every other day. 7. Benadryl p.r.n. 8. Coumadin as directed. 9. Multivitamin daily. 10. Vitamin B12 at 1000 mcg daily. 11. Coreg 1.5625 twice daily. 12. Travatan Z to both eyes at bedtime. 13. Aspirin 81 mg daily. 14. Zoloft 150 mg daily. 15. MiraLAX 17 g every other day. 16. Omeprazole 20 mg daily. 17. Atorvastatin 10 mg every evening. 18. Zofran 4 mg p.r.n. 19. DuoNeb every 4 hours. 20. Lovenox 90 mg q.12. 21. Tylenol p.r.n. ALLERGIES: Allergic to shellfish, tree nuts, VANCOMYCIN, tree and shrub pollen , and LACTOSE. FAMILY HISTORY: Mother of unknown type of cancer. Father at 57 with an MS. SOCIAL HISTORY: Former smoker. Occasional alcohol use. 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 . REVIEW OF SYSTEMS: The patient minimally interactive verbally. No other active issues noted by the patient or the , except as mentioned above. PHYSICAL EXAM: Vital Signs: Reviewed. Afebrile, heart rate in the 90s, blood pressure 108/51 , 100% on room air. General: Chronically ill-appearing gentleman. HEENT: Mucous membranes are moist. Cardiovascular: Regular rate and rhythm. Pulmonary: Breathing comfortably. Abdomen: Soft, nontender, nondistended. PEG tube with dressing. Dressing was taken down. PEG tubing contains a small amount of dark brown fluid. Very small amount of red blood seen at the PEG tube site without any evidence of active bleeding. DIAGNOSTIC STUDIES/LAB DATA: Labs reviewed. Hemoglobin has trended down as compared to at the time of discharge on Tuesday. Hemoglobin 8.4 on admission, down to 8 this morning, and now down to 7.5. Imaging: Chest x-ray this morning without acute findings. IMPRESSION AND RECOMMENDATION: Mr. Cramer is an 78-year-old gentleman with multiple medical comorbidities including history of stroke with vascular dementia, atrial fibrillation, coronary artery disease status post bypass, heart failure with reduced ejection fraction, and oral dysphagia status-post PEG placement on 11/15/18, who is admitted with bleeding from PEG tube site and coffee-ground emesis. The patient is hemodynamically stable. No evidence of ongoing gastrointestinal bleeding. Hemoglobin has trended down, although without any alarming drying rack changer the last 24 hours. He was noted to have some gastritis without any high- risk erosions or ulcers noted on the endoscopy on 11/15/18. Discussed with the patient and his that I suspect the most likely source of the bleeding is related to the PEG tract in setting of anticoagulation. It appears hemostasis has been achieved at this point, which may be related to his anticoagulation having been temporarily discontinued. I think it is appropriate to continue to monitor for now. - Recommend IV PPI q.12 hours on the off-change there is upper GI tract bleeding. - Recommend caution with anticoagulation, although it is difficult to say that there is an absolute contraindication to anticoagulation at this point. The team is in discussion with providers from several specialties to determine his anticoagulation plan. A temporary pause in the anticoagulation while the PEG tube tract heals may be the best course of action. - Given his current stability, trickle tube feeds can be reinstated with close monitoring. - If recurrent coffee-ground emesis or bleeding from the PEG tube site +/- ongoing drop in hemoglobin, then I would consider repeating an EGD. Thank you very much for this consult. GI will continue to follow along. [id number]/[facility] #: [id number] [facility]. [facility] MEMORIAL HOSPITALDavid
[2018-11-22] MEDS: Carvedilol TAB* 3.125 MG G TUBE SCH (21:29)
[2018-11-22] MEDS: Latanoprost 0.005%* 2.5 ml BTL BOTH EYES SCH (21:30)
[2018-11-23 05:07] LABS: Hematocrit 22 % (42-52); Hemoglobin 7.1 g/dL (14.0-18.0); Mean Corpuscular HGB Conc 33 g/dL (31-36); Mean Corpuscular Hemoglobin 30 pg (27-31); Mean Corpuscular Volume 91 fL (80-94); Mean Platelet Volume 11.6 fL (7.4-10.4); Platelet Count 88 10^3/uL (150-450); Red Blood Count 2.38 10^6 /uL (4.18-5.48); Red Cell Distribution Width 19 % (10-15)
[2018-11-23 05:13] LABS: INR 1.37 (0.82-1.09)
--- NOTE | 2018-11-23 09:22 | PN ---
Progress Note - Progress Note Date of Service: 11/23/18 SOAP: Subjective: Patient well known to our service. 78 yo M w MDS with recent stable counts and baseline Hb ~10-11, plts in the 70s-80s, off all support factors, with recurrent CVAs who was admitted in October with sepsis from aspiration PNA. he was noted to be dysphagic and eventually had PEG placement on 11/15/2018. At that time there was evidence of chronic gastritis but no active bleeding. He was started back on coumadin with a lovenox bridge. Prior to discharge he was noted to have some red oozing around the PEG site managed with pressure bandage. He was discharged to a SNF however later in the evening had coffee ground emesis and blood from his PEG and so was readmitted the same day. His anticoagulation was held 2/2 active bleeding. His Hb has trended down to 7 this am, with active blood around his PEG tube and clots removed overnight from stomach checking residuals. GI has been consulted and feels most likely etiology is tract bleeding on anticoagulation. Hematology is being consulted to comment on safety of re-anticoagulation to decrease stroke risk. Objective: Vital Signs Temp Pulse Resp BP Pulse Ox 99.3 F 100 20 102/47 99 11/23/18 07:40 11/23/18 07:40 11/23/18 07:40 11/23/18 07:40 11/23/18 07:40 sitting up mumbling, only partially coherent OP moist III/ JAZZY CTA anteriorly soft NT, active blood around PEG no le edema dense left hemiparesis confused Laboratory Results - last 24 hr 11/21/18 11/22/18 11/22/18 22:55 09:47 14:40 WBC RBC Hgb 7.5 L Hct 23 L MCV MCH MCHC RDW Plt Count MPV Hem Pathologist Commnt INR (Anticoag Therapy) Urine Color Yellow Urine Appearance Cloudy Urine pH 5.0 Ur Specific [place] 1.026 Urine Protein Negative Urine Ketones Negative Urine Blood Negative Urine Nitrate Negative Urine Bilirubin Negative Urine Urobilinogen Negative Ur Leukocyte Esterase Negative Urine Glucose Negative Urine Ascorbic Acid * A 11/23/18 11/23/18 04:06 04:06 WBC 3.0 L RBC 2.38 L Hgb 7.1 L Hct 22 L MCV 91 MCH 30 MCHC 33 RDW 19 H Plt Count 88 L MPV 11.6 H Hem Pathologist Commnt INR (Anticoag Therapy) 1.37 H Urine Color Urine Appearance Urine pH Ur Specific [place] Urine Protein Urine Ketones Urine Blood Urine Nitrate Urine Bilirubin Urine Urobilinogen Ur Leukocyte Esterase Urine Glucose Urine Ascorbic Acid Assessment: Complicated 78 yo M w MDS, stable over last year, recurrent strokes managed with ASA and coumadin with the addition of a recent lovenox bridge presenting with active GI bleeding, though unclear if this is from his PEG tract or intrinsic GI (the former is favored). With active bleeding and a falling hemoglobin I do not think he can be safely anticoagulated at this time for stroke risk reduction. Obviously he is at high risk of a recurrent stroke, however he is actively bleeding and this "trumps" prevention. Ideally if this is related to poor wound healing he can be given a period of time off of antiocoagulation to allow this to heal and then be resumed carefully with lovenox alone until it is clear that he is not bleeding. Then ASA and coumadin could be added. His caregiver understands that this is a complicated situation with no good solution.
[2018-11-23] MEDS: Sertraline* 50 MG TAB G TUBE SCH (10:39)
[2018-11-23] MEDS: Pantoprazole IV* 40 MG IV SCH ×2 (10:40→21:43)
[2018-11-23] MEDS: Carvedilol TAB* 3.125 MG G TUBE SCH ×2 (10:40→21:43)
--- NOTE | 2018-11-23 11:01 | PN ---
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 VSS Labs: Hemoglobin 7, some scant bleeding from PEG site and some clots in residuals overnight, VSS-no documented fever This morning, oriented to name and year as well as hospital, complains of no pain, has questions he reports but doesn't want me to hear them. In consultation with GI, heme, and raphaelide to neuro we discuss holding AC for a week to let tract heal, then possible resuming with Lovenox in future. Hgb drifting down, will transfuse x 1 today. LINE DIRECTOR following, still aspirating on nectar thick. Objective Active Medications: Albuterol/Ipratropium (Duoneb (Albuterol 2.5 Mg/Ipratropium 0.5 Mg)) 1 neb INH [id number] AWAKE PRN PRN Reason: WHEEZING Ascorbic Acid (Vitamin C Tab*) 500 mg G TUBE EVERY OTHER DAY [facility] Atorvastatin Calcium (Lipitor*) 10 mg G TUBE QPM [facility] Last Admin: 11/22/18 18:04 Dose: 10 mg Bisacodyl (Dulcolax Supp*) 10 mg [place] DAILY PRN PRN Reason: no bm in 3 days Carvedilol (Coreg Tab*) 1.5625 mg G TUBE BID [facility] Last Admin: 11/23/18 10:40 Dose: 1.5625 mg Influenza Virus Vaccine (Fluarix Quad [id number] Syr) 0.5 ml IM .ONCE ONE Stop: 11/24/18 09:01 Latanoprost (Xalatan 0.005%*) 1 drop BOTH EYES BEDTIME [facility]; Protocol Last Admin: 11/22/18 21:30 Dose: 1 drop Ondansetron HCl (Zofran Inj*) 4 mg IV Q4H PRN PRN Reason: NAUSEA/VOMITING Last Admin: 11/23/18 07:17 Dose: 4 mg Pantoprazole Sodium (Protonix Iv*) 40 mg IV Q12H [facility] Last Admin: 11/23/18 10:40 Dose: 40 mg Senna (Senokot 8.6 Mg Tab*) 2 tab G TUBE BEDTIME PRN PRN Reason: CONSTIPATION Sertraline HCl (Zoloft*) 150 mg G TUBE DAILY [facility] Last Admin: 11/23/18 10:39 Dose: 150 mg Sodium Chloride (Sodium Chloride 0.65% Nasal [place]*) 1 spray BOTH NARES Q4H PRN PRN Reason: CONGESTION Vital Signs - 8 hr 11/23/18 11/23/18 11/23/18 04:23 07:40 09:43 Temperature 98.3 F 99.3 F Pulse Rate 101 100 Respiratory 16 20 20 Rate Blood Pressure 127/54 102/47 (mmHg) O2 Sat by Pulse 96 99 Oximetry Oxygen Devices in Use Now: Nasal Cannula Appearance: Pleasant man in NAD, L sided facial droop Eyes: No Scleral Icterus, PERRLA Ears/Nose/Mouth/Throat: Mucous Membranes Moist Respiratory: Clear to Auscultation Cardiovascular: - - s1s2 3/6 JAZZY Abdominal: NL Sounds; No Tenderness; No Distention, No Hepatosplenomegaly, - - PEG tube w scant bleeding Lymphatic: No Cervical Adenopathy Extremities: No Edema Skin: No Rash or Ulcers Neurological: - - Oriented to self and place, L sided weakness at baseline Result Diagrams: 11/23/18 04:06 11/22/18 05:21 Additional Lab and Data: Microbiology and Other Data: Microbiology 11/21/18 23:12 Stool Occult Blood (LILI) - Final Stool Assess/Plan/Problems-Billing Assessment: 78M PMH 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 - Patient Problems (1) Nausea and vomiting Current Visit: No Status: Acute Code(s): R11.2 - NAUSEA WITH VOMITING, UNSPECIFIED SNOMED Code(s): 18945965 Comment: - Resolved - One episode prior to admission per EMS report which is what prompted his readmissoin (bleeding and one episode of emisis), but no further symptoms - D/C Zosyn, no witnessed vomiting (2) Acute blood loss anemia Current Visit: No Status: Acute Code(s): D62 - ACUTE POSTHEMORRHAGIC ANEMIA SNOMED Code(s): 513018939 Comment: - Has anemia at baseline related to his myelodyplastic syndrome, mild bleeding from PEG site, also on AC for frequent stroke and fib. Suspect this is external bleeding - On PPI IV BID, will discuss if any intervention to GI - Needs to have risk benefit discussion with family about terminal supervisor stopping AC - Hgb 7 down from 8.4, VSS, will transfuse 1 U today - Continue to monitor. (3) H/O: CVA (cerebrovascular accident) Current Visit: No Status: Chronic Code(s): Z86.73 - PRSNL HX OF TIA (TIA), AND CEREB INFRC W/O RESID DEFICITS SNOMED Code(s): 435378815 Comment: - Multiple prior infarcts, 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, MRI recently hsows no new stroke accounting for dysphagia - HAS-BLED score is 4 indicating an 8.9% risk of bleeds per 100 patient years; CHADS-VASC2 score is 6 indicating a 9.7% risk of stroke per year - Residual defecit of mild cognitive impariment, some L sided weakness - on coumadin for multiple CVAs, held now (4) Chronic systolic congestive heart failure Current Visit: No Status: Acute Code(s): I50.22 - CHRONIC SYSTOLIC ( CONGESTIVE) HEART FAILURE SNOMED Code(s): 339134713 Comment: - Repeat Echo on 11/12, EF 30% - carvedilol, statin, resume, hold asa - reevalaute need for additional lasix daily (5) Dysphagia Current Visit: No Status: Acute Code(s): R13.10 - DYSPHAGIA, UNSPECIFIED SNOMED Code(s): 12730348 Comment: - Had an episode of aspiration on 11/03/18, 11/19 - Failed swallow eval x2, can rediscuss with speech to determine if baseline has improved - PPN initiated as short term solution with PEG, restart at 20cc, aim to get to goal of 60cc (6) Myelodysplasia (myelodysplastic syndrome) Current Visit: No Status: Acute Code(s): D46.9 - MYELODYSPLASTIC SYNDROME, UNSPECIFIED SNOMED Code(s): 001362090 Comment: - counts are at baseline - Bleeding post procedure 11/16 - Plaquenil being held (7) Coronary artery disease Current Visit: No Status: Chronic Priority: Medium Code(s): I25.10 - ATHSCL HEART DISEASE OF [place] CORONARY ARTERY W/O ANG PCTRS SNOMED Code(s): 34063790 Comment: - With history of CABG - resume statin, BB, holding asa - Continue tele (8) Dyslipidemia Current Visit: No Status: Chronic Code(s): E78.5 - HYPERLIPIDEMIA, UNSPECIFIED SNOMED Code(s): 023060007 Comment: - Continue statin. (9) MARY (obstructive sleep apnea) Current Visit: No Status: Chronic Code(s): G47.33 - OBSTRUCTIVE SLEEP APNEA (ADULT) (PEDIATRIC) SNOMED Code(s): 71511515 Comment: - Currently untreated (10) Depression Current Visit: No Status: Acute Code(s): F32.9 - MAJOR DEPRESSIVE DISORDER, SINGLE EPISODE, UNSPECIFIED SNOMED Code(s): 06079232 Comment: - Holding home sertraline (11) Gout Current Visit: No Status: Chronic Priority: Medium Onset Date: 10/31/13 Code(s): M10.9 - GOUT, UNSPECIFIED SNOMED Code(s): 56917243 Comment: - No acitve flare (12) DVT prophylaxis Current Visit: No Status: Acute Code(s): MQG8364 - SNOMED Code(s): 808450800 Comment: - On hold (13) Full code status Current Visit: No Status: Acute Code(s): Z78.9 - OTHER SPECIFIED HEALTH STATUS SNOMED Code(s): 457273162 Comment: - Recently changed on this admission, long discussion with his and she will discuss with his daughter, they currently defer to full - she reports will revisit this discussion with me this afternoon Status and Disposition: Transfer to [facility] when meeting TF goals
[2018-11-23] MEDS: Atorvastatin* 10 MG TAB G TUBE SCH (17:50)
--- NOTE | 2018-11-23 18:06 | PN ---
Hospitalist Progress Note Date of Service: 11/23/18 Spoke with family at bedside, continue to discuss Jo-Ann's difficult situation. We have opted to temporarily hold the AC, see if he can stop bleeding from his PEG site and attempt to resume. We discuss his overall wishes and Angeles feels he usually in the past would have been willing to give up some independence in exchange for more time, she is feeling unsure about his ability to eat, whether he would want to give that up, and in that context she will continue discussions with family. We also re discuss MOLST wishes as she feels her code reversal was done in a way where she wanted to be conservative. She feels DNR is most appropriate and has discussed with his daughter Maryann. They would want trial intubation, and clearly trial feeding tube. She is understanding of the risks involved and is willing to take those risks.
[2018-11-23 20:53] LABS: Hematocrit 25 % (42-52); Hemoglobin 8.1 g/dL (14.0-18.0)
[2018-11-23] MEDS: Latanoprost 0.005%* 2.5 ml BTL BOTH EYES SCH (21:50)
[2018-11-24 05:09] LABS: Hematocrit 22 % (42-52); Hemoglobin 7.2 g/dL (14.0-18.0); Mean Corpuscular HGB Conc 32 g/dL (31-36); Mean Corpuscular Hemoglobin 29 pg (27-31); Mean Corpuscular Volume 90 fL (80-94); Mean Platelet Volume 10.9 fL (7.4-10.4); Platelet Count 87 10^3/uL (150-450); Red Blood Count 2.45 10^6 /uL (4.18-5.48); Red Cell Distribution Width 18 % (10-15); White Blood Count 2.8 10^3/uL (3.5-10.8)
[2018-11-24 05:18] LABS: BUN/Creatinine Ratio 44.7 (8-20); Calcium 8.6 mg/dL (8.6-10.3); EGFR African American 93.4 (>60); EGFR Non-African American 77.2 (>60); Potassium 3.8 mmol/L (3.5-5.0)
[2018-11-24 05:24] LABS: INR 1.31 (0.82-1.09)
--- NOTE | 2018-11-24 07:32 | PN ---
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 VSS Labs: Hemoglobin again drifting down after 1 U PRBC responded appropriately then this morning again down, BUN elevated This morning, he has some garbled speech but asks about results of blood transfusion, needs repeating to reorient to situation but aware he is in hospital and aware of himself. No c/o pain. Family updated at bedside. Objective Active Medications: Albuterol/Ipratropium (Duoneb (Albuterol 2.5 Mg/Ipratropium 0.5 Mg)) 1 neb INH [id number] AWAKE PRN PRN Reason: WHEEZING Ascorbic Acid (Vitamin C Tab*) 500 mg G TUBE EVERY OTHER DAY [facility] Atorvastatin Calcium (Lipitor*) 10 mg G TUBE QPM [facility] Last Admin: 11/23/18 17:50 Dose: 10 mg Bisacodyl (Dulcolax Supp*) 10 mg [place] DAILY PRN PRN Reason: no bm in 3 days Carvedilol (Coreg Tab*) 1.5625 mg G TUBE BID [facility] Last Admin: 11/23/18 21:43 Dose: 1.5625 mg Influenza Virus Vaccine (Fluarix Quad [id number] Syr) 0.5 ml IM .ONCE ONE Stop: 11/24/18 09:01 Latanoprost (Xalatan 0.005%*) 1 drop BOTH EYES BEDTIME [facility]; Protocol Last Admin: 11/23/18 21:50 Dose: 1 drop Ondansetron HCl (Zofran Inj*) 4 mg IV Q4H PRN PRN Reason: NAUSEA/VOMITING Last Admin: 11/23/18 07:17 Dose: 4 mg Pantoprazole Sodium (Protonix Iv*) 40 mg IV Q12H [facility] Last Admin: 11/23/18 21:43 Dose: 40 mg Senna (Senokot 8.6 Mg Tab*) 2 tab G TUBE BEDTIME PRN PRN Reason: CONSTIPATION Sertraline HCl (Zoloft*) 150 mg G TUBE DAILY [facility] Last Admin: 11/23/18 10:39 Dose: 150 mg Sodium Chloride (Sodium Chloride 0.65% Nasal [place]*) 1 spray BOTH NARES Q4H PRN PRN Reason: CONGESTION Vital Signs - 8 hr 11/24/18 11/24/18 03:08 07:15 Temperature 99.1 F 98.1 F Pulse Rate 96 96 Respiratory 16 20 Rate Blood Pressure 119/52 111/50 (mmHg) O2 Sat by Pulse 94 93 Oximetry Oxygen Devices in Use Now: Nasal Cannula Appearance: Pleasant man in NAD, L sided weakness and facial droop Eyes: No Scleral Icterus, PERRLA Ears/Nose/Mouth/Throat: - - Sig secretions Neck: NL Appearance and Movements; NL JVP, Trachea Midline Respiratory: Symmetrical Chest Expansion and Respiratory Effort, - - Upper airway sounds Cardiovascular: - - 4/6 JAZZY Abdominal: NL Sounds; No Tenderness; No Distention, No Hepatosplenomegaly, - - PEG site CDI Lymphatic: No Cervical Adenopathy Extremities: No Edema Skin: No Rash or Ulcers Neurological: - - Oriented to self and place, garbled and quiet speech Lines/Tubes/Other Access: Clean, Dry and Intact Percuteneous Feeding Tube Result Diagrams: 11/24/18 07:45 11/24/18 04:19 Additional Lab and Data: Microbiology and Other Data: Microbiology 11/21/18 23:12 Stool Occult Blood (LILI) - Final Stool Assess/Plan/Problems-Billing Assessment: 78M PMH 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 - Patient Problems (1) Nausea and vomiting Current Visit: No Status: Acute Code(s): R11.2 - NAUSEA WITH VOMITING, UNSPECIFIED SNOMED Code(s): 93199619 Comment: - Resolved - One episode prior to admission per EMS report which is what prompted his readmissoin (bleeding and one episode of emisis), but no further symptoms - D/C Zosyn, no witnessed vomiting (2) Acute blood loss anemia Current Visit: No Status: Acute Code(s): D62 - ACUTE POSTHEMORRHAGIC ANEMIA SNOMED Code(s): 471484430 Comment: - Has anemia at baseline related to his myelodyplastic syndrome, mild bleeding from PEG site, also on AC for frequent stroke and fib. Suspect this is external bleeding, though possibly gastritis as it has continued into hospital day 3 - On PPI IV BID, re consult to GI today 11/24 - Holding AC at least for 7 days - Hgb 7 down from 8.1, VSS, s/p 1UPRBC on 11/23, repeat 1 U 11/24 (3) H/O: CVA (cerebrovascular accident) Current Visit: No Status: Chronic Code(s): Z86.73 - PRSNL HX OF TIA (TIA), AND CEREB INFRC W/O RESID DEFICITS SNOMED Code(s): 942877619 Comment: - Multiple prior infarcts, 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, MRI recently hsows no new stroke accounting for dysphagia - HAS-BLED score is 4 indicating an 8.9% risk of bleeds per 100 patient years; CHADS-VASC2 score is 6 indicating a 9.7% risk of stroke per year - Residual defecit of mild cognitive impariment, some L sided weakness - on coumadin for multiple CVAs, held now (4) Chronic systolic congestive heart failure Current Visit: No Status: Acute Code(s): I50.22 - CHRONIC SYSTOLIC ( CONGESTIVE) HEART FAILURE SNOMED Code(s): 128120113 Comment: - Repeat Echo on 11/12, EF 30% - carvedilol, statin, resume, hold asa - reevalaute need for additional lasix daily (5) Dysphagia Current Visit: No Status: Acute Code(s): R13.10 - DYSPHAGIA, UNSPECIFIED SNOMED Code(s): 02007749 Comment: - Had an episode of aspiration on 11/03/18, 11/19 - Failed swallow eval x2, continues to fail - PPN initiated as short term solution with PEG, titrated to 30cc, but holding now, D5 25cc/hr while on hold at pts request (6) Myelodysplasia (myelodysplastic syndrome) Current Visit: No Status: Acute Code(s): D46.9 - MYELODYSPLASTIC SYNDROME, UNSPECIFIED SNOMED Code(s): 981231013 Comment: - Plaquenil being held (7) Coronary artery disease Current Visit: No Status: Chronic Priority: Medium Code(s): I25.10 - ATHSCL HEART DISEASE OF [place] CORONARY ARTERY W/O ANG PCTRS SNOMED Code(s): 02063664 Comment: - With history of CABG - resume statin, BB, holding asa - Continue tele (8) Dyslipidemia Current Visit: No Status: Chronic Code(s): E78.5 - HYPERLIPIDEMIA, UNSPECIFIED SNOMED Code(s): 181676409 Comment: - Resume statin. (9) MARY (obstructive sleep apnea) Current Visit: No Status: Chronic Code(s): G47.33 - OBSTRUCTIVE SLEEP APNEA (ADULT) (PEDIATRIC) SNOMED Code(s): 17142431 Comment: - Currently untreated (10) Depression Current Visit: No Status: Acute Code(s): F32.9 - MAJOR DEPRESSIVE DISORDER, SINGLE EPISODE, UNSPECIFIED SNOMED Code(s): 70808458 Comment: - Home sertraline restarted (11) Gout Current Visit: No Status: Chronic Priority: Medium Onset Date: 10/31/13 Code(s): M10.9 - GOUT, UNSPECIFIED SNOMED Code(s): 41750944 Comment: - No acitve flare (12) DVT prophylaxis Current Visit: No Status: Acute Code(s): LOT0377 - SNOMED Code(s): 310001920 Comment: - On hold (13) DNR (do not resuscitate) Current Visit: No Status: Acute Comment: - See discussion from 11/23 in blank prog note Status and Disposition: Likelt back to [facility] early next week of 11/27
[2018-11-24 07:58] LABS: Hematocrit 22 % (42-52); Hemoglobin 7.2 g/dL (14.0-18.0)
[2018-11-24] MEDS ORDERED: Influenza VAC *QUAD* 2019-20* 0.5 ML SYRINGE IM ONE (09:00)
[2018-11-24] MEDS: Sertraline* 50 MG TAB G TUBE SCH (09:59)
[2018-11-24] MEDS: Ascorbic Acid TAB* 500 MG G TUBE SCH (09:59)
[2018-11-24] MEDS: Pantoprazole IV* 40 MG IV SCH ×2 (09:59→22:09)
[2018-11-24] MEDS: Carvedilol TAB* 3.125 MG G TUBE SCH ×2 (10:02→21:17)
[2018-11-24] MEDS ORDERED: D5W 1/2 NS 1000 ML BAG* 1,000 ML IV SCH (14:00)
[2018-11-24] MEDS ORDERED: Midazolam* 1 MG/ML 10 ML VIAL (10 MG) ONE (14:19)
[2018-11-24] MEDS ORDERED: fentaNYL* 50 MCG/ML 2 ML VIAL (100 MCG VIAL) ONE (14:19)
[2018-11-24] MEDS: Atorvastatin* 10 MG TAB G TUBE SCH (18:21)
[2018-11-24 20:12] LABS: Hematocrit 24 % (42-52); Hemoglobin 7.8 g/dL (14.0-18.0)
[2018-11-24] MEDS: Latanoprost 0.005%* 2.5 ml BTL BOTH EYES SCH (21:17)
--- NOTE | 2018-11-25 00:52 | PRO ---
CC: Dr. Newton; Dr. Drew PROCEDURE REPORT: DATE OF PROCEDURE: 11/24/18 PROCEDURE: EGD. INPATIENT PROVIDER: IDr. Newton. PRIMARY PROVIDER: Dr. Drew. INDICATIONS: The patient had a PEG tube placed on 11/15/18. He has intermittent bleeding from the tract site. There has also been some coffee- ground material and clot aspirated from the tube tract. He was noted to have a down trending CBC despite receiving a unit of blood. EGD planned to ensure no luminal source of bleeding as my suspicion is that this is all related to the PEG tract and his anticoagulation. His anticoagulation has now been held over the last few days. MEDICATIONS GIVEN: 1. Midazolam 2 mg IV. 2. Fentanyl 25 mcg IV. DESCRIPTION OF PROCEDURE: Full disclosure of risks was reviewed with the patient as detailed on the consent form. The patient was placed in the left lateral decubitus position and monitored with continuous pulse oximetry, capnography, interval blood pressure monitoring, and direct observation. A bite -block was placed between the patient's teeth. An adult gastroscope was then inserted into the patient's mouth and advanced down the esophagus, into the stomach, and into the distal duodenum. Findings and interventions are described below. FINDINGS: Esophagus was a tubular structure without rings or strictures. GE junction was unremarkable. Scope was advanced into the stomach. There was no fresh or old blood seen in the stomach. PEG bumper was visualized and appeared unremarkable. The bumper did not appear to be buried in the mucosa. There was no fresh or old blood seen from around the PEG bumper site. There was mild erythematous appearance to gastric mucosa without erosions or ulcers. Scope was then advanced into the duodenum to at least the third portion. No fresh or old blood seen. There was balbuena bilious fluid. Scope was then withdrawn from the patient. The patient tolerated the procedure well and was recovered in the GI recovery area. IMPRESSION: 1. Complete upper endoscopy to distal duodenum. 2. No fresh or old blood seen on exam. No source of bleeding identified. I remain most suspicious for intermittent bleeding from the PEG tract itself. This does seem to have resolved in the setting of his anticoagulation having been stopped. Would continue to monitor for now. 3. Can decrease to PPI IV once daily for stress ulcer prophylaxis this is felt to be indicated by primary team. 4. Can restart tube feeds. Thank you very much for this consult. Please notify GI if any acute clinical changes or concerns. [id number]/CPS #: [id number]
[2018-11-25] MEDS: Senna TAB 8.6 mg* TAB G TUBE PRN (03:44)
--- NOTE | 2018-11-25 06:53 | PN ---
Subjective Date of Service: 11/25/18 Interval History: HD5 11/25, Bounced back from [facility] for bleeding at PEG tube site 78M PMH CVAs w residual vasc dementia and L sided weakness on AC for long hx of crytpogenic stroke, CAD, MARY not treated, HTN, and MDS, HFrEF (EF 30%), , recent admission for oral dysphasia after a long period of malnutrition, aspiration PNA and sepsis, and likely post stroke complication with family deciding for PEG placement on 11/16, hospitalized for 20 days, d/c on 11/21 readmitted for bleeding from PEG tube site VSS Overnight, brief run NSVT, also desats while sleeping most likel will give mag and d/c tele Labs: Hemoglobin again drifting down after 1 U PRBC responded appropriately Imaging: Scope yesterday revealed no source of bleed This morning, pt is resting but easily roused. He is AOx2-3, soft spoken from secretions and [place] language not being portuguese. He has no c/o pain, he is aware of scope results, we again discuss inability to eat, he asks what would happen if we stop the tube feeds and we discuss eventually he would . He wants to contemplate this but at this time reports he would like to continue. We discuss next steps, increase TF, gradually restarting AC. Objective Active Medications: Albuterol/Ipratropium (Duoneb (Albuterol 2.5 Mg/Ipratropium 0.5 Mg)) 1 neb INH [id number] AWAKE PRN PRN Reason: WHEEZING Ascorbic Acid (Vitamin C Tab*) 500 mg G TUBE EVERY OTHER DAY [facility] Last Admin: 11/24/18 09:59 Dose: 500 mg Atorvastatin Calcium (Lipitor*) 10 mg G TUBE QPM [facility] Last Admin: 11/24/18 18:21 Dose: 10 mg Bisacodyl (Dulcolax Supp*) 10 mg [place] DAILY PRN PRN Reason: no bm in 3 days Carvedilol (Coreg Tab*) 1.5625 mg G TUBE BID [facility] Last Admin: 11/24/18 21:17 Dose: 1.5625 mg Latanoprost (Xalatan 0.005%*) 1 drop BOTH EYES BEDTIME [facility]; Protocol Last Admin: 11/24/18 21:17 Dose: 1 drop Ondansetron HCl (Zofran Inj*) 4 mg IV Q4H PRN PRN Reason: NAUSEA/VOMITING Last Admin: 11/23/18 07:17 Dose: 4 mg Pantoprazole Sodium (Protonix Iv*) 40 mg IV Q12H [facility] Last Admin: 11/24/18 22:09 Dose: 40 mg Senna (Senokot 8.6 Mg Tab*) 2 tab G TUBE BEDTIME PRN PRN Reason: CONSTIPATION Last Admin: 11/25/18 03:44 Dose: 2 tab Sertraline HCl (Zoloft*) 150 mg G TUBE DAILY [facility] Last Admin: 11/24/18 09:59 Dose: 150 mg Sodium Chloride (Sodium Chloride 0.65% Nasal [place]*) 1 spray BOTH NARES Q4H PRN PRN Reason: CONGESTION Vital Signs - 8 hr 11/24/18 11/25/18 23:07 03:13 Temperature 97.9 F 97.4 F Pulse Rate 84 90 Respiratory 14 14 Rate Blood Pressure 106/51 109/53 (mmHg) O2 Sat by Pulse 100 100 Oximetry Oxygen Devices in Use Now: Nasal Cannula Appearance: Soft spoken man in bed Eyes: No Scleral Icterus, PERRLA Ears/Nose/Mouth/Throat: NL Teeth, Lips, Gums, - - Secretions, dry Neck: NL Appearance and Movements; NL JVP Respiratory: Symmetrical Chest Expansion and Respiratory Effort, Clear to Auscultation Cardiovascular: RRR, - - 3/6 JAZZY Abdominal: NL Sounds; No Tenderness; No Distention, No Hepatosplenomegaly, - - PEG Lymphatic: No Cervical Adenopathy Extremities: No Edema Skin: No Rash or Ulcers Neurological: - - AOx2-3 (name, [facility], not really to situation) Lines/Tubes/Other Access: Clean, Dry and Intact Percuteneous Feeding Tube Result Diagrams: 11/25/18 07:32 11/24/18 04:19 Additional Lab and Data: Microbiology and Other Data: Microbiology 11/21/18 23:12 Stool Occult Blood (LILI) - Final Stool Assess/Plan/Problems-Billing Assessment: 78M PMH CVAs w residual vasc dementia and L sided weakness on AC for long hx of crytpogenic stroke, CAD, MARY not treated, HTN, and MDS, HFrEF (EF 30%), , recent admission for oral dysphasia after a long period of malnutrition, aspiration PNA and sepsis, and likely post stroke complication with family deciding for PEG placement on 11/16, hospitalized for 20 days, d/c on 11/21 readmitted for bleeding from PEG tube site, holding AC - Patient Problems (1) Acute blood loss anemia Current Visit: No Status: Acute Code(s): D62 - ACUTE POSTHEMORRHAGIC ANEMIA SNOMED Code(s): 328810473 Comment: - Has anemia at baseline related to his myelodyplastic syndrome, mild bleeding from PEG site, also was on AC for frequent stroke, AC held since 11/22. - EGD on 11/24 unrevealing, other source of bleeding could be from MDS? - On PPI IV BID - Holding AC at least for 7 days - Hgb 7 down from 8.1, VSS, s/p 1UPRBC on 11/23, repeat 1 U 11/24, at 7.8, will do BID H/H and if stable tonight will aim for TF to goal and go to daily (2) H/O: CVA (cerebrovascular accident) Current Visit: No Status: Chronic Code(s): Z86.73 - PRSNL HX OF TIA (TIA), AND CEREB INFRC W/O RESID DEFICITS SNOMED Code(s): 186326157 Comment: - Multiple prior infarcts, 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, MRI on last hospitlizatoin recently shows no new stroke accounting for dysphagia - HAS-BLED score is 4 indicating an 8.9% risk of bleeds per 100 patient years; CHADS-VASC2 score is 6 indicating a 9.7% risk of stroke per year - If restarting AC, would do Lovenox alone w. out bridge per recommendation of heme - Residual defecit of mild cognitive impariment, some L sided weakness - on coumadin for multiple CVAs, held now (3) Chronic systolic congestive heart failure Current Visit: No Status: Acute Code(s): I50.22 - CHRONIC SYSTOLIC ( CONGESTIVE) HEART FAILURE SNOMED Code(s): 509590111 Comment: - Repeat Echo on 11/12, EF 30% - carvedilol, statin, resume, hold asa - reevalaute need for additional lasix daily, not on it as a home med (4) Dysphagia Current Visit: No Status: Acute Code(s): R13.10 - DYSPHAGIA, UNSPECIFIED SNOMED Code(s): 47661463 Comment: - Had an episode of aspiration on 11/03/18, 11/19 - Failed swallow eval x2, continues to fail - PPN initiated as short term solution with PEG, held with bleeding, now resumed at 30 cc/hr (5) Myelodysplasia (myelodysplastic syndrome) Current Visit: No Status: Acute Code(s): D46.9 - MYELODYSPLASTIC SYNDROME, UNSPECIFIED SNOMED Code(s): 122015792 Comment: - Plaquenil restarted today (6) Coronary artery disease Current Visit: No Status: Chronic Priority: Medium Code(s): I25.10 - ATHSCL HEART DISEASE OF [place] CORONARY ARTERY W/O ANG PCTRS SNOMED Code(s): 97861063 Comment: - With history of CABG - resume statin, BB, holding asa - DC tele (7) Dyslipidemia Current Visit: No Status: Chronic Code(s): E78.5 - HYPERLIPIDEMIA, UNSPECIFIED SNOMED Code(s): 501829921 Comment: - Resume statin. (8) MARY (obstructive sleep apnea) Current Visit: No Status: Chronic Code(s): G47.33 - OBSTRUCTIVE SLEEP APNEA (ADULT) (PEDIATRIC) SNOMED Code(s): 34774489 Comment: - Currently untreated, accounting for overnight desats (9) Depression Current Visit: No Status: Acute Code(s): F32.9 - MAJOR DEPRESSIVE DISORDER, SINGLE EPISODE, UNSPECIFIED SNOMED Code(s): 82073094 Comment: - Home sertraline restarted (10) Gout Current Visit: No Status: Chronic Priority: Medium Onset Date: 10/31/13 Code(s): M10.9 - GOUT, UNSPECIFIED SNOMED Code(s): 96911043 Comment: - No active flare (11) DVT prophylaxis Current Visit: No Status: Acute Code(s): DXC9747 - SNOMED Code(s): 489640735 Comment: - On hold (12) DNR (do not resuscitate) Current Visit: No Status: Acute Comment: - See discussion from 11/23 in blank prog note Status and Disposition: Likelt back to [place] early next week of 11/27
[2018-11-25 07:42] LABS: Hematocrit 23 % (42-52); Hemoglobin 7.6 g/dL (14.0-18.0)
[2018-11-25] MEDS ORDERED: Magnesium Sulfate 2 GM IV* 2 GM/50 ML BAG IVPB ONE (08:49)
[2018-11-25] MEDS ORDERED: Ferrous Sulfate LIQ* 300 MG/5 ML UDC PO SCH (09:00)
[2018-11-25] MEDS ORDERED: Hydroxychloroquine TAB* 200 MG PO SCH (09:00)
[2018-11-25] MEDS ORDERED: Cyanocobalamin TAB* 500 MCG PO SCH (09:00)
[2018-11-25] MEDS: Ferrous Sulfate LIQ* 300 MG/5 ML UDC G TUBE SCH (09:37)
[2018-11-25] MEDS: Cyanocobalamin TAB* 500 MCG G TUBE SCH (09:38)
[2018-11-25] MEDS: Pantoprazole IV* 40 MG IV SCH ×2 (09:38→21:40)
[2018-11-25] MEDS: Sertraline* 50 MG TAB G TUBE SCH (09:38)
[2018-11-25] MEDS: Carvedilol TAB* 3.125 MG G TUBE SCH ×2 (09:39→21:39)
[2018-11-25] MEDS: Hydroxychloroquine TAB* 200 MG G TUBE SCH (09:39)
[2018-11-25] MEDS: Polyethylene Glycol 3350* 17 GM PACKET G TUBE SCH (09:41)
[2018-11-25] MEDS: Atorvastatin* 10 MG TAB G TUBE SCH (18:16)
[2018-11-25] MEDS: Latanoprost 0.005%* 2.5 ml BTL BOTH EYES SCH (21:40)
[2018-11-26 06:37] LABS: Hematocrit 23 % (42-52); Hemoglobin 7.5 g/dL (14.0-18.0)
[2018-11-26 06:40] LABS: INR 1.21 (0.82-1.09)
[2018-11-26 06:52] LABS: BUN/Creatinine Ratio 24.2 (8-20); Calcium 8.7 mg/dL (8.6-10.3); EGFR Non-African American 80.2 (>60)
--- NOTE | 2018-11-26 07:56 | PN ---
Subjective Date of Service: 11/26/18 Interval History: HD6 11/26, Bounced back from [facility] for bleeding at PEG tube site 78M PMH CVAs w residual vasc dementia and L sided weakness on AC for long hx of crytpogenic stroke, CAD, MARY not treated, HTN, and MDS, HFrEF(EF 30%), , recent admission for oral dysphasia after a long period of malnutrition, aspiration PNA and sepsis, and likely post stroke complication with family deciding for PEG placement on 11/16, hospitalized for 20 days, d/c on 11/21 readmitted for bleeding from PEG tube site VSS Overnight, did move to 4N, slightly soft BP. Labs: Hgb stable at 7.5 from yesterday, BMP stable Imaging: Scope 11/24 revealed no source of bleed in UGI tract This morning, awake alert no acute complaints, TF now at 40cc w/out residual, he denies pain, needs frequent explaining of situation but otherwise polite and well. Updated with POC. Objective Active Medications: Albuterol/Ipratropium (Duoneb (Albuterol 2.5 Mg/Ipratropium 0.5 Mg)) 1 neb INH [id number] AWAKE PRN PRN Reason: WHEEZING Ascorbic Acid (Vitamin C Tab*) 500 mg G TUBE EVERY OTHER DAY [facility] Last Admin: 11/24/18 09:59 Dose: 500 mg Atorvastatin Calcium (Lipitor*) 10 mg G TUBE QPM [facility] Last Admin: 11/25/18 18:16 Dose: 10 mg Bisacodyl (Dulcolax Supp*) 10 mg [place] DAILY PRN PRN Reason: no bm in 3 days Last Admin: 11/26/18 06:24 Dose: 10 mg Carvedilol (Coreg Tab*) 1.5625 mg G TUBE BID [facility] Last Admin: 11/25/18 21:39 Dose: 1.5625 mg Cyanocobalamin (Vitamin B12 Tab*) 1,000 mcg G TUBE DAILY [facility] Last Admin: 11/25/18 09:38 Dose: 1,000 mcg Ferrous Sulfate (Feosol Liq*) 325 mg G TUBE EVERY OTHER DAY [facility] Last Admin: 11/25/18 09:37 Dose: 325 mg Hydroxychloroquine Sulfate (Plaquenil Tab*) 400 mg G TUBE DAILY [facility] Last Admin: 11/25/18 09:39 Dose: 400 mg Latanoprost (Xalatan 0.005%*) 1 drop BOTH EYES BEDTIME [facility]; Protocol Last Admin: 11/25/18 21:40 Dose: 1 drop Ondansetron HCl (Zofran Inj*) 4 mg IV Q4H PRN PRN Reason: NAUSEA/VOMITING Last Admin: 11/23/18 07:17 Dose: 4 mg Pantoprazole Sodium (Protonix Iv*) 40 mg IV Q12H [facility] Last Admin: 11/25/18 21:40 Dose: 40 mg Polyethylene Glycol/Electrolytes (Miralax*) 17 gm G TUBE EVERY OTHER DAY [facility] Last Admin: 11/25/18 09:41 Dose: 17 gm Senna (Senokot 8.6 Mg Tab*) 2 tab G TUBE BEDTIME PRN PRN Reason: CONSTIPATION Last Admin: 11/25/18 03:44 Dose: 2 tab Sertraline HCl (Zoloft*) 150 mg G TUBE DAILY [facility] Last Admin: 11/25/18 09:38 Dose: 150 mg Sodium Chloride (Sodium Chloride 0.65% Nasal [place]*) 1 spray BOTH NARES Q4H PRN PRN Reason: CONGESTION Vital Signs - 8 hr 11/26/18 11/26/18 00:00 03:27 Temperature 97.2 F 98.5 F Pulse Rate 85 81 Respiratory 18 18 Rate Blood Pressure 96/45 100/45 (mmHg) O2 Sat by Pulse 97 95 Oximetry Oxygen Devices in Use Now: None Appearance: Pleasant man in NAD Eyes: No Scleral Icterus Ears/Nose/Mouth/Throat: - - In need of oral care Neck: NL Appearance and Movements; NL JVP, Trachea Midline Respiratory: Symmetrical Chest Expansion and Respiratory Effort, Clear to Auscultation Cardiovascular: - - 3/6 JAZZY Abdominal: NL Sounds; No Tenderness; No Distention, No Hepatosplenomegaly, - - PEG CDI Lymphatic: No Cervical Adenopathy Extremities: No Edema Skin: No Rash or Ulcers Neurological: Alert and Oriented x 3, - - Soft spoken Lines/Tubes/Other Access: Clean, Dry and Intact Percuteneous Feeding Tube Result Diagrams: 11/26/18 06:25 11/26/18 06:25 Additional Lab and Data: Microbiology and Other Data: Microbiology 11/21/18 23:12 Stool Occult Blood (LILI) - Final Stool Assess/Plan/Problems-Billing Assessment: 78M PMH CVAs w residual vasc dementia and L sided weakness on AC for long hx of crytpogenic stroke, CAD, MARY not treated, HTN, and MDS, HFrEF (EF 30%), , recent admission for oral dysphasia after a long period of malnutrition, aspiration PNA and sepsis, and likely post stroke complication with family deciding for PEG placement on 11/16, hospitalized for 20 days, d/c on 11/21 readmitted for bleeding from PEG tube site, holding AC - Patient Problems (1) Acute blood loss anemia Current Visit: No Status: Acute Code(s): D62 - ACUTE POSTHEMORRHAGIC ANEMIA SNOMED Code(s): 585854174 Comment: - Has anemia at baseline related to his myelodyplastic syndrome, mild bleeding from PEG site, also was on AC for frequent stroke, AC held since 11/22. - EGD on 11/24 unrevealing, likely source was poorly healing PEG TRACT not a true UGIB but bleeding from site in setting of AC - On PPI IV BID - Holding AC at least for 7 days from presentation, cautiosly restart on 11/27 - Hgb 7 down from 8.1, VSS, s/p 1UPRBC on 11/23, repeat 1 U 11/24, at 7.8, stable for 24 hours will aim for TF to goal and go to daily H/H (2) H/O: CVA (cerebrovascular accident) Current Visit: No Status: Chronic Code(s): Z86.73 - PRSNL HX OF TIA (TIA), AND CEREB INFRC W/O RESID DEFICITS SNOMED Code(s): 178459759 Comment: - Multiple prior infarcts, 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, MRI on last hospitlizatoin recently shows no new stroke accounting for dysphagia - HAS-BLED score is 4 indicating an 8.9% risk of bleeds per 100 patient years; CHADS-VASC2 score is 6 indicating a 9.7% risk of stroke per year - If restarting AC, would do Lovenox alone w. out bridge per recommendation of heme - Residual defecit of mild cognitive impariment, some L sided weakness - on coumadin for multiple CVAs, held now, resume AC 11/27 with lovenox only no wafarin (3) Chronic systolic congestive heart failure Current Visit: No Status: Acute Code(s): I50.22 - CHRONIC SYSTOLIC ( CONGESTIVE) HEART FAILURE SNOMED Code(s): 843526054 Comment: - Repeat Echo on 11/12, EF 30% - carvedilol, statin, resume, hold asa - reevalaute need for additional lasix daily, not on it as a home med (4) Dysphagia Current Visit: No Status: Acute Code(s): R13.10 - DYSPHAGIA, UNSPECIFIED SNOMED Code(s): 13129271 Comment: - Had an episode of aspiration on 11/03/18, 11/19 - Failed swallow eval x2, continues to fail - PPN initiated as short term solution with PEG, held with bleeding, now resumed at 40 cc/hr, will attempt to goal 60cc by end of day (5) Myelodysplasia (myelodysplastic syndrome) Current Visit: No Status: Acute Code(s): D46.9 - MYELODYSPLASTIC SYNDROME, UNSPECIFIED SNOMED Code(s): 864102680 Comment: - Plaquenil restarted (6) Coronary artery disease Current Visit: No Status: Chronic Priority: Medium Code(s): I25.10 - ATHSCL HEART DISEASE OF [place] CORONARY ARTERY W/O ANG PCTRS SNOMED Code(s): 49360438 Comment: - With history of CABG - resume statin, BB, holding asa - DC tele (7) Dyslipidemia Current Visit: No Status: Chronic Code(s): E78.5 - HYPERLIPIDEMIA, UNSPECIFIED SNOMED Code(s): 894605054 Comment: - Resume statin. (8) MARY (obstructive sleep apnea) Current Visit: No Status: Chronic Code(s): G47.33 - OBSTRUCTIVE SLEEP APNEA (ADULT) (PEDIATRIC) SNOMED Code(s): 39772367 Comment: - Currently untreated, accounting for overnight desats, O2 QHS (9) Depression Current Visit: No Status: Acute Code(s): F32.9 - MAJOR DEPRESSIVE DISORDER, SINGLE EPISODE, UNSPECIFIED SNOMED Code(s): 81687807 Comment: - Home sertraline restarted (10) Gout Current Visit: No Status: Chronic Priority: Medium Onset Date: 10/31/13 Code(s): M10.9 - GOUT, UNSPECIFIED SNOMED Code(s): 79540661 Comment: - No active flare (11) DVT prophylaxis Current Visit: No Status: Acute Code(s): TMG4508 - SNOMED Code(s): 599837737 Comment: - On hold (12) DNR (do not resuscitate) Current Visit: No Status: Acute Comment: - See discussion from 11/23 in blank prog note Status and Disposition: Likely back to [place] if can tolerate TF at 60cc hr and restarting Tx dose Lovenox with no bleeding, prognosis is poor generally and this has been discussed with family.
[2018-11-26] MEDS: Cyanocobalamin TAB* 500 MCG G TUBE SCH (08:40)
[2018-11-26] MEDS: Hydroxychloroquine TAB* 200 MG G TUBE SCH (08:41)
[2018-11-26] MEDS: Ascorbic Acid TAB* 500 MG G TUBE SCH (08:41)
[2018-11-26] MEDS: Sertraline* 50 MG TAB G TUBE SCH (08:41)
[2018-11-26] MEDS: Carvedilol TAB* 3.125 MG G TUBE SCH ×2 (08:42→21:17)
[2018-11-26] MEDS: Pantoprazole IV* 40 MG IV SCH ×2 (10:54→22:54)
--- NOTE | 2018-11-26 15:23 | PN ---
Hospitalist Progress Note Date of Service: 11/26/18 Off Service Note 11/26. Summary of hospital course to date 78M PMH CVAs w residual vasc dementia and L sided weakness on AC for long hx of crytpogenic stroke, CAD, MARY not treated, HTN, and MDS, HFrEF(EF 30%), , recent admission for oral dysphasia after a long period of malnutrition, aspiration PNA and sepsis (11/01-11/21), and likely post stroke complication with family deciding for PEG placement on 11/16, d/c on 11/21 readmitted 11/22 for bleeding from PEG tube site Hospital course by most active problems: #Anemia: He was initially admitted to ICU for acute blood loss anemia as coffee ground was seen in the tube in ER. Transferred out on HD 1 as Hgb 8.4->8, initially thought blood loss was coming from PEG tract itself, and held AC on , in consultation with GI who preformed scope on 11/24 it was thought source was from PEG tract alone, as EGD showed no active UGIB source. -Pt has recd 2UPRBC this hospitalization -Heme was consulted who recommended holding AC for one week, GI feels AC could be restarted, H/H has been stably low in setting of MDS but has had no further blood from PEG site or tube -FOBT on admission was positive unsurprisingly #Oral Dysphasia: New onset, most likely a decompensation of his baseline status , though the initial thought on 11/01 hospitalization was that he was weak and malnourished from a aspiration PNA and that he would recover his ability to swallow. He has worked closely with [facility] who notes some improvement though clearly still has OP dysphasia and inability to take any nutrition -Goal TF is 60cc hr -HAS NOT TOLERATED BOLUS TF in the past, Jorge can do continuous TF 60CC and can d/c at goal #MARY: no longer on CPAP 2/2 to aspiration risk, needs QHS O2 ONLY #CVA: Numerous, thought to be cryptogenic both vascular and arterial in source leading to thoughtful discussion between Dr. Drew and Dr. Fernandes about the risk of holding AC indefinitely, they feel the risk of stroke is high given he has had between 6 or 7 strokes since 2011. If he ultimately can not tolerate restarting AC 2/2 to slow occult bleed perhaps discussion about holding AC even longer (a month, two?) and ensuring that pts feels comfortable with the risk of further stroke in the interim. - Heme did recommend a shorter acting AC plan for when we do resume, Lovenox or a DOAC (essentially oral lovenox) would be ideal for short half life. Dr. Fernandes is out of town starting 11/27, could choose lovenox q12 for 1 to 2 weeks and then decision to re bridge to warfarin vs trial DOAC could be made with Denis. #GOC: Numerous discussions with Angeles pts , who has been in consultation wiht patients children, Jo-Ann is pleasant and AOx2-3 though he has not understood the gravity of these decompensation (e.g repeatedly needing reminding that he can not eat) leaving Angeles as the main decision maker. Her overall goals are for him to be well enough to return to home though has realistic expectations that this may not occur. Dispo: If tolerating goal TF and restarting AC on 11/27 could go as early as or 11/29--IF bleeds again after starting AC, decision to hold AC longer even for up to a month was discussed with and she would consider this understanding taking a risk he may stroke again
[2018-11-26] MEDS: Atorvastatin* 10 MG TAB G TUBE SCH (17:21)
[2018-11-26] MEDS: Latanoprost 0.005%* 2.5 ml BTL BOTH EYES SCH (21:18)
[2018-11-27] MEDS: Latanoprost 0.005%* 2.5 ml BTL BOTH EYES SCH ×2 (00:33→20:10)
[2018-11-27 08:01] LABS: Hematocrit 23 % (42-52); Hemoglobin 7.7 g/dL (14.0-18.0)
[2018-11-27] MEDS ORDERED: Enoxaparin(*) 80 MG/0.8 ML SYR SUBCUT SCH (09:00)
[2018-11-27] MEDS: Enoxaparin(*) 80 MG/0.8 ML SYR SUBCUT SCH ×2 (09:49→20:10)
[2018-11-27] MEDS: Ferrous Sulfate LIQ* 300 MG/5 ML UDC G TUBE SCH (09:50)
[2018-11-27] MEDS: Sertraline* 50 MG TAB G TUBE SCH (09:50)
[2018-11-27] MEDS: Carvedilol TAB* 3.125 MG G TUBE SCH ×2 (09:51→20:09)
[2018-11-27] MEDS: Hydroxychloroquine TAB* 200 MG G TUBE SCH (09:51)
[2018-11-27] MEDS: Cyanocobalamin TAB* 500 MCG G TUBE SCH (09:51)
[2018-11-27] MEDS: Pantoprazole IV* 40 MG IV SCH ×2 (09:52→20:31)
[2018-11-27] MEDS: Polyethylene Glycol 3350* 17 GM PACKET G TUBE SCH (09:52)
--- NOTE | 2018-11-27 14:06 | PN ---
Subjective Date of Service: 11/27/18 Interval History: Patient has complaints of being thirsty, and hungry. Tolerating tube feeds at goal. No diarrhea. Last BM yesterday. No bleeding from PEG site noted. At baseline before last 2 admissions, could bear some weight RT leg, transfer bed to chair Family History: Unchanged from Admission Social History: Unchanged from Admission Past Medical History: Unchanged from Admission Objective Active Medications: Albuterol/Ipratropium (Duoneb (Albuterol 2.5 Mg/Ipratropium 0.5 Mg)) 1 neb INH [id number] AWAKE PRN PRN Reason: WHEEZING Ascorbic Acid (Vitamin C Tab*) 500 mg G TUBE EVERY OTHER DAY [facility] Last Admin: 11/26/18 08:41 Dose: 500 mg Atorvastatin Calcium (Lipitor*) 10 mg G TUBE QPM [facility] Last Admin: 11/26/18 17:21 Dose: 10 mg Bisacodyl (Dulcolax Supp*) 10 mg [place] DAILY PRN PRN Reason: no bm in 3 days Last Admin: 11/26/18 06:24 Dose: 10 mg Carvedilol (Coreg Tab*) 1.5625 mg G TUBE BID [facility] Last Admin: 11/27/18 09:51 Dose: 1.5625 mg Cyanocobalamin (Vitamin B12 Tab*) 1,000 mcg G TUBE DAILY [facility] Last Admin: 11/27/18 09:51 Dose: 1,000 mcg Enoxaparin Sodium (Lovenox(*)) 70 mg SUBCUT Q12H [facility] Last Admin: 11/27/18 09:49 Dose: 70 mg Ferrous Sulfate (Feosol Liq*) 325 mg G TUBE EVERY OTHER DAY [facility] Last Admin: 11/27/18 09:50 Dose: 325 mg Hydroxychloroquine Sulfate (Plaquenil Tab*) 400 mg G TUBE DAILY [facility] Last Admin: 11/27/18 09:51 Dose: 400 mg Latanoprost (Xalatan 0.005%*) 1 drop BOTH EYES BEDTIME [facility]; Protocol Last Admin: 11/27/18 00:33 Dose: 1 drop Ondansetron HCl (Zofran Inj*) 4 mg IV Q4H PRN PRN Reason: NAUSEA/VOMITING Last Admin: 11/23/18 07:17 Dose: 4 mg Pantoprazole Sodium (Protonix Iv*) 40 mg IV Q12H [facility] Last Admin: 11/27/18 09:52 Dose: 40 mg Polyethylene Glycol/Electrolytes (Miralax*) 17 gm G TUBE EVERY OTHER DAY [facility] Last Admin: 11/27/18 09:52 Dose: 17 gm Senna (Senokot 8.6 Mg Tab*) 2 tab G TUBE BEDTIME PRN PRN Reason: CONSTIPATION Last Admin: 11/25/18 03:44 Dose: 2 tab Sertraline HCl (Zoloft*) 150 mg G TUBE DAILY [facility] Last Admin: 11/27/18 09:50 Dose: 150 mg Sodium Chloride (Sodium Chloride 0.65% Nasal [place]*) 1 spray BOTH NARES Q4H PRN PRN Reason: CONGESTION Vital Signs - 8 hr 11/27/18 11/27/18 08:00 12:00 Temperature 36.8 C 37.3 C Pulse Rate 80 80 Respiratory 24 24 Rate Blood Pressure 107/46 99/52 (mmHg) O2 Sat by Pulse 95 94 Oximetry Oxygen Devices in Use Now: None Appearance: awake, alert Neck: NL Appearance and Movements; NL JVP Respiratory: Symmetrical Chest Expansion and Respiratory Effort, Clear to Auscultation Cardiovascular: NL Sounds; No Murmurs; No JVD Abdominal: NL Sounds; No Tenderness; No Distention, No Hepatosplenomegaly, - - G tube intact Extremities: No Edema Neurological: - - dysarthric speech Nutrition: - - G-tube only Result Diagrams: 11/27/18 07:35 11/26/18 06:25 Microbiology and Other Data: Microbiology 11/22/18 05:33 Blood Venous Aerobic Blood Culture - Final 11/22/18 05:33 Blood Venous Blood Culture - Final Not Reportable Not Reportable No Growth Day 5 11/22/18 05:30 Blood Venous Aerobic Blood Culture - Final 11/22/18 05:30 Blood Venous Blood Culture - Final Not Reportable Not Reportable No Growth Day 5 11/21/18 23:12 Stool Stool Occult Blood (LILI) - Final POS Assess/Plan/Problems-Billing Assessment: 78M PMH CVAs w residual vasc dementia and L sided weakness on AC for long hx of crytpogenic stroke, CAD, MARY not treated, HTN, and MDS, HFrEF (EF 30%,) , recent admission for oral dysphasia after a long period of malnutrition, aspiration PNA and sepsis, and likely post stroke complication with family deciding for PEG placement on 11/16, hospitalized for 20 days, d/c on 11/21 readmitted for bleeding from PEG tube site, holding AC - Patient Problems (1) Protein calorie malnutrition Current Visit: Yes Status: Acute Priority: High Code(s): E46 - UNSPECIFIED PROTEIN-CALORIE MALNUTRITION SNOMED Code(s): 868916443 Comment: - Currently back on 60cc continuous, per report Jorge can deliver this - Will follow sodium, ensure not hypernatremic - A1c pending re hyperglycemia (2) Acute blood loss anemia Current Visit: Yes Status: Acute Priority: Medium Code(s): D62 - ACUTE POSTHEMORRHAGIC ANEMIA SNOMED Code(s): 475658908 Comment: - Anemia partially due to myelodyplastic syndrome, mild bleeding from PEG site, also was on AC for frequent stroke, AC held since 11/22. - EGD on 11/24 unrevealing, likely source was poorly healing PEG TRACT not a true UGIB but bleeding from site in setting of AC - On PPI IV BID - restarted SC Lovenox today - Hgb 7 down from 8.1, VSS, s/p 1UPRBC on 11/23, repeat 1 U 11/24, at 7.8, stable for 24 hours will aim for TF to goal and go to daily H/H (3) Chronic systolic congestive heart failure Current Visit: Yes Status: Acute Priority: Medium Code(s): I50.22 - CHRONIC SYSTOLIC (CONGESTIVE) HEART FAILURE SNOMED Code(s): 564511883 Comment: - HFrEF 30% - discussed thirst, possible free water boluses with , along with mouth swabs, may sate thirst, not likely to cause CHF decompensation since sodium intake low (4) DVT prophylaxis Current Visit: Yes Status: Acute Priority: Low Code(s): UJT3342 - SNOMED Code(s): 301364632 Comment: - SCDs plus lovenox (5) Dysphagia Current Visit: No Status: Acute Code(s): R13.10 - DYSPHAGIA, UNSPECIFIED SNOMED Code(s): 17727442 Comment: - Speech therapy is following (6) Left-sided weakness Current Visit: No Status: Acute Priority: Medium Code(s): R53.1 - WEAKNESS SNOMED Code(s): 139897493 Comment: - Can work with PT on mobility [id number] Status and Disposition: Tomorrow return to [facility] since tolerating TF, restarting Tx dose Lovenox with no bleeding, prognosis is poor generally and this has been discussed with family. Counseling and/or Coordination of Care Minutes: Discussed case with and patient.
[2018-11-27] MEDS: Atorvastatin* 10 MG TAB G TUBE SCH (18:23)
[2018-11-28 06:56] LABS: ABS Monocytes 0.2 10^3/ul (0-0.8); ABS Neutrophils 2.1 10^3/ul (1.5-7.7); Eosinophil % 0.3 %; Hematocrit 23 % (42-52); Hemoglobin 7.7 g/dL (14.0-18.0); Lymphocyte % 29.7 %; Mean Corpuscular HGB Conc 33 g/dL (31-36); Mean Corpuscular Hemoglobin 31 pg (27-31); Mean Corpuscular Volume 92 fL (80-94); Mean Platelet Volume 11.5 fL (7.4-10.4); Nucleated Red Blood Cells % 0.3; Platelet Count 93 10^3/uL (150-450); Red Blood Count 2.51 10^6 /uL (4.18-5.48); Red Cell Distribution Width 18 % (10-15); White Blood Count 3.3 10^3/uL (3.5-10.8)
[2018-11-28 08:30] LABS: Calcium 8.9 mg/dL (8.6-10.3); Potassium 4.1 mmol/L (3.5-5.0)
[2018-11-28 08:36] LABS: BUN/Creatinine Ratio 21.6 (8-20); EGFR African American 100.8 (>60); EGFR Non-African American 83.3 (>60)
[2018-11-28] MEDS: Sertraline* 50 MG TAB G TUBE SCH (10:20)
[2018-11-28] MEDS: Hydroxychloroquine TAB* 200 MG G TUBE SCH (10:20)
[2018-11-28] MEDS: Enoxaparin(*) 80 MG/0.8 ML SYR SUBCUT SCH ×2 (10:21→20:56)
[2018-11-28] MEDS: Cyanocobalamin TAB* 500 MCG G TUBE SCH (10:21)
[2018-11-28] MEDS: Pantoprazole IV* 40 MG IV SCH ×2 (10:21→23:18)
[2018-11-28] MEDS: Carvedilol TAB* 3.125 MG G TUBE SCH ×2 (10:21→20:57)
[2018-11-28] MEDS: Ascorbic Acid TAB* 500 MG G TUBE SCH (10:22)
[2018-11-28] MEDS: Senna TAB 8.6 mg* TAB G TUBE PRN (10:39)
--- NOTE | 2018-11-28 13:31 | TRS ---
CC: Dr. Mattie Drew; [facility] TRANSFER SUMMARY: DATE OF ADMISSION: 11/22/18 DATE OF TRANSFER: 11/28/18 PRIMARY DIAGNOSIS: Bleeding from the insertion site of the G-tube. SECONDARY DIAGNOSES: 1. Recurrent cryptogenic stroke, suspected atrial fibrillation, residual left- sided hemiplegia and dysphagia. 2. History of aspiration pneumonia with sepsis in October of this year. 3. Heart failure with reduced ejection fraction of 30%. 4. Coronary artery disease. 5. Obstructive sleep apnea, not currently on BiPAP or CPAP. 6. PEG tube placement on 11/16/18. 7. Aortic stenosis. 8. Vascular dementia. 9. Myelodysplastic syndrome. 10. History of methicillin-resistant Staphylococcus aureus. 11. Protein-calorie malnutrition. 12. Depression. 13. Gout. 14. Spinal stenosis. MEDICATIONS ON DISCHARGE: 1. Bisacodyl suppository 10 mg p.r. daily p.r.n. constipation. 2. Fluticasone nasal spray 2 sprays both nostrils daily. 3. Ketoconazole 2% cream topically to the affected areas daily as needed. 4. Melatonin 1 tab G-tube q.h.s. 5. Mouth tonic rinse and spit twice a day. 6. Saline nasal spray 0.65% one spray both nostrils q.4 hours p.r.n. dryness. 7. Fleet enema 1 bottle per rectum daily as needed constipation. 8. Travoprost Z 0.004% one drop both eyes at bedtime. 9. Acetaminophen suppository 650 mg p.r. q.4 hours p.r.n. fever or pain. 10. Albuterol with ipratropium 1 nebulizer inhaled q.i.d. 11. Ascorbic acid 500 mg G-tube daily. 12. Aspirin 81 mg G-tube daily. 13. Atorvastatin 10 mg G-tube q.p.m. 14. Carvedilol tablet 3.125 mg one-half tablet by G-tube twice a day. 15. Cholecalciferol 1000 units by G-tube daily. 16. Diphenhydramine 25 mg by G-tube q.4 hours p.r.n. pruritus. 17. Enoxaparin 70 mg subcutaneous b.i.d. 18. Ferrous sulfate liquid 325 mg by G-tube every other day. 19. Hydroxychloroquine 400 mg by G-tube daily. 20. Lactobacillus 1 tab by G-tube twice a day. 21. Omeprazole 20 mg by G-tube twice a day. 22. Ondansetron 4 mg by G-tube q.i.d. p.r.n. nausea. 23. MiraLAX 17 g mixed with water by G-tube every other day. 24. Senna 17.2 g by G-tube q.h.s. p.r.n. constipation. 25. Sertraline 150 mg by G-tube daily. 26. AREDS with multivitamins 1 capsule G-tube daily. CONSULTATIONS: Dr. Gil of Gastroenterology; Dr. Cavazos of Hematology. PROCEDURES: EGD on 11/24/18 showing no gastric bleeding, only bleeding around the G-tube. HOSPITAL COURSE: The patient is an 78-year-old man with complex medical history including recurrent strokes, presumed AFib, on anticoagulation, who presented with blood in the G-tube aspirate as well a s hematemesis and guaiac-positive stools. He has long-term anemia due to myelodysplastic disorder, b ut his hemoglobin on admission was 8.4 and it fell to 7.1 over the first 2 days. His baseline hemogl obin has been around 9.7 to 10.5. The patient did require 2 units of packed red cell transfusion. C onsultation with Dr. Gil was obtained and she performed an endoscopy as mentioned above. The re were no active esophageal or gastric bleeding sources identified other than oozing around the G-tu be. The patient's anticoagulation was held on admission due to the bleeding. We had discussions wit jase Cavazos of Hematology regarding the GI bleeding, the need for anticoagulation and myelodysplasti c syndrome. Of course, the patient believes he does not have normal recovery with his bone marrow to produce more red cells, etc. The decision was made to hold anticoagulation for 1 week and then resta rt Lovenox injections, which could be quickly stopped within 12 hours if any more bleeding is noted. He did tolerate a day and a half of Lovenox without any recurrent upper GI bleeding or G-tube bleedi ng. His nutrition status had become quite poor and the tube feeding was ramped up to a goal rate as docum ented 57 mL an hour continuous with Jevity 1.2. The G-tube was relatively recent as it was placed on 11/16/18. If the patient is tolerating continuous feeds in a week, nutrition consult should be obta ined and discuss transitioning over to bolus feedings. He did express thirst and hunger on the day p rior to discharge. He is working with Speech Therapy, but he continues to make small gains with his swallowing abilities, but also remains at high risk of aspiration pneumonia. The patient also had physical therapy assessment on the day of discharge. The patient is currently a Santa lift, but he in the past had been able to transfer bed to chair, he should move towards that g oal if at all possible. Other goals of care were discussed between Dr. Newton and myself and the patient and his . His wif e is the main decision maker as the patient has vascular dementia. She is hoping that he can rehabil itate and get some mobility and swallowing abilities back at the [facility]. She does accept a pal liative approach with no resuscitation and possible move to home with hospice [facility] DISPOSITION: [facility]. STATUS: Inpatient. CONDITION: Fair. DIET: NPO, moisten the mouth with wet swabs and G-tube feeding. ACTIVITY: Santa lift, progress to transfer to chair with physical therapy. TIME SPENT: I spent more than 45 minutes with the patient and his family and completing necessary pa perwork for discharge today. [id number]/CPS #: [id number]
[2018-11-28] MEDS: Atorvastatin* 10 MG TAB G TUBE SCH (17:31)
[2018-11-28] MEDS: Latanoprost 0.005%* 2.5 ml BTL BOTH EYES SCH (20:55)
[2018-11-29 07:27] VITALS: BP 110/48
[2018-11-29] MEDS: Ferrous Sulfate LIQ* 300 MG/5 ML UDC G TUBE SCH (09:32)
[2018-11-29] MEDS: Pantoprazole IV* 40 MG IV SCH (09:32)
[2018-11-29] MEDS: Hydroxychloroquine TAB* 200 MG G TUBE SCH (09:33)
[2018-11-29] MEDS: Cyanocobalamin TAB* 500 MCG G TUBE SCH (09:33)
[2018-11-29] MEDS: Sertraline* 50 MG TAB G TUBE SCH (09:33)
[2018-11-29] MEDS: Carvedilol TAB* 3.125 MG G TUBE SCH (09:33)
[2018-11-29] MEDS: Enoxaparin(*) 80 MG/0.8 ML SYR SUBCUT SCH (09:34)
[2018-11-29] MEDS: Polyethylene Glycol 3350* 17 GM PACKET G TUBE SCH (09:34)
== END 2018-11-29 10:20 | DRG 394 ==
LOC: ED 21:50 → ICU 11-22 04:08 → MEDTELE 11-22 09:20 → MED 11-26 00:17
PROVIDERS: ADMIT Internal Medicine; ATTEND Internal Medicine
PROC: 30233N1 Transfusion of Nonautologous Red Blood Cells into Peripheral Vein, Percutaneous Approach (ICD-10-PCS; principal; 2018-11-24)
PROC: 0DJ08ZZ Inspection of Upper Intestinal Tract, Via Natural or Artificial Opening Endoscopic (ICD-10-PCS; 2018-11-24)
DX: K94.21 Gastrostomy hemorrhage (principal); D62 Acute posthemorrhagic anemia; I50.22 Chronic systolic (congestive) heart failure; E46 Unspecified protein-calorie malnutrition; I69.354 Hemiplegia and hemiparesis following cerebral infarction affecting left non-dominant side; F01.50 Vascular dementia, unspecified severity, without behavioral disturbance, psychotic disturbance, mood disturbance, and anxiety; I25.10 Atherosclerotic heart disease of native coronary artery without angina pectoris; I48.91 Unspecified atrial fibrillation; R13.11 Dysphagia, oral phase; K29.50 Unspecified chronic gastritis without bleeding; D46.9 Myelodysplastic syndrome, unspecified; I11.0 Hypertensive heart disease with heart failure; E78.5 Hyperlipidemia, unspecified; H40.9 Unspecified glaucoma; H35.30 Unspecified macular degeneration; R50.9 Fever, unspecified; K59.00 Constipation, unspecified; E78.00 Pure hypercholesterolemia, unspecified; K21.9 Gastro-esophageal reflux disease without esophagitis; J30.2 Other seasonal allergic rhinitis; M48.061 Spinal stenosis, lumbar region without neurogenic claudication; F32.9 Major depressive disorder, single episode, unspecified; Z96.649 Presence of unspecified artificial hip joint; I35.0 Nonrheumatic aortic (valve) stenosis; R11.2 Nausea with vomiting, unspecified; G47.33 Obstructive sleep apnea (adult) (pediatric); M10.9 Gout, unspecified; Z66 Do not resuscitate; Z23 Encounter for immunization; Z85.46 Personal history of malignant neoplasm of prostate; Z87.891 Personal history of nicotine dependence; Z72.89 Other problems related to lifestyle; Z91.048 Other nonmedicinal substance allergy status; Z91.013 Allergy to seafood; Z87.442 Personal history of urinary calculi; Z90.79 Acquired absence of other genital organ(s); Z95.1 Presence of aortocoronary bypass graft; Z79.01 Long term (current) use of anticoagulants; Z91.018 Allergy to other foods; Z88.1 Allergy status to other antibiotic agents; Z91.011 Allergy to milk products; Z80.9 Family history of malignant neoplasm, unspecified; Z98.49 Cataract extraction status, unspecified eye; Z79.82 Long term (current) use of aspirin; Z68.27 Body mass index [BMI] 27.0-27.9, adult
CPT/HCPCS: 36415; 71045; 80048; 80053; 81003; 82272; 83036; 83690; 85014; 85018; 85025; 85027; 85060; 85610; 86850; 86870; 86880; 86900; 86901; 86905; 86922; 87040; 90686; 99156; 99233; 99285; A9270-GY; G8978-GP-CM; G8979-GP-CK; J1650; J2250; J2405; J2543; J3010; J3475; P9040

== ENCOUNTER 2018-11-30 03:23 | Inpatient (IN) | payer MEDICARE, OTHER ==
[2018-11-30 05:10] LABS: Red Blood Count 3.14 10^6 /uL (4.18-5.48); White Blood Count 5.3 10^3/uL (3.5-10.8)
[2018-11-30 05:11] LABS: Hematocrit 29 % (42-52); Hemoglobin 9.1 g/dL (14.0-18.0); Mean Corpuscular HGB Conc 32 g/dL (31-36); Mean Corpuscular Hemoglobin 29 pg (27-31); Mean Corpuscular Volume 91 fL (80-94); Mean Platelet Volume 11.9 fL (7.4-10.4); Platelet Count 127 10^3/uL (150-450); Red Cell Distribution Width 18 % (10-15)
[2018-11-30] MEDS ORDERED: LORazepam TAB(*) 1 MG PEG TUBE ONE (05:19)
[2018-11-30] MEDS ORDERED: NS 0.9% 1000 ML** 1,000 ML IV.FLUID IV ONE (05:21)
[2018-11-30] MEDS ORDERED: Piperacillin/Tazobac ADVAN(*) 3.375 GM in NS 0.9% 100 ML* 100 ML IVPB ONE (05:32)
[2018-11-30] MEDS ORDERED: DOXYcycline IV* 100 MG in NS 0.9% 250 ML* 250 ML IVPB ONE (05:36)
--- NOTE | 2018-11-30 05:41 | ED ---
Respiratory - HPI Summary HPI Summary: LEVEL 5 CAVEAT LIMITED RESPONSIVENESS This patient is a 78 year old M presenting to [facility] accompanied by with a chief complaint of coughing since prior to arrival. Pt does not feel out of breath Per EMS, Pt had a feeding tube recently placed and then he started coughing, so they stopped the feeding and then the coughing stopped. Per , He originally was first hospitalized after complaining of a headache , and was quiet drowsy. On 10/30/18 pt was discharged from hospital, and on way back stopped at [facility], had water and pablito juice. Then he went back to assisted living and was able to eat scrambled eggs. His left at 1930 and pt was not coughing nor did he have other issues. Then the next day sometime between 11 and 11:30 the nurses found him on floor, and black stuff was coming out of his mouth. He was immediately sent to the ER and admitted to ICU with diagnosis of pneumonia. He spent 10/31/18,11/01/18, and 11/02/18 in ICU, and the whole time he made that gurgling noise. On 11/03/18, pt was found to have MERSA, and his antibiotics were switched to doxycycline. Then a speech therapist came in and he was not able to swallow. The doctor determined that there was a second bacteria involved. Then X-Ray was done and it revealed he had no swallow reflux, and his pharynx was paralyzed. So he was first put on sugar and salt, then on TPM, and eventually it was decided to place a feeding tube on 11/15. Then on 11/26/18 someone fed him to much food and he began bleeding from the incision, and coughing up brown things. Since 11/26/18 he has had GERD. He stopped bleeding externally, and spitting; so hospital released him. His Left him at residential at [place] night of 11/29/18. Per pts abdomen very distended on left side. - History of Current Complaint Chief Complaint: EDGeneral Stated Complaint: GURGLING PER EMS Time Seen by Provider: 11/30/18 05:05 Hx Obtained From: Family/Residence Life Coordinator - Hx From Patient Unobtainable Due To: Other - LEVEL 5 CAVEAT LIMITED RESPONSIVENESS Onset/Duration: Sudden Onset, Still Present Timing: Constant Initial Severity: Moderate Current Severity: Moderate Character: Wheezing, Cough (Productive) Sputum Amount: Large Sputum Color: Clear Aggravating Factor(s): Nothing Alleviating Factor(s): Nothing - Allergy/Home Medications Allergies/Adverse Reactions: Allergies Allergy/AdvReac Type Severity Reaction Status Date / Time shellfish derived Allergy Severe Airway Verified 07/16/18 17:11 Obstruction tree nut Allergy Intermediate Airway Verified 07/16/18 17:11 Obstruction vancomycin Allergy Intermediate Hives Verified 07/16/18 17:11 Adhesive Tape [Paper Tape] Allergy Rash Verified 11/09/18 06:11 tree and shrub pollen Allergy Sneezing Verified 07/16/18 17:11 lactose AdvReac GI Upset Verified 07/16/18 17:11 PMH/Surg Hx/FS Hx/Imm Hx Previously Healthy: No - LEVEL 5 CAVEAT LIMITED RESPONSIVENESS Endocrine/Hematology History: Reports: Hx Anticoagulant Therapy, Hx Bone Marrow Disease - myelodysplastic syndrome Denies: Hx Diabetes Cardiovascular History: Reports: Hx Angina, Hx Coronary Artery Disease, Hx Hypercholesterolemia, Hx Hypertension, Hx Syncope, Other Cardiovascular Problems /Disorders - LBBB Denies: Hx Congestive Heart Failure, Hx Pacemaker/ICD, Hx Peripheral Vascular Disease Respiratory History: Reports: Hx Pneumonia, Hx Seasonal Allergies, Hx Sleep Apnea - CPAP Denies: Hx Asthma, Hx Chronic Obstructive Pulmonary Disease (COPD) GI History: Reports: Hx Gastroesophageal Reflux Disease, Other GI Disorders - GERD Denies: Hx Gastrointestinal Bleed, Hx Hiatal Hernia, Hx Irritable Bowel, Hx Obstructive Bowel, Hx Ileostomy, Hx Pyloric Stenosis History: Reports: Hx Acute Renal Failure, Hx Benign Prostatic Hyperplasia, Hx Kidney Stones, Hx Renal Disease - KIDNEY STONES, Other Problems/Disorders - KIDNEY STONES,BPH, PROSTATECTOMY Denies: Hx Chronic Renal Failure, Hx Dialysis Musculoskeletal History: Reports: Hx Back Problems, Other Musculoskeletal History - Lumbar spinal stenosis Denies: Hx Osteoporosis Sensory History: Reports: Hx Glaucoma, Hx Macular Degeneration, Hx Vision Problem Denies: Hx Cataracts, Hx Contacts or Glasses, Hx Eye Prosthesis, Hx Legally Blind, Hx Hearing Aid, Hx Hearing Problem Opthamlomology History: Reports: Hx Glaucoma, Hx Macular Degeneration, Hx Vision Problem Denies: Hx Cataracts, Hx Contacts or Glasses, Hx Eye Prosthesis, Hx Legally Blind Neurological History: Reports: Hx CVA - with left sided weakness , Hx Transient Ischemic Attacks (TIA), Other Neuro Impairments/Disorders - lumbar stenosis,CVA , frontal lobe damage Denies: Hx Dementia - states pt does not have dementia, Hx Headaches, Hx Seizures, Hx Spinal Cord Injury Psychiatric History: Reports: Hx Depression Denies: Hx Anxiety, Hx Oppositional [place] Disorder, Hx Panic Disorder, Hx Suicide Attempt, Hx of Violent Episodes Against Others - Cancer History Cancer Type, 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 - SURGERY Hx Chemotherapy: No Hx Radiation Therapy: No Hx Palliative Cancer Treatment: No - Surgical History Surgery Procedure, Year, and Place: CABG, TONSILS, KIDNEY STONES, CATARACT, PROSTATECTOMY, SPINAL STENOSIS SURGERY, HIP REPLACEMENT, CARDIAC STENT, FEMUR - Immunization History Date of Tetanus Vaccine: UTD Date of Influenza Vaccine: UTD Infectious Disease History: Reports: Hx Shingles - 2009 Denies: Hx Clostridium Difficile, Hx Hepatitis, Hx of Known/Suspected MRSA, Hx Tuberculosis, Hx Known/Suspected VRE, Hx Known/Suspected VRSA, Traveled Outside the [place] in Last 30 Days - Family History Known Family History: Positive: Cardiac Disease - Social History Alcohol Use: None Alcohol Amount: 1 drink per week Hx Substance Use: No Substance Use Type: Reports: None Hx Tobacco Use: Yes Smoking Status (MU): Former Smoker Type: Cigarettes Have You Smoked in the Last Year: No Review of Systems Positive: Fever Positive: Cough. Negative: Shortness Of Breath All Other Systems Reviewed And Are Negative: No - Comments Additional Review of Systems Comments: LEVEL 5 CAVEAT LIMITED RESPONSIVENESS Physical Exam - Summary Physical Exam Summary: LEVEL 5 CAVEAT LIMITED RESPONSIVENESS Appearance: Chronically ill appearing man lying on stretch making cont. expiratory noises as if clearing throat does not appear tachypnic Skin: Warm, dry, no obvious rash Eyes: sclera anicteric, no conjunctival pallor ENT: mucous membranes moist, pharynx appears normal Neck: Supple, nontender Respiratory: Clear to auscultation, no signs of respiratory distress Cardiovascular: Normal S1, S2. No murmurs. Normal distal pulses in tibial and radial bilaterally. Abdomen: Soft, nontender, normal active bowel sounds present Musculoskeletal: Normal, Strength/ROM Intact Neurological: A&Ox3, awake and alert, mentation is normal, speech is fluent and appropriate Psychiatric: affect is normal, does not appear anxious or depressed Triage Information Reviewed: Yes Vital Signs On Initial Exam: Initial Vitals Temp 103.3 F 10/17/19 05:19 Vital Signs Reviewed: Yes Procedures - Sedation Patient Received Moderate/Deep Sedation with Procedure: No Diagnostics - Vital Signs Vital Signs Temp Resp 11/30/18 05:32 36 11/30/18 05:19 103.3 F - Laboratory Lab Results: Lab Results 11/30/18 Range/Units 04:20 WBC 5.3 (3.5-10.8) 10^3/uL RBC 3.14 L (4.18-5.48) 10^6 /uL Hgb 9.1 L (14.0-18.0) g/dL Hct 29 L (42-52) % MCV 91 (80-94) fL MCH 29 (27-31) pg MCHC 32 (31-36) g/dL RDW 18 H (10-15) % Plt Count 127 L (150-450) 10^3/uL MPV 11.9 H (7.4-10.4) fL Neutrophils % 87.0 % Lymphocytes % 11.0 % Reactive Lymphs % 1.0 (0-6) % Monocytes % 1.0 % Normal RBC Morphology Normal (Normal) Result Diagrams: 12/01/18 05:30 12/01/18 05:30 Lab Statement: Any lab studies that have been ordered have been reviewed, and results considered in the medical decision making process. - Radiology CXR Radiology Interpretation Completed By: Radiologist Summary of Radiographic Findings: CXR reveals, per ED physician, no acute processes. Pending official radiology report. Re-Evaluation - Re-Evaluation First Eval Re-Evaluation Time: 05:38 Comment: Discussed results and plan of care with pt. Disposition - Course Course Of Treatment: LEVEL 5 CAVEAT LIMITED RESPONSIVENESS. This patient is an 78 year old M presenting to [facility] accompanied by with a chief complaint of coughing since prior to arrival. Pt does not feel out of breath. Per EMD, Pt had a feeding tube recently placed and then he started coughing, so they stopped the feeding and then the coughing stopped. Per , he originally was first hospitalized after complaining of a headache, and was quiet drowsy. On pt was discharged from hospital, and on way back stopped at [facility], had water and pablito juice. Then he went back to assisted living and was able to eat scrambled eggs. His left at 1930 and pt was not coughing nor did he have other issues. Then the next day sometime between 11 and 11:30 the nurses found him on floor, and black stuff was coming out of his mouth. He was immediately sent to the ER and admitted to ICU with diagnosis of pneumonia. He spent 10/31/18,11/01/18, and 11/02/18 in ICU, and the whole time he made that gurgling noise. On 11/03/18, pt was found to have MERSA, and his antibiotics were switched to doxycycline. Then a speech therapist came in and he was not able to swallow. The doctor determined that there was a second bacteria involved. Then X-Ray was done and it revealed he had no swallow reflux, and his pharynx was paralyzed. So he was first put on sugar and salt, then on TPM, and eventually it was decided to place a feeding tube on 11/15/18. Then on someone fed him to much food and he began bleeding from the incision, and coughing up brown things. Since 11/26/18 he has had GERD. He stopped bleeding externally, and spitting; so hospital released him. His Left him at residential at [facility] of 11/29/18. Per pts abdomen very distended on left side. Blood work obtained. RBC is 3.14, Hgb is 9.1, Hct is 29, RDW is 18, Plt Count is 127, MPV is 11.9. CXR reveals, per ED physician, no acute processes. Pending official radiology report. Spoke to Dr. Aviles, who accepts pt for admission. Patient will be admitted. The patient is agreeable with this plan. - Diagnoses Provider Diagnoses: Sepsis, Fever - Physician Notifications Discussed Care Of Patient With: Dread Aviles Time Discussed With Above Provider: 05:45 Instructed by Provider To: Other - Spoke to Dr. Aviles, who accepts pt for admission Discharge ED - Sign-Out/Discharge Documenting (check all that apply): Patient Departure - Admit - Discharge Plan Condition: Stable Disposition: ADMITTED TO [facility] - Billing Disposition and Condition Condition: STABLE Disposition: Admitted to [facility] - Attestation Statements Document Initiated by Scribe: Yes Documenting Scribe: Kaylene Monte Provider For Whom Lizbeth is Documenting (Include Credential): MD Lizbeth Tubbs Attestation: I, Kaylene Monte, scribed for Parvez Ross MD on 12/02/18 at 1917. Scribe Documentation Reviewed: Yes Provider Attestation: The documentation as recorded by the lizbeth, Kaylene Monte accurately reflects the service I personally performed and the decisions made by me, Parvez Ross MD Status of Scribe Document: Viewed
[2018-11-30 05:50] LABS: Albumin 3.6 g/dL (3.2-5.2); Calcium 9.1 mg/dL (8.6-10.3); Potassium 4.4 mmol/L (3.5-5.0); Total Bilirubin 0.7 mg/dL (0.2-1.0)
[2018-11-30 05:56] LABS: Albumin/Globulin Ratio 0.9 (1-3); EGFR Non-African American 71.9 (>60); Total Protein 7.6 g/dL (6.4-8.9)
[2018-11-30 06:11] LABS: Activated Partial Thrombo Time 31.3 seconds (26.0-38.0); INR 1.17 (0.82-1.09)
[2018-11-30 06:52] LABS: Troponin I 0.05 ng/mL (<0.04)
[2018-11-30] MEDS ORDERED: Acetaminophen SUPP* 650 MG SUPP PR ONE (06:57)
[2018-11-30] MEDS ORDERED: Saline NASAL SPRAY 0.65%* BTL BOTH NARES PRN (07:44)
[2018-11-30] MEDS ORDERED: Sodium Phosphate ADULT ENEMA* 118 ml bottle PR PRN (07:44)
[2018-11-30] MEDS ORDERED: Albuterol/Ipratropium NEB.SOL* Albuterol 2.5 MG/Ipratropium 0.5 MG 3 ML INH PRN (07:44)
[2018-11-30] MEDS ORDERED: Bisacodyl SUPP* 10 MG SUPP PR PRN (07:44)
[2018-11-30] MEDS ORDERED: Zosyn per Pharmacy* NOTE FOLLOW UP SCH (08:00)
[2018-11-30] MEDS ORDERED: Enoxaparin(*) 40 MG/0.4 ML SYR SUBCUT SCH (08:00)
[2018-11-30] MEDS ORDERED: NS 0.9% 250 ML* 250 ML ONE (08:32)
[2018-11-30 08:59] LABS: Troponin I 0.09 ng/mL (<0.04)
[2018-11-30] MEDS: NS 0.9% 1000 ML** 1,000 ML IV SCH (09:14)
[2018-11-30] MEDS: Hydroxychloroquine TAB* 200 MG G TUBE SCH (11:00)
[2018-11-30] MEDS: Cyanocobalamin TAB* 500 MCG G TUBE SCH (11:00)
[2018-11-30] MEDS: Cholecalciferol TAB* 1000 UNITS G TUBE SCH (11:06)
[2018-11-30] MEDS: Carvedilol TAB* 3.125 MG G TUBE SCH ×2 (11:07→21:23)
[2018-11-30] MEDS: Lactobacillus Acidophilus* 1 TAB SCH ×2 (11:07→21:22)
[2018-11-30] MEDS: Aspirin 81 mg CHEW TAB* 81 MG TAB.CHEW G TUBE SCH (11:07)
[2018-11-30] MEDS: Sertraline* 100 MG TAB G TUBE SCH (11:08)
[2018-11-30] MEDS: Ascorbic Acid TAB* 500 MG G TUBE SCH (11:08)
[2018-11-30] MEDS: Ferrous Sulfate LIQ* 300 MG/5 ML UDC G TUBE SCH (11:08)
[2018-11-30] MEDS: Polyethylene Glycol 3350* 17 GM PACKET G TUBE SCH (11:10)
[2018-11-30] MEDS: Ketoconazole 2 % CREAM (NF) 30 GM TUBE TOPICAL SCH ×2 (11:12→19:32)
[2018-11-30] MEDS: Enoxaparin(*) 80 MG/0.8 ML SYR SUBCUT SCH ×2 (12:52→21:21)
[2018-11-30] MEDS: Lansoprazole SUSP* ORALSYR 3 MG/ML PEG TUBE SCH ×2 (12:53→21:23)
--- NOTE | 2018-11-30 12:53 | PN ---
Sepsis Event Evaluation Date of Evaluation: 11/30/18 Time of Evaluation: 10:30 Current Stage of Sepsis: Sepsis Vital Signs - Last 12 Hours: Vital Signs - 12 hr Temp Pulse Resp BP Pulse Ox 11/30/18 12:12 37.2 C 11/30/18 09:50 38.4 C 102 20 102/47 98 11/30/18 09:03 10 11/30/18 08:43 38.1 C 112 22 122/60 93 11/30/18 08:28 113 26 102/59 93 11/30/18 08:21 114 38 122/60 94 11/30/18 08:00 112 28 93 11/30/18 07:28 118 21 112/60 93 11/30/18 07:03 39.0 C 11/30/18 07:00 119 29 93 11/30/18 06:58 118 31 111/53 93 11/30/18 06:28 121 34 113/56 93 11/30/18 06:14 123 35 92 11/30/18 05:59 124 30 136/62 92 11/30/18 05:32 36 11/30/18 05:21 93 11/30/18 05:19 39.6 C Lactic Acid: 11/30/18 11/30/18 05:52 08:27 Lactic Acid 3.1 H* 2.4 H* - Cardiopulmonary Exam Capillary Refill: < or = to 5 seconds Respiratory: Symmetrical Chest Expansion and Respiratory Effort, - - rales L>R base Cardiovascular: NL Sounds; No Murmurs; No JVD, RRR - Peripheral Pulse Exam Radial Pulses: Bilateral Normal Pedal Pulses: Bilateral Diminished Posterior Tibial Pulse: Bilateral Diminished Femoral Pulses: Bilateral Normal Popliteal Pulses: Bilateral Normal - Skin Exam Skin Exam: Normal Turgor - Sabrina Coma Scale Best Eye Response: 4 - Spontaneous Best Motor Response: 6 - Obeys Commands Best Verbal Response: 4 - Confused Coma Scale Total: 14 Assess/Plan/Problems-Billing Assessment:
[2018-11-30] MEDS: ZOSYN 3.375 GM Q8H per EXTENDED INFUSION IVPB SCH ×4 (12:54→18:12)
[2018-11-30 14:08] LABS: Troponin I 0.14 ng/mL (<0.04)
--- NOTE | 2018-11-30 15:50 | HP ---
ADMISSION HISTORY AND PHYSICAL: DATE OF ADMISSION: 11/30/18 PRIMARY CARE PHYSICIAN: Dr. Drew. PROVIDER: Gloria Mix NP. ATTENDING PHYSICIAN: Gualberto Fuller MD.* (DICTATED BY GLORIA MIX NP) CHIEF COMPLAINT: Coughing up tube feeding colored sputum. HISTORY OF PRESENT ILLNESS: This is an 78-year-old male with a past medical history significant for myelodysplasia, multiple CVAs with dysphagia, recent PEG tube placement and congestive heart failure, who presented to the emergency room on 11/30/18 in the a.m. for coughing with tube feeding administration. Originally, the patient had been hospitalized in October due to aspiration pneumonia. At that time had failed a swallow evaluation and received PEG tube placement from Dr. Watson. On 10/30/18, he was discharged from the hospital and at that time was able to have water, pablito juice and some scrambled eggs without any issue, was then back to the hospital on 10/31/18 due to having been found on the floor of the [facility] facility with "black stuff coming out of his mouth". At that point, he has been intubated for several days and had received IV antibiotics as speech therapist again evaluated the patient with failed swallowing evaluation and received feeding tube on 11/15/18, and then on 11/26/18, he received a bolus of Jevity tube feeding about 250 mL at which time his PEG tube began to bleed heavily at the insertion site. The patient was then readmitted into the hospital to manage that and discharged on 11/28/18. Within the short time that he was at the [facility], the patient began coughing up Jevity colored sputum and was having more difficulty breathing and had a gurgly quality to his voice, then at that point returned to the emergency room via EMS. In the emergency room, the patient received multiple boluses of IV fluids, IV Zosyn, spiked a fever of 103.3, making frequent throat clearing noises, though denied any chest pain, respiratory distress. PAST MEDICAL HISTORY: 1. Multiple strokes with residual left-sided weakness. 2. Coronary artery disease with congestive heart failure with an ejection fraction of 30%. 3. Myelodysplastic syndrome. 4. Nephrolithiasis. 5. Prostate cancer. 6. Spinal stenosis. 7. Hypertension. 8. Hyperlipidemia. 9. Glaucoma. 10. Macular degeneration. PAST SURGICAL HISTORY: Includes: 1. Prostatectomy. 2. Quadruple bypass. 3. Back surgery. 4. Most recently jejunostomy tube placement via the PEG site. HOME MEDICATIONS: 1. Bisacodyl suppository 10 mg p.r. daily p.r.n. constipation. 2. Fluticasone nasal spray 2 sprays both nostrils daily. 3. Ketoconazole 2% cream topically to affected areas daily as needed. 4. Melatonin 1 tab G-tube q.h.s. 5. Nasal saline spray 0.65% one spray both nostrils q.4 hours p.r.n. 6. Fleet enema 1 bottle per rectum daily as needed for constipation. 7. Travoprost Z 0.004% 1 drop in both eyes at bedtime. 8. Acetaminophen suppository 650 mg p.r. q.4 hours p.r.n. fever or pain. 9. Albuterol/ipratropium nebulizer 4 times a day. 10. Ascorbic acid 50 mg via PEG tube daily. 11. Aspirin 81 mg via G-tube daily. 12. Atorvastatin 10 mg via G-tube daily. 13. Carvedilol 3.125 mg one-half tablet by G-tube twice daily. 14. Cholecalciferol 1000 units by G-tube daily. 15. Diphenhydramine 25 mg by G-tube q.4 hours p.r.n. 16. Enoxaparin 70 mg subcutaneously b.i.d. 17. Ferrous sulfate liquid 325 mg via G-tube every other day. 18. Hydroxychloroquine 400 mg via G-tube daily. 19. Lactobacillus 1 tab via G-tube twice daily. 20. Omeprazole 20 mg via G-tube twice daily. 21. Ondansetron 4 mg via G-tube 4 times a day p.r.n. 22. MiraLAX 17 g via G-tube every other day. 23. Senna 17.2 g via G-tube q.h.s. p.r.n. 24. Sertraline 150 mg via G-tube daily. 25. AREDS with multivitamins 1 capsule via G-tube daily. ALLERGIES: To shellfish, tree nuts, VANCOMYCIN, ADHESIVE TAPE AND LACTOSE. FAMILY HISTORY: Significant for father having an OH and mother had unknown cancer. SOCIAL HISTORY: Includes smoked for 1 year in his late 20s, has not smoked since. No recent alcohol use. Denies any recreational substances. He is retired. 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 He is . REVIEW OF SYSTEMS: An 11-point system review was performed though limited due to the patient's cognition. Per , he has been having issues with constipation. Otherwise negative for chest pain, shortness of breath, abdominal pain, nausea or vomiting. PHYSICAL EXAMINATION CONSTITUTIONAL: This is a well-developed older gentleman, seen lying up in bed , in mild distress, making frequent throat clearing vocalization. VITAL SIGNS: Temperature of 103.3, 123 heart rate, 30 respirations, 92% oxygen on 2 liters, 136/62 blood pressure. HEENT: Eyes: Conjunctivae are pink and moist. PERRLA. EOMs intact. ENT: Oropharynx clear. Noted white film to tongue. LYMPHATICS: No cervical lymphadenopathy noted. RESPIRATORY: Difficulty to assess over frequent vocalization, though did note crackling to lower lobe on 2 liters of oxygen. No accessory muscle use. CARDIAC: S1, S2. Heart rate regular. No murmurs, gallops or rubs appreciated. No lower extremity edema. 2+ positive pedal pulses. ABDOMEN: Softly distended, nontender with positive bowel sounds x4 noted more of the distention to the left side of the abdomen and upon palpation noted sensation of pushing air bubbles around. No crepitus. MUSCULOSKELETAL: No clubbing or cyanosis noted. No abnormalities, able to move all extremities though significant weakness in the left upper and lower extremities. SKIN: Dressing around PEG tube site is clean, dry and intact. PEG tube to right upper quadrant present, trace amount of bloody drainage to old dressing that was recently removed. NEURO: Again left-sided hemiplegia. Sensation intact to light touch. Left- sided facial droop. Tongue midline. PSYCH: Unable to determine orientation at this time. No noted anxiety or depression. PERTINENT LAB DATA: RBC 3.14, hemoglobin 9.1, hematocrit 29, RDW 18, platelet count 127, MPV 11.9. INR 1.17. Glucose 219. Lactic acid 3.1. Troponin 0.05. DIAGNOSTIC STUDIES: Chest x-ray showed mild cardiomegaly with pulmonary interstitial edema. EKG shows sinus rhythm with left bundle branch block. ASSESSMENT: My impression is that this is an 78-year-old male with a past medical history significant for myelodysplastic syndrome, congestive heart failure, cerebrovascular accident with dysphagia and left hemiplegia, who was admitted on 11/30/18 for aspiration pneumonia and elevated troponin ruled out ST -elevation myocardial infarction at this point. PLAN: 1. Severe sepsis, meets criteria for severe sepsis at 5:50 as evidenced by temperature of 103.3, pulse 123, respirations 30, lactic acidosis 3.1, felt that this is secondary to aspiration pneumonia, received normal saline bolus and Zosyn in the emergency room. Normotensive. Trend lactic acid until it speaks, continue Zosyn per pharmacy protocol. Do not feel the patient needs vasopressins at this time. 2. Aspiration pneumonia. I feel this is an infection caused by aspiration of gastric content. About 1 month ago, the patient was admitted for aspiration pneumonia without new neurological event. After failing swallow eval, he received PEG tube and Jevity tube feeding. According to the , there has been difficulty in that the patient was promptly readmitted shortly after original discharge due to bleeding around the PEG tube site after bolus of Jevity that has since resolved. She also reports occasional heaving and coughing up tube feeding colored sputum. Currently, he is making frequent throat clearing noises, breath sounds gurgly at times, crackles at base, we will hold all tube feedings for now, but will continue with medication administration through PEG tube. Nutrition consult placed. PT/OT consult placed for reconditioning. 3. Elevated troponin. Troponin of 0.[address] segment changes, level has increased from baseline. EKG showed sinus rhythm with left bundle branch block and tachycardia, possibly elevated due to prolonged tachycardia. Denies chest pain or shortness of breath. We will trend troponins every 3 hours until peaked. 4. Congestive heart failure with ejection fraction of 30%. No signs or symptoms of fluid overload or ankle swelling. Continue carvedilol. 5. Depression. No reports of suicide ideation or homicidal ideation. Continue sertraline. 6. History of CVA with left-sided hemiplegia and dysphagia, unable to see objects with people on his left side. Continue supportive care. 7. Glaucoma. Continue travoprost. 8. Gastroesophageal reflux disease, may have contributed to aspiration. Continue omeprazole. 9. History of myelodysplastic syndrome. The patient is anemic with an H and H 9.1 and 29, though asymptomatic. Continue ferrous sulfate. 10. Atrial fibrillation, currently in sinus rhythm. Continue carvedilol and enoxaparin, has been on Coumadin but was held during more recent hospital admission bleeding around PEG tube site. 11. Code status is DNR. 12. DVT prophylaxis. Continue SCDs and enoxaparin. 13. Disposition. Admit OBV to [address] [place] [id number]. 14. Condition is guarded. TIME SPENT: Time spent on this patient was 75 minutes with more than half of it spent [id number]. The case was discussed with my attending and they agree with the plan of care. GLORIA MIX, VETERINARY MICROBIOLOGIST [id number]/CPS #: [id number] DIEGO
[2018-11-30 17:11] LABS: Troponin I 0.23 ng/mL (<0.04)
--- NOTE | 2018-11-30 18:04 | PN ---
Subjective Date of Service: 11/30/18 Interval History: Patient admitted earlier today with aspiration pneumonia, sepsis. Also has mild L-sided chest pain, elevated troponin. 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 Family History: Unchanged from Admission Social History: Unchanged from Admission Past Medical History: Unchanged from Admission Objective Active Medications: Albuterol/Ipratropium (Duoneb (Albuterol 2.5 Mg/Ipratropium 0.5 Mg)) 1 neb INH [id number] AWAKE PRN PRN Reason: WHEEZING Ascorbic Acid (Vitamin C Tab*) 500 mg G TUBE EVERY OTHER DAY [facility] Last Admin: 11/30/18 11:08 Dose: 500 mg Aspirin (Aspirin 81 Mg Chew Tab*) 81 mg G TUBE DAILY [facility] Last Admin: 11/30/18 11:07 Dose: 81 mg Atorvastatin Calcium (Lipitor*) 10 mg G TUBE QPM [facility] Bisacodyl (Dulcolax Supp*) 10 mg [place] DAILY PRN PRN Reason: no bm in 3 days Last Admin: 11/30/18 11:12 Dose: 10 mg Carvedilol (Coreg Tab*) 1.5625 mg G TUBE BID [facility] Last Admin: 11/30/18 11:07 Dose: 1.5625 mg Cholecalciferol (Vitamin D Tab*) 1,000 units G TUBE EVERY OTHER DAY [facility] Last Admin: 11/30/18 11:06 Dose: 1,000 units Cyanocobalamin (Vitamin B12 Tab*) 1,000 mcg G TUBE DAILY [facility] Last Admin: 11/30/18 11:00 Dose: 1,000 mcg Enoxaparin Sodium (Lovenox(*)) 70 mg SUBCUT 0900,2100 [facility] Last Admin: 11/30/18 12:52 Dose: 70 mg Ferrous Sulfate (Feosol Liq*) 300 mg G TUBE EVERY OTHER DAY [facility] Last Admin: 11/30/18 11:08 Dose: 300 mg Fluticasone Propionate (Flonase Nasal Milton 50mcg*) 2 spray BOTH NARES DAILY PRN PRN Reason: CONGESTION Hydroxychloroquine Sulfate (Plaquenil Tab*) 400 mg G TUBE DAILY [facility] Last Admin: 11/30/18 11:00 Dose: 400 mg Sodium Chloride (Ns 0.9% 1000 Ml) 1,000 mls @ 75 mls/hr IV PER RATE [facility] Stop: 12/02/18 20:34 Piperacillin Sod/Tazobactam (Sod 3.375 gm/ Sodium Chloride) 100 mls @ 25 mls/ hr IVPB Q8H [facility] Last Admin: 11/30/18 12:54 Dose: 25 mls/hr Ketoconazole (Nizoral 2% Cream (Nf)) 1 applic TOPICAL BID [facility]; Protocol Last Admin: 11/30/18 11:12 Dose: Not Given Lactobacillus Rhamnosus (Lactobacillus Acidophilus*) 1 tab .SEE ORDER BID [facility] Last Admin: 11/30/18 11:07 Dose: 1 tab Lansoprazole (Lansoprazole Susp* Oralsyr) 15 mg PEG TUBE BID [facility] Last Admin: 11/30/18 12:53 Dose: 15 mg Latanoprost (Xalatan 0.005%*) 1 drop BOTH EYES BEDTIME [facility]; Protocol Ondansetron HCl (Zofran Inj*) 4 mg IV Q4H PRN PRN Reason: NAUSEA/VOMITING Pharmacy Consult (Zosyn Per Pharmacy*) 1 note FOLLOW UP .ZOSYN PER PHARMACY [facility] Polyethylene Glycol/Electrolytes (Miralax*) 17 gm G TUBE EVERY OTHER DAY [facility] Last Admin: 11/30/18 11:10 Dose: 17 gm Senna (Senokot 8.6 Mg Tab*) 2 tab G TUBE BEDTIME PRN PRN Reason: CONSTIPATION Sertraline HCl (Zoloft*) 150 mg G TUBE DAILY [facility] Last Admin: 11/30/18 11:08 Dose: 150 mg Sodium Biphosphate/Sodium Phosphate (Fleet Enema*) 1 bottle [place] DAILY PRN PRN Reason: CONSTIPATION Sodium Chloride (Sodium Chloride 0.65% Nasal Milton*) 1 spray BOTH NARES Q4H PRN PRN Reason: CONGESTION Vital Signs - 8 hr 11/30/18 11/30/18 12:12 15:15 Temperature 37.2 C 37.4 C Pulse Rate 95 Respiratory 24 Rate Blood Pressure 106/53 (mmHg) O2 Sat by Pulse 93 Oximetry Oxygen Devices in Use Now: Nasal Cannula Appearance: alert, no distress Ears/Nose/Mouth/Throat: Clear Oropharnyx Neck: No Thyroid Enlargement, Masses Respiratory: - - ronchi LT>RT lower lungs Cardiovascular: NL Sounds; No Murmurs; No JVD, RRR Abdominal: NL Sounds; No Tenderness; No Distention Neurological: - - L-sided weakness Lines/Tubes/Other Access: Clean, Dry and Intact Peripheral IV, Clean, Dry and Intact Percuteneous Feeding Tube Nutrition: - - NPO Result Diagrams: 11/30/18 04:20 11/30/18 04:20 EKG Data: sinus tach, LBBB on admission Assess/Plan/Problems-Billing Assessment: 78 year old with recurrent strokes, suspected a-fib, dysphagia, G-tube, admitted with sepsis, aspiration pneumonia - Patient Problems (1) Sepsis Current Visit: Yes Status: Acute Priority: High Comment: -Due to aspiration pneumonia -Continue Zosyn (2) Troponin I above reference range Current Visit: Yes Status: Acute Priority: Medium Code(s): R79.89 - OTHER SPECIFIED ABNORMAL FINDINGS OF BLOOD CHEMISTRY SNOMED Code(s): 929023425 Comment: - Discussed demand ischemia vs small DE. - Will continue to trend troponin - Placed call to Dr. Busch, will ask Dr. Rosenthal to see patient tomorrow. - Echo planned Status and Disposition: inpatient Points of Discussion: Long discussion with and friend and patient re goals of care. They agree cardiology intervention not likely safe. Agree that aspiration post feeding is likely a poor prognostic sign. They agree to palliative care consult
[2018-11-30] MEDS: Atorvastatin* 10 MG TAB G TUBE SCH (18:14)
[2018-11-30] MEDS: Acetaminophen ADULT LIQ* 650 MG/20.3 ML UDC PO PRN (21:23)
[2018-11-30] MEDS: Latanoprost 0.005%* 2.5 ml BTL BOTH EYES SCH (21:33)
[2018-12-01] MEDS: ZOSYN 3.375 GM Q8H per EXTENDED INFUSION IVPB SCH ×6 (03:32→17:45)
[2018-12-01 05:38] LABS: ABS Lymphocytes 0.4 10^3/ul (1.0-4.8); ABS Monocytes 0.2 10^3/ul (0-0.8); ABS Neutrophils 7.2 10^3/ul (1.5-7.7); Hematocrit 22 % (42-52); Hemoglobin 7.1 g/dL (14.0-18.0); Lymphocyte % 5.1 %; Mean Corpuscular HGB Conc 32 g/dL (31-36); Mean Corpuscular Hemoglobin 29 pg (27-31); Mean Corpuscular Volume 91 fL (80-94); Platelet Count 69 10^3/uL (150-450); Red Blood Count 2.41 10^6 /uL (4.18-5.48); Red Cell Distribution Width 18 % (10-15); White Blood Count 7.8 10^3/uL (3.5-10.8)
[2018-12-01 05:53] LABS: Anion Gap 7 mmol/L (2-11); BUN/Creatinine Ratio 19.2 (8-20); Blood Urea Nitrogen 19 mg/dL (6-24); CO2 Carbon Dioxide 26 mmol/L (22-32); Calcium 8.3 mg/dL (8.6-10.3); Chloride 110 mmol/L (101-111); EGFR Non-African American 72.7 (>60); Glucose 161 mg/dL (70-100); Magnesium 1.9 mg/dL (1.9-2.7); Potassium 3.7 mmol/L (3.5-5.0); Sodium 143 mmol/L (135-145)
[2018-12-01 06:00] LABS: Troponin I 0.19 ng/mL (<0.04)
[2018-12-01] MEDS: NS 0.9% 1000 ML** 1,000 ML IV SCH (06:22)
[2018-12-01] MEDS: Acetaminophen ADULT LIQ* 650 MG/20.3 ML UDC PO PRN ×2 (09:06→18:27)
[2018-12-01] MEDS: Lactobacillus Acidophilus* 1 TAB SCH ×2 (09:07→22:33)
[2018-12-01] MEDS: Carvedilol TAB* 3.125 MG G TUBE SCH ×2 (09:07→22:33)
[2018-12-01] MEDS: Aspirin 81 mg CHEW TAB* 81 MG TAB.CHEW G TUBE SCH (09:07)
[2018-12-01] MEDS: Sertraline* 100 MG TAB G TUBE SCH (09:07)
[2018-12-01] MEDS: Cyanocobalamin TAB* 500 MCG G TUBE SCH (09:07)
[2018-12-01] MEDS: Enoxaparin(*) 80 MG/0.8 ML SYR SUBCUT SCH ×2 (09:08→22:32)
[2018-12-01] MEDS: Lansoprazole SUSP* ORALSYR 3 MG/ML PEG TUBE SCH ×2 (09:09→22:42)
[2018-12-01] MEDS: Fluticasone NASAL SPRAY 50MCG* 16 gm SPRAY BTL BOTH NARES PRN (09:09)
[2018-12-01] MEDS: Ketoconazole 2 % CREAM (NF) 30 GM TUBE TOPICAL SCH ×2 (09:09→22:36)
[2018-12-01] MEDS: Hydroxychloroquine TAB* 200 MG G TUBE SCH (09:23)
--- NOTE | 2018-12-01 11:59 | CONSULT ---
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 Initially admitted 10/31/18 with aspiration pneumonia, and despite advance directives specifying no artificail nutrition or feeding tubes (Prior existing Living Will, [facility]OL[facility] completed during that admission), PEG tube was placed on 11/15/18 at request of patient and his . The patient was discharged to [facility] for rehabbut was readmitted on 11/26/18 for bleeding around the PEG tube inserttion site. He was then discharged again to [facility] but readmitted within 24 hours on 11/29/16 with aspiration pneumonia and severe sepsis (T 103, HR 123, RR 30, 92% on 2 L), now being treated with IV Zosyn and IV hydration. His tells me she thinks his aspiration was caused by being given a 250 cc bolus feeding of Jevity instead of maintaining a drip of 60 cc/hr. She also says she thinks his swallowing is recovering , as the speech therapist at [facility] was able to give him 2 oz. of soft food without aspiration two days in a row. Lab Values: Abnormal Lab Results 11/30/18 11/30/18 11/30/18 13:31 13:31 16:43 WBC RBC Hgb Hct MCV MCH MCHC RDW Plt Count MPV Neut % (Auto) Lymph % (Auto) [place] % (Auto) Eos % (Auto) Baso % (Auto) Absolute Neuts (auto) Absolute Lymphs (auto) Absolute Monos (auto) Absolute Eos (auto) Absolute Basos (auto) Absolute Nucleated RBC Nucleated RBC % Sodium Potassium Chloride Carbon Dioxide Anion Gap BUN Creatinine Est GFR ( Amer) Est GFR (Non-Af Amer) BUN/Creatinine Ratio Glucose Lactic Acid 2.3 H* 1.8 Calcium Magnesium Troponin I 0.14 H* 10/11/30/18 11/30/18 16:43 19:59 19:59 WBC RBC Hgb Hct MCV MCH MCHC RDW Plt Count MPV Neut % (Auto) Lymph % (Auto) [place] % (Auto) Eos % (Auto) Baso % (Auto) Absolute Neuts (auto) Absolute Lymphs (auto) Absolute Monos (auto) Absolute Eos (auto) Absolute Basos (auto) Absolute Nucleated RBC Nucleated RBC % Sodium Potassium Chloride Carbon Dioxide Anion Gap BUN Creatinine Est GFR ( Amer) Est GFR (Non-Af Amer) BUN/Creatinine Ratio Glucose Lactic Acid 1.0 Calcium Magnesium Troponin I 0.23 H* 0.20 H* 12/01/18 12/01/18 05:30 05:30 WBC 7.8 RBC 2.41 L Hgb 7.1 L Hct 22 L MCV 91 MCH 29 MCHC 32 RDW 18 H Plt Count 69 L D MPV 11.0 H Neut % (Auto) 92.6 Lymph % (Auto) 5.1 [place] % (Auto) 2.2 Eos % (Auto) 0.0 Baso % (Auto) 0.1 Absolute Neuts (auto) 7.2 Absolute Lymphs (auto) 0.4 L Absolute Monos (auto) 0.2 Absolute Eos (auto) 0.0 Absolute Basos (auto) 0.0 Absolute Nucleated RBC 0.0 Nucleated RBC % 0.0 Sodium 143 Potassium 3.7 Chloride 110 Carbon Dioxide 26 Anion Gap 7 BUN 19 Creatinine 0.99 Est GFR ( Amer) 88.0 Est GFR (Non-Af Amer) 72.7 BUN/Creatinine Ratio 19.2 Glucose 161 H Lactic Acid Calcium 8.3 L Magnesium 1.9 Troponin I 0.19 H* Laboratory Last Values WBC 7.8 10^3/uL (3.5-10.8) 12/01/18 05:30 RBC 2.41 10^6 /uL (4.18-5.48) L 12/01/18 05:30 Hgb 7.1 g/dL (14.0-18.0) L 12/01/18 05:30 Hct 22 % (42-52) L 12/01/18 05:30 MCV 91 fL (80-94) 12/01/18 05:30 MCH 29 pg (27-31) 12/01/18 05:30 MCHC 32 g/dL (31-36) 12/01/18 05:30 RDW 18 % (10-15) H 12/01/18 05:30 Plt Count 69 10^3/uL (150-450) L D 12/01/18 05:30 MPV 11.0 fL (7.4-10.4) H 12/01/18 05:30 Neut % (Auto) 92.6 % 12/01/18 05:30 Lymph % (Auto) 5.1 % 12/01/18 05:30 [place] % (Auto) 2.2 % 12/01/18 05:30 Eos % (Auto) 0.0 % 12/01/18 05:30 Baso % (Auto) 0.1 % 12/01/18 05:30 Absolute Neuts (auto) 7.2 10^3/ul (1.5-7.7) 12/01/18 05:30 Absolute Lymphs (auto) 0.4 10^3/ul (1.0-4.8) L 12/01/18 05:30 Absolute Monos (auto) 0.2 10^3/ul (0-0.8) 12/01/18 05:30 Absolute Eos (auto) 0.0 10^3/ul (0-0.6) 12/01/18 05:30 Absolute Basos (auto) 0.0 10^3/ul (0-0.2) 12/01/18 05:30 Absolute Nucleated RBC 0.0 10^3/ul 12/01/18 05:30 Neutrophils % 87.0 % 11/30/18 04:20 Lymphocytes % 11.0 % 11/30/18 04:20 Reactive Lymphs % 1.0 % (0-6) 11/30/18 04:20 Monocytes % 1.0 % 11/30/18 04:20 Nucleated RBC % 0.0 12/01/18 05:30 Normal RBC Morphology Normal (Normal) 11/30/18 04:20 INR (Anticoag Therapy) 1.17 (0.82-1.09) H 11/30/18 05:52 APTT 31.3 seconds (26.0-38.0) 11/30/18 05:52 Sodium 143 mmol/L (135-145) 12/01/18 05:30 Potassium 3.7 mmol/L (3.5-5.0) 12/01/18 05:30 Chloride 110 mmol/L (101-111) 12/01/18 05:30 Carbon Dioxide 26 mmol/L (22-32) 12/01/18 05:30 Anion Gap 7 mmol/L (2-11) 12/01/18 05:30 BUN 19 mg/dL (6-24) 12/01/18 05:30 Creatinine 0.99 mg/dL (0.67-1.17) 12/01/18 05:30 Est GFR ( Amer) 88.0 (>60) 12/01/18 05:30 Est GFR (Non-Af Amer) 72.7 (>60) 12/01/18 05:30 BUN/Creatinine Ratio 19.2 (8-20) 12/01/18 05:30 Glucose 161 mg/dL (70-100) H 12/01/18 05:30 Lactic Acid 1.0 mmol/L (0.5-2.0) 11/30/18 19:59 Calcium 8.3 mg/dL (8.6-10.3) L 12/01/18 05:30 Magnesium 1.9 mg/dL (1.9-2.7) 12/01/18 05:30 Total Bilirubin 0.70 mg/dL (0.2-1.0) 11/30/18 04:20 AST 22 U/L (13-39) 11/30/18 04:20 ALT 19 U/L (7-52) 11/30/18 04:20 Alkaline Phosphatase 89 U/L (34-104) 11/30/18 04:20 Troponin I 0.19 ng/mL (<0.04) H* 12/01/18 05:30 Total Protein 7.6 g/dL (6.4-8.9) 11/30/18 04:20 Albumin 3.6 g/dL (3.2-5.2) 11/30/18 04:20 Globulin 4.0 g/dL (2-4) 11/30/18 04:20 Albumin/Globulin Ratio 0.9 (1-3) L 11/30/18 04:20 - Objective Active Medications: Acetaminophen (Tylenol Adult Liq*) 650 mg PO Q4H PRN PRN Reason: MILD PAIN or TEMP > 100.4 Last Admin: 12/01/18 09:06 Dose: 650 mg Albuterol/Ipratropium (Duoneb (Albuterol 2.5 Mg/Ipratropium 0.5 Mg)) 1 neb INH RT.[id number] AWAKE PRN PRN Reason: WHEEZING Ascorbic Acid (Vitamin C Tab*) 500 mg G TUBE EVERY OTHER DAY [facility] Last Admin: 11/30/18 11:08 Dose: 500 mg Aspirin (Aspirin 81 Mg Chew Tab*) 81 mg G TUBE DAILY [facility] Last Admin: 12/01/18 09:07 Dose: 81 mg Atorvastatin Calcium (Lipitor*) 10 mg G TUBE QPM [facility] Last Admin: 11/30/18 18:14 Dose: 10 mg Bisacodyl (Dulcolax Supp*) 10 mg LA DAILY PRN PRN Reason: no bm in 3 days Last Admin: 11/30/18 11:12 Dose: 10 mg Carvedilol (Coreg Tab*) 1.5625 mg G TUBE BID [facility] Last Admin: 12/01/18 09:07 Dose: 1.5625 mg Cholecalciferol (Vitamin D Tab*) 1,000 units G TUBE EVERY OTHER DAY [facility] Last Admin: 11/30/18 11:06 Dose: 1,000 units Cyanocobalamin (Vitamin B12 Tab*) 1,000 mcg G TUBE DAILY [facility] Last Admin: 12/01/18 09:07 Dose: 1,000 mcg Enoxaparin Sodium (Lovenox(*)) 70 mg SUBCUT 0900,2100 [facility] Last Admin: 12/01/18 09:08 Dose: 70 mg Ferrous Sulfate (Feosol Liq*) 300 mg G TUBE EVERY OTHER DAY [facility] Last Admin: 11/30/18 11:08 Dose: 300 mg Fluticasone Propionate (Flonase Nasal [place] 50mcg*) 2 spray BOTH NARES DAILY PRN PRN Reason: CONGESTION Last Admin: 12/01/18 09:09 Dose: 2 spray Hydroxychloroquine Sulfate (Plaquenil Tab*) 400 mg G TUBE DAILY [facility] Last Admin: 12/01/18 09:23 Dose: 400 mg Sodium Chloride (Ns 0.9% 1000 Ml) 1,000 mls @ 75 mls/hr IV PER RATE [facility] Stop: 12/02/18 20:34 Last Admin: 12/01/18 06:22 Dose: 75 mls/hr Piperacillin Sod/Tazobactam (Sod 3.375 gm/ Sodium Chloride) 100 mls @ 25 mls/ hr IVPB Q8H [facility] Last Admin: 12/01/18 10:35 Dose: 25 mls/hr Ketoconazole (Nizoral 2% Cream (Nf)) 1 applic TOPICAL BID [facility]; Protocol Last Admin: 12/01/18 09:09 Dose: Not Given Lactobacillus Rhamnosus (Lactobacillus Acidophilus*) 1 tab .SEE ORDER BID [facility] Last Admin: 12/01/18 09:07 Dose: 1 tab Lansoprazole (Lansoprazole Susp* Oralsyr) 15 mg PEG TUBE BID [facility] Last Admin: 12/01/18 09:09 Dose: 15 mg Latanoprost (Xalatan 0.005%*) 1 drop BOTH EYES BEDTIME [facility]; Protocol Last Admin: 11/30/18 21:33 Dose: 1 drop Ondansetron HCl (Zofran Inj*) 4 mg IV Q4H PRN PRN Reason: NAUSEA/VOMITING Pharmacy Consult (Zosyn Per Pharmacy*) 1 note FOLLOW UP .ZOSYN PER PHARMACY [facility] Polyethylene Glycol/Electrolytes (Miralax*) 17 gm G TUBE EVERY OTHER DAY [facility] Last Admin: 11/30/18 11:10 Dose: 17 gm Senna (Senokot 8.6 Mg Tab*) 2 tab G TUBE BEDTIME PRN PRN Reason: CONSTIPATION Sertraline HCl (Zoloft*) 150 mg G TUBE DAILY [facility] Last Admin: 12/01/18 09:07 Dose: 150 mg Sodium Biphosphate/Sodium Phosphate (Fleet Enema*) 1 bottle [place] DAILY PRN PRN Reason: CONSTIPATION Sodium Chloride (Sodium Chloride 0.65% Nasal [place]*) 1 spray BOTH NARES Q4H PRN PRN Reason: CONGESTION Vital Signs: Vital Signs: Temp Pulse Resp BP Pulse Ox 99.3 F 88 18 100/62 94 12/01/18 10:25 12/01/18 10:25 12/01/18 10:25 12/01/18 11:03 12/01/18 10:25 Patient Weight: Weight 177 lb 14.4 oz Intake and Output: Intake & Output 11/29/18 11/30/18 12/01/18 12/02/18 06:59 06:59 06:59 06:59 Intake Total 3945 200 Output Total 0 Balance 3945 200 Weight 177 lb 14.4 oz Intake: IV Fluids 3595 IVPB 350 Oral 0 0 Tube Feeding 100 Tube Feeding Flush Amount 100 Output: Tube Feeding Residual 0 Amount Wasted Other: Estimated Void Large Large # Bowel Movements 0 # Voids 2 1 ADLs: Meal Record Start: 11/30/18 09: 52 Freq: DAILY@0900,1400,1800 Status: Active Protocol: Created 11/30/18 09:52 System (Rec: 11/30/18 09:52 System DIET-C11) Document 11/30/18 14:00 [id number] (Rec: 11/30/18 14:05 [id number] MED-C11) Document 11/30/18 18:00 [id number] (Rec: 11/30/18 20:16 [id number] MED-C07) Document 12/01/18 08:55 [id number] (Rec: 12/01/18 08:56 [id number] MED-C11) Intake and Output Start: 11/30/18 05: 09 Freq: Status: Active Protocol: Created 11/30/18 05:09 System (Rec: 11/30/18 05:09 System [id number]) Intake and Output Start: 11/30/18 09: 52 Freq: DAILY@0600,1400,2200 Status: Active Protocol: Created 11/30/18 09:52 System (Rec: 11/30/18 09:52 System DIET-C11) Document 11/30/18 14:00 [id number] (Rec: 11/30/18 14:05 [id number] MED-C11) Document 11/30/18 22:00 [id number] (Rec: 11/30/18 23:17 [id number] MED-C07) Document 12/01/18 05:02 [id number] (Rec: 12/01/18 05:03 [id number] MED-C07) General Impression: Listless, minimally responsive obese man propped up in bed in NAD. Head: Symmetrical Eyes: No Scleral Icterus Ears/Nose/Mouth/Throat: Clear Oropharnyx Neck: No Thyroid Enlargement, Masses Cardiovascular: NL Sounds; No Murmurs; No JVD, RRR Respiratory: Symmetrical Chest Expansion and Respiratory Effort Abdominal: NL Sounds; No Tenderness; No Distention Neurological: - - L-sided weakness and left-sided neglect, waxing and waning mental status - Assessment Assessment: I spoke with the patient's , [place], extensively, and I think she is now realizing more realistically the poor prognosis her is facing, and she is very aware of his poor quality of life. She has not been happy with the care at [facility], and plans to bring her home after he has had maximal treatment for his aspiration pneumonia, and she wants to pursue swallowing therapy during a STR stay again at [facility]. She has plans to hire a cadre of aides and nurses at home to care for her . We discussed what her would most want for the time he has remaining, and she said he wants to be at home. I told her that he would be eligible for hospice services on the basis of his neurologic dysfunction with dysphagia and aspiration, and that on hospice services she would still be able to treat aspiration at home under hospice guidance with po or PerPEG antibiotics, and would have access to 24/7 nursing care. The alternative will otherwise most certainly be recurrent hospitalizations for aspiration events for the rest of his life. She was interested in the hospice option and she wants to think about making the decision to maintain her at home with a DNH status. She was not prepared to make that decision today, however. I will ask Dr. Mccord to check in with her again prior to discharge, and when the patient is discharged to [facility] for STR, he will hopefully make it home on hospice prior [place] [facility] [place] [facility] - Plan Consult Plan (MU): Hospice Plan: Initially patient intends to pursue STR, and hospice thereafter. - Time On Unit Date of Evaluation: 12/01/18 Hospice Consult Time in: 11:00 Hospice Consult Time Out: 12:30 Hospice Consult Time Total: 90 > 50% of Time Spend In Counseling or Coordinating Care: Yes
--- NOTE | 2018-12-01 12:58 | PN ---
Subjective Date of Service: 12/01/18 Interval History: Patient states breathing OK. Had large BM today. reports still has cough/gurgling, better than yesterday. Tolerating TF at 20 ml/hr. Family History: Unchanged from Admission Social History: Unchanged from Admission Past Medical History: Unchanged from Admission Objective Active Medications: Acetaminophen (Tylenol Adult Liq*) 650 mg PO Q4H PRN PRN Reason: MILD PAIN or TEMP > 100.4 Last Admin: 12/01/18 09:06 Dose: 650 mg Albuterol/Ipratropium (Duoneb (Albuterol 2.5 Mg/Ipratropium 0.5 Mg)) 1 neb INH RT.[id number]-OPEOM AWAKE PRN PRN Reason: WHEEZING Ascorbic Acid (Vitamin C Tab*) 500 mg G TUBE EVERY OTHER DAY [facility] Last Admin: 11/30/18 11:08 Dose: 500 mg Aspirin (Aspirin 81 Mg Chew Tab*) 81 mg G TUBE DAILY [facility] Last Admin: 12/01/18 09:07 Dose: 81 mg Atorvastatin Calcium (Lipitor*) 10 mg G TUBE QPM [facility] Last Admin: 11/30/18 18:14 Dose: 10 mg Bisacodyl (Dulcolax Supp*) 10 mg ME DAILY PRN PRN Reason: no bm in 3 days Last Admin: 11/30/18 11:12 Dose: 10 mg Carvedilol (Coreg Tab*) 1.5625 mg G TUBE BID [facility] Last Admin: 12/01/18 09:07 Dose: 1.5625 mg Cholecalciferol (Vitamin D Tab*) 1,000 units G TUBE EVERY OTHER DAY [facility] Last Admin: 11/30/18 11:06 Dose: 1,000 units Cyanocobalamin (Vitamin B12 Tab*) 1,000 mcg G TUBE DAILY [facility] Last Admin: 12/01/18 09:07 Dose: 1,000 mcg Enoxaparin Sodium (Lovenox(*)) 70 mg SUBCUT 0900,2100 [facility] Last Admin: 12/01/18 09:08 Dose: 70 mg Ferrous Sulfate (Feosol Liq*) 300 mg G TUBE EVERY OTHER DAY [facility] Last Admin: 11/30/18 11:08 Dose: 300 mg Fluticasone Propionate (Flonase Nasal [place] 50mcg*) 2 spray BOTH NARES DAILY PRN PRN Reason: CONGESTION Last Admin: 12/01/18 09:09 Dose: 2 spray Hydroxychloroquine Sulfate (Plaquenil Tab*) 400 mg G TUBE DAILY [facility] Last Admin: 12/01/18 09:23 Dose: 400 mg Piperacillin Sod/Tazobactam (Sod 3.375 gm/ Sodium Chloride) 100 mls @ 25 mls/ hr IVPB Q8H [facility] Last Admin: 12/01/18 10:35 Dose: 25 mls/hr Ketoconazole (Nizoral 2% Cream (Nf)) 1 applic TOPICAL BID [facility]; Protocol Last Admin: 12/01/18 09:09 Dose: Not Given Lactobacillus Rhamnosus (Lactobacillus Acidophilus*) 1 tab .SEE ORDER BID [facility] Last Admin: 12/01/18 09:07 Dose: 1 tab Lansoprazole (Lansoprazole Susp* Oralsyr) 15 mg PEG TUBE BID [facility] Last Admin: 12/01/18 09:09 Dose: 15 mg Latanoprost (Xalatan 0.005%*) 1 drop BOTH EYES BEDTIME [facility]; Protocol Last Admin: 11/30/18 21:33 Dose: 1 drop Ondansetron HCl (Zofran Inj*) 4 mg IV Q4H PRN PRN Reason: NAUSEA/VOMITING Polyethylene Glycol/Electrolytes (Miralax*) 17 gm G TUBE EVERY OTHER DAY [facility] Last Admin: 11/30/18 11:10 Dose: 17 gm Senna (Senokot 8.6 Mg Tab*) 2 tab G TUBE BEDTIME PRN PRN Reason: CONSTIPATION Sertraline HCl (Zoloft*) 150 mg G TUBE DAILY [facility] Last Admin: 12/01/18 09:07 Dose: 150 mg Sodium Biphosphate/Sodium Phosphate (Fleet Enema*) 1 bottle ME DAILY PRN PRN Reason: CONSTIPATION Sodium Chloride (Sodium Chloride 0.65% Nasal [place]*) 1 spray BOTH NARES Q4H PRN PRN Reason: CONGESTION Vital Signs - 8 hr 12/01/18 12/01/18 12/01/18 07:30 08:00 10:25 Temperature 38.1 C 37.4 C Pulse Rate 101 88 Respiratory 20 18 Rate Blood Pressure 106/48 92/42 (mmHg) O2 Sat by Pulse 97 97 94 Oximetry Oxygen Devices in Use Now: Nasal Cannula Appearance: awake and alert Neck: NL Appearance and Movements; NL JVP Respiratory: Symmetrical Chest Expansion and Respiratory Effort, - - ronchi LT base Cardiovascular: NL Sounds; No Murmurs; No JVD, RRR Abdominal: NL Sounds; No Tenderness; No Distention, No Hepatosplenomegaly Lines/Tubes/Other Access: Clean, Dry and Intact Peripheral IV, Clean, Dry and Intact Percuteneous Feeding Tube Nutrition: - - NPO, G-tube Result Diagrams: 12/01/18 05:30 12/01/18 05:30 Additional Lab and Data: Laboratory Tests 11/30/18 11/30/18 11/30/18 16:43 19:59 19:59 Lactic Acid 1.0 Troponin I 0.23 H* 0.20 H* 12/01/18 05:30 Lactic Acid Troponin I 0.19 H* Microbiology and Other Data: Microbiology 11/30/18 08:27 Aerobic Blood Culture - Preliminary Blood Venous No Growth Day 1 Anaerobic Blood Culture - Preliminary No Growth Day 1 11/30/18 05:52 Aerobic Blood Culture - Preliminary Blood Venous No Growth Day 1 Anaerobic Blood Culture - Preliminary No Growth Day 1 Assess/Plan/Problems-Billing Assessment: 78 year old with recurrent strokes, suspected a-fib, dysphagia, G-tube, admitted with sepsis, aspiration pneumonia - Patient Problems (1) Sepsis Current Visit: Yes Status: Acute Priority: High Comment: -Due to aspiration pneumonia -Continue Zosyn -tolerating G-tube, will stop IVF (2) Troponin I above reference range Current Visit: Yes Status: Acute Priority: Medium Code(s): R79.89 - OTHER SPECIFIED ABNORMAL FINDINGS OF BLOOD CHEMISTRY SNOMED Code(s): 925160631 Comment: - Discussed case with Dr. Busch, patient's primary store host - He advised medical management, ASA, beta mónica (3) Myelodysplasia (myelodysplastic syndrome) Current Visit: No Status: Acute Priority: Medium Code(s): D46.9 - MYELODYSPLASTIC SYNDROME, UNSPECIFIED SNOMED Code(s): 851155568 Comment: - Patient's HGB back near baseline, had hemoconcentration - Plaquenil continued (4) Palliative care encounter Current Visit: Yes Status: Acute Priority: Medium Code(s): Z51.5 - ENCOUNTER FOR PALLIATIVE CARE SNOMED Code(s): 101858540 Comment: -Appreciate palliative care consult -current plan is to DC to SNF for rehab in 2-3 days, consider home hospice. -DNR status appropriate Status and Disposition: inpatient
--- NOTE | 2018-12-01 15:09 | ECHO ---
*[facility]* [place] [address] Fax #: [phone] Transthoracic Echocardiogram Patient: Jo-Ann Cramer : 1940 Study Date: 12/01/2018 Age: 78 Gender: M HR: 101 bpm Height: 66 in /167.6 cm BSA: 1.9 m^2 Weight: 176.6 lb /80.3 kg BMI: 28.6 kg/m^2 *High School Teacher: * Aracely Parikh RD *Referring Physician: * Gualberto Fuller *Reading Physician: * Kareem Rosenthal MD Indications: Myocardial Infarction (new). History: Congestive heart failure. Myelodysphasia. Cerebrovascular accident. Functional status: Following treatment plan for sleep apnea. Risk factors: Hypertension. Dyslipidemia. Labs, prior tests, procedures, and surgery: Coronary artery bypass grafting. Surgery. Recent PEG tube. Conclusions Summary: - Left ventricle: The cavity size is normal. Wall thickness is mildly increased. Systolic function is globally and severely reduced with minorregional variation. The estimated ejection fraction is 25-30%. Features are consistent with a pseudonormal left ventricular filling pattern, with concomitant abnormal relaxation and increased filling pressure (grade 2 diastolic dysfunction). - Right ventricle: The cavity size is normal. Wall thickness is mildly increased. - Left atrium: The atrium is mildly dilated. - Mitral valve: There is mild regurgitation. - Aortic valve: Valve mobility is restricted. Aortic stenosis if moderate by continuity and moderate to severe by 2d. Consider low gradient aortic stenosis. There is mild regurgitation. - Tricuspid valve: There is trace to mild regurgitation. Study data: Transthoracic echocardiogram. Procedure: Transthoracic echocardiography was performed. Image quality was fair. The study was technically limited due to poor patient compliance and surgical dressings. Complete 2D, spectral Doppler, and color flow Doppler. Location: Bedside. Patient status: Inpatient. Patient room number: 402. The previous study was not available, so comparison is made to the report of 11/13/2018. Rhythm: Tachycardia. Findings Left ventricle: The cavity size is normal. Wall thickness is mildly increased. Systolic function is globally and severely reduced with minorregional variation. The estimated ejection fraction is 25-30%. Features are consistent with a pseudonormal left ventricular filling pattern, with concomitant abnormal relaxation and increased filling pressure (grade 2 diastolic dysfunction). Right ventricle: The cavity size is normal. Wall thickness is mildly increased. Systolic function is normal. Left atrium: The atrium is mildly dilated. Right atrium: The atrium is normal in size. Mitral valve: The leaflets are mildly thickened. There is no evidence of stenosis. There is mild regurgitation. Aortic valve: The valve is trileaflet. The leaflets are mildly thickened. Valve mobility is restricted. Aortic stenosis if moderate by continuity and moderate to severe by 2d. Consider low gradient aortic stenosis. The findings are consistent with moderate stenosis. There is mild regurgitation. Tricuspid valve: The leaflets are normal thickness. There is no evidence of stenosis. There is trace to mild regurgitation. Pulmonic valve: The leaflets are normal thickness. There is no evidence of stenosis. There is trace regurgitation. Aorta: Aortic root: The aortic root is upper normal in size. Ascending aorta: The ascending aorta is appears normal. Aortic arch: The aortic arch is appears normal. Pericardium: A prominent pericardial fat pad is present. There is no significant pericardial effusion. Pulmonary arteries: The main pulmonary artery is normal-sized. Systolic pressure can not be accurately estimated. Systemic veins: Not visualized. Subcostal view attempted, unable to visualize due to surgical dressings. Measurements Left ventricle Value Ref Right atrium Value Ref DANNY, LAX 5.3 cm 4.2 - 5.8 SI dim, ES 5.0 cm 3.4 - 5.3 ESD, LAX (H) 4.5 cm 2.5 - 4.0 ML dim, ES, A4C 4.0 cm 2.6 - 4.4 FS, LAX (L) 15 % 25 - 43 SI dim, ES, A4C 5.0 cm 3.4 - 5.3 PW, ED, LAX (H) 1.1 cm 0.6 - 1.0 Estimated RAP 8 mm Hg --------- FS (L) 15 % 25 - 43 Mid-wall FS 8 % Aortic valve Value Ref PW, ED (H) 1.1 cm 0.6 - 1.0 Andrés diam, ED 2.1 cm --------- PW/ID, ED 0.2 Peak v, S 2.8 m/sec --------- E', lat andrés, TDI (L) 6.0 cm/sec >=10.0 VTI, S 51.0 cm ---- ----- E/e', lat andrés, 17 Mean grad, S 21.0 mm Hg ------- -- TDI Peak grad, S 31.4 mm Hg --------- E', med andrés, TDI 8.9 cm/sec >=7.0 LVOT/AV, VTI ratio 0.49 ---- ----- E/e', med andrés, 12 KAYLEE, VTI 1.54 cm^2 ------- -- TDI KAYLEE, Vmax 1.60 cm^2 --------- E', avg, TDI 7.5 cm/sec E/e', avg, TDI 14 <=14 Mitral valve Value Ref Peak E 1.03 m/sec --------- LVOT Value Ref Peak A 0.79 m/sec --------- Diam, S 2.00 cm Decel time 102 ms --------- Area 3.1 cm^2 Peak grad, D 4.2 mm Hg --------- Peak cheko, S 1.43 m/sec Peak E/A ratio 1.3 --------- VTI, S 25.0 cm Peak grad, S 8 mm Hg Pulmonic valve Value Ref Mean grad, S 5 mm Hg Peak v, S 1.03 m/sec --------- SV 79 ml Peak grad, S 4.0 mm Hg --------- SV/bsa 42 ml/m^2 Aortic root Value Ref Ventricular septum Value Ref Root diam 3.6 cm <4.1 IVS, ED (H) 1.1 cm 0.6 - 1.0 Root max diam, ED 3.4 cm <4.1 Right ventricle Value Ref Ascending aorta Value Ref AW thickness, ED (H) 0.7 cm 0.1 - 0.5 AAo AP diam, S 3.4 cm --------- DANNY, LAX 3.5 cm DANNY minor ax, A4C 3.7 cm 2.5 - 4.1 Aortic arch Value Ref base Arch diam 2.4 cm --------- Left atrium Value Ref Decending aorta Value Ref AP dim, ES (H) 4.30 cm 3.00 - Jenny peak cheko 0.46 m/sec --------- 4.00 ML dim, A4C 4.3 cm SI dim, A4C 5.5 cm Vol/bsa, ES, 1-p 28 ml/m^2 12 - 37 A4C Vol/bsa, ES, A/L (H) 40 ml/m^2 16 - 34 Legend: (L) and (H) galilea values outside specified reference range. Prepared and electronically signed by Kareem Rosenthal MD 12/01/2018 15:09
[2018-12-01] MEDS: Atorvastatin* 10 MG TAB G TUBE SCH (17:47)
[2018-12-01] MEDS: Latanoprost 0.005%* 2.5 ml BTL BOTH EYES SCH (22:40)
[2018-12-02] MEDS: ZOSYN 3.375 GM Q8H per EXTENDED INFUSION IVPB SCH ×6 (02:09→17:56)
[2018-12-02] MEDS ORDERED: Morphine INJ* 2 MG/ML 1 ML SYRINGE (TWO MG - NEW SYRINGE VERSION) IV ONE (03:32)
[2018-12-02] MEDS ORDERED: Lorazepam PYXIS KEY PRN (04:21)
[2018-12-02] MEDS ORDERED: LORazepam INJ* 2 MG/ML 1 ML VIAL IV PUSH ONE (04:21)
--- NOTE | 2018-12-02 08:20 | PN ---
Subjective Date of Service: 12/02/18 Interval History: Patient had an episode of panic overnight. Also had some bloating, tube feeding decreased. He had ativan, is tired now. reports PT did not work with patient yesterday. Patient denies SOB. Family History: Unchanged from Admission Social History: Unchanged from Admission Past Medical History: Unchanged from Admission Objective Active Medications: Acetaminophen (Tylenol Adult Liq*) 650 mg PO Q4H PRN PRN Reason: MILD PAIN or TEMP > 100.4 Last Admin: 12/01/18 18:27 Dose: 650 mg Albuterol/Ipratropium (Duoneb (Albuterol 2.5 Mg/Ipratropium 0.5 Mg)) 1 neb INH [id number] AWAKE PRN PRN Reason: WHEEZING Ascorbic Acid (Vitamin C Tab*) 500 mg G TUBE EVERY OTHER DAY [facility] Last Admin: 11/30/18 11:08 Dose: 500 mg Aspirin (Aspirin 81 Mg Chew Tab*) 81 mg G TUBE DAILY [facility] Last Admin: 12/01/18 09:07 Dose: 81 mg Atorvastatin Calcium (Lipitor*) 10 mg G TUBE QPM [facility] Last Admin: 12/01/18 17:47 Dose: 10 mg Bisacodyl (Dulcolax Supp*) 10 mg FL DAILY PRN PRN Reason: no bm in 3 days Last Admin: 11/30/18 11:12 Dose: 10 mg Carvedilol (Coreg Tab*) 1.5625 mg G TUBE BID [facility] Last Admin: 12/01/18 22:33 Dose: 1.5625 mg Cholecalciferol (Vitamin D Tab*) 1,000 units G TUBE EVERY OTHER DAY [facility] Last Admin: 11/30/18 11:06 Dose: 1,000 units Cyanocobalamin (Vitamin B12 Tab*) 1,000 mcg G TUBE DAILY [facility] Last Admin: 12/01/18 09:07 Dose: 1,000 mcg Enoxaparin Sodium (Lovenox(*)) 70 mg SUBCUT 0900,2100 [facility] Last Admin: 12/01/18 22:32 Dose: 70 mg Ferrous Sulfate (Feosol Liq*) 300 mg G TUBE EVERY OTHER DAY [facility] Last Admin: 11/30/18 11:08 Dose: 300 mg Fluticasone Propionate (Flonase Nasal [place] 50mcg*) 2 spray BOTH NARES DAILY PRN PRN Reason: CONGESTION Last Admin: 12/01/18 09:09 Dose: 2 spray Hydroxychloroquine Sulfate (Plaquenil Tab*) 400 mg G TUBE DAILY [facility] Last Admin: 12/01/18 09:23 Dose: 400 mg Piperacillin Sod/Tazobactam (Sod 3.375 gm/ Sodium Chloride) 100 mls @ 25 mls/ hr IVPB Q8H [facility] Last Admin: 12/02/18 02:09 Dose: 25 mls/hr Ketoconazole (Nizoral 2% Cream (Nf)) 1 applic TOPICAL BID [facility]; Protocol Last Admin: 12/01/18 22:36 Dose: Not Given Lactobacillus Rhamnosus (Lactobacillus Acidophilus*) 1 tab .SEE ORDER BID [facility] Last Admin: 12/01/18 22:33 Dose: 1 tab Lansoprazole (Lansoprazole Susp* Oralsyr) 15 mg PEG TUBE BID [facility] Last Admin: 12/01/18 22:42 Dose: 15 mg Latanoprost (Xalatan 0.005%*) 1 drop BOTH EYES BEDTIME [facility]; Protocol Last Admin: 12/01/18 22:40 Dose: 1 drop Ondansetron HCl (Zofran Inj*) 4 mg IV Q4H PRN PRN Reason: NAUSEA/VOMITING Pharmacy Consult (Zosyn Per Pharmacy*) 1 note FOLLOW UP .ZOSYN PER PHARMACY [facility] Polyethylene Glycol/Electrolytes (Miralax*) 17 gm G TUBE EVERY OTHER DAY [facility] Last Admin: 11/30/18 11:10 Dose: 17 gm Senna (Senokot 8.6 Mg Tab*) 2 tab G TUBE BEDTIME PRN PRN Reason: CONSTIPATION Sertraline HCl (Zoloft*) 150 mg G TUBE DAILY [facility] Last Admin: 12/01/18 09:07 Dose: 150 mg Sodium Biphosphate/Sodium Phosphate (Fleet Enema*) 1 bottle FL DAILY PRN PRN Reason: CONSTIPATION Sodium Chloride (Sodium Chloride 0.65% Nasal [place]*) 1 spray BOTH NARES Q4H PRN PRN Reason: CONGESTION Vital Signs - 8 hr 12/02/18 12/02/18 12/02/18 00:45 03:29 04:59 Temperature 36.4 C 37.3 C Pulse Rate 85 88 Respiratory 18 36 30 Rate Blood Pressure 107/42 106/52 (mmHg) O2 Sat by Pulse 90 95 Oximetry Oxygen Devices in Use Now: Nasal Cannula Appearance: sleeping, arouses to light touch Ears/Nose/Mouth/Throat: Clear Oropharnyx Respiratory: Symmetrical Chest Expansion and Respiratory Effort, - - rales LT base Cardiovascular: RRR, No Edema, - - 2/6 high pitched murmur Lines/Tubes/Other Access: Clean, Dry and Intact Peripheral IV, Clean, Dry and Intact Percuteneous Feeding Tube Nutrition: - - NPO Result Diagrams: 12/01/18 05:30 12/01/18 05:30 Assess/Plan/Problems-Billing Assessment: 78 year old with recurrent strokes, suspected a-fib, dysphagia, G-tube, admitted with sepsis, aspiration pneumonia - Patient Problems (1) Sepsis Current Visit: Yes Status: Acute Priority: High Comment: -Due to aspiration pneumonia, sepsis now resolved -Continue Zosyn (2) Troponin I above reference range Current Visit: Yes Status: Acute Priority: Medium Code(s): R79.89 - OTHER SPECIFIED ABNORMAL FINDINGS OF BLOOD CHEMISTRY SNOMED Code(s): 426061701 Comment: - Discussed case with Dr. 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 [place] - He advised medical management, ASA, beta mónica (3) Myelodysplasia (myelodysplastic syndrome) Current Visit: No Status: Acute Priority: Medium Code(s): D46.9 - MYELODYSPLASTIC SYNDROME, UNSPECIFIED SNOMED Code(s): 097800331 Comment: - Patient's HGB back near baseline, had hemoconcentration - Plaquenil continued (4) Palliative care encounter Current Visit: Yes Status: Acute Priority: Medium Code(s): Z51.5 - ENCOUNTER FOR PALLIATIVE CARE SNOMED Code(s): 372178071 Comment: -Appreciate palliative care consult -current plan is to DC to SNF for rehab in 2-3 days, consider home hospice. -DNR status appropriate (5) Protein calorie malnutrition Current Visit: No Status: Acute Priority: Medium Code(s): E46 - UNSPECIFIED PROTEIN-CALORIE MALNUTRITION SNOMED Code(s): 119479764 Comment: - Tolerating tube feed at 20/hr, will increase today (6) H/O: CVA (cerebrovascular accident) Current Visit: No Status: Chronic Priority: Low Code(s): Z86.73 - PRSNL HX OF TIA (TIA), AND CEREB INFRC W/O RESID DEFICITS SNOMED Code(s): 135735022 Comment: - on Lovenox due to suspected cardioembolic source - PT will see today Status and Disposition: inpatient
[2018-12-02] MEDS: Enoxaparin(*) 80 MG/0.8 ML SYR SUBCUT SCH ×2 (11:07→21:50)
[2018-12-02] MEDS: Lansoprazole SUSP* ORALSYR 3 MG/ML PEG TUBE SCH ×2 (11:07→21:49)
[2018-12-02] MEDS: Fluticasone NASAL SPRAY 50MCG* 16 gm SPRAY BTL BOTH NARES PRN ×2 (11:07→21:52)
[2018-12-02] MEDS: Polyethylene Glycol 3350* 17 GM PACKET G TUBE SCH (11:07)
[2018-12-02] MEDS: Ferrous Sulfate LIQ* 300 MG/5 ML UDC G TUBE SCH (11:08)
[2018-12-02] MEDS: Aspirin 81 mg CHEW TAB* 81 MG TAB.CHEW G TUBE SCH (11:08)
[2018-12-02] MEDS: Cyanocobalamin TAB* 500 MCG G TUBE SCH (11:08)
[2018-12-02] MEDS: Hydroxychloroquine TAB* 200 MG G TUBE SCH (11:08)
[2018-12-02] MEDS: Carvedilol TAB* 3.125 MG G TUBE SCH ×2 (11:09→21:50)
[2018-12-02] MEDS: Sertraline* 100 MG TAB G TUBE SCH (11:09)
[2018-12-02] MEDS: Ascorbic Acid TAB* 500 MG G TUBE SCH (11:09)
[2018-12-02] MEDS: Lactobacillus Acidophilus* 1 TAB SCH ×2 (11:09→21:50)
[2018-12-02] MEDS: Ketoconazole 2 % CREAM (NF) 30 GM TUBE TOPICAL SCH ×2 (11:10→21:52)
[2018-12-02] MEDS: Cholecalciferol TAB* 1000 UNITS G TUBE SCH (11:10)
[2018-12-02] MEDS ORDERED: NS 0.9% w/ 20 Meq KCL 1000 ML* 1,000 ML IV SCH (12:00)
[2018-12-02] MEDS: Atorvastatin* 10 MG TAB G TUBE SCH (17:56)
[2018-12-02] MEDS: Latanoprost 0.005%* 2.5 ml BTL BOTH EYES SCH (21:52)
[2018-12-03] MEDS: ZOSYN 3.375 GM Q8H per EXTENDED INFUSION IVPB SCH ×4 (02:29→09:45)
[2018-12-03 06:33] LABS: ABS Lymphocytes 0.5 10^3/ul (1.0-4.8); ABS Monocytes 0.1 10^3/ul (0-0.8); ABS Neutrophils 0.8 10^3/ul (1.5-7.7); Eosinophil % 0.5 %; Hematocrit 21 % (42-52); Hemoglobin 6.4 g/dL (14.0-18.0); Lymphocyte % 35.2 %; Mean Corpuscular HGB Conc 31 g/dL (31-36); Mean Corpuscular Hemoglobin 28 pg (27-31); Mean Corpuscular Volume 90 fL (80-94); Mean Platelet Volume 11.9 fL (7.4-10.4); Nucleated Red Blood Cells % 0.4; Platelet Count 59 10^3/uL (150-450); Red Cell Distribution Width 19 % (10-15); White Blood Count 1.4 10^3/uL (3.5-10.8)
[2018-12-03 06:37] LABS: BUN/Creatinine Ratio 17.9 (8-20); C Reactive Protein 189.92 mg/L (<8.01); Calcium 8.1 mg/dL (8.6-10.3); EGFR African American 115.9 (>60); EGFR Non-African American 95.8 (>60); Potassium 3.2 mmol/L (3.5-5.0)
[2018-12-03 07:31] LABS: Hematocrit 22 % (42-52); Hemoglobin 6.9 g/dL (14.0-18.0); Mean Corpuscular HGB Conc 31 g/dL (31-36); Mean Corpuscular Hemoglobin 28 pg (27-31); Mean Corpuscular Volume 90 fL (80-94); Mean Platelet Volume 11.7 fL (7.4-10.4); Platelet Count 58 10^3/uL (150-450); Red Blood Count 2.45 10^6 /uL (4.18-5.48); Red Cell Distribution Width 19 % (10-15); White Blood Count 1.6 10^3/uL (3.5-10.8)
[2018-12-03 07:50] LABS: ABS Lymphocytes 0.5 10^3/ul (1.0-4.8); ABS Monocytes 0.1 10^3/ul (0-0.8); ABS Neutrophils 0.9 10^3/ul (1.5-7.7); Eosinophil % 0.5 %; Lymphocyte % 34.2 %; Nucleated Red Blood Cells % 0.4
[2018-12-03] MEDS: Ketoconazole 2 % CREAM (NF) 30 GM TUBE TOPICAL SCH ×2 (08:05→22:00)
[2018-12-03] MEDS: Cyanocobalamin TAB* 500 MCG G TUBE SCH (08:24)
[2018-12-03] MEDS: Carvedilol TAB* 3.125 MG G TUBE SCH ×2 (08:24→21:57)
[2018-12-03] MEDS: Fluticasone NASAL SPRAY 50MCG* 16 gm SPRAY BTL BOTH NARES PRN ×2 (08:24→22:17)
[2018-12-03] MEDS: Lactobacillus Acidophilus* 1 TAB SCH ×2 (08:25→21:57)
[2018-12-03] MEDS: Sertraline* 100 MG TAB G TUBE SCH (08:26)
[2018-12-03] MEDS: Aspirin 81 mg CHEW TAB* 81 MG TAB.CHEW G TUBE SCH (08:26)
[2018-12-03] MEDS: Potassium Chloride* LIQUID 20 MEQ/15 ML UDC PEG TUBE SCH (10:37)
[2018-12-03] MEDS: Lansoprazole SUSP* ORALSYR 3 MG/ML PEG TUBE SCH ×2 (10:37→21:57)
--- NOTE | 2018-12-03 11:15 | PN ---
Subjective Date of Service: 12/03/18 Interval History: Patient says he is "fine." He had more fevers overnight, and is more lethargic. was unable to get more recent MOLST form from [facility]. She wants him to be DNR/DNI. Family History: Unchanged from Admission Social History: Unchanged from Admission Past Medical History: Unchanged from Admission Objective Active Medications: Acetaminophen (Tylenol Adult Liq*) 650 mg PO Q4H PRN PRN Reason: MILD PAIN or TEMP > 100.4 Last Admin: 12/01/18 18:27 Dose: 650 mg Albuterol/Ipratropium (Duoneb (Albuterol 2.5 Mg/Ipratropium 0.5 Mg)) 1 neb INH [id number] AWAKE PRN PRN Reason: WHEEZING Ascorbic Acid (Vitamin C Tab*) 500 mg G TUBE EVERY OTHER DAY [facility] Last Admin: 12/02/18 11:09 Dose: 500 mg Aspirin (Aspirin 81 Mg Chew Tab*) 81 mg G TUBE DAILY [facility] Last Admin: 12/03/18 08:26 Dose: 81 mg Atorvastatin Calcium (Lipitor*) 10 mg G TUBE QPM [facility] Last Admin: 12/02/18 17:56 Dose: 10 mg Bisacodyl (Dulcolax Supp*) 10 mg NM DAILY PRN PRN Reason: no bm in 3 days Last Admin: 11/30/18 11:12 Dose: 10 mg Carvedilol (Coreg Tab*) 1.5625 mg G TUBE BID [facility] Last Admin: 12/03/18 08:24 Dose: 1.5625 mg Cholecalciferol (Vitamin D Tab*) 1,000 units G TUBE EVERY OTHER DAY [facility] Last Admin: 12/02/18 11:10 Dose: 1,000 units Cyanocobalamin (Vitamin B12 Tab*) 1,000 mcg G TUBE DAILY [facility] Last Admin: 12/03/18 08:24 Dose: 1,000 mcg Ferrous Sulfate (Feosol Liq*) 300 mg G TUBE EVERY OTHER DAY [facility] Last Admin: 12/02/18 11:08 Dose: 300 mg Fluticasone Propionate (Flonase Nasal [place] 50mcg*) 2 spray BOTH NARES DAILY PRN PRN Reason: CONGESTION Last Admin: 12/03/18 08:24 Dose: 2 spray Ketoconazole (Nizoral 2% Cream (Nf)) 1 applic TOPICAL BID [facility]; Protocol Last Admin: 12/03/18 08:05 Dose: Not Given Lactobacillus Rhamnosus (Lactobacillus Acidophilus*) 1 tab .SEE ORDER BID [facility] Last Admin: 12/03/18 08:25 Dose: 1 tab Lansoprazole (Lansoprazole Susp* Oralsyr) 15 mg PEG TUBE BID [facility] Last Admin: 12/03/18 10:37 Dose: 15 mg Latanoprost (Xalatan 0.005%*) 1 drop BOTH EYES BEDTIME [facility]; Protocol Last Admin: 12/02/18 21:52 Dose: 1 drop Ondansetron HCl (Zofran Inj*) 4 mg IV Q4H PRN PRN Reason: NAUSEA/VOMITING Pharmacy Consult (Zosyn Per Pharmacy*) 1 note FOLLOW UP .ZOSYN PER PHARMACY [facility] Polyethylene Glycol/Electrolytes (Miralax*) 17 gm G TUBE EVERY OTHER DAY [facility] Last Admin: 12/02/18 11:07 Dose: 17 gm Potassium Chloride (Potassium Chloride Liquid) 20 meq PEG TUBE DAILY [facility] Last Admin: 12/03/18 10:37 Dose: 20 meq Senna (Senokot 8.6 Mg Tab*) 2 tab G TUBE BEDTIME PRN PRN Reason: CONSTIPATION Sertraline HCl (Zoloft*) 150 mg G TUBE DAILY [facility] Last Admin: 12/03/18 08:26 Dose: 150 mg Sodium Biphosphate/Sodium Phosphate (Fleet Enema*) 1 bottle [place] DAILY PRN PRN Reason: CONSTIPATION Sodium Chloride (Sodium Chloride 0.65% Nasal [place]*) 1 spray BOTH NARES Q4H PRN PRN Reason: CONGESTION Vital Signs - 8 hr 12/03/18 12/03/18 12/03/18 04:51 07:11 07:15 Temperature 37.3 C 36.7 C Pulse Rate 92 90 Respiratory 20 20 20 Rate Blood Pressure 119/58 119/54 (mmHg) O2 Sat by Pulse 96 96 93 Oximetry Oxygen Devices in Use Now: Nasal Cannula Appearance: sleeping, arouses to light touch Neck: NL Appearance and Movements; NL JVP Respiratory: - - ronchi LLL Cardiovascular: NL Sounds; No Murmurs; No JVD Abdominal: NL Sounds; No Tenderness; No Distention, - - G-tube Lymphatic: No Cervical Adenopathy Lines/Tubes/Other Access: Clean, Dry and Intact Peripheral IV, Clean, Dry and Intact Percuteneous Feeding Tube - tolerating 50 ml/hr Nutrition: - - NPO Result Diagrams: 12/03/18 07:06 12/03/18 06:02 Additional Lab and Data: Laboratory Tests 12/03/18 12/03/18 06:02 07:06 Absolute Neuts (auto) 0.9 L* Absolute Lymphs (auto) 0.5 L C-Reactive Protein 189.92 H Microbiology and Other Data: Microbiology 11/30/18 08:27 Blood Venous Aerobic Blood Culture - Preliminary 11/30/18 08:27 Blood Venous Anaerobic Blood Culture - Preliminary No Growth Day 3 No Growth Day 3 11/30/18 05:52 Blood Venous Aerobic Blood Culture - Preliminary 11/30/18 05:52 Blood Venous Anaerobic Blood Culture - Preliminary No Growth Day 3 No Growth Day 3 Assess/Plan/Problems-Billing Assessment: 78 year old with recurrent strokes, suspected a-fib, dysphagia, G-tube, admitted with sepsis, aspiration pneumonia - Patient Problems (1) Sepsis Current Visit: Yes Status: Acute Priority: High Comment: - Due to aspiration pneumonia - Fevers, dropping WBC concerning for continued sepsis - Switched to Levaquin, as Zosyn can cause neutropenia (2) Troponin I above reference range Current Visit: Yes Status: Acute Priority: Medium Code(s): R79.89 - OTHER SPECIFIED ABNORMAL FINDINGS OF BLOOD CHEMISTRY SNOMED Code(s): 302642067 Comment: - Dr. Busch advised medical management, ASA, beta mónica (3) Myelodysplasia (myelodysplastic syndrome) Current Visit: No Status: Acute Priority: Medium Code(s): D46.9 - MYELODYSPLASTIC SYNDROME, UNSPECIFIED SNOMED Code(s): 514796405 Comment: - Patient's HGB back near baseline, had hemoconcentration - Plaquenil was for RA?, stopped due to worsening pancytopenia - Spoke with Russ WAITE, could give neupogen tomorrow if still neutropenic - Neutro precautions started. (4) Palliative care encounter Current Visit: Yes Status: Acute Priority: Medium Code(s): Z51.5 - ENCOUNTER FOR PALLIATIVE CARE SNOMED Code(s): 423256289 Comment: -Appreciate palliative care consult -consider home in residential hospice. -DNR status updated with , to DNR/DNI (5) Protein calorie malnutrition Current Visit: No Status: Acute Priority: Medium Code(s): E46 - UNSPECIFIED PROTEIN-CALORIE MALNUTRITION SNOMED Code(s): 352593565 Comment: - Tolerating tube feed at 50/hr, will increase today (6) H/O: CVA (cerebrovascular accident) Current Visit: No Status: Chronic Priority: Low Code(s): Z86.73 - PRSNL HX OF TIA (TIA), AND CEREB INFRC W/O RESID DEFICITS SNOMED Code(s): 612590279 Comment: - Lovenox held due to low platelets Status and Disposition: inpatient
[2018-12-03] MEDS: Levofloxacin 750 MG IVPREMIX(* 750 MG/150 ML BAG IVPB SCH (12:17)
[2018-12-03] MEDS: Acetaminophen ADULT LIQ* 650 MG/20.3 ML UDC PO PRN ×2 (17:00→21:56)
[2018-12-03] MEDS: Atorvastatin* 10 MG TAB G TUBE SCH (17:35)
[2018-12-03] MEDS: Latanoprost 0.005%* 2.5 ml BTL BOTH EYES SCH (22:00)
[2018-12-03] MEDS: Ondansetron INJ* 2 MG/ML VIAL IV PRN (22:17)
[2018-12-04] MEDS: Acetaminophen ADULT LIQ* 650 MG/20.3 ML UDC PO PRN ×2 (02:15→11:23)
[2018-12-04 06:36] LABS: ABS Lymphocytes 0.5 10^3/ul (1.0-4.8); ABS Monocytes 0.1 10^3/ul (0-0.8); Eosinophil % 0.2 %; Hematocrit 25 % (42-52); Hemoglobin 7.2 g/dL (14.0-18.0); Lymphocyte % 31.4 %; Mean Corpuscular HGB Conc 29 g/dL (31-36); Mean Corpuscular Hemoglobin 28 pg (27-31); Mean Corpuscular Volume 97 fL (80-94); Nucleated Red Blood Cells % 0.1; Platelet Count 73 10^3/uL (150-450); Red Blood Count 2.56 10^6 /uL (4.18-5.48); Red Cell Distribution Width 20 % (10-15); White Blood Count 1.6 10^3/uL (3.5-10.8)
[2018-12-04 06:42] LABS: C Reactive Protein 123.15 mg/L (<8.01); Calcium 8.3 mg/dL (8.6-10.3); EGFR African American 110.9 (>60); EGFR Non-African American 91.7 (>60)
[2018-12-04 07:07] LABS: Potassium 3.7 mmol/L (3.5-5.0)
[2018-12-04] MEDS: Ferrous Sulfate LIQ* 300 MG/5 ML UDC G TUBE SCH (08:45)
[2018-12-04] MEDS: Potassium Chloride* LIQUID 20 MEQ/15 ML UDC PEG TUBE SCH (08:45)
[2018-12-04] MEDS: Cyanocobalamin TAB* 500 MCG G TUBE SCH (08:46)
[2018-12-04] MEDS: Aspirin 81 mg CHEW TAB* 81 MG TAB.CHEW G TUBE SCH (08:46)
[2018-12-04] MEDS: Lactobacillus Acidophilus* 1 TAB SCH ×2 (08:46→22:01)
[2018-12-04] MEDS: Sertraline* 100 MG TAB G TUBE SCH (08:46)
[2018-12-04] MEDS: Ascorbic Acid TAB* 500 MG G TUBE SCH (08:46)
[2018-12-04] MEDS: Cholecalciferol TAB* 1000 UNITS G TUBE SCH (08:46)
[2018-12-04] MEDS: Carvedilol TAB* 3.125 MG G TUBE SCH ×2 (08:46→22:01)
[2018-12-04] MEDS: Polyethylene Glycol 3350* 17 GM PACKET G TUBE SCH (08:47)
[2018-12-04] MEDS: Ketoconazole 2 % CREAM (NF) 30 GM TUBE TOPICAL SCH ×2 (08:47→22:01)
[2018-12-04] MEDS: Lansoprazole SUSP* ORALSYR 3 MG/ML PEG TUBE SCH ×2 (08:48→22:00)
[2018-12-04] MEDS: Levofloxacin 750 MG IVPREMIX(* 750 MG/150 ML BAG IVPB SCH (11:23)
[2018-12-04] MEDS ORDERED: Senna TAB 8.6 mg* TAB G TUBE ONE (12:02)
[2018-12-04] MEDS ORDERED: Magnesium Hydroxide LIQ* 30 ML UDC PO ONE (12:30)
[2018-12-04] MEDS: Atorvastatin* 10 MG TAB G TUBE SCH (17:39)
--- NOTE | 2018-12-04 17:40 | PN ---
Progress Note - Progress Note Date of Service: 12/04/18 Note: [place] wants to meet tomorrow instead of today.
--- NOTE | 2018-12-04 18:21 | PN ---
Subjective Date of Service: 12/04/18 Interval History: Switched from pip/tazo to levofloxacin yesterday given neutropenia. With intermittent fevers today. reports patient appears slightly weaker, also has not had a BM in 4 days. Has not been receiving prn bowel regimen. Would prefer vanc/cefepime for neutropenic fever, however pt has vancomycin allergy. expressing reluctance to continue lab draws (pt visibly uncomfortable getting cultures drawn today). Objective Active Medications: Acetaminophen (Tylenol Adult Liq*) 650 mg PO Q4H PRN PRN Reason: MILD PAIN or TEMP > 100.4 Last Admin: 12/04/18 11:23 Dose: 650 mg Albuterol/Ipratropium (Duoneb (Albuterol 2.5 Mg/Ipratropium 0.5 Mg)) 1 neb INH RT.[id number] AWAKE PRN PRN Reason: WHEEZING Ascorbic Acid (Vitamin C Tab*) 500 mg G TUBE EVERY OTHER DAY [facility] Last Admin: 12/04/18 08:46 Dose: 500 mg Aspirin (Aspirin 81 Mg Chew Tab*) 81 mg G TUBE DAILY [facility] Last Admin: 12/04/18 08:46 Dose: 81 mg Atorvastatin Calcium (Lipitor*) 10 mg G TUBE QPM [facility] Last Admin: 12/04/18 17:39 Dose: 10 mg Bisacodyl (Dulcolax Supp*) [address] DAILY PRN PRN Reason: no bm in 3 days Last Admin: 11/30/18 11:12 Dose: 10 mg Carvedilol (Coreg Tab*) 1.5625 mg G TUBE BID [facility] Last Admin: 12/04/18 22:01 Dose: 1.5625 mg Cholecalciferol (Vitamin D Tab*) 1,000 units G TUBE EVERY OTHER DAY [facility] Last Admin: 12/04/18 08:46 Dose: 1,000 units Cyanocobalamin (Vitamin B12 Tab*) 1,000 mcg G TUBE DAILY [facility] Last Admin: 12/04/18 08:46 Dose: 1,000 mcg Ferrous Sulfate (Feosol Liq*) 300 mg G TUBE EVERY OTHER DAY [facility] Last Admin: 12/04/18 08:45 Dose: 300 mg Fluticasone Propionate (Flonase Nasal [place] 50mcg*) 2 spray BOTH NARES DAILY PRN PRN Reason: CONGESTION Last Admin: 12/03/18 22:17 Dose: 2 spray Guaifenesin (Robitussin*) 5 ml PO Q6H PRN PRN Reason: COUGH Last Admin: 12/04/18 22:01 Dose: 5 ml Cefepime HCl (Maxipime 2 Gm In Dextrose Duplex (*)) 2 gm in 50 mls @ 100 mls/ hr IV Q12H [facility] Last Admin: 12/05/18 06:04 Dose: 100 mls/hr Ketoconazole (Nizoral 2% Cream (Nf)) 1 applic TOPICAL BID [facility]; Protocol Last Admin: 12/04/18 22:01 Dose: 1 applic Lactobacillus Rhamnosus (Lactobacillus Acidophilus*) 1 tab .SEE ORDER BID [facility] Last Admin: 12/04/18 22:01 Dose: 1 tab Lansoprazole (Lansoprazole Susp* Oralsyr) 15 mg PEG TUBE BID [facility] Last Admin: 12/04/18 22:00 Dose: 15 mg Latanoprost (Xalatan 0.005%*) 1 drop BOTH EYES BEDTIME [facility]; Protocol Last Admin: 12/04/18 22:01 Dose: 1 drop Miscellaneous (Ativan Pyxis Spencer) 1 ea N/A .ATIVAN IV SPENCER PRN PRN Reason: PYXIS SPENCER Ondansetron HCl (Zofran Inj*) 4 mg IV Q4H PRN PRN Reason: NAUSEA/VOMITING Last Admin: 12/03/18 22:17 Dose: 4 mg Polyethylene Glycol/Electrolytes (Miralax*) 17 gm G TUBE EVERY OTHER DAY [facility] Last Admin: 12/04/18 08:47 Dose: 17 gm Potassium Chloride (Potassium Chloride Liquid) 20 meq PEG TUBE DAILY [facility] Last Admin: 12/04/18 08:45 Dose: 20 meq Senna (Senokot 8.6 Mg Tab*) 2 tab G TUBE BEDTIME PRN PRN Reason: CONSTIPATION Last Admin: 12/05/18 00:38 Dose: 2 tab Sertraline HCl (Zoloft*) 150 mg G TUBE DAILY [facility] Last Admin: 12/04/18 08:46 Dose: 150 mg Sodium Biphosphate/Sodium Phosphate (Fleet Enema*) [address] DAILY PRN PRN Reason: CONSTIPATION Sodium Chloride (Sodium Chloride 0.65% Nasal [place]*) 1 spray BOTH NARES Q4H PRN PRN Reason: CONGESTION Vital Signs - 8 hr 12/04/18 11:15 Temperature 101.8 F Pulse Rate 90 Blood Pressure 112/51 (mmHg) O2 Sat by Pulse 91 Oximetry Oxygen Devices in Use Now: None Appearance: chronically ill appearing man in NAD Eyes: No Scleral Icterus Ears/Nose/Mouth/Throat: Clear Oropharnyx, Mucous Membranes Moist Respiratory: Symmetrical Chest Expansion and Respiratory Effort, - - mucous rattle Cardiovascular: RRR, - - systolic murmur Abdominal: NL Sounds; No Tenderness; No Distention, No Hepatosplenomegaly Extremities: No Edema Neurological: - - occasionally one-word responses to questions Result Diagrams: 12/04/18 05:21 12/04/18 05:21 Additional Lab and Data: Laboratory Tests 12/03/18 12/03/18 06:02 07:06 Absolute Neuts (auto) 0.9 L* Absolute Lymphs (auto) 0.5 L C-Reactive Protein 189.92 H Microbiology and Other Data: Microbiology 11/30/18 08:27 Blood Venous Aerobic Blood Culture - Preliminary 11/30/18 08:27 Blood Venous Anaerobic Blood Culture - Preliminary No Growth Day 3 No Growth Day 3 11/30/18 05:52 Blood Venous Aerobic Blood Culture - Preliminary 11/30/18 05:52 Blood Venous Anaerobic Blood Culture - Preliminary No Growth Day 3 No Growth Day 3 EKG Data: sinus tach, LBBB on admission Assess/Plan/Problems-Billing Assessment: 78 year old with recurrent strokes, suspected a-fib, dysphagia, G-tube, admitted with sepsis, aspiration pneumonia - Patient Problems (1) Sepsis Comment: Due to aspiration pneumonia - Switched to Levaquin (12/03 - 12/04), as Zosyn (11/30 - 12/03) can cause neutropenia - started on cefepime (12/04 - ), prefer to give with vanc given neutropenia, will discuss prior allergy with - aspiration precautions (2) Palliative care encounter Comment: -Appreciate palliative care consult -consider home in residential hospice. -DNR status updated with , to DNR/DNI (3) Myelodysplasia (myelodysplastic syndrome) Comment: - Plaquenil was for RA?, stopped due to worsening pancytopenia - Pending Onc consult, may require Neupogen - Neutro precautions started. (4) Troponin I above reference range Comment: - Dr. Busch advised medical management, ASA, beta mónica (5) H/O: CVA (cerebrovascular accident) Comment: Suspected cardioembolic source, but AC held given history of recent bleed. - s/p PEG, will obtain swallow eval for pleasure foods (6) DNR (do not resuscitate) Current Visit: No Status: Acute Comment: - See discussion from 11/23 in blank prog note Status and Disposition: inpatient
[2018-12-04] MEDS ORDERED: Vancomycin per Pharmacy* NOTE FOLLOW UP SCH (19:00)
[2018-12-04] MEDS: Cefepime 2 GM in Dextrose(*) 2 GM/50 ML BAG IV SCH (19:59)
[2018-12-04] MEDS ORDERED: guaiFENesin ER TAB 600 MG PO SCH (21:00)
[2018-12-04] MEDS: guaiFENesin 100 mg/5 ml LIQ unit dose cup PO PRN (22:01)
[2018-12-04] MEDS: Latanoprost 0.005%* 2.5 ml BTL BOTH EYES SCH (22:01)
[2018-12-05] MEDS: Senna TAB 8.6 mg* TAB G TUBE PRN ×2 (00:38→19:41)
[2018-12-05] MEDS: Cefepime 2 GM in Dextrose(*) 2 GM/50 ML BAG IV SCH ×2 (06:04→18:09)
--- NOTE | 2018-12-05 07:53 | PN ---
Subjective Date of Service: 12/05/18 Interval History: Fever last night to 101.8. Palliative care consult deferred to today ( request). Onc to see patient today for MDS, neutropenia. Blood cultures drawn during fever yesterday still pending. Family History: Unchanged from Admission Social History: Unchanged from Admission Past Medical History: Unchanged from Admission Objective Active Medications: Acetaminophen (Tylenol Adult Liq*) 650 mg PO Q4H PRN PRN Reason: MILD PAIN or TEMP > 100.4 Last Admin: 12/04/18 11:23 Dose: 650 mg Albuterol/Ipratropium (Duoneb (Albuterol 2.5 Mg/Ipratropium 0.5 Mg)) 1 neb INH RT.[id number] AWAKE PRN PRN Reason: WHEEZING Ascorbic Acid (Vitamin C Tab*) 500 mg G TUBE EVERY OTHER DAY [facility] Last Admin: 12/04/18 08:46 Dose: 500 mg Aspirin (Aspirin 81 Mg Chew Tab*) 81 mg G TUBE DAILY [facility] Last Admin: 12/04/18 08:46 Dose: 81 mg Atorvastatin Calcium (Lipitor*) 10 mg G TUBE QPM [facility] Last Admin: 12/04/18 17:39 Dose: 10 mg Bisacodyl (Dulcolax Supp*) 10 mg [place] DAILY PRN PRN Reason: no bm in 3 days Last Admin: 11/30/18 11:12 Dose: 10 mg Carvedilol (Coreg Tab*) 1.5625 mg G TUBE BID [facility] Last Admin: 12/04/18 22:01 Dose: 1.5625 mg Cholecalciferol (Vitamin D Tab*) 1,000 units G TUBE EVERY OTHER DAY [facility] Last Admin: 12/04/18 08:46 Dose: 1,000 units Cyanocobalamin (Vitamin B12 Tab*) 1,000 mcg G TUBE DAILY [facility] Last Admin: 12/04/18 08:46 Dose: 1,000 mcg Ferrous Sulfate (Feosol Liq*) 300 mg G TUBE EVERY OTHER DAY [facility] Last Admin: 12/04/18 08:45 Dose: 300 mg Fluticasone Propionate (Flonase Nasal [place] 50mcg*) 2 spray BOTH NARES DAILY PRN PRN Reason: CONGESTION Last Admin: 12/03/18 22:17 Dose: 2 spray Guaifenesin (Robitussin*) 5 ml PO Q6H PRN PRN Reason: COUGH Last Admin: 12/04/18 22:01 Dose: 5 ml Cefepime HCl (Maxipime 2 Gm In Dextrose Duplex (*)) 2 gm in 50 mls @ 100 mls/ hr IV Q12H [facility] Last Admin: 12/05/18 06:04 Dose: 100 mls/hr Ketoconazole (Nizoral 2% Cream (Nf)) 1 applic TOPICAL BID [facility]; Protocol Last Admin: 12/04/18 22:01 Dose: 1 applic Lactobacillus Rhamnosus (Lactobacillus Acidophilus*) 1 tab .SEE ORDER BID [facility] Last Admin: 12/04/18 22:01 Dose: 1 tab Lansoprazole (Lansoprazole Susp* Oralsyr) 15 mg PEG TUBE BID [facility] Last Admin: 12/04/18 22:00 Dose: 15 mg Latanoprost (Xalatan 0.005%*) 1 drop BOTH EYES BEDTIME [facility]; Protocol Last Admin: 12/04/18 22:01 Dose: 1 drop Miscellaneous (Ativan Pyxis [place]) 1 ea N/A .ATIVAN IV SPENCER PRN PRN Reason: PYXIS SPENCER Ondansetron HCl (Zofran Inj*) 4 mg IV Q4H PRN PRN Reason: NAUSEA/VOMITING Last Admin: 12/03/18 22:17 Dose: 4 mg Polyethylene Glycol/Electrolytes (Miralax*) 17 gm G TUBE EVERY OTHER DAY [facility] Last Admin: 12/04/18 08:47 Dose: 17 gm Potassium Chloride (Potassium Chloride Liquid) 20 meq PEG TUBE DAILY [facility] Last Admin: 12/04/18 08:45 Dose: 20 meq Senna (Senokot 8.6 Mg Tab*) 2 tab G TUBE BEDTIME PRN PRN Reason: CONSTIPATION Last Admin: 12/05/18 00:38 Dose: 2 tab Sertraline HCl (Zoloft*) 150 mg G TUBE DAILY [facility] Last Admin: 12/04/18 08:46 Dose: 150 mg Sodium Biphosphate/Sodium Phosphate (Fleet Enema*) 1 bottle [place] DAILY PRN PRN Reason: CONSTIPATION Sodium Chloride (Sodium Chloride 0.65% Nasal [place]*) 1 spray BOTH NARES Q4H PRN PRN Reason: CONGESTION Vital Signs - 8 hr 12/04/18 12/05/18 23:58 05:22 Temperature 99.7 F 98.6 F Pulse Rate 94 94 Respiratory 19 20 Rate Blood Pressure 130/48 116/96 (mmHg) O2 Sat by Pulse 98 94 Oximetry Oxygen Devices in Use Now: None Appearance: chronically ill appearing elderly man in nAD Eyes: No Scleral Icterus Ears/Nose/Mouth/Throat: Clear Oropharnyx, Mucous Membranes Moist Neck: NL Appearance and Movements; NL JVP, Trachea Midline Respiratory: - - ronchi anteriorly Cardiovascular: NL Sounds; No Murmurs; No JVD, RRR Abdominal: NL Sounds; No Tenderness; No Distention, No Hepatosplenomegaly Extremities: No Edema Skin: No Rash or Ulcers Result Diagrams: 12/06/18 05:24 12/05/18 10:06 Additional Lab and Data: Laboratory Tests 12/03/18 12/03/18 06:02 07:06 Absolute Neuts (auto) 0.9 L* Absolute Lymphs (auto) 0.5 L C-Reactive Protein 189.92 H Microbiology and Other Data: Microbiology 11/30/18 08:27 Blood Venous Aerobic Blood Culture - Preliminary 11/30/18 08:27 Blood Venous Anaerobic Blood Culture - Preliminary No Growth Day 3 No Growth Day 3 11/30/18 05:52 Blood Venous Aerobic Blood Culture - Preliminary 11/30/18 05:52 Blood Venous Anaerobic Blood Culture - Preliminary No Growth Day 3 No Growth Day 3 EKG Data: sinus tach, LBBB on admission Assess/Plan/Problems-Billing Assessment: 78 year old with recurrent strokes, suspected a-fib, dysphagia, G-tube, admitted with sepsis, aspiration pneumonia - Patient Problems (1) Sepsis Comment: Due to aspiration pneumonia, althought fevers did not stop with typical CAP/anaerobe coverage. Could have abscess or a drug-resistant organism, however patient now comfort care, so wlil not pursue further investigations. - s/p Zosyn (11/30 - 12/03), Levaquin (12/03 - 12/04), cefepime (12/04 - 12/06) - aspiration precautions (2) Palliative care encounter Comment: - appreciate palliative care consult - plan for [place] with hospice on 12/08 (3) Myelodysplasia (myelodysplastic syndrome) Comment: Onc saw patient. Did not recommend Neupogen. (4) Troponin I above reference range Comment: - Dr. Busch advised medical management, ASA, beta mónica (5) H/O: CVA (cerebrovascular accident) Comment: Suspected cardioembolic source, but AC held given history of recent bleed. - s/p PEG, can have pleasure tastes (6) DNR (do not resuscitate) Current Visit: No Status: Acute Comment: Plan for hospice on DC. Comfort measures only now. Status and Disposition: inpatient
[2018-12-05 10:31] LABS: Hematocrit 22 % (42-52); Hemoglobin 6.7 g/dL (14.0-18.0); Mean Corpuscular HGB Conc 31 g/dL (31-36); Mean Corpuscular Hemoglobin 28 pg (27-31); Mean Corpuscular Volume 89 fL (80-94); Mean Platelet Volume 11.5 fL (7.4-10.4); Platelet Count 79 10^3/uL (150-450); Red Blood Count 2.43 10^6 /uL (4.18-5.48); Red Cell Distribution Width 20 % (10-15); White Blood Count 2.5 10^3/uL (3.5-10.8)
[2018-12-05 10:45] LABS: Calcium 8.7 mg/dL (8.6-10.3); EGFR African American 112.5 (>60); Magnesium 1.9 mg/dL (1.9-2.7); Potassium 4.5 mmol/L (3.5-5.0)
[2018-12-05 10:57] LABS: ABS Lymphocytes 0.8 10^3/ul (1.0-4.8); ABS Monocytes 0.2 10^3/ul (0-0.8); ABS Neutrophils 1.5 10^3/ul (1.5-7.7); Eosinophil % 0.2 %; Lymphocyte % 31.2 %; Nucleated Red Blood Cells % 0.1
[2018-12-05] MEDS: Lactobacillus Acidophilus* 1 TAB SCH ×2 (10:57→19:41)
[2018-12-05] MEDS: Carvedilol TAB* 3.125 MG G TUBE SCH ×2 (10:58→19:40)
[2018-12-05] MEDS: Sertraline* 100 MG TAB G TUBE SCH (10:58)
[2018-12-05] MEDS: Aspirin 81 mg CHEW TAB* 81 MG TAB.CHEW G TUBE SCH (10:58)
[2018-12-05] MEDS: Potassium Chloride* LIQUID 20 MEQ/15 ML UDC PEG TUBE SCH (10:59)
[2018-12-05] MEDS: Lansoprazole SUSP* ORALSYR 3 MG/ML PEG TUBE SCH ×2 (10:59→19:40)
[2018-12-05] MEDS: Ketoconazole 2 % CREAM (NF) 30 GM TUBE TOPICAL SCH ×2 (15:38→19:42)
[2018-12-05] MEDS: Atorvastatin* 10 MG TAB G TUBE SCH (18:09)
[2018-12-05] MEDS: Cyanocobalamin TAB* 500 MCG G TUBE SCH (18:09)
[2018-12-05] MEDS: Ondansetron INJ* 2 MG/ML VIAL IV PRN (19:39)
[2018-12-05] MEDS: guaiFENesin 100 mg/5 ml LIQ unit dose cup PO PRN (19:40)
[2018-12-05] MEDS: Latanoprost 0.005%* 2.5 ml BTL BOTH EYES SCH (19:42)
--- NOTE | 2018-12-05 20:52 | CONS ---
CC: Dr. Benny Vallecillo * MEDICAL ONCOLOGY/HEMATOLOGY CONSULTATION NOTE: DATE OF CONSULT: 12/05/18 REASON FOR CONSULT: Myelodysplastic syndrome. 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 He has had major problems with cytopenias since 1998 and has been followed in our office since 2000. He refused a bone marrow biopsy at that point and one was never obtained until much later in his course. He typically ran white counts around 3600, hemoglobin and hematocrit were about 30 to 35 over 10, and platelet counts in the 90,000 to 120,000 range for many years through 2014. In early 2015, his counts worsened significantly and he agreed to a bone marrow biopsy. At that time, his bone marrow was quite hypercellular at 75%. 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 His pancytopenia worsened and he needed packed red blood cells on multiple occasions in 2016 for hemoglobins as low as 7. He was tried on Epogen in early 2016 without significant improvement on either 20,000 or 40,000 unit dosing of Epogen. He continued to receive packed red blood cells over the next 18 months through the end of 2017. He was started on Neupogen at 480 mcg 3 times per week with a much improved white count and ANC. Prior to institution of Neupogen, his ANC had ranged from 300 to 1000 for several years; on Neupogen, it went within normal range. He subsequently was able to stop his Neupogen in early 2018 and also had stopped his Epogen and had these counts essentially in the normal range. His platelets have remained low, but were rarely under 60,000 for many years. More recently, his platelet count has been running in the 75,000 to 90, 000 range over much of this year and only occasionally lower. His ANC typically has ranged in the 1000 to 2000 range throughout this year with lower counts just recently at 800 and 900 on 12/03/18, 1000 on 12/04/18, and 1500 today. He has been quite anemic at times, although typically throughout this year he has had hemoglobins early in the year of to 12 and then since early October in the 9 range and more recently in the 7 range. He has had transfusions recently of 2 units of packed red blood cells between 11/23/18 and 11/24/18, and with this, had very little change in his H and H and it has been remaining stable since. He has now had multiple hospitalizations over the past several weeks. Situation was discussed with his on multiple occasions over this period of time, although typically at her request and not as part of the typical hospital chart. He has been mostly in the hospital with only short discharges and quick readmissions over the past several weeks. Hospitalization with aspiration pneumonia. This has happened on several occasions. He has been treated with IV fluids along with IV antibiotics. It is unclear as to how well he can tolerate anything by mouth, although was given some small amounts of soft food by speech therapist and seemed to not aspirate it. On prolonged discussion with his today, his recognizes that his quality of life has been very poor and that he is unlikely to have significant recovery due to recurrent aspiration pneumonias, ongoing aspiration, ongoing neurologic difficulties. 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 I have advised her that I doubt that his quality of life will improve to any meaningful extent and that pursuing hospice and focusing on quality of life would make the most sense. It would be reasonable in the short run to try to improve his ANC to make him be less likely to have an acute infection in the near future, but subsequent to hopefully improving his neutrophil count over the next several days, I would not recommend further transfusions or further use of colony-stimulating factors. She is scheduled to look at the hospice care residence today and at the end of our discussion is leaning towards the hospice residence as opposed to trying to take her home. She recognizes that without 24-hour care he is likely to have more complications and be more symptomatic. He has clear left-sided weakness and left-sided neglect along with decreased mental status markedly even from when seen in the office over the past couple of months. He has oftentimes in the office been very unrealistic as to his ability to recover, although some of his recent statements to his and to me have made it more clear that he now does recognize that he has little chance for recovery. His current code status is DNR; this is certainly appropriate. Antibiotics will be continued for potential aspiration pneumonia per the hospitalist service until they feel that he has had an adequate course. [id number]/CPS #: [id number] [place]
[2018-12-05] MEDS: FILGRASTIM-SNDZ* 480 MCG/0.8 ML SYRINGE SUBCUT SCH (21:00)
[2018-12-06 05:55] LABS: Urine Appearance Clear; Urine Bacteria Absent (Absent); Urine Bilirubin Negative (Negative); Urine Blood Negative (Negative); Urine Color Yellow; Urine Glucose Negative (Negative); Urine Ketones Negative (Negative); Urine Nitrite Negative (Negative); Urine Protein 1+(30 mg/dL) (Negative); Urine Red Blood Cell Absent (Absent); Urine Specific Gravity 1.016 (1.010-1.030); Urine Squamous Epithelial Cell Present (Absent); Urine Urobilinogen Negative (Negative); Urine White Blood Cell Trace(0-5/hpf) (Absent)
[2018-12-06] MEDS: Cefepime 2 GM in Dextrose(*) 2 GM/50 ML BAG IV SCH (06:22)
[2018-12-06 06:44] LABS: ABS Basophils 0.1 10^3/ul (0-0.2); ABS Lymphocytes 0.9 10^3/ul (1.0-4.8); ABS Monocytes 0.2 10^3/ul (0-0.8); ABS Neutrophils 12.4 10^3/ul (1.5-7.7); Eosinophil % 0.1 %; Hematocrit 23 % (42-52); Hemoglobin 7.1 g/dL (14.0-18.0); Lymphocyte % 6.4 %; Mean Corpuscular HGB Conc 31 g/dL (31-36); Mean Corpuscular Hemoglobin 28 pg (27-31); Mean Corpuscular Volume 90 fL (80-94); Mean Platelet Volume 11.4 fL (7.4-10.4); Nucleated Red Blood Cells % 0.1; Platelet Count 87 10^3/uL (150-450); Red Blood Count 2.53 10^6 /uL (4.18-5.48); Red Cell Distribution Width 20 % (10-15); White Blood Count 13.6 10^3/uL (3.5-10.8)
[2018-12-06] MEDS: Acetaminophen ADULT LIQ* 650 MG/20.3 ML UDC PO PRN ×2 (08:50→21:11)
[2018-12-06] MEDS: Carvedilol TAB* 3.125 MG G TUBE SCH (08:56)
[2018-12-06] MEDS: Ascorbic Acid TAB* 500 MG G TUBE SCH (08:56)
[2018-12-06] MEDS: Sertraline* 100 MG TAB G TUBE SCH (08:56)
[2018-12-06] MEDS: Potassium Chloride* LIQUID 20 MEQ/15 ML UDC PEG TUBE SCH (08:57)
[2018-12-06] MEDS: Cholecalciferol TAB* 1000 UNITS G TUBE SCH (08:57)
[2018-12-06] MEDS: Clotrimazole 1% CREAM* 45 GM TOPICAL SCH ×2 (08:57→21:14)
[2018-12-06] MEDS: Ferrous Sulfate LIQ* 300 MG/5 ML UDC G TUBE SCH (08:57)
[2018-12-06] MEDS: Aspirin 81 mg CHEW TAB* 81 MG TAB.CHEW G TUBE SCH (08:57)
[2018-12-06] MEDS: Polyethylene Glycol 3350* 17 GM PACKET G TUBE SCH (08:57)
[2018-12-06] MEDS: Cyanocobalamin TAB* 500 MCG G TUBE SCH (08:57)
[2018-12-06] MEDS: Lansoprazole SUSP* ORALSYR 3 MG/ML PEG TUBE SCH ×2 (09:06→21:14)
[2018-12-06] MEDS: Lactobacillus Acidophilus* 1 TAB SCH ×2 (09:06→20:57)
[2018-12-06] MEDS: Ketoconazole 2 % CREAM (NF) 30 GM TUBE TOPICAL SCH ×2 (10:17→21:13)
[2018-12-06] MEDS: FILGRASTIM-SNDZ* 480 MCG/0.8 ML SYRINGE SUBCUT SCH (11:54)
--- NOTE | 2018-12-06 17:01 | PN ---
Subjective Date of Service: 12/06/18 Interval History: Decision made yesterday to pursue hospice on discharge. On discussion with today, she now expresses preference for starting comfort-directed care only. Patient continues to experience intermittent fevers, but she declines further investigation given likely need for invasive measures (from blood cultures to possible I&D, if with abscess, for example). Preference would be for all medications through G-tube, including water and tube feeds. No longer needs PIV , vitals, or blood draws. All of this was decided with patient's . Objective Active Medications: Acetaminophen (Tylenol Adult Liq*) 650 mg PO Q4H PRN PRN Reason: MILD PAIN or TEMP > 100.4 Last Admin: 12/06/18 08:50 Dose: 650 mg Albuterol/Ipratropium (Duoneb (Albuterol 2.5 Mg/Ipratropium 0.5 Mg)) 1 neb INH RT.[id number] AWAKE PRN PRN Reason: WHEEZING Ascorbic Acid (Vitamin C Tab*) 500 mg G TUBE EVERY OTHER DAY [facility] Last Admin: 12/06/18 08:56 Dose: 500 mg Aspirin (Aspirin 81 Mg Chew Tab*) 81 mg G TUBE DAILY [facility] Last Admin: 12/06/18 08:57 Dose: 81 mg Bisacodyl (Dulcolax Supp*) 10 mg [place] DAILY PRN PRN Reason: no bm in 3 days Last Admin: 11/30/18 11:12 Dose: 10 mg Cholecalciferol (Vitamin D Tab*) 1,000 units G TUBE EVERY OTHER DAY [facility] Last Admin: 12/06/18 08:57 Dose: 1,000 units Clotrimazole (Clotrimazole 1%*) 1 applic TOPICAL BID [facility] Last Admin: 12/06/18 08:57 Dose: 1 applic Cyanocobalamin (Vitamin B12 Tab*) 1,000 mcg G TUBE DAILY [facility] Last Admin: 12/06/18 08:57 Dose: 1,000 mcg Ferrous Sulfate (Feosol Liq*) 300 mg G TUBE EVERY OTHER DAY [facility] Last Admin: 12/06/18 08:57 Dose: 300 mg Filgrastim-Sndz (Zarxio*) 480 mcg SUBCUT DAILY@2100 [facility] Fluticasone Propionate (Flonase Nasal [place] 50mcg*) 2 spray BOTH NARES DAILY PRN PRN Reason: CONGESTION Last Admin: 12/03/18 22:17 Dose: 2 spray Guaifenesin (Robitussin*) 5 ml PO Q6H PRN PRN Reason: COUGH Last Admin: 12/05/18 19:40 Dose: 5 ml Ketoconazole (Nizoral 2% Cream (Nf)) 1 applic TOPICAL BID [facility]; Protocol Last Admin: 12/06/18 10:17 Dose: Not Given Lactobacillus Rhamnosus (Lactobacillus Acidophilus*) 1 tab .SEE ORDER BID [facility] Last Admin: 12/06/18 09:06 Dose: 1 tab Lansoprazole (Lansoprazole Susp* Oralsyr) 15 mg PEG TUBE BID [facility] Last Admin: 12/06/18 09:06 Dose: 15 mg Latanoprost (Xalatan 0.005%*) 1 drop BOTH EYES BEDTIME [facility]; Protocol Last Admin: 12/05/18 19:42 Dose: 1 drop Polyethylene Glycol/Electrolytes (Miralax*) 17 gm G TUBE EVERY OTHER DAY [facility] Last Admin: 12/06/18 08:57 Dose: 17 gm Senna (Senokot 8.6 Mg Tab*) 2 tab G TUBE BEDTIME PRN PRN Reason: CONSTIPATION Last Admin: 12/05/18 19:41 Dose: 2 tab Sertraline HCl (Zoloft*) 150 mg G TUBE DAILY [facility] Last Admin: 12/06/18 08:56 Dose: 150 mg Sodium Biphosphate/Sodium Phosphate (Fleet Enema*) 1 bottle [place] DAILY PRN PRN Reason: CONSTIPATION Sodium Chloride (Sodium Chloride 0.65% Nasal [place]*) 1 spray BOTH NARES Q4H PRN PRN Reason: CONGESTION Vital Signs - 8 hr 12/06/18 11:15 Temperature 98.7 F Pulse Rate 85 Respiratory 20 Rate Blood Pressure 90/48 (mmHg) O2 Sat by Pulse 100 Oximetry Oxygen Devices in Use Now: None Appearance: tired appearing man in NAD, occasionally coughs Eyes: No Scleral Icterus Ears/Nose/Mouth/Throat: Mucous Membranes Moist Neck: NL Appearance and Movements; NL JVP, Trachea Midline Respiratory: - - ronchi on anterior L chest Cardiovascular: RRR Abdominal: NL Sounds; No Tenderness; No Distention, No Hepatosplenomegaly Extremities: No Edema, - - no sacral edema Neurological: - - occasional one-word responses when alert Result Diagrams: 12/06/18 05:24 12/05/18 10:06 Additional Lab and Data: Laboratory Tests 12/03/18 12/03/18 06:02 07:06 Absolute Neuts (auto) 0.9 L* Absolute Lymphs (auto) 0.5 L C-Reactive Protein 189.92 H Microbiology and Other Data: Microbiology 11/30/18 08:27 Blood Venous Aerobic Blood Culture - Preliminary 11/30/18 08:27 Blood Venous Anaerobic Blood Culture - Preliminary No Growth Day 3 No Growth Day 3 11/30/18 05:52 Blood Venous Aerobic Blood Culture - Preliminary 11/30/18 05:52 Blood Venous Anaerobic Blood Culture - Preliminary No Growth Day 3 No Growth Day 3 EKG Data: sinus tach, LBBB on admission Assess/Plan/Problems-Billing Assessment: 78M with recurrent strokes c/b L-sided weakness, suspected a-fib, dysphagia s/p G-tube, admitted with sepsis, aspiration pneumonia - Patient Problems (1) Sepsis Comment: Due to aspiration pneumonia, althought fevers did not stop with typical CAP/anaerobe coverage. Could have abscess or a drug-resistant organism, however patient now comfort care, so wlil not pursue further investigations. - s/p Zosyn (11/30 - 12/03), Levaquin (12/03 - 12/04), cefepime (12/04 - 12/06) - aspiration precautions (2) Palliative care encounter Comment: - appreciate palliative care consult - plan for [place] with hospice on 12/08 (3) Myelodysplasia (myelodysplastic syndrome) Comment: Onc saw patient. Did not recommend Neupogen. (4) Troponin I above reference range Comment: - Dr. Busch advised medical management, ASA, beta mónica (5) H/O: CVA (cerebrovascular accident) Comment: Suspected cardioembolic source, but AC held given history of recent bleed. - s/p PEG, can have pleasure tastes (6) DNR (do not resuscitate) Current Visit: No Status: Acute Comment: Plan for hospice on DC. Comfort measures only now. Status and Disposition: Plan for SNF with hospice.
[2018-12-06] MEDS ORDERED: FILGRASTIM-SNDZ* 480 MCG/0.8 ML SYRINGE SUBCUT SCH (21:00)
[2018-12-06] MEDS: Latanoprost 0.005%* 2.5 ml BTL BOTH EYES SCH (21:14)
--- NOTE | 2018-12-07 07:59 | PN ---
Subjective Date of Service: 12/07/18 Interval History: Patient made comfort care yesterday. Plan is for SNF with hospice tomorrow. reports that patient had a difficult night given indigestion, possibly from continuous tube feeds all night. Pt was feeling well by the morning. Objective Active Medications: Acetaminophen (Tylenol Adult Liq*) 650 mg PO Q4H PRN PRN Reason: MILD PAIN or TEMP > 100.4 Last Admin: 12/06/18 21:11 Dose: 650 mg Albuterol/Ipratropium (Duoneb (Albuterol 2.5 Mg/Ipratropium 0.5 Mg)) 1 neb INH RT.[id number] AWAKE PRN PRN Reason: WHEEZING Ascorbic Acid (Vitamin C Tab*) 500 mg G TUBE EVERY OTHER DAY [facility] Last Admin: 12/06/18 08:56 Dose: 500 mg Aspirin (Aspirin 81 Mg Chew Tab*) 81 mg G TUBE DAILY [facility] Last Admin: 12/06/18 08:57 Dose: 81 mg Bisacodyl (Dulcolax Supp*) [address] DAILY PRN PRN Reason: no bm in 3 days Last Admin: 11/30/18 11:12 Dose: 10 mg Cholecalciferol (Vitamin D Tab*) 1,000 units G TUBE EVERY OTHER DAY [facility] Last Admin: 12/06/18 08:57 Dose: 1,000 units Clotrimazole (Clotrimazole 1%*) 1 applic TOPICAL BID [facility] Last Admin: 12/06/18 21:14 Dose: 1 applic Cyanocobalamin (Vitamin B12 Tab*) 1,000 mcg G TUBE DAILY [facility] Last Admin: 12/06/18 08:57 Dose: 1,000 mcg Ferrous Sulfate (Feosol Liq*) 300 mg G TUBE EVERY OTHER DAY [facility] Last Admin: 12/06/18 08:57 Dose: 300 mg Fluticasone Propionate (Flonase Nasal [place] 50mcg*) 2 spray BOTH NARES DAILY PRN PRN Reason: CONGESTION Last Admin: 12/03/18 22:17 Dose: 2 spray Guaifenesin (Robitussin*) 5 ml PO Q6H PRN PRN Reason: COUGH Last Admin: 12/05/18 19:40 Dose: 5 ml Ketoconazole (Nizoral 2% Cream (Nf)) 1 applic TOPICAL BID [facility]; Protocol Last Admin: 12/06/18 21:13 Dose: Not Given Lactobacillus Rhamnosus (Lactobacillus Acidophilus*) 1 tab .SEE ORDER BID [facility] Last Admin: 12/06/18 20:57 Dose: 1 tab Lansoprazole (Lansoprazole Susp* Oralsyr) 15 mg PEG TUBE BID [facility] Last Admin: 12/06/18 21:14 Dose: 15 mg Latanoprost (Xalatan 0.005%*) 1 drop BOTH EYES BEDTIME [facility]; Protocol Last Admin: 12/06/18 21:14 Dose: 1 drop Polyethylene Glycol/Electrolytes (Miralax*) 17 gm G TUBE EVERY OTHER DAY [facility] Last Admin: 12/06/18 08:57 Dose: 17 gm Senna (Senokot 8.6 Mg Tab*) 2 tab G TUBE BEDTIME PRN PRN Reason: CONSTIPATION Last Admin: 12/05/18 19:41 Dose: 2 tab Sertraline HCl (Zoloft*) 150 mg G TUBE DAILY [facility] Last Admin: 12/06/18 08:56 Dose: 150 mg Sodium Biphosphate/Sodium Phosphate (Fleet Enema*) [address] DAILY PRN PRN Reason: CONSTIPATION Sodium Chloride (Sodium Chloride 0.65% Nasal [place]*) 1 spray BOTH NARES Q4H PRN PRN Reason: CONGESTION Oxygen Devices in Use Now: None Appearance: tired appearing man in NAD, alert, occasional 1-word responses; engages with eye-contact Eyes: No Scleral Icterus Ears/Nose/Mouth/Throat: Clear Oropharnyx, Mucous Membranes Moist Neck: NL Appearance and Movements; NL JVP, Trachea Midline Respiratory: Symmetrical Chest Expansion and Respiratory Effort, Clear to Auscultation Cardiovascular: NL Sounds; No Murmurs; No JVD, RRR Abdominal: NL Sounds; No Tenderness; No Distention - G-tube in place with dressing c/d/i, No Hepatosplenomegaly Extremities: No Edema Result Diagrams: 12/06/18 05:24 12/05/18 10:06 Additional Lab and Data: Laboratory Tests 12/03/18 12/03/18 06:02 07:06 Absolute Neuts (auto) 0.9 L* Absolute Lymphs (auto) 0.5 L C-Reactive Protein 189.92 H Microbiology and Other Data: Microbiology 11/30/18 08:27 Blood Venous Aerobic Blood Culture - Preliminary 11/30/18 08:27 Blood Venous Anaerobic Blood Culture - Preliminary No Growth Day 3 No Growth Day 3 11/30/18 05:52 Blood Venous Aerobic Blood Culture - Preliminary 11/30/18 05:52 Blood Venous Anaerobic Blood Culture - Preliminary No Growth Day 3 No Growth Day 3 EKG Data: sinus tach, LBBB on admission Assess/Plan/Problems-Billing Assessment: 78M with recurrent strokes c/b L-sided weakness, suspected a-fib, dysphagia s/p G-tube, admitted with sepsis, aspiration pneumonia - Patient Problems (1) Sepsis Comment: Due to aspiration pneumonia, althought fevers did not stop with typical CAP/anaerobe coverage. Could have abscess or a drug-resistant organism, however patient now comfort care, so wlil not pursue further investigations. - s/p Zosyn (11/30 - 12/03), Levaquin (12/03 - 12/04), cefepime (12/04 - 12/06) - aspiration precautions (2) Palliative care encounter Comment: - appreciate palliative care consult - plan for [place] with hospice on 12/08 (3) Myelodysplasia (myelodysplastic syndrome) Comment: Onc saw patient. Did not recommend Neupogen. (4) Troponin I above reference range Comment: - Dr. Busch advised medical management, ASA, beta mónica (5) H/O: CVA (cerebrovascular accident) Comment: Suspected cardioembolic source, but AC held given history of recent bleed. - s/p PEG, can have pleasure tastes (6) DNR (do not resuscitate) Current Visit: No Status: Acute Comment: Plan for hospice on DC. Comfort measures only now. Status and Disposition: Plan for SNF with hospice.
[2018-12-07] MEDS: Lactobacillus Acidophilus* 1 TAB SCH ×2 (10:27→22:40)
[2018-12-07] MEDS: Aspirin 81 mg CHEW TAB* 81 MG TAB.CHEW G TUBE SCH (10:27)
[2018-12-07] MEDS: Sertraline* 100 MG TAB G TUBE SCH (10:27)
[2018-12-07] MEDS: Lansoprazole SUSP* ORALSYR 3 MG/ML PEG TUBE SCH ×2 (10:27→22:39)
[2018-12-07] MEDS: Cyanocobalamin TAB* 500 MCG G TUBE SCH (10:28)
[2018-12-07] MEDS: Ketoconazole 2 % CREAM (NF) 30 GM TUBE TOPICAL SCH (10:28)
[2018-12-07] MEDS: Clotrimazole 1% CREAM* 45 GM TOPICAL SCH ×2 (10:28→22:47)
[2018-12-07] MEDS ORDERED: SIMETHICONE SUSP* ORALSYR 66.66 MG/ML G TUBE PRN (11:47)
[2018-12-07] MEDS ORDERED: Morphine ORAL CONCENTRATE* 5 MG/0.25 ML ORAL.SYRIN SL PRN (20:01)
[2018-12-07] MEDS: Acetaminophen ADULT LIQ* 650 MG/20.3 ML UDC PO PRN (22:40)
[2018-12-07] MEDS: Latanoprost 0.005%* 2.5 ml BTL BOTH EYES SCH (22:47)
--- NOTE | 2018-12-07 23:19 | DS ---
CC: Alvina Reid NP; Dr. Benny Vallecillo DISCHARGE SUMMARY: DATE OF ADMISSION: 11/30/18 DATE OF DISCHARGE: 12/08/18 PRIMARY CARE PROVIDER: Alvina Reid NP ONCOLOGIST: Dr. Benny Vallecillo. PRIMARY DIAGNOSES: 1. Aspiration pneumonia complicated by sepsis. 2. Fevers of unknown origin. 3. Cerebrovascular accident complicated by left-sided weakness and dysphagia, status post G-tube. 4. Myelodysplasia. SECONDARY DIAGNOSES: 1. Coronary artery disease. 2. Heart failure, reduced ejection fraction. 3. Hypertension. 4. History of prostate cancer. CONSULTATIONS: Dr. Niño and Dr. Mccord of Palliative Care, Dr. Vallecillo of Oncology. DISCHARGE MEDICATIONS: 1. Aspirin 81 mg daily. 2. Acetaminophen 1000 mg every 8 hours as needed for fever or mild pain. 3. Morphine oral concentrate 5 mg sublingual every 2 hours as needed for dyspnea or [id number] pain. 4. Clotrimazole 1% cream apply topically twice a day for 2 more weeks. 5. Fluticasone nasal spray 1 spray to both nares daily. 6. Sertraline 150 mg through G-tube daily. 7. Lansoprazole 15 mg through PEG tube daily. 8. Guaifenesin 5 mL every 6 hours as needed for cough. 9. Bisacodyl 10 mg suppository per rectum every day as needed for constipation. 10. Polyethylene glycol 17 g through G-tube every day as needed for constipation. 11. Senna 2 tabs nightly through G-tube as needed for constipation. 12. Simethicone 40 mg through G-tube as needed for indigestion. 13. Latanoprost 1 drop to both eyes daily at bedtime. 14. Lactobacillus 1 tablet daily through G-tube. 15. Ferrous sulfate 300 mg through G-tube daily on an empty stomach. 16. Vitamin B12 1000 mcg daily through G-tube. 17. Vitamin D3 1000 units daily through G-tube. 18. Vitamin C 500 mg daily through G-tube. 19. DuoNeb inhaler every 4 hours as needed for shortness of breath. HISTORY OF PRESENT ILLNESS/HOSPITAL COURSE: Mr. Cramer is an 78-year-old man with multiple prior CVAs complicated by left-sided weakness and neglect with dysphagia, status post recent PEG tube placement; also with myelodysplastic syndrome; heart failure with reduced ejection fraction; and hypertension, who is presenting with copious productive cough of sputum and tube feeds. Of note, the patient was hospitalized last month for an aspiration pneumonia. At that time, he failed a swallow evaluation and received PEG tube placement from Dr. Watson. On 10/30/18, he was discharged from that hospitalization and was able to tolerate oral water, pablito juice with his scrambled eggs without issue, but then he returned to the hospital the next day as he was found on the floor of his long-term facility with coffee-ground emesis. He was admitted to the hospital and intubated for several days, was given a course of antibiotics. Another evaluation by swallow therapist revealed that the patient was unable to tolerate any food per mouth. He was restarted on tube feeds on 11/15/18. Approximately 11 days later when he was given a bolus of Jevity tube feeding, his PEG tube again began to bleed heavily at the insertion site. He was readmitted to the hospital for management of that bleeding and discharged 2 days later, which was 2 days ago. For the last 2 days, he has been at [facility] and began coughing up the Jevity tube feeds and was having severe difficulty breathing with a gurgly quality to his voice. At that point, he was brought again to the emergency room. HOSPITAL COURSE: Upon presentation, he received multiple boluses of IV fluid and was started on Zosyn given a fever of 103.3. He was making frequent throat clearing noises, but did deny chest pain or respiratory distress. He was admitted to the medical service with diagnosis of severe sepsis from aspiration pneumonia, evidenced by the patient's symptoms of coughing up his tube feeds, fever, tachycardia, tachypnea, with a lactic acid of 3.1. The patient did also have an elevated troponin on admission of 0.05. Curbside consult with Cardiology had low suspicion for an acute ischemic event and thought this was likely from demand ischemia in the setting of tachycardia. The patient remained on aspirin throughout admission and continued to deny chest pain and did not have new acute ischemic changes on his EKG. By the next morning, the patient and his met with Dr. Cheryl Niño of Palliative Care. It was made clear of the very poor prognosis her is facing and his currently very poor quality of life with frequent hospitalizations and difficulty with daily functioning, such as feeding and protecting his airway. Initially, wanted to pursue full pneumonia treatment with hope to bring her home. was made aware that the patient would be eligible for hospice services based on his neurologic dysfunction with dysphagia and aspiration. initially wanted to consider this option while currently pursuing full treatment-directed management. Throughout hospitalization, while the patient was maintained on Zosyn, it was noted that his neutrophils began to significantly decrease to the point of neutropenia, so Zosyn was discontinued and he was switched to Levaquin. Oncology was also consulted for possibility of giving the patient Neupogen. Dr. Vallecillo saw and evaluated the patient and gave one dose of Neupogen with good effect. When the patient was switched to Levaquin, he became more confused and weak, so this was changed to cefepime given neutropenic fevers, and his symptoms significantly improved. The patient was not given VANCOMYCIN given history of allergy and he was not started on linezolid given severe interaction with SSRIs. Curbside with ID stated that neutropenic fevers do not necessarily require MRSA coverage. While the patient symptomatically improved, he was continuing to have intermittent fevers after 6 days on appropriate coverage for aspiration pneumonia. Workup of fevers, which initially included more blood cultures, clearly put the patient in visible distress. met with palliative care provider, Dr. Mccord, and did express desire to pursue hospice on discharge. Discussion between medical team and decided to start comfort care measures in the hospital, as the patient is distressed and having poor quality of life from further investigations such as blood draws. declined further imaging studies to explore for cause of fever such as abscess, as intervention for this would require more invasive procedures, such as an incision and drainage, and did not want to pursue aggressive medical interventions. Decision was made with to stop antibiotics, stop checking vital signs and labs, and continue comfort directed measures only. The patient was continued on tube feeds and most of his home medications, including topical antifungals. PERTINENT STUDIES AND LABS: Last CBC with leukocytes 13.6 increased from prior day 2.5, hemoglobin 7.1, and platelets 87. This was 1 day after Neupogen was given. BMP unremarkable. UA with protein. Chest x-ray on 11/30/18 with mild cardiomegaly with pulmonary interstitial edema. Abdomen x-ray on 11/30/18 with nonobstructive bowel gas pattern; punctate calculi in the region of the right kidney, could represent nephrolithiasis; bibasilar subsegmental atelectasis is suspected, although infiltrate could have a similar appearance; G-tube in place. Microbiology with 4 sets of blood cultures with no growth to date Urine culture also with no growth to date. DISCHARGE PLAN: The patient will be discharged to [facility] with hospice services. He can continue to follow up with his long-term outpatient providers if him and his desire. He has had certain medications discontinued that were deemed to be of little benefit given the patient's incredibly poor prognosis, and his beta-mónica was also discontinued due to occasionally low blood pressures throughout admission. Him and his were educated on return precautions, which mainly include extreme symptoms unable to be controlled with hospice care. His diet will mostly consist of tube feeds, although he can have very small taste for pleasure and he may resume activity as able. DISPOSITION: To [facility]. CONDITION: Improved. TIME SPENT: Approximately 60 minutes was spent on discharge of this patient, more than half of which was spent with care coordination at bedside for interview and exam. [id number]/[facility] #: [id number] [place]
[2018-12-08] MEDS: Ascorbic Acid TAB* 500 MG G TUBE SCH (09:33)
[2018-12-08] MEDS: Lansoprazole SUSP* ORALSYR 3 MG/ML PEG TUBE SCH (09:33)
[2018-12-08] MEDS: Sertraline* 100 MG TAB G TUBE SCH (09:33)
[2018-12-08] MEDS: Cholecalciferol TAB* 1000 UNITS G TUBE SCH (09:33)
[2018-12-08] MEDS: Aspirin 81 mg CHEW TAB* 81 MG TAB.CHEW G TUBE SCH (09:33)
[2018-12-08] MEDS: Ferrous Sulfate LIQ* 300 MG/5 ML UDC G TUBE SCH (09:33)
[2018-12-08] MEDS: Lactobacillus Acidophilus* 1 TAB SCH (09:33)
[2018-12-08] MEDS: Clotrimazole 1% CREAM* 45 GM TOPICAL SCH (09:34)
[2018-12-08] MEDS: Polyethylene Glycol 3350* 17 GM PACKET G TUBE SCH (09:34)
--- NOTE | 2018-12-08 10:04 | PN ---
Subjective Date of Service: 12/08/18 Interval History: Pt had an uneventful night. Tube feeds were held during sleep and he was without indigestion or reflux. He denies pain or SOB on exam this morning. Also denies chills, chest pain. He had a large BM today after laxatives administered yesterday. Objective Active Medications: Acetaminophen (Tylenol Adult Liq*) 650 mg PO Q4H PRN PRN Reason: MILD PAIN or TEMP > 100.4 Last Admin: 12/07/18 22:40 Dose: 650 mg Albuterol/Ipratropium (Duoneb (Albuterol 2.5 Mg/Ipratropium 0.5 Mg)) 1 neb INH RT.[id number] AWAKE PRN PRN Reason: WHEEZING Ascorbic Acid (Vitamin C Tab*) 500 mg G TUBE EVERY OTHER DAY [facility] Last Admin: 12/08/18 09:33 Dose: 500 mg Aspirin (Aspirin 81 Mg Chew Tab*) 81 mg G TUBE DAILY [facility] Last Admin: 12/08/18 09:33 Dose: 81 mg Bisacodyl (Dulcolax Supp*) 10 mg MD DAILY PRN PRN Reason: no bm in 3 days Last Admin: 11/30/18 11:12 Dose: 10 mg Cholecalciferol (Vitamin D Tab*) 1,000 units G TUBE EVERY OTHER DAY [facility] Last Admin: 12/08/18 09:33 Dose: 1,000 units Clotrimazole (Clotrimazole 1%*) 1 applic TOPICAL BID [facility] Last Admin: 12/08/18 09:34 Dose: 1 applic Cyanocobalamin (Vitamin B12 Tab*) 1,000 mcg G TUBE DAILY [facility] Last Admin: 12/07/18 10:28 Dose: 1,000 mcg Ferrous Sulfate (Feosol Liq*) 300 mg G TUBE EVERY OTHER DAY [facility] Last Admin: 12/08/18 09:33 Dose: 300 mg Fluticasone Propionate (Flonase Nasal [place] 50mcg*) 2 spray BOTH NARES DAILY PRN PRN Reason: CONGESTION Last Admin: 12/03/18 22:17 Dose: 2 spray Guaifenesin (Robitussin*) 5 ml PO Q6H PRN PRN Reason: COUGH Last Admin: 12/05/18 19:40 Dose: 5 ml Lactobacillus Rhamnosus (Lactobacillus Acidophilus*) 1 tab .SEE ORDER BID [facility] Last Admin: 12/08/18 09:33 Dose: 1 tab Lansoprazole (Lansoprazole Susp* Oralsyr) 15 mg PEG TUBE BID [facility] Last Admin: 12/08/18 09:33 Dose: 15 mg Latanoprost (Xalatan 0.005%*) 1 drop BOTH EYES BEDTIME [facility]; Protocol Last Admin: 12/07/18 22:47 Dose: 1 drop Morphine Sulfate (Morphine Oral Concentrate*) 5 mg SL Q2H PRN PRN Reason: dyspnea or mod to severe pain Polyethylene Glycol/Electrolytes (Miralax*) 17 gm G TUBE EVERY OTHER DAY [facility] Last Admin: 12/08/18 09:34 Dose: Not Given Senna (Senokot 8.6 Mg Tab*) 2 tab G TUBE BEDTIME PRN PRN Reason: CONSTIPATION Last Admin: 12/05/18 19:41 Dose: 2 tab Sertraline HCl (Zoloft*) 150 mg G TUBE DAILY [facility] Last Admin: 12/08/18 09:33 Dose: 150 mg Simethicone (Mylicon Drops* Oralsyr) 40 mg G TUBE BID PRN PRN Reason: INDIGESTION Last Admin: 12/07/18 15:24 Dose: 40 mg Sodium Chloride (Sodium Chloride 0.65% Nasal [place]*) 1 spray BOTH NARES Q4H PRN PRN Reason: CONGESTION Oxygen Devices in Use Now: None Appearance: elderly man in NAD, alert but minimally interactive, can say 1-word responses to questions; engages with eye contact Eyes: No Scleral Icterus Ears/Nose/Mouth/Throat: Clear Oropharnyx, Mucous Membranes Moist Neck: NL Appearance and Movements; NL JVP, Trachea Midline Respiratory: Symmetrical Chest Expansion and Respiratory Effort, Clear to Auscultation Cardiovascular: NL Sounds; No Murmurs; No JVD, RRR Abdominal: NL Sounds; No Tenderness; No Distention - g-tube in place with dressing c/d/i, No Hepatosplenomegaly - no sacral edema Extremities: - - trace ankle edema b/l Neurological: - - L-sided facial droop, L arm 2/5 strength, L-sided ramses-neglect Result Diagrams: 12/06/18 05:24 12/05/18 10:06 Additional Lab and Data: Laboratory Tests 10/20/19 10/20/19 06:02 07:06 Absolute Neuts (auto) 0.9 L* Absolute Lymphs (auto) 0.5 L C-Reactive Protein 189.92 H Microbiology and Other Data: Microbiology 11/30/18 08:27 Blood Venous Aerobic Blood Culture - Preliminary 11/30/18 08:27 Blood Venous Anaerobic Blood Culture - Preliminary No Growth Day 3 No Growth Day 3 11/30/18 05:52 Blood Venous Aerobic Blood Culture - Preliminary 11/30/18 05:52 Blood Venous Anaerobic Blood Culture - Preliminary No Growth Day 3 No Growth Day 3 EKG Data: sinus tach, LBBB on admission Assess/Plan/Problems-Billing Assessment: 78M with recurrent strokes c/b L-sided weakness, suspected a-fib, dysphagia s/p G-tube, admitted with sepsis, aspiration pneumonia. Hospital course significant for decision to be made comfort care given poor quality of life from frequent admissions in setting of poor prognosis from multiple medical conditions. - Patient Problems (1) Sepsis Comment: Due to aspiration pneumonia, althought fevers did not stop with typical CAP/anaerobe coverage. Could have abscess or a drug-resistant organism, however patient now comfort care, so wlil not pursue further investigations. - s/p Zosyn (11/30 - 12/03), Levaquin (12/03 - 12/04), cefepime (12/04 - 12/06) - aspiration precautions (2) Palliative care encounter Comment: - appreciate palliative care consult - plan for [place] with hospice on 12/08 (3) Myelodysplasia (myelodysplastic syndrome) Comment: Onc saw patient. s/p 1 dose of Neupogen with good response. (4) Troponin I above reference range Comment: - Dr. Busch advised medical management, ASA - stopped bb due to low BP (5) H/O: CVA (cerebrovascular accident) Comment: Suspected cardioembolic source, but AC held given history of recent bleed. - s/p PEG, can have pleasure tastes (6) DNR (do not resuscitate) Current Visit: No Status: Acute Comment: Plan for hospice on DC. Comfort measures only now. Status and Disposition: Plan for SNF with hospice.
[2018-12-08] MEDS: Cyanocobalamin TAB* 500 MCG G TUBE SCH (10:09)
[2018-12-08 12:27] VITALS: BP 116/59
== END 2018-12-08 10:30 | DRG 871 ==
LOC: ED 03:23 → MED 07:24 → OBSVTOIN 12-01 11:00
PROVIDERS: ADMIT Internal Medicine; ATTEND Internal Medicine
DX: A41.9 Sepsis, unspecified organism (principal); J69.0 Pneumonitis due to inhalation of food and vomit; I69.354 Hemiplegia and hemiparesis following cerebral infarction affecting left non-dominant side; E46 Unspecified protein-calorie malnutrition; I50.22 Chronic systolic (congestive) heart failure; R65.20 Severe sepsis without septic shock; K21.9 Gastro-esophageal reflux disease without esophagitis; J30.1 Allergic rhinitis due to pollen; D46.9 Myelodysplastic syndrome, unspecified; I25.10 Atherosclerotic heart disease of native coronary artery without angina pectoris; E78.00 Pure hypercholesterolemia, unspecified; I44.7 Left bundle-branch block, unspecified; G47.30 Sleep apnea, unspecified; N40.0 Benign prostatic hyperplasia without lower urinary tract symptoms; M48.061 Spinal stenosis, lumbar region without neurogenic claudication; H40.9 Unspecified glaucoma; H35.30 Unspecified macular degeneration; F32.9 Major depressive disorder, single episode, unspecified; I11.0 Hypertensive heart disease with heart failure; R79.89 Other specified abnormal findings of blood chemistry; E78.5 Hyperlipidemia, unspecified; I48.91 Unspecified atrial fibrillation; Z66 Do not resuscitate; N20.0 Calculus of kidney; Z51.5 Encounter for palliative care; D70.9 Neutropenia, unspecified; R50.81 Fever presenting with conditions classified elsewhere; Z90.79 Acquired absence of other genital organ(s); Z88.8 Allergy status to other drugs, medicaments and biological substances; Z88.1 Allergy status to other antibiotic agents; Z91.011 Allergy to milk products; Z91.018 Allergy to other foods; Z91.013 Allergy to seafood; Z87.442 Personal history of urinary calculi; Z85.46 Personal history of malignant neoplasm of prostate; Z85.830 Personal history of malignant neoplasm of bone; Z95.1 Presence of aortocoronary bypass graft; Z95.5 Presence of coronary angioplasty implant and graft; Z86.19 Personal history of other infectious and parasitic diseases; Z87.891 Personal history of nicotine dependence; I69.391 Dysphagia following cerebral infarction; I69.392 Facial weakness following cerebral infarction; Z93.1 Gastrostomy status; Z68.27 Body mass index [BMI] 27.0-27.9, adult; Z79.82 Long term (current) use of aspirin
CPT/HCPCS: 36415; 71046; 74019; 80048; 80053; 81003; 81015; 83605; 83735; 84484; 85025; 85060; 85610; 85730; 86140; 87040; 87086; 93005; 93306; 94667; 94668; 96361; 96365; 99284; A9270-GY; G0378; G8978-GP-CL; G8979-GP-CK; J0692; J1650; J2060; J2270; J2405; J2543; Q5101